=== PATIENT | male | born 1955 | race Two or more races ===

== ENCOUNTER 2017-08-17 17:26 | Inpatient (IN) | payer OTHER ==
[~2017-08-17] VITALS: Ht 167.6 cm; Wt 54.4 kg
[2017-08-17] MEDS ORDERED: ACETAMINOPHEN325 M1 ORAL (17:34)
[2017-08-17] MEDS ORDERED: ANDRODERM1 EAC2 TD (17:36)
[2017-08-17] MEDS ORDERED: ALBUTEROL2.5 MG/3 M INH (17:36)
[2017-08-17] MEDS ORDERED: CEPHALEXIN750 MG ORAL (17:39)
[2017-08-17] MEDS ORDERED: VITAMIN D1000 UNI1 ORAL (17:39)
[2017-08-17] MEDS ORDERED: CEFEPIME-D2 GM/50 ML IVPB (17:39)
[2017-08-17] MEDS ORDERED: [UNRECOGNIZED DRUG - OTHER] (17:39)
[2017-08-17] MEDS ORDERED: BACTRIM-DS1 EA ORAL (17:39)
[2017-08-17] MEDS ORDERED: POLYETHYLENE GLY1 G1 MC (17:42)
[2017-08-17] MEDS ORDERED: FAMOTIDINE20 MG ORAL (17:42)
[2017-08-17] MEDS ORDERED: IPRATROPIU0.2 MG/1 M HHN (17:56)
[2017-08-17] MEDS ORDERED: OXYCODONE-ACET1 EAC3 ORAL (17:56)
[2017-08-17] MEDS ORDERED: MULTIVITAMINS1 EAC8 ORAL (17:56)
[2017-08-17] MEDS ORDERED: MS CONTIN30 MG ORAL (17:56)
[2017-08-17] MEDS ORDERED: ACIDOPHILUS-PE1 EAC3 PO (17:56)
[2017-08-17] MEDS ORDERED: MAALOX PLUS (17:56)
[2017-08-17] MEDS ORDERED: SENNA LAXATIVE1 EAC1 PO (17:56)
[2017-08-17] MEDS ORDERED: AMBIEN5 MG ORAL (17:57)
[2017-08-17] MEDS ORDERED: ZINC30 MG ORAL (17:57)
[2017-08-17] MEDS ORDERED: TUBERSOL (PPD)0.1 ML IDERMAL (17:57)
[2017-08-17] MEDS ORDERED: SYNTHROID50 MCG ORAL (17:57)
--- NOTE | 2017-08-17 18:03 | Emergency Room Report ---
History of Present Illness General Chief Complaint: Altered Level of Consciousness Source: Family Member Present Illness HPI 62-year-old male, history of right facial lymphoma, was on chemotherapy, rate legs necrotizing fasciitis with a wound VAC, surgery done at outside hospital 2 weeks ago, coming from long term for altered mental status. Patient is currently not providing any history, history is obtained by [id number]. Daughter lives states that his normal mental status is awake alert oriented x3, he walked prior to the necrotizing fasciitis. States the last seen normal was yesterday. States that long term states that he is not talking or eating. Denies any known trauma Allergies: Coded Allergies: No Known Allergies (Unverified , 08/17/17) Patient History Past Medical History: see triage record Past Surgical History: none Pertinent Family History: none Reviewed Nursing Documentation: PMH: Agreed, PSxH: Agreed Nursing Documentation-PMH Hx Cancer: Yes - lymphoma Review of Systems All Other Systems: limited - altered Physical Exam Vital Signs Date Time Temp Pulse Resp B/P (MAP) Pulse Ox O2 Delivery O2 Flow Rate FiO2 08/17/17 17:18 72 17 126/82 100 Room Air Sp02 EP Interpretation: reviewed, normal General Appearance: other - Chronically ill-appearing thin middle-aged male, eyes open, eye contact, however not speaking, appears altered, Chronically Ill Head: normocephalic, atraumatic Eyes: bilateral eye normal inspection, bilateral eye PERRL, bilateral eye EOMI ENT: dry mucus membranes, other - abnormal R facial bone 2/2 to lymphoma Neck: normal inspection, full range of motion, supple Respiratory: normal inspection, lungs clear, normal breath sounds, no respiratory distress, no retraction, no wheezing, speaking full sentences, chest symmetrical Cardiovascular #1: normal inspection, regular rate, rhythm, normal capillary refill Cardiovascular #2: 2+ radial (R), 2+ radial (L) Gastrointestinal: normal inspection, non tender, soft, non-distended, no guarding, other - no grimace deep palpation Musculoskeletal: other - Right thigh with large surgical wound, wound VAC is attached, full range of motion passively all extremities, right chest with chemotherapy port Neurologic: other - altered and nonverbal, moves all ext spont Psychiatric: other - altered Skin: normal inspection, normal color, no rash, warm/dry, normal turgor Medical Decision Making Diagnostic Impression: Primary Impression: Altered level of consciousness Additional Impressions: Acute renal failure Dehydration Metabolic acidosis ER Course 62-year-old male with altered mental status DDX: Dehydration, electrolyte disturbance, infectious UTI/PNA ACS, Neuro: CVA / Intracranial bleed Plan: Accucheck, labs, ua, ucx, EKG, CXR CT head ER course: Vitals have remained stable during ED stay Patient continues to be awake however still not speaking CT Head likely calcifications but cannot completely exclude hematoma Labs significant for a bicarbonate of 7, and renal failure. Potassium is normal per son, patient has never had renal problems IVF given to patient Disposition: Patient is to be admitted to telemetry D/W Dr Sherif Dailey who has accepted pt for admission Please note that this Emergency Department Report was dictated using Flytenowmusical engineer technology software, occasionally this can lead to erroneous entry secondary to interpretation by the dictation equipment EKG Diagnostic Results EP Interpretation: Yes Rate: Tachycardic Rhythm: NSR ST Segments: T wave inversion aVL ASA given to patient: No Rhythm Strip EP Interpretation: Yes Rate: 100 Rhythm: NSR, no PVCs, no ectopy CXR Ordered: Yes 1 view Indication: AMS EP interpretation: Yes Interpretation: No consolidation, no effusion, no PTX, no acute cardiopulmonary disease Impression: No acute disease Electronically signed by Jeannette Torres MD Laboratory Tests Test 08/17/17 18:17 08/17/17 19:11 White Blood Count 7.4 K/UL (4.8-10.8) Red Blood Count 3.44 M/UL (4.70-6.10) L Hemoglobin 11.3 G/DL (14.2-18.0) L Hematocrit 34.9 % (42.0-52.0) L Mean Corpuscular Volume 101 FL (80-99) H Mean Corpuscular Hemoglobin 32.7 PG (27.0-31.0) H Mean Corpuscular Hemoglobin Concent 32.3 G/DL (32.0-36.0) Red Cell Distribution Width 17.4 % (11.6-14.8) H Platelet Count 370 K/UL (150-450) Mean Platelet Volume 5.7 FL (6.5-10.1) L Neutrophils (%) (Auto) 77.4 % (45.0-75.0) H Lymphocytes (%) (Auto) 3.7 % (20.0-45.0) L Monocytes (%) (Auto) 17.9 % (1.0-10.0) H Eosinophils (%) (Auto) 0.0 % (0.0-3.0) Basophils (%) (Auto) 0.9 % (0.0-2.0) Sodium Level 138 MMOL/L (136-145) Potassium Level 5.1 MMOL/L (3.5-5.1) Chloride Level 110 MMOL/L (98-107) H Carbon Dioxide Level 7 MMOL/L (21-32) *L Anion Gap 21 mmol/L (5-15) H Blood Urea Nitrogen 88 mg/dL (7-18) H Creatinine 5.8 MG/DL (0.55-1.30) H Estimate Glomerular Filtration Rate 10.0 mL/min (>60) Glucose Level 81 MG/DL (74-106) Lactic Acid Level 1.00 mmol/L (0.66-2.22) Calcium Level 10.0 MG/DL (8.5-10.1) Total Bilirubin 0.3 MG/DL (0.2-1.0) Aspartate Amino Transferase (AST) 42 U/L (15-37) H Alanine Aminotransferase (ALT) 53 U/L (12-78) Alkaline Phosphatase 91 U/L (46-116) Troponin I 0.007 ng/mL (0.000-0.056) Pro-B-Type Natriuretic Peptide 5409 pg/mL (0-125) H Total Protein 8.4 G/DL (6.4-8.2) H Albumin 2.4 G/DL (3.4-5.0) L Globulin 6.0 g/dL Arterial Blood pH 7.257 (7.350-7.450) Arterial Blood Partial Pressure CO2 18.6 mmHg (35.0-45.0) *L Arterial Blood Partial Pressure O2 119.7 mmHg (75.0-100.0) H Arterial Blood HCO3 8.1 mmol/L (22.0-26.0) L Arterial Blood Oxygen Saturation 98.0 % (92.0-98.0) Arterial Blood Base Excess -17.[address]/MRI/US Diagnostic Results CT/MRI/US Diagnostic Results : Imaging Test Ordered: CT Head Impression CT HEAD: Right basal ganglia 10 x 4 cm hyperdensity likely chronic calcifications, small hematoma less likely but cannot be entirely excluded. Chronic ischemic changes. Cannot exclude [id number] ischemia. Right maxillary sinus chronic deformity. Opacities in the right mastoid air cells. STAT RAD result Last Vital Signs Date Time Temp Pulse Resp B/P (MAP) Pulse Ox O2 Delivery O2 Flow Rate FiO2 08/17/17 17:18 72 17 126/82 100 Room Air Jeannette Torres M.D. Aug 17, 2017 18:03
[2017-08-17 18:40] LABS: BASOPHILS % (AUTO) 0.9 % (0.0-2.0); LYMPHOCYTES % (AUTO) 3.7 % (20.0-45.0); MEAN CORPUSCULAR HEMOGLOBIN 32.7 PG (27.0-31.0); MEAN CORPUSCULAR HGB CONC 32.3 G/DL (32.0-36.0); MEAN CORPUSCULAR VOLUME 101 FL (80-99); MEAN PLATELET VOLUME 5.7 FL (6.5-10.1); MONOCYTES % (AUTO) 17.9 % (1.0-10.0); NEUTROPHILS % (AUTO) 77.4 % (45.0-75.0); PLATELET COUNT 370 K/UL (150-450); RED BLOOD COUNT 3.44 M/UL (4.70-6.10); RED CELL DISTRIBUTION WIDTH 17.4 % (11.6-14.8); WHITE BLOOD COUNT 7.4 K/UL (4.8-10.8)
[2017-08-17 18:44] VITALS: BP 96/64
[2017-08-17 19:04] LABS: ANION GAP 21 mmol/L (5-15); CHLORIDE 110 MMOL/L (98-107); CREATININE 5.8 MG/DL (0.55-1.30); POTASSIUM 5.1 MMOL/L (3.5-5.1); SODIUM 138 MMOL/L (136-145)
[2017-08-17 19:05] LABS: CARBON DIOXIDE 7 MMOL/L (21-32)
[2017-08-17] MEDS ORDERED: Sodium Bicarbonate 50ml Carp IV ONE (19:15)
[2017-08-17 19:18] LABS: ALANINE AMINOTRANSFERASE 53 U/L (12-78); ASPARTATE AMINO TRANSFERASE 42 U/L (15-37); TOTAL PROTEIN 8.4 G/DL (6.4-8.2)
[2017-08-17 19:58] LABS: ABG ALLEN TEST POSITIVE; ABG PCO2 18.6 mmHg (35.0-45.0)
[2017-08-17 20:44] VITALS: BP 112/65
[2017-08-17] MEDS ORDERED: Sodium Bicarbonate 8.4% 50ml Inj ONE (22:04)
[2017-08-17] MEDS: Sodium Bicarbonate 50 ML in NS 1000ml 1,000 ML IV SCH (22:09)
[2017-08-17 22:22] VITALS: BP 118/61
[2017-08-17 22:30] VITALS: BP 121/54
[2017-08-17] MEDS ORDERED: Mylanta II UD 30ml ORAL PRN (23:00)
[2017-08-17] MEDS ORDERED: Morphine Sulfate 2mg/ml Inj IVP PRN (23:00)
[2017-08-17] MEDS ORDERED: LORazepam Inj 2mg/ml 1ml IV PRN (23:00)
[2017-08-17] MEDS ORDERED: Zolpidem 5mg tab ORAL PRN (23:00)
[2017-08-17] MEDS ORDERED: Miralax 17gm pkt ORAL PRN (23:00)
[2017-08-18] VITALS (23 sets, daily range): BP systolic 108–138; BP diastolic 46–115
[2017-08-18 00:11] LABS: ALANINE AMINOTRANSFERASE 45 U/L (12-78); ALBUMIN/GLOBULIN RATIO 0.4 (1.0-2.7); ANION GAP 17 mmol/L (5-15); ASPARTATE AMINO TRANSFERASE 39 U/L (15-37); CALCIUM 8.9 MG/DL (8.5-10.1); CARBON DIOXIDE 12 MMOL/L (21-32); CHLORIDE 114 MMOL/L (98-107); CREATININE 5.6 MG/DL (0.55-1.30); FREE T3 < 0.6 pg/mL (2.3-4.2); GLOMERULAR FILTRATION RATE 10.4 mL/min (>60); MAGNESIUM 2.5 MG/DL (1.8-2.4); OSMOLALITY SERUM 332 mOsm/kg (297-317); PHOSPHORUS 5.8 MG/DL (2.5-4.9); POTASSIUM 5.1 MMOL/L (3.5-5.1); SODIUM 143 MMOL/L (136-145); TOTAL PROTEIN 7.1 G/DL (6.4-8.2)
[2017-08-18] MEDS: Sodium Bicarbonate 50ml Carp IV SCH ×3 (00:58→03:24)
[2017-08-18 05:42] LABS: ABG PCO2 24.4 mmHg (35.0-45.0)
[2017-08-18 05:43] LABS: ABG BASE EXCESS -10.3
[2017-08-18 05:44] LABS: ABG ALLEN TEST POSITIVE
[2017-08-18 06:36] LABS: MEAN CORPUSCULAR HEMOGLOBIN 32.4 PG (27.0-31.0); MEAN CORPUSCULAR HGB CONC 32.3 G/DL (32.0-36.0); MEAN CORPUSCULAR VOLUME 100 FL (80-99); MEAN PLATELET VOLUME 5.3 FL (6.5-10.1); PLATELET COUNT 224 K/UL (150-450); RED BLOOD COUNT 2.83 M/UL (4.70-6.10); RED CELL DISTRIBUTION WIDTH 17.8 % (11.6-14.8); WHITE BLOOD COUNT 5.9 K/UL (4.8-10.8)
[2017-08-18 06:49] LABS: HEMOGLOBIN A1C 6.4 % (4.3-6.0)
[2017-08-18 07:05] LABS: ALANINE AMINOTRANSFERASE 45 U/L (12-78); ALBUMIN/GLOBULIN RATIO 0.4 (1.0-2.7); ANION GAP 21 mmol/L (5-15); ASPARTATE AMINO TRANSFERASE 40 U/L (15-37); CALCIUM 8.7 MG/DL (8.5-10.1); CARBON DIOXIDE 14 MMOL/L (21-32); CHLORIDE 116 MMOL/L (98-107); CHOLESTEROL 120 MG/DL (< 200); CHOLESTEROL/HDL RATIO 4.3 (3.3-4.4); CREATININE 5.7 MG/DL (0.55-1.30); GLOMERULAR FILTRATION RATE 10.2 mL/min (>60); POTASSIUM 4.1 MMOL/L (3.5-5.1); SODIUM 151 MMOL/L (136-145); TOTAL PROTEIN 6.3 G/DL (6.4-8.2)
[2017-08-18 08:01] LABS: ANISOCYTOSIS 1+; BAND NEUTROPHILS % (MANUAL) 0 % (0-8); BASOPHILS % (MANUAL) 0 % (0-2); EOSINOPHILS % (MANUAL) 0 % (0-3); HYPOCHROMASIA 1+; LYMPHOCYTES % (MANUAL) 13 % (20-45); MACROCYTES 1+; NEUTROPHILS % (MANUAL) 65 % (45-75); PLATELET ESTIMATE ADEQUATE; PLATELET MORPHOLOGY NORMAL; TOTAL CELLS COUNTED 100
[2017-08-18] MEDS: Heparin 5000 units/ml inj SUBQ SCH ×2 (09:00→20:51)
--- NOTE | 2017-08-18 09:00 | Pulmonolgy Critical Care Note ---
Critical Care - Asmt/Plan Assessment/Plan: ASSESSMENT acute toxic metabolic encephalopathy r/o CVA acute renal failure possible dehydration metabolic acidosis e/lyte imbalance intermittent jerks , r/o seizure disorder anemia R facial lymphoma ( on chemo) R left thigh necrotizing fasciitis ( with wound vac) severe protein calorie malnutrition elevated TSH hx of smoking PLAN OF CARE ICU status CT head no acute findings was in SNF for rehab when became unresponsive , prior A/A/O , communicative and ambulated prior to necrotizing fasciitis O2 HHN prn MRI brain in am EEG neuro eval IVF with bicarb ( change to deztrose due to elevated Na) monitor renal parameters, avoid nephrotoxic bicarb improving, creat without significant change renal US nephro eval monitor lytes, correct as needed empiric abx, ID eval- per PMD anemia workup, likely 2 to chemo , monitor counts and transfuse prn continue wound VAC wound nurse eval NPO for now NG tube for meds get X ray R thigh surgery done in July 2017, CXR no acute findings hx of smoking as per daughter pain management bowel regimen dietary eval PT/OT DVT prophayxlis free T4 WNL with elevated TSH case discussed and evaluated by supervising physician Critical Care - Objective Last 24 Hour Vital Signs Date Time Temp Pulse Resp B/P (MAP) Pulse Ox O2 Delivery O2 Flow Rate FiO2 08/18/17 08:00 98.5 66 16 124/61 100 Room Air 08/18/17 08:00 64 08/18/17 07:00 65 14 122/59 100 Room Air 08/18/17 06:00 73 14 127/77 100 Room Air 08/18/17 05:00 79 14 120/70 100 Room Air 08/18/17 04:00 97.7 69 14 121/63 100 Room Air 08/18/17 03:00 14 121/65 100 Room Air 08/18/17 02:00 73 18 126/66 100 Room Air 08/18/17 01:00 97.2 86 20 127/77 100 Room Air 08/18/17 01:00 81 08/17/17 22:30 97.0 90 20 121/54 Room Air 100.0 08/17/17 22:22 97.8 82 17 118/61 100 Room Air 08/17/17 22:22 97.8 82 17 118/61 100 Room Air 08/17/17 20:44 97.8 88 14 112/65 100 Room Air 08/17/17 18:44 97.4 94 18 96/64 100 Room Air 08/17/17 17:18 72 17 126/82 100 Room Air Status: other - somnolent , but open eyes to deep tactile stimuli , cachectic male, nonverbal, chest and upper arms with tattoos Condition: critical HEENT: atraumatic, other - L facial droop, R sided facial changes , Lungs: rhonchi - few scattered Heart: HR/BP stable, other - R chest PACm intact Abdomen: soft, non-tender, active bowel sounds Extremities: no C/C/E, other - Right thigh with large surgical wound, wound VAC is attached, Critical Care - Subjective ROS Limited/Unobtainable: Yes Interval Events: remains altered with intermittent jerks bicarb better renal parameters without change no signs of respiratory distress Condition: critical IV Access: peripheral EKG Rhythm: Sinus Rhythm Fluids: D5W + 1 amp bicarb at 100 I&O: Intake and Output 08/18/17 08/19/17 19:00 07:00 Output Total 0 ml Balance 0 ml Output Urine Total 0 ml CXR: no acute findings Estefania Fregoso NP ([facility]anchte[facility]) Aug 18, 2017 09:00
[2017-08-18] MEDS ORDERED: Vancomycin 1.5 GM/D5W 250ML IVPB ONE (09:30)
[2017-08-18] MEDS: Piperacillin/Tazobactam 2.25 GM in D5W 55 ML IVPB SCH ×2 (09:36→16:18)
--- NOTE | 2017-08-18 10:05 | Diagnostic Imaging Report ---
Indication: Altered mental status Technique: Contiguous 5 mm thick transaxial imaging of the head obtained in a Siemens Sensation [address] scanner. Soft tissue and bone windows generated. Automatic Exposure Control was utilized. Total Dose length Product (DLP): [address] Dose Index Volume (CTDIvol): 70.38, 0.15 mGy Comparison: none Findings: There is moderate prominence of the ventricles, basal cisterns, and cerebral sulci consistent with atrophy. Moderate, nonspecific, white matter hypoattenuation is noted throughout the brain consistent with chronic small vessel disease. There is no midline shift, edema, acute hemorrhage, mass effect, or abnormal extra-axial fluid collections. There is opacification of the right mastoid air cells consistent with mastoiditis. There is scattered opacification of the paranasal sinuses as well. Patient is had extensive maxillary sinus surgery. Impression: No acute intracranial bleed, mass effect or edema. Moderate atrophy of the brain. Evidence of chronic small vessel disease involving white matter tracts. Severe chronic sinusitis and right mastoiditis. Status post sinus surgery The CT scanner at [facility] is accredited by the [employer] and the scans are performed using dose optimization techniques as appropriate to a performed exam including Automatic Exposure control.
--- NOTE | 2017-08-18 10:24 | Diagnostic Imaging Report ---
Indication: Dyspnea Comparison: None A single view chest radiograph was obtained. Findings: Right chest port noted. Heart size is normal. The lungs appear clear. No pleural effusions are seen. Bones are osteopenic. Impression: No acute findings. Chest port
--- NOTE | 2017-08-18 10:43 | Diagnostic Imaging Report ---
Indications: hip pain Findings: Single view right hip obtained No obvious fracture or malalignment seen on this single view. Degenerative changes of the lower lumbar spine noted. Impression: Limited negative exam for acute injury
[2017-08-18] MEDS: Sodium Bicarbonate 50 ML in NS 1000ml 1,000 ML IV SCH (11:16)
[2017-08-18] MEDS: Sodium Bicarbonate 50 ML in D5W 1000ml 1,000 ML IV SCH ×2 (11:40→23:01)
--- NOTE | 2017-08-18 12:18 | Consultation ---
Consult Note Consult Note 62-year-old male, history of right facial lymphoma, was on chemotherapy, rate legs necrotizing fasciitis with a wound VAC, surgery done at outside hospital 2 weeks ago, coming from long term for altered mental status. Patient is currently not providing any history, history is obtained by [id number]. Daughter lives states that his normal mental status is awake alert oriented x3, he walked prior to the necrotizing fasciitis. States the last seen normal was yesterday. States that long term states that he is not talking or eating. Denies any known trauma patient seen- data reviewed discussed with assurance officer/Plan status: acute toxic metabolic encephalopathy r/o CVA acute renal failure with possible dehydration Wasted and sever malnutrition metabolic acidosis e/lyte imbalance intermittent jerks , r/o seizure disorder anemia R facial lymphoma ( on chemo) R left thigh necrotizing fasciitis ( with wound vac) severe protein calorie malnutrition elevated TSH hx of smoking Plan: Bladder scan Urine studies kidney DANI 2D Echo Avoid nephrotoxics- Neuro RYAN Fernandez Aug 18, 2017 12:18
[2017-08-18] MEDS ORDERED: LORazepam Inj 2mg/ml 1ml IV ONE (14:30)
--- NOTE | 2017-08-18 14:45 | Cardiac Electrophysiology PN ---
Subjective Subjective [id number] Objective Last 24 Hour Vital Signs Date Time Temp Pulse Resp B/P (MAP) Pulse Ox O2 Delivery O2 Flow Rate FiO2 08/18/17 14:00 61 14 125/46 100 Room Air 08/18/17 13:00 74 14 130/52 100 Room Air 08/18/17 12:00 98.4 70 16 123/56 100 Room Air 08/18/17 12:00 73 08/18/17 11:00 70 14 128/102 98 Room Air 08/18/17 10:00 72 15 128/69 100 Room Air 08/18/17 09:00 70 12 124/77 100 Room Air 08/18/17 08:00 98.5 66 16 124/61 100 Room Air 08/18/17 08:00 64 08/18/17 07:00 65 14 122/59 100 Room Air 08/18/17 06:00 73 14 127/77 100 Room Air 08/18/17 05:00 79 14 120/70 100 Room Air 08/18/17 04:00 97.7 69 14 121/63 100 Room Air 08/18/17 03:00 14 121/65 100 Room Air 08/18/17 02:00 73 18 126/66 100 Room Air 08/18/17 01:00 97.2 86 20 127/77 100 Room Air 08/18/17 01:00 81 08/17/17 22:30 97.0 90 20 121/54 Room Air 100.0 08/17/17 22:22 97.8 82 17 118/61 100 Room Air 08/17/17 22:22 97.8 82 17 118/61 100 Room Air 08/17/17 20:44 97.8 88 14 112/65 100 Room Air 08/17/17 18:44 97.4 94 18 96/64 100 Room Air 08/17/17 17:18 72 17 126/82 100 Room Air Intake and Output 08/18/17 08/19/17 19:00 07:00 Output Total 100 ml Balance -100 ml Output Urine Total 100 ml # Voids 1 Laboratory Tests Test 08/17/17 18:17 08/17/17 19:11 08/17/17 23:30 08/18/17 04:30 White Blood Count 7.4 K/UL (4.8-10.8) Red Blood Count 3.44 M/UL (4.70-6.10) L Hemoglobin 11.3 G/DL (14.2-18.0) L Hematocrit 34.9 % (42.0-52.0) L Mean Corpuscular Volume 101 FL (80-99) H Mean Corpuscular Hemoglobin 32.7 PG (27.0-31.0) H Mean Corpuscular Hemoglobin Concent 32.3 G/DL (32.0-36.0) Red Cell Distribution Width 17.4 % (11.6-14.8) H Platelet Count 370 K/UL (150-450) Mean Platelet Volume 5.7 FL (6.5-10.1) L Neutrophils (%) (Auto) 77.4 % (45.0-75.0) H Lymphocytes (%) (Auto) 3.7 % (20.0-45.0) L Monocytes (%) (Auto) 17.9 % (1.0-10.0) H Eosinophils (%) (Auto) 0.0 % (0.0-3.0) Basophils (%) (Auto) 0.9 % (0.0-2.0) Sodium Level 138 MMOL/L (136-145) 143 MMOL/L (136-145) Potassium Level 5.1 MMOL/L (3.5-5.1) 5.1 MMOL/L (3.5-5.1) Chloride Level 110 MMOL/L (98-107) H 114 MMOL/L (98-107) H Carbon Dioxide Level 7 MMOL/L (21-32) *L 12 MMOL/L (21-32) L Anion Gap 21 mmol/L (5-15) H 17 mmol/L (5-15) H Blood Urea Nitrogen 88 mg/dL (7-18) H 87 mg/dL (7-18) H Creatinine 5.8 MG/DL (0.55-1.30) H 5.6 MG/DL (0.55-1.30) H Estimat Glomerular Filtration Rate 10.0 mL/min (>60) 10.4 mL/min (>60) Glucose Level 81 MG/DL (74-106) 76 MG/DL (74-106) Lactic Acid Level 1.00 mmol/L (0.66-2.22) Calcium Level 10.0 MG/DL (8.5-10.1) 8.9 MG/DL (8.5-10.1) Total Bilirubin 0.3 MG/DL (0.2-1.0) 0.3 MG/DL (0.2-1.0) Aspartate Amino Transf (AST/SGOT) 42 U/L (15-37) H 39 U/L (15-37) H Alanine Aminotransferase (ALT/SGPT) 53 U/L (12-78) 45 U/L (12-78) Alkaline Phosphatase 91 U/L (46-116) 80 U/L (46-116) Troponin I 0.007 ng/mL (0.000-0.056) Pro-B-Type Natriuretic Peptide 5409 pg/mL (0-125) H Total Protein 8.4 G/DL (6.4-8.2) H 7.1 G/DL (6.4-8.2) Albumin 2.4 G/DL (3.4-5.0) L 2.1 G/DL (3.4-5.0) L Globulin 6.0 g/dL 5.0 g/dL Arterial Blood pH 7.257 (7.350-7.450) 7.369 (7.350-7.450) Arterial Blood Partial Pressure CO2 18.6 mmHg (35.0-45.0) *L 24.4 mmHg (35.0-45.0) *L Arterial Blood Partial Pressure O2 119.7 mmHg (75.0-100.0) H 114.0 mmHg (75.0-100.0) H Arterial Blood HCO3 8.1 mmol/L (22.0-26.0) L 13.8 mmol/L (22.0-26.0) L Arterial Blood Oxygen Saturation 98.0 % (92.0-98.0) 97.5 % (92.0-98.0) Arterial Blood Base Excess -17.0 -10.3 Darell Test Positive Positive Osmolality 332 mOsm/kg (297-317) H Uric Acid 7.0 MG/DL (2.6-7.2) Phosphorus Level 5.8 MG/DL (2.5-4.9) H Magnesium Level 2.5 MG/DL (1.8-2.4) H Total Creatine Kinase 13 U/L (26-308) L Albumin/Globulin Ratio 0.4 (1.0-2.7) L Free Thyroxine 0.79 NG/DL (0.76-1.46) Free Triiodothyronine < 0.6 pg/mL (2.3-4.2) L Cortisol Pending Test 08/18/17 06:20 White Blood Count 5.9 K/UL (4.8-10.8) Red Blood Count 2.83 M/UL (4.70-6.10) L Hemoglobin 9.2 G/DL (14.2-18.0) L Hematocrit 28.3 % (42.0-52.0) L Mean Corpuscular Volume 100 FL (80-99) H Mean Corpuscular Hemoglobin 32.4 PG (27.0-31.0) H Mean Corpuscular Hemoglobin Concent 32.3 G/DL (32.0-36.0) Red Cell Distribution Width 17.8 % (11.6-14.8) H Platelet Count 224 K/UL (150-450) Mean Platelet Volume 5.3 FL (6.5-10.1) L Neutrophils (%) (Auto) % (45.0-75.0) Lymphocytes (%) (Auto) % (20.0-45.0) Monocytes (%) (Auto) % (1.0-10.0) Eosinophils (%) (Auto) % (0.0-3.0) Basophils (%) (Auto) % (0.0-2.0) Differential Total Cells Counted 100 Neutrophils % (Manual) 65 % (45-75) Lymphocytes % (Manual) 13 % (20-45) L Monocytes % (Manual) 22 % (1-10) H Eosinophils % (Manual) 0 % (0-3) Basophils % (Manual) 0 % (0-2) Band Neutrophils 0 % (0-8) Platelet Estimate Adequate Platelet Morphology Normal Hypochromasia 1+ Anisocytosis 1+ Macrocytosis 1+ Sodium Level 151 MMOL/L (136-145) H Potassium Level 4.1 MMOL/L (3.5-5.1) Chloride Level 116 MMOL/L (98-107) H Carbon Dioxide Level 14 MMOL/L (21-32) L Anion Gap 21 mmol/L (5-15) H Blood Urea Nitrogen 92 mg/dL (7-18) H Creatinine 5.7 MG/DL (0.55-1.30) H Estimat Glomerular Filtration Rate 10.2 mL/min (>60) Glucose Level 75 MG/DL (74-106) Hemoglobin A1c 6.4 % (4.3-6.0) H Calcium Level 8.7 MG/DL (8.5-10.1) Total Bilirubin 0.3 MG/DL (0.2-1.0) Aspartate Amino Transf (AST/SGOT) 40 U/L (15-37) H Alanine Aminotransferase (ALT/SGPT) 45 U/L (12-78) Alkaline Phosphatase 72 U/L (46-116) Total Protein 6.3 G/DL (6.4-8.2) L Albumin 1.9 G/DL (3.4-5.0) L Globulin 4.4 g/dL Albumin/Globulin Ratio 0.4 (1.0-2.7) L Triglycerides Level 137 MG/DL (30-150) Cholesterol Level 120 MG/DL (< 200) LDL Cholesterol 66 mg/dL (<100) HDL Cholesterol 28 MG/DL (40-60) L Cholesterol/HDL Ratio 4.3 (3.3-4.4) Thyroid Stimulating Hormone (TSH) 4.460 uiU/mL (0.358-3.740) NICOLÁS PARKINSON Aug 18, 2017 14:45
--- NOTE | 2017-08-18 14:49 | Neurology Progress Note ---
Interim History Interim History ROS Limited/Unobtainable: Yes Objective Physical Exam Last Vital Signs Date Time Temp Pulse Resp B/P (MAP) Pulse Ox O2 Delivery O2 Flow Rate FiO2 08/18/17 14:00 61 14 125/46 100 Room Air 08/18/17 12:00 98.4 08/17/17 22:30 100.0 Laboratory Tests Test 08/17/17 18:17 08/17/17 19:11 08/17/17 23:30 08/18/17 04:30 White Blood Count 7.4 K/UL (4.8-10.8) Red Blood Count 3.44 M/UL (4.70-6.10) L Hemoglobin 11.3 G/DL (14.2-18.0) L Hematocrit 34.9 % (42.0-52.0) L Mean Corpuscular Volume 101 FL (80-99) H Mean Corpuscular Hemoglobin 32.7 PG (27.0-31.0) H Mean Corpuscular Hemoglobin Concent 32.3 G/DL (32.0-36.0) Red Cell Distribution Width 17.4 % (11.6-14.8) H Platelet Count 370 K/UL (150-450) Mean Platelet Volume 5.7 FL (6.5-10.1) L Neutrophils (%) (Auto) 77.4 % (45.0-75.0) H Lymphocytes (%) (Auto) 3.7 % (20.0-45.0) L Monocytes (%) (Auto) 17.9 % (1.0-10.0) H Eosinophils (%) (Auto) 0.0 % (0.0-3.0) Basophils (%) (Auto) 0.9 % (0.0-2.0) Sodium Level 138 MMOL/L (136-145) 143 MMOL/L (136-145) Potassium Level 5.1 MMOL/L (3.5-5.1) 5.1 MMOL/L (3.5-5.1) Chloride Level 110 MMOL/L (98-107) H 114 MMOL/L (98-107) H Carbon Dioxide Level 7 MMOL/L (21-32) *L 12 MMOL/L (21-32) L Anion Gap 21 mmol/L (5-15) H 17 mmol/L (5-15) H Blood Urea Nitrogen 88 mg/dL (7-18) H 87 mg/dL (7-18) H Creatinine 5.8 MG/DL (0.55-1.30) H 5.6 MG/DL (0.55-1.30) H Estimat Glomerular Filtration Rate 10.0 mL/min (>60) 10.4 mL/min (>60) Glucose Level 81 MG/DL (74-106) 76 MG/DL (74-106) Lactic Acid Level 1.00 mmol/L (0.66-2.22) Calcium Level 10.0 MG/DL (8.5-10.1) 8.9 MG/DL (8.5-10.1) Total Bilirubin 0.3 MG/DL (0.2-1.0) 0.3 MG/DL (0.2-1.0) Aspartate Amino Transf (AST/SGOT) 42 U/L (15-37) H 39 U/L (15-37) H Alanine Aminotransferase (ALT/SGPT) 53 U/L (12-78) 45 U/L (12-78) Alkaline Phosphatase 91 U/L (46-116) 80 U/L (46-116) Troponin I 0.007 ng/mL (0.000-0.056) Pro-B-Type Natriuretic Peptide 5409 pg/mL (0-125) H Total Protein 8.4 G/DL (6.4-8.2) H 7.1 G/DL (6.4-8.2) Albumin 2.4 G/DL (3.4-5.0) L 2.1 G/DL (3.4-5.0) L Globulin 6.0 g/dL 5.0 g/dL Arterial Blood pH 7.257 (7.350-7.450) 7.369 (7.350-7.450) Arterial Blood Partial Pressure CO2 18.6 mmHg (35.0-45.0) *L 24.4 mmHg (35.0-45.0) *L Arterial Blood Partial Pressure O2 119.7 mmHg (75.0-100.0) H 114.0 mmHg (75.0-100.0) H Arterial Blood HCO3 8.1 mmol/L (22.0-26.0) L 13.8 mmol/L (22.0-26.0) L Arterial Blood Oxygen Saturation 98.0 % (92.0-98.0) 97.5 % (92.0-98.0) Arterial Blood Base Excess -17.0 -10.3 Darell Test Positive Positive Osmolality 332 mOsm/kg (297-317) H Uric Acid 7.0 MG/DL (2.6-7.2) Phosphorus Level 5.8 MG/DL (2.5-4.9) H Magnesium Level 2.5 MG/DL (1.8-2.4) H Total Creatine Kinase 13 U/L (26-308) L Albumin/Globulin Ratio 0.4 (1.0-2.7) L Free Thyroxine 0.79 NG/DL (0.76-1.46) Free Triiodothyronine < 0.6 pg/mL (2.3-4.2) L Cortisol Pending Test 08/18/17 06:20 White Blood Count 5.9 K/UL (4.8-10.8) Red Blood Count 2.83 M/UL (4.70-6.10) L Hemoglobin 9.2 G/DL (14.2-18.0) L Hematocrit 28.3 % (42.0-52.0) L Mean Corpuscular Volume 100 FL (80-99) H Mean Corpuscular Hemoglobin 32.4 PG (27.0-31.0) H Mean Corpuscular Hemoglobin Concent 32.3 G/DL (32.0-36.0) Red Cell Distribution Width 17.8 % (11.6-14.8) H Platelet Count 224 K/UL (150-450) Mean Platelet Volume 5.3 FL (6.5-10.1) L Neutrophils (%) (Auto) % (45.0-75.0) Lymphocytes (%) (Auto) % (20.0-45.0) Monocytes (%) (Auto) % (1.0-10.0) Eosinophils (%) (Auto) % (0.0-3.0) Basophils (%) (Auto) % (0.0-2.0) Differential Total Cells Counted 100 Neutrophils % (Manual) 65 % (45-75) Lymphocytes % (Manual) 13 % (20-45) L Monocytes % (Manual) 22 % (1-10) H Eosinophils % (Manual) 0 % (0-3) Basophils % (Manual) 0 % (0-2) Band Neutrophils 0 % (0-8) Platelet Estimate Adequate Platelet Morphology Normal Hypochromasia 1+ Anisocytosis 1+ Macrocytosis 1+ Sodium Level 151 MMOL/L (136-145) H Potassium Level 4.1 MMOL/L (3.5-5.1) Chloride Level 116 MMOL/L (98-107) H Carbon Dioxide Level 14 MMOL/L (21-32) L Anion Gap 21 mmol/L (5-15) H Blood Urea Nitrogen 92 mg/dL (7-18) H Creatinine 5.7 MG/DL (0.55-1.30) H Estimat Glomerular Filtration Rate 10.2 mL/min (>60) Glucose Level 75 MG/DL (74-106) Hemoglobin A1c 6.4 % (4.3-6.0) H Calcium Level 8.7 MG/DL (8.5-10.1) Total Bilirubin 0.3 MG/DL (0.2-1.0) Aspartate Amino Transf (AST/SGOT) 40 U/L (15-37) H Alanine Aminotransferase (ALT/SGPT) 45 U/L (12-78) Alkaline Phosphatase 72 U/L (46-116) Total Protein 6.3 G/DL (6.4-8.2) L Albumin 1.9 G/DL (3.4-5.0) L Globulin 4.4 g/dL Albumin/Globulin Ratio 0.4 (1.0-2.7) L Triglycerides Level 137 MG/DL (30-150) Cholesterol Level 120 MG/DL (< 200) LDL Cholesterol 66 mg/dL (<100) HDL Cholesterol 28 MG/DL (40-60) L Cholesterol/HDL Ratio 4.3 (3.3-4.4) Thyroid Stimulating Hormone (TSH) 4.460 uiU/mL (0.358-3.740) Impression/Recommendations Problems: (1) new onset of verbal unresponsiveness and generalised myoclonus, r.o seizure activity (2) r/o meningeal carcinomatosis (3) Acute renal failure (4) Metabolic acidosis Status: unchanged Recommendations #[id number] ESEQUIEL JEFFERSON Aug 18, 2017 14:49
[2017-08-18] MEDS ORDERED: LORazepam Inj 2mg/ml 1ml IV PRN (15:00)
[2017-08-18 15:31] LABS: IRON 72 ug/dL (50-175); TOTAL IRON BINDING CAPACITY 148 ug/dL (250-450)
--- NOTE | 2017-08-18 16:30 | History and Physical Report ---
DATE OF ADMISSION: 08/17/2017 TIME SEEN: At 8 a.m. ATTENDING PHYSICIAN: Sherif Dailey D.O. CONSULTANTS: 1. Alex Noble .M.D. 2. Dr. Oates. 3. Johny Alegria M.D. 4. Tesfaye Mchugh M.D. 5. Dr. Brumfield. CHIEF COMPLAINT: Altered mental status and lethargy. BRIEF HISTORY: This is a 62-year-old male from [facility] with history of lymphoma. Recently was hospitalized for hip fasciitis surgery, transferred to [facility] for wound care. Apparently, yesterday he became very altered and not responding to questions. The patient was transferred to [facility], diagnosed with the above, admitted to ICU for further care. Currently lethargic in bed, not responding to questions. PAST MEDICAL HISTORY: Includes lymphoma, hip fasciitis, new renal failure, dehydration, and altered mental status. PAST SURGICAL HISTORY: Right hip wound surgery. MEDICATIONS: Include vancomycin, heparin, Zosyn, levothyroxine, Tylenol, morphine, Zofran, lorazepam, and zolpidem. ALLERGIES: Denies. SOCIAL HISTORY: No smoking. No alcohol. No intravenous drug abuse. FAMILY HISTORY: Noncontributory. REVIEW OF SYSTEMS: Unavailable. PHYSICAL EXAMINATION: GENERAL: Lethargic in bed, nonverbal. VITAL SIGNS: Temperature is 98, pulse 66, respirations 64, and blood pressure 124/61. CARDIOVASCULAR: No murmur. LUNGS: Poor exchange. ABDOMEN: Bowel sounds positive. Nontender and nondistended. EXTREMITIES: No cyanosis, clubbing, or edema. NEUROLOGIC: The patient is flaccid in bed, not responding to questions. LABORATORY DATA: Labs at this time show hemoglobin 9.2, otherwise CBC is normal. BMP shows sodium 151, chloride 116, BUN and creatinine 92/5.7, and glucose 75. Troponin 0.007. Albumin 1.9. ASSESSMENT: 1. Altered mental status. 2. Lymphoma. 3. Anemia. 4. Hypothyroid. 5. Hip fasciitis. 6. Malnutrition. 7. New renal failure. 8. Dehydration. PLAN: 1. Continue premedications. 2. OT, PT, and dietary evaluation. 3. Wound care. 4. CBC and BMP in the morning. 5. Resume home medications. 6. Dr. Noble, Dr. Oates, Dr. Alegria, Dr. Mchugh, and Dr. Brumfield to consult. 7. We will continue to follow this patient. Sherif Dailey D.O. DR: POORNIMA JOB#: [id number] CC:
--- NOTE | 2017-08-18 18:30 | Consultation ---
DATE OF CONSULTATION: 08/18/2017 INFECTIOUS DISEASE CONSULTATION CONSULTING PHYSICIAN: Huan Samayoa M.D. PRIMARY ATTENDING PHYSICIAN: Sherif Dailey D.O. REASON FOR CONSULTATION: Altered mental status, rule out infectious cause. HISTORY OF PRESENT ILLNESS: This is a 62-year-old male transferred from a nursing facility because of altered mental status. According to the ER doctor note, the patient was awake, alert, and oriented x3 before he became nonresponsive. The patient was recently transferred from [facility]. 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 He was on antibiotic for necrotizing fasciitis that was supposed to be continued until 08/22/2017. PAST MEDICAL HISTORY: Significant for facial lymphoma, the patient is status post surgery and chemotherapy, necrotizing fasciitis of right hip. The patient has wound VAC and has Port-A-Cath placement. ALLERGIES: No known drug allergy. MEDICATIONS: Heparin, levothyroxine, morphine, Tylenol, MiraLAX, Zofran, clonidine, and sodium bicarbonate. SOCIAL HISTORY: halfway resident. No other history was obtainable by the patient. He is . REVIEW OF SYSTEMS: Unobtainable. PHYSICAL EXAMINATION: VITAL SIGNS: Temperature 97.7, pulse 65, and blood pressure 122/59. GENERAL APPEARANCE: Seems cachectic. Opens eyes. Not verbal. HEAD AND NECK: He has facial deformity to the right side of the face and has lateral deviation of the right eye. HEART: He has normal rate. He has a Port-A-Cath in the right side of the chest. LUNGS: Clear. ABDOMEN: Soft. It is nontender. EXTREMITIES: He has wound VAC in the right hip area. LABORATORY DATA: Sodium 151, chloride 116, bicarbonate 14, BUN 92, creatinine 5.7, and glucose 75. Magnesium 2.5. Albumin 1.9. AST is slightly elevated at 40. The patient had blood gas which showed acidosis with pCO2 of 18.6 and pH of 7.257 at the time of admission that improved. CT scan of the head, preliminary report was negative except right maxillary sinus deformity and opacity in the right mastoid air cells. IMPRESSION AND PLAN: Recent history of right hip necrotizing fasciitis. The patient was on antibiotic before admission. The patient may have mastoiditis in the right mastoid air cells. He had altered mental status, acute renal failure on chronic kidney disease, anemia, and hypernatremia. RECOMMENDATIONS: We will start the patient on vancomycin and Zosyn. We will follow up the cultures that were ordered at the time of admission. We will ask for a right hip x-ray. At the end of my exam, I thank Dr. Sherif Dailey for involving me in the care of this patient. Huan Samayoa M.D. DR: JANINE JOB#: [id number] CC: CHYNA
[2017-08-18 18:38] LABS: APPEARANCE,URINE SLIGHTLY CLOUDY; KETONES,URINE 3+ (NEGATIVE); LEUKOCYTE ESTERASE ,URINE 1+ (NEGATIVE); NITRITE,URINE NEGATIVE (NEGATIVE); PH,URINE 5 (4.5-8.0); PROTEIN,URINE 3+ (NEGATIVE); UROBILINOGEN,URINE NORMAL MG/DL (0.0-1.0)
[2017-08-18 18:46] LABS: AMORPHOUS SEDIMENT,UR MANY /LPF; BACTERIA,URINE MODERATE /HPF; RBC,URINE 0-2 /HPF (0 - 0); WBC,URINE 0-2 /HPF (0 - 0)
[2017-08-18] MEDS: Dyna-Hex 2% Top Sol 2oz TOPIC SCH (20:48)
--- NOTE | 2017-08-18 21:00 | Consultation ---
DATE OF CONSULTATION: 08/18/2017 NEUROLOGICAL CONSULTATION CONSULTING PHYSICIAN: Tesfaye Mchugh M.D. REQUESTING PHYSICIAN: Sherif Dailey D.O. HISTORY OF PRESENT ILLNESS: This 62-year-old gentleman seen in neurological consultation to evaluate new onset of verbal unresponsiveness and involuntary arm leg movement. The patient was unable to provide with a history. This was compiled from medical records. The patient has a history of facial lymphoma. This required chemotherapy. Two weeks ago, he was diagnosed with right thigh necrotizing fasciitis, treated with surgery, and after the hospitalization, he was discharged to a nursing facility for recuperation. Approximately a week ago, he was noted to have limited verbal output, felt that he may not like to talk, but this was not unlike him. So, when the family came to revisit him, they found that he was not ambulating, he was not talking, and he was not eating. He was brought to emergency room where the vital signs were stable and he was afebrile. Examination revealed right thigh large surgical wound. Wound VAC was attached. He was moving arms and legs. He was chronically appearing with eye contact, but without verbal contact. Since admission, the patient was able to eat few small portions, but remained nonverbal. Laboratory studies included CBC study with hemoglobin 11.3, hematocrit 34.9, elevated MCV and MCH. Repeat study revealed hemoglobin of 9.2 and hematocrit 28.3, remaining with elevated MCV and MCH. His chemistry panel; carbon dioxide of 7, anion gap of 21, BUN of 88, and creatinine 5.8. His BNP of 54.09 with total protein of 8.4, elevated TSH 4.460 and unremarkable lipid panel, BMP, but low albumin of 1.9. Blood gases with pCO2 of 18.6, pH 7.253, and pO2 of 111.7. Imaging studies included a hip x-ray, which was negative for any acute injuries. Chest x-ray, no acute findings and chest port noted. CAT scan of the brain revealing no acute intracranial bleeding, mass, or edema. There was moderate atrophy of the brain, chronic small vessel disease, severe chronic sinusitis, and right-sided mastoiditis, status post sinus surgery. Following admission till present, condition remained essentially unchanged. PAST MEDICAL HISTORY: 1. The patient has a history of lymphoma, status post chemotherapy. 2. Right thigh necrotizing fasciitis. 3. Hypothyroidism. 4. History of nicotine dependency. FAMILY HISTORY: Noncontributory. SOCIAL HISTORY: The patient lives currently at [facility]. He has a supportive family. He has no evidence of previous alcohol or drug abuse. REVIEW OF SYMPTOMS: Unable to obtain due to the patient's status. PHYSICAL EXAMINATION: GENERAL: A well-developed, cachectic, ill-appearing man, not in acute distress. VITAL SIGNS: Stable. Now blood pressure 125/46, heart rate of 61, and pulse oximetry 100%. HEENT: Head, normocephalic. There is a slight facial deformity following previous radiation therapy. NECK: Rigid in all directions. MUSCULOSKELETAL EXAMINATION: Remarkable for right thigh wound covered with VAC. Peripheral pulses 1+ and symmetric. There is smallness of right orbital fissure. MENTAL STATUS: The patient is drowsy, but arousable, opens eyes, has a brief eye contact, does not follow any commands, nonverbal. CRANIAL NERVE II: Pupils are 3 mm on the left and 2 mm on the right with slight right eye exotropia and partial ptosis on the right. CRANIAL NERVE V: Normal corneal responses. CRANIAL NERVE VII: Drooped right nasolabial fold. CRANIAL NERVE VIII: Unable to test. CRANIAL NERVES IX THROUGH XII: Reduced gag response. MOTOR EXAMINATION: No spontaneous movement. There is a non-spontaneous intermittent jerking, at times rhythmic jerking of both arms and lesser degree in both lower extremities, resembling diffuse myoclonus. The patient does not keep arms or legs against the gravity. There is muscle wasting predominantly of both lower extremities. Deep tendon reflexes depressed bilaterally. Plantar response is mute. Gait not tested. IMPRESSION: 1. New onset of progressive verbal unresponsiveness with obtundation and generalized myoclonus, rule out ongoing seizure activity, rule out severe toxic or metabolic encephalopathy, rule out postradiation encephalopathy, and rule out paraneoplastic syndrome. 2. Hypothyroidism. 3. Right thigh necrotizing fasciitis. 4. Acute renal insufficiency. RECOMMENDATIONS: 1. Get an MRI of the brain. 2. EEG as soon as possible. If ongoing seizure event noted, the patient will need use of anticonvulsants. 3. May need to follow with a spinal tap to rule out meningeal carcinomatosis, need metabolic correction and renal workup. 4. We will discuss the patient's status with medical staff. Thank you for allowing me to see this interesting patient in neurological consultation. Tesfaye Myranda Mchugh DR: HELGA JOB#: [id number] CC:
--- NOTE | 2017-08-18 22:30 | Consultation ---
DATE OF CONSULTATION: 08/18/2017 HEMATOLOGY/ONCOLOGY CONSULTATION CONSULTING PHYSICIAN: Nader Brumfield M.D. REQUESTING PHYSICIAN: Sherif Dailey D.O. REASON FOR CONSULTATION: Evaluation of anemia. IDENTIFYING DATA: Dear Sherif Dailey, This is a pleasant 62-year-old male with a past medical history significant for right facial lymphoma, most recently on chemotherapy, completed back in October in this year, status post radiation, 35 treatments of radiation at [facility] Oncology with necrotizing fasciitis with a wound VAC for the last four weeks, presents to the care home with altered mental status. Hematology Service was consulted for further evaluation and treatment. Daughter is at the bedside. The patient is normally awake and alert. He was walking prior to this episode where he became tonic where his right neck pointed to his right and he is minimally responsive at this time. Hematology Service was again consulted given history of lymphoma. PAST MEDICAL HISTORY: 1. lymphoma, on chemotherapy in the past. 2. Necrotizing fasciitis. 3. Altered mental status. SURGICAL HISTORY: None noted. ALLERGIES: No known drug allergies. FAMILY HISTORY: Noncontributory. REVIEW OF SYSTEMS: Difficult to obtain given his mental status. PHYSICAL EXAMINATION: VITAL SIGNS: Reviewed. GENERAL: In no acute distress. PULMONARY: Decreased breath sounds. CARDIOVASCULAR: Regular rate. No S3 or S4. ABDOMEN: Soft, nontender, and nondistended. EXTREMITIES: 1+ edema. NECK: Pointed to the right and the patient is minimally responsive. NEUROLOGIC: Minimally responsive. LABORATORY DATA: hemoglobin 9.7, hematocrit 28, and platelet count 224,000. BUN of 92 and creatinine 5.7. Total protein is 3.3. AST 30 and ALT 45. ASSESSMENT AND RECOMMENDATIONS: 1. Facial lymphoma, status post chemotherapy with radiation. Currently cancer is in remission. Repeat CT of the head no evidence of malignancy. Moderate atrophy is noted. 2. Anemia secondary to chronic disease. Anemia workup has been ordered. 3. Anemia secondary to kidney disease. Creatinine of 5.7. Hematology Service evaluation. 4. Altered mental status, potentially secondary to multifactorial process. Need to rule out stroke in addition to seizure disorder. Neurology service is evaluating the patient. 5. Necrotizing fasciitis, status post wound VAC and surgery, completed 2 weeks ago. 6. It also should be noted the patient has completed chemotherapy. Nader Brumfield M.D. DR: MIKEY JOB#: [id number] CC:
[2017-08-19] VITALS (25 sets, daily range): BP systolic 97–152; BP diastolic 39–102
--- NOTE | 2017-08-19 | Consultation ---
DATE OF CONSULTATION: 08/18/2017 CARDIOLOGY CONSULTATION CONSULTING PHYSICIAN: Bright Alexandra M.D. REFERRING PHYSICIAN: Sherif Dailey D.O. REASON FOR CONSULTATION: Altered mental status. HISTORY OF PRESENT ILLNESS: The patient is a 62-year-old gentleman with history of right facial lymphoma, who is on chemotherapy as well as necrotizing fasciitis of the legs. The patient also had a surgery at an outside hospital two weeks ago, was brought from [facility] for altered mental status. The patient is unable to provide any information. Apparently per the patient's daughter, the patient has normal mental status. He is usually oriented x3 and he walked prior to his necrotizing fasciitis. The patient was admitted to intensive care unit and cardiology consultation was obtained for further evaluation and management. The patient also was found to be in acute renal failure with metabolic acidosis. REVIEW OF SYSTEMS: Cannot be obtained. PAST MEDICAL HISTORY: As mentioned above. FAMILY HISTORY: Noncontributory. SOCIAL HISTORY: He lives in a [facility]. Does not smoke or drink alcohol. PHYSICAL EXAMINATION: VITAL SIGNS: Blood pressure is 112/46, pulse 61, respirations 14, and temperature 98.4. HEAD AND NECK: Showed no JVD. LUNGS: Clear. CARDIOVASCULAR: Regular. S1 and S2 with no gallop, however, he has since prior surgery and his chest has a right-sided port. ABDOMEN: Soft. EXTREMITIES: No edema. LABORATORY DATA: White count 5.9, hemoglobin 9.2, hematocrit 28.3, and platelet count of 224,000. Sodium potassium 4.1, BUN of 92, creatinine 5.7, and glucose of 75. Troponin is negative. DIAGNOSTIC DATA: His EKG showed sinus rhythm, left anterior fascicular block, and primary T-wave abnormality. ASSESSMENT AND PLAN: 1. Abnormal electrocardiogram with primary T-wave abnormality. We will completely rule out with myocardial infarction protocol. The first troponin is negative. We will get an echocardiogram to evaluate for ejection fraction and wall motion abnormality. 2. Metabolic acidosis with carbon dioxide of only 7. 3. BNP of more than 5000. Again, echocardiogram is pending. It could be secondary to persistent renal failure with BUN of 92 and creatinine 5.7. 4. Renal failure. Further evaluation by Dr. Noble. 5. Hypernatremia. 6. Altered mental status. Neurology evaluation is also pending. The patient's head CT showed no acute intracranial bleed, mass effect, or edema. Thank you very much, Dr. Dailey, for allowing me to participate in the care of this patient. Please do not hesitate to contact me for any questions regarding my evaluation. Bright Alexandra M.D. DR: Derek JOB#: [id number] CC:
[2017-08-19] MEDS: Piperacillin/Tazobactam 2.25 GM in D5W 55 ML IVPB SCH ×3 (00:58→17:33)
[2017-08-19 03:41] LABS: MEAN CORPUSCULAR HEMOGLOBIN 33.1 PG (27.0-31.0); MEAN CORPUSCULAR HGB CONC 34.4 G/DL (32.0-36.0); MEAN CORPUSCULAR VOLUME 96 FL (80-99); MEAN PLATELET VOLUME 4.8 FL (6.5-10.1); PLATELET COUNT 185 K/UL (150-450); RED BLOOD COUNT 2.27 M/UL (4.70-6.10); RED CELL DISTRIBUTION WIDTH 17.9 % (11.6-14.8); WHITE BLOOD COUNT 4.7 K/UL (4.8-10.8)
[2017-08-19 04:25] LABS: HEMOGLOBIN A1C 5.9 % (4.3-6.0)
[2017-08-19 04:27] LABS: CRP QUANT 2.1 mg/dL (0.00-0.90); MAGNESIUM 2.2 MG/DL (1.8-2.4); PHOSPHORUS 3.1 MG/DL (2.5-4.9); URIC ACID 7.8 MG/DL (2.6-7.2)
[2017-08-19 05:26] LABS: ALANINE AMINOTRANSFERASE 45 U/L (12-78); ALBUMIN/GLOBULIN RATIO 0.4 (1.0-2.7); ANION GAP 12 mmol/L (5-15); ASPARTATE AMINO TRANSFERASE 54 U/L (15-37); CALCIUM 8.3 MG/DL (8.5-10.1); CARBON DIOXIDE 22 MMOL/L (21-32); CHLORIDE 111 MMOL/L (98-107); CHOLESTEROL 102 MG/DL (< 200); CHOLESTEROL/HDL RATIO 5.7 (3.3-4.4); CREATININE 6.8 MG/DL (0.55-1.30); FERRITIN > 2000 NG/ML (8-388); GLOMERULAR FILTRATION RATE 8.3 mL/min (>60); POTASSIUM 3.3 MMOL/L (3.5-5.1); SODIUM 144 MMOL/L (136-145); TOTAL PROTEIN 5.7 G/DL (6.4-8.2)
[2017-08-19 06:28] LABS: FOLIC ACID 15.1 NG/ML (8.6-58.9)
--- NOTE | 2017-08-19 07:52 | Infectious Diseases Prog Note ---
Assessment/Plan Assessment/Plan A: Recent necrotizing fascitis of R hip ? Mastoiditis Acute renal failure CKD History of facial lymphoma Anemia P: Continue Vancomycin & Zosyn Will f/u cultures Subjective ROS Limited/Unobtainable: Yes Genitourinary: Reports: other - anuric Neurologic: Reports: other - more alert Allergies: Coded Allergies: No Known Allergies (Unverified , 08/17/17) Objective Vital Signs Last 24 Hour Vital Signs Date Time Temp Pulse Resp B/P (MAP) Pulse Ox O2 Delivery O2 Flow Rate FiO2 08/19/17 07:00 74 21 152/70 99 Room Air 08/19/17 06:00 62 17 119/60 100 Room Air 08/19/17 05:00 60 17 141/81 100 Room Air 08/19/17 04:00 97.8 72 21 119/55 100 Room Air 08/19/17 04:00 63 08/19/17 03:00 56 16 114/55 97 Room Air 08/19/17 02:00 56 24 137/73 97 Room Air 08/19/17 01:00 82 24 136/62 100 Room Air 08/19/17 00:00 98.3 74 21 97/50 100 Room Air 08/19/17 00:00 58 08/18/17 23:00 58 14 118/54 100 Room Air 08/18/17 22:00 59 13 115/47 100 Room Air 08/18/17 21:00 60 13 115/47 100 Room Air 08/18/17 20:00 62 08/18/17 20:00 98.3 62 13 108/51 100 Room Air 08/18/17 19:00 63 14 132/114 100 Room Air 08/18/17 18:00 57 14 138/115 100 Room Air 08/18/17 17:00 57 12 118/98 100 Room Air 08/18/17 16:00 98.4 61 16 135/114 100 Room Air 08/18/17 16:00 63 08/18/17 15:00 63 16 125/107 100 Room Air 08/18/17 14:00 61 14 125/46 100 Room Air 08/18/17 13:00 74 14 130/52 100 Room Air 08/18/17 12:00 98.4 70 16 123/56 100 Room Air 08/18/17 12:00 73 08/18/17 11:00 70 14 128/102 98 Room Air 08/18/17 10:00 72 15 128/69 100 Room Air 08/18/17 09:00 70 12 124/77 100 Room Air 08/18/17 08:00 98.5 66 16 124/61 100 Room Air 08/18/17 08:00 64 Height (Feet): 5 Height (Inches): 7.00 Weight (Pounds): 104 General Appearance: no acute distress HEENT: other - facial deformity in right side Respiratory/Chest: lungs clear, other - O2 by nasal cannula Cardiovascular: normal rate, other - Portocath Abdomen: soft, non tender, other - NG tube in place Extremities: no edema Skin: ulcers, other - wound -vac in right hip Neurologic/Psychiatric: other - poorly responsive Microbiology Date/Time Source Procedure Growth Status 08/17/17 18:32 Blood Blood Culture - Preliminary NO GROWTH AFTER 24 HOURS Resulted 08/17/17 18:32 Blood Blood Culture - Preliminary NO GROWTH AFTER 24 HOURS Resulted 08/18/17 18:00 Urine,Clean Catch Urine Culture - Preliminary NO GROWTH Resulted Laboratory Tests Test 08/18/17 17:22 08/18/17 18:00 08/19/17 03:05 Fibrinogen 230 mg/dL (200-400) Urine Color Yellow Urine Appearance Slightly cloudy Urine pH 5 (4.5-8.0) Urine Specific [place] 1.015 (1.005-1.035) Urine Protein 3+ (NEGATIVE) H Urine Glucose (UA) Negative (NEGATIVE) Urine Ketones 3+ (NEGATIVE) H Urine Occult Blood 4+ (NEGATIVE) H Urine Nitrite Negative (NEGATIVE) Urine Bilirubin Negative (NEGATIVE) Urine Urobilinogen Normal MG/DL (0.0-1.0) Urine Leukocyte Esterase 1+ (NEGATIVE) H Urine RBC 0-2 /HPF (0 - 0) H Urine WBC 0-2 /HPF (0 - 0) Urine Squamous Epithelial Cells None /LPF (NONE/OCC) Urine Amorphous Sediment Many /LPF (NONE) H Urine Bacteria Moderate /HPF (NONE) H Urine Random Sodium < 10 MEQ/L (20-110) L White Blood Count 4.7 K/UL (4.8-10.8) L Red Blood Count 2.27 M/UL (4.70-6.10) L Hemoglobin 7.5 G/DL (14.2-18.0) L Hematocrit 21.9 % (42.0-52.0) L Mean Corpuscular Volume 96 FL (80-99) Mean Corpuscular Hemoglobin 33.1 PG (27.0-31.0) H Mean Corpuscular Hemoglobin Concent 34.4 G/DL (32.0-36.0) Red Cell Distribution Width 17.9 % (11.6-14.8) H Platelet Count 185 K/UL (150-450) Mean Platelet Volume 4.8 FL (6.5-10.1) L Neutrophils (%) (Auto) % (45.0-75.0) Lymphocytes (%) (Auto) % (20.0-45.0) Monocytes (%) (Auto) % (1.0-10.0) Eosinophils (%) (Auto) % (0.0-3.0) Basophils (%) (Auto) % (0.0-2.0) Sodium Level 144 MMOL/L (136-145) Potassium Level 3.3 MMOL/L (3.5-5.1) L Chloride Level 111 MMOL/L (98-107) H Carbon Dioxide Level 22 MMOL/L (21-32) Anion Gap 12 mmol/L (5-15) Blood Urea Nitrogen 92 mg/dL (7-18) H Creatinine 6.8 MG/DL (0.55-1.30) H Estimat Glomerular Filtration Rate 8.3 mL/min (>60) Glucose Level 120 MG/DL (74-106) H Hemoglobin A1c 5.9 % (4.3-6.0) Uric Acid 7.8 MG/DL (2.6-7.2) H Calcium Level 8.3 MG/DL (8.5-10.1) L Phosphorus Level 3.1 MG/DL (2.5-4.9) Magnesium Level 2.2 MG/DL (1.8-2.4) Ferritin > 2000 NG/ML (8-388) H Total Bilirubin 0.2 MG/DL (0.2-1.0) Gamma Glutamyl Transpeptidase 35 U/L (5-85) Aspartate Amino Transf (AST/SGOT) 54 U/L (15-37) H Alanine Aminotransferase (ALT/SGPT) 45 U/L (12-78) Alkaline Phosphatase 67 U/L (46-116) Total Creatine Kinase 63 U/L (26-308) Troponin I 0.073 ng/mL (0.000-0.056) C-Reactive Protein, Quantitative 2.1 mg/dL (0.00-0.90) H Pro-B-Type Natriuretic Peptide 6473 pg/mL (0-125) H Total Protein 5.7 G/DL (6.4-8.2) L Albumin 1.6 G/DL (3.4-5.0) L Globulin 4.1 g/dL Albumin/Globulin Ratio 0.4 (1.0-2.7) L Triglycerides Level 116 MG/DL (30-150) Cholesterol Level 102 MG/DL (< 200) LDL Cholesterol 58 mg/dL (<100) HDL Cholesterol 18 MG/DL (40-60) L Cholesterol/HDL Ratio 5.7 (3.3-4.4) H Vitamin B12 Level 1185 PG/ML (193-986) H Folate 15.1 NG/ML (8.6-58.9) Random Vancomycin Level 24.3 ug/mL Hepatitis B Surface Antibody Pending Hepatitis C Antibody Pending HIV (1&2) Antibody Rapid Negative (NEGATIVE) Current Medications Medications (Trade) Dose Ordered Sig/Srini Route PRN Reason Start Time Stop Time Status Last Admin Dose Admin Acetaminophen (Tylenol) 650 mg Q4H PRN ORAL fever 08/17/17 23:00 09/16/17 22:59 Chlorhexidine Gluconate (Sandra-Hex 2%) 1 applic DAILY@2000 TOPIC 08/18/17 20:00 09/17/17 19:59 08/18/17 20:48 Clonidine HCl (Catapres) 0.1 mg Q4H PRN ORAL For High Blood Pressure 08/17/17 23:00 09/16/17 22:59 Dextrose (Dextrose 50%) STAT PRN IV Hypoglycemia 08/17/17 23:00 09/16/17 22:59 Heparin Sodium (Porcine) (Heparin 5000 units/ml) 5,000 units EVERY 12 HOURS SUBQ 08/18/17 09:00 09/17/17 08:59 08/18/17 20:51 Levothyroxine Sodium (Synthroid) 50 mcg ACBREAKFAST ORAL 08/18/17 06:30 09/17/17 06:29 08/19/17 06:02 Lorazepam (Ativan 2mg/ml 1ml) 0.5 mg Q4H PRN IV For Anxiety 08/17/17 23:00 08/24/17 22:59 Lorazepam (Ativan 2mg/ml 1ml) 1 mg Q4H PRN IV seizure 08/18/17 15:00 08/25/17 14:59 Morphine Sulfate (Morphine Sulfate) 1 mg Q4H PRN IVP For Pain 08/17/17 23:00 08/24/17 22:59 Ondansetron HCl (Zofran) 4 mg Q6H PRN IVP Nausea & Vomiting 08/17/17 23:00 09/16/17 22:59 Piperacillin Sod/ Tazobactam Sod 2.25 gm/Dextrose 55 ml @ 110 mls/hr Q8H IVPB 08/18/17 09:00 08/25/17 08:59 08/19/17 00:58 Polyethylene Glycol (Miralax) 17 gm HSPRN PRN ORAL Constipation 08/17/17 23:00 09/16/17 22:59 Sodium Bicarbonate 50 ml/ Dextrose 1,050 ml @ 100 mls/hr [id number] IV 08/18/17 11:00 09/17/17 10:59 08/18/17 23:01 Vancomycin HCl (Vanco rx to dose) 1 ea DAILYPRN PRN MISC Per rx protocol 08/18/17 07:45 09/17/17 07:44 Zolpidem Tartrate (Ambien) 5 mg HSPRN PRN ORAL Insomnia 08/17/17 23:00 08/24/17 22:59 TOYA ENGLISH Aug 19, 2017 07:52
[2017-08-19] MEDS: Sodium Bicarbonate 50 ML in D5W 1000ml 1,000 ML IV SCH (08:19)
[2017-08-19] MEDS: Heparin 5000 units/ml inj SUBQ SCH ×2 (08:19→20:37)
--- NOTE | 2017-08-19 10:39 | Nephrology Progress Note ---
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) R left thigh necrotizing fasciitis ( with wound vac) severe protein calorie malnutrition elevated TSH hx of smoking Plan Plan: Bladder scan, empty Urine studies kidney DANI pending 2D Echo- pending Avoid nephrotoxics- Neuro eval dialysis cath for dialysis transfusion [facility] now IV protonix Objective Objective Last 24 Hour Vital Signs Date Time Temp Pulse Resp B/P (MAP) Pulse Ox O2 Delivery O2 Flow Rate FiO2 08/19/17 10:00 61 21 106/55 100 Room Air 08/19/17 09:00 73 21 112/65 98 Room Air 08/19/17 08:00 70 08/19/17 08:00 97.6 67 22 128/59 96 Room Air 08/19/17 07:00 74 21 152/70 99 Room Air 08/19/17 06:00 62 17 119/60 100 Room Air 08/19/17 05:00 60 17 141/81 100 Room Air 08/19/17 04:00 97.8 72 21 119/55 100 Room Air 08/19/17 04:00 63 08/19/17 03:00 56 16 114/55 97 Room Air 08/19/17 02:00 56 24 137/73 97 Room Air 08/19/17 01:00 82 24 136/62 100 Room Air 08/19/17 00:00 98.3 74 21 97/50 100 Room Air 08/19/17 00:00 58 08/18/17 23:00 58 14 118/54 100 Room Air 08/18/17 22:00 59 13 115/47 100 Room Air 08/18/17 21:00 60 13 115/47 100 Room Air 08/18/17 20:00 62 08/18/17 20:00 98.3 62 13 108/51 100 Room Air 08/18/17 19:00 63 14 132/114 100 Room Air 08/18/17 18:00 57 14 138/115 100 Room Air 08/18/17 17:00 57 12 118/98 100 Room Air 08/18/17 16:00 98.4 61 16 135/114 100 Room Air 08/18/17 16:00 63 08/18/17 15:00 63 16 125/107 100 Room Air 08/18/17 14:00 61 14 125/46 100 Room Air 08/18/17 13:00 74 14 130/52 100 Room Air 08/18/17 12:00 98.4 70 16 123/56 100 Room Air 08/18/17 12:00 73 08/18/17 11:00 70 14 128/102 98 Room Air Intake and Output 08/19/17 08/20/17 19:00 07:00 Intake Total 255 ml Output Total 25 ml Balance 230 ml IV Total 255 ml Output Urine Total 25 ml Laboratory Tests 08/18/17 17:22: Fibrinogen 230 08/18/17 18:00: Urine Color Yellow, Urine Appearance Slightly cloudy, Urine pH 5, Urine Specific [place] 1.015, Urine Protein 3+H, Urine Glucose (UA) Negative, Urine Ketones 3+H, Urine Occult Blood 4+H, Urine Nitrite Negative, Urine Bilirubin Negative, Urine Urobilinogen Normal, Urine Leukocyte Esterase 1+H, Urine RBC 0- 2H, Urine WBC 0-2, Urine Squamous Epithelial Cells None, Urine Amorphous Sediment ManyH, Urine Bacteria ModerateH, Urine Random Sodium < 10L 08/19/17 03:05: White Blood Count 4.7L, Red Blood Count 2.27L, Hemoglobin 7.5L, Hematocrit 21.9L , Mean Corpuscular Volume 96, Mean Corpuscular Hemoglobin 33.1H, Mean Corpuscular Hemoglobin Concent 34.4, Red Cell Distribution Width 17.9H, Platelet Count 185, Mean Platelet Volume 4.8L, Neutrophils (%) (Auto) , Lymphocytes (%) (Auto) , Monocytes (%) (Auto) , Eosinophils (%) (Auto) , Basophils (%) (Auto) , Sodium Level 144, Potassium Level 3.3L, Chloride Level 111H, Carbon Dioxide Level 22, Anion Gap 12, Blood Urea Nitrogen 92H, Creatinine 6.8H, Estimat Glomerular Filtration Rate 8.3, Glucose Level 120H, Hemoglobin A1c 5.9, Uric Acid 7.8H, Calcium Level 8.3L, Phosphorus Level 3.1, Magnesium Level 2.2, Ferritin > 2000H, Total Bilirubin 0.2, Gamma Glutamyl Transpeptidase 35, Aspartate Amino Transf (AST/SGOT) 54H, Alanine Aminotransferase (ALT/SGPT) 45, Alkaline Phosphatase 67, Total Creatine Kinase 63, Troponin I 0.073H, C-Reactive Protein, Quantitative 2.1H, Pro-B-Type Natriuretic Peptide 6473H, Total Protein 5.7L, Albumin 1.6L, Globulin 4.1, Albumin/Globulin Ratio 0.4L, Triglycerides Level 116, Cholesterol Level 102, LDL Cholesterol 58, HDL Cholesterol 18L, Cholesterol/HDL Ratio 5.7H, Vitamin B12 Level 1185H, Folate 15.1, Random Vancomycin Level 24.3, Hepatitis B Surface Antibody [Pending], Hepatitis C Antibody [Pending], HIV (1&2) Antibody Rapid Negative 08/19/17 08:00: Urine Eosinophils None seen Height (Feet): 5 Height (Inches): 7.00 Weight (Pounds): 104 RYAN MCCLOUD Aug 19, 2017 10:39
[2017-08-19] MEDS ORDERED: Pantoprazole Inj IVP SCH (10:45)
--- NOTE | 2017-08-19 11:29 | Pulmonolgy Critical Care Note ---
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 - Objective Last 24 Hour Vital Signs Date Time Temp Pulse Resp B/P (MAP) Pulse Ox O2 Delivery O2 Flow Rate FiO2 08/19/17 11:00 69 19 118/60 100 Room Air 08/19/17 10:00 61 21 106/55 100 Room Air 08/19/17 09:00 73 21 112/65 98 Room Air 08/19/17 08:00 70 08/19/17 08:00 97.6 67 22 128/59 96 Room Air 08/19/17 07:00 74 21 152/70 99 Room Air 08/19/17 06:00 62 17 119/60 100 Room Air 08/19/17 05:00 60 17 141/81 100 Room Air 08/19/17 04:00 97.8 72 21 119/55 100 Room Air 08/19/17 04:00 63 08/19/17 03:00 56 16 114/55 97 Room Air 08/19/17 02:00 56 24 137/73 97 Room Air 08/19/17 01:00 82 24 136/62 100 Room Air 08/19/17 00:00 98.3 74 21 97/50 100 Room Air 08/19/17 00:00 58 08/18/17 23:00 58 14 118/54 100 Room Air 08/18/17 22:00 59 13 115/47 100 Room Air 08/18/17 21:00 60 13 115/47 100 Room Air 08/18/17 20:00 62 08/18/17 20:00 98.3 62 13 108/51 100 Room Air 08/18/17 19:00 63 14 132/114 100 Room Air 08/18/17 18:00 57 14 138/115 100 Room Air 08/18/17 17:00 57 12 118/98 100 Room Air 08/18/17 16:00 98.4 61 16 135/114 100 Room Air 08/18/17 16:00 63 08/18/17 15:00 63 16 125/107 100 Room Air 08/18/17 14:00 61 14 125/46 100 Room Air 08/18/17 13:00 74 14 130/52 100 Room Air 08/18/17 12:00 98.4 70 16 123/56 100 Room Air 08/18/17 12:00 73 Status: awake Condition: critical HEENT: atraumatic Neck: full ROM Lungs: clear Heart: HR/BP stable Abdomen: soft, non-tender, feeding tube Micro: Microbiology Date/Time Source Procedure Growth Status 08/17/17 18:32 Blood Blood Culture - Preliminary NO GROWTH AFTER 24 HOURS Resulted 08/17/17 18:32 Blood Blood Culture - Preliminary NO GROWTH AFTER 24 HOURS Resulted 08/18/17 18:00 Urine,Clean Catch Urine Culture - Preliminary NO GROWTH Resulted Critical Care - Subjective ROS Limited/Unobtainable: Yes ICU Day: 3 Condition: critical EKG Rhythm: Sinus Rhythm I&O: Intake and Output 08/19/17 08/20/17 19:00 07:00 Intake Total 255 ml Output Total 25 ml Balance 230 ml IV Total 255 ml Output Urine Total 25 ml CXR: NO CHANGE Labs: Laboratory Tests Test 08/18/17 17:22 08/18/17 18:00 08/19/17 03:05 08/19/17 08:00 Fibrinogen 230 mg/dL (200-400) Urine Color Yellow Urine Appearance Slightly cloudy Urine pH 5 (4.5-8.0) Urine Specific [place] 1.015 (1.005-1.035) Urine Protein 3+ (NEGATIVE) H Urine Glucose (UA) Negative (NEGATIVE) Urine Ketones 3+ (NEGATIVE) H Urine Occult Blood 4+ (NEGATIVE) H Urine Nitrite Negative (NEGATIVE) Urine Bilirubin Negative (NEGATIVE) Urine Urobilinogen Normal MG/DL (0.0-1.0) Urine Leukocyte Esterase 1+ (NEGATIVE) H Urine RBC 0-2 /HPF (0 - 0) H Urine WBC 0-2 /HPF (0 - 0) Urine Squamous Epithelial Cells None /LPF (NONE/OCC) Urine Amorphous Sediment Many /LPF (NONE) H Urine Bacteria Moderate /HPF (NONE) H Urine Random Sodium < 10 MEQ/L (20-110) L White Blood Count 4.7 K/UL (4.8-10.8) L Red Blood Count 2.27 M/UL (4.70-6.10) L Hemoglobin 7.5 G/DL (14.2-18.0) L Hematocrit 21.9 % (42.0-52.0) L Mean Corpuscular Volume 96 FL (80-99) Mean Corpuscular Hemoglobin 33.1 PG (27.0-31.0) H Mean Corpuscular Hemoglobin Concent 34.4 G/DL (32.0-36.0) Red Cell Distribution Width 17.9 % (11.6-14.8) H Platelet Count 185 K/UL (150-450) Mean Platelet Volume 4.8 FL (6.5-10.1) L Neutrophils (%) (Auto) % (45.0-75.0) Lymphocytes (%) (Auto) % (20.0-45.0) Monocytes (%) (Auto) % (1.0-10.0) Eosinophils (%) (Auto) % (0.0-3.0) Basophils (%) (Auto) % (0.0-2.0) Sodium Level 144 MMOL/L (136-145) Potassium Level 3.3 MMOL/L (3.5-5.1) L Chloride Level 111 MMOL/L (98-107) H Carbon Dioxide Level 22 MMOL/L (21-32) Anion Gap 12 mmol/L (5-15) Blood Urea Nitrogen 92 mg/dL (7-18) H Creatinine 6.8 MG/DL (0.55-1.30) H Estimat Glomerular Filtration Rate 8.3 mL/min (>60) Glucose Level 120 MG/DL (74-106) H Hemoglobin A1c 5.9 % (4.3-6.0) Uric Acid 7.8 MG/DL (2.6-7.2) H Calcium Level 8.3 MG/DL (8.5-10.1) L Phosphorus Level 3.1 MG/DL (2.5-4.9) Magnesium Level 2.2 MG/DL (1.8-2.4) Ferritin > 2000 NG/ML (8-388) H Total Bilirubin 0.2 MG/DL (0.2-1.0) Gamma Glutamyl Transpeptidase 35 U/L (5-85) Aspartate Amino Transf (AST/SGOT) 54 U/L (15-37) H Alanine Aminotransferase (ALT/SGPT) 45 U/L (12-78) Alkaline Phosphatase 67 U/L (46-116) Total Creatine Kinase 63 U/L (26-308) Troponin I 0.073 ng/mL (0.000-0.056) C-Reactive Protein, Quantitative 2.1 mg/dL (0.00-0.90) H Pro-B-Type Natriuretic Peptide 6473 pg/mL (0-125) H Total Protein 5.7 G/DL (6.4-8.2) L Albumin 1.6 G/DL (3.4-5.0) L Globulin 4.1 g/dL Albumin/Globulin Ratio 0.4 (1.0-2.7) L Triglycerides Level 116 MG/DL (30-150) Cholesterol Level 102 MG/DL (< 200) LDL Cholesterol 58 mg/dL (<100) HDL Cholesterol 18 MG/DL (40-60) L Cholesterol/HDL Ratio 5.7 (3.3-4.4) H Vitamin B12 Level 1185 PG/ML (193-986) H Folate 15.1 NG/ML (8.6-58.9) Random Vancomycin Level 24.3 ug/mL Hepatitis B Surface Antibody Pending Hepatitis C Antibody Pending HIV (1&2) Antibody Rapid Negative (NEGATIVE) Urine Eosinophils None seen Test 08/19/17 11:00 Prothrombin Time Pending Prothromb Time International Ratio Pending Activated Partial Thromboplast Time Pending MAYRA BAKER Aug 19, 2017 11:29
[2017-08-19 11:50] LABS: PROTHROMBIN TIME 20.9 SEC (9.30-11.50)
--- NOTE | 2017-08-19 11:53 | General Progress Note ---
Progress Note Progress Note Surgery: full consult note to follow. right thigh wound VAC. large wound s/p debridement for necrotizing fascitis. recently admitted for altered mental status and sepsis. called to evaluate wound and wound care recs. VAC removed. large 25 cm x 28cm right hip/thigh lateral wound that is down to muscle. no remaining subcutaneous fat or skin. wound clean with good granulation tissue. no areas of necrosis or active infection. no need for further debridement at this time wound very clean and healing. unlikely source of sepsis continue with wound vac changes q3 days. vac continuous at 100mmHg. Mauricio Mistry Aug 19, 2017 11:53
--- NOTE | 2017-08-19 12:04 | Neurology Progress Note ---
Interim History Interim History ROS Limited/Unobtainable: Yes Complaints: none Events: stable no improvement now on HD Objective Physical Exam Last Vital Signs Date Time Temp Pulse Resp B/P (MAP) Pulse Ox O2 Delivery O2 Flow Rate FiO2 08/19/17 11:00 69 19 118/60 100 Room Air 08/19/17 08:00 97.6 08/17/17 22:30 100.0 Laboratory Tests Test 08/18/17 17:22 08/18/17 18:00 08/19/17 03:05 08/19/17 08:00 Fibrinogen 230 mg/dL (200-400) Urine Color Yellow Urine Appearance Slightly cloudy Urine pH 5 (4.5-8.0) Urine Specific [place] 1.015 (1.005-1.035) Urine Protein 3+ (NEGATIVE) H Urine Glucose (UA) Negative (NEGATIVE) Urine Ketones 3+ (NEGATIVE) H Urine Occult Blood 4+ (NEGATIVE) H Urine Nitrite Negative (NEGATIVE) Urine Bilirubin Negative (NEGATIVE) Urine Urobilinogen Normal MG/DL (0.0-1.0) Urine Leukocyte Esterase 1+ (NEGATIVE) H Urine RBC 0-2 /HPF (0 - 0) H Urine WBC 0-2 /HPF (0 - 0) Urine Squamous Epithelial Cells None /LPF (NONE/OCC) Urine Amorphous Sediment Many /LPF (NONE) H Urine Bacteria Moderate /HPF (NONE) H Urine Random Sodium < 10 MEQ/L (20-110) L White Blood Count 4.7 K/UL (4.8-10.8) L Red Blood Count 2.27 M/UL (4.70-6.10) L Hemoglobin 7.5 G/DL (14.2-18.0) L Hematocrit 21.9 % (42.0-52.0) L Mean Corpuscular Volume 96 FL (80-99) Mean Corpuscular Hemoglobin 33.1 PG (27.0-31.0) H Mean Corpuscular Hemoglobin Concent 34.4 G/DL (32.0-36.0) Red Cell Distribution Width 17.9 % (11.6-14.8) H Platelet Count 185 K/UL (150-450) Mean Platelet Volume 4.8 FL (6.5-10.1) L Neutrophils (%) (Auto) % (45.0-75.0) Lymphocytes (%) (Auto) % (20.0-45.0) Monocytes (%) (Auto) % (1.0-10.0) Eosinophils (%) (Auto) % (0.0-3.0) Basophils (%) (Auto) % (0.0-2.0) Sodium Level 144 MMOL/L (136-145) Potassium Level 3.3 MMOL/L (3.5-5.1) L Chloride Level 111 MMOL/L (98-107) H Carbon Dioxide Level 22 MMOL/L (21-32) Anion Gap 12 mmol/L (5-15) Blood Urea Nitrogen 92 mg/dL (7-18) H Creatinine 6.8 MG/DL (0.55-1.30) H Estimat Glomerular Filtration Rate 8.3 mL/min (>60) Glucose Level 120 MG/DL (74-106) H Hemoglobin A1c 5.9 % (4.3-6.0) Uric Acid 7.8 MG/DL (2.6-7.2) H Calcium Level 8.3 MG/DL (8.5-10.1) L Phosphorus Level 3.1 MG/DL (2.5-4.9) Magnesium Level 2.2 MG/DL (1.8-2.4) Ferritin > 2000 NG/ML (8-388) H Total Bilirubin 0.2 MG/DL (0.2-1.0) Gamma Glutamyl Transpeptidase 35 U/L (5-85) Aspartate Amino Transf (AST/SGOT) 54 U/L (15-37) H Alanine Aminotransferase (ALT/SGPT) 45 U/L (12-78) Alkaline Phosphatase 67 U/L (46-116) Total Creatine Kinase 63 U/L (26-308) Troponin I 0.073 ng/mL (0.000-0.056) C-Reactive Protein, Quantitative 2.1 mg/dL (0.00-0.90) H Pro-B-Type Natriuretic Peptide 6473 pg/mL (0-125) H Total Protein 5.7 G/DL (6.4-8.2) L Albumin 1.6 G/DL (3.4-5.0) L Globulin 4.1 g/dL Albumin/Globulin Ratio 0.4 (1.0-2.7) L Triglycerides Level 116 MG/DL (30-150) Cholesterol Level 102 MG/DL (< 200) LDL Cholesterol 58 mg/dL (<100) HDL Cholesterol 18 MG/DL (40-60) L Cholesterol/HDL Ratio 5.7 (3.3-4.4) H Vitamin B12 Level 1185 PG/ML (193-986) H Folate 15.1 NG/ML (8.6-58.9) Random Vancomycin Level 24.3 ug/mL Hepatitis B Surface Antibody Pending Hepatitis C Antibody Pending HIV (1&2) Antibody Rapid Negative (NEGATIVE) Urine Eosinophils None seen Test 08/19/17 11:00 Prothrombin Time 20.9 SEC (9.30-11.50) H Prothromb Time International Ratio 2.0 (0.9-1.1) H Activated Partial Thromboplast Time 51 SEC (23-33) H General: well developed, no acute distress, other - cochectic Head: normocophalic, atraumatic, other - facial deformity Neurologic Exam Mental Status: awake, other - drowsy arousable not following command Speech: other - nonverbal Language: other Cranial Nerve II: visual pleitez, no papilledema Cranial Nerves III, IV, : PERRLA, EOMI, pupils Cranial Nerve V: normal facial sensations Cranial Nerve VII: other - asymmetry Cranial Nerve VIII: no nystagmus Cranial Nerve IX: other - poor gag Cranial Nerve XI: other Cranial Nerve XII: no tongue atrophy/fasciculations Motor System: no muscle wasting, other - intermittent R or L arm dwitching/ jerking Sensory: other Coordination: other Deep Tendon Reflexes: 0 bicep (L), 0 bicep (R), 0 tricep (L), 0 tricep (R), 0 brachioradialis (L), 0 brachioradialis (R), 0 knee (L), 0 knee (R), 0 ankle (L) , 0 ankle (R) Reflexes: mute plantar (L), mute plantar (R) Impression/Recommendations Problems: (1) new onset of verbal unresponsiveness and generalised myoclonus, r.o seizure activity (2) r/o meningeal carcinomatosis (3) Acute renal failure (4) Metabolic acidosis Status: unchanged Recommendations #[id number] MRI brain [id number] Sorensen Aug 19, 2017 12:04
--- NOTE | 2017-08-19 12:08 | Cardiac Electrophysiology PN ---
Assessment/Plan Assessment/Plan 1. Abnormal electrocardiogram with primary T-wave abnormality.1st trop was negative and second one this am 0.7 mildly elevated due to renal failure and sepsis.Echocardiogram showed Nl EF 2. Metabolic acidosis with carbon dioxide of only 7. 3. BNP of more than 5000. Due to renal failure and volume overload. 4. Renal failure. Tray catheter and HD per Dr. Blakely 5. Hypernatremia. 6. Altered mental status. The head CT showed no acute intracranial bleed, mass effect, or edema. MRI brain pending. LINDSEY RN Subjective Subjective In ICU getting the hip wound VAc changed.Scheduled for Tray and HD today. Objective Last 24 Hour Vital Signs Date Time Temp Pulse Resp B/P (MAP) Pulse Ox O2 Delivery O2 Flow Rate FiO2 08/19/17 11:00 69 19 118/60 100 Room Air 08/19/17 10:00 61 21 106/55 100 Room Air 08/19/17 09:00 73 21 112/65 98 Room Air 08/19/17 08:00 70 08/19/17 08:00 97.6 67 22 128/59 96 Room Air 08/19/17 07:00 74 21 152/70 99 Room Air 08/19/17 06:00 62 17 119/60 100 Room Air 08/19/17 05:00 60 17 141/81 100 Room Air 08/19/17 04:00 97.8 72 21 119/55 100 Room Air 08/19/17 04:00 63 08/19/17 03:00 56 16 114/55 97 Room Air 08/19/17 02:00 56 24 137/73 97 Room Air 08/19/17 01:00 82 24 136/62 100 Room Air 08/19/17 00:00 98.3 74 21 97/50 100 Room Air 08/19/17 00:00 58 08/18/17 23:00 58 14 118/54 100 Room Air 08/18/17 22:00 59 13 115/47 100 Room Air 08/18/17 21:00 60 13 115/47 100 Room Air 08/18/17 20:00 62 08/18/17 20:00 98.3 62 13 108/51 100 Room Air 08/18/17 19:00 63 14 132/114 100 Room Air 08/18/17 18:00 57 14 138/115 100 Room Air 08/18/17 17:00 57 12 118/98 100 Room Air 08/18/17 16:00 98.4 61 16 135/114 100 Room Air 08/18/17 16:00 63 08/18/17 15:00 63 16 125/107 100 Room Air 08/18/17 14:00 61 14 125/46 100 Room Air 08/18/17 13:00 74 14 130/52 100 Room Air 08/18/17 12:00 98.4 70 16 123/56 100 Room Air 08/18/17 12:00 73 Intake and Output 08/19/17 08/20/17 19:00 07:00 Intake Total 255 ml Output Total 25 ml Balance 230 ml IV Total 255 ml Output Urine Total 25 ml Laboratory Tests Test 08/18/17 17:22 08/18/17 18:00 08/19/17 03:05 08/19/17 08:00 Fibrinogen 230 mg/dL (200-400) Urine Color Yellow Urine Appearance Slightly cloudy Urine pH 5 (4.5-8.0) Urine Specific [place] 1.015 (1.005-1.035) Urine Protein 3+ (NEGATIVE) H Urine Glucose (UA) Negative (NEGATIVE) Urine Ketones 3+ (NEGATIVE) H Urine Occult Blood 4+ (NEGATIVE) H Urine Nitrite Negative (NEGATIVE) Urine Bilirubin Negative (NEGATIVE) Urine Urobilinogen Normal MG/DL (0.0-1.0) Urine Leukocyte Esterase 1+ (NEGATIVE) H Urine RBC 0-2 /HPF (0 - 0) H Urine WBC 0-2 /HPF (0 - 0) Urine Squamous Epithelial Cells None /LPF (NONE/OCC) Urine Amorphous Sediment Many /LPF (NONE) H Urine Bacteria Moderate /HPF (NONE) H Urine Random Sodium < 10 MEQ/L (20-110) L White Blood Count 4.7 K/UL (4.8-10.8) L Red Blood Count 2.27 M/UL (4.70-6.10) L Hemoglobin 7.5 G/DL (14.2-18.0) L Hematocrit 21.9 % (42.0-52.0) L Mean Corpuscular Volume 96 FL (80-99) Mean Corpuscular Hemoglobin 33.1 PG (27.0-31.0) H Mean Corpuscular Hemoglobin Concent 34.4 G/DL (32.0-36.0) Red Cell Distribution Width 17.9 % (11.6-14.8) H Platelet Count 185 K/UL (150-450) Mean Platelet Volume 4.8 FL (6.5-10.1) L Neutrophils (%) (Auto) % (45.0-75.0) Lymphocytes (%) (Auto) % (20.0-45.0) Monocytes (%) (Auto) % (1.0-10.0) Eosinophils (%) (Auto) % (0.0-3.0) Basophils (%) (Auto) % (0.0-2.0) Sodium Level 144 MMOL/L (136-145) Potassium Level 3.3 MMOL/L (3.5-5.1) L Chloride Level 111 MMOL/L (98-107) H Carbon Dioxide Level 22 MMOL/L (21-32) Anion Gap 12 mmol/L (5-15) Blood Urea Nitrogen 92 mg/dL (7-18) H Creatinine 6.8 MG/DL (0.55-1.30) H Estimat Glomerular Filtration Rate 8.3 mL/min (>60) Glucose Level 120 MG/DL (74-106) H Hemoglobin A1c 5.9 % (4.3-6.0) Uric Acid 7.8 MG/DL (2.6-7.2) H Calcium Level 8.3 MG/DL (8.5-10.1) L Phosphorus Level 3.1 MG/DL (2.5-4.9) Magnesium Level 2.2 MG/DL (1.8-2.4) Ferritin > 2000 NG/ML (8-388) H Total Bilirubin 0.2 MG/DL (0.2-1.0) Gamma Glutamyl Transpeptidase 35 U/L (5-85) Aspartate Amino Transf (AST/SGOT) 54 U/L (15-37) H Alanine Aminotransferase (ALT/SGPT) 45 U/L (12-78) Alkaline Phosphatase 67 U/L (46-116) Total Creatine Kinase 63 U/L (26-308) Troponin I 0.073 ng/mL (0.000-0.056) C-Reactive Protein, Quantitative 2.1 mg/dL (0.00-0.90) H Pro-B-Type Natriuretic Peptide 6473 pg/mL (0-125) H Total Protein 5.7 G/DL (6.4-8.2) L Albumin 1.6 G/DL (3.4-5.0) L Globulin 4.1 g/dL Albumin/Globulin Ratio 0.4 (1.0-2.7) L Triglycerides Level 116 MG/DL (30-150) Cholesterol Level 102 MG/DL (< 200) LDL Cholesterol 58 mg/dL (<100) HDL Cholesterol 18 MG/DL (40-60) L Cholesterol/HDL Ratio 5.7 (3.3-4.4) H Vitamin B12 Level 1185 PG/ML (193-986) H Folate 15.1 NG/ML (8.6-58.9) Random Vancomycin Level 24.3 ug/mL Hepatitis B Surface Antibody Pending Hepatitis C Antibody Pending HIV (1&2) Antibody Rapid Negative (NEGATIVE) Urine Eosinophils None seen Test 08/19/17 11:00 Prothrombin Time 20.9 SEC (9.30-11.50) H Prothromb Time International Ratio 2.0 (0.9-1.1) H Activated Partial Thromboplast Time 51 SEC (23-33) H Microbiology Date/Time Source Procedure Growth Status 08/17/17 18:32 Blood Blood Culture - Preliminary NO GROWTH AFTER 24 HOURS Resulted 08/17/17 18:32 Blood Blood Culture - Preliminary NO GROWTH AFTER 24 HOURS Resulted 08/18/17 18:00 Urine,Clean Catch Urine Culture - Preliminary NO GROWTH Resulted Objective HEAD AND NECK: Showed no JVD. LUNGS: Clear. CARDIOVASCULAR: Regular. S1 and S2 with no gallop, his chest has a right- sided port. ABDOMEN: Soft. EXTREMITIES: No edema. NICOLÁS PARKINSON Aug 19, 2017 12:08
--- NOTE | 2017-08-19 12:22 | GI Initial Consult Note ---
History of Present Illness General Date patient seen: Aug 19, 2017 Time patient seen: 12:19 Reason for Hospitalization: Altered Level of Consciousness Referring physician: ROBERT BANERJEE Reason for Consultation: GI BLEED Present Illness HPI 62-year-old male, history of right facial lymphoma, was on chemotherapy, rate legs necrotizing fasciitis with a wound VAC, surgery done at outside hospital 2 weeks ago, coming from long-term for altered mental status. Patient is currently not providing any history, history is obtained by [id number]. Daughter lives states that his normal mental status is awake alert oriented x3, he walked prior to the necrotizing fasciitis. States the last seen normal was yesterday. States that long-term states that he is not talking or eating. Denies any known trauma GI consulted for UGIB. HPI as noted above. ROS limited, pt seen in ICU. Reported per RN patient had coffee ground emesis with 2 point drop in Hgb. Labs show elevated creatinine and troponin levels. Unknown history of endoscopic / colonoscopies. Home Meds Reported Medications Zolpidem Tartrate* (AMBIEN*) 5 Mg Tablet, 10 MG ORAL BEDTIME Y for Insomnia, TAB 08/17/17 Zinc Gluconate (ZINC) 30 Mg Tablet, 220 MG ORAL, TAB 08/17/17 Tuberculin Ppd (Tubersol) 5 Tub Unit/0.1 Ml Vial, 0.1 ML IDERMAL, VIAL 08/17/17 Levothyroxine Sodium (Synthroid) 50 Mcg Tablet, 50 MCG ORAL DAILY, TAB Take in the morning on an empty stomach, at least 30 minutes beforefood. 08/17/17 Sennosides/Docusate Sodium (SENNA LAXATIVE TABLET) 1 Each Tablet, 1 EACH PO, TAB 08/17/17 Oxycodone Hcl/Acetaminophen 5-325* (OXYCODONE-ACETAMINOPHEN 5-325*) 1 Each Tablet, 1 TAB ORAL Q6H Y for For Pain, #30 TAB 0 Refills 08/17/17 Multivitamin With Minerals (MULTIVITAMINS WITH MINERALS*) 1 Each Tablet, 1 TAB ORAL DAILY, TAB 08/17/17 Morphine Sulfate* (MS CONTIN*) 30 Mg Tablet.er, 30 MG ORAL EVERY 12 HOURS, #30 TAB 0 Refills 08/17/17 [maalox plus susp] No Conflict Check, 30 ML 08/17/17 Lactobacillus Acidophilus/Pect (Acidophilus-Pectin Capsule) 1 Each Capsule, 1 EACH PO, CAP 08/17/17 Ipratropium [place] 0.5MG/2.5ML (IPRATROPIUM BROMIDE 0.5MG/2.5ML) 0.2 Mg/1 Ml Solution, 0.5 MG HHN Q6H Y for Shortness of Breath, #28 EA 08/17/17 Polyethylene Glycol 3350 (POLYETHYLENE GLYCOL 3350) 1 Gm Granules, 17 GM MC, GM 08/17/17 Famotidine (FAMOTIDINE) 20 Mg Tablet, 20 MG ORAL TWICE A DAY, #60 TAB 0 Refills 08/17/17 [erythomycin ointment] No Conflict Check, 5 MG 08/17/17 Cholecalciferol (Vitamin D3)* (VITAMIN D*) 1,000 Unit Tablet, 1000 UNIT ORAL DAILY, #30 TAB 08/17/17 Cephalexin (CEPHALEXIN) 750 Mg Capsule, 500 MG ORAL FOUR TIMES A DAY, CAP 08/17/17 Cefepime Hcl/D5w (CEFEPIME-DEXTROSE 2 GM/50 ML) 2 Gm/50 Ml Piggyback, 2 GM IVPB EVERY 12 HOURS, BAG 08/17/17 Trimethoprim/Sulfamethoxazole (Bactrim Ds Tablet) 1 Each Tablet, 1 TAB ORAL TWICE A DAY, TAB 08/17/17 Testosterone (ANDRODERM) 1 Each Patch.td24, 1 EACH TD, PATCH 08/17/17 Albuterol Sulfate* (ALBUTEROL SULFATE HHN*) 2.5 Mg/3 Ml Vial.neb, 3 ML INH Q4H Y for Shortness of Breath, EA 08/17/17 Acetaminophen* (ACETAMINOPHEN 325MG TABLET*) 325 Mg Tablet, 650 MG ORAL Q4H Y for For Pain, TAB 08/17/17 Allergies: Coded Allergies: No Known Allergies (Unverified , 08/17/17) Patient History Limited by: medical condition History Provided By: Medical Record PMH Narrative Past Medical History: see triage record Past Surgical History: none Pertinent Family History: none Reviewed Nursing Documentation: PMH: Agreed, PSxH: Agreed Nursing Documentation-PMH Hx Cancer: Yes - lymphoma Past Surgical History: cholecystectomy Review of Systems All Other Systems: limited Physical Exam Vital Signs Date Time Temp Pulse Resp B/P (MAP) Pulse Ox O2 Delivery O2 Flow Rate FiO2 08/17/17 17:18 72 17 126/82 100 Room Air 08/17/17 18:44 97.4 08/17/17 22:30 100.0 Sp02 EP Interpretation: reviewed, normal Labs Laboratory Tests Test 08/18/17 17:22 08/18/17 18:00 08/19/17 03:05 08/19/17 08:00 Fibrinogen 230 mg/dL (200-400) Urine Color Yellow Urine Appearance Slightly cloudy Urine pH 5 (4.5-8.0) Urine Specific [place] 1.015 (1.005-1.035) Urine Protein 3+ (NEGATIVE) H Urine Glucose (UA) Negative (NEGATIVE) Urine Ketones 3+ (NEGATIVE) H Urine Occult Blood 4+ (NEGATIVE) H Urine Nitrite Negative (NEGATIVE) Urine Bilirubin Negative (NEGATIVE) Urine Urobilinogen Normal MG/DL (0.0-1.0) Urine Leukocyte Esterase 1+ (NEGATIVE) H Urine RBC 0-2 /HPF (0 - 0) H Urine WBC 0-2 /HPF (0 - 0) Urine Squamous Epithelial Cells None /LPF (NONE/OCC) Urine Amorphous Sediment Many /LPF (NONE) H Urine Bacteria Moderate /HPF (NONE) H Urine Random Sodium < 10 MEQ/L (20-110) L White Blood Count 4.7 K/UL (4.8-10.8) L Red Blood Count 2.27 M/UL (4.70-6.10) L Hemoglobin 7.5 G/DL (14.2-18.0) L Hematocrit 21.9 % (42.0-52.0) L Mean Corpuscular Volume 96 FL (80-99) Mean Corpuscular Hemoglobin 33.1 PG (27.0-31.0) H Mean Corpuscular Hemoglobin Concent 34.4 G/DL (32.0-36.0) Red Cell Distribution Width 17.9 % (11.6-14.8) H Platelet Count 185 K/UL (150-450) Mean Platelet Volume 4.8 FL (6.5-10.1) L Neutrophils (%) (Auto) % (45.0-75.0) Lymphocytes (%) (Auto) % (20.0-45.0) Monocytes (%) (Auto) % (1.0-10.0) Eosinophils (%) (Auto) % (0.0-3.0) Basophils (%) (Auto) % (0.0-2.0) Sodium Level 144 MMOL/L (136-145) Potassium Level 3.3 MMOL/L (3.5-5.1) L Chloride Level 111 MMOL/L (98-107) H Carbon Dioxide Level 22 MMOL/L (21-32) Anion Gap 12 mmol/L (5-15) Blood Urea Nitrogen 92 mg/dL (7-18) H Creatinine 6.8 MG/DL (0.55-1.30) H Estimat Glomerular Filtration Rate 8.3 mL/min (>60) Glucose Level 120 MG/DL (74-106) H Hemoglobin A1c 5.9 % (4.3-6.0) Uric Acid 7.8 MG/DL (2.6-7.2) H Calcium Level 8.3 MG/DL (8.5-10.1) L Phosphorus Level 3.1 MG/DL (2.5-4.9) Magnesium Level 2.2 MG/DL (1.8-2.4) Ferritin > 2000 NG/ML (8-388) H Total Bilirubin 0.2 MG/DL (0.2-1.0) Gamma Glutamyl Transpeptidase 35 U/L (5-85) Aspartate Amino Transf (AST/SGOT) 54 U/L (15-37) H Alanine Aminotransferase (ALT/SGPT) 45 U/L (12-78) Alkaline Phosphatase 67 U/L (46-116) Total Creatine Kinase 63 U/L (26-308) Troponin I 0.073 ng/mL (0.000-0.056) C-Reactive Protein, Quantitative 2.1 mg/dL (0.00-0.90) H Pro-B-Type Natriuretic Peptide 6473 pg/mL (0-125) H Total Protein 5.7 G/DL (6.4-8.2) L Albumin 1.6 G/DL (3.4-5.0) L Globulin 4.1 g/dL Albumin/Globulin Ratio 0.4 (1.0-2.7) L Triglycerides Level 116 MG/DL (30-150) Cholesterol Level 102 MG/DL (< 200) LDL Cholesterol 58 mg/dL (<100) HDL Cholesterol 18 MG/DL (40-60) L Cholesterol/HDL Ratio 5.7 (3.3-4.4) H Vitamin B12 Level 1185 PG/ML (193-986) H Folate 15.1 NG/ML (8.6-58.9) Random Vancomycin Level 24.3 ug/mL Hepatitis B Surface Antibody Pending Hepatitis C Antibody Pending HIV (1&2) Antibody Rapid Negative (NEGATIVE) Urine Eosinophils None seen Test 08/19/17 11:00 Prothrombin Time 20.9 SEC (9.30-11.50) H Prothromb Time International Ratio 2.0 (0.9-1.1) H Activated Partial Thromboplast Time 51 SEC (23-33) H General Appearance: well appearing, no apparent distress, alert Head: normocephalic EENT: PERRL/EOMI, normal ENT inspection Neck: supple Respiratory: normal breath sounds, no respiratory distress Cardiovascular: normal rate Gastrointestinal: normal inspection, non tender, soft, normal bowel sounds, non -distended Rectal: deferred Genitourinary: deferred Musculoskeletal: normal inspection, back normal Neurologic: alert, responsive Skin: normal inspection, normal color, no rash, warm/dry, palpation normal, well hydrated Lymphatic: normal inspection, no adenopathy Current Medications Current Medications Medications (Trade) Dose Ordered Sig/Srini Route PRN Reason Start Time Stop Time Status Last Admin Dose Admin Acetaminophen (Tylenol) 650 mg Q4H PRN ORAL fever 08/17/17 23:00 09/16/17 22:59 Chlorhexidine Gluconate (Sandra-Hex 2%) 1 applic DAILY@2000 TOPIC 08/18/17 20:00 09/17/17 19:59 08/18/17 20:48 Clonidine HCl (Catapres) 0.1 mg Q4H PRN ORAL For High Blood Pressure 08/17/17 23:00 09/16/17 22:59 Dextrose (Dextrose 50%) STAT PRN IV Hypoglycemia 08/17/17 23:00 09/16/17 22:59 Heparin Sodium (Porcine) (Heparin 5000 units/ml) 5,000 units EVERY 12 HOURS SUBQ 08/18/17 09:00 09/17/17 08:59 08/18/17 20:51 Levetiracetam 100 ml @ 400 mls/hr Q12HR IVPB 08/19/17 13:30 09/18/17 13:29 Levothyroxine Sodium (Synthroid) 50 mcg ACBREAKFAST ORAL 08/18/17 06:30 09/17/17 06:29 08/19/17 06:02 Lorazepam (Ativan 2mg/ml 1ml) 0.5 mg Q4H PRN IV For Anxiety 08/17/17 23:00 08/24/17 22:59 Lorazepam (Ativan 2mg/ml 1ml) 1 mg Q4H PRN IV seizure 08/18/17 15:00 08/25/17 14:59 Morphine Sulfate (Morphine Sulfate) 1 mg Q4H PRN IVP For Pain 08/17/17 23:00 08/24/17 22:59 Ondansetron HCl (Zofran) 4 mg Q6H PRN IVP Nausea & Vomiting 08/17/17 23:00 09/16/17 22:59 Pantoprazole 80 mg/Sodium Chloride 250 ml @ 25 mls/hr Q10H IV 08/19/17 13:30 09/18/17 13:29 Piperacillin Sod/ Tazobactam Sod 2.25 gm/Dextrose 55 ml @ 110 mls/hr Q8H IVPB 08/18/17 09:00 08/25/17 08:59 08/19/17 08:19 Polyethylene Glycol (Miralax) 17 gm HSPRN PRN ORAL Constipation 08/17/17 23:00 09/16/17 22:59 Sodium Bicarbonate 50 ml/ Dextrose 1,050 ml @ 100 mls/hr Q45M30K IV 08/18/17 11:00 09/17/17 10:59 08/19/17 08:19 Zolpidem Tartrate (Ambien) 5 mg HSPRN PRN ORAL Insomnia 08/17/17 23:00 08/24/17 22:59 GI: Plan Problems: (1) Anemia due to blood loss (2) UGI bleed (3) Hemorrhagic shock (4) Dehydration Plan EGD scheduled tomorrow pending cardiac clearance - NGT to [facility]GG[facility] @ [facility]. - hold all blood thinners anemia work up reviewed start PPI gtt monitor H&H, prn transfusion abx fu labs Discussed with Dr. Kitchen. Thank you for this patient referral, we will follow. Lou Jarquin N.P. Aug 19, 2017 12:22
--- NOTE | 2017-08-19 12:31 | Wound Care Consultation ---
Wound Assessment Wound Assessment : Wound Number: 1 Wound Present on Admission: Yes New Wound: No Status Change of Wound: No Wound Location Body Site Modif: right Wound Location Body Site: thigh Wound Type: other - open wound Ledy Test: Does not Ledy Wound Thickness: Full Thickness Wound Length: 28.0 Wound Width: 25.0 Wound Depth: 0.4 Percent of Wound [place]/Red: 100 Wound Drainage Description: Serosanguineous Wound Drainage Odor: None/Absent Wound General Appearance: Reddened, Draining, Muscle Visible Wound Comment #1 Right hip wound s/p debridement Recommendation. -Follow MD order for wound vac orders. -Apply P200 Low air loss mattress. -Turn and reposition. -Keep clean and dry. -Optimal nutrition. -Offload heels and feet. -Apply heel protectors. -Assess and notify MD for any further change of condition in skin. AV MARS Aug 19, 2017 12:31
[2017-08-19] MEDS: levETIRAcetam 1,000mg/NS100ml 100 ML IVPB SCH ×2 (12:56→23:09)
--- NOTE | 2017-08-19 13:40 | General Progress Note ---
Assessment/Plan Problem List: (1) Lymphoma ICD Codes: C85.90 - Non-Hodgkin lymphoma, unspecified, unspecified site SNOMED: 920383111 (2) Anemia ICD Codes: D64.9 - Anemia, unspecified SNOMED: 654402541 (3) Hypothyroid ICD Codes: E03.9 - Hypothyroidism, unspecified SNOMED: 36482995 (4) Malnutrition ICD Codes: E46 - Unspecified protein-calorie malnutrition SNOMED: 10816325 (5) Altered level of consciousness ICD Codes: R40.4 - Transient alteration of awareness SNOMED: 7369609 (6) Renal failure ICD Codes: N19 - Unspecified kidney failure SNOMED: 47736305 (7) Cellulitis ICD Codes: L03.90 - Cellulitis, unspecified SNOMED: 031880586 Status: unchanged Assessment/Plan ng ot pt diet cbc bmp am Subjective Constitutional: Reports: weakness Allergies: Coded Allergies: No Known Allergies (Unverified , 08/17/17) All Systems: reviewed and negative except above Subjective ng lethargic in icu Objective Last 24 Hour Vital Signs Date Time Temp Pulse Resp B/P (MAP) Pulse Ox O2 Delivery O2 Flow Rate FiO2 08/19/17 13:00 63 18 103/52 100 Room Air 08/19/17 12:00 61 08/19/17 12:00 97.8 63 16 108/44 100 Room Air 08/19/17 11:00 69 19 118/60 100 Room Air 08/19/17 10:00 61 21 106/55 100 Room Air 08/19/17 09:00 73 21 112/65 98 Room Air 08/19/17 08:00 70 08/19/17 08:00 97.6 67 22 128/59 96 Room Air 08/19/17 07:00 74 21 152/70 99 Room Air 08/19/17 06:00 62 17 119/60 100 Room Air 08/19/17 05:00 60 17 141/81 100 Room Air 08/19/17 04:00 97.8 72 21 119/55 100 Room Air 08/19/17 04:00 63 08/19/17 03:00 56 16 114/55 97 Room Air 08/19/17 02:00 56 24 137/73 97 Room Air 08/19/17 01:00 82 24 136/62 100 Room Air 08/19/17 00:00 98.3 74 21 97/50 100 Room Air 08/19/17 00:00 58 08/18/17 23:00 58 14 118/54 100 Room Air 08/18/17 22:00 59 13 115/47 100 Room Air 08/18/17 21:00 60 13 115/47 100 Room Air 08/18/17 20:00 62 08/18/17 20:00 98.3 62 13 108/51 100 Room Air 08/18/17 19:00 63 14 132/114 100 Room Air 08/18/17 18:00 57 14 138/115 100 Room Air 08/18/17 17:00 57 12 118/98 100 Room Air 08/18/17 16:00 98.4 61 16 135/114 100 Room Air 08/18/17 16:00 63 08/18/17 15:00 63 16 125/107 100 Room Air 08/18/17 14:00 61 14 125/46 100 Room Air Intake and Output 08/19/17 08/20/17 19:00 07:00 Intake Total 555 ml Output Total 145 ml Balance 410 ml IV Total 555 ml Output Urine Total 145 ml Laboratory Tests 08/18/17 17:22: Fibrinogen 230 08/18/17 18:00: Urine Color Yellow, Urine Appearance Slightly cloudy, Urine pH 5, Urine Specific [place] 1.015, Urine Protein 3+H, Urine Glucose (UA) Negative, Urine Ketones 3+H, Urine Occult Blood 4+H, Urine Nitrite Negative, Urine Bilirubin Negative, Urine Urobilinogen Normal, Urine Leukocyte Esterase 1+H, Urine RBC 0- 2H, Urine WBC 0-2, Urine Squamous Epithelial Cells None, Urine Amorphous Sediment ManyH, Urine Bacteria ModerateH, Urine Random Sodium < 10L 08/19/17 03:05: White Blood Count 4.7L, Red Blood Count 2.27L, Hemoglobin 7.5L, Hematocrit 21.9L , Mean Corpuscular Volume 96, Mean Corpuscular Hemoglobin 33.1H, Mean Corpuscular Hemoglobin Concent 34.4, Red Cell Distribution Width 17.9H, Platelet Count 185, Mean Platelet Volume 4.8L, Neutrophils (%) (Auto) , Lymphocytes (%) (Auto) , Monocytes (%) (Auto) , Eosinophils (%) (Auto) , Basophils (%) (Auto) , Sodium Level 144, Potassium Level 3.3L, Chloride Level 111H, Carbon Dioxide Level 22, Anion Gap 12, Blood Urea Nitrogen 92H, Creatinine 6.8H, Estimat Glomerular Filtration Rate 8.3, Glucose Level 120H, Hemoglobin A1c 5.9, Uric Acid 7.8H, Calcium Level 8.3L, Phosphorus Level 3.1, Magnesium Level 2.2, Ferritin > 2000H, Total Bilirubin 0.2, Gamma Glutamyl Transpeptidase 35, Aspartate Amino Transf (AST/SGOT) 54H, Alanine Aminotransferase (ALT/SGPT) 45, Alkaline Phosphatase 67, Total Creatine Kinase 63, Troponin I 0.073H, C-Reactive Protein, Quantitative 2.1H, Pro-B-Type Natriuretic Peptide 6473H, Total Protein 5.7L, Albumin 1.6L, Globulin 4.1, Albumin/Globulin Ratio 0.4L, Triglycerides Level 116, Cholesterol Level 102, LDL Cholesterol 58, HDL Cholesterol 18L, Cholesterol/HDL Ratio 5.7H, Vitamin B12 Level 1185H, Folate 15.1, Random Vancomycin Level 24.3, Hepatitis B Surface Antibody [Pending], Hepatitis C Antibody [Pending], HIV (1&2) Antibody Rapid Negative 08/19/17 08:00: Urine Eosinophils None seen 08/19/17 11:00: Prothrombin Time 20.9H, Prothromb Time International Ratio 2.0H, Activated Partial Thromboplast Time 51H Height (Feet): 5 Height (Inches): 7.00 Weight (Pounds): 104 General Appearance: lethargic EENT: normal ENT inspection Neck: normal alignment Cardiovascular: normal peripheral pulses, normal rate, regular rhythm Respiratory/Chest: chest wall non-tender, lungs clear, normal breath sounds Abdomen: normal bowel sounds, non tender, soft Extremities: normal inspection Edema: no edema noted Arm (L), no edema noted Arm (R), no edema noted Leg (L), no edema noted Leg (R), no edema noted Pedal (L), no edema noted Pedal (R), no edema noted Generalized Neurologic: motor weakness Skin: normal pigmentation, warm/dry ROBERT BANERJEE Aug 19, 2017 13:40
[2017-08-19] MEDS: Pantoprazole 80 MG in NS 250 ML IV SCH (13:55)
--- NOTE | 2017-08-19 16:15 | Electroencephalogram ---
DATE OF PROCEDURE: 08/18/2017 ELECTROENCEPHALOGRAPHY REPORT REQUESTING PHYSICIAN: Sherif Dailey D.O. HISTORY: The patient is a 62-year-old man with a new onset of intermittent arm jerking, predominantly on the right, persistent changes in mental status in the setting of underlying lymphoma. During the recording, the patient described as poorly cooperative, could not follow verbal commands. Current treatment included vancomycin. EEG was done using 18 electrodes placed [id number], [id number] montages according to 10/20 International System. Throughout the recording, background activity consists of a mixture of 3-6 cycles per second theta activities bilaterally with occasional appearance of bifrontal delta wave transients. Significant amount of EMG movement artifacts were noted or epochs of generalized beta activity. Noted intermittent jerks predominantly in the right upper extremity with the corresponding movement artifacts. There is no clear evidence of spike and wave or spike activity. Occasional single sharp wave transients were noted, which could indicate minor movement response or epileptiform activity. There was no significant asymmetry from [id number]. There was no clear evidence of spike or wave activity. IMPRESSION: Abnormal EEG with a generalized moderate slowing. No clear evidence of epileptiform activity. COMMENT: Above abnormality indicates global cerebral dysfunction and intermittent jerks of both upper extremities noted and corresponded to movement artifacts. Occasional sharp wave generalized transients noted that could indicate epileptiform activity. This required clinical correlation. Tesfaye Mchugh M.D. DR: HELGA JOB#: [id number] CC:
[2017-08-19] MEDS ORDERED: Sodium Bicarbonate 50 ML in D5W 1000ml 1,000 ML IV SCH (16:30)
--- NOTE | 2017-08-19 16:56 | Diagnostic Imaging Report ---
Indication: Renal failure Technique: Procedure performed at bedside. Procedural timeout performed. Total sterile technique, including sterile probe cover and sterile gel, sterile gloves, hand hygiene, hat, mask, sterile gown, large sterile drape, and preparation with 2% chlorhexidine utilized. Local anesthesia with 1% lidocaine. Under real-time ultrasound guidance, puncture right internal jugular vein using 20-gauge micropuncture needle, passage of an 08 guidewire, insertion 4 [place] micropuncture introducer, passage 0.035 guidewire, over which was passed serial dilators and then a 13 [place] 15 cm triple-lumen temporary dialysis catheter. Guidewire was removed. Catheter ports were aspirated and flushed. The catheter was fixed to the skin. Patient tolerated procedure well. A chest x-ray was obtained, documents catheter tip position at the cavoatrial junction. Comparison: None Findings: As above. Incidentally noted is a new nasogastric tube, tip of which projects barely in the stomach, proximal port above the gastroesophageal junction Impression: Successful bedside placement of right transjugular temporary dialysis catheter, as described.
--- NOTE | 2017-08-19 18:19 | Consultation ---
History of Present Illness General Date patient seen: Aug 19, 2017 Chief Complaint: Altered Level of Consciousness Referring physician: ROBERT BANERJEE Reason for Consultation: right hip wound Present Illness HPI 62 year old male with multiple medical problems as noted in EMR transferred to [facility] [place] for altered mental status. Patient with history of lymphoma receiving chemo therapy for some time now. developed necrotizing soft tissue infection of right hip requiring urgent surgery with debridement of infected tissues. was left with large right lateral hip wound that was being cared for at outside facility. became altered with change in status and transferred. surgery called to evaluate wound and wound management. EMR reviewed. patient examined. Allergies: Coded Allergies: No Known Allergies (Unverified , 08/17/17) Medication History Scheduled Cefepime Hcl/D5w (Cefepime-Dextrose 2 Gm/50 Ml), 2 GM IVPB EVERY 12 HOURS, ( Reported) Cephalexin (Cephalexin), 500 MG ORAL FOUR TIMES A DAY, (Reported) Cholecalciferol (Vitamin D3)* (Vitamin D*), 1,000 UNIT ORAL DAILY, (Reported) Famotidine (Famotidine), 20 MG ORAL TWICE A DAY, (Reported) Levothyroxine Sodium (Synthroid), 50 MCG ORAL DAILY, (Reported) Morphine Sulfate* (Ms Contin*), 30 MG ORAL EVERY 12 HOURS, (Reported) Multivitamin With Minerals (Multivitamins With Minerals*), 1 TAB ORAL DAILY, ( Reported) Trimethoprim/Sulfamethoxazole (Bactrim Ds Tablet), 1 TAB ORAL TWICE A DAY, ( Reported) Scheduled PRN Acetaminophen* (Acetaminophen 325MG Tablet*), 650 MG ORAL Q4H PRN for For Pain, (Reported) Albuterol Sulfate* (Albuterol Sulfate Hhn*), 3 ML INH Q4H PRN for Shortness of Breath, (Reported) Ipratropium Cherry Plain 0.5MG/2.5ML (Ipratropium Cherry Plain 0.5MG/2.5ML), 0.5 MG HHN Q6H PRN for Shortness of Breath, (Reported) Oxycodone Hcl/Acetaminophen 5-325* (Oxycodone-Acetaminophen 5-325*), 1 TAB ORAL Q6H PRN for For Pain, (Reported) Zolpidem Tartrate* (Ambien*), 10 MG ORAL BEDTIME PRN for Insomnia, (Reported) Miscellaneous Medications Lactobacillus Acidophilus/Pect (Acidophilus-Pectin Capsule), 1 EACH PO, ( Reported) Polyethylene Glycol 3350 (Polyethylene Glycol 3350), 17 GM MC, (Reported) Sennosides/Docusate Sodium (Senna Laxative Tablet), 1 EACH PO, (Reported) Testosterone (Androderm), 1 EACH TD, (Reported) Tuberculin Ppd (Tubersol), 0.1 ML IDERMAL, (Reported) Zinc Gluconate (Zinc), 220 MG ORAL, (Reported) [erythomycin ointment], 5 MG, (Reported) [maalox plus susp], 30 ML, (Reported) Patient History Limited by: medical condition History Provided By: Medical Record Healthcare decision maker Resuscitation status Full Code Advanced Directive on File Yes Past Medical/Surgical History Past Medical/Surgical History: (1) Metabolic acidosis (2) Altered level of consciousness (3) Acute renal failure (4) Renal failure (5) new onset of verbal unresponsiveness and generalised myoclonus, r.o seizure activity (6) r/o meningeal carcinomatosis (7) R acute mastoiditis (8) Acute renal failure (ARF) (9) Hemorrhagic shock (10) UGI bleed (11) Cellulitis (12) Dehydration (13) Anemia due to blood loss (14) Anemia (15) Lymphoma (16) Malnutrition (17) Hypothyroid Review of Systems All Other Systems: negative except mentioned in HPI - cannot obtain given patients current medical condition Physical Exam General Appearance: cachetic HEENT: atraumatic Neck: normal inspection Respiratory/Chest: no respiratory distress, no accessory muscle use Cardiovascular/Chest: normal peripheral pulses Abdomen: normal bowel sounds, soft, no organomegaly, no mass Extremities: other - significant muscle wasting Skin Exam: other - right hip lateral with [id number] wound. VAC functional. removed and wound with good granulation tissue. no areas requiring debridement at this time. Neurologic: unresponsiveness Last 24 Hour Vital Signs Date Time Temp Pulse Resp B/P (MAP) Pulse Ox O2 Delivery O2 Flow Rate FiO2 08/19/17 17:00 54 18 110/46 100 Room Air 08/19/17 16:00 62 08/19/17 16:00 97.7 61 16 99/48 100 Room Air 08/19/17 15:00 61 14 119/40 100 Room Air 08/19/17 14:00 64 19 117/101 100 Room Air 08/19/17 13:00 63 18 103/52 100 Room Air 08/19/17 12:00 61 08/19/17 12:00 97.8 63 16 108/44 100 Room Air 08/19/17 11:00 69 19 118/60 100 Room Air 08/19/17 10:00 61 21 106/55 100 Room Air 08/19/17 09:00 73 21 112/65 98 Room Air 08/19/17 08:00 70 08/19/17 08:00 97.6 67 22 128/59 96 Room Air 08/19/17 07:00 74 21 152/70 99 Room Air 08/19/17 06:00 62 17 119/60 100 Room Air 08/19/17 05:00 60 17 141/81 100 Room Air 08/19/17 04:00 97.8 72 21 119/55 100 Room Air 08/19/17 04:00 63 08/19/17 03:00 56 16 114/55 97 Room Air 08/19/17 02:00 56 24 137/73 97 Room Air 08/19/17 01:00 82 24 136/62 100 Room Air 08/19/17 00:00 98.3 74 21 97/50 100 Room Air 08/19/17 00:00 58 08/18/17 23:00 58 14 118/54 100 Room Air 08/18/17 22:00 59 13 115/47 100 Room Air 08/18/17 21:00 60 13 115/47 100 Room Air 08/18/17 20:00 62 08/18/17 20:00 98.3 62 13 108/51 100 Room Air 08/18/17 19:00 63 14 132/114 100 Room Air Intake and Output 08/19/17 08/20/17 19:00 07:00 Intake Total 930 ml Output Total 200 ml Balance 730 ml IV Total 930 ml Output Urine Total 200 ml Laboratory Tests Test 08/19/17 03:05 08/19/17 08:00 08/19/17 11:00 08/19/17 15:40 White Blood Count 4.7 K/UL (4.8-10.8) L Pending Red Blood Count 2.27 M/UL (4.70-6.10) L Hemoglobin 7.5 G/DL (14.2-18.0) L Hematocrit 21.9 % (42.0-52.0) L Mean Corpuscular Volume 96 FL (80-99) Mean Corpuscular Hemoglobin 33.1 PG (27.0-31.0) H Mean Corpuscular Hemoglobin Concent 34.4 G/DL (32.0-36.0) Red Cell Distribution Width 17.9 % (11.6-14.8) H Platelet Count 185 K/UL (150-450) Mean Platelet Volume 4.8 FL (6.5-10.1) L Neutrophils (%) (Auto) % (45.0-75.0) Lymphocytes (%) (Auto) % (20.0-45.0) Monocytes (%) (Auto) % (1.0-10.0) Eosinophils (%) (Auto) % (0.0-3.0) Basophils (%) (Auto) % (0.0-2.0) Sodium Level 144 MMOL/L (136-145) Potassium Level 3.3 MMOL/L (3.5-5.1) L Chloride Level 111 MMOL/L (98-107) H Carbon Dioxide Level 22 MMOL/L (21-32) Anion Gap 12 mmol/L (5-15) Blood Urea Nitrogen 92 mg/dL (7-18) H Creatinine 6.8 MG/DL (0.55-1.30) H Estimat Glomerular Filtration Rate 8.3 mL/min (>60) Glucose Level 120 MG/DL (74-106) H Hemoglobin A1c 5.9 % (4.3-6.0) Uric Acid 7.8 MG/DL (2.6-7.2) H Calcium Level 8.3 MG/DL (8.5-10.1) L Phosphorus Level 3.1 MG/DL (2.5-4.9) Magnesium Level 2.2 MG/DL (1.8-2.4) Ferritin > 2000 NG/ML (8-388) H Total Bilirubin 0.2 MG/DL (0.2-1.0) Gamma Glutamyl Transpeptidase 35 U/L (5-85) Aspartate Amino Transf (AST/SGOT) 54 U/L (15-37) H Alanine Aminotransferase (ALT/SGPT) 45 U/L (12-78) Alkaline Phosphatase 67 U/L (46-116) Total Creatine Kinase 63 U/L (26-308) Troponin I 0.073 ng/mL (0.000-0.056) C-Reactive Protein, Quantitative 2.1 mg/dL (0.00-0.90) H Pro-B-Type Natriuretic Peptide 6473 pg/mL (0-125) H Total Protein 5.7 G/DL (6.4-8.2) L Albumin 1.6 G/DL (3.4-5.0) L Globulin 4.1 g/dL Albumin/Globulin Ratio 0.4 (1.0-2.7) L Pending Triglycerides Level 116 MG/DL (30-150) Cholesterol Level 102 MG/DL (< 200) LDL Cholesterol 58 mg/dL (<100) HDL Cholesterol 18 MG/DL (40-60) L Cholesterol/HDL Ratio 5.7 (3.3-4.4) H Vitamin B12 Level 1185 PG/ML (193-986) H Folate 15.1 NG/ML (8.6-58.9) Random Vancomycin Level 24.3 ug/mL Hepatitis B Surface Antibody Pending Hepatitis C Antibody Pending HIV (1&2) Antibody Rapid Negative (NEGATIVE) Urine Eosinophils None seen Prothrombin Time 20.9 SEC (9.30-11.50) H Prothromb Time International Ratio 2.0 (0.9-1.1) H Activated Partial Thromboplast Time 51 SEC (23-33) H Lymphocytes Pending Total Protein (PEP) Pending Albumin (PEP) Pending Globulin (PEP) Pending [id number]-0-Cgvqytxxy Pending Jvbtg-6-Rskwxflge Pending Beta Globulins Pending Beta Gamma Globulin Pending PEP Abnormal Protein Bands Pending Protein Electrophoresis Interpret Pending Percent CD3 Cells Pending Absolute CD3 Count Pending Percent CD4 Cells Pending Absolute CD4 Count Pending T-Lymphocyte CD4/CD8 Ratio Pending Percent CD8 Cells Pending Absolute CD8 Count Pending Height (Feet): 5 Height (Inches): 7.00 Weight (Pounds): 104 Medications Current Medications Medications (Trade) Dose Ordered Sig/Srini Route PRN Reason Start Time Stop Time Status Last Admin Dose Admin Acetaminophen (Tylenol) 650 mg Q4H PRN ORAL fever 08/17/17 23:00 09/16/17 22:59 Chlorhexidine Gluconate (Sandra-Hex 2%) 1 applic DAILY@2000 TOPIC 08/18/17 20:00 09/17/17 19:59 08/18/17 20:48 Clonidine HCl (Catapres) 0.1 mg Q4H PRN ORAL For High Blood Pressure 08/17/17 23:00 09/16/17 22:59 Dextrose (Dextrose 50%) STAT PRN IV Hypoglycemia 08/17/17 23:00 09/16/17 22:59 Heparin Sodium (Porcine) (Heparin 5000 units/ml) 5,000 units EVERY 12 HOURS SUBQ 08/18/17 09:00 09/17/17 08:59 08/18/17 20:51 Levetiracetam 100 ml @ 400 mls/hr Q12HR IVPB 08/19/17 13:30 09/18/17 13:29 08/19/17 12:56 Levothyroxine Sodium (Synthroid) 50 mcg ACBREAKFAST ORAL 08/18/17 06:30 09/17/17 06:29 08/19/17 06:02 Lorazepam (Ativan 2mg/ml 1ml) 0.5 mg Q4H PRN IV For Anxiety 08/17/17 23:00 08/24/17 22:59 Lorazepam (Ativan 2mg/ml 1ml) 1 mg Q4H PRN IV seizure 08/18/17 15:00 08/25/17 14:59 Morphine Sulfate (Morphine Sulfate) 1 mg Q4H PRN IVP For Pain 08/17/17 23:00 08/24/17 22:59 Ondansetron HCl (Zofran) 4 mg Q6H PRN IVP Nausea & Vomiting 08/17/17 23:00 09/16/17 22:59 Pantoprazole 80 mg/Sodium Chloride 250 ml @ 25 mls/hr Q10H IV 08/19/17 13:30 09/18/17 13:29 08/19/17 13:55 Piperacillin Sod/ Tazobactam Sod 2.25 gm/Dextrose 55 ml @ 110 mls/hr Q8H IVPB 08/18/17 09:00 08/25/17 08:59 08/19/17 17:33 Polyethylene Glycol (Miralax) 17 gm HSPRN PRN ORAL Constipation 08/17/17 23:00 09/16/17 22:59 Sodium Bicarbonate 50 ml/ Dextrose 1,050 ml @ 50 mls/hr Q21H IV 08/19/17 16:30 09/18/17 16:29 08/19/17 17:40 Zolpidem Tartrate (Ambien) 5 mg HSPRN PRN ORAL Insomnia 08/17/17 23:00 08/24/17 22:59 Assessment/Plan Problem List: (1) Wound, open, hip or thigh Assessment & Plan: 62M here for medical evaluation and management. has large right lateral hip wound after episode of soft tissue infection requiring large debridement. wound has been managed at outside facility and will be managed by surgery while in hospital. when VAC removed wound was evaluated. good granulation tissue over large area of debridement. no tissues currently needing debridement. no drainage. no signs of active infection -keep wound clean. continue with VAC q3days at 100mmHg. -will monitor wound with VAC changes. -will do debridement as necessary. thank you for this consultation and allowing me to participate in patients care. will follow with recs ICD Codes: S71.009A - Unspecified open wound, unspecified hip, initial encounter; S71.109A - Unspecified open wound, unspecified thigh, initial encounter SNOMED: [id number] Qualifiers: Status: stable DariusjarretMauricio Aug 19, 2017 18:19
--- NOTE | 2017-08-19 18:31 | Cardiology Report ---
APPROVED REPORT EXAM: Two-dimensional and M-mode echocardiogram with Doppler and color Doppler. INDICATION Altered mental status Other Information Technically limited study due to poor acoustic windows Technically difficult study due to poor parasternal acoustical windows. Only apical and subcostal views obtained. Study quality precludes accurate assessment of regional wall motion. M-mode measurements of left ventricle not obtainable due to cardiac position (angle) Normal left ventricular chamber size, systolic function and wall motion to extent visualized. Left ventricular ejection fraction estimated to be grossly normal. No evidence of left ventricular hypertrophy. No evidence of pericardial effusion. All other cardiac chamber sizes are within normal limits. Focal aortic valve sclerosis with adequate cusp excursion. Thickened mitral valve leaflets with normal excursion. Mild mitral annulus and aortic root calcification. Pulmonic valve not visualized. Normal tricuspid valve structure. IVC at normal size with physiologic collapse. A color flow and spectral Doppler study was performed and revealed: No aortic regurgitation. No mitral regurgitation. Mitral diastolic velocities suggest mild left ventricular dysfunction (Grade I). Trace tricuspid regurgitation. Tricuspid systolic velocities suggests peak right ventricular systolic pressure of 15 mmHg.
--- NOTE | 2017-08-19 18:40 | Cardiology Report ---
APPROVED REPORT EKG Measurement Heart [id number] ID [id number] Sinus tachycardia with occasional premature ventricular complexes Left anterior fascicular block Abnormal QRS-T angle, consider primary T wave abnormality Abnormal ECG
[2017-08-19] MEDS: Dyna-Hex 2% Top Sol 2oz TOPIC SCH (20:32)
--- NOTE | 2017-08-19 21:38 | General Progress Note ---
Assessment/Plan Assessment/Plan ASSESSMENT AND RECOMMENDATIONS: 1. Facial lymphoma, status post chemotherapy with radiation. Currently cancer is in remission. Repeat CT of the head no evidence of malignancy. 2. Anemia secondary to chronic disease. Anemia workup has been reviewed. --> transfuse if hgb below 8 --> s/p transfusion 3. Anemia secondary to kidney disease. 4. Altered mental status. Neurology service is evaluating the patient. 5. Necrotizing fasciitis, status post wound VAC and surgery, completed 2 weeks ago. Subjective Allergies: Coded Allergies: No Known Allergies (Unverified , 08/17/17) All Systems: reviewed and negative except above Subjective no n/v, no fevers Objective Last 24 Hour Vital Signs Date Time Temp Pulse Resp B/P (MAP) Pulse Ox O2 Delivery O2 Flow Rate FiO2 08/19/17 21:00 69 13 126/45 99 Room Air 08/19/17 20:00 97.6 64 12 119/102 100 Room Air 08/19/17 20:00 64 08/19/17 19:00 53 19 121/39 100 Room Air 08/19/17 18:00 59 18 117/48 100 Room Air 08/19/17 17:00 54 18 110/46 100 Room Air 08/19/17 16:00 62 08/19/17 16:00 97.7 61 16 99/48 100 Room Air 08/19/17 15:00 61 14 119/40 100 Room Air 08/19/17 14:00 64 19 117/101 100 Room Air 08/19/17 13:00 63 18 103/52 100 Room Air 08/19/17 12:00 61 08/19/17 12:00 97.8 63 16 108/44 100 Room Air 08/19/17 11:00 69 19 118/60 100 Room Air 08/19/17 10:00 61 21 106/55 100 Room Air 08/19/17 09:00 73 21 112/65 98 Room Air 08/19/17 08:00 70 08/19/17 08:00 97.6 67 22 128/59 96 Room Air 08/19/17 07:00 74 21 152/70 99 Room Air 08/19/17 06:00 62 17 119/60 100 Room Air 08/19/17 05:00 60 17 141/81 100 Room Air 08/19/17 04:00 97.8 72 21 119/55 100 Room Air 12/4/17 04:00 63 08/19/17 03:00 56 16 114/55 97 Room Air 08/19/17 02:00 56 24 137/73 97 Room Air 08/19/17 01:00 82 24 136/62 100 Room Air 08/19/17 00:00 98.3 74 21 97/50 100 Room Air 08/19/17 00:00 58 08/18/17 23:00 58 14 118/54 100 Room Air 08/18/17 22:00 59 13 115/47 100 Room Air Intake and Output 08/19/17 08/20/17 19:00 07:00 Intake Total 1351.66 ml 150 ml Output Total 410 ml 0 ml Balance 941.66 ml 150 ml IV Total 1101.66 ml 150 ml Blood Product 250 ml Output Urine Total 210 ml 0 ml Gastric Drainage Total 150 ml Drainage Total 50 ml Laboratory Tests 08/19/17 03:05: White Blood Count 4.7L, Red Blood Count 2.27L, Hemoglobin 7.5L, Hematocrit 21.9L , Mean Corpuscular Volume 96, Mean Corpuscular Hemoglobin 33.1H, Mean Corpuscular Hemoglobin Concent 34.4, Red Cell Distribution Width 17.9H, Platelet Count 185, Mean Platelet Volume 4.8L, Neutrophils (%) (Auto) , Lymphocytes (%) (Auto) , Monocytes (%) (Auto) , Eosinophils (%) (Auto) , Basophils (%) (Auto) , Sodium Level 144, Potassium Level 3.3L, Chloride Level 111H, Carbon Dioxide Level 22, Anion Gap 12, Blood Urea Nitrogen 92H, Creatinine 6.8H, Estimat Glomerular Filtration Rate 8.3, Glucose Level 120H, Hemoglobin A1c 5.9, Uric Acid 7.8H, Calcium Level 8.3L, Phosphorus Level 3.1, Magnesium Level 2.2, Ferritin > 2000H, Total Bilirubin 0.2, Gamma Glutamyl Transpeptidase 35, Aspartate Amino Transf (AST/SGOT) 54H, Alanine Aminotransferase (ALT/SGPT) 45, Alkaline Phosphatase 67, Total Creatine Kinase 63, Troponin I 0.073H, C-Reactive Protein, Quantitative 2.1H, Pro-B-Type Natriuretic Peptide 6473H, Total Protein 5.7L, Albumin 1.6L, Globulin 4.1, Albumin/Globulin Ratio 0.4L, Triglycerides Level 116, Cholesterol Level 102, LDL Cholesterol 58, HDL Cholesterol 18L, Cholesterol/HDL Ratio 5.7H, Vitamin B12 Level 1185H, Folate 15.1, Random Vancomycin Level 24.3, Hepatitis B Surface Antibody [Pending], Hepatitis C Antibody [Pending], HIV (1&2) Antibody Rapid Negative 08/19/17 08:00: Urine Eosinophils None seen 08/19/17 11:00: Prothrombin Time 20.9H, Prothromb Time International Ratio 2.0H, Activated Partial Thromboplast Time 51H 08/19/17 15:40: White Blood Count [Pending], Albumin/Globulin Ratio [Pending], Lymphocytes [ Pending], Total Protein (PEP) [Pending], Albumin (PEP) [Pending], Globulin (PEP ) [Pending], Hqvys-5-Wnjudtwuk [Pending], Xzwfy-1-Twncqaytk [Pending], Beta Globulins [Pending], Beta Gamma Globulin [Pending], PEP Abnormal Protein Bands [ Pending], Protein Electrophoresis Interpret [Pending], Percent CD3 Cells [ Pending], Absolute CD3 Count [Pending], Percent CD4 Cells [Pending], Absolute CD4 Count [Pending], T-Lymphocyte CD4/CD8 Ratio [Pending], Percent CD8 Cells [ Pending], Absolute CD8 Count [Pending] Height (Feet): 5 Height (Inches): 7.00 Weight (Pounds): 104 General Appearance: no apparent distress EENT: normal ENT inspection Neck: normal alignment Cardiovascular: normal peripheral pulses Extremities: non-tender Edema: trace edema Nader Brumfield Aug 19, 2017 21:38
[2017-08-20] VITALS (24 sets, daily range): BP systolic 88–143; BP diastolic 39–115
[2017-08-20] MEDS: Piperacillin/Tazobactam 2.25 GM in D5W 55 ML IVPB SCH ×2 (01:01→10:04)
[2017-08-20 05:11] LABS: BASOPHILS % (AUTO) 0.7 % (0.0-2.0); EOSINOPHILS % (AUTO) 1.6 % (0.0-3.0); LYMPHOCYTES % (AUTO) 6.4 % (20.0-45.0); MEAN CORPUSCULAR HEMOGLOBIN 32.4 PG (27.0-31.0); MEAN CORPUSCULAR HGB CONC 33.9 G/DL (32.0-36.0); MEAN CORPUSCULAR VOLUME 96 FL (80-99); MEAN PLATELET VOLUME 5.5 FL (6.5-10.1); MONOCYTES % (AUTO) 13.8 % (1.0-10.0); NEUTROPHILS % (AUTO) 77.4 % (45.0-75.0); PLATELET COUNT 167 K/UL (150-450); RED BLOOD COUNT 2.87 M/UL (4.70-6.10); RED CELL DISTRIBUTION WIDTH 16.3 % (11.6-14.8); WHITE BLOOD COUNT 6.5 K/UL (4.8-10.8)
[2017-08-20 05:13] LABS: ALANINE AMINOTRANSFERASE 48 U/L (12-78); ALBUMIN/GLOBULIN RATIO 0.4 (1.0-2.7); ANION GAP 4 mmol/L (5-15); ASPARTATE AMINO TRANSFERASE 79 U/L (15-37); CARBON DIOXIDE 36 MMOL/L (21-32); CHLORIDE 111 MMOL/L (98-107); CREATININE 2.7 MG/DL (0.55-1.30); GLOMERULAR FILTRATION RATE 24.2 mL/min (>60); MAGNESIUM 1.9 MG/DL (1.8-2.4); PHOSPHORUS 1.6 MG/DL (2.5-4.9); SODIUM 151 MMOL/L (136-145); TOTAL PROTEIN 5.6 G/DL (6.4-8.2); URIC ACID 2.3 MG/DL (2.6-7.2)
[2017-08-20 05:16] LABS: AMMONIA 9 umol/L (11-32)
[2017-08-20 06:05] LABS: INR 2.4 (0.9-1.1); PROTHROMBIN TIME 25.5 SEC (9.30-11.50)
[2017-08-20] MEDS: levETIRAcetam 1,000mg/NS100ml 100 ML IVPB SCH ×2 (08:55→20:32)
[2017-08-20] MEDS: Heparin 5000 units/ml inj SUBQ SCH ×2 (08:58→20:41)
[2017-08-20] MEDS ORDERED: D5W IVPB ONE (09:00)
[2017-08-20] MEDS ORDERED: VANCOMYCIN IVPB ONE (09:00)
--- NOTE | 2017-08-20 09:31 | General Progress Note ---
Assessment/Plan Assessment/Plan ASSESSMENT AND RECOMMENDATIONS: 1. Facial lymphoma, status post chemotherapy with radiation. Currently cancer is in remission. Repeat CT of the head no evidence of malignancy. 2. Anemia secondary to chronic disease. Anemia workup has been reviewed. --> transfuse if hgb below 7 --> s/p transfusion 3. Anemia secondary to kidney disease. --> PATTI has improved, likely due to ATN 4. Altered mental status. Neurology service is evaluating the patient. --> Mri of the brain is pending as is spinal tap --> Appreciate neuro evaluation 5. Necrotizing fasciitis, status post wound VAC and surgery, completed 2 weeks ago. Subjective Constitutional: Reports: no symptoms HEENT: Reports: no symptoms Cardiovascular: Reports: no symptoms Respiratory: Reports: no symptoms Gastrointestinal/Abdominal: Reports: poor appetite Genitourinary: Reports: no symptoms Neurologic/Psychiatric: Reports: no symptoms Endocrine: Reports: no symptoms Hematologic/Lymphatic: Reports: anemia Allergies: Coded Allergies: No Known Allergies (Unverified , 08/17/17) Subjective no n/v, no fevers, no chills Objective Last 24 Hour Vital Signs Date Time Temp Pulse Resp B/P (MAP) Pulse Ox O2 Delivery O2 Flow Rate FiO2 08/20/17 08:00 97.7 63 17 127/56 99 Room Air 08/20/17 07:00 65 15 135/47 98 Room Air 08/20/17 06:00 58 14 115/95 100 Room Air 08/20/17 05:00 64 16 127/104 98 Room Air 08/20/17 04:00 97.6 61 17 131/104 100 Room Air 08/20/17 04:00 61 08/20/17 03:00 56 15 131/112 97 Room Air 08/20/17 02:00 63 16 128/105 97 Room Air 08/20/17 01:00 59 19 128/46 98 Room Air 08/20/17 00:00 67 08/20/17 00:00 97.8 62 16 88/39 97 Room Air 08/19/17 23:00 66 22 97/65 95 Room Air 08/19/17 22:00 92 21 119/65 95 Room Air 08/19/17 21:00 69 13 126/45 99 Room Air 08/19/17 20:00 97.6 64 12 119/102 100 Room Air 08/19/17 20:00 64 08/19/17 19:00 53 19 121/39 100 Room Air 08/19/17 18:00 59 18 117/48 100 Room Air 08/19/17 17:00 54 18 110/46 100 Room Air 08/19/17 16:00 62 08/19/17 16:00 97.7 61 16 99/48 100 Room Air 08/19/17 15:00 61 14 119/40 100 Room Air 08/19/17 14:00 64 19 117/101 100 Room Air 08/19/17 13:00 63 18 103/52 100 Room Air 08/19/17 12:00 61 08/19/17 12:00 97.8 63 16 108/44 100 Room Air 08/19/17 11:00 69 19 118/60 100 Room Air 08/19/17 10:00 61 21 106/55 100 Room Air Intake and Output 08/20/17 08/21/17 19:00 07:00 Intake Total 75 ml Output Total 20 ml Balance 55 ml IV Total 75 ml Output Urine Total 20 ml Laboratory Tests 08/19/17 11:00: Prothrombin Time 20.9H, Prothromb Time International Ratio 2.0H, Activated Partial Thromboplast Time 51H 08/19/17 15:40: White Blood Count [Pending], Lymphocytes [Pending], Total Protein (PEP) [Pending ], Albumin (PEP) [Pending], Globulin (PEP) [Pending], Albumin/Globulin Ratio [ Pending], Pxndf-4-Hcsieyjpa [Pending], Jhstp-1-Rbyjzrzuv [Pending], Beta Globulins [Pending], Beta Gamma Globulin [Pending], PEP Abnormal Protein Bands [ Pending], Protein Electrophoresis Interpret [Pending], Percent CD3 Cells [ Pending], Absolute CD3 Count [Pending], Percent CD4 Cells [Pending], Absolute CD4 Count [Pending], T-Lymphocyte CD4/CD8 Ratio [Pending], Percent CD8 Cells [ Pending], Absolute CD8 Count [Pending] 08/20/17 04:00: Prothrombin Time 25.5H, Prothromb Time International Ratio 2.4H, Activated Partial Thromboplast Time 54H, White Blood Count 6.5, Albumin/Globulin Ratio 0.4L, Red Blood Count 2.87L, Hemoglobin 9.3L, Hematocrit 27.4L, Mean Corpuscular Volume 96, Mean Corpuscular Hemoglobin 32.4H, Mean Corpuscular Hemoglobin Concent 33.9, Red Cell Distribution Width 16.3H, Platelet Count 167, Mean Platelet Volume 5.5L, Neutrophils (%) (Auto) 77.4H, Lymphocytes (%) (Auto) 6.4L, Monocytes (%) (Auto) 13.8H, Eosinophils (%) (Auto) 1.6, Basophils (%) ( Auto) 0.7, Urine Eosinophils None seen, Sodium Level 151H, Potassium Level 3.0L , Chloride Level 111H, Carbon Dioxide Level 36H, Anion Gap 4L, Blood Urea Nitrogen 22H, Creatinine 2.7#H, Estimat Glomerular Filtration Rate 24.2, Glucose Level 137H, Uric Acid 2.3L, Calcium Level 8.0L, Phosphorus Level 1.6L, Magnesium Level 1.9, Total Bilirubin 0.4, Gamma Glutamyl Transpeptidase 37, Aspartate Amino Transf (AST/SGOT) 79H, Alanine Aminotransferase (ALT/SGPT) 48, Alkaline Phosphatase 72, Ammonia 9L, Troponin I 0.038, C-Reactive Protein, Quantitative 6.0H, Pro-B-Type Natriuretic Peptide 7821H, Total Protein 5.6L, Albumin 1.5L, Globulin 4.1, Random Vancomycin Level 14.5 Height (Feet): 5 Height (Inches): 7.00 Weight (Pounds): 105 General Appearance: no apparent distress EENT: TMs normal Neck: supple Cardiovascular: normal rate Respiratory/Chest: no respiratory distress Abdomen: no organomegaly Extremities: non-tender Edema: no edema noted Leg (L), no edema noted Leg (R) Edema: mild edema Neurologic: alert Skin: warm/dry Nader Brumfield Aug 20, 2017 09:30
--- NOTE | 2017-08-20 09:38 | Pulmonolgy Critical Care Note ---
Critical Care - Asmt/Plan Problems: (1) Hemorrhagic shock (2) UGI bleed (3) Altered level of consciousness (4) Acute renal failure (5) Cellulitis Respiratory: monitor respiratory rate, adjust FIO2, CXR Cardiac: continue to monitor HR/BP Renal: F/U I&O, keep IV fluid Infectious Disease: check cultures Gastrointestinal: continue feedings/current rate Endocrine: monitor blood sugar, check TSH Hematologic: transfuse if hgb<8.5, other - received one unit yesterday Neurologic: PRN Ativan, PRN Morphine, keep patient comfortable Prophylaxis: Protonix, Heparin Notes Reviewed: cardio Discussed with: nurses, consultants, case aideoperations manager assistant - Objective Last 24 Hour Vital Signs Date Time Temp Pulse Resp B/P (MAP) Pulse Ox O2 Delivery O2 Flow Rate FiO2 08/20/17 09:00 61 15 132/115 100 Room Air 08/20/17 08:00 97.7 63 17 127/56 99 Room Air 08/20/17 07:00 65 15 135/47 98 Room Air 08/20/17 06:00 58 14 115/95 100 Room Air 08/20/17 05:00 64 16 127/104 98 Room Air 08/20/17 04:00 97.6 61 17 131/104 100 Room Air 08/20/17 04:00 61 08/20/17 03:00 56 15 131/112 97 Room Air 08/20/17 02:00 63 16 128/105 97 Room Air 08/20/17 01:00 59 19 128/46 98 Room Air 08/20/17 00:00 67 08/20/17 00:00 97.8 62 16 88/39 97 Room Air 08/19/17 23:00 66 22 97/65 95 Room Air 08/19/17 22:00 92 21 119/65 95 Room Air 08/19/17 21:00 69 13 126/45 99 Room Air 08/19/17 20:00 97.6 64 12 119/102 100 Room Air 08/19/17 20:00 64 08/19/17 19:00 53 19 121/39 100 Room Air 08/19/17 18:00 59 18 117/48 100 Room Air 08/19/17 17:00 54 18 110/46 100 Room Air 08/19/17 16:00 62 08/19/17 16:00 97.7 61 16 99/48 100 Room Air 08/19/17 15:00 61 14 119/40 100 Room Air 08/19/17 14:00 64 19 117/101 100 Room Air 08/19/17 13:00 63 18 103/52 100 Room Air 08/19/17 12:00 61 08/19/17 12:00 97.8 63 16 108/44 100 Room Air 08/19/17 11:00 69 19 118/60 100 Room Air 08/19/17 10:00 61 21 106/55 100 Room Air Status: awake Condition: critical HEENT: atraumatic Lungs: clear Heart: HR/BP stable, HR/BP unstable Abdomen: soft, non-tender, feeding tube Extremities: no C/C/E Micro: Microbiology Date/Time Source Procedure Growth Status 08/17/17 18:32 Blood Blood Culture - Preliminary NO GROWTH AFTER 48 HOURS Resulted 08/17/17 18:32 Blood Blood Culture - Preliminary NO GROWTH AFTER 48 HOURS Resulted 08/17/17 21:08 Nasal Nares MRSA Culture - Final NO METHICILLIN RESISTANT STAPH AUREUS... 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 Complete Critical Care - Subjective ROS Limited/Unobtainable: No ICU Day: 3 Condition: critical EKG Rhythm: Sinus Rhythm Fluids: bicarb drip I&O: Intake and Output 08/20/17 08/21/17 19:00 07:00 Intake Total 75 ml Output Total 30 ml Balance 45 ml IV Total 75 ml Output Urine Total 30 ml CXR: pending Labs: Laboratory Tests Test 08/19/17 11:00 08/19/17 15:40 08/20/17 04:00 Prothrombin Time 20.9 SEC (9.30-11.50) H 25.5 SEC (9.30-11.50) H Prothromb Time International Ratio 2.0 (0.9-1.1) H 2.4 (0.9-1.1) H Activated Partial Thromboplast Time 51 SEC (23-33) H 54 SEC (23-33) H White Blood Count Pending 6.5 K/UL (4.8-10.8) Lymphocytes Pending Total Protein (PEP) Pending Albumin (PEP) Pending Globulin (PEP) Pending Albumin/Globulin Ratio Pending 0.4 (1.0-2.7) L [id number]-[id number] Pending Nnhea-6-Baupfpahq Pending Beta Globulins Pending Beta Gamma Globulin Pending PEP Abnormal Protein Bands Pending Protein Electrophoresis Interpret Pending Percent CD3 Cells Pending Absolute CD3 Count Pending Percent CD4 Cells Pending Absolute CD4 Count Pending T-Lymphocyte CD4/CD8 Ratio Pending Percent CD8 Cells Pending Absolute CD8 Count Pending Red Blood Count 2.87 M/UL (4.70-6.10) L Hemoglobin 9.3 G/DL (14.2-18.0) L Hematocrit 27.4 % (42.0-52.0) L Mean Corpuscular Volume 96 FL (80-99) Mean Corpuscular Hemoglobin 32.4 PG (27.0-31.0) H Mean Corpuscular Hemoglobin Concent 33.9 G/DL (32.0-36.0) Red Cell Distribution Width 16.3 % (11.6-14.8) H Platelet Count 167 K/UL (150-450) Mean Platelet Volume 5.5 FL (6.5-10.1) L Neutrophils (%) (Auto) 77.4 % (45.0-75.0) H Lymphocytes (%) (Auto) 6.4 % (20.0-45.0) L Monocytes (%) (Auto) 13.8 % (1.0-10.0) H Eosinophils (%) (Auto) 1.6 % (0.0-3.0) Basophils (%) (Auto) 0.7 % (0.0-2.0) Urine Eosinophils None seen Sodium Level 151 MMOL/L (136-145) H Potassium Level 3.0 MMOL/L (3.5-5.1) L Chloride Level 111 MMOL/L (98-107) H Carbon Dioxide Level 36 MMOL/L (21-32) H Anion Gap 4 mmol/L (5-15) L Blood Urea Nitrogen 22 mg/dL (7-18) H Creatinine 2.7 MG/DL (0.55-1.30) #H Estimat Glomerular Filtration Rate 24.2 mL/min (>60) Glucose Level 137 MG/DL (74-106) H Uric Acid 2.3 MG/DL (2.6-7.2) L Calcium Level 8.0 MG/DL (8.5-10.1) L Phosphorus Level 1.6 MG/DL (2.5-4.9) L Magnesium Level 1.9 MG/DL (1.8-2.4) Total Bilirubin 0.4 MG/DL (0.2-1.0) Gamma Glutamyl Transpeptidase 37 U/L (5-85) Aspartate Amino Transf (AST/SGOT) 79 U/L (15-37) H Alanine Aminotransferase (ALT/SGPT) 48 U/L (12-78) Alkaline Phosphatase 72 U/L (46-116) Ammonia 9 umol/L (11-32) L Troponin I 0.038 ng/mL (0.000-0.056) C-Reactive Protein, Quantitative 6.0 mg/dL (0.00-0.90) H Pro-B-Type Natriuretic Peptide 7821 pg/mL (0-125) H Total Protein 5.6 G/DL (6.4-8.2) L Albumin 1.5 G/DL (3.4-5.0) L Globulin 4.1 g/dL Random Vancomycin Level 14.5 ug/mL MAYRA BAKER Aug 20, 2017 09:38
[2017-08-20] MEDS: Pantoprazole 80 MG in NS 250 ML IV SCH ×4 (10:04→20:30)
--- NOTE | 2017-08-20 10:33 | Cardiac Electrophysiology PN ---
Assessment/Plan Status Narrative Normal left ventricular chamber size, systolic function and wall motion to extent visualized. Left ventricular ejection fraction estimated to be grossly normal. No evidence of left ventricular hypertrophy. No evidence of pericardial effusion. All other cardiac chamber sizes are within normal limits. Focal aortic valve sclerosis with adequate cusp excursion. Thickened mitral valve leaflets with normal excursion. Mild mitral annulus and aortic root calcification. Pulmonic valve not visualized. Normal tricuspid valve structure. IVC at normal size with physiologic collapse. Assessment/Plan 1. Abnormal electrocardiogram with primary T-wave abnormality.1st trop was negative and second one 0.7 mildly elevated and the 3rd one this am is negative.Due to renal failure and sepsis.Echocardiogram Nl EF. No chest pain or SOB. 2. Metabolic acidosis with carbon dioxide of only 7.Due to renal failure and sepsis 3. BNP of more than 5000. Due to renal failure and volume overload. 4. Renal failure. S/P Tray catheter and HD per Dr. Blakely 5. Hypernatremia. Now on D5W 6. Altered mental status. The head CT showed no acute intracranial bleed, mass effect, or edema. MRI brain pending today after EGD. LINDSEY RN, Christina Subjective Subjective In ICU had Tray and HD yesterday. On IV Protonix. Getting EGD today by Dr Kitchen. Objective Last 24 Hour Vital Signs Date Time Temp Pulse Resp B/P (MAP) Pulse Ox O2 Delivery O2 Flow Rate FiO2 08/20/17 09:00 61 15 132/115 100 Room Air 08/20/17 08:00 97.7 63 17 127/56 99 Room Air 08/20/17 07:00 65 15 135/47 98 Room Air 08/20/17 06:00 58 14 115/95 100 Room Air 08/20/17 05:00 64 16 127/104 98 Room Air 08/20/17 04:00 97.6 61 17 131/104 100 Room Air 08/20/17 04:00 61 08/20/17 03:00 56 15 131/112 97 Room Air 08/20/17 02:00 63 16 128/105 97 Room Air 08/20/17 01:00 59 19 128/46 98 Room Air 08/20/17 00:00 67 08/20/17 00:00 97.8 62 16 88/39 97 Room Air 08/19/17 23:00 66 22 97/65 95 Room Air 08/19/17 22:00 92 21 119/65 95 Room Air 08/19/17 21:00 69 13 126/45 99 Room Air 08/19/17 20:00 97.6 64 12 119/102 100 Room Air 08/19/17 20:00 64 08/19/17 19:00 53 19 121/39 100 Room Air 08/19/17 18:00 59 18 117/48 100 Room Air 08/19/17 17:00 54 18 110/46 100 Room Air 08/19/17 16:00 62 08/19/17 16:00 97.7 61 16 99/48 100 Room Air 08/19/17 15:00 61 14 119/40 100 Room Air 08/19/17 14:00 64 19 117/101 100 Room Air 08/19/17 13:00 63 18 103/52 100 Room Air 08/19/17 12:00 61 08/19/17 12:00 97.8 63 16 108/44 100 Room Air 08/19/17 11:00 69 19 118/60 100 Room Air Intake and Output 08/20/17 08/21/17 19:00 07:00 Intake Total 75 ml Output Total 30 ml Balance 45 ml IV Total 75 ml Output Urine Total 30 ml Laboratory Tests Test 08/19/17 11:00 08/19/17 15:40 08/20/17 04:00 Prothrombin Time 20.9 SEC (9.30-11.50) H 25.5 SEC (9.30-11.50) H Prothromb Time International Ratio 2.0 (0.9-1.1) H 2.4 (0.9-1.1) H Activated Partial Thromboplast Time 51 SEC (23-33) H 54 SEC (23-33) H White Blood Count Pending 6.5 K/UL (4.8-10.8) Lymphocytes Pending Total Protein (PEP) Pending Albumin (PEP) Pending Globulin (PEP) Pending Albumin/Globulin Ratio Pending 0.4 (1.0-2.7) L Ooevb-0-Pahcwncqj Pending Iyhku-6-Nvtqvnems Pending Beta Globulins Pending Beta Gamma Globulin Pending PEP Abnormal Protein Bands Pending Protein Electrophoresis Interpret Pending Percent CD3 Cells Pending Absolute CD3 Count Pending Percent CD4 Cells Pending Absolute CD4 Count Pending T-Lymphocyte CD4/CD8 Ratio Pending Percent CD8 Cells Pending Absolute CD8 Count Pending Red Blood Count 2.87 M/UL (4.70-6.10) L Hemoglobin 9.3 G/DL (14.2-18.0) L Hematocrit 27.4 % (42.0-52.0) L Mean Corpuscular Volume 96 FL (80-99) Mean Corpuscular Hemoglobin 32.4 PG (27.0-31.0) H Mean Corpuscular Hemoglobin Concent 33.9 G/DL (32.0-36.0) Red Cell Distribution Width 16.3 % (11.6-14.8) H Platelet Count 167 K/UL (150-450) Mean Platelet Volume 5.5 FL (6.5-10.1) L Neutrophils (%) (Auto) 77.4 % (45.0-75.0) H Lymphocytes (%) (Auto) 6.4 % (20.0-45.0) L Monocytes (%) (Auto) 13.8 % (1.0-10.0) H Eosinophils (%) (Auto) 1.6 % (0.0-3.0) Basophils (%) (Auto) 0.7 % (0.0-2.0) Urine Eosinophils None seen Sodium Level 151 MMOL/L (136-145) H Potassium Level 3.0 MMOL/L (3.5-5.1) L Chloride Level 111 MMOL/L (98-107) H Carbon Dioxide Level 36 MMOL/L (21-32) H Anion Gap 4 mmol/L (5-15) L Blood Urea Nitrogen 22 mg/dL (7-18) H Creatinine 2.7 MG/DL (0.55-1.30) #H Estimat Glomerular Filtration Rate 24.2 mL/min (>60) Glucose Level 137 MG/DL (74-106) H Uric Acid 2.3 MG/DL (2.6-7.2) L Calcium Level 8.0 MG/DL (8.5-10.1) L Phosphorus Level 1.6 MG/DL (2.5-4.9) L Magnesium Level 1.9 MG/DL (1.8-2.4) Total Bilirubin 0.4 MG/DL (0.2-1.0) Gamma Glutamyl Transpeptidase 37 U/L (5-85) Aspartate Amino Transf (AST/SGOT) 79 U/L (15-37) H Alanine Aminotransferase (ALT/SGPT) 48 U/L (12-78) Alkaline Phosphatase 72 U/L (46-116) Ammonia 9 umol/L (11-32) L Troponin I 0.038 ng/mL (0.000-0.056) C-Reactive Protein, Quantitative 6.0 mg/dL (0.00-0.90) H Pro-B-Type Natriuretic Peptide 7821 pg/mL (0-125) H Total Protein 5.6 G/DL (6.4-8.2) L Albumin 1.5 G/DL (3.4-5.0) L Globulin 4.1 g/dL Random Vancomycin Level 14.5 ug/mL Microbiology Date/Time Source Procedure Growth Status 08/17/17 18:32 Blood Blood Culture - Preliminary NO GROWTH AFTER 48 HOURS Resulted 08/17/17 18:32 Blood Blood Culture - Preliminary NO GROWTH AFTER 48 HOURS Resulted 08/17/17 21:08 Nasal Nares MRSA Culture - Final NO METHICILLIN RESISTANT STAPH AUREUS... 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 Complete Objective HEAD AND NECK: Showed no JVD.NG tube in with coffee ground drainage. S/P Right face surgery/scar LUNGS: Clear. CARDIOVASCULAR: Regular. S1 and S2 with no gallop, his chest has a right- sided port. ABDOMEN: Soft. EXTREMITIES: No edema. NICOLÁS PARKINSON Aug 20, 2017 10:33
--- NOTE | 2017-08-20 11:07 | General Surgery Progress Note ---
General Surgery-Progress Note Subjective Symptoms: improved Additional Comments more responsive today. wound vac evaluated and functional. serous output. Objective Last 24 Hour Vital Signs Date Time Temp Pulse Resp B/P (MAP) Pulse Ox O2 Delivery O2 Flow Rate FiO2 08/20/17 10:00 60 15 126/110 100 Room Air 08/20/17 09:00 61 15 132/115 100 Room Air 08/20/17 08:00 60 08/20/17 08:00 97.7 63 17 127/56 99 Room Air 08/20/17 07:00 65 15 135/47 98 Room Air 08/20/17 06:00 58 14 115/95 100 Room Air 08/20/17 05:00 64 16 127/104 98 Room Air 08/20/17 04:00 97.6 61 17 131/104 100 Room Air 08/20/17 04:00 61 08/20/17 03:00 56 15 131/112 97 Room Air 08/20/17 02:00 63 16 128/105 97 Room Air 08/20/17 01:00 59 19 128/46 98 Room Air 08/20/17 00:00 67 08/20/17 00:00 97.8 62 16 88/39 97 Room Air 08/19/17 23:00 66 22 97/65 95 Room Air 08/19/17 22:00 92 21 119/65 95 Room Air 08/19/17 21:00 69 13 126/45 99 Room Air 08/19/17 20:00 97.6 64 12 119/102 100 Room Air 08/19/17 20:00 64 08/19/17 19:00 53 19 121/39 100 Room Air 08/19/17 18:00 59 18 117/48 100 Room Air 08/19/17 17:00 54 18 110/46 100 Room Air 08/19/17 16:00 62 08/19/17 16:00 97.7 61 16 99/48 100 Room Air 08/19/17 15:00 61 14 119/40 100 Room Air 08/19/17 14:00 64 19 117/101 100 Room Air 08/19/17 13:00 63 18 103/52 100 Room Air 08/19/17 12:00 61 08/19/17 12:00 97.8 63 16 108/44 100 Room Air I&O Intake and Output 08/20/17 08/21/17 19:00 07:00 Intake Total 280 ml Output Total 40 ml Balance 240 ml IV Total 280 ml Output Urine Total 40 ml Dressing: dry Wound: clean Drains: wound vac Cardiovascular: RSR Respiratory: clear Abdomen: soft, non-tender Extremities: no edema Laboratory Tests Test 08/19/17 15:40 08/20/17 04:00 White Blood Count Pending 6.5 K/UL (4.8-10.8) Lymphocytes Pending Total Protein (PEP) Pending Albumin (PEP) Pending Globulin (PEP) Pending Albumin/Globulin Ratio Pending 0.4 (1.0-2.7) L Baupk-6-Wfpkejfdy Pending Lyudi-2-Jukecokud Pending Beta Globulins Pending Beta Gamma Globulin Pending PEP Abnormal Protein Bands Pending Protein Electrophoresis Interpret Pending Percent CD3 Cells Pending Absolute CD3 Count Pending Percent CD4 Cells Pending Absolute CD4 Count Pending T-Lymphocyte CD4/CD8 Ratio Pending Percent CD8 Cells Pending Absolute CD8 Count Pending Red Blood Count 2.87 M/UL (4.70-6.10) L Hemoglobin 9.3 G/DL (14.2-18.0) L Hematocrit 27.4 % (42.0-52.0) L Mean Corpuscular Volume 96 FL (80-99) Mean Corpuscular Hemoglobin 32.4 PG (27.0-31.0) H Mean Corpuscular Hemoglobin Concent 33.9 G/DL (32.0-36.0) Red Cell Distribution Width 16.3 % (11.6-14.8) H Platelet Count 167 K/UL (150-450) Mean Platelet Volume 5.5 FL (6.5-10.1) L Neutrophils (%) (Auto) 77.4 % (45.0-75.0) H Lymphocytes (%) (Auto) 6.4 % (20.0-45.0) L Monocytes (%) (Auto) 13.8 % (1.0-10.0) H Eosinophils (%) (Auto) 1.6 % (0.0-3.0) Basophils (%) (Auto) 0.7 % (0.0-2.0) Prothrombin Time 25.5 SEC (9.30-11.50) H Prothromb Time International Ratio 2.4 (0.9-1.1) H Activated Partial Thromboplast Time 54 SEC (23-33) H Urine Eosinophils None seen Sodium Level 151 MMOL/L (136-145) H Potassium Level 3.0 MMOL/L (3.5-5.1) L Chloride Level 111 MMOL/L (98-107) H Carbon Dioxide Level 36 MMOL/L (21-32) H Anion Gap 4 mmol/L (5-15) L Blood Urea Nitrogen 22 mg/dL (7-18) H Creatinine 2.7 MG/DL (0.55-1.30) #H Estimat Glomerular Filtration Rate 24.2 mL/min (>60) Glucose Level 137 MG/DL (74-106) H Uric Acid 2.3 MG/DL (2.6-7.2) L Calcium Level 8.0 MG/DL (8.5-10.1) L Phosphorus Level 1.6 MG/DL (2.5-4.9) L Magnesium Level 1.9 MG/DL (1.8-2.4) Total Bilirubin 0.4 MG/DL (0.2-1.0) Gamma Glutamyl Transpeptidase 37 U/L (5-85) Aspartate Amino Transf (AST/SGOT) 79 U/L (15-37) H Alanine Aminotransferase (ALT/SGPT) 48 U/L (12-78) Alkaline Phosphatase 72 U/L (46-116) Ammonia 9 umol/L (11-32) L Troponin I 0.038 ng/mL (0.000-0.056) C-Reactive Protein, Quantitative 6.0 mg/dL (0.00-0.90) H Pro-B-Type Natriuretic Peptide 7821 pg/mL (0-125) H Total Protein 5.6 G/DL (6.4-8.2) L Albumin 1.5 G/DL (3.4-5.0) L Globulin 4.1 g/dL Random Vancomycin Level 14.5 ug/mL Plan Problems: (1) Wound, open, hip or thigh Assessment & Plan: 62M here for medical evaluation and management. has large right lateral hip wound after episode of soft tissue infection requiring large debridement. wound has been managed at outside facility and will be managed by surgery while in hospital. when VAC removed wound was evaluated. good granulation tissue over large area of debridement. no tissues currently needing debridement. no drainage. no signs of active infection -keep wound clean. continue with VAC q3days at 100mmHg. -will monitor wound with VAC changes. -will do debridement as necessary. thank you for this consultation and allowing me to participate in patients care. will follow with Mauricio Abel Aug 20, 2017 11:07
[2017-08-20] MEDS ORDERED: Zolpidem 5mg tab GT PRN (11:30)
[2017-08-20] MEDS ORDERED: Potassium Phosphate 20 MM in NS 275 ML IV ONE (11:30)
[2017-08-20] MEDS ORDERED: Potassium Chloride 40 MEQ in Sodium Chloride 500ML 550 ML IVPB ONE (11:30)
[2017-08-20] MEDS ORDERED: Miralax 17gm pkt GT PRN (11:45)
--- NOTE | 2017-08-20 12:51 | Infectious Diseases Prog Note ---
Assessment/Plan Assessment/Plan A: Recent necrotizing fascitis of R hip ? Mastoiditis Fungal UTI Acute renal failure CKD History of facial lymphoma Anemia VRE colonization P: discontinue Vancomycin & Zosyn resume Cefepime, start on Fluconazole Subjective ROS Limited/Unobtainable: Yes Cardiovascular: Reports: other - Right Tray catheter was placed Gastrointestinal/Abdominal: Reports: other - coffee ground vomiting, NG tube placed Genitourinary: Reports: other - started on HD yesterday Allergies: Coded Allergies: No Known Allergies (Unverified , 08/17/17) Objective Vital Signs Last 24 Hour Vital Signs Date Time Temp Pulse Resp B/P (MAP) Pulse Ox O2 Delivery O2 Flow Rate FiO2 08/20/17 12:00 97.6 63 17 135/103 100 Room Air 08/20/17 12:00 62 08/20/17 11:00 67 15 120/102 99 Room Air 08/20/17 10:00 60 15 126/110 100 Room Air 08/20/17 09:00 61 15 132/115 100 Room Air 08/20/17 08:00 60 08/20/17 08:00 97.7 63 17 127/56 99 Room Air 08/20/17 07:00 65 15 135/47 98 Room Air 08/20/17 06:00 58 14 115/95 100 Room Air 08/20/17 05:00 64 16 127/104 98 Room Air 08/20/17 04:00 97.6 61 17 131/104 100 Room Air 08/20/17 04:00 61 08/20/17 03:00 56 15 131/112 97 Room Air 08/20/17 02:00 63 16 128/105 97 Room Air 08/20/17 01:00 59 19 128/46 98 Room Air 08/20/17 00:00 67 08/20/17 00:00 97.8 62 16 88/39 97 Room Air 08/19/17 23:00 66 22 97/65 95 Room Air 08/19/17 22:00 92 21 119/65 95 Room Air 08/19/17 21:00 69 13 126/45 99 Room Air 08/19/17 20:00 97.6 64 12 119/102 100 Room Air 08/19/17 20:00 64 08/19/17 19:00 53 19 121/39 100 Room Air 08/19/17 18:00 59 18 117/48 100 Room Air 08/19/17 17:00 54 18 110/46 100 Room Air 08/19/17 16:00 62 08/19/17 16:00 97.7 61 16 99/48 100 Room Air 08/19/17 15:00 61 14 119/40 100 Room Air 08/19/17 14:00 64 19 117/101 100 Room Air 08/19/17 13:00 63 18 103/52 100 Room Air Height (Feet): 5 Height (Inches): 7.00 Weight (Pounds): 105 HEENT: other - right facial deformity Respiratory/Chest: lungs clear Cardiovascular: normal rate, other - Portocath, RIJ Tray Abdomen: soft, non tender, other - NG to suction Extremities: no edema Skin: other - bruises Neurologic/Psychiatric: other - opens eyes Musculoskeletal: atrophy Microbiology Date/Time Source Procedure Growth Status 08/17/17 18:32 Blood Blood Culture - Preliminary NO GROWTH AFTER 48 HOURS Resulted 08/17/17 18:32 Blood Blood Culture - Preliminary NO GROWTH AFTER 48 HOURS Resulted 08/17/17 21:08 Nasal Nares MRSA Culture - Final NO METHICILLIN RESISTANT STAPH AUREUS... 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 Complete Laboratory Tests Test 08/19/17 15:40 08/20/17 04:00 White Blood Count Pending 6.5 K/UL (4.8-10.8) Lymphocytes Pending Total Protein (PEP) Pending Albumin (PEP) Pending Globulin (PEP) Pending Albumin/Globulin Ratio Pending 0.4 (1.0-2.7) L Brqgq-3-Apauclqnp Pending Qbuak-6-Zhxaktuyz Pending Beta Globulins Pending Beta Gamma Globulin Pending PEP Abnormal Protein Bands Pending Protein Electrophoresis Interpret Pending Percent CD3 Cells Pending Absolute CD3 Count Pending Percent CD4 Cells Pending Absolute CD4 Count Pending T-Lymphocyte CD4/CD8 Ratio Pending Percent CD8 Cells Pending Absolute CD8 Count Pending Red Blood Count 2.87 M/UL (4.70-6.10) L Hemoglobin 9.3 G/DL (14.2-18.0) L Hematocrit 27.4 % (42.0-52.0) L Mean Corpuscular Volume 96 FL (80-99) Mean Corpuscular Hemoglobin 32.4 PG (27.0-31.0) H Mean Corpuscular Hemoglobin Concent 33.9 G/DL (32.0-36.0) Red Cell Distribution Width 16.3 % (11.6-14.8) H Platelet Count 167 K/UL (150-450) Mean Platelet Volume 5.5 FL (6.5-10.1) L Neutrophils (%) (Auto) 77.4 % (45.0-75.0) H Lymphocytes (%) (Auto) 6.4 % (20.0-45.0) L Monocytes (%) (Auto) 13.8 % (1.0-10.0) H Eosinophils (%) (Auto) 1.6 % (0.0-3.0) Basophils (%) (Auto) 0.7 % (0.0-2.0) Prothrombin Time 25.5 SEC (9.30-11.50) H Prothromb Time International Ratio 2.4 (0.9-1.1) H Activated Partial Thromboplast Time 54 SEC (23-33) H Urine Eosinophils None seen Sodium Level 151 MMOL/L (136-145) H Potassium Level 3.0 MMOL/L (3.5-5.1) L Chloride Level 111 MMOL/L (98-107) H Carbon Dioxide Level 36 MMOL/L (21-32) H Anion Gap 4 mmol/L (5-15) L Blood Urea Nitrogen 22 mg/dL (7-18) H Creatinine 2.7 MG/DL (0.55-1.30) #H Estimat Glomerular Filtration Rate 24.2 mL/min (>60) Glucose Level 137 MG/DL (74-106) H Uric Acid 2.3 MG/DL (2.6-7.2) L Calcium Level 8.0 MG/DL (8.5-10.1) L Phosphorus Level 1.6 MG/DL (2.5-4.9) L Magnesium Level 1.9 MG/DL (1.8-2.4) Total Bilirubin 0.4 MG/DL (0.2-1.0) Gamma Glutamyl Transpeptidase 37 U/L (5-85) Aspartate Amino Transf (AST/SGOT) 79 U/L (15-37) H Alanine Aminotransferase (ALT/SGPT) 48 U/L (12-78) Alkaline Phosphatase 72 U/L (46-116) Ammonia 9 umol/L (11-32) L Troponin I 0.038 ng/mL (0.000-0.056) C-Reactive Protein, Quantitative 6.0 mg/dL (0.00-0.90) H Pro-B-Type Natriuretic Peptide 7821 pg/mL (0-125) H Total Protein 5.6 G/DL (6.4-8.2) L Albumin 1.5 G/DL (3.4-5.0) L Globulin 4.1 g/dL Random Vancomycin Level 14.5 ug/mL Current Medications Medications (Trade) Dose Ordered Sig/Srini Route PRN Reason Start Time Stop Time Status Last Admin Dose Admin Acetaminophen (Tylenol) 650 mg Q4H PRN ORAL fever 08/17/17 23:00 09/16/17 22:59 Chlorhexidine Gluconate (Sandra-Hex 2%) 1 applic DAILY@2000 TOPIC 08/18/17 20:00 09/17/17 19:59 08/19/17 20:32 Clonidine HCl (Catapres) 0.1 mg Q4H PRN GT For High Blood Pressure 08/20/17 11:30 09/16/17 22:59 Dextrose 1,000 ml @ 50 mls/hr Q20H IV 08/20/17 09:45 09/19/17 09:44 08/20/17 10:04 Dextrose (Dextrose 50%) STAT PRN IV Hypoglycemia 08/17/17 23:00 09/16/17 22:59 Heparin Sodium (Porcine) (Heparin 5000 units/ml) 5,000 units EVERY 12 HOURS SUBQ 08/18/17 09:00 09/17/17 08:59 08/20/17 08:58 Levetiracetam 100 ml @ 400 mls/hr Q12HR IVPB 08/19/17 13:30 09/18/17 13:29 08/20/17 08:55 Levothyroxine Sodium (Synthroid) 50 mcg ACBREAKFAST GT 08/21/17 06:30 09/17/17 06:29 Lorazepam (Ativan 2mg/ml 1ml) 0.5 mg Q4H PRN IV For Anxiety 08/17/17 23:00 08/24/17 22:59 Lorazepam (Ativan 2mg/ml 1ml) 1 mg Q4H PRN IV seizure 08/18/17 15:00 08/25/17 14:59 Morphine Sulfate (Morphine Sulfate) 1 mg Q4H PRN IVP For Pain 08/17/17 23:00 08/24/17 22:59 Ondansetron HCl (Zofran) 4 mg Q6H PRN IVP Nausea & Vomiting 08/17/17 23:00 09/16/17 22:59 Pantoprazole 80 mg/Sodium Chloride 250 ml @ 25 mls/hr Q10H IV 08/19/17 13:30 09/18/17 13:29 08/20/17 10:04 Piperacillin Sod/ Tazobactam Sod 2.25 gm/Dextrose 55 ml @ 110 mls/hr Q8H IVPB 08/18/17 09:00 08/25/17 08:59 08/20/17 10:04 Polyethylene Glycol (Miralax) 17 gm HSPRN PRN GT Constipation 08/20/17 11:45 09/16/17 22:59 Potassium Phosphate 20 mm/ Sodium Chloride 281.6667 ml @ 46.944 m... ONCE ONCE IV 08/20/17 11:30 08/20/17 17:29 08/20/17 11:42 Zolpidem Tartrate (Ambien) 5 mg HSPRN PRN GT Insomnia 08/20/17 11:30 08/24/17 22:59 TOYA ENGLISH Aug 20, 2017 12:51
--- NOTE | 2017-08-20 13:42 | General Progress Note ---
Assessment/Plan Problem List: (1) Lymphoma ICD Codes: C85.90 - Non-Hodgkin lymphoma, unspecified, unspecified site SNOMED: 766842201 (2) Anemia ICD Codes: D64.9 - Anemia, unspecified SNOMED: 725629507 (3) Hypothyroid ICD Codes: E03.9 - Hypothyroidism, unspecified SNOMED: 68432242 (4) Malnutrition ICD Codes: E46 - Unspecified protein-calorie malnutrition SNOMED: 28437344 (5) Altered level of consciousness ICD Codes: R40.4 - Transient alteration of awareness SNOMED: 7119094 (6) Renal failure ICD Codes: N19 - Unspecified kidney failure SNOMED: 37750691 (7) Cellulitis ICD Codes: L03.90 - Cellulitis, unspecified SNOMED: 830458929 Status: unchanged Assessment/Plan ng ot pt diet cbc bmp am Subjective Constitutional: Reports: weakness Allergies: Coded Allergies: No Known Allergies (Unverified , 08/17/17) All Systems: reviewed and negative except above Subjective ng lethargic in icu Objective Last 24 Hour Vital Signs Date Time Temp Pulse Resp B/P (MAP) Pulse Ox O2 Delivery O2 Flow Rate FiO2 08/20/17 13:00 63 16 120/106 99 Room Air 08/20/17 12:00 97.6 63 17 135/103 100 Room Air 08/20/17 12:00 62 08/20/17 11:00 67 15 120/102 99 Room Air 08/20/17 10:00 60 15 126/110 100 Room Air 08/20/17 09:00 61 15 132/115 100 Room Air 08/20/17 08:00 60 08/20/17 08:00 97.7 63 17 127/56 99 Room Air 08/20/17 07:00 65 15 135/47 98 Room Air 08/20/17 06:00 58 14 115/95 100 Room Air 08/20/17 05:00 64 16 127/104 98 Room Air 08/20/17 04:00 97.6 61 17 131/104 100 Room Air 08/20/17 04:00 61 08/20/17 03:00 56 15 131/112 97 Room Air 08/20/17 02:00 63 16 128/105 97 Room Air 08/20/17 01:00 59 19 128/46 98 Room Air 08/20/17 00:00 67 08/20/17 00:00 97.8 62 16 88/39 97 Room Air 08/19/17 23:00 66 22 97/65 95 Room Air 08/19/17 22:00 92 21 119/65 95 Room Air 08/19/17 21:00 69 13 126/45 99 Room Air 08/19/17 20:00 97.6 64 12 119/102 100 Room Air 08/19/17 20:00 64 08/19/17 19:00 53 19 121/39 100 Room Air 08/19/17 18:00 59 18 117/48 100 Room Air 08/19/17 17:00 54 18 110/46 100 Room Air 08/19/17 16:00 62 08/19/17 16:00 97.7 61 16 99/48 100 Room Air 08/19/17 15:00 61 14 119/40 100 Room Air 08/19/17 14:00 64 19 117/101 100 Room Air Intake and Output 08/20/17 08/21/17 19:00 07:00 Intake Total 376.944 ml Output Total 45 ml Balance 331.944 ml IV Total 376.944 ml Output Urine Total 45 ml Laboratory Tests 08/19/17 15:40: White Blood Count [Pending], Lymphocytes [Pending], Total Protein (PEP) [Pending ], Albumin (PEP) [Pending], Globulin (PEP) [Pending], Albumin/Globulin Ratio [ Pending], Dwfui-6-Smbwhdzkz [Pending], Crutm-1-Hjrudynys [Pending], Beta Globulins [Pending], Beta Gamma Globulin [Pending], PEP Abnormal Protein Bands [ Pending], Protein Electrophoresis Interpret [Pending], Percent CD3 Cells [ Pending], Absolute CD3 Count [Pending], Percent CD4 Cells [Pending], Absolute CD4 Count [Pending], T-Lymphocyte CD4/CD8 Ratio [Pending], Percent CD8 Cells [ Pending], Absolute CD8 Count [Pending] 08/20/17 04:00: White Blood Count 6.5, Albumin/Globulin Ratio 0.4L, Red Blood Count 2.87L, Hemoglobin 9.3L, Hematocrit 27.4L, Mean Corpuscular Volume 96, Mean Corpuscular Hemoglobin 32.4H, Mean Corpuscular Hemoglobin Concent 33.9, Red Cell Distribution Width 16.3H, Platelet Count 167, Mean Platelet Volume 5.5L, Neutrophils (%) (Auto) 77.4H, Lymphocytes (%) (Auto) 6.4L, Monocytes (%) (Auto) 13.8H, Eosinophils (%) (Auto) 1.6, Basophils (%) (Auto) 0.7, Prothrombin Time 25.5H, Prothromb Time International Ratio 2.4H, Activated Partial Thromboplast Time 54H, Urine Eosinophils None seen, Sodium Level 151H, Potassium Level 3.0L, Chloride Level 111H, Carbon Dioxide Level 36H, Anion Gap 4L, Blood Urea Nitrogen 22H, Creatinine 2.7#H, Estimat Glomerular Filtration Rate 24.2, Glucose Level 137H, Uric Acid 2.3L, Calcium Level 8.0L, Phosphorus Level 1.6L, Magnesium Level 1.9, Total Bilirubin 0.4, Gamma Glutamyl Transpeptidase 37, Aspartate Amino Transf (AST/SGOT) 79H, Alanine Aminotransferase (ALT/SGPT) 48, Alkaline Phosphatase 72, Ammonia 9L, Troponin I 0.038, C-Reactive Protein, Quantitative 6.0H, Pro-B-Type Natriuretic Peptide 7821H, Total Protein 5.6L, Albumin 1.5L, Globulin 4.1, Random Vancomycin Level 14.5 Height (Feet): 5 Height (Inches): 7.00 Weight (Pounds): 105 General Appearance: lethargic EENT: normal ENT inspection Neck: normal alignment Cardiovascular: normal peripheral pulses, normal rate, regular rhythm Respiratory/Chest: chest wall non-tender, lungs clear, normal breath sounds Abdomen: normal bowel sounds, non tender, soft Extremities: normal range of motion Edema: no edema noted Arm (L), no edema noted Arm (R), no edema noted Leg (L), no edema noted Leg (R), no edema noted Pedal (L), no edema noted Pedal (R), no edema noted Generalized Neurologic: motor weakness Skin: normal pigmentation, warm/dry ROBERT BANERJEE Aug 20, 2017 13:42
--- NOTE | 2017-08-20 13:51 | Neurology Progress Note ---
Interim History Interim History ROS Limited/Unobtainable: Yes Complaints: none Events: much less arm jerking UGI bleed Objective Physical Exam Last Vital Signs Date Time Temp Pulse Resp B/P (MAP) Pulse Ox O2 Delivery O2 Flow Rate FiO2 08/20/17 13:00 63 16 120/106 99 Room Air 08/20/17 12:00 97.6 08/17/17 22:30 100.0 Laboratory Tests Test 08/19/17 15:40 08/20/17 04:00 White Blood Count Pending 6.5 K/UL (4.8-10.8) Lymphocytes Pending Total Protein (PEP) Pending Albumin (PEP) Pending Globulin (PEP) Pending Albumin/Globulin Ratio Pending 0.4 (1.0-2.7) L Fefyc-0-Cpapjlzil Pending Sgewp-4-Oynkhoxoc Pending Beta Globulins Pending Beta Gamma Globulin Pending PEP Abnormal Protein Bands Pending Protein Electrophoresis Interpret Pending Percent CD3 Cells Pending Absolute CD3 Count Pending Percent CD4 Cells Pending Absolute CD4 Count Pending T-Lymphocyte CD4/CD8 Ratio Pending Percent CD8 Cells Pending Absolute CD8 Count Pending Red Blood Count 2.87 M/UL (4.70-6.10) L Hemoglobin 9.3 G/DL (14.2-18.0) L Hematocrit 27.4 % (42.0-52.0) L Mean Corpuscular Volume 96 FL (80-99) Mean Corpuscular Hemoglobin 32.4 PG (27.0-31.0) H Mean Corpuscular Hemoglobin Concent 33.9 G/DL (32.0-36.0) Red Cell Distribution Width 16.3 % (11.6-14.8) H Platelet Count 167 K/UL (150-450) Mean Platelet Volume 5.5 FL (6.5-10.1) L Neutrophils (%) (Auto) 77.4 % (45.0-75.0) H Lymphocytes (%) (Auto) 6.4 % (20.0-45.0) L Monocytes (%) (Auto) 13.8 % (1.0-10.0) H Eosinophils (%) (Auto) 1.6 % (0.0-3.0) Basophils (%) (Auto) 0.7 % (0.0-2.0) Prothrombin Time 25.5 SEC (9.30-11.50) H Prothromb Time International Ratio 2.4 (0.9-1.1) H Activated Partial Thromboplast Time 54 SEC (23-33) H Urine Eosinophils None seen Sodium Level 151 MMOL/L (136-145) H Potassium Level 3.0 MMOL/L (3.5-5.1) L Chloride Level 111 MMOL/L (98-107) H Carbon Dioxide Level 36 MMOL/L (21-32) H Anion Gap 4 mmol/L (5-15) L Blood Urea Nitrogen 22 mg/dL (7-18) H Creatinine 2.7 MG/DL (0.55-1.30) #H Estimat Glomerular Filtration Rate 24.2 mL/min (>60) Glucose Level 137 MG/DL (74-106) H Uric Acid 2.3 MG/DL (2.6-7.2) L Calcium Level 8.0 MG/DL (8.5-10.1) L Phosphorus Level 1.6 MG/DL (2.5-4.9) L Magnesium Level 1.9 MG/DL (1.8-2.4) Total Bilirubin 0.4 MG/DL (0.2-1.0) Gamma Glutamyl Transpeptidase 37 U/L (5-85) Aspartate Amino Transf (AST/SGOT) 79 U/L (15-37) H Alanine Aminotransferase (ALT/SGPT) 48 U/L (12-78) Alkaline Phosphatase 72 U/L (46-116) Ammonia 9 umol/L (11-32) L Troponin I 0.038 ng/mL (0.000-0.056) C-Reactive Protein, Quantitative 6.0 mg/dL (0.00-0.90) H Pro-B-Type Natriuretic Peptide 7821 pg/mL (0-125) H Total Protein 5.6 G/DL (6.4-8.2) L Albumin 1.5 G/DL (3.4-5.0) L Globulin 4.1 g/dL Random Vancomycin Level 14.5 ug/mL General: well developed, no acute distress, other - cochectic Head: normocophalic, atraumatic, other - facial deformity Neurologic Exam Mental Status: awake, other - more responcive Speech: other - nonverbal Language: other Cranial Nerve II: visual pleitez, no papilledema Cranial Nerves III, IV, : PERRLA, EOMI, pupils Cranial Nerve V: normal facial sensations Cranial Nerve VII: other - asymmetry Cranial Nerve VIII: no nystagmus Cranial Nerve IX: other - poor gag Cranial Nerve XI: other Cranial Nerve XII: no tongue atrophy/fasciculations Motor System: no muscle wasting, other - no jerking noted Sensory: other Coordination: other Deep Tendon Reflexes: 0 bicep (L), 0 bicep (R), 0 tricep (L), 0 tricep (R), 0 brachioradialis (L), 0 brachioradialis (R), 0 knee (L), 0 knee (R), 0 ankle (L) , 0 ankle (R) Reflexes: mute plantar (L), mute plantar (R) Impression/Recommendations Problems: (1) new onset of verbal unresponsiveness and generalised myoclonus, r.o seizure activity (2) r/o meningeal carcinomatosis (3) Acute renal failure (4) Metabolic acidosis Status: unchanged Recommendations #[id number] LP pend MRI brain pend [id number] d/w staff ESEQUIEL JEFFERSON Aug 20, 2017 13:51
[2017-08-20] MEDS ORDERED: Cefepime HCl 1 GM in D5W 55 ML IVPB ONE (14:00)
--- NOTE | 2017-08-20 14:50 | Nephrology Progress Note ---
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 Avoid nephrotoxics- Neuro eval dialysis cath for dialysis , done transfusion as needed hold [facility] [place] now check level IV protonix Subjective ROS Limited/Unobtainable: No Constitutional: Reports: malaise Objective Objective Last 24 Hour Vital Signs Date Time Temp Pulse Resp B/P (MAP) Pulse Ox O2 Delivery O2 Flow Rate FiO2 08/20/17 14:00 63 16 123/102 98 Room Air 08/20/17 13:00 63 16 120/106 99 Room Air 08/20/17 12:00 97.6 63 17 135/103 100 Room Air 08/20/17 12:00 62 08/20/17 11:00 67 15 120/102 99 Room Air 08/20/17 10:00 60 15 126/110 100 Room Air 08/20/17 09:00 61 15 132/115 100 Room Air 08/20/17 08:00 60 08/20/17 08:00 97.7 63 17 127/56 99 Room Air 08/20/17 07:00 65 15 135/47 98 Room Air 08/20/17 06:00 58 14 115/95 100 Room Air 08/20/17 05:00 64 16 127/104 98 Room Air 08/20/17 04:00 97.6 61 17 131/104 100 Room Air 08/20/17 04:00 61 08/20/17 03:00 56 15 131/112 97 Room Air 08/20/17 02:00 63 16 128/105 97 Room Air 08/20/17 01:00 59 19 128/46 98 Room Air 08/20/17 00:00 67 08/20/17 00:00 97.8 62 16 88/39 97 Room Air 08/19/17 23:00 66 22 97/65 95 Room Air 08/19/17 22:00 92 21 119/65 95 Room Air 08/19/17 21:00 69 13 126/45 99 Room Air 08/19/17 20:00 97.6 64 12 119/102 100 Room Air 08/19/17 20:00 64 08/19/17 19:00 53 19 121/39 100 Room Air 08/19/17 18:00 59 18 117/48 100 Room Air 08/19/17 17:00 54 18 110/46 100 Room Air 08/19/17 16:00 62 08/19/17 16:00 97.7 61 16 99/48 100 Room Air 08/19/17 15:00 61 14 119/40 100 Room Air Intake and Output 08/20/17 08/21/17 19:00 07:00 Intake Total 448.888 ml Output Total 55 ml Balance 393.888 ml IV Total 448.888 ml Output Urine Total 55 ml Laboratory Tests 08/19/17 15:40: White Blood Count [Pending], Lymphocytes [Pending], Total Protein (PEP) [Pending ], Albumin (PEP) [Pending], Globulin (PEP) [Pending], Albumin/Globulin Ratio [ Pending], Gifvp-1-Gcodbzpjc [Pending], Euifx-3-Puheaeqen [Pending], Beta Globulins [Pending], Beta Gamma Globulin [Pending], PEP Abnormal Protein Bands [ Pending], Protein Electrophoresis Interpret [Pending], Percent CD3 Cells [ Pending], Absolute CD3 Count [Pending], Percent CD4 Cells [Pending], Absolute CD4 Count [Pending], T-Lymphocyte CD4/CD8 Ratio [Pending], Percent CD8 Cells [ Pending], Absolute CD8 Count [Pending] 08/20/17 04:00: White Blood Count 6.5, Albumin/Globulin Ratio 0.4L, Red Blood Count 2.87L, Hemoglobin 9.3L, Hematocrit 27.4L, Mean Corpuscular Volume 96, Mean Corpuscular Hemoglobin 32.4H, Mean Corpuscular Hemoglobin Concent 33.9, Red Cell Distribution Width 16.3H, Platelet Count 167, Mean Platelet Volume 5.5L, Neutrophils (%) (Auto) 77.4H, Lymphocytes (%) (Auto) 6.4L, Monocytes (%) (Auto) 13.8H, Eosinophils (%) (Auto) 1.6, Basophils (%) (Auto) 0.7, Prothrombin Time 25.5H, Prothromb Time International Ratio 2.4H, Activated Partial Thromboplast Time 54H, Urine Eosinophils None seen, Sodium Level 151H, Potassium Level 3.0L, Chloride Level 111H, Carbon Dioxide Level 36H, Anion Gap 4L, Blood Urea Nitrogen 22H, Creatinine 2.7#H, Estimat Glomerular Filtration Rate 24.2, Glucose Level 137H, Uric Acid 2.3L, Calcium Level 8.0L, Phosphorus Level 1.6L, Magnesium Level 1.9, Total Bilirubin 0.4, Gamma Glutamyl Transpeptidase 37, Aspartate Amino Transf (AST/SGOT) 79H, Alanine Aminotransferase (ALT/SGPT) 48, Alkaline Phosphatase 72, Ammonia 9L, Troponin I 0.038, C-Reactive Protein, Quantitative 6.0H, Pro-B-Type Natriuretic Peptide 7821H, Total Protein 5.6L, Albumin 1.5L, Globulin 4.1, Random Vancomycin Level 14.5 Height (Feet): 5 Height (Inches): 7.00 Weight (Pounds): 105 General Appearance: no apparent distress Objective PE not changed RYAN MCCLOUD Aug 20, 2017 14:50
--- NOTE | 2017-08-20 16:25 | GI Progress Note ---
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 Kitchen. Assessment/Plan EGD canceled today due to elevated INR and hypernatremia and rescheduled for tomorrow. - NGT to LIS, NPO+ IVFs - hold all blood thinners anemia work up reviewed start PPI gtt monitor H&H, prn transfusion abx fu labs Subjective Subjective limited Objective Last 24 Hour Vital Signs Date Time Temp Pulse Resp B/P (MAP) Pulse Ox O2 Delivery O2 Flow Rate FiO2 08/20/17 16:00 97.7 59 17 127/108 100 Room Air 08/20/17 15:00 60 16 120/102 99 Room Air 08/20/17 14:00 63 16 123/102 98 Room Air 08/20/17 13:00 63 16 120/106 99 Room Air 08/20/17 12:00 97.6 63 17 135/103 100 Room Air 08/20/17 12:00 62 08/20/17 11:00 67 15 120/102 99 Room Air 08/20/17 10:00 60 15 126/110 100 Room Air 08/20/17 09:00 61 15 132/115 100 Room Air 08/20/17 08:00 60 08/20/17 08:00 97.7 63 17 127/56 99 Room Air 08/20/17 07:00 65 15 135/47 98 Room Air 08/20/17 06:00 58 14 115/95 100 Room Air 08/20/17 05:00 64 16 127/104 98 Room Air 08/20/17 04:00 97.6 61 17 131/104 100 Room Air 08/20/17 04:00 61 08/20/17 03:00 56 15 131/112 97 Room Air 08/20/17 02:00 63 16 128/105 97 Room Air 08/20/17 01:00 59 19 128/46 98 Room Air 08/20/17 00:00 67 08/20/17 00:00 97.8 62 16 88/39 97 Room Air 08/19/17 23:00 66 22 97/65 95 Room Air 08/19/17 22:00 92 21 119/65 95 Room Air 08/19/17 21:00 69 13 126/45 99 Room Air 08/19/17 20:00 97.6 64 12 119/102 100 Room Air 08/19/17 20:00 64 08/19/17 19:00 53 19 121/39 100 Room Air 08/19/17 18:00 59 18 117/48 100 Room Air 08/19/17 17:00 54 18 110/46 100 Room Air Intake and Output 08/20/17 08/21/17 19:00 07:00 Intake Total 448.888 ml Output Total 65 ml Balance 383.888 ml IV Total 448.888 ml Output Urine Total 65 ml # Bowel Movements 1 Laboratory Tests Test 08/20/17 04:00 White Blood Count 6.5 K/UL (4.8-10.8) Red Blood Count 2.87 M/UL (4.70-6.10) L Hemoglobin 9.3 G/DL (14.2-18.0) L Hematocrit 27.4 % (42.0-52.0) L Mean Corpuscular Volume 96 FL (80-99) Mean Corpuscular Hemoglobin 32.4 PG (27.0-31.0) H Mean Corpuscular Hemoglobin Concent 33.9 G/DL (32.0-36.0) Red Cell Distribution Width 16.3 % (11.6-14.8) H Platelet Count 167 K/UL (150-450) Mean Platelet Volume 5.5 FL (6.5-10.1) L Neutrophils (%) (Auto) 77.4 % (45.0-75.0) H Lymphocytes (%) (Auto) 6.4 % (20.0-45.0) L Monocytes (%) (Auto) 13.8 % (1.0-10.0) H Eosinophils (%) (Auto) 1.6 % (0.0-3.0) Basophils (%) (Auto) 0.7 % (0.0-2.0) Prothrombin Time 25.5 SEC (9.30-11.50) H Prothromb Time International Ratio 2.4 (0.9-1.1) H Activated Partial Thromboplast Time 54 SEC (23-33) H Urine Eosinophils None seen Sodium Level 151 MMOL/L (136-145) H Potassium Level 3.0 MMOL/L (3.5-5.1) L Chloride Level 111 MMOL/L (98-107) H Carbon Dioxide Level 36 MMOL/L (21-32) H Anion Gap 4 mmol/L (5-15) L Blood Urea Nitrogen 22 mg/dL (7-18) H Creatinine 2.7 MG/DL (0.55-1.30) #H Estimat Glomerular Filtration Rate 24.2 mL/min (>60) Glucose Level 137 MG/DL (74-106) H Uric Acid 2.3 MG/DL (2.6-7.2) L Calcium Level 8.0 MG/DL (8.5-10.1) L Phosphorus Level 1.6 MG/DL (2.5-4.9) L Magnesium Level 1.9 MG/DL (1.8-2.4) Total Bilirubin 0.4 MG/DL (0.2-1.0) Gamma Glutamyl Transpeptidase 37 U/L (5-85) Aspartate Amino Transf (AST/SGOT) 79 U/L (15-37) H Alanine Aminotransferase (ALT/SGPT) 48 U/L (12-78) Alkaline Phosphatase 72 U/L (46-116) Ammonia 9 umol/L (11-32) L Troponin I 0.038 ng/mL (0.000-0.056) C-Reactive Protein, Quantitative 6.0 mg/dL (0.00-0.90) H Pro-B-Type Natriuretic Peptide 7821 pg/mL (0-125) H Total Protein 5.6 G/DL (6.4-8.2) L Albumin 1.5 G/DL (3.4-5.0) L Globulin 4.1 g/dL Albumin/Globulin Ratio 0.4 (1.0-2.7) L Random Vancomycin Level 14.5 ug/mL Height (Feet): 5 Height (Inches): 7.00 Weight (Pounds): 105 General Appearance: WD/WN, no apparent distress, alert Cardiovascular: normal rate Respiratory/Chest: normal breath sounds, no respiratory distress Abdominal Exam: normal bowel sounds, non tender, soft Extremities: non-tender Lou Jarquin N.P. Aug 20, 2017 16:25
[2017-08-20] MEDS ORDERED: Phytonadione 1 MG in D5W 55 ML IVPB ONE (17:30)
[2017-08-20] MEDS: Dyna-Hex 2% Top Sol 2oz TOPIC SCH (20:40)
[2017-08-21] VITALS (24 sets, daily range): BP systolic 114–144; BP diastolic 33–120
[2017-08-21 05:29] LABS: INR 1.5 (0.9-1.1)
[2017-08-21] MEDS: Pantoprazole 80 MG in NS 250 ML IV SCH (05:44)
[2017-08-21 05:49] LABS: ALANINE AMINOTRANSFERASE 52 U/L (12-78); ALBUMIN/GLOBULIN RATIO 0.3 (1.0-2.7); ANION GAP 9 mmol/L (5-15); ASPARTATE AMINO TRANSFERASE 82 U/L (15-37); CALCIUM 7.6 MG/DL (8.5-10.1); CARBON DIOXIDE 29 MMOL/L (21-32); CHLORIDE 109 MMOL/L (98-107); GLOMERULAR FILTRATION RATE 15.4 mL/min (>60); MAGNESIUM 1.7 MG/DL (1.8-2.4); PHOSPHORUS 4.3 MG/DL (2.5-4.9); POTASSIUM 3.3 MMOL/L (3.5-5.1); SODIUM 147 MMOL/L (136-145); THYROID STIMULATING HORMONE 4.217 uiU/mL (0.358-3.740); TOTAL PROTEIN 5.4 G/DL (6.4-8.2)
[2017-08-21 05:50] LABS: CRP QUANT 9.2 mg/dL (0.00-0.90); URIC ACID 3.4 MG/DL (2.6-7.2)
[2017-08-21 07:50] LABS: BASOPHILS % (AUTO) 0.5 % (0.0-2.0); EOSINOPHILS % (AUTO) 1.9 % (0.0-3.0); LYMPHOCYTES % (AUTO) 5.7 % (20.0-45.0); MEAN CORPUSCULAR HEMOGLOBIN 30.5 PG (27.0-31.0); MEAN CORPUSCULAR HGB CONC 31.7 G/DL (32.0-36.0); MEAN CORPUSCULAR VOLUME 96 FL (80-99); MEAN PLATELET VOLUME 5.7 FL (6.5-10.1); MONOCYTES % (AUTO) 10.4 % (1.0-10.0); NEUTROPHILS % (AUTO) 81.4 % (45.0-75.0); PLATELET COUNT 146 K/UL (150-450); RED BLOOD COUNT 2.99 M/UL (4.70-6.10); RED CELL DISTRIBUTION WIDTH 17.7 % (11.6-14.8); WHITE BLOOD COUNT 6.7 K/UL (4.8-10.8)
--- NOTE | 2017-08-21 08:32 | 48 Hour Post Anesthesia Eval ---
Post Anesthesia Evaluation Procedure: EGD with biopsy Date of Evaluation: Aug 21, 2017 Time of Evaluation: 11:30 Blood Pressure Systolic: 125 0: 50 Pulse Rate: 55 Respiratory Rate: 22 Temperature (Fahrenheit): 97.5 O2 Sat by Pulse Oximetry: 100 Airway: patent Nausea: No Vomiting: No Pain Intensity: 0 Hydration Status: adequate Mental Status/LOC: patient returned to baseline Follow-up care needed: patient intructions given Dyan Fried CRNA Aug 21, 2017 08:32
--- NOTE | 2017-08-21 08:32 | Immediate Post-Op Evaluation ---
Immediate Post-Op Evalulation Immediate Post-Op Evalulation Procedure: EGD with biopsy Date of Evaluation: Aug 21, 2017 Time of Evaluation: 11:14 IV Fluids: NS 50 ml Blood Products: 0 Estimated Blood Loss: 0 Urinary Output: 0 Blood Pressure Systolic: 126 Blood Pressure Diastolic: 48 Pulse Rate: 52 Respiratory Rate: 22 O2 Sat by Pulse Oximetry: 100 Temperature (Fahrenheit): 97.6 Pain Score (1-10): 0 Nausea: No Vomiting: No Complications none Patient Status: awake, reacts, patent Hydration Status: adequate Given Within 1 Hr of Incision: Dyan Haynes CRNA Aug 21, 2017 08:32
[2017-08-21] MEDS: Heparin 5000 units/ml inj SUBQ SCH ×2 (09:00→21:00)
[2017-08-21] MEDS: levETIRAcetam 1,000mg/NS100ml 100 ML IVPB SCH ×2 (09:17→21:32)
[2017-08-21 09:20] LABS: A/G RATIO 0.9 (0.7-1.7); ABNORMAL PROTEIN BAND 1 Not Observed g/dL (Not Observed); ALBUMIN 2.5 g/dL (2.9-4.4); ALPHA-1 GLOBULIN 0.2 g/dL (0.0-0.4); ALPHA-2 GLOBULIN 0.7 g/dL (0.4-1.0); BETA GLOBULIN 0.8 g/dL (0.7-1.3); CD3 ABSOLUTE 178 /uL (622-2402); CD4 ABSOLUTE 65 /uL (359-1519); CD8 ABSOLUTE 113 /uL (109-897); GAMMA GLOBULIN 1.1 g/dL (0.4-1.8); GLOBULIN, TOTAL 2.7 g/dL (2.2-3.9); LYMPHOCYTES ABSOLUTE 0.3 x10E3/uL (0.7-3.1); LYMPHS 6 % (Not Estab.); TOTAL PROTEIN 5.2 g/dL (6.0-8.5); WBC 5.9 x10E3/uL (3.4-10.8)
--- NOTE | 2017-08-21 09:54 | Infectious Diseases Prog Note ---
Assessment/Plan Assessment/Plan A: Recent necrotizing fascitis of R hip ? Mastoiditis Fungal UTI Acute renal failure CKD History of facial lymphoma Anemia VRE colonization Encephalopathy P: continue Cefepime & Fluconazole will f/u LP & MRI of brain will f/u EGD Subjective ROS Limited/Unobtainable: Yes Constitutional: Reports: no symptoms Genitourinary: Reports: other - anuric Neurologic: Reports: confusion, other - on restraint Allergies: Coded Allergies: No Known Allergies (Unverified , 08/17/17) Objective Vital Signs Last 24 Hour Vital Signs Date Time Temp Pulse Resp B/P (MAP) Pulse Ox O2 Delivery O2 Flow Rate FiO2 08/21/17 07:00 55 14 137/45 99 Room Air 08/21/17 06:00 59 14 132/53 99 Room Air 08/21/17 05:00 60 15 136/71 99 Room Air 08/21/17 04:00 68 08/21/17 04:00 97.5 61 14 129/103 100 Room Air 08/21/17 03:00 62 16 125/49 100 Room Air 08/21/17 02:00 61 16 141/57 100 Room Air 08/21/17 01:00 61 16 131/49 100 Room Air 08/21/17 00:00 60 08/21/17 00:00 97.7 65 17 138/54 100 Room Air 08/20/17 23:00 60 16 143/115 99 Room Air 08/20/17 22:00 64 17 130/65 100 Room Air 08/20/17 21:00 98.5 59 17 131/55 100 Room Air 08/20/17 20:00 59 08/20/17 20:00 98.5 60 16 122/101 99 Room Air 08/20/17 19:00 60 16 128/115 95 Room Air 08/20/17 18:00 62 16 137/103 95 Room Air 08/20/17 17:00 64 16 139/40 95 Room Air 08/20/17 16:00 97.7 59 17 127/108 100 Room Air 08/20/17 16:00 64 08/20/17 15:00 60 16 120/102 99 Room Air 08/20/17 14:00 63 16 123/102 98 Room Air 08/20/17 13:00 63 16 120/106 99 Room Air 08/20/17 12:00 97.6 63 17 135/103 100 Room Air 08/20/17 12:00 62 08/20/17 11:00 67 15 120/102 99 Room Air 08/20/17 10:00 60 15 126/110 100 Room Air Height (Feet): 5 Height (Inches): 7.00 Weight (Pounds): 104 General Appearance: no acute distress HEENT: other [facility] Cardiovascular: normal rate, other - Poto-cath Abdomen: soft, non tender Extremities: no edema Neurologic/Psychiatric: disoriented Microbiology Date/Time Source Procedure Growth Status 08/18/17 18:00 Urine,Clean Catch Urine Culture - Final Heavenly Albicans Complete Laboratory Tests Test 08/21/17 04:00 08/21/17 05:00 08/21/17 08:00 Urine Eosinophils None seen White Blood Count 6.7 K/UL (4.8-10.8) Red Blood Count 2.99 M/UL (4.70-6.10) L Hemoglobin 9.1 G/DL (14.2-18.0) L Hematocrit 28.9 % (42.0-52.0) L Mean Corpuscular Volume 96 FL (80-99) Mean Corpuscular Hemoglobin 30.5 PG (27.0-31.0) Mean Corpuscular Hemoglobin Concent 31.7 G/DL (32.0-36.0) L Red Cell Distribution Width 17.7 % (11.6-14.8) H Platelet Count 146 K/UL (150-450) L Mean Platelet Volume 5.7 FL (6.5-10.1) L Neutrophils (%) (Auto) 81.4 % (45.0-75.0) H Lymphocytes (%) (Auto) 5.7 % (20.0-45.0) L Monocytes (%) (Auto) 10.4 % (1.0-10.0) H Eosinophils (%) (Auto) 1.9 % (0.0-3.0) Basophils (%) (Auto) 0.5 % (0.0-2.0) Prothrombin Time 16.0 SEC (9.30-11.50) H Prothromb Time International Ratio 1.5 (0.9-1.1) H Activated Partial Thromboplast Time 50 SEC (23-33) H Sodium Level 147 MMOL/L (136-145) H Potassium Level 3.3 MMOL/L (3.5-5.1) L Chloride Level 109 MMOL/L (98-107) H Carbon Dioxide Level 29 MMOL/L (21-32) Anion Gap 9 mmol/L (5-15) Blood Urea Nitrogen 28 mg/dL (7-18) H Creatinine 4.0 MG/DL (0.55-1.30) H Estimat Glomerular Filtration Rate 15.4 mL/min (>60) Glucose Level 97 MG/DL (74-106) Uric Acid 3.4 MG/DL (2.6-7.2) Calcium Level 7.6 MG/DL (8.5-10.1) L Phosphorus Level 4.3 MG/DL (2.5-4.9) Magnesium Level 1.7 MG/DL (1.8-2.4) L Total Bilirubin 0.4 MG/DL (0.2-1.0) Aspartate Amino Transf (AST/SGOT) 82 U/L (15-37) H Alanine Aminotransferase (ALT/SGPT) 52 U/L (12-78) Alkaline Phosphatase 73 U/L (46-116) C-Reactive Protein, Quantitative 9.2 mg/dL (0.00-0.90) H Pro-B-Type Natriuretic Peptide 5683 pg/mL (0-125) H Total Protein 5.4 G/DL (6.4-8.2) L Albumin 1.3 G/DL (3.4-5.0) L Globulin 4.1 g/dL Albumin/Globulin Ratio 0.3 (1.0-2.7) L Thyroid Stimulating Hormone (TSH) 4.217 uiU/mL (0.358-3.740) Random Vancomycin Level 11.8 ug/mL Current Medications Medications (Trade) Dose Ordered Sig/Srini Route PRN Reason Start Time Stop Time Status Last Admin Dose Admin Acetaminophen (Tylenol) 650 mg Q4H PRN ORAL fever 08/17/17 23:00 09/16/17 22:59 Cefepime HCl 500 mg/Dextrose 55 ml @ 110 mls/hr Q24H IV 08/21/17 18:00 08/28/17 17:59 Chlorhexidine Gluconate (Sandra-Hex 2%) 1 applic DAILY@1999 TOPIC 08/18/17 20:00 09/17/17 19:59 08/20/17 20:40 Clonidine HCl (Catapres) 0.1 mg Q4H PRN GT For High Blood Pressure 08/20/17 11:30 09/16/17 22:59 Dextrose 1,000 ml @ 50 mls/hr Q20H IV 08/20/17 09:45 09/19/17 09:44 08/20/17 10:04 Dextrose (Dextrose 50%) STAT PRN IV Hypoglycemia 08/17/17 23:00 09/16/17 22:59 Fluconazole 50 ml @ 50 mls/hr DAILY@1800 IV 08/20/17 14:00 08/27/17 13:59 08/20/17 14:43 Heparin Sodium (Porcine) (Heparin 5000 units/ml) 5,000 units EVERY 12 HOURS SUBQ 08/18/17 09:00 09/17/17 08:59 08/20/17 08:58 Levetiracetam 100 ml @ 400 mls/hr Q12HR IVPB 08/19/17 13:30 09/18/17 13:29 08/21/17 09:17 Levothyroxine Sodium (Synthroid) 50 mcg ACBREAKFAST GT 08/21/17 06:30 09/17/17 06:29 Lorazepam (Ativan 2mg/ml 1ml) 0.5 mg Q4H PRN IV For Anxiety 08/17/17 23:00 08/24/17 22:59 Lorazepam (Ativan 2mg/ml 1ml) 1 mg Q4H PRN IV seizure 08/18/17 15:00 08/25/17 14:59 Magnesium Sulfate 100 ml @ 100 mls/hr ONCE ONCE IVPB 08/21/17 10:30 08/21/17 11:29 Morphine Sulfate (Morphine Sulfate) 1 mg Q4H PRN IVP For Pain 08/17/17 23:00 08/24/17 22:59 Ondansetron HCl (Zofran) 4 mg Q6H PRN IVP Nausea & Vomiting 08/17/17 23:00 09/16/17 22:59 Pantoprazole 80 mg/Sodium Chloride 250 ml @ 25 mls/hr Q10H IV 08/19/17 13:30 09/18/17 13:29 08/21/17 05:44 Polyethylene Glycol (Miralax) 17 gm HSPRN PRN GT Constipation 08/20/17 11:45 09/16/17 22:59 Potassium Chloride (K-Dur) 40 meq ONCE ONCE NG 08/21/17 10:30 08/21/17 10:31 Zolpidem Tartrate (Ambien) 5 mg HSPRN PRN GT Insomnia 08/20/17 11:30 08/24/17 22:59 TOYA ENGLISH Aug 21, 2017 09:54
--- NOTE | 2017-08-21 09:56 | Nephrology Progress Note ---
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 Avoid nephrotoxics- Neuro eval dialysis cath for dialysis , done transfusion as needed hold [facility] [place] for now check level IV protonix Subjective ROS Limited/Unobtainable: No Constitutional: Reports: malaise, weakness Objective Objective Last 24 Hour Vital Signs Date Time Temp Pulse Resp B/P (MAP) Pulse Ox O2 Delivery O2 Flow Rate FiO2 08/21/17 07:00 55 14 137/45 99 Room Air 08/21/17 06:00 59 14 132/53 99 Room Air 08/21/17 05:00 60 15 136/71 99 Room Air 08/21/17 04:00 68 08/21/17 04:00 97.5 61 14 129/103 100 Room Air 08/21/17 03:00 62 16 125/49 100 Room Air 08/21/17 02:00 61 16 141/57 100 Room Air 08/21/17 01:00 61 16 131/49 100 Room Air 08/21/17 00:00 60 08/21/17 00:00 97.7 65 17 138/54 100 Room Air 08/20/17 23:00 60 16 143/115 99 Room Air 08/20/17 22:00 64 17 130/65 100 Room Air 08/20/17 21:00 98.5 59 17 131/55 100 Room Air 08/20/17 20:00 59 08/20/17 20:00 98.5 60 16 122/101 99 Room Air 08/20/17 19:00 60 16 128/115 95 Room Air 08/20/17 18:00 62 16 137/103 95 Room Air 08/20/17 17:00 64 16 139/40 95 Room Air 08/20/17 16:00 97.7 59 17 127/108 100 Room Air 08/20/17 16:00 64 08/20/17 15:00 60 16 120/102 99 Room Air 08/20/17 14:00 63 16 123/102 98 Room Air 08/20/17 13:00 63 16 120/106 99 Room Air 08/20/17 12:00 97.6 63 17 135/103 100 Room Air 08/20/17 12:00 62 08/20/17 11:00 67 15 120/102 99 Room Air 08/20/17 10:00 60 15 126/110 100 Room Air Laboratory Tests 08/21/17 04:00: Urine Eosinophils None seen 08/21/17 05:00: White Blood Count 6.7, Red Blood Count 2.99L, Hemoglobin 9.1L, Hematocrit 28.9L , Mean Corpuscular Volume 96, Mean Corpuscular Hemoglobin 30.5, Mean Corpuscular Hemoglobin Concent 31.7L, Red Cell Distribution Width 17.7H, Platelet Count 146L, Mean Platelet Volume 5.7L, Neutrophils (%) (Auto) 81.4H, Lymphocytes (%) (Auto) 5.7L, Monocytes (%) (Auto) 10.4H, Eosinophils (%) (Auto) 1.9, Basophils (%) (Auto) 0.5, Prothrombin Time 16.0H, Prothromb Time International Ratio 1.5H, Activated Partial Thromboplast Time 50H, Sodium Level 147H, Potassium Level 3.3L, Chloride Level 109H, Carbon Dioxide Level 29, Anion Gap 9, Blood Urea Nitrogen 28H, Creatinine 4.0H, Estimat Glomerular Filtration Rate 15.4, Glucose Level 97, Uric Acid 3.4, Calcium Level 7.6L, Phosphorus Level 4.3, Magnesium Level 1.7L, Total Bilirubin 0.4, Aspartate Amino Transf ( AST/SGOT) 82H, Alanine Aminotransferase (ALT/SGPT) 52, Alkaline Phosphatase 73, C-Reactive Protein, Quantitative 9.2H, Pro-B-Type Natriuretic Peptide 5683H, Total Protein 5.4L, Albumin 1.3L, Globulin 4.1, Albumin/Globulin Ratio 0.3L, Thyroid Stimulating Hormone (TSH) 4.217H 08/21/17 08:00: Random Vancomycin Level 11.8 Height (Feet): 5 Height (Inches): 7.00 Weight (Pounds): 104 General Appearance: no apparent distress, lethargic Cardiovascular: tachycardia Respiratory/Chest: decreased breath sounds Abdomen: soft Objective PE not changed RYAN MCCLOUD Aug 21, 2017 09:56
[2017-08-21 10:02] LABS: OTHERS PATHOLOGIST COMMENT
--- NOTE | 2017-08-21 10:12 | General Progress Note ---
Assessment/Plan Assessment/Plan ASSESSMENT AND RECOMMENDATIONS: 1. Facial lymphoma, status post chemotherapy with radiation. Currently cancer is in remission. Repeat CT of the head no evidence of malignancy. 2. Anemia secondary to chronic disease. Anemia workup has been reviewed. --> transfuse if hgb below 7 --> s/p transfusion 3. Anemia secondary to kidney disease. --> PATTI has improved, likely due to ATN 4. Altered mental status. Neurology service is evaluating the patient. --> Mri of the brain is pending as is spinal tap --> Appreciate neuro evaluation 5. Necrotizing fasciitis, status post wound VAC and surgery, completed 2 weeks ago. 6. Thrombocytopenia --> monitor closely currently above 100k Subjective Constitutional: Reports: no symptoms HEENT: Reports: no symptoms Cardiovascular: Reports: no symptoms Respiratory: Reports: no symptoms Gastrointestinal/Abdominal: Reports: poor appetite Genitourinary: Reports: no symptoms Neurologic/Psychiatric: Reports: no symptoms Endocrine: Reports: no symptoms Hematologic/Lymphatic: Reports: anemia Allergies: Coded Allergies: No Known Allergies (Unverified , 08/17/17) Subjective no n/v, no fevers, no chills Objective Last 24 Hour Vital Signs Date Time Temp Pulse Resp B/P (MAP) Pulse Ox O2 Delivery O2 Flow Rate FiO2 08/21/17 07:00 55 14 137/45 99 Room Air 08/21/17 06:00 59 14 132/53 99 Room Air 08/21/17 05:00 60 15 136/71 99 Room Air 08/21/17 04:00 68 08/21/17 04:00 97.5 61 14 129/103 100 Room Air 08/21/17 03:00 62 16 125/49 100 Room Air 08/21/17 02:00 61 16 141/57 100 Room Air 08/21/17 01:00 61 16 131/49 100 Room Air 08/21/17 00:00 60 08/21/17 00:00 97.7 65 17 138/54 100 Room Air 08/20/17 23:00 60 16 143/115 99 Room Air 08/20/17 22:00 64 17 130/65 100 Room Air 08/20/17 21:00 98.5 59 17 131/55 100 Room Air 08/20/17 20:00 59 08/20/17 20:00 98.5 60 16 122/101 99 Room Air 08/20/17 19:00 60 16 128/115 95 Room Air 08/20/17 18:00 62 16 137/103 95 Room Air 08/20/17 17:00 64 16 139/40 95 Room Air 08/20/17 16:00 97.7 59 17 127/108 100 Room Air 08/20/17 16:00 64 08/20/17 15:00 60 16 120/102 99 Room Air 08/20/17 14:00 63 16 123/102 98 Room Air 08/20/17 13:00 63 16 120/106 99 Room Air 08/20/17 12:00 97.6 63 17 135/103 100 Room Air 08/20/17 12:00 62 08/20/17 11:00 67 15 120/102 99 Room Air Laboratory Tests 08/21/17 04:00: Urine Eosinophils None seen 08/21/17 05:00: White Blood Count 6.7, Red Blood Count 2.99L, Hemoglobin 9.1L, Hematocrit 28.9L , Mean Corpuscular Volume 96, Mean Corpuscular Hemoglobin 30.5, Mean Corpuscular Hemoglobin Concent 31.7L, Red Cell Distribution Width 17.7H, Platelet Count 146L, Mean Platelet Volume 5.7L, Neutrophils (%) (Auto) 81.4H, Lymphocytes (%) (Auto) 5.7L, Monocytes (%) (Auto) 10.4H, Eosinophils (%) (Auto) 1.9, Basophils (%) (Auto) 0.5, Prothrombin Time 16.0H, Prothromb Time International Ratio 1.5H, Activated Partial Thromboplast Time 50H, Sodium Level 147H, Potassium Level 3.3L, Chloride Level 109H, Carbon Dioxide Level 29, Anion Gap 9, Blood Urea Nitrogen 28H, Creatinine 4.0H, Estimat Glomerular Filtration Rate 15.4, Glucose Level 97, Uric Acid 3.4, Calcium Level 7.6L, Phosphorus Level 4.3, Magnesium Level 1.7L, Total Bilirubin 0.4, Aspartate Amino Transf ( AST/SGOT) 82H, Alanine Aminotransferase (ALT/SGPT) 52, Alkaline Phosphatase 73, C-Reactive Protein, Quantitative 9.2H, Pro-B-Type Natriuretic Peptide 5683H, Total Protein 5.4L, Albumin 1.3L, Globulin 4.1, Albumin/Globulin Ratio 0.3L, Thyroid Stimulating Hormone (TSH) 4.217H 08/21/17 08:00: Random Vancomycin Level 11.8 Height (Feet): 5 Height (Inches): 7.00 Weight (Pounds): 104 General Appearance: alert EENT: normal ENT inspection Neck: abnormal alignment Cardiovascular: regular rhythm Respiratory/Chest: normal breath sounds Abdomen: non tender Extremities: non-tender Edema: 1+ Leg (L), 1+ Leg (R) Edema: mild edema Neurologic: alert Nader Brumfield Aug 21, 2017 10:12
--- NOTE | 2017-08-21 10:33 | Pre-Procedure Note/Attestation ---
Pre-Procedure Note/Attestation Complete Prior to Procedure Planned Procedure: not applicable Procedure Narrative: egd Indications for Procedure Pre-Operative Diagnosis: gib Attestation I attest that I discussed the nature of the procedure; its benefits; risks and complications; and alternatives (and the risks and benefits of such alternatives ), prior to the procedure, with the patient (or the patient's legal associate sales representative). I attest that, if there was a reasonable possibility of needing a blood transfusion, the patient (or the patient's legal associate sales representative) was given the [facility] standardized written summary, pursuant to the Aleksandr Jerald Blood Safety Act ([place] Health and Safety Code # 1645, as amended). I attest that I re-evaluated the patient just prior to the surgery and that there has been no change in the patient's H&P, except as documented below: SUE PORTILLO Aug 21, 2017 10:33
[2017-08-21 10:49] LABS: ABG ALLEN TEST POSITIVE; ABG PCO2 39.3 mmHg (35.0-45.0)
--- NOTE | 2017-08-21 10:49 | Pulmonolgy Critical Care Note ---
Critical Care - Asmt/Plan Problems: (1) Hemorrhagic shock (2) UGI bleed (3) Altered level of consciousness (4) Acute renal failure (5) Cellulitis Respiratory: monitor respiratory rate, adjust FIO2 Cardiac: continue to monitor HR/BP Renal: F/U I&O, keep IV fluid, check electrolytes Gastrointestinal: hold feedings, other - awaiting endoscopy results Hematologic: monitor H/H, transfuse if hgb<8.5 Neurologic: PRN Ativan, keep patient comfortable Affect: PRN ativan Prophylaxis: Protonix Disposition: keep in ICU Time Spent (Minutes): 40 Discussed with: nurses, consultants, pillowcase cutterassistant terminal manager - Objective Last 24 Hour Vital Signs Date Time Temp Pulse Resp B/P (MAP) Pulse Ox O2 Delivery O2 Flow Rate FiO2 08/21/17 07:00 55 14 137/45 99 Room Air 08/21/17 06:00 59 14 132/53 99 Room Air 08/21/17 05:00 60 15 136/71 99 Room Air 08/21/17 04:00 68 08/21/17 04:00 97.5 61 14 129/103 100 Room Air 08/21/17 03:00 62 16 125/49 100 Room Air 08/21/17 02:00 61 16 141/57 100 Room Air 08/21/17 01:00 61 16 131/49 100 Room Air 08/21/17 00:00 60 08/21/17 00:00 97.7 65 17 138/54 100 Room Air 08/20/17 23:00 60 16 143/115 99 Room Air 08/20/17 22:00 64 17 130/65 100 Room Air 08/20/17 21:00 98.5 59 17 131/55 100 Room Air 08/20/17 20:00 59 08/20/17 20:00 98.5 60 16 122/101 99 Room Air 08/20/17 19:00 60 16 128/115 95 Room Air 08/20/17 18:00 62 16 137/103 95 Room Air 08/20/17 17:00 64 16 139/40 95 Room Air 08/20/17 16:00 97.7 59 17 127/108 100 Room Air 08/20/17 16:00 64 08/20/17 15:00 60 16 120/102 99 Room Air 08/20/17 14:00 63 16 123/102 98 Room Air 08/20/17 13:00 63 16 120/106 99 Room Air 08/20/17 12:00 97.6 63 17 135/103 100 Room Air 08/20/17 12:00 62 08/20/17 11:00 67 15 120/102 99 Room Air Status: awake Condition: critical HEENT: atraumatic Neck: full ROM Lungs: clear Heart: HR/BP stable, regular Abdomen: soft, non-tender, active bowel sounds Extremities: no C/C/E, edema Micro: Microbiology Date/Time Source Procedure Growth Status 08/18/17 18:00 Urine,Clean Catch Urine Culture - Final Heavenly Albicans Complete Critical Care - Subjective ROS Limited/Unobtainable: No ICU Day: 5 Interval Events: comfortable, received one unit of PRBC, having endoscopy now Fluids: 1/2 NS 50 cc/hour Drips: protonix drip CXR: no change Labs: Laboratory Tests Test 08/21/17 04:00 08/21/17 05:00 08/21/17 08:00 Urine Eosinophils None seen White Blood Count 6.7 K/UL (4.8-10.8) Red Blood Count 2.99 M/UL (4.70-6.10) L Hemoglobin 9.1 G/DL (14.2-18.0) L Hematocrit 28.9 % (42.0-52.0) L Mean Corpuscular Volume 96 FL (80-99) Mean Corpuscular Hemoglobin 30.5 PG (27.0-31.0) Mean Corpuscular Hemoglobin Concent 31.7 G/DL (32.0-36.0) L Red Cell Distribution Width 17.7 % (11.6-14.8) H Platelet Count 146 K/UL (150-450) L Mean Platelet Volume 5.7 FL (6.5-10.1) L Neutrophils (%) (Auto) 81.4 % (45.0-75.0) H Lymphocytes (%) (Auto) 5.7 % (20.0-45.0) L Monocytes (%) (Auto) 10.4 % (1.0-10.0) H Eosinophils (%) (Auto) 1.9 % (0.0-3.0) Basophils (%) (Auto) 0.5 % (0.0-2.0) Prothrombin Time 16.0 SEC (9.30-11.50) H Prothromb Time International Ratio 1.5 (0.9-1.1) H Activated Partial Thromboplast Time 50 SEC (23-33) H Sodium Level 147 MMOL/L (136-145) H Potassium Level 3.3 MMOL/L (3.5-5.1) L Chloride Level 109 MMOL/L (98-107) H Carbon Dioxide Level 29 MMOL/L (21-32) Anion Gap 9 mmol/L (5-15) Blood Urea Nitrogen 28 mg/dL (7-18) H Creatinine 4.0 MG/DL (0.55-1.30) H Estimat Glomerular Filtration Rate 15.4 mL/min (>60) Glucose Level 97 MG/DL (74-106) Uric Acid 3.4 MG/DL (2.6-7.2) Calcium Level 7.6 MG/DL (8.5-10.1) L Phosphorus Level 4.3 MG/DL (2.5-4.9) Magnesium Level 1.7 MG/DL (1.8-2.4) L Total Bilirubin 0.4 MG/DL (0.2-1.0) Aspartate Amino Transf (AST/SGOT) 82 U/L (15-37) H Alanine Aminotransferase (ALT/SGPT) 52 U/L (12-78) Alkaline Phosphatase 73 U/L (46-116) C-Reactive Protein, Quantitative 9.2 mg/dL (0.00-0.90) H Pro-B-Type Natriuretic Peptide 5683 pg/mL (0-125) H Total Protein 5.4 G/DL (6.4-8.2) L Albumin 1.3 G/DL (3.4-5.0) L Globulin 4.1 g/dL Albumin/Globulin Ratio 0.3 (1.0-2.7) L Thyroid Stimulating Hormone (TSH) 4.217 uiU/mL (0.358-3.740) Random Vancomycin Level 11.8 ug/mL MAYRA BAKER Aug 21, 2017 10:49
[2017-08-21] MEDS ORDERED: Midazolam 2mg/2ml Inj ONE (10:50)
[2017-08-21] MEDS ORDERED: Propofol 200mg/20ml IV ONE (10:50)
[2017-08-21] MEDS ORDERED: NS 500ML ONE ×2 (10:58→10:59)
[2017-08-21] MEDS ORDERED: D5W 275ml ONE (10:58)
[2017-08-21] MEDS ORDERED: Tubing IV Secondary IV ONE ×2 (10:58→10:59)
[2017-08-21] MEDS ORDERED: Tubing Blood Filter IV ONE (10:58)
--- NOTE | 2017-08-21 11:05 | Diagnostic Imaging Report ---
Indication: Abnormal renal function tests Technique: Grayscale and duplex images of the kidneys, retroperitoneum, and bladder were obtained. Comparison:None Findings: Exam is technically limited, due to inability to position patient optimally and body habitus. Right kidney measures 8.8 cm in length. Left kidney measures 8.3 cm in length. Both kidneys demonstrate normal echogenicity. No hydronephrosis. No focal abnormality. Normal inferior vena cava. Bladder is normal. Impression: Somewhat limited exam, as described Bilateral echogenic slightly small kidneys, consistent with medical renal disease Negative for hydronephrosis.
--- NOTE | 2017-08-21 11:28 | Anethesia Preoperative Eval ---
Anesthesia Pre-op PMH/ROS General Date of Evaluation: Aug 21, 2017 Time of Evaluation: 10:50 Anesthesiologist: Corky ASA Score: ASA 3 Mallampati Score Class I : Soft palate, uvula, fauces, pillars visible Class II: Soft palate, uvula, fauces visible Class III: Soft palate, base of uvula visible Class IV: Only hard plate visible Mallampati Classification: Class III Surgeon: Imtiaz Diagnosis: upper GI bleed Surgical Procedure: EGD with biosy Anesthesia History: none Family History: no anesthesia problems Allergies: Coded Allergies: No Known Allergies (Unverified , 08/17/17) Medications: see eMAR Past Medical History Pulmonary: Denies: asthma, COPD, KIEL, other Gastrointestinal/Genitourinary: Reports: other - ARF Neurologic/Psychiatric: Reports: dementia - altered mental status , other - altered mental stuatus Endocrine: Reports: hypothyroidism HEENT: Denies: cataract (L), cataract (R), glaucoma, IGIUGIG (L), IGIUGIG (R), other Hematology/Immune: Reports: anemia, other - Non-Hodgkin Lymphoma, Hep C Musculoskeletal/Integumentary: Denies: OA, RA, DJD, DDD, edema, other Anesthesia Pre-op Phys. Exam Physician Exam Last Vital Signs Date Time Temp Pulse Resp B/P (MAP) Pulse Ox O2 Delivery O2 Flow Rate FiO2 08/21/17 09:00 60 15 127/109 100 Room Air 08/21/17 04:00 97.5 08/17/17 22:30 100.0 Constitutional: NAD Neurologic: CN 2-12 intact Cardiovascular: RRR Respiratory: CTA Gastrointestinal: S/NT/ND Airway Exam Mallampati Score: Class III MO: full ROM: full Teeth: missing Dentures: no upper, no lower Anesthesia Pre-op A/P Labs Hematology Test 08/21/17 05:00 White Blood Count 6.7 K/UL (4.8-10.8) Red Blood Count 2.99 M/UL (4.70-6.10) L Hemoglobin 9.1 G/DL (14.2-18.0) L Hematocrit 28.9 % (42.0-52.0) L Mean Corpuscular Volume 96 FL (80-99) Mean Corpuscular Hemoglobin 30.5 PG (27.0-31.0) Mean Corpuscular Hemoglobin Concent 31.7 G/DL (32.0-36.0) L Red Cell Distribution Width 17.7 % (11.6-14.8) H Platelet Count 146 K/UL (150-450) L Mean Platelet Volume 5.7 FL (6.5-10.1) L Neutrophils (%) (Auto) 81.4 % (45.0-75.0) H Lymphocytes (%) (Auto) 5.7 % (20.0-45.0) L Monocytes (%) (Auto) 10.4 % (1.0-10.0) H Eosinophils (%) (Auto) 1.9 % (0.0-3.0) Basophils (%) (Auto) 0.5 % (0.0-2.0) Coagulation Test 08/21/17 05:00 Prothrombin Time 16.0 SEC (9.30-11.50) H Prothromb Time International Ratio 1.5 (0.9-1.1) H Activated Partial Thromboplast Time 50 SEC (23-33) H Chemistry Test 08/21/17 05:00 Sodium Level 147 MMOL/L (136-145) H Potassium Level 3.3 MMOL/L (3.5-5.1) L Chloride Level 109 MMOL/L (98-107) H Carbon Dioxide Level 29 MMOL/L (21-32) Anion Gap 9 mmol/L (5-15) Blood Urea Nitrogen 28 mg/dL (7-18) H Creatinine 4.0 MG/DL (0.55-1.30) H Estimat Glomerular Filtration Rate 15.4 mL/min (>60) Glucose Level 97 MG/DL (74-106) Uric Acid 3.4 MG/DL (2.6-7.2) Calcium Level 7.6 MG/DL (8.5-10.1) L Phosphorus Level 4.3 MG/DL (2.5-4.9) Magnesium Level 1.7 MG/DL (1.8-2.4) L Total Bilirubin 0.4 MG/DL (0.2-1.0) Aspartate Amino Transf (AST/SGOT) 82 U/L (15-37) H Alanine Aminotransferase (ALT/SGPT) 52 U/L (12-78) Alkaline Phosphatase 73 U/L (46-116) C-Reactive Protein, Quantitative 9.2 mg/dL (0.00-0.90) H Pro-B-Type Natriuretic Peptide 5683 pg/mL (0-125) H Total Protein 5.4 G/DL (6.4-8.2) L Albumin 1.3 G/DL (3.4-5.0) L Globulin 4.1 g/dL Albumin/Globulin Ratio 0.3 (1.0-2.7) L Thyroid Stimulating Hormone (TSH) 4.217 uiU/mL (0.358-3.740) Studies Pre-op Studies: EKG - NST with PVCs 111 BPM Risk Assessment & Plan Assessment: altered mental status. consent obtained from patients via phone Plan: MAC Status Change Before Surgery: No Pre-Antibiotics Given Within 1 Hr of Incision: Dyan Haynes CRNA Aug 21, 2017 11:28
--- NOTE | 2017-08-21 12:23 | Diagnostic Imaging Report ---
Indication: Status post nasogastric tube placement Technique: Supine view of the abdomen Comparison: none Findings: There is a nasogastric tube in place. Tip is coiled in the gastric fundus. The gas pattern is unremarkable Impression: Satisfactory position of nasogastric tube. Patient's nurse notified by phone at the time of interpretation
[2017-08-21] MEDS: Sucralfate 1gm tab ORAL SCH ×3 (12:26→21:32)
--- NOTE | 2017-08-21 12:51 | Endoscopy Procedure Note ---
Endoscopy Procedure Note Indication for Procedure: GIB Procedures Performed: EGD Operative Findings/Diagnosis: ESOPHGAITIS Specimen: yes Pt Tolerated Procedure Well: Yes Estimated Blood Loss: none Anesthesiologist: MIKY Anesthesia: MAC Implant(s) used?: No 50 yrs or older w/o bx or poly: Not Applicable 10yrs. F/U not recommended: Not Applicable SUE PORTILLO Aug 21, 2017 12:51
--- NOTE | 2017-08-21 14:09 | General Progress Note ---
Assessment/Plan Problem List: (1) Lymphoma ICD Codes: C85.90 - Non-Hodgkin lymphoma, unspecified, unspecified site SNOMED: 796956680 (2) Anemia ICD Codes: D64.9 - Anemia, unspecified SNOMED: 568459601 (3) Hypothyroid ICD Codes: E03.9 - Hypothyroidism, unspecified SNOMED: 26155618 (4) Malnutrition ICD Codes: E46 - Unspecified protein-calorie malnutrition SNOMED: 80448861 (5) Altered level of consciousness ICD Codes: R40.4 - Transient alteration of awareness SNOMED: 5119715 (6) Renal failure ICD Codes: N19 - Unspecified kidney failure SNOMED: 56572959 (7) Cellulitis ICD Codes: L03.90 - Cellulitis, unspecified SNOMED: 835525034 Status: unchanged Assessment/Plan ng ot pt diet cbc bmp am, endo eval, ltach eval Subjective Constitutional: Reports: weakness Allergies: Coded Allergies: No Known Allergies (Unverified , 08/17/17) All Systems: reviewed and negative except above Subjective ng lethargic in icu Objective Last 24 Hour Vital Signs Date Time Temp Pulse Resp B/P (MAP) Pulse Ox O2 Delivery O2 Flow Rate FiO2 08/21/17 13:00 52 14 141/43 100 Nasal Cannula 3.0 08/21/17 12:00 97.6 54 14 144/33 100 Nasal Cannula 3.0 08/21/17 12:00 49 08/21/17 11:30 55 22 100 08/21/17 11:00 60 15 126/37 100 Nasal Cannula 3.0 08/21/17 10:00 60 15 142/52 100 Nasal Cannula 3.0 08/21/17 09:00 60 15 127/109 100 Room Air 08/21/17 08:00 58 17 130/45 100 Room Air 08/21/17 08:00 65 08/21/17 07:00 55 14 137/45 99 Room Air 08/21/17 06:00 59 14 132/53 99 Room Air 08/21/17 05:00 60 15 136/71 99 Room Air 08/21/17 04:00 68 08/21/17 04:00 97.5 61 14 129/103 100 Room Air 08/21/17 03:00 62 16 125/49 100 Room Air 08/21/17 02:00 61 16 141/57 100 Room Air 08/21/17 01:00 61 16 131/49 100 Room Air 08/21/17 00:00 60 08/21/17 00:00 97.7 65 17 138/54 100 Room Air 08/20/17 23:00 60 16 143/115 99 Room Air 08/20/17 22:00 64 17 130/65 100 Room Air 08/20/17 21:00 98.5 59 17 131/55 100 Room Air 08/20/17 20:00 59 08/20/17 20:00 98.5 60 16 122/101 99 Room Air 08/20/17 19:00 60 16 128/115 95 Room Air 08/20/17 18:00 62 16 137/103 95 Room Air 08/20/17 17:00 64 16 139/40 95 Room Air 08/20/17 16:00 97.7 59 17 127/108 100 Room Air 08/20/17 16:00 64 08/20/17 15:00 60 16 120/102 99 Room Air Intake and Output 08/21/17 08/22/17 19:00 07:00 Intake Total 630 ml Output Total 225 ml Balance 405 ml IV Total 600 ml Other 30 ml Output Urine Total 225 ml Laboratory Tests 08/21/17 04:00: Urine Eosinophils None seen 08/21/17 05:00: White Blood Count 6.7, Red Blood Count 2.99L, Hemoglobin 9.1L, Hematocrit 28.9L , Mean Corpuscular Volume 96, Mean Corpuscular Hemoglobin 30.5, Mean Corpuscular Hemoglobin Concent 31.7L, Red Cell Distribution Width 17.7H, Platelet Count 146L, Mean Platelet Volume 5.7L, Neutrophils (%) (Auto) 81.4H, Lymphocytes (%) (Auto) 5.7L, Monocytes (%) (Auto) 10.4H, Eosinophils (%) (Auto) 1.9, Basophils (%) (Auto) 0.5, Prothrombin Time 16.0H, Prothromb Time International Ratio 1.5H, Activated Partial Thromboplast Time 50H, Sodium Level 147H, Potassium Level 3.3L, Chloride Level 109H, Carbon Dioxide Level 29, Anion Gap 9, Blood Urea Nitrogen 28H, Creatinine 4.0H, Estimat Glomerular Filtration Rate 15.4, Glucose Level 97, Uric Acid 3.4, Calcium Level 7.6L, Phosphorus Level 4.3, Magnesium Level 1.7L, Total Bilirubin 0.4, Aspartate Amino Transf ( AST/SGOT) 82H, Alanine Aminotransferase (ALT/SGPT) 52, Alkaline Phosphatase 73, C-Reactive Protein, Quantitative 9.2H, Pro-B-Type Natriuretic Peptide 5683H, Total Protein 5.4L, Albumin 1.3L, Globulin 4.1, Albumin/Globulin Ratio 0.3L, Thyroid Stimulating Hormone (TSH) 4.217H 08/21/17 08:00: Random Vancomycin Level 11.8 08/21/17 10:40: Arterial Blood pH 7.460H, Arterial Blood Partial Pressure CO2 39.3, Arterial Blood Partial Pressure O2 93.8, Arterial Blood HCO3 27.9H, Arterial Blood Oxygen Saturation 96.1, Arterial Blood Base Excess 4.0, Darell Test Positive Height (Feet): 5 Height (Inches): 7.00 Weight (Pounds): 104 General Appearance: lethargic EENT: normal ENT inspection Neck: normal alignment Cardiovascular: normal peripheral pulses, normal rate, regular rhythm Respiratory/Chest: chest wall non-tender, lungs clear, normal breath sounds Abdomen: normal bowel sounds, non tender, soft Extremities: normal inspection Edema: no edema noted Arm (L), no edema noted Arm (R), no edema noted Leg (L), no edema noted Leg (R), no edema noted Pedal (L), no edema noted Pedal (R), no edema noted Generalized Neurologic: motor weakness Skin: normal pigmentation, warm/dry ROBERT BANERJEE Aug 21, 2017 14:09
--- NOTE | 2017-08-21 14:50 | Cardiac Electrophysiology PN ---
Assessment/Plan Status Narrative Normal left ventricular chamber size, systolic function and wall motion to extent visualized. Left ventricular ejection fraction estimated to be grossly normal. No evidence of left ventricular hypertrophy. No evidence of pericardial effusion. All other cardiac chamber sizes are within normal limits. Focal aortic valve sclerosis with adequate cusp excursion. Thickened mitral valve leaflets with normal excursion. Mild mitral annulus and aortic root calcification. Pulmonic valve not visualized. Normal tricuspid valve structure. IVC at normal size with physiologic collapse. Assessment/Plan 1. Abnormal electrocardiogram with primary T-wave abnormality.1st trop was negative and second one 0.7 mildly elevated and the 3rd one negative. Due to renal failure and sepsis.Echocardiogram Nl EF. No chest pain or SOB. 2. Metabolic acidosis with carbon dioxide of only 7.Due to renal failure and sepsis 3. BNP of more than 5000. Due to renal failure and volume overload. 4. Renal failure. S/P Tray catheter and HD per Dr. Blakely 5. Hypernatremia. Now on D5W 6. Altered mental status. The head CT showed no acute intracranial bleed, mass effect, or edema. MRI brain and LP pending today 7. Hematemesis. S/P EGD by Dr Kitchen today. LINDSEY RN, Shabbir Melvin In ICU had EGD today by Dr Kitchen today that showed gastritis.Scheduled for MRI brain and LP today as well. Objective Last 24 Hour Vital Signs Date Time Temp Pulse Resp B/P (MAP) Pulse Ox O2 Delivery O2 Flow Rate FiO2 08/21/17 13:00 52 14 141/43 100 Nasal Cannula 3.0 08/21/17 12:00 97.6 54 14 144/33 100 Nasal Cannula 3.0 08/21/17 12:00 49 08/21/17 11:30 55 22 100 08/21/17 11:00 60 15 126/37 100 Nasal Cannula 3.0 08/21/17 10:00 60 15 142/52 100 Nasal Cannula 3.0 08/21/17 09:00 60 15 127/109 100 Room Air 08/21/17 08:00 58 17 130/45 100 Room Air 08/21/17 08:00 65 08/21/17 07:00 55 14 137/45 99 Room Air 08/21/17 06:00 59 14 132/53 99 Room Air 08/21/17 05:00 60 15 136/71 99 Room Air 12/6/17 04:00 68 08/21/17 04:00 97.5 61 14 129/103 100 Room Air 08/21/17 03:00 62 16 125/49 100 Room Air 08/21/17 02:00 61 16 141/57 100 Room Air 08/21/17 01:00 61 16 131/49 100 Room Air 08/21/17 00:00 60 08/21/17 00:00 97.7 65 17 138/54 100 Room Air 08/20/17 23:00 60 16 143/115 99 Room Air 08/20/17 22:00 64 17 130/65 100 Room Air 08/20/17 21:00 98.5 59 17 131/55 100 Room Air 08/20/17 20:00 59 08/20/17 20:00 98.5 60 16 122/101 99 Room Air 08/20/17 19:00 60 16 128/115 95 Room Air 08/20/17 18:00 62 16 137/103 95 Room Air 08/20/17 17:00 64 16 139/40 95 Room Air 08/20/17 16:00 97.7 59 17 127/108 100 Room Air 08/20/17 16:00 64 08/20/17 15:00 60 16 120/102 99 Room Air Intake and Output 08/21/17 08/22/17 19:00 07:00 Intake Total 630 ml Output Total 255 ml Balance 375 ml IV Total 600 ml Other 30 ml Output Urine Total 255 ml Laboratory Tests Test 08/21/17 04:00 08/21/17 05:00 08/21/17 08:00 08/21/17 10:40 Urine Eosinophils None seen White Blood Count 6.7 K/UL (4.8-10.8) Red Blood Count 2.99 M/UL (4.70-6.10) L Hemoglobin 9.1 G/DL (14.2-18.0) L Hematocrit 28.9 % (42.0-52.0) L Mean Corpuscular Volume 96 FL (80-99) Mean Corpuscular Hemoglobin 30.5 PG (27.0-31.0) Mean Corpuscular Hemoglobin Concent 31.7 G/DL (32.0-36.0) L Red Cell Distribution Width 17.7 % (11.6-14.8) H Platelet Count 146 K/UL (150-450) L Mean Platelet Volume 5.7 FL (6.5-10.1) L Neutrophils (%) (Auto) 81.4 % (45.0-75.0) H Lymphocytes (%) (Auto) 5.7 % (20.0-45.0) L Monocytes (%) (Auto) 10.4 % (1.0-10.0) H Eosinophils (%) (Auto) 1.9 % (0.0-3.0) Basophils (%) (Auto) 0.5 % (0.0-2.0) Prothrombin Time 16.0 SEC (9.30-11.50) H Prothromb Time International Ratio 1.5 (0.9-1.1) H Activated Partial Thromboplast Time 50 SEC (23-33) H Sodium Level 147 MMOL/L (136-145) H Potassium Level 3.3 MMOL/L (3.5-5.1) L Chloride Level 109 MMOL/L (98-107) H Carbon Dioxide Level 29 MMOL/L (21-32) Anion Gap 9 mmol/L (5-15) Blood Urea Nitrogen 28 mg/dL (7-18) H Creatinine 4.0 MG/DL (0.55-1.30) H Estimat Glomerular Filtration Rate 15.4 mL/min (>60) Glucose Level 97 MG/DL (74-106) Uric Acid 3.4 MG/DL (2.6-7.2) Calcium Level 7.6 MG/DL (8.5-10.1) L Phosphorus Level 4.3 MG/DL (2.5-4.9) Magnesium Level 1.7 MG/DL (1.8-2.4) L Total Bilirubin 0.4 MG/DL (0.2-1.0) Aspartate Amino Transf (AST/SGOT) 82 U/L (15-37) H Alanine Aminotransferase (ALT/SGPT) 52 U/L (12-78) Alkaline Phosphatase 73 U/L (46-116) C-Reactive Protein, Quantitative 9.2 mg/dL (0.00-0.90) H Pro-B-Type Natriuretic Peptide 5683 pg/mL (0-125) H Total Protein 5.4 G/DL (6.4-8.2) L Albumin 1.3 G/DL (3.4-5.0) L Globulin 4.1 g/dL Albumin/Globulin Ratio 0.3 (1.0-2.7) L Thyroid Stimulating Hormone (TSH) 4.217 uiU/mL (0.358-3.740) Random Vancomycin Level 11.8 ug/mL Arterial Blood pH 7.460 (7.350-7.450) Arterial Blood Partial Pressure CO2 39.3 mmHg (35.0-45.0) Arterial Blood Partial Pressure O2 93.8 mmHg (75.0-100.0) Arterial Blood HCO3 27.9 mmol/L (22.0-26.0) H Arterial Blood Oxygen Saturation 96.1 % (92.0-98.0) Arterial Blood Base Excess 4.0 Darell Test Positive Microbiology Date/Time Source Procedure Growth Status 08/18/17 18:00 Urine,Clean Catch Urine Culture - Final Heavenly Albicans Complete Objective HEAD AND NECK: Showed no JVD.NG tube in. Right face scar LUNGS: Clear. CARDIOVASCULAR: Regular. S1 and S2 with no gallop, his chest has a right- sided port. ABDOMEN: Soft. EXTREMITIES: No edema. NICOLÁS PARKINSON Aug 21, 2017 14:50
--- NOTE | 2017-08-21 15:30 | Diagnostic Imaging Report ---
Indication: DYSPNEA Technique: One view of the chest Comparison: 08/17/2017 and post line placement chest radiographic 08/19/2017 Findings: Nasogastric tube has its tip in the expected region of the gastric fundus, proximal port at or just above the gastroesophageal junction. Right chest port catheter, right jugular temporary dialysis catheter are again demonstrated. Lungs and pleural spaces remain clear. Heart size is normal. Impression: Somewhat high position of nasogastric tube. A subsequent abdomen radiograph documents that this was advanced subsequent to the the chest radiograph Other stable findings as described
--- NOTE | 2017-08-21 15:58 | General Surgery Progress Note ---
General Surgery-Progress Note Subjective Symptoms: improved Additional Comments patient seen and examined. improving. VAC functional. serous output. Objective Last 24 Hour Vital Signs Date Time Temp Pulse Resp B/P (MAP) Pulse Ox O2 Delivery O2 Flow Rate FiO2 08/21/17 15:00 69 15 131/51 100 Nasal Cannula 3.0 08/21/17 14:00 58 14 123/43 100 Nasal Cannula 3.0 08/21/17 13:00 52 14 141/43 100 Nasal Cannula 3.0 08/21/17 12:00 97.6 54 14 144/33 100 Nasal Cannula 3.0 08/21/17 12:00 49 08/21/17 11:30 55 22 100 08/21/17 11:00 60 15 126/37 100 Nasal Cannula 3.0 08/21/17 10:00 60 15 142/52 100 Nasal Cannula 3.0 08/21/17 09:00 60 15 127/109 100 Room Air 08/21/17 08:00 58 17 130/45 100 Room Air 08/21/17 08:00 65 08/21/17 07:00 55 14 137/45 99 Room Air 08/21/17 06:00 59 14 132/53 99 Room Air 08/21/17 05:00 60 15 136/71 99 Room Air 08/21/17 04:00 68 08/21/17 04:00 97.5 61 14 129/103 100 Room Air 08/21/17 03:00 62 16 125/49 100 Room Air 08/21/17 02:00 61 16 141/57 100 Room Air 08/21/17 01:00 61 16 131/49 100 Room Air 08/21/17 00:00 60 08/21/17 00:00 97.7 65 17 138/54 100 Room Air 08/20/17 23:00 60 16 143/115 99 Room Air 08/20/17 22:00 64 17 130/65 100 Room Air 08/20/17 21:00 98.5 59 17 131/55 100 Room Air 08/20/17 20:00 59 08/20/17 20:00 98.5 60 16 122/101 99 Room Air 08/20/17 19:00 60 16 128/115 95 Room Air 08/20/17 18:00 62 16 137/103 95 Room Air 08/20/17 17:00 64 16 139/40 95 Room Air 08/20/17 16:00 97.7 59 17 127/108 100 Room Air 08/20/17 16:00 64 I&O Intake and Output 08/21/17 08/22/17 19:00 07:00 Intake Total 730 ml Output Total 260 ml Balance 470 ml IV Total 700 ml Other 30 ml Output Urine Total 260 ml Wound: clean Drains: wound vac Laboratory Tests Test 08/21/17 04:00 08/21/17 05:00 08/21/17 08:00 08/21/17 10:40 Urine Eosinophils None seen White Blood Count 6.7 K/UL (4.8-10.8) Red Blood Count 2.99 M/UL (4.70-6.10) L Hemoglobin 9.1 G/DL (14.2-18.0) L Hematocrit 28.9 % (42.0-52.0) L Mean Corpuscular Volume 96 FL (80-99) Mean Corpuscular Hemoglobin 30.5 PG (27.0-31.0) Mean Corpuscular Hemoglobin Concent 31.7 G/DL (32.0-36.0) L Red Cell Distribution Width 17.7 % (11.6-14.8) H Platelet Count 146 K/UL (150-450) L Mean Platelet Volume 5.7 FL (6.5-10.1) L Neutrophils (%) (Auto) 81.4 % (45.0-75.0) H Lymphocytes (%) (Auto) 5.7 % (20.0-45.0) L Monocytes (%) (Auto) 10.4 % (1.0-10.0) H Eosinophils (%) (Auto) 1.9 % (0.0-3.0) Basophils (%) (Auto) 0.5 % (0.0-2.0) Prothrombin Time 16.0 SEC (9.30-11.50) H Prothromb Time International Ratio 1.5 (0.9-1.1) H Activated Partial Thromboplast Time 50 SEC (23-33) H Sodium Level 147 MMOL/L (136-145) H Potassium Level 3.3 MMOL/L (3.5-5.1) L Chloride Level 109 MMOL/L (98-107) H Carbon Dioxide Level 29 MMOL/L (21-32) Anion Gap 9 mmol/L (5-15) Blood Urea Nitrogen 28 mg/dL (7-18) H Creatinine 4.0 MG/DL (0.55-1.30) H Estimat Glomerular Filtration Rate 15.4 mL/min (>60) Glucose Level 97 MG/DL (74-106) Uric Acid 3.4 MG/DL (2.6-7.2) Calcium Level 7.6 MG/DL (8.5-10.1) L Phosphorus Level 4.3 MG/DL (2.5-4.9) Magnesium Level 1.7 MG/DL (1.8-2.4) L Total Bilirubin 0.4 MG/DL (0.2-1.0) Aspartate Amino Transf (AST/SGOT) 82 U/L (15-37) H Alanine Aminotransferase (ALT/SGPT) 52 U/L (12-78) Alkaline Phosphatase 73 U/L (46-116) C-Reactive Protein, Quantitative 9.2 mg/dL (0.00-0.90) H Pro-B-Type Natriuretic Peptide 5683 pg/mL (0-125) H Total Protein 5.4 G/DL (6.4-8.2) L Albumin 1.3 G/DL (3.4-5.0) L Globulin 4.1 g/dL Albumin/Globulin Ratio 0.3 (1.0-2.7) L Thyroid Stimulating Hormone (TSH) 4.217 uiU/mL (0.358-3.740) Random Vancomycin Level 11.8 ug/mL Arterial Blood pH 7.460 (7.350-7.450) Arterial Blood Partial Pressure CO2 39.3 mmHg (35.0-45.0) Arterial Blood Partial Pressure O2 93.8 mmHg (75.0-100.0) Arterial Blood HCO3 27.9 mmol/L (22.0-26.0) H Arterial Blood Oxygen Saturation 96.1 % (92.0-98.0) Arterial Blood Base Excess 4.0 Darell Test Positive Plan Problems: (1) Wound, open, hip or thigh Assessment & Plan: 62M here for medical evaluation and management. has large right lateral hip wound after episode of soft tissue infection requiring large debridement. wound has been managed at outside facility and will be managed by surgery while in hospital. when VAC removed wound was evaluated. good granulation tissue over large area of debridement. no tissues currently needing debridement. no drainage. no signs of active infection -keep wound clean. continue with VAC q3days at 100mmHg. -next planned change tomorrow. -will monitor wound with VAC changes. -will do debridement as necessary. thank you for this consultation and allowing me to participate in patients care. will follow with Mauricio Abel Aug 21, 2017 15:58
--- NOTE | 2017-08-21 19:22 | General Progress Note ---
Assessment/Plan Problem List: (1) Metabolic acidosis ICD Codes: E87.2 - Acidosis SNOMED: 00282912 (2) Altered level of consciousness ICD Codes: R40.4 - Transient alteration of awareness SNOMED: 6484896 (3) Renal failure ICD Codes: N19 - Unspecified kidney failure SNOMED: 37210441 (4) Wound, open, hip or thigh ICD Codes: S71.009A - Unspecified open wound, unspecified hip, initial encounter; S71.109A - Unspecified open wound, unspecified thigh, initial encounter SNOMED: 738362094 Qualifiers: (5) Hypothyroid ICD Codes: E03.9 - Hypothyroidism, unspecified SNOMED: 61581359 Assessment/Plan increase Levothyroxine dosage from 50 to 75 mcg daily repeat TSH in 3 weeks I sign off Subjective ROS Limited/Unobtainable: Yes Allergies: Coded Allergies: No Known Allergies (Unverified , 08/17/17) Subjective events noted interval notes reviewed patient evaluated in ICU Objective Last 24 Hour Vital Signs Date Time Temp Pulse Resp B/P (MAP) Pulse Ox O2 Delivery O2 Flow Rate FiO2 08/21/17 18:00 53 12 134/42 100 Nasal Cannula 3.0 08/21/17 17:00 60 15 114/74 100 Nasal Cannula 3.0 08/21/17 16:00 98.2 55 13 132/50 100 Nasal Cannula 3.0 08/21/17 16:00 54 08/21/17 15:00 69 15 131/51 100 Nasal Cannula 3.0 08/21/17 14:00 58 14 123/43 100 Nasal Cannula 3.0 08/21/17 13:00 52 14 141/43 100 Nasal Cannula 3.0 08/21/17 12:00 97.6 54 14 144/33 100 Nasal Cannula 3.0 08/21/17 12:00 49 08/21/17 11:30 55 22 100 08/21/17 11:00 60 15 126/37 100 Nasal Cannula 3.0 08/21/17 10:00 60 15 142/52 100 Nasal Cannula 3.0 08/21/17 09:00 60 15 127/109 100 Room Air 08/21/17 08:00 58 17 130/45 100 Room Air 08/21/17 08:00 65 08/21/17 07:00 55 14 137/45 99 Room Air 08/21/17 06:00 59 14 132/53 99 Room Air 08/21/17 05:00 60 15 136/71 99 Room Air 08/21/17 04:00 68 08/21/17 04:00 97.5 61 14 129/103 100 Room Air 08/21/17 03:00 62 16 125/49 100 Room Air 08/21/17 02:00 61 16 141/57 100 Room Air 08/21/17 01:00 61 16 131/49 100 Room Air 08/21/17 00:00 60 08/21/17 00:00 97.7 65 17 138/54 100 Room Air 08/20/17 23:00 60 16 143/115 99 Room Air 08/20/17 22:00 64 17 130/65 100 Room Air 08/20/17 21:00 98.5 59 17 131/55 100 Room Air 08/20/17 20:00 59 08/20/17 20:00 98.5 60 16 122/101 99 Room Air Intake and Output 08/21/17 08/22/17 19:00 07:00 Intake Total 780 ml Output Total 260 ml Balance 520 ml IV Total 750 ml Other 30 ml Output Urine Total 260 ml Laboratory Tests 08/21/17 04:00: Urine Eosinophils None seen 08/21/17 05:00: White Blood Count 6.7, Red Blood Count 2.99L, Hemoglobin 9.1L, Hematocrit 28.9L , Mean Corpuscular Volume 96, Mean Corpuscular Hemoglobin 30.5, Mean Corpuscular Hemoglobin Concent 31.7L, Red Cell Distribution Width 17.7H, Platelet Count 146L, Mean Platelet Volume 5.7L, Neutrophils (%) (Auto) 81.4H, Lymphocytes (%) (Auto) 5.7L, Monocytes (%) (Auto) 10.4H, Eosinophils (%) (Auto) 1.9, Basophils (%) (Auto) 0.5, Prothrombin Time 16.0H, Prothromb Time International Ratio 1.5H, Activated Partial Thromboplast Time 50H, Sodium Level 147H, Potassium Level 3.3L, Chloride Level 109H, Carbon Dioxide Level 29, Anion Gap 9, Blood Urea Nitrogen 28H, Creatinine 4.0H, Estimat Glomerular Filtration Rate 15.4, Glucose Level 97, Uric Acid 3.4, Calcium Level 7.6L, Phosphorus Level 4.3, Magnesium Level 1.7L, Total Bilirubin 0.4, Aspartate Amino Transf ( AST/SGOT) 82H, Alanine Aminotransferase (ALT/SGPT) 52, Alkaline Phosphatase 73, C-Reactive Protein, Quantitative 9.2H, Pro-B-Type Natriuretic Peptide 5683H, Total Protein 5.4L, Albumin 1.3L, Globulin 4.1, Albumin/Globulin Ratio 0.3L, Thyroid Stimulating Hormone (TSH) 4.217H 08/21/17 08:00: Random Vancomycin Level 11.8 08/21/17 10:40: Arterial Blood pH 7.460H, Arterial Blood Partial Pressure CO2 39.3, Arterial Blood Partial Pressure O2 93.8, Arterial Blood HCO3 27.9H, Arterial Blood Oxygen Saturation 96.1, Arterial Blood Base Excess 4.0, Darell Test Positive Height (Feet): 5 Height (Inches): 7.00 Weight (Pounds): 104 General Appearance: no apparent distress Neck: normal alignment Cardiovascular: normal rate Respiratory/Chest: lungs clear Abdomen: normal bowel sounds Objective Current Medications Medications (Trade) Dose Ordered Sig/Srini Route PRN Reason Start Time Stop Time Status Last Admin Dose Admin Acetaminophen (Tylenol) 650 mg Q4H PRN ORAL fever 08/17/17 23:00 09/16/17 22:59 Cefepime HCl 500 mg/Dextrose 55 ml @ 110 mls/hr Q24H IV 08/21/17 18:00 08/28/17 17:59 Chlorhexidine Gluconate (Sandra-Hex 2%) 1 applic DAILY@2000 TOPIC 08/18/17 20:00 09/17/17 19:59 08/20/17 20:40 Clonidine HCl (Catapres) 0.1 mg Q4H PRN GT For High Blood Pressure 08/20/17 11:30 09/16/17 22:59 Dextrose 1,000 ml @ 50 mls/hr Q20H IV 08/20/17 09:45 09/19/17 09:44 08/21/17 14:49 Dextrose (Dextrose 50%) STAT PRN IV Hypoglycemia 08/17/17 23:00 09/16/17 22:59 Fluconazole 50 ml @ 50 mls/hr DAILY@1800 IV 08/20/17 14:00 08/27/17 13:59 08/20/17 14:43 Heparin Sodium (Porcine) (Heparin 5000 units/ml) 5,000 units EVERY 12 HOURS SUBQ 08/18/17 09:00 09/17/17 08:59 08/20/17 08:58 Levetiracetam 100 ml @ 400 mls/hr Q12HR IVPB 08/19/17 13:30 09/18/17 13:29 08/21/17 09:17 Levothyroxine Sodium (Synthroid) 50 mcg ACBREAKFAST GT 08/21/17 06:30 09/17/17 06:29 Lorazepam (Ativan 2mg/ml 1ml) 0.5 mg Q4H PRN IV For Anxiety 08/17/17 23:00 08/24/17 22:59 Lorazepam (Ativan 2mg/ml 1ml) 1 mg Q4H PRN IV seizure 08/18/17 15:00 08/25/17 14:59 Morphine Sulfate (Morphine Sulfate) 1 mg Q4H PRN IVP For Pain 08/17/17 23:00 08/24/17 22:59 Ondansetron HCl (Zofran) 4 mg Q6H PRN IVP Nausea & Vomiting 08/17/17 23:00 09/16/17 22:59 Pantoprazole (Protonix) 40 mg EVERY 12 HOURS IVP 08/21/17 21:00 09/20/17 20:59 Polyethylene Glycol (Miralax) 17 gm HSPRN PRN GT Constipation 08/20/17 11:45 09/16/17 22:59 Sucralfate (Carafate) 1 gm FOUR TIMES A DAY ORAL 08/21/17 13:00 09/20/17 12:59 08/21/17 18:42 Zolpidem Tartrate (Ambien) 5 mg HSPRN PRN GT Insomnia 08/20/17 11:30 08/24/17 22:59 DELILAH WATKINS Aug 21, 2017 19:22
--- NOTE | 2017-08-21 19:45 | Procedure Note ---
DATE OF PROCEDURE: 08/21/2017 SURGEON: Ravi Kitchen M.D. PROCEDURE: Upper endoscopy with biopsy. ANESTHESIOLOGIST: Corky Chiang CRNA. INSTRUMENT: Olympus adult flexible upper endoscope. INDICATION: Upper gastrointestinal bleeding. REASON FOR PROCEDURE: The procedure, risks, benefits, and possible consequences, including hemorrhage, aspiration, perforation and infection, and alternative treatments, were explained to the patient/legal guardian by Dr. Ravi Kitchen and the patient/legal guardian understood and accepted these risks. DESCRIPTION OF PROCEDURE: After informed consent was obtained and the patient was adequately sedated, Olympus upper endoscope was advanced from mouth into the second portion of the duodenum and retroflexion was performed in the stomach. The patient had evidence of severe friable mucosa in the distal esophagus with blood oozing from it most probably the source of bleeding, most probably chemo induced. In the stomach, there was diffuse gastritis. Random biopsy from antrum was obtained to rule out H. pylori infection. The patient tolerated the procedure very well without any complication. SUMMARY FINDINGS: 1. Severe friable oozing blood from distal esophagus, most probably from chemo. 2. Gastritis, status post biopsy. RECOMMENDATIONS: Follow up biopsy results and treat accordingly. Ravi Kitchen M.D. DR: JUANITA JOB#: [id number] CC:
[2017-08-21] MEDS: Dyna-Hex 2% Top Sol 2oz TOPIC SCH (20:13)
[2017-08-21] MEDS: Cefepime HCl 500 MG in D5W 55 ML IV SCH (20:16)
[2017-08-21] MEDS: Pantoprazole Inj IVP SCH (21:32)
[2017-08-22] VITALS (21 sets, daily range): BP systolic 91–145; BP diastolic 35–114
[2017-08-22 05:09] LABS: BASOPHILS % (AUTO) 0.6 % (0.0-2.0); EOSINOPHILS % (AUTO) 2.5 % (0.0-3.0); LYMPHOCYTES % (AUTO) 6.8 % (20.0-45.0); MEAN CORPUSCULAR HEMOGLOBIN 32.7 PG (27.0-31.0); MEAN CORPUSCULAR HGB CONC 33.2 G/DL (32.0-36.0); MEAN CORPUSCULAR VOLUME 98 FL (80-99); MEAN PLATELET VOLUME 5.4 FL (6.5-10.1); NEUTROPHILS % (AUTO) 77.1 % (45.0-75.0); PLATELET COUNT 109 K/UL (150-450); RED BLOOD COUNT 2.73 M/UL (4.70-6.10); RED CELL DISTRIBUTION WIDTH 18.1 % (11.6-14.8); WHITE BLOOD COUNT 5.8 K/UL (4.8-10.8)
[2017-08-22 05:44] LABS: ANION GAP 6 mmol/L (5-15); ASPARTATE AMINO TRANSFERASE 69 U/L (15-37); CALCIUM 7.7 MG/DL (8.5-10.1); CARBON DIOXIDE 29 MMOL/L (21-32); CHLORIDE 108 MMOL/L (98-107); CREATININE 4.8 MG/DL (0.55-1.30); CRP QUANT 8.8 mg/dL (0.00-0.90); GLOMERULAR FILTRATION RATE 12.5 mL/min (>60); MAGNESIUM 1.9 MG/DL (1.8-2.4); PHOSPHORUS 4.3 MG/DL (2.5-4.9); POTASSIUM 3.1 MMOL/L (3.5-5.1); SODIUM 143 MMOL/L (136-145); TOTAL PROTEIN 5.1 G/DL (6.4-8.2)
[2017-08-22 06:21] LABS: ALANINE AMINOTRANSFERASE 52 U/L (12-78)
--- NOTE | 2017-08-22 08:27 | Diagnostic Imaging Report ---
Indication: MASS abnormal liver function tests Technique: Chavarria-scale and duplex images of the upper abdomen were obtained Comparison: None Findings: There is trace ascites Gallbladder is unremarkable, without stones, wall thickening, nor pericholecystic fluid. Sonographic Leach's sign is negative. Common bile duct measures 5 mm in diameter. There is questionably intrahepatic biliary ductal dilatation. Liver demonstrates coarsened echogenicity, no focal abnormality or surface nodularity. Portal vein and hepatic veins are patent. Pancreas is unremarkable. Spleen is unremarkable, normal-sized. Left kidney measures 9.9 cm in length. Right kidney measures 9.8 cm length. Both kidneys demonstrate increased echogenicity. There is no hydronephrosis. No focal abnormality . Abdominal aorta is partially obscured by bowel gas, visualized portions are non-aneurysmal . Bladder is 289 mL Impression: Trace ascites Negative for gallstones or extrahepatic biliary ductal dilatation Equivocal intrahepatic biliary ductal dilatation. Correlate with liver function tests, consider MRCP if clinically indicated Coarsened hepatic echogenicity, nonspecific, could indicate hepatocellular disease. No surface nodularity to suggest cirrhosis Normal size spleen Mildly echogenic kidneys, could indicate medical renal disease 289 mm bladder volume
[2017-08-22] MEDS: Heparin 5000 units/ml inj SUBQ SCH ×2 (08:34→20:31)
[2017-08-22] MEDS: Sucralfate 1gm tab ORAL SCH ×4 (09:17→20:30)
[2017-08-22] MEDS: Pantoprazole Inj IVP SCH ×2 (09:17→20:30)
[2017-08-22] MEDS: levETIRAcetam 1,000mg/NS100ml 100 ML IVPB SCH ×2 (09:17→20:33)
--- NOTE | 2017-08-22 09:32 | Infectious Diseases Prog Note ---
Assessment/Plan Assessment/Plan A: Recent necrotizing fascitis of R hip ? Mastoiditis Fungal UTI Acute renal failure CKD History of facial lymphoma Anemia VRE colonization Encephalopathy Hepatitis C Cellular immune deficiency, low CD4 GI bleeding, source esophagus P: continue Cefepime & Fluconazole Subjective ROS Limited/Unobtainable: Yes Allergies: Coded Allergies: No Known Allergies (Unverified , 08/17/17) Objective Vital Signs Last 24 Hour Vital Signs Date Time Temp Pulse Resp B/P (MAP) Pulse Ox O2 Delivery O2 Flow Rate FiO2 08/22/17 09:00 99 20 108/66 100 08/22/17 08:00 55 08/22/17 08:00 98.2 55 20 129/109 98 08/22/17 07:00 53 13 145/60 100 Room Air 08/22/17 06:00 54 13 137/53 100 Room Air 08/22/17 05:00 63 13 140/35 99 Room Air 08/22/17 04:00 50 13 127/48 99 Room Air 08/22/17 04:00 57 08/22/17 03:00 53 12 145/71 100 Room Air 08/22/17 02:00 56 14 134/114 100 Room Air 08/22/17 01:00 52 14 138/61 100 Room Air 08/22/17 00:00 50 08/22/17 00:00 98.1 51 14 129/35 100 Room Air 08/21/17 23:00 49 14 127/55 100 Room Air 08/21/17 22:00 51 14 144/45 100 Room Air 08/21/17 21:00 56 14 136/120 100 Room Air 08/21/17 20:00 56 14 144/69 100 Nasal Cannula 3.0 08/21/17 20:00 54 08/21/17 19:00 54 15 139/48 100 Nasal Cannula 3.0 08/21/17 18:00 53 12 134/42 100 Nasal Cannula 3.0 08/21/17 17:00 60 15 114/74 100 Nasal Cannula 3.0 08/21/17 16:00 98.2 55 13 132/50 100 Nasal Cannula 3.0 08/21/17 16:00 54 08/21/17 15:00 69 15 131/51 100 Nasal Cannula 3.0 08/21/17 14:00 58 14 123/43 100 Nasal Cannula 3.0 08/21/17 13:00 52 14 141/43 100 Nasal Cannula 3.0 08/21/17 12:00 97.6 54 14 144/33 100 Nasal Cannula 3.0 08/21/17 12:00 49 08/21/17 11:30 55 22 100 08/21/17 11:00 60 15 126/37 100 Nasal Cannula 3.0 08/21/17 10:00 60 15 142/52 100 Nasal Cannula 3.0 Height (Feet): 5 Height (Inches): 7.00 Weight (Pounds): 120 General Appearance: no acute distress HEENT: other - facial deformity in right side Respiratory/Chest: lungs clear Cardiovascular: normal rate, other - RIj HD line, R Portacath Abdomen: soft, non tender Extremities: no edema Neurologic/Psychiatric: unresponsiveness Laboratory Tests Test 08/21/17 10:40 08/22/17 04:30 Arterial Blood pH 7.460 (7.350-7.450) Arterial Blood Partial Pressure CO2 39.3 mmHg (35.0-45.0) Arterial Blood Partial Pressure O2 93.8 mmHg (75.0-100.0) Arterial Blood HCO3 27.9 mmol/L (22.0-26.0) H Arterial Blood Oxygen Saturation 96.1 % (92.0-98.0) Arterial Blood Base Excess 4.0 Darell Test Positive White Blood Count 5.8 K/UL (4.8-10.8) Red Blood Count 2.73 M/UL (4.70-6.10) L Hemoglobin 8.9 G/DL (14.2-18.0) L Hematocrit 26.9 % (42.0-52.0) L Mean Corpuscular Volume 98 FL (80-99) Mean Corpuscular Hemoglobin 32.7 PG (27.0-31.0) H Mean Corpuscular Hemoglobin Concent 33.2 G/DL (32.0-36.0) Red Cell Distribution Width 18.1 % (11.6-14.8) H Platelet Count 109 K/UL (150-450) L Mean Platelet Volume 5.4 FL (6.5-10.1) L Neutrophils (%) (Auto) 77.1 % (45.0-75.0) H Lymphocytes (%) (Auto) 6.8 % (20.0-45.0) L Monocytes (%) (Auto) 13.0 % (1.0-10.0) H Eosinophils (%) (Auto) 2.5 % (0.0-3.0) Basophils (%) (Auto) 0.6 % (0.0-2.0) Sodium Level 143 MMOL/L (136-145) Potassium Level 3.1 MMOL/L (3.5-5.1) L Chloride Level 108 MMOL/L (98-107) H Carbon Dioxide Level 29 MMOL/L (21-32) Anion Gap 6 mmol/L (5-15) Blood Urea Nitrogen 34 mg/dL (7-18) H Creatinine 4.8 MG/DL (0.55-1.30) H Estimat Glomerular Filtration Rate 12.5 mL/min (>60) Glucose Level 86 MG/DL (74-106) Uric Acid 4.0 MG/DL (2.6-7.2) Calcium Level 7.7 MG/DL (8.5-10.1) L Phosphorus Level 4.3 MG/DL (2.5-4.9) Magnesium Level 1.9 MG/DL (1.8-2.4) Total Bilirubin 0.3 MG/DL (0.2-1.0) Gamma Glutamyl Transpeptidase 30 U/L (5-85) Aspartate Amino Transf (AST/SGOT) 69 U/L (15-37) H Alanine Aminotransferase (ALT/SGPT) 52 U/L (12-78) Alkaline Phosphatase 73 U/L (46-116) C-Reactive Protein, Quantitative 8.8 mg/dL (0.00-0.90) H Pro-B-Type Natriuretic Peptide 5566 pg/mL (0-125) H Total Protein 5.1 G/DL (6.4-8.2) L Albumin 1.2 G/DL (3.4-5.0) L Globulin 3.9 g/dL Current Medications Medications (Trade) Dose Ordered Sig/Srini Route PRN Reason Start Time Stop Time Status Last Admin Dose Admin Acetaminophen (Tylenol) 650 mg Q4H PRN ORAL fever 08/17/17 23:00 09/16/17 22:59 Cefepime HCl 500 mg/Dextrose 55 ml @ 110 mls/hr Q24H IV 08/21/17 18:00 08/28/17 17:59 08/21/17 20:16 Chlorhexidine Gluconate (Sandra-Hex 2%) 1 applic DAILY@2000 TOPIC 08/18/17 20:00 09/17/17 19:59 08/21/17 20:13 Clonidine HCl (Catapres) 0.1 mg Q4H PRN GT For High Blood Pressure 08/20/17 11:30 09/16/17 22:59 Dextrose 1,000 ml @ 50 mls/hr Q20H IV 08/20/17 09:45 09/19/17 09:44 08/21/17 14:49 Dextrose (Dextrose 50%) STAT PRN IV Hypoglycemia 08/17/17 23:00 09/16/17 22:59 Fluconazole 50 ml @ 50 mls/hr DAILY@1800 IV 08/20/17 14:00 08/27/17 13:59 08/21/17 20:16 Heparin Sodium (Porcine) (Heparin 5000 units/ml) 5,000 units EVERY 12 HOURS SUBQ 08/18/17 09:00 09/17/17 08:59 08/20/17 08:58 Levetiracetam 100 ml @ 400 mls/hr Q12HR IVPB 08/19/17 13:30 09/18/17 13:29 08/22/17 09:17 Levothyroxine Sodium (Synthroid) 75 mcg ACBREAKFAST GT 08/22/17 06:30 09/21/17 06:29 08/22/17 06:02 Lorazepam (Ativan 2mg/ml 1ml) 0.5 mg Q4H PRN IV For Anxiety 08/17/17 23:00 08/24/17 22:59 Lorazepam (Ativan 2mg/ml 1ml) 1 mg Q4H PRN IV seizure 08/18/17 15:00 08/25/17 14:59 Morphine Sulfate (Morphine Sulfate) 1 mg Q4H PRN IVP For Pain 08/17/17 23:00 08/24/17 22:59 Ondansetron HCl (Zofran) 4 mg Q6H PRN IVP Nausea & Vomiting 08/17/17 23:00 09/16/17 22:59 Pantoprazole (Protonix) 40 mg EVERY 12 HOURS IVP 08/21/17 21:00 1/5/18 20:59 08/22/17 09:17 Polyethylene Glycol (Miralax) 17 gm HSPRN PRN GT Constipation 08/20/17 11:45 09/16/17 22:59 Sucralfate (Carafate) 1 gm FOUR TIMES A DAY ORAL 08/21/17 13:00 09/20/17 12:59 08/22/17 09:17 Zolpidem Tartrate (Ambien) 5 mg HSPRN PRN GT Insomnia 08/20/17 11:30 08/24/17 22:59 TOYA ENGLISH Aug 22, 2017 09:31
--- NOTE | 2017-08-22 11:04 | Pulmonolgy Critical Care Note ---
Critical Care - Asmt/Plan Problems: (1) Hemorrhagic shock (2) UGI bleed (3) Altered level of consciousness (4) Acute renal failure (5) Cellulitis Respiratory: monitor respiratory rate, adjust FIO2, CXR Cardiac: continue to monitor HR/BP Renal: F/U I&O Infectious Disease: check cultures, continue antibiotics Gastrointestinal: continue feedings/current rate Endocrine: monitor blood sugar Hematologic: monitor H/H Affect: PRN ativan Disposition: transfer to - [facility] Time Spent (Minutes): 40 Notes Reviewed: cardio, renal Discussed with: nurses, consultants, nurse case managementmanager port - Objective Last 24 Hour Vital Signs Date Time Temp Pulse Resp B/P (MAP) Pulse Ox O2 Delivery O2 Flow Rate FiO2 08/22/17 10:00 101 107/70 100 08/22/17 09:00 99 20 108/66 100 08/22/17 08:00 55 08/22/17 08:00 98.2 55 20 129/109 98 08/22/17 07:00 53 13 145/60 100 Room Air 08/22/17 06:00 54 13 137/53 100 Room Air 08/22/17 05:00 63 13 140/35 99 Room Air 08/22/17 04:00 50 13 127/48 99 Room Air 08/22/17 04:00 57 08/22/17 03:00 53 12 145/71 100 Room Air 08/22/17 02:00 56 14 134/114 100 Room Air 08/22/17 01:00 52 14 138/61 100 Room Air 08/22/17 00:00 50 08/22/17 00:00 98.1 51 14 129/35 100 Room Air 08/21/17 23:00 49 14 127/55 100 Room Air 08/21/17 22:00 51 14 144/45 100 Room Air 08/21/17 21:00 56 14 136/120 100 Room Air 08/21/17 20:00 56 14 144/69 100 Nasal Cannula 3.0 08/21/17 20:00 54 08/21/17 19:00 54 15 139/48 100 Nasal Cannula 3.0 08/21/17 18:00 53 12 134/42 100 Nasal Cannula 3.0 08/21/17 17:00 60 15 114/74 100 Nasal Cannula 3.0 08/21/17 16:00 98.2 55 13 132/50 100 Nasal Cannula 3.0 08/21/17 16:00 54 08/21/17 15:00 69 15 131/51 100 Nasal Cannula 3.0 08/21/17 14:00 58 14 123/43 100 Nasal Cannula 3.0 08/21/17 13:00 52 14 141/43 100 Nasal Cannula 3.0 08/21/17 12:00 97.6 54 14 144/33 100 Nasal Cannula 3.0 08/21/17 12:00 49 08/21/17 11:30 55 22 100 Status: awake Condition: critical Neck: full ROM Lungs: clear Heart: HR/BP stable, HR/BP unstable Abdomen: soft, non-tender, active bowel sounds, feeding tube Extremities: no C/C/E, edema Critical Care - Subjective ROS Limited/Unobtainable: No ICU Day: 6 Interval Events: mental status improving off drips Condition: critical FI02: 100 I&O: Intake and Output 08/22/17 08/23/17 19:00 07:00 Intake Total 300 ml Balance 300 ml IV Total 150 ml Other 150 ml CXR: no acute disease Labs: Laboratory Tests Test 08/22/17 04:30 White Blood Count 5.8 K/UL (4.8-10.8) Red Blood Count 2.73 M/UL (4.70-6.10) L Hemoglobin 8.9 G/DL (14.2-18.0) L Hematocrit 26.9 % (42.0-52.0) L Mean Corpuscular Volume 98 FL (80-99) Mean Corpuscular Hemoglobin 32.7 PG (27.0-31.0) H Mean Corpuscular Hemoglobin Concent 33.2 G/DL (32.0-36.0) Red Cell Distribution Width 18.1 % (11.6-14.8) H Platelet Count 109 K/UL (150-450) L Mean Platelet Volume 5.4 FL (6.5-10.1) L Neutrophils (%) (Auto) 77.1 % (45.0-75.0) H Lymphocytes (%) (Auto) 6.8 % (20.0-45.0) L Monocytes (%) (Auto) 13.0 % (1.0-10.0) H Eosinophils (%) (Auto) 2.5 % (0.0-3.0) Basophils (%) (Auto) 0.6 % (0.0-2.0) Sodium Level 143 MMOL/L (136-145) Potassium Level 3.1 MMOL/L (3.5-5.1) L Chloride Level 108 MMOL/L (98-107) H Carbon Dioxide Level 29 MMOL/L (21-32) Anion Gap 6 mmol/L (5-15) Blood Urea Nitrogen 34 mg/dL (7-18) H Creatinine 4.8 MG/DL (0.55-1.30) H Estimat Glomerular Filtration Rate 12.5 mL/min (>60) Glucose Level 86 MG/DL (74-106) Uric Acid 4.0 MG/DL (2.6-7.2) Calcium Level 7.7 MG/DL (8.5-10.1) L Phosphorus Level 4.3 MG/DL (2.5-4.9) Magnesium Level 1.9 MG/DL (1.8-2.4) Total Bilirubin 0.3 MG/DL (0.2-1.0) Gamma Glutamyl Transpeptidase 30 U/L (5-85) Aspartate Amino Transf (AST/SGOT) 69 U/L (15-37) H Alanine Aminotransferase (ALT/SGPT) 52 U/L (12-78) Alkaline Phosphatase 73 U/L (46-116) C-Reactive Protein, Quantitative 8.8 mg/dL (0.00-0.90) H Pro-B-Type Natriuretic Peptide 5566 pg/mL (0-125) H Total Protein 5.1 G/DL (6.4-8.2) L Albumin 1.2 G/DL (3.4-5.0) L Globulin 3.9 g/dL MAYRA BAKER Aug 22, 2017 11:04
--- NOTE | 2017-08-22 11:18 | Cardiac Electrophysiology PN ---
Assessment/Plan Status Narrative Normal left ventricular chamber size, systolic function and wall motion to extent visualized. Left ventricular ejection fraction estimated to be grossly normal. No evidence of left ventricular hypertrophy. No evidence of pericardial effusion. All other cardiac chamber sizes are within normal limits. Focal aortic valve sclerosis with adequate cusp excursion. Thickened mitral valve leaflets with normal excursion. Mild mitral annulus and aortic root calcification. Pulmonic valve not visualized. Normal tricuspid valve structure. IVC at normal size with physiologic collapse. Assessment/Plan 1. Abnormal electrocardiogram with primary T-wave abnormality.1st trop was negative and second one 0.7 mildly elevated and the 3rd one negative. Due to renal failure and sepsis.Echocardiogram Nl EF. No chest pain or SOB. 2. Metabolic acidosis with carbon dioxide of only 7.Due to renal failure and sepsis 3. BNP of more than 5000. Due to renal failure and volume overload. 4. Renal failure. S/P Tray catheter and HD per Dr. Blakely 5. Hypernatremia. Now on D5W 6. Altered mental status. Head CT showed no acute intracranial bleed, mass effect, or edema. MRI brain and LP pending today 7. Hematemesis. S/P EGD by Dr Kitchen today. LINDSEY RN, Shabbir Melvin In ICU had EGD by Dr Kitchen yesterday that showed gastritis.Awaiting MRI brain and LP.Mildly karol in 50s. Objective Last 24 Hour Vital Signs Date Time Temp Pulse Resp B/P (MAP) Pulse Ox O2 Delivery O2 Flow Rate FiO2 08/22/17 10:00 101 107/70 100 08/22/17 09:00 99 20 108/66 100 08/22/17 08:00 55 08/22/17 08:00 98.2 55 20 129/109 98 08/22/17 07:00 53 13 145/60 100 Room Air 08/22/17 06:00 54 13 137/53 100 Room Air 08/22/17 05:00 63 13 140/35 99 Room Air 08/22/17 04:00 50 13 127/48 99 Room Air 08/22/17 04:00 57 08/22/17 03:00 53 12 145/71 100 Room Air 08/22/17 02:00 56 14 134/114 100 Room Air 08/22/17 01:00 52 14 138/61 100 Room Air 08/22/17 00:00 50 08/22/17 00:00 98.1 51 14 129/35 100 Room Air 08/21/17 23:00 49 14 127/55 100 Room Air 08/21/17 22:00 51 14 144/45 100 Room Air 08/21/17 21:00 56 14 136/120 100 Room Air 08/21/17 20:00 56 14 144/69 100 Nasal Cannula 3.0 08/21/17 20:00 54 08/21/17 19:00 54 15 139/48 100 Nasal Cannula 3.0 08/21/17 18:00 53 12 134/42 100 Nasal Cannula 3.0 08/21/17 17:00 60 15 114/74 100 Nasal Cannula 3.0 08/21/17 16:00 98.2 55 13 132/50 100 Nasal Cannula 3.0 08/21/17 16:00 54 08/21/17 15:00 69 15 131/51 100 Nasal Cannula 3.0 08/21/17 14:00 58 14 123/43 100 Nasal Cannula 3.0 08/21/17 13:00 52 14 141/43 100 Nasal Cannula 3.0 08/21/17 12:00 97.6 54 14 144/33 100 Nasal Cannula 3.0 08/21/17 12:00 49 08/21/17 11:30 55 22 100 Intake and Output 08/22/17 08/23/17 19:00 07:00 Intake Total 300 ml Balance 300 ml IV Total 150 ml Other 150 ml Laboratory Tests Test 08/22/17 04:30 White Blood Count 5.8 K/UL (4.8-10.8) Red Blood Count 2.73 M/UL (4.70-6.10) L Hemoglobin 8.9 G/DL (14.2-18.0) L Hematocrit 26.9 % (42.0-52.0) L Mean Corpuscular Volume 98 FL (80-99) Mean Corpuscular Hemoglobin 32.7 PG (27.0-31.0) H Mean Corpuscular Hemoglobin Concent 33.2 G/DL (32.0-36.0) Red Cell Distribution Width 18.1 % (11.6-14.8) H Platelet Count 109 K/UL (150-450) L Mean Platelet Volume 5.4 FL (6.5-10.1) L Neutrophils (%) (Auto) 77.1 % (45.0-75.0) H Lymphocytes (%) (Auto) 6.8 % (20.0-45.0) L Monocytes (%) (Auto) 13.0 % (1.0-10.0) H Eosinophils (%) (Auto) 2.5 % (0.0-3.0) Basophils (%) (Auto) 0.6 % (0.0-2.0) Sodium Level 143 MMOL/L (136-145) Potassium Level 3.1 MMOL/L (3.5-5.1) L Chloride Level 108 MMOL/L (98-107) H Carbon Dioxide Level 29 MMOL/L (21-32) Anion Gap 6 mmol/L (5-15) Blood Urea Nitrogen 34 mg/dL (7-18) H Creatinine 4.8 MG/DL (0.55-1.30) H Estimat Glomerular Filtration Rate 12.5 mL/min (>60) Glucose Level 86 MG/DL (74-106) Uric Acid 4.0 MG/DL (2.6-7.2) Calcium Level 7.7 MG/DL (8.5-10.1) L Phosphorus Level 4.3 MG/DL (2.5-4.9) Magnesium Level 1.9 MG/DL (1.8-2.4) Total Bilirubin 0.3 MG/DL (0.2-1.0) Gamma Glutamyl Transpeptidase 30 U/L (5-85) Aspartate Amino Transf (AST/SGOT) 69 U/L (15-37) H Alanine Aminotransferase (ALT/SGPT) 52 U/L (12-78) Alkaline Phosphatase 73 U/L (46-116) C-Reactive Protein, Quantitative 8.8 mg/dL (0.00-0.90) H Pro-B-Type Natriuretic Peptide 5566 pg/mL (0-125) H Total Protein 5.1 G/DL (6.4-8.2) L Albumin 1.2 G/DL (3.4-5.0) L Globulin 3.9 g/dL Objective HEAD AND NECK: Showed no JVD.NG tube in. Right face scar LUNGS: Clear. CARDIOVASCULAR: Regular. S1 and S2 with no gallop, his chest has a right- sided port. ABDOMEN: Soft. EXTREMITIES: No edema. TOLUIE,NICOLÁS Aug 22, 2017 11:18
--- NOTE | 2017-08-22 11:26 | General Progress Note ---
Assessment/Plan Assessment/Plan ASSESSMENT AND RECOMMENDATIONS: 1. Facial lymphoma, status post chemotherapy with radiation. Currently cancer is in remission. Repeat CT of the head no evidence of malignancy. 2. Anemia secondary to chronic disease. Anemia workup has been reviewed. --> transfuse if hgb below 7 --> s/p transfusion 3. Anemia secondary to kidney disease. --> PATTI has improved, likely due to ATN 4. Altered mental status. Neurology service is evaluating the patient. --> Mri of the brain is pending as is spinal tap --> Appreciate neuro evaluation 5. Necrotizing fasciitis, status post wound VAC and surgery, completed 2 weeks ago. --> continue wound care 6. Thrombocytopenia --> monitor closely currently above 100k Subjective Allergies: Coded Allergies: No Known Allergies (Unverified , 08/17/17) All Systems: reviewed and negative except above Subjective no n/v, no fevers, no bleeding Objective Last 24 Hour Vital Signs Date Time Temp Pulse Resp B/P (MAP) Pulse Ox O2 Delivery O2 Flow Rate FiO2 08/22/17 10:00 101 107/70 100 08/22/17 09:00 99 20 108/66 100 08/22/17 08:00 55 08/22/17 08:00 98.2 55 20 129/109 98 08/22/17 07:00 53 13 145/60 100 Room Air 08/22/17 06:00 54 13 137/53 100 Room Air 08/22/17 05:00 63 13 140/35 99 Room Air 08/22/17 04:00 50 13 127/48 99 Room Air 08/22/17 04:00 57 08/22/17 03:00 53 12 145/71 100 Room Air 08/22/17 02:00 56 14 134/114 100 Room Air 08/22/17 01:00 52 14 138/61 100 Room Air 08/22/17 00:00 50 08/22/17 00:00 98.1 51 14 129/35 100 Room Air 08/21/17 23:00 49 14 127/55 100 Room Air 08/21/17 22:00 51 14 144/45 100 Room Air 08/21/17 21:00 56 14 136/120 100 Room Air 08/21/17 20:00 56 14 144/69 100 Nasal Cannula 3.0 08/21/17 20:00 54 08/21/17 19:00 54 15 139/48 100 Nasal Cannula 3.0 08/21/17 18:00 53 12 134/42 100 Nasal Cannula 3.0 08/21/17 17:00 60 15 114/74 100 Nasal Cannula 3.0 08/21/17 16:00 98.2 55 13 132/50 100 Nasal Cannula 3.0 08/21/17 16:00 54 08/21/17 15:00 69 15 131/51 100 Nasal Cannula 3.0 08/21/17 14:00 58 14 123/43 100 Nasal Cannula 3.0 08/21/17 13:00 52 14 141/43 100 Nasal Cannula 3.0 08/21/17 12:00 97.6 54 14 144/33 100 Nasal Cannula 3.0 08/21/17 12:00 49 08/21/17 11:30 55 22 100 Intake and Output 08/22/17 08/23/17 19:00 07:00 Intake Total 300 ml Balance 300 ml IV Total 150 ml Other 150 ml Laboratory Tests 08/22/17 04:30: White Blood Count 5.8, Red Blood Count 2.73L, Hemoglobin 8.9L, Hematocrit 26.9L , Mean Corpuscular Volume 98, Mean Corpuscular Hemoglobin 32.7H, Mean Corpuscular Hemoglobin Concent 33.2, Red Cell Distribution Width 18.1H, Platelet Count 109L, Mean Platelet Volume 5.4L, Neutrophils (%) (Auto) 77.1H, Lymphocytes (%) (Auto) 6.8L, Monocytes (%) (Auto) 13.0H, Eosinophils (%) (Auto) 2.5, Basophils (%) (Auto) 0.6, Sodium Level 143, Potassium Level 3.1L, Chloride Level 108H, Carbon Dioxide Level 29, Anion Gap 6, Blood Urea Nitrogen 34H, Creatinine 4.8H, Estimat Glomerular Filtration Rate 12.5, Glucose Level 86, Uric Acid 4.0, Calcium Level 7.7L, Phosphorus Level 4.3, Magnesium Level 1.9, Total Bilirubin 0.3, Gamma Glutamyl Transpeptidase 30, Aspartate Amino Transf ( AST/SGOT) 69H, Alanine Aminotransferase (ALT/SGPT) 52, Alkaline Phosphatase 73, C-Reactive Protein, Quantitative 8.8H, Pro-B-Type Natriuretic Peptide 5566H, Total Protein 5.1L, Albumin 1.2L, Globulin 3.9 Height (Feet): 5 Height (Inches): 7.00 Weight (Pounds): 120 General Appearance: no apparent distress EENT: normal ENT inspection Neck: normal alignment Cardiovascular: normal peripheral pulses Skin: warm/dry Nader Brumfield Aug 22, 2017 11:26
--- NOTE | 2017-08-22 11:31 | GI Progress Note ---
Assessment/Plan Problems: (1) Lymphoma ICD Codes: C85.90 - Non-Hodgkin lymphoma, unspecified, unspecified site SNOMED: 465016810 (2) Malnutrition ICD Codes: E46 - Unspecified protein-calorie malnutrition SNOMED: 68146579 (3) Anemia ICD Codes: D64.9 - Anemia, unspecified SNOMED: 098929647 (4) Anemia due to blood loss ICD Codes: D50.0 - Iron deficiency anemia secondary to blood loss (chronic) SNOMED: 206837753 (5) Dehydration ICD Codes: E86.0 - Dehydration SNOMED: 12423632 (6) UGI bleed ICD Codes: K92.2 - Gastrointestinal hemorrhage, unspecified SNOMED: 39634427 Status: progressing Status Narrative Discussed with Dr. Kitchen. Assessment/Plan SUMMARY FINDINGS: 1. Severe friable oozing blood from distal esophagus, most probably from chemo. 2. Gastritis, status post biopsy. RECOMMENDATIONS: Follow up biopsy results and treat accordingly. fu ST evaluation ppi BID monitor H&H, prn transfusion abx fu labs Subjective Subjective limited Objective Last 24 Hour Vital Signs Date Time Temp Pulse Resp B/P (MAP) Pulse Ox O2 Delivery O2 Flow Rate FiO2 08/22/17 10:00 101 107/70 100 08/22/17 09:00 99 20 108/66 100 08/22/17 08:00 55 08/22/17 08:00 98.2 55 20 129/109 98 08/22/17 07:00 53 13 145/60 100 Room Air 08/22/17 06:00 54 13 137/53 100 Room Air 08/22/17 05:00 63 13 140/35 99 Room Air 08/22/17 04:00 50 13 127/48 99 Room Air 08/22/17 04:00 57 08/22/17 03:00 53 12 145/71 100 Room Air 08/22/17 02:00 56 14 134/114 100 Room Air 08/22/17 01:00 52 14 138/61 100 Room Air 08/22/17 00:00 50 08/22/17 00:00 98.1 51 14 129/35 100 Room Air 08/21/17 23:00 49 14 127/55 100 Room Air 08/21/17 22:00 51 14 144/45 100 Room Air 08/21/17 21:00 56 14 136/120 100 Room Air 08/21/17 20:00 56 14 144/69 100 Nasal Cannula 3.0 08/21/17 20:00 54 08/21/17 19:00 54 15 139/48 100 Nasal Cannula 3.0 08/21/17 18:00 53 12 134/42 100 Nasal Cannula 3.0 08/21/17 17:00 60 15 114/74 100 Nasal Cannula 3.0 08/21/17 16:00 98.2 55 13 132/50 100 Nasal Cannula 3.0 08/21/17 16:00 54 08/21/17 15:00 69 15 131/51 100 Nasal Cannula 3.0 08/21/17 14:00 58 14 123/43 100 Nasal Cannula 3.0 08/21/17 13:00 52 14 141/43 100 Nasal Cannula 3.0 08/21/17 12:00 97.6 54 14 144/33 100 Nasal Cannula 3.0 08/21/17 12:00 49 08/21/17 11:30 55 22 100 Intake and Output 08/22/17 08/23/17 19:00 07:00 Intake Total 300 ml Balance 300 ml IV Total 150 ml Other 150 ml Laboratory Tests Test 08/22/17 04:30 White Blood Count 5.8 K/UL (4.8-10.8) Red Blood Count 2.73 M/UL (4.70-6.10) L Hemoglobin 8.9 G/DL (14.2-18.0) L Hematocrit 26.9 % (42.0-52.0) L Mean Corpuscular Volume 98 FL (80-99) Mean Corpuscular Hemoglobin 32.7 PG (27.0-31.0) H Mean Corpuscular Hemoglobin Concent 33.2 G/DL (32.0-36.0) Red Cell Distribution Width 18.1 % (11.6-14.8) H Platelet Count 109 K/UL (150-450) L Mean Platelet Volume 5.4 FL (6.5-10.1) L Neutrophils (%) (Auto) 77.1 % (45.0-75.0) H Lymphocytes (%) (Auto) 6.8 % (20.0-45.0) L Monocytes (%) (Auto) 13.0 % (1.0-10.0) H Eosinophils (%) (Auto) 2.5 % (0.0-3.0) Basophils (%) (Auto) 0.6 % (0.0-2.0) Sodium Level 143 MMOL/L (136-145) Potassium Level 3.1 MMOL/L (3.5-5.1) L Chloride Level 108 MMOL/L (98-107) H Carbon Dioxide Level 29 MMOL/L (21-32) Anion Gap 6 mmol/L (5-15) Blood Urea Nitrogen 34 mg/dL (7-18) H Creatinine 4.8 MG/DL (0.55-1.30) H Estimat Glomerular Filtration Rate 12.5 mL/min (>60) Glucose Level 86 MG/DL (74-106) Uric Acid 4.0 MG/DL (2.6-7.2) Calcium Level 7.7 MG/DL (8.5-10.1) L Phosphorus Level 4.3 MG/DL (2.5-4.9) Magnesium Level 1.9 MG/DL (1.8-2.4) Total Bilirubin 0.3 MG/DL (0.2-1.0) Gamma Glutamyl Transpeptidase 30 U/L (5-85) Aspartate Amino Transf (AST/SGOT) 69 U/L (15-37) H Alanine Aminotransferase (ALT/SGPT) 52 U/L (12-78) Alkaline Phosphatase 73 U/L (46-116) C-Reactive Protein, Quantitative 8.8 mg/dL (0.00-0.90) H Pro-B-Type Natriuretic Peptide 5566 pg/mL (0-125) H Total Protein 5.1 G/DL (6.4-8.2) L Albumin 1.2 G/DL (3.4-5.0) L Globulin 3.9 g/dL Height (Feet): 5 Height (Inches): 7.00 Weight (Pounds): 120 General Appearance: alert Cardiovascular: normal rate Respiratory/Chest: other - NC Abdominal Exam: other - ALEXANDRAT Lou Jarquin N.P. Aug 22, 2017 11:31
--- NOTE | 2017-08-22 12:21 | Nephrology Progress Note ---
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 2D Echo- Left ventricular ejection fraction estimated to be grossly normal. Avoid nephrotoxics- Neuro eval transfusion as needed IV protonix Subjective ROS Limited/Unobtainable: No Constitutional: Reports: malaise, other - more awake Objective Objective Last 24 Hour Vital Signs Date Time Temp Pulse Resp B/P (MAP) Pulse Ox O2 Delivery O2 Flow Rate FiO2 08/22/17 11:54 Mechanical Ventilator 3.0 100 08/22/17 11:49 Mechanical Ventilator 08/22/17 11:00 104 20 107/64 100 08/22/17 10:00 101 107/70 100 08/22/17 09:00 99 20 108/66 100 08/22/17 08:00 55 08/22/17 08:00 98.2 55 20 129/109 98 08/22/17 07:00 53 13 145/60 100 Room Air 08/22/17 06:00 54 13 137/53 100 Room Air 08/22/17 05:00 63 13 140/35 99 Room Air 08/22/17 04:00 50 13 127/48 99 Room Air 08/22/17 04:00 57 08/22/17 03:00 53 12 145/71 100 Room Air 08/22/17 02:00 56 14 134/114 100 Room Air 08/22/17 01:00 52 14 138/61 100 Room Air 08/22/17 00:00 50 08/22/17 00:00 98.1 51 14 129/35 100 Room Air 08/21/17 23:00 49 14 127/55 100 Room Air 08/21/17 22:00 51 14 144/45 100 Room Air 08/21/17 21:00 56 14 136/120 100 Room Air 08/21/17 20:00 56 14 144/69 100 Nasal Cannula 3.0 08/21/17 20:00 54 08/21/17 19:00 54 15 139/48 100 Nasal Cannula 3.0 08/21/17 18:00 53 12 134/42 100 Nasal Cannula 3.0 08/21/17 17:00 60 15 114/74 100 Nasal Cannula 3.0 08/21/17 16:00 98.2 55 13 132/50 100 Nasal Cannula 3.0 08/21/17 16:00 54 08/21/17 15:00 69 15 131/51 100 Nasal Cannula 3.0 08/21/17 14:00 58 14 123/43 100 Nasal Cannula 3.0 08/21/17 13:00 52 14 141/43 100 Nasal Cannula 3.0 Intake and Output 08/22/17 08/23/17 19:00 07:00 Intake Total 350 ml Balance 350 ml IV Total 150 ml Other 200 ml Laboratory Tests 08/22/17 04:30: White Blood Count 5.8, Red Blood Count 2.73L, Hemoglobin 8.9L, Hematocrit 26.9L , Mean Corpuscular Volume 98, Mean Corpuscular Hemoglobin 32.7H, Mean Corpuscular Hemoglobin Concent 33.2, Red Cell Distribution Width 18.1H, Platelet Count 109L, Mean Platelet Volume 5.4L, Neutrophils (%) (Auto) 77.1H, Lymphocytes (%) (Auto) 6.8L, Monocytes (%) (Auto) 13.0H, Eosinophils (%) (Auto) 2.5, Basophils (%) (Auto) 0.6, Sodium Level 143, Potassium Level 3.1L, Chloride Level 108H, Carbon Dioxide Level 29, Anion Gap 6, Blood Urea Nitrogen 34H, Creatinine 4.8H, Estimat Glomerular Filtration Rate 12.5, Glucose Level 86, Uric Acid 4.0, Calcium Level 7.7L, Phosphorus Level 4.3, Magnesium Level 1.9, Total Bilirubin 0.3, Gamma Glutamyl Transpeptidase 30, Aspartate Amino Transf ( AST/SGOT) 69H, Alanine Aminotransferase (ALT/SGPT) 52, Alkaline Phosphatase 73, C-Reactive Protein, Quantitative 8.8H, Pro-B-Type Natriuretic Peptide 5566H, Total Protein 5.1L, Albumin 1.2L, Globulin 3.9 Height (Feet): 5 Height (Inches): 7.00 Weight (Pounds): 120 General Appearance: lethargic Cardiovascular: tachycardia Respiratory/Chest: decreased breath sounds Abdomen: soft, distended Objective PE not changed RYAN MCCLOUD Aug 22, 2017 12:21
[2017-08-22 13:53] LABS: INR 1.2 (0.9-1.1); PROTHROMBIN TIME 12.8 SEC (9.30-11.50)
--- NOTE | 2017-08-22 14:35 | Diagnostic Imaging Report ---
Indication: Altered mental status Technique: sagittal T1 fast spin echo, axial T1 FLAIR, axial T2 FLAIR and T2 FLAIR PROPELLER, axial T2 FS PROPELLER, axial T2* GRE, axial diffusion weighted images. ADC and exponential ADC maps generated Comparison: Reference made to brain CT dated 08/17/2017 Findings:Exam is limited due to motion artifact degrading multiple sequences. Patient was unable hold still and could not be sedated. No abnormal areas of restricted diffusion to suggest acute infarction. No acute hemorrhage or edema. No mass effect nor midline shift. There is age-related enlargement of the ventricles and extra axial CSF spaces. There is minimal deep white matter T2 hyperintensity consistent with chronic ischemic change. The vascular flow voids are preserved. There is extensive opacification of the frontal, ethmoid, and left maxillary sinuses. There is an air-fluid level in the right sphenoid sinus which may indicate acute sphenoid sinusitis. There is also evidence of postsurgical changes of the right maxillary sinus, better demonstrated on recent CT. There is extensive right mastoid fluid and minimal left mastoid fluid. The orbits are unremarkable Impression: Age-related volume loss Negative for acute intracranial bleed, infarct, or mass effect Sinus disease, as described. Possible acute sphenoid sinusitis
--- NOTE | 2017-08-22 14:54 | General Progress Note ---
Assessment/Plan Problem List: (1) Lymphoma ICD Codes: C85.90 - Non-Hodgkin lymphoma, unspecified, unspecified site SNOMED: 271709780 (2) Anemia ICD Codes: D64.9 - Anemia, unspecified SNOMED: 006873863 (3) Hypothyroid ICD Codes: E03.9 - Hypothyroidism, unspecified SNOMED: 22984352 (4) Malnutrition ICD Codes: E46 - Unspecified protein-calorie malnutrition SNOMED: 37143782 (5) Altered level of consciousness ICD Codes: R40.4 - Transient alteration of awareness SNOMED: 3685342 (6) Renal failure ICD Codes: N19 - Unspecified kidney failure SNOMED: 80225866 (7) Cellulitis ICD Codes: L03.90 - Cellulitis, unspecified SNOMED: 885190797 Status: stable, progressing Assessment/Plan ng ot pt diet cbc bmp am, endo eval, ltach eval Subjective Constitutional: Reports: weakness Allergies: Coded Allergies: No Known Allergies (Unverified , 08/17/17) All Systems: reviewed and negative except above Subjective lethargic in icu Objective Last 24 Hour Vital Signs Date Time Temp Pulse Resp B/P (MAP) Pulse Ox O2 Delivery O2 Flow Rate FiO2 08/22/17 14:00 58 16 140/61 98 Room Air 08/22/17 13:00 55 16 126/66 100 08/22/17 12:00 52 08/22/17 12:00 97.7 105 18 116/71 100 08/22/17 11:54 Mechanical Ventilator 3.0 100 08/22/17 11:49 Mechanical Ventilator 08/22/17 11:00 104 20 107/64 100 08/22/17 10:00 101 107/70 100 08/22/17 09:00 99 20 108/66 100 08/22/17 08:00 55 08/22/17 08:00 98.2 55 20 129/109 98 08/22/17 07:00 53 13 145/60 100 Room Air 08/22/17 06:00 54 13 137/53 100 Room Air 08/22/17 05:00 63 13 140/35 99 Room Air 08/22/17 04:00 50 13 127/48 99 Room Air 08/22/17 04:00 57 08/22/17 03:00 53 12 145/71 100 Room Air 08/22/17 02:00 56 14 134/114 100 Room Air 08/22/17 01:00 52 14 138/61 100 Room Air 08/22/17 00:00 50 08/22/17 00:00 98.1 51 14 129/35 100 Room Air 08/21/17 23:00 49 14 127/55 100 Room Air 08/21/17 22:00 51 14 144/45 100 Room Air 08/21/17 21:00 56 14 136/120 100 Room Air 08/21/17 20:00 56 14 144/69 100 Nasal Cannula 3.0 08/21/17 20:00 54 08/21/17 19:00 54 15 139/48 100 Nasal Cannula 3.0 08/21/17 18:00 53 12 134/42 100 Nasal Cannula 3.0 08/21/17 17:00 60 15 114/74 100 Nasal Cannula 3.0 08/21/17 16:00 98.2 55 13 132/50 100 Nasal Cannula 3.0 08/21/17 16:00 54 08/21/17 15:00 69 15 131/51 100 Nasal Cannula 3.0 Intake and Output 08/22/17 08/23/17 19:00 07:00 Intake Total 750 ml Output Total 100 ml Balance 650 ml IV Total 150 ml Other 600 ml Output Urine Total 100 ml Laboratory Tests 08/22/17 04:30: White Blood Count 5.8, Red Blood Count 2.73L, Hemoglobin 8.9L, Hematocrit 26.9L , Mean Corpuscular Volume 98, Mean Corpuscular Hemoglobin 32.7H, Mean Corpuscular Hemoglobin Concent 33.2, Red Cell Distribution Width 18.1H, Platelet Count 109L, Mean Platelet Volume 5.4L, Neutrophils (%) (Auto) 77.1H, Lymphocytes (%) (Auto) 6.8L, Monocytes (%) (Auto) 13.0H, Eosinophils (%) (Auto) 2.5, Basophils (%) (Auto) 0.6, Sodium Level 143, Potassium Level 3.1L, Chloride Level 108H, Carbon Dioxide Level 29, Anion Gap 6, Blood Urea Nitrogen 34H, Creatinine 4.8H, Estimat Glomerular Filtration Rate 12.5, Glucose Level 86, Uric Acid 4.0, Calcium Level 7.7L, Phosphorus Level 4.3, Magnesium Level 1.9, Total Bilirubin 0.3, Gamma Glutamyl Transpeptidase 30, Aspartate Amino Transf ( AST/SGOT) 69H, Alanine Aminotransferase (ALT/SGPT) 52, Alkaline Phosphatase 73, C-Reactive Protein, Quantitative 8.8H, Pro-B-Type Natriuretic Peptide 5566H, Total Protein 5.1L, Albumin 1.2L, Globulin 3.9 08/22/17 13:20: Prothrombin Time 12.8H, Prothromb Time International Ratio 1.2H, Activated Partial Thromboplast Time 47H Height (Feet): 5 Height (Inches): 7.00 Weight (Pounds): 120 General Appearance: lethargic, confused EENT: normal ENT inspection Neck: normal alignment Cardiovascular: normal peripheral pulses, normal rate, regular rhythm Respiratory/Chest: chest wall non-tender, lungs clear, normal breath sounds Abdomen: normal bowel sounds, non tender, soft Extremities: normal inspection Edema: no edema noted Arm (L), no edema noted Arm (R), no edema noted Leg (L), no edema noted Leg (R), no edema noted Pedal (L), no edema noted Pedal (R), no edema noted Generalized Neurologic: motor weakness Skin: normal pigmentation, warm/dry ROBERT BANERJEE Aug 22, 2017 14:54
--- NOTE | 2017-08-22 15:01 | Operative Note - PDOC ---
Operative Note Operative Note Date of Operation/Procedure: Aug 22, 2017 Pre-op Diagnosis: right hip wound 25cm x 18cm exposed tissue Procedure: Wound VAC change for large right hip wound Operative Findings: consistent w/pre-op dx studies Surgeon: pranav HILL Additional Surgeons: n/a Anesthesiologist: n/a Anesthesia: other Specimen: none Complications: none Condition: stable Fluids: n/a Estimated Blood Loss: none Drains: wound vac Implant(s) used?: No Indications for Procedure 62M with complicated medical history (see consult note for details) has large right lateral hip wound. Patient had necrotizing soft tissue infection of his right hip prior requiring extensive debridement. Has had large wound since that has been cared for with wound VAC. Last change 3 days ago and due for change today which was done at bedside. patient awake and alert. consented to vac change. Description of Procedure Patient made comfortable at bedside. He was placed in left lateral decubitus position. prior wound vac sponge disconnected and after a few minutes prior dressings removed. wound evaluated and noted to be very clean with with good granulation tissue. wound is a large 25cm x 28cm right lateral hip wound that extends from right flank to right upper hip. no skin or subcutaneous fat present. wound down to muscle and fascia. wound cleaned and new black wound vac foam placed. vac suction resumed at 100mmHg without leak or complication. patient tolerated procedure well. plan for next change on Saturday Mauricio Mistry Aug 22, 2017 15:01
[2017-08-22] MEDS ORDERED: Tubing IV Secondary IV ONE (15:56)
[2017-08-22] MEDS: Cefepime HCl 500 MG in D5W 55 ML IV SCH (18:25)
[2017-08-22] MEDS: Dyna-Hex 2% Top Sol 2oz TOPIC SCH (20:01)
[2017-08-22] MEDS ORDERED: Morphine Sulfate 2mg/ml Inj IVP PRN (22:00)
[2017-08-22] MEDS ORDERED: LORazepam Inj 2mg/ml 1ml IV PRN ×2 (22:00)
[2017-08-22] MEDS ORDERED: Zolpidem 5mg tab GT PRN (22:00)
[2017-08-22] MEDS ORDERED: Miralax 17gm pkt GT PRN (22:00)
[2017-08-23] VITALS (7 sets, daily range): BP systolic 103–130; BP diastolic 41–73
[2017-08-23 05:10] LABS: MEAN CORPUSCULAR HEMOGLOBIN 32.9 PG (27.0-31.0); MEAN CORPUSCULAR HGB CONC 33.3 G/DL (32.0-36.0); MEAN CORPUSCULAR VOLUME 99 FL (80-99); MEAN PLATELET VOLUME 7.1 FL (6.5-10.1); PLATELET COUNT 78 K/UL (150-450); RED BLOOD COUNT 2.71 M/UL (4.70-6.10); RED CELL DISTRIBUTION WIDTH 18.2 % (11.6-14.8); WHITE BLOOD COUNT 6.5 K/UL (4.8-10.8)
[2017-08-23 05:43] LABS: ALANINE AMINOTRANSFERASE 47 U/L (12-78); ALBUMIN/GLOBULIN RATIO 0.3 (1.0-2.7); ANION GAP 5 mmol/L (5-15); ASPARTATE AMINO TRANSFERASE 72 U/L (15-37); CALCIUM 7.5 MG/DL (8.5-10.1); CARBON DIOXIDE 33 MMOL/L (21-32); CHLORIDE 103 MMOL/L (98-107); CREATININE 2.8 MG/DL (0.55-1.30); GLOMERULAR FILTRATION RATE 23.2 mL/min (>60); MAGNESIUM 1.6 MG/DL (1.8-2.4); PHOSPHORUS 2.5 MG/DL (2.5-4.9); SODIUM 142 MMOL/L (136-145); TOTAL PROTEIN 4.9 G/DL (6.4-8.2)
[2017-08-23 05:50] LABS: POTASSIUM 2.6 MMOL/L (3.5-5.1)
[2017-08-23] MEDS ORDERED: Heparin 5000 units/ml inj SUBQ SCH (09:00)
[2017-08-23] MEDS ORDERED: levETIRAcetam 1,000mg/NS100ml 100 ML IVPB SCH (09:00)
[2017-08-23] MEDS ORDERED: Pantoprazole Inj IVP SCH (09:00)
--- NOTE | 2017-08-23 10:02 | Infectious Diseases Prog Note ---
Assessment/Plan Assessment/Plan A: Recent necrotizing fascitis of R hip ? Mastoiditis Fungal UTI Acute renal failure CKD History of facial lymphoma Anemia VRE colonization Encephalopathy Hepatitis C Cellular immune deficiency, low CD4 GI bleeding, source esophagus Sinusitis P: discontinue Cefepime Continue Fluconazole case was D/W [employer] yesterday may need prophylaxis for PCP Subjective ROS Limited/Unobtainable: Yes Allergies: Coded Allergies: No Known Allergies (Unverified , 08/17/17) Objective Vital Signs Last 24 Hour Vital Signs Date Time Temp Pulse Resp B/P (MAP) Pulse Ox O2 Delivery O2 Flow Rate FiO2 08/23/17 08:00 97.9 65 21 129/62 94 Room Air 08/23/17 04:00 98.1 56 20 128/64 92 Room Air 08/23/17 04:00 56 08/23/17 00:00 98.0 56 20 103/50 93 Room Air 08/23/17 00:00 56 08/22/17 20:00 52 08/22/17 20:00 97.4 52 18 119/46 94 Room Air 08/22/17 19:00 55 15 125/54 94 Room Air 08/22/17 18:00 58 15 110/54 94 Room Air 08/22/17 17:49 Room Air 3.0 100 08/22/17 17:00 62 15 118/65 94 Room Air 08/22/17 16:00 97.8 55 16 98/35 98 Room Air 08/22/17 16:00 60 08/22/17 15:00 61 16 91/54 98 Room Air 08/22/17 14:00 58 16 140/61 98 Room Air 08/22/17 13:40 Mechanical Ventilator 3.0 100 08/22/17 13:00 55 16 126/66 100 08/22/17 12:00 52 08/22/17 12:00 97.7 105 18 116/71 100 08/22/17 11:54 Mechanical Ventilator 3.0 100 08/22/17 11:49 Mechanical Ventilator 08/22/17 11:00 104 20 107/64 100 08/22/17 10:00 101 107/70 100 Height (Feet): 5 Height (Inches): 7.00 Weight (Pounds): 120 General Appearance: no acute distress HEENT: mucous membranes moist Respiratory/Chest: lungs clear Cardiovascular: normal rate, other - [place] Abdomen: soft, non tender, other - NG tube Extremities: no edema Neurologic/Psychiatric: other - more resposive Laboratory Tests Test 08/22/17 13:20 08/23/17 04:30 Prothrombin Time 12.8 SEC (9.30-11.50) H Prothromb Time International Ratio 1.2 (0.9-1.1) H Activated Partial Thromboplast Time 47 SEC (23-33) H White Blood Count 6.5 K/UL (4.8-10.8) Red Blood Count 2.71 M/UL (4.70-6.10) L Hemoglobin 8.9 G/DL (14.2-18.0) L Hematocrit 26.8 % (42.0-52.0) L Mean Corpuscular Volume 99 FL (80-99) Mean Corpuscular Hemoglobin 32.9 PG (27.0-31.0) H Mean Corpuscular Hemoglobin Concent 33.3 G/DL (32.0-36.0) Red Cell Distribution Width 18.2 % (11.6-14.8) H Platelet Count 78 K/UL (150-450) L Mean Platelet Volume 7.1 FL (6.5-10.1) Neutrophils (%) (Auto) % (45.0-75.0) Lymphocytes (%) (Auto) % (20.0-45.0) Monocytes (%) (Auto) % (1.0-10.0) Eosinophils (%) (Auto) % (0.0-3.0) Basophils (%) (Auto) % (0.0-2.0) Sodium Level 142 MMOL/L (136-145) Potassium Level 2.6 MMOL/L (3.5-5.1) *L Chloride Level 103 MMOL/L (98-107) Carbon Dioxide Level 33 MMOL/L (21-32) H Anion Gap 5 mmol/L (5-15) Blood Urea Nitrogen 13 mg/dL (7-18) Creatinine 2.8 MG/DL (0.55-1.30) H Estimat Glomerular Filtration Rate 23.2 mL/min (>60) Glucose Level 93 MG/DL (74-106) Calcium Level 7.5 MG/DL (8.5-10.1) L Phosphorus Level 2.5 MG/DL (2.5-4.9) Magnesium Level 1.6 MG/DL (1.8-2.4) L Total Bilirubin 0.5 MG/DL (0.2-1.0) Aspartate Amino Transf (AST/SGOT) 72 U/L (15-37) H Alanine Aminotransferase (ALT/SGPT) 47 U/L (12-78) Alkaline Phosphatase 78 U/L (46-116) Total Protein 4.9 G/DL (6.4-8.2) L Albumin 1.2 G/DL (3.4-5.0) L Globulin 3.7 g/dL Albumin/Globulin Ratio 0.3 (1.0-2.7) L Current Medications Medications (Trade) Dose Ordered Sig/Srini Route PRN Reason Start Time Stop Time Status Last Admin Dose Admin Acetaminophen (Tylenol) 650 mg Q4H PRN ORAL fever 08/22/17 22:00 09/16/17 21:59 Cefepime HCl 500 mg/Dextrose 55 ml @ 110 mls/hr Q24H IV 08/23/17 18:00 08/28/17 17:59 Chlorhexidine Gluconate (Sandra-Hex 2%) 1 applic DAILY@2000 TOPIC 08/23/17 20:00 09/17/17 19:59 Clonidine HCl (Catapres) 0.1 mg Q4H PRN GT SBP > 160 08/22/17 22:00 09/16/17 21:59 Dextrose 1,000 ml @ 50 mls/hr Q20H IV 08/22/17 22:00 09/19/17 21:59 08/22/17 21:57 Dextrose (Dextrose 50%) STAT PRN IV Hypoglycemia 08/22/17 22:00 09/16/17 21:59 Fluconazole 50 ml @ 50 mls/hr DAILY@1800 IV 08/23/17 18:00 08/27/17 13:59 Levetiracetam 100 ml @ 400 mls/hr Q12HR IVPB 08/23/17 09:00 09/18/17 13:29 Levothyroxine Sodium (Synthroid) 75 mcg ACBREAKFAST GT 08/23/17 06:30 09/21/17 06:29 08/23/17 06:30 Lorazepam (Ativan 2mg/ml 1ml) 0.5 mg Q4H PRN IV For Anxiety 08/22/17 22:00 08/24/17 21:59 Lorazepam (Ativan 2mg/ml 1ml) 1 mg Q4H PRN IV seizure 08/22/17 22:00 08/25/17 21:59 Magnesium Sulfate 100 ml @ 100 mls/hr Q1H IVPB 08/23/17 09:40 08/23/17 11:39 Morphine Sulfate (Morphine Sulfate) 1 mg Q4H PRN IVP Moderate to Severe Pain 08/22/17 22:00 08/24/17 21:59 Ondansetron HCl (Zofran) 4 mg Q6H PRN IVP Nausea & Vomiting 08/22/17 22:00 09/16/17 21:59 Pantoprazole (Protonix) 40 mg EVERY 12 HOURS IVP 08/23/17 09:00 09/20/17 20:59 Polyethylene Glycol (Miralax) 17 gm HSPRN PRN GT Constipation 08/22/17 22:00 09/21/17 21:59 Potassium Chloride 40 meq/ Sodium Chloride 570 ml @ 142.5 mls/ hr ONCE ONCE IVPB 08/23/17 10:20 08/23/17 14:19 Sucralfate (Carafate) 1 gm FOUR TIMES A DAY ORAL 08/23/17 09:00 09/20/17 12:59 Zolpidem Tartrate (Ambien) 5 mg HSPRN PRN GT Insomnia 08/22/17 22:00 08/29/17 21:59 TOYA ENGLISH Aug 23, 2017 10:02
--- NOTE | 2017-08-23 10:03 | General Surgery Progress Note ---
General Surgery-Progress Note Subjective Procedure Performed Wound VAC change for large right hip wound Additional Comments no acute events. doing well. Objective Last 24 Hour Vital Signs Date Time Temp Pulse Resp B/P (MAP) Pulse Ox O2 Delivery O2 Flow Rate FiO2 08/23/17 08:00 97.9 65 21 129/62 94 Room Air 08/23/17 04:00 98.1 56 20 128/64 92 Room Air 08/23/17 04:00 56 08/23/17 00:00 98.0 56 20 103/50 93 Room Air 08/23/17 00:00 56 08/22/17 20:00 52 08/22/17 20:00 97.4 52 18 119/46 94 Room Air 08/22/17 19:00 55 15 125/54 94 Room Air 08/22/17 18:00 58 15 110/54 94 Room Air 08/22/17 17:49 Room Air 3.0 100 08/22/17 17:00 62 15 118/65 94 Room Air 08/22/17 16:00 97.8 55 16 98/35 98 Room Air 08/22/17 16:00 60 08/22/17 15:00 61 16 91/54 98 Room Air 08/22/17 14:00 58 16 140/61 98 Room Air 08/22/17 13:40 Mechanical Ventilator 3.0 100 08/22/17 13:00 55 16 126/66 100 08/22/17 12:00 52 08/22/17 12:00 97.7 105 18 116/71 100 08/22/17 11:54 Mechanical Ventilator 3.0 100 08/22/17 11:49 Mechanical Ventilator 08/22/17 11:00 104 20 107/64 100 Dressing: dry Wound: clean Drains: wound vac Cardiovascular: RSR Respiratory: clear Abdomen: soft, non-tender, present bowel sounds Extremities: no tenderness Laboratory Tests Test 08/22/17 13:20 08/23/17 04:30 Prothrombin Time 12.8 SEC (9.30-11.50) H Prothromb Time International Ratio 1.2 (0.9-1.1) H Activated Partial Thromboplast Time 47 SEC (23-33) H White Blood Count 6.5 K/UL (4.8-10.8) Red Blood Count 2.71 M/UL (4.70-6.10) L Hemoglobin 8.9 G/DL (14.2-18.0) L Hematocrit 26.8 % (42.0-52.0) L Mean Corpuscular Volume 99 FL (80-99) Mean Corpuscular Hemoglobin 32.9 PG (27.0-31.0) H Mean Corpuscular Hemoglobin Concent 33.3 G/DL (32.0-36.0) Red Cell Distribution Width 18.2 % (11.6-14.8) H Platelet Count 78 K/UL (150-450) L Mean Platelet Volume 7.1 FL (6.5-10.1) Neutrophils (%) (Auto) % (45.0-75.0) Lymphocytes (%) (Auto) % (20.0-45.0) Monocytes (%) (Auto) % (1.0-10.0) Eosinophils (%) (Auto) % (0.0-3.0) Basophils (%) (Auto) % (0.0-2.0) Sodium Level 142 MMOL/L (136-145) Potassium Level 2.6 MMOL/L (3.5-5.1) *L Chloride Level 103 MMOL/L (98-107) Carbon Dioxide Level 33 MMOL/L (21-32) H Anion Gap 5 mmol/L (5-15) Blood Urea Nitrogen 13 mg/dL (7-18) Creatinine 2.8 MG/DL (0.55-1.30) H Estimat Glomerular Filtration Rate 23.2 mL/min (>60) Glucose Level 93 MG/DL (74-106) Calcium Level 7.5 MG/DL (8.5-10.1) L Phosphorus Level 2.5 MG/DL (2.5-4.9) Magnesium Level 1.6 MG/DL (1.8-2.4) L Total Bilirubin 0.5 MG/DL (0.2-1.0) Aspartate Amino Transf (AST/SGOT) 72 U/L (15-37) H Alanine Aminotransferase (ALT/SGPT) 47 U/L (12-78) Alkaline Phosphatase 78 U/L (46-116) Total Protein 4.9 G/DL (6.4-8.2) L Albumin 1.2 G/DL (3.4-5.0) L Globulin 3.7 g/dL Albumin/Globulin Ratio 0.3 (1.0-2.7) L Plan Problems: (1) Wound, open, hip or thigh Assessment & Plan: 62M here for medical evaluation and management. has large right lateral hip wound after episode of soft tissue infection requiring large debridement. wound has been managed at outside facility and will be managed by surgery while in hospital. VAC removed wound evaluated. good granulation tissue over large area of debridement. no tissues currently needing debridement. no drainage. no signs of active infection -keep wound clean. continue with VAC q3days at 100mmHg. -next planned change Saturday -will monitor wound with VAC changes. -will do debridement as necessary. thank you for this consultation and allowing me to participate in patients care. will follow with Mauricio Abel Aug 23, 2017 10:03
[2017-08-23] MEDS: Sucralfate 1gm tab ORAL SCH ×4 (10:20→21:58)
[2017-08-23] MEDS ORDERED: Potassium Chloride 40 MEQ in Sodium Chloride 500ML 550 ML IVPB ONE (10:20)
--- NOTE | 2017-08-23 11:52 | Pulmonology Progress Note ---
Assessment/Plan Problems: (1) UGI bleed (2) Anemia (3) Malnutrition (4) Acute renal failure (ARF) Assessment/Plan swallow study pending H/H stable nutrition evaluation. med/surg check labs in am all labs reviewed. Subjective ROS Limited/Unobtainable: No Interval Events: awake, ng tube in place, NPO for swallow study Allergies: Coded Allergies: No Known Allergies (Unverified , 08/17/17) Objective Last 24 Hour Vital Signs Date Time Temp Pulse Resp B/P (MAP) Pulse Ox O2 Delivery O2 Flow Rate FiO2 08/23/17 08:00 97.9 65 21 129/62 94 Room Air 08/23/17 04:00 98.1 56 20 128/64 92 Room Air 08/23/17 04:00 56 08/23/17 00:00 98.0 56 20 103/50 93 Room Air 08/23/17 00:00 56 08/22/17 20:00 52 08/22/17 20:00 97.4 52 18 119/46 94 Room Air 08/22/17 19:00 55 15 125/54 94 Room Air 08/22/17 18:00 58 15 110/54 94 Room Air 08/22/17 17:49 Room Air 3.0 100 08/22/17 17:00 62 15 118/65 94 Room Air 08/22/17 16:00 97.8 55 16 98/35 98 Room Air 08/22/17 16:00 60 08/22/17 15:00 61 16 91/54 98 Room Air 08/22/17 14:00 58 16 140/61 98 Room Air 08/22/17 13:40 Mechanical Ventilator 3.0 100 08/22/17 13:00 55 16 126/66 100 08/22/17 12:00 52 08/22/17 12:00 97.7 105 18 116/71 100 08/22/17 11:54 Mechanical Ventilator 3.0 100 General Appearance: cachetic HEENT: normocephalic, atraumatic Respiratory/Chest: chest wall non-tender, lungs clear Cardiovascular: normal peripheral pulses, normal rate Abdomen: normal bowel sounds, soft, non tender Extremities: no clubbing Skin: no lesions 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, abnormal gait Lymphatic: no neck adenopathy Laboratory Tests 08/22/17 13:20: Prothrombin Time 12.8H, Prothromb Time International Ratio 1.2H, Activated Partial Thromboplast Time 47H 08/23/17 04:30: White Blood Count 6.5, Red Blood Count 2.71L, Hemoglobin 8.9L, Hematocrit 26.8L , Mean Corpuscular Volume 99, Mean Corpuscular Hemoglobin 32.9H, Mean Corpuscular Hemoglobin Concent 33.3, Red Cell Distribution Width 18.2H, Platelet Count 78L, Mean Platelet Volume 7.1, Neutrophils (%) (Auto) , Lymphocytes (%) (Auto) , Monocytes (%) (Auto) , Eosinophils (%) (Auto) , Basophils (%) (Auto) , Sodium Level 142, Potassium Level 2.6*L, Chloride Level 103, Carbon Dioxide Level 33H, Anion Gap 5, Blood Urea Nitrogen 13, Creatinine 2.8H, Estimat Glomerular Filtration Rate 23.2, Glucose Level 93, Calcium Level 7.5L, Phosphorus Level 2.5, Magnesium Level 1.6L, Total Bilirubin 0.5, Aspartate Amino Transf (AST/SGOT) 72H, Alanine Aminotransferase (ALT/SGPT) 47, Alkaline Phosphatase 78, Total Protein 4.9L, Albumin 1.2L, Globulin 3.7, Albumin /Globulin Ratio 0.3L Current Medications Medications (Trade) Dose Ordered Sig/Srini Route PRN Reason Start Time Stop Time Status Last Admin Dose Admin Acetaminophen (Tylenol) 650 mg Q4H PRN ORAL fever 08/22/17 22:00 09/16/17 21:59 Chlorhexidine Gluconate (Sandra-Hex 2%) 1 applic DAILY@2000 TOPIC 08/23/17 20:00 09/17/17 19:59 Clonidine HCl (Catapres) 0.1 mg Q4H PRN GT SBP > 160 08/22/17 22:00 09/16/17 21:59 Dextrose 1,000 ml @ 50 mls/hr Q20H IV 08/22/17 22:00 09/19/17 21:59 08/22/17 21:57 Dextrose (Dextrose 50%) STAT PRN IV Hypoglycemia 08/22/17 22:00 09/16/17 21:59 Fluconazole 50 ml @ 50 mls/hr DAILY@1800 IV 08/23/17 18:00 08/27/17 13:59 Levetiracetam 100 ml @ 400 mls/hr Q12HR IVPB 08/23/17 09:00 09/18/17 13:29 08/23/17 10:12 Levothyroxine Sodium (Synthroid) 75 mcg ACBREAKFAST GT 08/23/17 06:30 09/21/17 06:29 08/23/17 06:30 Lorazepam (Ativan 2mg/ml 1ml) 0.5 mg Q4H PRN IV For Anxiety 08/22/17 22:00 08/24/17 21:59 Lorazepam (Ativan 2mg/ml 1ml) 1 mg Q4H PRN IV seizure 08/22/17 22:00 08/25/17 21:59 Morphine Sulfate (Morphine Sulfate) 1 mg Q4H PRN IVP Moderate to Severe Pain 08/22/17 22:00 08/24/17 21:59 Ondansetron HCl (Zofran) 4 mg Q6H PRN IVP Nausea & Vomiting 08/22/17 22:00 09/16/17 21:59 Pantoprazole (Protonix) 40 mg EVERY 12 HOURS IVP 08/23/17 09:00 09/20/17 20:59 08/23/17 10:21 Polyethylene Glycol (Miralax) 17 gm HSPRN PRN GT Constipation 08/22/17 22:00 09/21/17 21:59 Potassium Chloride 40 meq/ Sodium Chloride 570 ml @ 142.5 mls/ hr ONCE ONCE IVPB 08/23/17 10:20 08/23/17 14:19 08/23/17 10:12 Sucralfate (Carafate) 1 gm FOUR TIMES A DAY ORAL 08/23/17 09:00 09/20/17 12:59 08/23/17 10:20 Zolpidem Tartrate (Ambien) 5 mg HSPRN PRN GT Insomnia 08/22/17 22:00 08/29/17 21:59 MAYRA BAKER Aug 23, 2017 11:52
--- NOTE | 2017-08-23 12:05 | General Progress Note ---
Assessment/Plan Problem List: (1) Lymphoma ICD Codes: C85.90 - Non-Hodgkin lymphoma, unspecified, unspecified site SNOMED: 981382954 (2) Anemia ICD Codes: D64.9 - Anemia, unspecified SNOMED: 340965033 (3) Hypothyroid ICD Codes: E03.9 - Hypothyroidism, unspecified SNOMED: 32930160 (4) Malnutrition ICD Codes: E46 - Unspecified protein-calorie malnutrition SNOMED: 49478859 (5) Altered level of consciousness ICD Codes: R40.4 - Transient alteration of awareness SNOMED: 3457058 (6) Renal failure ICD Codes: N19 - Unspecified kidney failure SNOMED: 56092059 (7) Cellulitis ICD Codes: L03.90 - Cellulitis, unspecified SNOMED: 608808774 Status: unchanged Assessment/Plan ng ot pt diet cbc bmp am, endo eval, ltach eval Subjective Constitutional: Reports: weakness Allergies: Coded Allergies: No Known Allergies (Unverified , 08/17/17) All Systems: reviewed and negative except above Subjective lethargic ng in place sleepy Objective Last 24 Hour Vital Signs Date Time Temp Pulse Resp B/P (MAP) Pulse Ox O2 Delivery O2 Flow Rate FiO2 08/23/17 08:00 97.9 65 21 129/62 94 Room Air 08/23/17 04:00 98.1 56 20 128/64 92 Room Air 08/23/17 04:00 56 08/23/17 00:00 98.0 56 20 103/50 93 Room Air 08/23/17 00:00 56 08/22/17 20:00 52 08/22/17 20:00 97.4 52 18 119/46 94 Room Air 08/22/17 19:00 55 15 125/54 94 Room Air 08/22/17 18:00 58 15 110/54 94 Room Air 08/22/17 17:49 Room Air 3.0 100 08/22/17 17:00 62 15 118/65 94 Room Air 08/22/17 16:00 97.8 55 16 98/35 98 Room Air 08/22/17 16:00 60 08/22/17 15:00 61 16 91/54 98 Room Air 08/22/17 14:00 58 16 140/61 98 Room Air 08/22/17 13:40 Mechanical Ventilator 3.0 100 08/22/17 13:00 55 16 126/66 100 Laboratory Tests 08/22/17 13:20: Prothrombin Time 12.8H, Prothromb Time International Ratio 1.2H, Activated Partial Thromboplast Time 47H 08/23/17 04:30: White Blood Count 6.5, Red Blood Count 2.71L, Hemoglobin 8.9L, Hematocrit 26.8L , Mean Corpuscular Volume 99, Mean Corpuscular Hemoglobin 32.9H, Mean Corpuscular Hemoglobin Concent 33.3, Red Cell Distribution Width 18.2H, Platelet Count 78L, Mean Platelet Volume 7.1, Neutrophils (%) (Auto) , Lymphocytes (%) (Auto) , Monocytes (%) (Auto) , Eosinophils (%) (Auto) , Basophils (%) (Auto) , Sodium Level 142, Potassium Level 2.6*L, Chloride Level 103, Carbon Dioxide Level 33H, Anion Gap 5, Blood Urea Nitrogen 13, Creatinine 2.8H, Estimat Glomerular Filtration Rate 23.2, Glucose Level 93, Calcium Level 7.5L, Phosphorus Level 2.5, Magnesium Level 1.6L, Total Bilirubin 0.5, Aspartate Amino Transf (AST/SGOT) 72H, Alanine Aminotransferase (ALT/SGPT) 47, Alkaline Phosphatase 78, Total Protein 4.9L, Albumin 1.2L, Globulin 3.7, Albumin /Globulin Ratio 0.3L Height (Feet): 5 Height (Inches): 7.00 Weight (Pounds): 120 General Appearance: lethargic EENT: normal ENT inspection Neck: normal alignment Cardiovascular: normal peripheral pulses, normal rate, regular rhythm Respiratory/Chest: chest wall non-tender, lungs clear, normal breath sounds Abdomen: normal bowel sounds, non tender, soft Extremities: normal inspection Edema: no edema noted Arm (L), no edema noted Arm (R), no edema noted Leg (L), no edema noted Leg (R), no edema noted Pedal (L), no edema noted Pedal (R), no edema noted Generalized Neurologic: motor weakness Skin: normal pigmentation, warm/dry ROBERT BANERJEE Aug 23, 2017 12:05
--- NOTE | 2017-08-23 14:24 | GI Progress Note ---
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 Kitchen. Assessment/Plan SUMMARY FINDINGS: 1. Severe friable oozing blood from distal esophagus, most probably from chemo. 2. Gastritis, status post biopsy. RECOMMENDATIONS: fu video swallow today >> consider PEG if indicated Follow up biopsy results and treat accordingly. >> unremarkable, negative for H. Pylori ppi BID + carafate monitor H&H, prn transfusion electrolyte correction abx fu labs Subjective Subjective limited Objective Last 24 Hour Vital Signs Date Time Temp Pulse Resp B/P (MAP) Pulse Ox O2 Delivery O2 Flow Rate FiO2 08/23/17 08:00 97.9 65 21 129/62 94 Room Air 08/23/17 04:00 98.1 56 20 128/64 92 Room Air 08/23/17 04:00 56 08/23/17 00:00 98.0 56 20 103/50 93 Room Air 08/23/17 00:00 56 08/22/17 20:00 52 08/22/17 20:00 97.4 52 18 119/46 94 Room Air 08/22/17 19:00 55 15 125/54 94 Room Air 08/22/17 18:00 58 15 110/54 94 Room Air 08/22/17 17:49 Room Air 3.0 100 08/22/17 17:00 62 15 118/65 94 Room Air 08/22/17 16:00 97.8 55 16 98/35 98 Room Air 08/22/17 16:00 60 08/22/17 15:00 61 16 91/54 98 Room Air Laboratory Tests Test 08/23/17 04:30 White Blood Count 6.5 K/UL (4.8-10.8) Red Blood Count 2.71 M/UL (4.70-6.10) L Hemoglobin 8.9 G/DL (14.2-18.0) L Hematocrit 26.8 % (42.0-52.0) L Mean Corpuscular Volume 99 FL (80-99) Mean Corpuscular Hemoglobin 32.9 PG (27.0-31.0) H Mean Corpuscular Hemoglobin Concent 33.3 G/DL (32.0-36.0) Red Cell Distribution Width 18.2 % (11.6-14.8) H Platelet Count 78 K/UL (150-450) L Mean Platelet Volume 7.1 FL (6.5-10.1) Neutrophils (%) (Auto) % (45.0-75.0) Lymphocytes (%) (Auto) % (20.0-45.0) Monocytes (%) (Auto) % (1.0-10.0) Eosinophils (%) (Auto) % (0.0-3.0) Basophils (%) (Auto) % (0.0-2.0) Sodium Level 142 MMOL/L (136-145) Potassium Level 2.6 MMOL/L (3.5-5.1) *L Chloride Level 103 MMOL/L (98-107) Carbon Dioxide Level 33 MMOL/L (21-32) H Anion Gap 5 mmol/L (5-15) Blood Urea Nitrogen 13 mg/dL (7-18) Creatinine 2.8 MG/DL (0.55-1.30) H Estimat Glomerular Filtration Rate 23.2 mL/min (>60) Glucose Level 93 MG/DL (74-106) Calcium Level 7.5 MG/DL (8.5-10.1) L Phosphorus Level 2.5 MG/DL (2.5-4.9) Magnesium Level 1.6 MG/DL (1.8-2.4) L Total Bilirubin 0.5 MG/DL (0.2-1.0) Aspartate Amino Transf (AST/SGOT) 72 U/L (15-37) H Alanine Aminotransferase (ALT/SGPT) 47 U/L (12-78) Alkaline Phosphatase 78 U/L (46-116) Total Protein 4.9 G/DL (6.4-8.2) L Albumin 1.2 G/DL (3.4-5.0) L Globulin 3.7 g/dL Albumin/Globulin Ratio 0.3 (1.0-2.7) L Height (Feet): 5 Height (Inches): 7.00 Weight (Pounds): 120 General Appearance: no apparent distress, alert, thin Cardiovascular: normal rate Respiratory/Chest: normal breath sounds, no respiratory distress Abdominal Exam: normal bowel sounds, non tender, soft, other - NGT Extremities: non-tender Lou Jarquin N.P. Aug 23, 2017 14:24
--- NOTE | 2017-08-23 15:49 | Cardiac Electrophysiology PN ---
Assessment/Plan Status Narrative Normal left ventricular chamber size, systolic function and wall motion to extent visualized. Left ventricular ejection fraction estimated to be grossly normal. No evidence of left ventricular hypertrophy. No evidence of pericardial effusion. All other cardiac chamber sizes are within normal limits. Focal aortic valve sclerosis with adequate cusp excursion. Thickened mitral valve leaflets with normal excursion. Mild mitral annulus and aortic root calcification. Pulmonic valve not visualized. Normal tricuspid valve structure. IVC at normal size with physiologic collapse. Assessment/Plan 1. Abnormal electrocardiogram with primary T-wave abnormality.1st and 3rd trop were negative and second one 0.7. Due to renal failure and sepsis.Echocardiogram Nl EF. No chest pain or SOB. 2. Metabolic acidosis with carbon dioxide of only 7.Due to renal failure and sepsis 3. BNP of more than 5000. Due to renal failure and volume overload. 4. Renal failure. S/P Tray catheter and HD per Dr. Blakely 5. Hypernatremia. Now on D5W 6. Altered mental status. Head CT showed no acute intracranial bleed, mass effect, or edema. Had MRI brain. LP pending today 7. Hematemesis. S/P EGD by Dr Kitchen today. LINDSEY RN Subjective Subjective HR better. Out of ICU. Awaiting Swallow eval. No chest pain or SOB. Objective Last 24 Hour Vital Signs Date Time Temp Pulse Resp B/P (MAP) Pulse Ox O2 Delivery O2 Flow Rate FiO2 08/23/17 12:00 97.4 57 20 115/65 93 Room Air 08/23/17 12:00 61 08/23/17 08:00 97.9 65 21 129/62 94 Room Air 08/23/17 07:43 56 08/23/17 04:00 98.1 56 20 128/64 92 Room Air 08/23/17 04:00 56 08/23/17 00:00 98.0 56 20 103/50 93 Room Air 08/23/17 00:00 56 08/22/17 20:00 52 08/22/17 20:00 97.4 52 18 119/46 94 Room Air 08/22/17 19:00 55 15 125/54 94 Room Air 08/22/17 18:00 58 15 110/54 94 Room Air 08/22/17 17:49 Room Air 3.0 100 08/22/17 17:00 62 15 118/65 94 Room Air 08/22/17 16:00 97.8 55 16 98/35 98 Room Air 08/22/17 16:00 60 Laboratory Tests Test 08/23/17 04:30 White Blood Count 6.5 K/UL (4.8-10.8) Red Blood Count 2.71 M/UL (4.70-6.10) L Hemoglobin 8.9 G/DL (14.2-18.0) L Hematocrit 26.8 % (42.0-52.0) L Mean Corpuscular Volume 99 FL (80-99) Mean Corpuscular Hemoglobin 32.9 PG (27.0-31.0) H Mean Corpuscular Hemoglobin Concent 33.3 G/DL (32.0-36.0) Red Cell Distribution Width 18.2 % (11.6-14.8) H Platelet Count 78 K/UL (150-450) L Mean Platelet Volume 7.1 FL (6.5-10.1) Neutrophils (%) (Auto) % (45.0-75.0) Lymphocytes (%) (Auto) % (20.0-45.0) Monocytes (%) (Auto) % (1.0-10.0) Eosinophils (%) (Auto) % (0.0-3.0) Basophils (%) (Auto) % (0.0-2.0) Sodium Level 142 MMOL/L (136-145) Potassium Level 2.6 MMOL/L (3.5-5.1) *L Chloride Level 103 MMOL/L (98-107) Carbon Dioxide Level 33 MMOL/L (21-32) H Anion Gap 5 mmol/L (5-15) Blood Urea Nitrogen 13 mg/dL (7-18) Creatinine 2.8 MG/DL (0.55-1.30) H Estimat Glomerular Filtration Rate 23.2 mL/min (>60) Glucose Level 93 MG/DL (74-106) Calcium Level 7.5 MG/DL (8.5-10.1) L Phosphorus Level 2.5 MG/DL (2.5-4.9) Magnesium Level 1.6 MG/DL (1.8-2.4) L Total Bilirubin 0.5 MG/DL (0.2-1.0) Aspartate Amino Transf (AST/SGOT) 72 U/L (15-37) H Alanine Aminotransferase (ALT/SGPT) 47 U/L (12-78) Alkaline Phosphatase 78 U/L (46-116) Total Protein 4.9 G/DL (6.4-8.2) L Albumin 1.2 G/DL (3.4-5.0) L Globulin 3.7 g/dL Albumin/Globulin Ratio 0.3 (1.0-2.7) L Objective HEAD AND NECK: Showed no JVD.NG tube in. Right face scar LUNGS: Clear. CARDIOVASCULAR: Regular. S1 and S2 with no gallop, his chest has a right- sided port. ABDOMEN: Soft. EXTREMITIES: No edema. NICOLÁS PARKINSON Aug 23, 2017 15:49
--- NOTE | 2017-08-23 17:12 | General Progress Note ---
Assessment/Plan Assessment/Plan ASSESSMENT AND RECOMMENDATIONS: 1. Upper GI bleed, s/p egd. GI service following. Monitor H/H and platelet count. 2. Facial lymphoma, status post chemotherapy with radiation. Currently cancer is in remission. Repeat CT of the head no evidence of malignancy. 3. Anemia secondary to chronic disease. Anemia workup has been reviewed. --> transfuse if hgb below 7 --> s/p transfusion 4. Anemia secondary to kidney disease. --> PATTI has improved, likely due to ATN 5. Altered mental status. Neurology service is evaluating the patient. 6. Necrotizing fasciitis, status post wound VAC and surgery, completed 2 weeks ago. --> continue wound care 7. Thrombocytopenia --> monitor closely. Subjective Allergies: Coded Allergies: No Known Allergies (Unverified , 08/17/17) All Systems: reviewed and negative except above Subjective no events overnight Objective Last 24 Hour Vital Signs Date Time Temp Pulse Resp B/P (MAP) Pulse Ox O2 Delivery O2 Flow Rate FiO2 08/23/17 16:00 98.1 58 19 130/64 5 Room Air 08/23/17 12:00 97.4 57 20 115/65 93 Room Air 08/23/17 12:00 61 08/23/17 08:00 97.9 65 21 129/62 94 Room Air 08/23/17 07:43 56 08/23/17 04:00 98.1 56 20 128/64 92 Room Air 08/23/17 04:00 56 08/23/17 00:00 98.0 56 20 103/50 93 Room Air 08/23/17 00:00 56 08/22/17 20:00 52 08/22/17 20:00 97.4 52 18 119/46 94 Room Air 08/22/17 19:00 55 15 125/54 94 Room Air 08/22/17 18:00 58 15 110/54 94 Room Air 08/22/17 17:49 Room Air 3.0 100 Laboratory Tests 08/23/17 04:30: White Blood Count 6.5, Red Blood Count 2.71L, Hemoglobin 8.9L, Hematocrit 26.8L , Mean Corpuscular Volume 99, Mean Corpuscular Hemoglobin 32.9H, Mean Corpuscular Hemoglobin Concent 33.3, Red Cell Distribution Width 18.2H, Platelet Count 78L, Mean Platelet Volume 7.1, Neutrophils (%) (Auto) , Lymphocytes (%) (Auto) , Monocytes (%) (Auto) , Eosinophils (%) (Auto) , Basophils (%) (Auto) , Sodium Level 142, Potassium Level 2.6*L, Chloride Level 103, Carbon Dioxide Level 33H, Anion Gap 5, Blood Urea Nitrogen 13, Creatinine 2.8H, Estimat Glomerular Filtration Rate 23.2, Glucose Level 93, Calcium Level 7.5L, Phosphorus Level 2.5, Magnesium Level 1.6L, Total Bilirubin 0.5, Aspartate Amino Transf (AST/SGOT) 72H, Alanine Aminotransferase (ALT/SGPT) 47, Alkaline Phosphatase 78, Total Protein 4.9L, Albumin 1.2L, Globulin 3.7, Albumin /Globulin Ratio 0.3L Height (Feet): 5 Height (Inches): 7.00 Weight (Pounds): 120 General Appearance: no apparent distress EENT: normal ENT inspection Neck: normal alignment Abdomen: non tender Extremities: non-tender Skin: normal pigmentation Nader Brumfield Aug 23, 2017 17:12
[2017-08-23] MEDS ORDERED: Cefepime HCl 500 MG in D5W 55 ML IV SCH (18:00)
[2017-08-23] MEDS ORDERED: LORazepam Inj 2mg/ml 1ml IV PRN ×2 (18:00)
[2017-08-23] MEDS ORDERED: Miralax 17gm pkt GT PRN (18:10)
[2017-08-23] MEDS ORDERED: Zolpidem 5mg tab GT PRN (18:10)
[2017-08-23] MEDS: Morphine Sulfate 2mg/ml Inj IVP PRN (19:03)
[2017-08-23] MEDS ORDERED: Dyna-Hex 2% Top Sol 2oz TOPIC SCH (20:00)
[2017-08-23] MEDS: Dyna-Hex 2% Top Sol 2oz TOPIC SCH (21:58)
[2017-08-23] MEDS: levETIRAcetam 1,000mg/NS100ml 100 ML IVPB SCH (21:59)
[2017-08-23] MEDS: Pantoprazole Inj IVP SCH (21:59)
[2017-08-24] VITALS: BP 113/69
[2017-08-24 04:00] VITALS: BP 129/73
[2017-08-24] MEDS: Morphine Sulfate 2mg/ml Inj IVP PRN ×3 (04:46→17:17)
--- NOTE | 2017-08-24 07:44 | General Progress Note ---
Assessment/Plan Problem List: (1) Lymphoma ICD Codes: C85.90 - Non-Hodgkin lymphoma, unspecified, unspecified site SNOMED: 854418209 (2) Anemia ICD Codes: D64.9 - Anemia, unspecified SNOMED: 572462524 (3) UGI bleed ICD Codes: K92.2 - Gastrointestinal hemorrhage, unspecified SNOMED: 73383881 Assessment/Plan NGTF pending Video swallow eval Subjective ROS Limited/Unobtainable: No Allergies: Coded Allergies: No Known Allergies (Unverified , 08/17/17) Objective Last 24 Hour Vital Signs Date Time Temp Pulse Resp B/P (MAP) Pulse Ox O2 Delivery O2 Flow Rate FiO2 08/24/17 05:18 98.1 08/24/17 04:00 98.2 59 18 129/73 94 Room Air 08/24/17 00:00 98.1 56 20 113/69 96 Room Air 08/23/17 20:00 97.7 71 20 123/73 97 Room Air 08/23/17 19:02 98.1 68 18 119/41 91 08/23/17 16:00 98.1 58 19 130/64 5 Room Air 08/23/17 12:00 97.4 57 20 115/65 93 Room Air 08/23/17 12:00 61 08/23/17 08:00 97.9 65 21 129/62 94 Room Air Height (Feet): 5 Height (Inches): 7.00 Weight (Pounds): 120 General Appearance: no apparent distress EENT: normal ENT inspection Neck: supple Cardiovascular: normal rate Respiratory/Chest: decreased breath sounds Abdomen: normal bowel sounds, non tender, soft Extremities: non-tender SUE PORTILLO Aug 24, 2017 07:44
[2017-08-24 08:00] VITALS: BP 149/59
--- NOTE | 2017-08-24 09:01 | Nephrology Progress Note ---
Assessment/Plan Problem List: (1) Acute renal failure (ARF) (2) Malnutrition (3) UGI bleed Assessment acute toxic metabolic encephalopathy r/o CVA acute renal failure with possible dehydration Wasted and sever malnutrition Coffee ground vomiting metabolic acidosis e/lyte imbalance intermittent jerks , r/o seizure disorder anemia R facial lymphoma ( on chemo) R left thigh necrotizing fasciitis ( with wound vac) severe protein calorie malnutrition elevated TSH hx of smoking Plan Plan: no labs available yet ! 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 2D Echo- Left ventricular ejection fraction estimated to be grossly normal. Avoid nephrotoxics- Neuro eval transfusion as needed IV protonix Subjective ROS Limited/Unobtainable: No Constitutional: Reports: malaise Objective Objective Last 24 Hour Vital Signs Date Time Temp Pulse Resp B/P (MAP) Pulse Ox O2 Delivery O2 Flow Rate FiO2 08/24/17 05:18 98.1 08/24/17 04:00 98.2 59 18 129/73 94 Room Air 08/24/17 00:00 98.1 56 20 113/69 96 Room Air 08/23/17 20:00 97.7 71 20 123/73 97 Room Air 08/23/17 19:02 98.1 68 18 119/41 91 08/23/17 16:00 98.1 58 19 130/64 5 Room Air 08/23/17 12:00 97.4 57 20 115/65 93 Room Air 08/23/17 12:00 61 Height (Feet): 5 Height (Inches): 7.00 Weight (Pounds): 120 General Appearance: no apparent distress Objective PE not changed RYAN MCCLOUD Aug 24, 2017 09:01
[2017-08-24] MEDS: Pantoprazole Inj IVP SCH ×2 (09:02→20:56)
[2017-08-24] MEDS: Sucralfate 1gm tab ORAL SCH ×4 (09:02→20:55)
[2017-08-24] MEDS: levETIRAcetam 1,000mg/NS100ml 100 ML IVPB SCH ×2 (09:02→20:55)
--- NOTE | 2017-08-24 09:12 | General Progress Note ---
Assessment/Plan Problem List: (1) Lymphoma ICD Codes: C85.90 - Non-Hodgkin lymphoma, unspecified, unspecified site SNOMED: 958637377 (2) Anemia ICD Codes: D64.9 - Anemia, unspecified SNOMED: 154466604 (3) Hypothyroid ICD Codes: E03.9 - Hypothyroidism, unspecified SNOMED: 50514791 (4) Malnutrition ICD Codes: E46 - Unspecified protein-calorie malnutrition SNOMED: 43735706 (5) Altered level of consciousness ICD Codes: R40.4 - Transient alteration of awareness SNOMED: 9707251 (6) Renal failure ICD Codes: N19 - Unspecified kidney failure SNOMED: 64653425 (7) Cellulitis ICD Codes: L03.90 - Cellulitis, unspecified SNOMED: 705363200 Status: stable, progressing, tolerating diet Assessment/Plan ng ot pt diet cbc bmp am, endo eval, ltach eval Subjective Constitutional: Reports: weakness Allergies: Coded Allergies: No Known Allergies (Unverified , 08/17/17) All Systems: reviewed and negative except above Subjective lethargic ng in place sleepy Objective Last 24 Hour Vital Signs Date Time Temp Pulse Resp B/P (MAP) Pulse Ox O2 Delivery O2 Flow Rate FiO2 08/24/17 05:18 98.1 08/24/17 04:00 98.2 59 18 129/73 94 Room Air 08/24/17 00:00 98.1 56 20 113/69 96 Room Air 08/23/17 20:00 97.7 71 20 123/73 97 Room Air 08/23/17 19:02 98.1 68 18 119/41 91 08/23/17 16:00 98.1 58 19 130/64 5 Room Air 08/23/17 12:00 97.4 57 20 115/65 93 Room Air 08/23/17 12:00 61 Height (Feet): 5 Height (Inches): 7.00 Weight (Pounds): 120 General Appearance: lethargic, confused EENT: normal ENT inspection Neck: normal alignment Cardiovascular: normal peripheral pulses, normal rate, regular rhythm Respiratory/Chest: chest wall non-tender, lungs clear, normal breath sounds Abdomen: normal bowel sounds, non tender, soft Extremities: normal inspection Edema: no edema noted Arm (L), no edema noted Arm (R), no edema noted Leg (L), no edema noted Leg (R), no edema noted Pedal (L), no edema noted Pedal (R), no edema noted Generalized Neurologic: motor weakness Skin: normal pigmentation, warm/dry ROBERT BANERJEE Aug 24, 2017 09:12
--- NOTE | 2017-08-24 11:07 | General Surgery Progress Note ---
General Surgery-Progress Note Subjective Procedure Performed Wound VAC change for large right hip wound Symptoms: improved Additional Comments no acute events. VAC functional. Objective Last 24 Hour Vital Signs Date Time Temp Pulse Resp B/P (MAP) Pulse Ox O2 Delivery O2 Flow Rate FiO2 08/24/17 08:00 96.4 51 18 149/59 93 08/24/17 05:18 98.1 08/24/17 04:00 98.2 59 18 129/73 94 Room Air 08/24/17 00:00 98.1 56 20 113/69 96 Room Air 08/23/17 20:00 97.7 71 20 123/73 97 Room Air 08/23/17 19:02 98.1 68 18 119/41 91 08/23/17 16:00 98.1 58 19 130/64 5 Room Air 08/23/17 12:00 97.4 57 20 115/65 93 Room Air 08/23/17 12:00 61 Dressing: dry Wound: clean Drains: wound vac Cardiovascular: RSR Respiratory: clear Abdomen: soft, non-tender, present bowel sounds Extremities: no tenderness Plan Problems: (1) Wound, open, hip or thigh Assessment & Plan: 62M here for medical evaluation and management. has large right lateral hip wound after episode of soft tissue infection requiring large debridement. wound has been managed at outside facility and will be managed by surgery while in hospital. VAC removed wound evaluated. good granulation tissue over large area of debridement. no tissues currently needing debridement. no drainage. no signs of active infection -keep wound clean. continue with VAC q3days at 100mmHg. -next planned change Saturday -will monitor wound with VAC changes. -will do debridement as necessary. -okay to d/c from surgical standpoint and resume wound care at outside facility thank you for this consultation and allowing me to participate in patients care. will follow with Mauricio Abel Aug 24, 2017 11:07
--- NOTE | 2017-08-24 11:14 | Infectious Diseases Prog Note ---
Assessment/Plan Assessment/Plan antibiotics : fluconazole A 1. fungal UTI 2. rectal VRE colonization 3. renal failure 4. hepatitis C 5. GI bleeding 6. facial lymphoma P 1. continue fluconazole 2. will follow up cultures Subjective ROS Limited/Unobtainable: Yes Allergies: Coded Allergies: No Known Allergies (Unverified , 08/17/17) Objective Vital Signs Last 24 Hour Vital Signs Date Time Temp Pulse Resp B/P (MAP) Pulse Ox O2 Delivery O2 Flow Rate FiO2 08/24/17 08:00 96.4 51 18 149/59 93 08/24/17 05:18 98.1 08/24/17 04:00 98.2 59 18 129/73 94 Room Air 08/24/17 00:00 98.1 56 20 113/69 96 Room Air 08/23/17 20:00 97.7 71 20 123/73 97 Room Air 08/23/17 19:02 98.1 68 18 119/41 91 08/23/17 16:00 98.1 58 19 130/64 5 Room Air 08/23/17 12:00 97.4 57 20 115/65 93 Room Air 08/23/17 12:00 61 Height (Feet): 5 Height (Inches): 7.00 Weight (Pounds): 120 Respiratory/Chest: lungs clear Cardiovascular: normal rate, regular rhythm, no gallop/murmur Abdomen: soft, non tender Extremities: no edema, other - right subclavian catheter LUIS OBREGON Aug 24, 2017 11:14
[2017-08-24 12:00] VITALS: BP 150/64
[2017-08-24 13:21] LABS: MEAN CORPUSCULAR HEMOGLOBIN 32.1 PG (27.0-31.0); MEAN CORPUSCULAR HGB CONC 32.2 G/DL (32.0-36.0); MEAN CORPUSCULAR VOLUME 100 FL (80-99); MEAN PLATELET VOLUME 6.7 FL (6.5-10.1); PLATELET COUNT 69 K/UL (150-450); RED BLOOD COUNT 2.76 M/UL (4.70-6.10); RED CELL DISTRIBUTION WIDTH 18.9 % (11.6-14.8); WHITE BLOOD COUNT 7.3 K/UL (4.8-10.8)
[2017-08-24 13:27] LABS: INR 1.2 (0.9-1.1)
[2017-08-24 13:28] LABS: ALANINE AMINOTRANSFERASE 42 U/L (12-78); ALBUMIN/GLOBULIN RATIO 0.3 (1.0-2.7); ANION GAP 3 mmol/L (5-15); ASPARTATE AMINO TRANSFERASE 63 U/L (15-37); CALCIUM 7.4 MG/DL (8.5-10.1); CARBON DIOXIDE 32 MMOL/L (21-32); CHLORIDE 100 MMOL/L (98-107); GLOMERULAR FILTRATION RATE 15.4 mL/min (>60); MAGNESIUM 2.1 MG/DL (1.8-2.4); PHOSPHORUS 2.2 MG/DL (2.5-4.9); SODIUM 133 MMOL/L (136-145)
[2017-08-24 13:31] LABS: POTASSIUM 2.6 MMOL/L (3.5-5.1)
[2017-08-24 13:36] LABS: ANISOCYTOSIS 2+; BAND NEUTROPHILS % (MANUAL) 0 % (0-8); BASOPHILS % (MANUAL) 0 % (0-2); EOSINOPHILS % (MANUAL) 0 % (0-3); HYPOCHROMASIA 2+; LYMPHOCYTES % (MANUAL) 6 % (20-45); NEUTROPHILS % (MANUAL) 88 % (45-75); PLATELET ESTIMATE DECREASED; PLATELET MORPHOLOGY NORMAL; TOTAL CELLS COUNTED 100
[2017-08-24 14:38] LABS: ALANINE AMINOTRANSFERASE 46 U/L (12-78); ALBUMIN/GLOBULIN RATIO 0.3 (1.0-2.7); ANION GAP 8 mmol/L (5-15); ASPARTATE AMINO TRANSFERASE 62 U/L (15-37); CALCIUM 7.6 MG/DL (8.5-10.1); CARBON DIOXIDE 28 MMOL/L (21-32); CHLORIDE 100 MMOL/L (98-107); GLOMERULAR FILTRATION RATE 15.4 mL/min (>60); MAGNESIUM 2.2 MG/DL (1.8-2.4); PHOSPHORUS 2.3 MG/DL (2.5-4.9); SODIUM 137 MMOL/L (136-145); TOTAL PROTEIN 5.1 G/DL (6.4-8.2)
[2017-08-24 14:44] LABS: POTASSIUM 2.6 MMOL/L (3.5-5.1)
[2017-08-24] MEDS ORDERED: Potassium Chloride 40 MEQ in Sodium Chloride 500ML 550 ML IVPB ONE (16:00)
[2017-08-24 16:15] VITALS: BP 132/67
--- NOTE | 2017-08-24 16:36 | Cardiac Electrophysiology PN ---
Assessment/Plan Status Narrative Normal left ventricular chamber size, systolic function and wall motion to extent visualized. Left ventricular ejection fraction estimated to be grossly normal. No evidence of left ventricular hypertrophy. No evidence of pericardial effusion. All other cardiac chamber sizes are within normal limits. Focal aortic valve sclerosis with adequate cusp excursion. Thickened mitral valve leaflets with normal excursion. Mild mitral annulus and aortic root calcification. Pulmonic valve not visualized. Normal tricuspid valve structure. IVC at normal size with physiologic collapse. Assessment/Plan 1. Abnormal electrocardiogram with primary T-wave abnormality.1st and 3rd trop were negative and second one 0.7. Due to renal failure and sepsis.Echocardiogram Nl EF. No chest pain or SOB. 2. Metabolic acidosis with carbon dioxide of only 7.Due to renal failure and sepsis 3. BNP of more than 5000. Due to renal failure and volume overload. 4. Renal failure. S/P Tray catheter and HD per Dr. Blakely 5. Hypernatremia. Now on D5W 6. Altered mental status. Head CT showed no acute intracranial bleed, mass effect, or edema. Had MRI brain. LP still pending 7. Hematemesis. S/P EGD by Dr Kitchen 8. Dysphagia. Video swallow pending DW RN Subjective Subjective Off tele now. No chest pain or SOB.Wants to go home but still has the NG tube in. Objective Last 24 Hour Vital Signs Date Time Temp Pulse Resp B/P (MAP) Pulse Ox O2 Delivery O2 Flow Rate FiO2 08/24/17 16:15 98.3 62 20 132/67 97 Room Air 08/24/17 13:47 96.4 08/24/17 12:00 97.0 54 18 150/64 95 08/24/17 08:00 96.4 51 18 149/59 93 08/24/17 04:00 98.2 59 18 129/73 94 Room Air 08/24/17 00:00 98.1 56 20 113/69 96 Room Air 08/23/17 20:00 97.7 71 20 123/73 97 Room Air 08/23/17 19:02 98.1 68 18 119/41 91 Laboratory Tests Test 08/24/17 13:05 White Blood Count 7.3 K/UL (4.8-10.8) Red Blood Count 2.76 M/UL (4.70-6.10) L Hemoglobin 8.9 G/DL (14.2-18.0) L Hematocrit 27.5 % (42.0-52.0) L Mean Corpuscular Volume 100 FL (80-99) H Mean Corpuscular Hemoglobin 32.1 PG (27.0-31.0) H Mean Corpuscular Hemoglobin Concent 32.2 G/DL (32.0-36.0) Red Cell Distribution Width 18.9 % (11.6-14.8) H Platelet Count 69 K/UL (150-450) L Mean Platelet Volume 6.7 FL (6.5-10.1) Neutrophils (%) (Auto) % (45.0-75.0) Lymphocytes (%) (Auto) % (20.0-45.0) Monocytes (%) (Auto) % (1.0-10.0) Eosinophils (%) (Auto) % (0.0-3.0) Basophils (%) (Auto) % (0.0-2.0) Differential Total Cells Counted 100 Neutrophils % (Manual) 88 % (45-75) H Lymphocytes % (Manual) 6 % (20-45) L Monocytes % (Manual) 6 % (1-10) Eosinophils % (Manual) 0 % (0-3) Basophils % (Manual) 0 % (0-2) Band Neutrophils 0 % (0-8) Platelet Estimate Decreased L Platelet Morphology Normal Hypochromasia 2+ Anisocytosis 2+ Prothrombin Time 13.0 SEC (9.30-11.50) H Prothromb Time International Ratio 1.2 (0.9-1.1) H Activated Partial Thromboplast Time 48 SEC (23-33) H Sodium Level 137 MMOL/L (136-145) Potassium Level 2.6 MMOL/L (3.5-5.1) *L Chloride Level 100 MMOL/L (98-107) Carbon Dioxide Level 28 MMOL/L (21-32) Anion Gap 8 mmol/L (5-15) Blood Urea Nitrogen 21 mg/dL (7-18) H Creatinine 4.0 MG/DL (0.55-1.30) H Estimat Glomerular Filtration Rate 15.4 mL/min (>60) Glucose Level 150 MG/DL (74-106) H Calcium Level 7.6 MG/DL (8.5-10.1) L Phosphorus Level 2.3 MG/DL (2.5-4.9) L Magnesium Level 2.2 MG/DL (1.8-2.4) Total Bilirubin 0.4 MG/DL (0.2-1.0) Aspartate Amino Transf (AST/SGOT) 62 U/L (15-37) H Alanine Aminotransferase (ALT/SGPT) 46 U/L (12-78) Alkaline Phosphatase 106 U/L (46-116) Total Protein 5.1 G/DL (6.4-8.2) L Albumin 1.2 G/DL (3.4-5.0) L Globulin 3.9 g/dL Albumin/Globulin Ratio 0.3 (1.0-2.7) L Objective HEAD AND NECK: No JVD.NG tube in. Right face scar LUNGS: Clear. CARDIOVASCULAR: Regular. S1 and S2 with no gallop, his chest has a right- sided port. ABDOMEN: Soft. EXTREMITIES: No edema. NICOLÁS PARKINSON Aug 24, 2017 16:36
[2017-08-24] MEDS ORDERED: Tubing IV Secondary IV ONE (17:19)
[2017-08-24] MEDS ORDERED: NS 500ML ONE (17:22)
[2017-08-24 20:00] VITALS: BP 107/48
[2017-08-24] MEDS: Dyna-Hex 2% Top Sol 2oz TOPIC SCH (20:55)
--- NOTE | 2017-08-24 21:15 | General Progress Note ---
Assessment/Plan Assessment/Plan ASSESSMENT AND RECOMMENDATIONS: 1. Upper GI bleed, s/p egd. GI service following. Monitor H/H and platelet count. 2. Facial lymphoma, status post chemotherapy with radiation. Currently cancer is in remission. Repeat CT of the head no evidence of malignancy. 3. Anemia secondary to chronic disease. Anemia workup has been reviewed. --> transfuse if hgb below 7 --> s/p transfusion 4. Anemia secondary to kidney disease. --> PATTI has improved, likely due to ATN 5. Altered mental status. Neurology service is evaluating the patient. 6. Necrotizing fasciitis, status post wound VAC and surgery, completed 2 weeks ago. --> continue wound care 7. Thrombocytopenia post surgical--> monitor closely. Plt goal is above 20K. Should improve. Subjective Allergies: Coded Allergies: No Known Allergies (Unverified , 08/17/17) Subjective no events overnight Objective Last 24 Hour Vital Signs Date Time Temp Pulse Resp B/P (MAP) Pulse Ox O2 Delivery O2 Flow Rate FiO2 08/24/17 20:00 97.7 58 20 107/48 100 08/24/17 17:47 98.3 08/24/17 16:15 98.3 62 20 132/67 97 Room Air 08/24/17 12:00 97.0 54 18 150/64 95 08/24/17 08:00 96.4 51 18 149/59 93 08/24/17 04:00 98.2 59 18 129/73 94 Room Air 08/24/17 00:00 98.1 56 20 113/69 96 Room Air Intake and Output 08/24/17 08/25/17 19:00 07:00 Output Total 245 ml Balance -245 ml Output Urine Total 120 ml Drainage Total 125 ml Laboratory Tests 08/24/17 13:05: White Blood Count 7.3, Red Blood Count 2.76L, Hemoglobin 8.9L, Hematocrit 27.5L , Mean Corpuscular Volume 100H, Mean Corpuscular Hemoglobin 32.1H, Mean Corpuscular Hemoglobin Concent 32.2, Red Cell Distribution Width 18.9H, Platelet Count 69L, Mean Platelet Volume 6.7, Neutrophils (%) (Auto) , Lymphocytes (%) (Auto) , Monocytes (%) (Auto) , Eosinophils (%) (Auto) , Basophils (%) (Auto) , Differential Total Cells Counted 100, Neutrophils % ( Manual) 88H, Lymphocytes % (Manual) 6L, Monocytes % (Manual) 6, Eosinophils % ( Manual) 0, Basophils % (Manual) 0, Band Neutrophils 0, Platelet Estimate DecreasedL, Platelet Morphology Normal, Hypochromasia 2+, Anisocytosis 2+, Prothrombin Time 13.0H, Prothromb Time International Ratio 1.2H, Activated Partial Thromboplast Time 48H, Sodium Level 137, Potassium Level 2.6*L, Chloride Level 100, Carbon Dioxide Level 28, Anion Gap 8, Blood Urea Nitrogen 21H, Creatinine 4.0H, Estimat Glomerular Filtration Rate 15.4, Glucose Level 150H, Calcium Level 7.6L, Phosphorus Level 2.3L, Magnesium Level 2.2, Total Bilirubin 0.4, Aspartate Amino Transf (AST/SGOT) 62H, Alanine Aminotransferase ( ALT/SGPT) 46, Alkaline Phosphatase 106, Total Protein 5.1L, Albumin 1.2L, Globulin 3.9, Albumin/Globulin Ratio 0.3L Height (Feet): 5 Height (Inches): 7.00 Weight (Pounds): 120 General Appearance: no apparent distress EENT: normal ENT inspection Neck: normal alignment Cardiovascular: normal peripheral pulses Skin: warm/dry Nader Brumfield Aug 24, 2017 21:15
--- NOTE | 2017-08-24 22:46 | Pulmonology Progress Note ---
Assessment/Plan Problems: (1) UGI bleed (2) Anemia (3) Malnutrition (4) Acute renal failure (ARF) Assessment/Plan no new events swallow study pending H/H stable nutrition evaluation. med/surg check labs in am all labs reviewed. Subjective ROS Limited/Unobtainable: No Constitutional: Reports: no symptoms HEENT: Repors: no symptoms Allergies: Coded Allergies: No Known Allergies (Unverified , 08/17/17) Objective Last 24 Hour Vital Signs Date Time Temp Pulse Resp B/P (MAP) Pulse Ox O2 Delivery O2 Flow Rate FiO2 08/24/17 20:00 97.7 58 20 107/48 100 08/24/17 17:47 98.3 08/24/17 16:15 98.3 62 20 132/67 97 Room Air 08/24/17 12:00 97.0 54 18 150/64 95 08/24/17 08:00 96.4 51 18 149/59 93 08/24/17 04:00 98.2 59 18 129/73 94 Room Air 08/24/17 00:00 98.1 56 20 113/69 96 Room Air Intake and Output 08/24/17 08/25/17 19:00 07:00 Output Total 245 ml Balance -245 ml Output Urine Total 120 ml Drainage Total 125 ml Objective General Appearance: WD/WN HEENT: normocephalic, atraumatic Respiratory/Chest: chest wall non-tender, lungs clear Breasts: no masses Cardiovascular: normal peripheral pulses Abdomen: normal bowel sounds, soft, non tender Genitourinary: normal external genitalia Skin: no rash Laboratory Tests 08/24/17 13:05: White Blood Count 7.3, Red Blood Count 2.76L, Hemoglobin 8.9L, Hematocrit 27.5L , Mean Corpuscular Volume 100H, Mean Corpuscular Hemoglobin 32.1H, Mean Corpuscular Hemoglobin Concent 32.2, Red Cell Distribution Width 18.9H, Platelet Count 69L, Mean Platelet Volume 6.7, Neutrophils (%) (Auto) , Lymphocytes (%) (Auto) , Monocytes (%) (Auto) , Eosinophils (%) (Auto) , Basophils (%) (Auto) , Differential Total Cells Counted 100, Neutrophils % ( Manual) 88H, Lymphocytes % (Manual) 6L, Monocytes % (Manual) 6, Eosinophils % ( Manual) 0, Basophils % (Manual) 0, Band Neutrophils 0, Platelet Estimate DecreasedL, Platelet Morphology Normal, Hypochromasia 2+, Anisocytosis 2+, Prothrombin Time 13.0H, Prothromb Time International Ratio 1.2H, Activated Partial Thromboplast Time 48H, Sodium Level 137, Potassium Level 2.6*L, Chloride Level 100, Carbon Dioxide Level 28, Anion Gap 8, Blood Urea Nitrogen 21H, Creatinine 4.0H, Estimat Glomerular Filtration Rate 15.4, Glucose Level 150H, Calcium Level 7.6L, Phosphorus Level 2.3L, Magnesium Level 2.2, Total Bilirubin 0.4, Aspartate Amino Transf (AST/SGOT) 62H, Alanine Aminotransferase ( ALT/SGPT) 46, Alkaline Phosphatase 106, Total Protein 5.1L, Albumin 1.2L, Globulin 3.9, Albumin/Globulin Ratio 0.3L Current Medications Medications (Trade) Dose Ordered Sig/Srini Route PRN Reason Start Time Stop Time Status Last Admin Dose Admin Acetaminophen (Tylenol) 650 mg Q4H PRN ORAL fever 08/23/17 18:10 09/16/17 18:09 Chlorhexidine Gluconate (Sandra-Hex 2%) 1 applic DAILY@2000 TOPIC 08/23/17 20:00 09/17/17 19:59 08/24/17 20:55 Clonidine HCl (Catapres) 0.1 mg Q4H PRN GT SBP > 160 08/23/17 18:00 09/16/17 21:59 Dextrose 1,000 ml @ 50 mls/hr Q20H IV 08/23/17 18:10 09/19/17 18:09 08/24/17 06:50 Dextrose (Dextrose 50%) STAT PRN IV Hypoglycemia 08/23/17 18:10 09/16/17 18:09 Fluconazole 50 ml @ 50 mls/hr DAILY@1800 IV 08/23/17 18:00 08/27/17 13:59 08/24/17 17:17 Levetiracetam 100 ml @ 400 mls/hr Q12HR IVPB 08/23/17 21:00 09/18/17 13:29 08/24/17 20:55 Levothyroxine Sodium (Synthroid) 75 mcg ACBREAKFAST GT 08/24/17 06:30 09/21/17 06:29 08/24/17 06:45 Lorazepam (Ativan 2mg/ml 1ml) 1 mg Q4H PRN IV seizure 08/23/17 18:00 08/25/17 21:59 Ondansetron HCl (Zofran) 4 mg Q6H PRN IVP Nausea & Vomiting 08/23/17 18:10 09/16/17 18:09 Pantoprazole (Protonix) 40 mg EVERY 12 HOURS IVP 08/23/17 21:00 09/20/17 20:59 08/24/17 20:56 Polyethylene Glycol (Miralax) 17 gm HSPRN PRN GT Constipation 08/23/17 18:10 09/21/17 18:09 Sucralfate (Carafate) 1 gm FOUR TIMES A DAY ORAL 08/23/17 18:00 09/20/17 12:59 08/24/17 20:55 Zolpidem Tartrate (Ambien) 5 mg HSPRN PRN GT Insomnia 08/23/17 18:10 08/29/17 18:09 MAYRA BAKER Aug 24, 2017 22:46
[2017-08-25] VITALS: BP 127/71
[2017-08-25 04:00] VITALS: BP 123/75
--- NOTE | 2017-08-25 06:40 | General Progress Note ---
Assessment/Plan Problem List: (1) Lymphoma ICD Codes: C85.90 - Non-Hodgkin lymphoma, unspecified, unspecified site SNOMED: 190809203 (2) Anemia ICD Codes: D64.9 - Anemia, unspecified SNOMED: 233693762 (3) UGI bleed ICD Codes: K92.2 - Gastrointestinal hemorrhage, unspecified SNOMED: 07620167 Assessment/Plan NGTF pending Video swallow eval Subjective ROS Limited/Unobtainable: No Allergies: Coded Allergies: No Known Allergies (Unverified , 08/17/17) Objective Last 24 Hour Vital Signs Date Time Temp Pulse Resp B/P (MAP) Pulse Ox O2 Delivery O2 Flow Rate FiO2 08/25/17 04:00 99.1 71 21 123/75 95 08/25/17 00:00 97.7 66 20 127/71 94 08/24/17 20:00 97.7 58 20 107/48 100 08/24/17 17:47 98.3 08/24/17 16:15 98.3 62 20 132/67 97 Room Air 08/24/17 12:00 97.0 54 18 150/64 95 08/24/17 08:00 96.4 51 18 149/59 93 Laboratory Tests 08/24/17 13:05: White Blood Count 7.3, Red Blood Count 2.76L, Hemoglobin 8.9L, Hematocrit 27.5L , Mean Corpuscular Volume 100H, Mean Corpuscular Hemoglobin 32.1H, Mean Corpuscular Hemoglobin Concent 32.2, Red Cell Distribution Width 18.9H, Platelet Count 69L, Mean Platelet Volume 6.7, Neutrophils (%) (Auto) , Lymphocytes (%) (Auto) , Monocytes (%) (Auto) , Eosinophils (%) (Auto) , Basophils (%) (Auto) , Differential Total Cells Counted 100, Neutrophils % ( Manual) 88H, Lymphocytes % (Manual) 6L, Monocytes % (Manual) 6, Eosinophils % ( Manual) 0, Basophils % (Manual) 0, Band Neutrophils 0, Platelet Estimate DecreasedL, Platelet Morphology Normal, Hypochromasia 2+, Anisocytosis 2+, Prothrombin Time 13.0H, Prothromb Time International Ratio 1.2H, Activated Partial Thromboplast Time 48H, Sodium Level 137, Potassium Level 2.6*L, Chloride Level 100, Carbon Dioxide Level 28, Anion Gap 8, Blood Urea Nitrogen 21H, Creatinine 4.0H, Estimat Glomerular Filtration Rate 15.4, Glucose Level 150H, Calcium Level 7.6L, Phosphorus Level 2.3L, Magnesium Level 2.2, Total Bilirubin 0.4, Aspartate Amino Transf (AST/SGOT) 62H, Alanine Aminotransferase ( ALT/SGPT) 46, Alkaline Phosphatase 106, Total Protein 5.1L, Albumin 1.2L, Globulin 3.9, Albumin/Globulin Ratio 0.3L Height (Feet): 5 Height (Inches): 7.00 Weight (Pounds): 120 General Appearance: no apparent distress EENT: normal ENT inspection Neck: supple Cardiovascular: normal rate Respiratory/Chest: lungs clear Abdomen: normal bowel sounds, non tender, soft Extremities: non-tender SUE PORTILLO Aug 25, 2017 06:40
--- NOTE | 2017-08-25 08:17 | General Progress Note ---
Assessment/Plan Problem List: (1) Lymphoma ICD Codes: C85.90 - Non-Hodgkin lymphoma, unspecified, unspecified site SNOMED: 383139022 (2) Anemia ICD Codes: D64.9 - Anemia, unspecified SNOMED: 802157538 (3) Hypothyroid ICD Codes: E03.9 - Hypothyroidism, unspecified SNOMED: 42738020 (4) Malnutrition ICD Codes: E46 - Unspecified protein-calorie malnutrition SNOMED: 13591962 (5) Altered level of consciousness ICD Codes: R40.4 - Transient alteration of awareness SNOMED: 3518218 (6) Renal failure ICD Codes: N19 - Unspecified kidney failure SNOMED: 75156328 (7) Cellulitis ICD Codes: L03.90 - Cellulitis, unspecified SNOMED: 835918333 Status: unchanged Assessment/Plan ng ot pt diet cbc bmp am, endo eval, ltach eval Subjective Constitutional: Reports: weakness Allergies: Coded Allergies: No Known Allergies (Unverified , 08/17/17) All Systems: reviewed and negative except above Subjective lethargic ng in place sleepy Objective Last 24 Hour Vital Signs Date Time Temp Pulse Resp B/P (MAP) Pulse Ox O2 Delivery O2 Flow Rate FiO2 08/25/17 04:00 99.1 71 21 123/75 95 08/25/17 00:00 97.7 66 20 127/71 94 08/24/17 20:00 97.7 58 20 107/48 100 08/24/17 17:47 98.3 08/24/17 16:15 98.3 62 20 132/67 97 Room Air 08/24/17 12:00 97.0 54 18 150/64 95 Laboratory Tests 08/24/17 13:05: White Blood Count 7.3, Red Blood Count 2.76L, Hemoglobin 8.9L, Hematocrit 27.5L , Mean Corpuscular Volume 100H, Mean Corpuscular Hemoglobin 32.1H, Mean Corpuscular Hemoglobin Concent 32.2, Red Cell Distribution Width 18.9H, Platelet Count 69L, Mean Platelet Volume 6.7, Neutrophils (%) (Auto) , Lymphocytes (%) (Auto) , Monocytes (%) (Auto) , Eosinophils (%) (Auto) , Basophils (%) (Auto) , Differential Total Cells Counted 100, Neutrophils % ( Manual) 88H, Lymphocytes % (Manual) 6L, Monocytes % (Manual) 6, Eosinophils % ( Manual) 0, Basophils % (Manual) 0, Band Neutrophils 0, Platelet Estimate DecreasedL, Platelet Morphology Normal, Hypochromasia 2+, Anisocytosis 2+, Prothrombin Time 13.0H, Prothromb Time International Ratio 1.2H, Activated Partial Thromboplast Time 48H, Sodium Level 137, Potassium Level 2.6*L, Chloride Level 100, Carbon Dioxide Level 28, Anion Gap 8, Blood Urea Nitrogen 21H, Creatinine 4.0H, Estimat Glomerular Filtration Rate 15.4, Glucose Level 150H, Calcium Level 7.6L, Phosphorus Level 2.3L, Magnesium Level 2.2, Total Bilirubin 0.4, Aspartate Amino Transf (AST/SGOT) 62H, Alanine Aminotransferase ( ALT/SGPT) 46, Alkaline Phosphatase 106, Total Protein 5.1L, Albumin 1.2L, Globulin 3.9, Albumin/Globulin Ratio 0.3L 08/25/17 06:40: White Blood Count [Pending], Red Blood Count [Pending], Hemoglobin [Pending], Hematocrit [Pending], Mean Corpuscular Volume [Pending], Mean Corpuscular Hemoglobin [Pending], Mean Corpuscular Hemoglobin Concent [Pending], Red Cell Distribution Width [Pending], Platelet Count [Pending], Mean Platelet Volume [ Pending], Neutrophils (%) (Auto) [Pending], Lymphocytes (%) (Auto) [Pending], Monocytes (%) (Auto) [Pending], Eosinophils (%) (Auto) [Pending], Basophils (%) (Auto) [Pending], Sodium Level [Pending], Potassium Level [Pending], Chloride Level [Pending], Carbon Dioxide Level [Pending], Blood Urea Nitrogen [Pending], Creatinine [Pending], Estimat Glomerular Filtration Rate [Pending], Glucose Level [Pending], Calcium Level [Pending], Phosphorus Level [Pending], Magnesium Level [Pending], Total Bilirubin [Pending], Aspartate Amino Transf (AST/SGOT) [ Pending], Alanine Aminotransferase (ALT/SGPT) [Pending], Alkaline Phosphatase [ Pending], Total Protein [Pending], Albumin [Pending], Globulin [Pending] Height (Feet): 5 Height (Inches): 7.00 Weight (Pounds): 120 General Appearance: lethargic EENT: normal ENT inspection Neck: normal alignment Cardiovascular: normal peripheral pulses, normal rate, regular rhythm Respiratory/Chest: chest wall non-tender, lungs clear, normal breath sounds Abdomen: normal bowel sounds, non tender, soft Extremities: normal inspection Edema: no edema noted Arm (L), no edema noted Arm (R), no edema noted Leg (L), no edema noted Leg (R), no edema noted Pedal (L), no edema noted Pedal (R), no edema noted Generalized Neurologic: motor weakness Skin: normal pigmentation, warm/dry ROBERT BANERJEE Aug 25, 2017 08:17
[2017-08-25 08:22] LABS: MEAN CORPUSCULAR HEMOGLOBIN 34.1 PG (27.0-31.0); MEAN CORPUSCULAR HGB CONC 34.6 G/DL (32.0-36.0); MEAN CORPUSCULAR VOLUME 98 FL (80-99); MEAN PLATELET VOLUME 7.1 FL (6.5-10.1); PLATELET COUNT 84 K/UL (150-450); RED BLOOD COUNT 2.53 M/UL (4.70-6.10); WHITE BLOOD COUNT 7.2 K/UL (4.8-10.8)
[2017-08-25 08:52] LABS: ALANINE AMINOTRANSFERASE 39 U/L (12-78); ALBUMIN/GLOBULIN RATIO 0.3 (1.0-2.7); ANION GAP 5 mmol/L (5-15); ASPARTATE AMINO TRANSFERASE 59 U/L (15-37); CALCIUM 7.4 MG/DL (8.5-10.1); CARBON DIOXIDE 29 MMOL/L (21-32); CHLORIDE 102 MMOL/L (98-107); CREATININE 4.4 MG/DL (0.55-1.30); GLOMERULAR FILTRATION RATE 13.8 mL/min (>60); PHOSPHORUS 1.9 MG/DL (2.5-4.9); POTASSIUM 3.1 MMOL/L (3.5-5.1); SODIUM 136 MMOL/L (136-145); TOTAL PROTEIN 5.1 G/DL (6.4-8.2)
[2017-08-25] MEDS: Sucralfate 1gm tab ORAL SCH ×4 (09:14→20:52)
[2017-08-25] MEDS: Pantoprazole Inj IVP SCH ×2 (09:15→20:53)
[2017-08-25] MEDS: levETIRAcetam 1,000mg/NS100ml 100 ML IVPB SCH ×2 (09:18→20:53)
[2017-08-25 09:28] LABS: ANISOCYTOSIS 2+; BAND NEUTROPHILS % (MANUAL) 0 % (0-8); BASOPHILS % (MANUAL) 0 % (0-2); EOSINOPHILS % (MANUAL) 0 % (0-3); HYPOCHROMASIA 2+; LYMPHOCYTES % (MANUAL) 8 % (20-45); NEUTROPHILS % (MANUAL) 86 % (45-75); PLATELET ESTIMATE DECREASED; PLATELET MORPHOLOGY NORMAL; SPHEROCYTES 2+; TOTAL CELLS COUNTED 100
--- NOTE | 2017-08-25 10:26 | Infectious Diseases Prog Note ---
Assessment/Plan Assessment/Plan A: Recent necrotizing fascitis of R hip ? Mastoiditis Fungal UTI Acute renal failure CKD History of facial lymphoma Anemia VRE colonization Encephalopathy Hepatitis C Cellular immune deficiency, low CD4 GI bleeding, source esophagus Sinusitis P: Change Fluconazole IV to PO may need prophylaxis for PCP Subjective ROS Limited/Unobtainable: Yes Neurologic: Reports: other - more communicative Allergies: Coded Allergies: No Known Allergies (Unverified , 08/17/17) Objective Vital Signs Last 24 Hour Vital Signs Date Time Temp Pulse Resp B/P (MAP) Pulse Ox O2 Delivery O2 Flow Rate FiO2 08/25/17 04:00 99.1 71 21 123/75 95 08/25/17 00:00 97.7 66 20 127/71 94 08/24/17 20:00 97.7 58 20 107/48 100 08/24/17 17:47 98.3 08/24/17 16:15 98.3 62 20 132/67 97 Room Air 08/24/17 12:00 97.0 54 18 150/64 95 Height (Feet): 5 Height (Inches): 7.00 Weight (Pounds): 120 General Appearance: no acute distress HEENT: other - right face deformity Respiratory/Chest: lungs clear Cardiovascular: normal rate, other - RIJ Tray Abdomen: soft, non tender, other - NG tube Skin: ulcers, other - right hip wound-vac Neurologic/Psychiatric: alert, responsive Laboratory Tests Test 08/24/17 13:05 08/25/17 06:40 White Blood Count 7.3 K/UL (4.8-10.8) 7.2 K/UL (4.8-10.8) Red Blood Count 2.76 M/UL (4.70-6.10) L 2.53 M/UL (4.70-6.10) L Hemoglobin 8.9 G/DL (14.2-18.0) L 8.6 G/DL (14.2-18.0) L Hematocrit 27.5 % (42.0-52.0) L 24.9 % (42.0-52.0) L Mean Corpuscular Volume 100 FL (80-99) H 98 FL (80-99) Mean Corpuscular Hemoglobin 32.1 PG (27.0-31.0) H 34.1 PG (27.0-31.0) H Mean Corpuscular Hemoglobin Concent 32.2 G/DL (32.0-36.0) 34.6 G/DL (32.0-36.0) Red Cell Distribution Width 18.9 % (11.6-14.8) H 19.0 % (11.6-14.8) H Platelet Count 69 K/UL (150-450) L 84 K/UL (150-450) L Mean Platelet Volume 6.7 FL (6.5-10.1) 7.1 FL (6.5-10.1) Neutrophils (%) (Auto) % (45.0-75.0) % (45.0-75.0) Lymphocytes (%) (Auto) % (20.0-45.0) % (20.0-45.0) Monocytes (%) (Auto) % (1.0-10.0) % (1.0-10.0) Eosinophils (%) (Auto) % (0.0-3.0) % (0.0-3.0) Basophils (%) (Auto) % (0.0-2.0) % (0.0-2.0) Differential Total Cells Counted 100 100 Neutrophils % (Manual) 88 % (45-75) H 86 % (45-75) H Lymphocytes % (Manual) 6 % (20-45) L 8 % (20-45) L Monocytes % (Manual) 6 % (1-10) 6 % (1-10) Eosinophils % (Manual) 0 % (0-3) 0 % (0-3) Basophils % (Manual) 0 % (0-2) 0 % (0-2) Band Neutrophils 0 % (0-8) 0 % (0-8) Platelet Estimate Decreased L Decreased L Platelet Morphology Normal Normal Hypochromasia 2+ 2+ Anisocytosis 2+ 2+ Prothrombin Time 13.0 SEC (9.30-11.50) H Prothromb Time International Ratio 1.2 (0.9-1.1) H Activated Partial Thromboplast Time 48 SEC (23-33) H Sodium Level 137 MMOL/L (136-145) 136 MMOL/L (136-145) Potassium Level 2.6 MMOL/L (3.5-5.1) *L 3.1 MMOL/L (3.5-5.1) L Chloride Level 100 MMOL/L (98-107) 102 MMOL/L (98-107) Carbon Dioxide Level 28 MMOL/L (21-32) 29 MMOL/L (21-32) Anion Gap 8 mmol/L (5-15) 5 mmol/L (5-15) Blood Urea Nitrogen 21 mg/dL (7-18) H 26 mg/dL (7-18) H Creatinine 4.0 MG/DL (0.55-1.30) H 4.4 MG/DL (0.55-1.30) H Estimat Glomerular Filtration Rate 15.4 mL/min (>60) 13.8 mL/min (>60) Glucose Level 150 MG/DL (74-106) H 143 MG/DL (74-106) H Calcium Level 7.6 MG/DL (8.5-10.1) L 7.4 MG/DL (8.5-10.1) L Phosphorus Level 2.3 MG/DL (2.5-4.9) L 1.9 MG/DL (2.5-4.9) L Magnesium Level 2.2 MG/DL (1.8-2.4) 2.0 MG/DL (1.8-2.4) Total Bilirubin 0.4 MG/DL (0.2-1.0) 0.3 MG/DL (0.2-1.0) Aspartate Amino Transf (AST/SGOT) 62 U/L (15-37) H 59 U/L (15-37) H Alanine Aminotransferase (ALT/SGPT) 46 U/L (12-78) 39 U/L (12-78) Alkaline Phosphatase 106 U/L (46-116) 141 U/L (46-116) H Total Protein 5.1 G/DL (6.4-8.2) L 5.1 G/DL (6.4-8.2) L Albumin 1.2 G/DL (3.4-5.0) L 1.2 G/DL (3.4-5.0) L Globulin 3.9 g/dL 3.9 g/dL Albumin/Globulin Ratio 0.3 (1.0-2.7) L 0.3 (1.0-2.7) L Spherocytes 2+ Current Medications Medications (Trade) Dose Ordered Sig/Srini Route PRN Reason Start Time Stop Time Status Last Admin Dose Admin Acetaminophen (Tylenol) 650 mg Q4H PRN ORAL fever 08/23/17 18:10 09/16/17 18:09 Chlorhexidine Gluconate (Sandra-Hex 2%) 1 applic DAILY@2000 TOPIC 08/23/17 20:00 09/17/17 19:59 08/24/17 20:55 Clonidine HCl (Catapres) 0.1 mg Q4H PRN GT SBP > 160 08/23/17 18:00 09/16/17 21:59 Dextrose 1,000 ml @ 50 mls/hr Q20H IV 08/23/17 18:10 09/19/17 18:09 08/25/17 00:20 Dextrose (Dextrose 50%) STAT PRN IV Hypoglycemia 08/23/17 18:10 09/16/17 18:09 Fluconazole 50 ml @ 50 mls/hr DAILY@1800 IV 08/23/17 18:00 08/27/17 13:59 08/24/17 17:17 Levetiracetam 100 ml @ 400 mls/hr Q12HR IVPB 08/23/17 21:00 09/18/17 13:29 08/25/17 09:18 Levothyroxine Sodium (Synthroid) 75 mcg ACBREAKFAST GT 08/24/17 06:30 09/21/17 06:29 08/25/17 06:30 Lorazepam (Ativan 2mg/ml 1ml) 1 mg Q4H PRN IV seizure 08/23/17 18:00 08/25/17 21:59 Ondansetron HCl (Zofran) 4 mg Q6H PRN IVP Nausea & Vomiting 08/23/17 18:10 09/16/17 18:09 Pantoprazole (Protonix) 40 mg EVERY 12 HOURS IVP 08/23/17 21:00 09/20/17 20:59 08/25/17 09:15 Polyethylene Glycol (Miralax) 17 gm HSPRN PRN GT Constipation 08/23/17 18:10 09/21/17 18:09 Potassium Chloride (K-Dur) 40 meq ONCE ONCE ORAL 08/25/17 10:15 08/25/17 10:16 UNV Sucralfate (Carafate) 1 gm FOUR TIMES A DAY ORAL 08/23/17 18:00 09/20/17 12:59 08/25/17 09:14 Zolpidem Tartrate (Ambien) 5 mg HSPRN PRN GT Insomnia 08/23/17 18:10 08/29/17 18:09 TOYA ENGLISH Aug 25, 2017 10:26
--- NOTE | 2017-08-25 11:18 | Nephrology Progress Note ---
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 2D Echo- Left ventricular ejection fraction estimated to be grossly normal. Avoid nephrotoxics- Neuro eval transfusion as needed IV protonix Subjective ROS Limited/Unobtainable: No Constitutional: Reports: malaise Objective Objective Last 24 Hour Vital Signs Date Time Temp Pulse Resp B/P (MAP) Pulse Ox O2 Delivery O2 Flow Rate FiO2 08/25/17 04:00 99.1 71 21 123/75 95 08/25/17 00:00 97.7 66 20 127/71 94 08/24/17 20:00 97.7 58 20 107/48 100 08/24/17 17:47 98.3 08/24/17 16:15 98.3 62 20 132/67 97 Room Air 08/24/17 12:00 97.0 54 18 150/64 95 Laboratory Tests 08/24/17 13:05: White Blood Count 7.3, Red Blood Count 2.76L, Hemoglobin 8.9L, Hematocrit 27.5L , Mean Corpuscular Volume 100H, Mean Corpuscular Hemoglobin 32.1H, Mean Corpuscular Hemoglobin Concent 32.2, Red Cell Distribution Width 18.9H, Platelet Count 69L, Mean Platelet Volume 6.7, Neutrophils (%) (Auto) , Lymphocytes (%) (Auto) , Monocytes (%) (Auto) , Eosinophils (%) (Auto) , Basophils (%) (Auto) , Differential Total Cells Counted 100, Neutrophils % ( Manual) 88H, Lymphocytes % (Manual) 6L, Monocytes % (Manual) 6, Eosinophils % ( Manual) 0, Basophils % (Manual) 0, Band Neutrophils 0, Platelet Estimate DecreasedL, Platelet Morphology Normal, Hypochromasia 2+, Anisocytosis 2+, Prothrombin Time 13.0H, Prothromb Time International Ratio 1.2H, Activated Partial Thromboplast Time 48H, Sodium Level 137, Potassium Level 2.6*L, Chloride Level 100, Carbon Dioxide Level 28, Anion Gap 8, Blood Urea Nitrogen 21H, Creatinine 4.0H, Estimat Glomerular Filtration Rate 15.4, Glucose Level 150H, Calcium Level 7.6L, Phosphorus Level 2.3L, Magnesium Level 2.2, Total Bilirubin 0.4, Aspartate Amino Transf (AST/SGOT) 62H, Alanine Aminotransferase ( ALT/SGPT) 46, Alkaline Phosphatase 106, Total Protein 5.1L, Albumin 1.2L, Globulin 3.9, Albumin/Globulin Ratio 0.3L 08/25/17 06:40: White Blood Count 7.2, Red Blood Count 2.53L, Hemoglobin 8.6L, Hematocrit 24.9L , Mean Corpuscular Volume 98, Mean Corpuscular Hemoglobin 34.1H, Mean Corpuscular Hemoglobin Concent 34.6, Red Cell Distribution Width 19.0H, Platelet Count 84L, Mean Platelet Volume 7.1, Neutrophils (%) (Auto) , Lymphocytes (%) (Auto) , Monocytes (%) (Auto) , Eosinophils (%) (Auto) , Basophils (%) (Auto) , Differential Total Cells Counted 100, Neutrophils % ( Manual) 86H, Lymphocytes % (Manual) 8L, Monocytes % (Manual) 6, Eosinophils % ( Manual) 0, Basophils % (Manual) 0, Band Neutrophils 0, Platelet Estimate DecreasedL, Platelet Morphology Normal, Hypochromasia 2+, Anisocytosis 2+, Sodium Level 136, Potassium Level 3.1L, Chloride Level 102, Carbon Dioxide Level 29, Anion Gap 5, Blood Urea Nitrogen 26H, Creatinine 4.4H, Estimat Glomerular Filtration Rate 13.8, Glucose Level 143H, Calcium Level 7.4L, Phosphorus Level 1.9L, Magnesium Level 2.0, Total Bilirubin 0.3, Aspartate Amino Transf (AST/SGOT) 59H, Alanine Aminotransferase (ALT/SGPT) 39, Alkaline Phosphatase 141H, Total Protein 5.1L, Albumin 1.2L, Globulin 3.9, Albumin/ Globulin Ratio 0.3L, Spherocytes 2+ Height (Feet): 5 Height (Inches): 7.00 Weight (Pounds): 120 General Appearance: no apparent distress Objective PE not changed RYAN MCCLOUD Aug 25, 2017 11:18
[2017-08-25 12:00] VITALS: BP 126/75
[2017-08-25] MEDS ORDERED: Sodium Phosphate 15 MM in NS 275 ML IVPB ONE (12:30)
--- NOTE | 2017-08-25 12:37 | General Surgery Progress Note ---
General Surgery-Progress Note Subjective Procedure Performed Wound VAC change for large right hip wound Additional Comments VAC functional without issues. drainage serous. wound clean Objective Last 24 Hour Vital Signs Date Time Temp Pulse Resp B/P (MAP) Pulse Ox O2 Delivery O2 Flow Rate FiO2 08/25/17 04:00 99.1 71 21 123/75 95 08/25/17 00:00 97.7 66 20 127/71 94 08/24/17 20:00 97.7 58 20 107/48 100 08/24/17 17:47 98.3 08/24/17 16:15 98.3 62 20 132/67 97 Room Air Drains: wound vac Laboratory Tests Test 08/24/17 13:05 08/25/17 06:40 White Blood Count 7.3 K/UL (4.8-10.8) 7.2 K/UL (4.8-10.8) Red Blood Count 2.76 M/UL (4.70-6.10) L 2.53 M/UL (4.70-6.10) L Hemoglobin 8.9 G/DL (14.2-18.0) L 8.6 G/DL (14.2-18.0) L Hematocrit 27.5 % (42.0-52.0) L 24.9 % (42.0-52.0) L Mean Corpuscular Volume 100 FL (80-99) H 98 FL (80-99) Mean Corpuscular Hemoglobin 32.1 PG (27.0-31.0) H 34.1 PG (27.0-31.0) H Mean Corpuscular Hemoglobin Concent 32.2 G/DL (32.0-36.0) 34.6 G/DL (32.0-36.0) Red Cell Distribution Width 18.9 % (11.6-14.8) H 19.0 % (11.6-14.8) H Platelet Count 69 K/UL (150-450) L 84 K/UL (150-450) L Mean Platelet Volume 6.7 FL (6.5-10.1) 7.1 FL (6.5-10.1) Neutrophils (%) (Auto) % (45.0-75.0) % (45.0-75.0) Lymphocytes (%) (Auto) % (20.0-45.0) % (20.0-45.0) Monocytes (%) (Auto) % (1.0-10.0) % (1.0-10.0) Eosinophils (%) (Auto) % (0.0-3.0) % (0.0-3.0) Basophils (%) (Auto) % (0.0-2.0) % (0.0-2.0) Differential Total Cells Counted 100 100 Neutrophils % (Manual) 88 % (45-75) H 86 % (45-75) H Lymphocytes % (Manual) 6 % (20-45) L 8 % (20-45) L Monocytes % (Manual) 6 % (1-10) 6 % (1-10) Eosinophils % (Manual) 0 % (0-3) 0 % (0-3) Basophils % (Manual) 0 % (0-2) 0 % (0-2) Band Neutrophils 0 % (0-8) 0 % (0-8) Platelet Estimate Decreased L Decreased L Platelet Morphology Normal Normal Hypochromasia 2+ 2+ Anisocytosis 2+ 2+ Prothrombin Time 13.0 SEC (9.30-11.50) H Prothromb Time International Ratio 1.2 (0.9-1.1) H Activated Partial Thromboplast Time 48 SEC (23-33) H Sodium Level 137 MMOL/L (136-145) 136 MMOL/L (136-145) Potassium Level 2.6 MMOL/L (3.5-5.1) *L 3.1 MMOL/L (3.5-5.1) L Chloride Level 100 MMOL/L (98-107) 102 MMOL/L (98-107) Carbon Dioxide Level 28 MMOL/L (21-32) 29 MMOL/L (21-32) Anion Gap 8 mmol/L (5-15) 5 mmol/L (5-15) Blood Urea Nitrogen 21 mg/dL (7-18) H 26 mg/dL (7-18) H Creatinine 4.0 MG/DL (0.55-1.30) H 4.4 MG/DL (0.55-1.30) H Estimat Glomerular Filtration Rate 15.4 mL/min (>60) 13.8 mL/min (>60) Glucose Level 150 MG/DL (74-106) H 143 MG/DL (74-106) H Calcium Level 7.6 MG/DL (8.5-10.1) L 7.4 MG/DL (8.5-10.1) L Phosphorus Level 2.3 MG/DL (2.5-4.9) L 1.9 MG/DL (2.5-4.9) L Magnesium Level 2.2 MG/DL (1.8-2.4) 2.0 MG/DL (1.8-2.4) Total Bilirubin 0.4 MG/DL (0.2-1.0) 0.3 MG/DL (0.2-1.0) Aspartate Amino Transf (AST/SGOT) 62 U/L (15-37) H 59 U/L (15-37) H Alanine Aminotransferase (ALT/SGPT) 46 U/L (12-78) 39 U/L (12-78) Alkaline Phosphatase 106 U/L (46-116) 141 U/L (46-116) H Total Protein 5.1 G/DL (6.4-8.2) L 5.1 G/DL (6.4-8.2) L Albumin 1.2 G/DL (3.4-5.0) L 1.2 G/DL (3.4-5.0) L Globulin 3.9 g/dL 3.9 g/dL Albumin/Globulin Ratio 0.3 (1.0-2.7) L 0.3 (1.0-2.7) L Spherocytes 2+ Plan Problems: (1) Wound, open, hip or thigh Assessment & Plan: 62M here for medical evaluation and management. has large right lateral hip wound after episode of soft tissue infection requiring large debridement. wound has been managed at outside facility and will be managed by surgery while in hospital. VAC removed wound evaluated. good granulation tissue over large area of debridement. no tissues currently needing debridement. no drainage. no signs of active infection -keep wound clean. continue with VAC q3days at 100mmHg. -next planned change Saturday -will monitor wound with VAC changes. -will do debridement as necessary. thank you for this consultation and allowing me to participate in patients care. will follow with Mauricio Abel Aug 25, 2017 12:37
[2017-08-25] MEDS: Morphine Sulfate 2mg/ml Inj IVP PRN ×3 (12:45→23:59)
--- NOTE | 2017-08-25 12:59 | General Progress Note ---
Assessment/Plan Assessment/Plan ASSESSMENT AND RECOMMENDATIONS: 1. Upper GI bleed, s/p egd. GI service following. NGTF. Pending swallow eval. Monitor H/H and platelet count. 2. Facial lymphoma, status post chemotherapy with radiation. Currently cancer is in remission. Repeat CT of the head no evidence of malignancy. 3. Anemia secondary to chronic disease. Anemia workup has been reviewed. --> transfuse if hgb below 7 --> s/p transfusion 4. Anemia secondary to kidney disease. --> PATTI has improved, likely due to ATN 5. Altered mental status. Neurology service is evaluating the patient. 6. Necrotizing fasciitis, status post wound VAC and surgery, completed 2 weeks ago. --> continue wound care 7. Thrombocytopenia post surgical--> monitor closely. Plt goal is above 20K. Should improve. Subjective Allergies: Coded Allergies: No Known Allergies (Unverified , 08/17/17) All Systems: reviewed and negative except above Subjective no events overnight, ngtf Objective Last 24 Hour Vital Signs Date Time Temp Pulse Resp B/P (MAP) Pulse Ox O2 Delivery O2 Flow Rate FiO2 08/25/17 12:00 98.8 73 20 126/75 97 Room Air 08/25/17 04:00 99.1 71 21 123/75 95 08/25/17 00:00 97.7 66 20 127/71 94 08/24/17 20:00 97.7 58 20 107/48 100 08/24/17 17:47 98.3 08/24/17 16:15 98.3 62 20 132/67 97 Room Air Laboratory Tests 08/24/17 13:05: White Blood Count 7.3, Red Blood Count 2.76L, Hemoglobin 8.9L, Hematocrit 27.5L , Mean Corpuscular Volume 100H, Mean Corpuscular Hemoglobin 32.1H, Mean Corpuscular Hemoglobin Concent 32.2, Red Cell Distribution Width 18.9H, Platelet Count 69L, Mean Platelet Volume 6.7, Neutrophils (%) (Auto) , Lymphocytes (%) (Auto) , Monocytes (%) (Auto) , Eosinophils (%) (Auto) , Basophils (%) (Auto) , Differential Total Cells Counted 100, Neutrophils % ( Manual) 88H, Lymphocytes % (Manual) 6L, Monocytes % (Manual) 6, Eosinophils % ( Manual) 0, Basophils % (Manual) 0, Band Neutrophils 0, Platelet Estimate DecreasedL, Platelet Morphology Normal, Hypochromasia 2+, Anisocytosis 2+, Prothrombin Time 13.0H, Prothromb Time International Ratio 1.2H, Activated Partial Thromboplast Time 48H, Sodium Level 137, Potassium Level 2.6*L, Chloride Level 100, Carbon Dioxide Level 28, Anion Gap 8, Blood Urea Nitrogen 21H, Creatinine 4.0H, Estimat Glomerular Filtration Rate 15.4, Glucose Level 150H, Calcium Level 7.6L, Phosphorus Level 2.3L, Magnesium Level 2.2, Total Bilirubin 0.4, Aspartate Amino Transf (AST/SGOT) 62H, Alanine Aminotransferase ( ALT/SGPT) 46, Alkaline Phosphatase 106, Total Protein 5.1L, Albumin 1.2L, Globulin 3.9, Albumin/Globulin Ratio 0.3L 08/25/17 06:40: White Blood Count 7.2, Red Blood Count 2.53L, Hemoglobin 8.6L, Hematocrit 24.9L , Mean Corpuscular Volume 98, Mean Corpuscular Hemoglobin 34.1H, Mean Corpuscular Hemoglobin Concent 34.6, Red Cell Distribution Width 19.0H, Platelet Count 84L, Mean Platelet Volume 7.1, Neutrophils (%) (Auto) , Lymphocytes (%) (Auto) , Monocytes (%) (Auto) , Eosinophils (%) (Auto) , Basophils (%) (Auto) , Differential Total Cells Counted 100, Neutrophils % ( Manual) 86H, Lymphocytes % (Manual) 8L, Monocytes % (Manual) 6, Eosinophils % ( Manual) 0, Basophils % (Manual) 0, Band Neutrophils 0, Platelet Estimate DecreasedL, Platelet Morphology Normal, Hypochromasia 2+, Anisocytosis 2+, Sodium Level 136, Potassium Level 3.1L, Chloride Level 102, Carbon Dioxide Level 29, Anion Gap 5, Blood Urea Nitrogen 26H, Creatinine 4.4H, Estimat Glomerular Filtration Rate 13.8, Glucose Level 143H, Calcium Level 7.4L, Phosphorus Level 1.9L, Magnesium Level 2.0, Total Bilirubin 0.3, Aspartate Amino Transf (AST/SGOT) 59H, Alanine Aminotransferase (ALT/SGPT) 39, Alkaline Phosphatase 141H, Total Protein 5.1L, Albumin 1.2L, Globulin 3.9, Albumin/ Globulin Ratio 0.3L, Spherocytes 2+ Height (Feet): 5 Height (Inches): 7.00 Weight (Pounds): 120 General Appearance: no apparent distress EENT: TMs normal Neck: normal alignment Cardiovascular: normal rate Edema: mild edema Skin: normal pigmentation Nader Brumfield Aug 25, 2017 12:59
[2017-08-25 16:00] VITALS: BP 130/74
--- NOTE | 2017-08-25 17:47 | Pulmonology Progress Note ---
Assessment/Plan Problems: (1) UGI bleed (2) Anemia (3) Malnutrition (4) Acute renal failure (ARF) Assessment/Plan no new events swallow study pending diflucan was added nutrition evaluation. med/surg check labs in am all labs reviewed. Subjective ROS Limited/Unobtainable: No HEENT: Repors: no symptoms Respiratory: Reports: no symptoms Allergies: Coded Allergies: No Known Allergies (Unverified , 08/17/17) Objective Last 24 Hour Vital Signs Date Time Temp Pulse Resp B/P (MAP) Pulse Ox O2 Delivery O2 Flow Rate FiO2 08/25/17 16:04 Room Air 3.0 100 08/25/17 16:02 Room Air 3.0 100 08/25/17 16:00 98.0 91 20 130/74 97 08/25/17 13:15 98.8 08/25/17 12:25 Room Air 3.0 100 08/25/17 12:00 98.8 73 20 126/75 97 Room Air 08/25/17 04:00 99.1 71 21 123/75 95 08/25/17 00:00 97.7 66 20 127/71 94 08/24/17 20:00 97.7 58 20 107/48 100 08/24/17 17:47 98.3 Intake and Output 08/25/17 08/26/17 19:00 07:00 Output Total 1100 ml Balance -1100 ml Hemodialysis UF 1100 ml Objective General Appearance: WD/WN HEENT: normocephalic, atraumatic Respiratory/Chest: chest wall non-tender, lungs clear Breasts: no masses Cardiovascular: normal peripheral pulses Abdomen: normal bowel sounds, soft, non tender Genitourinary: normal external genitalia Skin: no rash Laboratory Tests 08/25/17 06:40: White Blood Count 7.2, Red Blood Count 2.53L, Hemoglobin 8.6L, Hematocrit 24.9L , Mean Corpuscular Volume 98, Mean Corpuscular Hemoglobin 34.1H, Mean Corpuscular Hemoglobin Concent 34.6, Red Cell Distribution Width 19.0H, Platelet Count 84L, Mean Platelet Volume 7.1, Neutrophils (%) (Auto) , Lymphocytes (%) (Auto) , Monocytes (%) (Auto) , Eosinophils (%) (Auto) , Basophils (%) (Auto) , Differential Total Cells Counted 100, Neutrophils % ( Manual) 86H, Lymphocytes % (Manual) 8L, Monocytes % (Manual) 6, Eosinophils % ( Manual) 0, Basophils % (Manual) 0, Band Neutrophils 0, Platelet Estimate DecreasedL, Platelet Morphology Normal, Hypochromasia 2+, Anisocytosis 2+, Spherocytes 2+, Sodium Level 136, Potassium Level 3.1L, Chloride Level 102, Carbon Dioxide Level 29, Anion Gap 5, Blood Urea Nitrogen 26H, Creatinine 4.4H, Estimat Glomerular Filtration Rate 13.8, Glucose Level 143H, Calcium Level 7.4L , Phosphorus Level 1.9L, Magnesium Level 2.0, Total Bilirubin 0.3, Aspartate Amino Transf (AST/SGOT) 59H, Alanine Aminotransferase (ALT/SGPT) 39, Alkaline Phosphatase 141H, Total Protein 5.1L, Albumin 1.2L, Globulin 3.9, Albumin/ Globulin Ratio 0.3L Current Medications Medications (Trade) Dose Ordered Sig/Srini Route PRN Reason Start Time Stop Time Status Last Admin Dose Admin Acetaminophen (Tylenol) 650 mg Q4H PRN ORAL fever 08/23/17 18:10 09/16/17 18:09 Chlorhexidine Gluconate (Sandra-Hex 2%) 1 applic DAILY@2000 TOPIC 08/23/17 20:00 09/17/17 19:59 08/24/17 20:55 Clonidine HCl (Catapres) 0.1 mg Q4H PRN GT SBP > 160 08/23/17 18:00 09/16/17 21:59 Dextrose 1,000 ml @ 50 mls/hr Q20H IV 08/23/17 18:10 09/19/17 18:09 08/25/17 00:20 Dextrose (Dextrose 50%) STAT PRN IV Hypoglycemia 08/23/17 18:10 09/16/17 18:09 Fluconazole (Diflucan) 100 mg DAILY@1800 NG 08/25/17 18:00 09/01/17 17:59 Levetiracetam 100 ml @ 400 mls/hr Q12HR IVPB 08/23/17 21:00 09/18/17 13:29 08/25/17 09:18 Levothyroxine Sodium (Synthroid) 75 mcg ACBREAKFAST GT 08/24/17 06:30 09/21/17 06:29 08/25/17 06:30 Lorazepam (Ativan 2mg/ml 1ml) 1 mg Q4H PRN IV seizure 08/23/17 18:00 08/25/17 21:59 Morphine Sulfate (Morphine Sulfate) 2 mg Q4H PRN IVP For Pain 08/25/17 12:45 09/01/17 12:44 08/25/17 12:45 Ondansetron HCl (Zofran) 4 mg Q6H PRN IVP Nausea & Vomiting 08/23/17 18:10 09/16/17 18:09 Pantoprazole (Protonix) 40 mg EVERY 12 HOURS IVP 08/23/17 21:00 09/20/17 20:59 08/25/17 09:15 Polyethylene Glycol (Miralax) 17 gm HSPRN PRN GT Constipation 08/23/17 18:10 09/21/17 18:09 Sucralfate (Carafate) 1 gm FOUR TIMES A DAY ORAL 08/23/17 18:00 09/20/17 12:59 08/25/17 12:13 Zolpidem Tartrate (Ambien) 5 mg HSPRN PRN GT Insomnia 08/23/17 18:10 08/29/17 18:09 MAYRA BAKER Aug 25, 2017 17:47
[2017-08-25] MEDS: Fluconazole 100mg tab NG SCH (17:48)
[2017-08-25 20:00] VITALS: BP 101/62
[2017-08-25] MEDS: Dyna-Hex 2% Top Sol 2oz TOPIC SCH (20:52)
[2017-08-26] VITALS: BP 107/68
[2017-08-26 04:00] VITALS: BP 112/71
[2017-08-26 06:43] LABS: MEAN CORPUSCULAR HEMOGLOBIN 34.5 PG (27.0-31.0); MEAN CORPUSCULAR HGB CONC 34.8 G/DL (32.0-36.0); MEAN CORPUSCULAR VOLUME 99 FL (80-99); MEAN PLATELET VOLUME 8.4 FL (6.5-10.1); PLATELET COUNT 46 K/UL (150-450); RED BLOOD COUNT 2.26 M/UL (4.70-6.10); RED CELL DISTRIBUTION WIDTH 19.2 % (11.6-14.8); WHITE BLOOD COUNT 7.8 K/UL (4.8-10.8)
[2017-08-26 07:59] LABS: ALANINE AMINOTRANSFERASE 40 U/L (12-78); ALBUMIN/GLOBULIN RATIO 0.3 (1.0-2.7); ANION GAP 5 mmol/L (5-15); ASPARTATE AMINO TRANSFERASE 59 U/L (15-37); BILIRUBIN,DIRECT 0.1 MG/DL (0.0-0.3); CALCIUM 7.3 MG/DL (8.5-10.1); CARBON DIOXIDE 30 MMOL/L (21-32); CHLORIDE 102 MMOL/L (98-107); CREATININE 3.4 MG/DL (0.55-1.30); GLOMERULAR FILTRATION RATE 18.6 mL/min (>60); MAGNESIUM 1.8 MG/DL (1.8-2.4); PHOSPHORUS 2.1 MG/DL (2.5-4.9); POTASSIUM 3.2 MMOL/L (3.5-5.1); SODIUM 137 MMOL/L (136-145)
[2017-08-26 08:00] VITALS: BP 141/76
[2017-08-26 08:40] LABS: ANISOCYTOSIS 1+; BAND NEUTROPHILS % (MANUAL) 0 % (0-8); BASOPHILS % (MANUAL) 0 % (0-2); EOSINOPHILS % (MANUAL) 4 % (0-3); HYPOCHROMASIA 1+; LYMPHOCYTES % (MANUAL) 4 % (20-45); NEUTROPHILS % (MANUAL) 85 % (45-75); PLATELET ESTIMATE DECREASED; PLATELET MORPHOLOGY NORMAL; TOTAL CELLS COUNTED 100
--- NOTE | 2017-08-26 09:34 | General Progress Note ---
Assessment/Plan Problem List: (1) Lymphoma ICD Codes: C85.90 - Non-Hodgkin lymphoma, unspecified, unspecified site SNOMED: 880508576 (2) Anemia ICD Codes: D64.9 - Anemia, unspecified SNOMED: 302524203 (3) Hypothyroid ICD Codes: E03.9 - Hypothyroidism, unspecified SNOMED: 03783481 (4) Malnutrition ICD Codes: E46 - Unspecified protein-calorie malnutrition SNOMED: 40601613 (5) Altered level of consciousness ICD Codes: R40.4 - Transient alteration of awareness SNOMED: 3828722 (6) Renal failure ICD Codes: N19 - Unspecified kidney failure SNOMED: 90469579 (7) Cellulitis ICD Codes: L03.90 - Cellulitis, unspecified SNOMED: 192189864 Status: unchanged Assessment/Plan ng ot pt diet cbc bmp am, endo eval, ltach eval Subjective Constitutional: Reports: weakness Allergies: Coded Allergies: No Known Allergies (Unverified , 08/17/17) All Systems: reviewed and negative except above Subjective lethargic ng in place sleepy Objective Last 24 Hour Vital Signs Date Time Temp Pulse Resp B/P (MAP) Pulse Ox O2 Delivery O2 Flow Rate FiO2 08/26/17 08:00 97.9 81 20 141/76 95 08/26/17 04:00 98.2 89 21 112/71 94 08/26/17 00:00 98.2 79 21 107/68 94 08/25/17 20:00 98.4 76 20 101/62 93 08/25/17 18:18 98.0 08/25/17 16:04 Room Air 3.0 100 08/25/17 16:02 Room Air 3.0 100 08/25/17 16:00 98.0 91 20 130/74 97 08/25/17 12:25 Room Air 3.0 100 08/25/17 12:00 98.8 73 20 126/75 97 Room Air Intake and Output 08/26/17 08/27/17 19:00 07:00 Output Total 70 ml Balance -70 ml Drainage Total 70 ml Laboratory Tests 08/26/17 06:10: White Blood Count 7.8, Red Blood Count 2.26L, Hemoglobin 7.8L, Hematocrit 22.4L , Mean Corpuscular Volume 99, Mean Corpuscular Hemoglobin 34.5H, Mean Corpuscular Hemoglobin Concent 34.8, Red Cell Distribution Width 19.2H, Platelet Count 46L, Mean Platelet Volume 8.4, Neutrophils (%) (Auto) , Lymphocytes (%) (Auto) , Monocytes (%) (Auto) , Eosinophils (%) (Auto) , Basophils (%) (Auto) , Differential Total Cells Counted 100, Neutrophils % ( Manual) 85H, Lymphocytes % (Manual) 4L, Monocytes % (Manual) 7, Eosinophils % ( Manual) 4H, Basophils % (Manual) 0, Band Neutrophils 0, Platelet Estimate DecreasedL, Platelet Morphology Normal, Hypochromasia 1+, Anisocytosis 1+, Sodium Level 137, Potassium Level 3.2L, Chloride Level 102, Carbon Dioxide Level 30, Anion Gap 5, Blood Urea Nitrogen 22H, Creatinine 3.4H, Estimat Glomerular Filtration Rate 18.6, Glucose Level 117H, Calcium Level 7.3L, Phosphorus Level 2.1L, Magnesium Level 1.8, Total Bilirubin 0.3, Direct Bilirubin 0.1, Aspartate Amino Transf (AST/SGOT) 59H, Alanine Aminotransferase ( ALT/SGPT) 40, Alkaline Phosphatase 136H, Total Protein 5.0L, Albumin 1.2L, Globulin 3.8, Albumin/Globulin Ratio 0.3L Height (Feet): 5 Height (Inches): 7.00 Weight (Pounds): 120 General Appearance: lethargic, confused EENT: normal ENT inspection Neck: normal alignment Cardiovascular: normal peripheral pulses, normal rate, regular rhythm Respiratory/Chest: chest wall non-tender, lungs clear, normal breath sounds Abdomen: normal bowel sounds, non tender, soft Extremities: normal inspection Edema: no edema noted Arm (L), no edema noted Arm (R), no edema noted Leg (L), no edema noted Leg (R), no edema noted Pedal (L), no edema noted Pedal (R), no edema noted Generalized Neurologic: motor weakness Skin: normal pigmentation, warm/dry ROBERT BANERJEE Aug 26, 2017 09:34
[2017-08-26] MEDS: levETIRAcetam 1,000mg/NS100ml 100 ML IVPB SCH ×2 (09:45→20:41)
[2017-08-26] MEDS: Pantoprazole Inj IVP SCH ×2 (09:48→20:41)
[2017-08-26] MEDS: Sucralfate 1gm tab ORAL SCH ×4 (09:50→20:40)
[2017-08-26] MEDS: Morphine Sulfate 2mg/ml Inj IVP PRN ×2 (09:50→14:22)
--- NOTE | 2017-08-26 10:16 | Nephrology Progress Note ---
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 2D Echo- Left ventricular ejection fraction estimated to be grossly normal. Avoid nephrotoxics- Neuro eval transfusion as needed IV protonix Subjective ROS Limited/Unobtainable: No Constitutional: Reports: malaise Objective Objective Last 24 Hour Vital Signs Date Time Temp Pulse Resp B/P (MAP) Pulse Ox O2 Delivery O2 Flow Rate FiO2 08/26/17 08:00 97.9 81 20 141/76 95 08/26/17 04:00 98.2 89 21 112/71 94 08/26/17 00:00 98.2 79 21 107/68 94 08/25/17 20:00 98.4 76 20 101/62 93 08/25/17 18:18 98.0 08/25/17 16:04 Room Air 3.0 100 08/25/17 16:02 Room Air 3.0 100 08/25/17 16:00 98.0 91 20 130/74 97 08/25/17 12:25 Room Air 3.0 100 08/25/17 12:00 98.8 73 20 126/75 97 Room Air Intake and Output 08/26/17 08/27/17 19:00 07:00 Output Total 70 ml Balance -70 ml Drainage Total 70 ml Laboratory Tests 08/26/17 06:10: White Blood Count 7.8, Red Blood Count 2.26L, Hemoglobin 7.8L, Hematocrit 22.4L , Mean Corpuscular Volume 99, Mean Corpuscular Hemoglobin 34.5H, Mean Corpuscular Hemoglobin Concent 34.8, Red Cell Distribution Width 19.2H, Platelet Count 46L, Mean Platelet Volume 8.4, Neutrophils (%) (Auto) , Lymphocytes (%) (Auto) , Monocytes (%) (Auto) , Eosinophils (%) (Auto) , Basophils (%) (Auto) , Differential Total Cells Counted 100, Neutrophils % ( Manual) 85H, Lymphocytes % (Manual) 4L, Monocytes % (Manual) 7, Eosinophils % ( Manual) 4H, Basophils % (Manual) 0, Band Neutrophils 0, Platelet Estimate DecreasedL, Platelet Morphology Normal, Hypochromasia 1+, Anisocytosis 1+, Sodium Level 137, Potassium Level 3.2L, Chloride Level 102, Carbon Dioxide Level 30, Anion Gap 5, Blood Urea Nitrogen 22H, Creatinine 3.4H, Estimat Glomerular Filtration Rate 18.6, Glucose Level 117H, Calcium Level 7.3L, Phosphorus Level 2.1L, Magnesium Level 1.8, Total Bilirubin 0.3, Direct Bilirubin 0.1, Aspartate Amino Transf (AST/SGOT) 59H, Alanine Aminotransferase ( ALT/SGPT) 40, Alkaline Phosphatase 136H, Total Protein 5.0L, Albumin 1.2L, Globulin 3.8, Albumin/Globulin Ratio 0.3L Height (Feet): 5 Height (Inches): 7.00 Weight (Pounds): 120 General Appearance: no apparent distress Objective PE not changed RYAN MCCLOUD Aug 26, 2017 10:16
[2017-08-26] MEDS ORDERED: Potassium Phosphate 20 MM in NS 275 ML IV ONE (10:30)
--- NOTE | 2017-08-26 10:58 | GI Progress Note ---
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 Kitchen. Assessment/Plan SUMMARY FINDINGS: 1. Severe friable oozing blood from distal esophagus, most probably from chemo. 2. Gastritis, status post biopsy. RECOMMENDATIONS: NGTF pending Video swallow eval >> >> consider PEG if indicated Follow up biopsy results and treat accordingly. >> unremarkable, negative for H. Pylori ppi BID + carafate monitor H&H, prn transfusion electrolyte correction abx fu labs Subjective Subjective limited Objective Last 24 Hour Vital Signs Date Time Temp Pulse Resp B/P (MAP) Pulse Ox O2 Delivery O2 Flow Rate FiO2 08/26/17 08:00 97.9 81 20 141/76 95 08/26/17 04:00 98.2 89 21 112/71 94 08/26/17 00:00 98.2 79 21 107/68 94 08/25/17 20:00 98.4 76 20 101/62 93 08/25/17 18:18 98.0 08/25/17 16:04 Room Air 3.0 100 08/25/17 16:02 Room Air 3.0 100 08/25/17 16:00 98.0 91 20 130/74 97 08/25/17 12:25 Room Air 3.0 100 08/25/17 12:00 98.8 73 20 126/75 97 Room Air Intake and Output 08/26/17 08/27/17 19:00 07:00 Output Total 70 ml Balance -70 ml Drainage Total 70 ml Laboratory Tests Test 08/26/17 06:10 White Blood Count 7.8 K/UL (4.8-10.8) Red Blood Count 2.26 M/UL (4.70-6.10) L Hemoglobin 7.8 G/DL (14.2-18.0) L Hematocrit 22.4 % (42.0-52.0) L Mean Corpuscular Volume 99 FL (80-99) Mean Corpuscular Hemoglobin 34.5 PG (27.0-31.0) H Mean Corpuscular Hemoglobin Concent 34.8 G/DL (32.0-36.0) Red Cell Distribution Width 19.2 % (11.6-14.8) H Platelet Count 46 K/UL (150-450) L Mean Platelet Volume 8.4 FL (6.5-10.1) Neutrophils (%) (Auto) % (45.0-75.0) Lymphocytes (%) (Auto) % (20.0-45.0) Monocytes (%) (Auto) % (1.0-10.0) Eosinophils (%) (Auto) % (0.0-3.0) Basophils (%) (Auto) % (0.0-2.0) Differential Total Cells Counted 100 Neutrophils % (Manual) 85 % (45-75) H Lymphocytes % (Manual) 4 % (20-45) L Monocytes % (Manual) 7 % (1-10) Eosinophils % (Manual) 4 % (0-3) H Basophils % (Manual) 0 % (0-2) Band Neutrophils 0 % (0-8) Platelet Estimate Decreased L Platelet Morphology Normal Hypochromasia 1+ Anisocytosis 1+ Sodium Level 137 MMOL/L (136-145) Potassium Level 3.2 MMOL/L (3.5-5.1) L Chloride Level 102 MMOL/L (98-107) Carbon Dioxide Level 30 MMOL/L (21-32) Anion Gap 5 mmol/L (5-15) Blood Urea Nitrogen 22 mg/dL (7-18) H Creatinine 3.4 MG/DL (0.55-1.30) H Estimat Glomerular Filtration Rate 18.6 mL/min (>60) Glucose Level 117 MG/DL (74-106) H Calcium Level 7.3 MG/DL (8.5-10.1) L Phosphorus Level 2.1 MG/DL (2.5-4.9) L Magnesium Level 1.8 MG/DL (1.8-2.4) Total Bilirubin 0.3 MG/DL (0.2-1.0) Direct Bilirubin 0.1 MG/DL (0.0-0.3) Aspartate Amino Transf (AST/SGOT) 59 U/L (15-37) H Alanine Aminotransferase (ALT/SGPT) 40 U/L (12-78) Alkaline Phosphatase 136 U/L (46-116) H Total Protein 5.0 G/DL (6.4-8.2) L Albumin 1.2 G/DL (3.4-5.0) L Globulin 3.8 g/dL Albumin/Globulin Ratio 0.3 (1.0-2.7) L Height (Feet): 5 Height (Inches): 7.00 Weight (Pounds): 120 General Appearance: alert Cardiovascular: normal rate Respiratory/Chest: no respiratory distress Abdominal Exam: other - NGT Lou Jarquin N.P. Aug 26, 2017 10:58
[2017-08-26 12:00] VITALS: BP 126/70
--- NOTE | 2017-08-26 12:14 | Cardiac Electrophysiology PN ---
Assessment/Plan Status Narrative Normal left ventricular chamber size, systolic function and wall motion to extent visualized. Left ventricular ejection fraction estimated to be grossly normal. No evidence of left ventricular hypertrophy. No evidence of pericardial effusion. All other cardiac chamber sizes are within normal limits. Focal aortic valve sclerosis with adequate cusp excursion. Thickened mitral valve leaflets with normal excursion. Mild mitral annulus and aortic root calcification. Pulmonic valve not visualized. Normal tricuspid valve structure. IVC at normal size with physiologic collapse. Assessment/Plan 1. Abnormal electrocardiogram with primary T-wave abnormality.1st and 3rd trop were negative and second one 0.7. Due to renal failure and sepsis.Echocardiogram Nl EF. No chest pain or SOB. 2. Metabolic acidosis with carbon dioxide of only 7.Due to renal failure and sepsis 3. BNP of more than 5000. Due to renal failure and volume overload. 4. Renal failure. S/P Tray catheter and HD per Dr. Blakely 5. Hypernatremia. Now on D5W 6. Altered mental status. Head CT showed no acute intracranial bleed, mass effect, or edema. Had MRI brain that showed Age-related volume loss and Negative for acute intracranial bleed, infarct, or mass effect 7. Hematemesis. S/P EGD by Dr Kitchen 8. Dysphagia. Video swallow today LINDSEY RN Subjective Subjective No chest pain or SOB.Awaiting video swallow. Objective Last 24 Hour Vital Signs Date Time Temp Pulse Resp B/P (MAP) Pulse Ox O2 Delivery O2 Flow Rate FiO2 08/26/17 08:00 97.9 81 20 141/76 95 08/26/17 04:00 98.2 89 21 112/71 94 08/26/17 00:00 98.2 79 21 107/68 94 08/25/17 20:00 98.4 76 20 101/62 93 08/25/17 18:18 98.0 08/25/17 16:04 Room Air 3.0 100 08/25/17 16:02 Room Air 3.0 100 08/25/17 16:00 98.0 91 20 130/74 97 08/25/17 12:25 Room Air 3.0 100 Intake and Output 08/26/17 08/27/17 19:00 07:00 Output Total 70 ml Balance -70 ml Drainage Total 70 ml Laboratory Tests Test 08/26/17 06:10 White Blood Count 7.8 K/UL (4.8-10.8) Red Blood Count 2.26 M/UL (4.70-6.10) L Hemoglobin 7.8 G/DL (14.2-18.0) L Hematocrit 22.4 % (42.0-52.0) L Mean Corpuscular Volume 99 FL (80-99) Mean Corpuscular Hemoglobin 34.5 PG (27.0-31.0) H Mean Corpuscular Hemoglobin Concent 34.8 G/DL (32.0-36.0) Red Cell Distribution Width 19.2 % (11.6-14.8) H Platelet Count 46 K/UL (150-450) L Mean Platelet Volume 8.4 FL (6.5-10.1) Neutrophils (%) (Auto) % (45.0-75.0) Lymphocytes (%) (Auto) % (20.0-45.0) Monocytes (%) (Auto) % (1.0-10.0) Eosinophils (%) (Auto) % (0.0-3.0) Basophils (%) (Auto) % (0.0-2.0) Differential Total Cells Counted 100 Neutrophils % (Manual) 85 % (45-75) H Lymphocytes % (Manual) 4 % (20-45) L Monocytes % (Manual) 7 % (1-10) Eosinophils % (Manual) 4 % (0-3) H Basophils % (Manual) 0 % (0-2) Band Neutrophils 0 % (0-8) Platelet Estimate Decreased L Platelet Morphology Normal Hypochromasia 1+ Anisocytosis 1+ Sodium Level 137 MMOL/L (136-145) Potassium Level 3.2 MMOL/L (3.5-5.1) L Chloride Level 102 MMOL/L (98-107) Carbon Dioxide Level 30 MMOL/L (21-32) Anion Gap 5 mmol/L (5-15) Blood Urea Nitrogen 22 mg/dL (7-18) H Creatinine 3.4 MG/DL (0.55-1.30) H Estimat Glomerular Filtration Rate 18.6 mL/min (>60) Glucose Level 117 MG/DL (74-106) H Calcium Level 7.3 MG/DL (8.5-10.1) L Phosphorus Level 2.1 MG/DL (2.5-4.9) L Magnesium Level 1.8 MG/DL (1.8-2.4) Total Bilirubin 0.3 MG/DL (0.2-1.0) Direct Bilirubin 0.1 MG/DL (0.0-0.3) Aspartate Amino Transf (AST/SGOT) 59 U/L (15-37) H Alanine Aminotransferase (ALT/SGPT) 40 U/L (12-78) Alkaline Phosphatase 136 U/L (46-116) H Total Protein 5.0 G/DL (6.4-8.2) L Albumin 1.2 G/DL (3.4-5.0) L Globulin 3.8 g/dL Albumin/Globulin Ratio 0.3 (1.0-2.7) L Objective HEAD AND NECK: No JVD.NG tube in. Right face scar LUNGS: Clear. CARDIOVASCULAR: Regular. S1 and S2 with no gallop, his chest has a right- sided port. ABDOMEN: Soft. EXTREMITIES: No edema. NICOLÁS PARKINSON Aug 26, 2017 12:14
--- NOTE | 2017-08-26 12:28 | General Surgery Progress Note ---
General Surgery-Progress Note Subjective Procedure Performed Wound VAC change for large right hip wound Additional Comments no acute events. VAC functional Objective Last 24 Hour Vital Signs Date Time Temp Pulse Resp B/P (MAP) Pulse Ox O2 Delivery O2 Flow Rate FiO2 08/26/17 08:00 97.9 81 20 141/76 95 08/26/17 04:00 98.2 89 21 112/71 94 08/26/17 00:00 98.2 79 21 107/68 94 08/25/17 20:00 98.4 76 20 101/62 93 08/25/17 18:18 98.0 08/25/17 16:04 Room Air 3.0 100 08/25/17 16:02 Room Air 3.0 100 08/25/17 16:00 98.0 91 20 130/74 97 I&O Intake and Output 08/26/17 08/27/17 19:00 07:00 Output Total 70 ml Balance -70 ml Drainage Total 70 ml Drains: wound vac Laboratory Tests Test 08/26/17 06:10 White Blood Count 7.8 K/UL (4.8-10.8) Red Blood Count 2.26 M/UL (4.70-6.10) L Hemoglobin 7.8 G/DL (14.2-18.0) L Hematocrit 22.4 % (42.0-52.0) L Mean Corpuscular Volume 99 FL (80-99) Mean Corpuscular Hemoglobin 34.5 PG (27.0-31.0) H Mean Corpuscular Hemoglobin Concent 34.8 G/DL (32.0-36.0) Red Cell Distribution Width 19.2 % (11.6-14.8) H Platelet Count 46 K/UL (150-450) L Mean Platelet Volume 8.4 FL (6.5-10.1) Neutrophils (%) (Auto) % (45.0-75.0) Lymphocytes (%) (Auto) % (20.0-45.0) Monocytes (%) (Auto) % (1.0-10.0) Eosinophils (%) (Auto) % (0.0-3.0) Basophils (%) (Auto) % (0.0-2.0) Differential Total Cells Counted 100 Neutrophils % (Manual) 85 % (45-75) H Lymphocytes % (Manual) 4 % (20-45) L Monocytes % (Manual) 7 % (1-10) Eosinophils % (Manual) 4 % (0-3) H Basophils % (Manual) 0 % (0-2) Band Neutrophils 0 % (0-8) Platelet Estimate Decreased L Platelet Morphology Normal Hypochromasia 1+ Anisocytosis 1+ Sodium Level 137 MMOL/L (136-145) Potassium Level 3.2 MMOL/L (3.5-5.1) L Chloride Level 102 MMOL/L (98-107) Carbon Dioxide Level 30 MMOL/L (21-32) Anion Gap 5 mmol/L (5-15) Blood Urea Nitrogen 22 mg/dL (7-18) H Creatinine 3.4 MG/DL (0.55-1.30) H Estimat Glomerular Filtration Rate 18.6 mL/min (>60) Glucose Level 117 MG/DL (74-106) H Calcium Level 7.3 MG/DL (8.5-10.1) L Phosphorus Level 2.1 MG/DL (2.5-4.9) L Magnesium Level 1.8 MG/DL (1.8-2.4) Total Bilirubin 0.3 MG/DL (0.2-1.0) Direct Bilirubin 0.1 MG/DL (0.0-0.3) Aspartate Amino Transf (AST/SGOT) 59 U/L (15-37) H Alanine Aminotransferase (ALT/SGPT) 40 U/L (12-78) Alkaline Phosphatase 136 U/L (46-116) H Total Protein 5.0 G/DL (6.4-8.2) L Albumin 1.2 G/DL (3.4-5.0) L Globulin 3.8 g/dL Albumin/Globulin Ratio 0.3 (1.0-2.7) L Plan Problems: (1) Wound, open, hip or thigh Assessment & Plan: 62M here for medical evaluation and management. has large right lateral hip wound after episode of soft tissue infection requiring large debridement. wound has been managed at outside facility and will be managed by surgery while in hospital. VAC removed wound evaluated. good granulation tissue over large area of debridement. no tissues currently needing debridement. no drainage. no signs of active infection -keep wound clean. continue with VAC q3days at 100mmHg. -next planned change Today by wound care team. will evaluate wound when they arrive. -will monitor wound with VAC changes. -will do debridement as necessary. thank you for this consultation and allowing me to participate in patients care. will follow with Mauricio Abel Aug 26, 2017 12:28
--- NOTE | 2017-08-26 13:35 | Infectious Diseases Prog Note ---
Assessment/Plan Assessment/Plan A: Recent necrotizing fascitis of R hip ? Mastoiditis Fungal UTI treated Acute renal failure CKD History of facial lymphoma Anemia VRE colonization Encephalopathy Hepatitis C Cellular immune deficiency, low CD4 GI bleeding, source esophagus Sinusitis P: discontinue Fluconazole may need prophylaxis for PCP Subjective ROS Limited/Unobtainable: Yes Musculoskeletal: Reports: pain, other - in right hip Allergies: Coded Allergies: No Known Allergies (Unverified , 08/17/17) Objective Vital Signs Last 24 Hour Vital Signs Date Time Temp Pulse Resp B/P (MAP) Pulse Ox O2 Delivery O2 Flow Rate FiO2 08/26/17 08:00 97.9 81 20 141/76 95 08/26/17 04:00 98.2 89 21 112/71 94 08/26/17 00:00 98.2 79 21 107/68 94 08/25/17 20:00 98.4 76 20 101/62 93 08/25/17 18:18 98.0 08/25/17 16:04 Room Air 3.0 100 08/25/17 16:02 Room Air 3.0 100 08/25/17 16:00 98.0 91 20 130/74 97 Height (Feet): 5 Height (Inches): 7.00 Weight (Pounds): 120 HEENT: other - right facial deformity Respiratory/Chest: lungs clear Cardiovascular: normal rate, other - Portacath Abdomen: soft, non tender, other - NG tube Extremities: no edema Skin: ulcers, other - right hip wound-vac Laboratory Tests Test 08/26/17 06:10 White Blood Count 7.8 K/UL (4.8-10.8) Red Blood Count 2.26 M/UL (4.70-6.10) L Hemoglobin 7.8 G/DL (14.2-18.0) L Hematocrit 22.4 % (42.0-52.0) L Mean Corpuscular Volume 99 FL (80-99) Mean Corpuscular Hemoglobin 34.5 PG (27.0-31.0) H Mean Corpuscular Hemoglobin Concent 34.8 G/DL (32.0-36.0) Red Cell Distribution Width 19.2 % (11.6-14.8) H Platelet Count 46 K/UL (150-450) L Mean Platelet Volume 8.4 FL (6.5-10.1) Neutrophils (%) (Auto) % (45.0-75.0) Lymphocytes (%) (Auto) % (20.0-45.0) Monocytes (%) (Auto) % (1.0-10.0) Eosinophils (%) (Auto) % (0.0-3.0) Basophils (%) (Auto) % (0.0-2.0) Differential Total Cells Counted 100 Neutrophils % (Manual) 85 % (45-75) H Lymphocytes % (Manual) 4 % (20-45) L Monocytes % (Manual) 7 % (1-10) Eosinophils % (Manual) 4 % (0-3) H Basophils % (Manual) 0 % (0-2) Band Neutrophils 0 % (0-8) Platelet Estimate Decreased L Platelet Morphology Normal Hypochromasia 1+ Anisocytosis 1+ Sodium Level 137 MMOL/L (136-145) Potassium Level 3.2 MMOL/L (3.5-5.1) L Chloride Level 102 MMOL/L (98-107) Carbon Dioxide Level 30 MMOL/L (21-32) Anion Gap 5 mmol/L (5-15) Blood Urea Nitrogen 22 mg/dL (7-18) H Creatinine 3.4 MG/DL (0.55-1.30) H Estimat Glomerular Filtration Rate 18.6 mL/min (>60) Glucose Level 117 MG/DL (74-106) H Calcium Level 7.3 MG/DL (8.5-10.1) L Phosphorus Level 2.1 MG/DL (2.5-4.9) L Magnesium Level 1.8 MG/DL (1.8-2.4) Total Bilirubin 0.3 MG/DL (0.2-1.0) Direct Bilirubin 0.1 MG/DL (0.0-0.3) Aspartate Amino Transf (AST/SGOT) 59 U/L (15-37) H Alanine Aminotransferase (ALT/SGPT) 40 U/L (12-78) Alkaline Phosphatase 136 U/L (46-116) H Total Protein 5.0 G/DL (6.4-8.2) L Albumin 1.2 G/DL (3.4-5.0) L Globulin 3.8 g/dL Albumin/Globulin Ratio 0.3 (1.0-2.7) L Current Medications Medications (Trade) Dose Ordered Sig/Srini Route PRN Reason Start Time Stop Time Status Last Admin Dose Admin Acetaminophen (Tylenol) 650 mg Q4H PRN ORAL fever 08/23/17 18:10 09/16/17 18:09 Chlorhexidine Gluconate (Sandra-Hex 2%) 1 applic DAILY@2000 TOPIC 08/23/17 20:00 09/17/17 19:59 08/25/17 20:52 Clonidine HCl (Catapres) 0.1 mg Q4H PRN GT SBP > 160 08/23/17 18:00 09/16/17 21:59 Dextrose 1,000 ml @ 50 mls/hr Q20H IV 08/23/17 18:10 09/19/17 18:09 08/26/17 00:04 Dextrose (Dextrose 50%) STAT PRN IV Hypoglycemia 08/23/17 18:10 09/16/17 18:09 Fluconazole (Diflucan) 100 mg DAILY@1800 NG 08/25/17 18:00 09/01/17 17:59 08/25/17 17:48 Levetiracetam 100 ml @ 400 mls/hr Q12HR IVPB 08/23/17 21:00 09/18/17 13:29 08/26/17 09:45 Levothyroxine Sodium (Synthroid) 75 mcg ACBREAKFAST GT 08/24/17 06:30 09/21/17 06:29 08/26/17 06:06 Morphine Sulfate (Morphine Sulfate) 2 mg Q4H PRN IVP For Pain 08/25/17 12:45 09/01/17 12:44 08/26/17 09:50 Ondansetron HCl (Zofran) 4 mg Q6H PRN IVP Nausea & Vomiting 08/23/17 18:10 09/16/17 18:09 08/25/17 18:10 Pantoprazole (Protonix) 40 mg EVERY 12 HOURS IVP 08/23/17 21:00 09/20/17 20:59 08/26/17 09:48 Polyethylene Glycol (Miralax) 17 gm HSPRN PRN GT Constipation 08/23/17 18:10 09/21/17 18:09 Potassium Phosphate 20 mm/ Sodium Chloride 281.6667 ml @ 46.944 m... ONCE ONCE IV 08/26/17 10:30 08/26/17 16:29 08/26/17 12:41 Sucralfate (Carafate) 1 gm FOUR TIMES A DAY ORAL 08/23/17 18:00 09/20/17 12:59 08/26/17 12:41 Zolpidem Tartrate (Ambien) 5 mg HSPRN PRN GT Insomnia 08/23/17 18:10 08/29/17 18:09 TOYA ENGLISH Aug 26, 2017 13:35
--- NOTE | 2017-08-26 14:12 | Wound Nurse Progress Note ---
Wound RN Progress Note Wound Consult wound vac changed as ordered by MD wound bed remains 100% pink , no deterioration present. AV MARS Aug 26, 2017 14:12
[2017-08-26 16:00] VITALS: BP 118/63
--- NOTE | 2017-08-26 16:41 | Pulmonology Progress Note ---
Assessment/Plan Problems: (1) UGI bleed (2) Anemia (3) Malnutrition (4) Acute renal failure (ARF) Assessment/Plan no new events swallow study noted diet started PT/ot nutrition evaluation. med/surg check labs in am all labs reviewed. Subjective ROS Limited/Unobtainable: No Interval Events: renal diet started Allergies: Coded Allergies: No Known Allergies (Unverified , 08/17/17) Objective Last 24 Hour Vital Signs Date Time Temp Pulse Resp B/P (MAP) Pulse Ox O2 Delivery O2 Flow Rate FiO2 08/26/17 16:00 97.9 75 20 118/63 97 08/26/17 12:00 97.9 80 20 126/70 97 08/26/17 08:00 97.9 81 20 141/76 95 08/26/17 04:00 98.2 89 21 112/71 94 08/26/17 00:00 98.2 79 21 107/68 94 08/25/17 20:00 98.4 76 20 101/62 93 08/25/17 18:18 98.0 Intake and Output 08/26/17 08/27/17 19:00 07:00 Output Total 70 ml Balance -70 ml Drainage Total 70 ml Objective General Appearance: WD/WN HEENT: normocephalic, atraumatic Respiratory/Chest: chest wall non-tender, lungs clear Breasts: no masses Cardiovascular: normal peripheral pulses Abdomen: normal bowel sounds, soft, non tender Genitourinary: normal external genitalia Skin: no rash Laboratory Tests 08/26/17 06:10: White Blood Count 7.8, Red Blood Count 2.26L, Hemoglobin 7.8L, Hematocrit 22.4L , Mean Corpuscular Volume 99, Mean Corpuscular Hemoglobin 34.5H, Mean Corpuscular Hemoglobin Concent 34.8, Red Cell Distribution Width 19.2H, Platelet Count 46L, Mean Platelet Volume 8.4, Neutrophils (%) (Auto) , Lymphocytes (%) (Auto) , Monocytes (%) (Auto) , Eosinophils (%) (Auto) , Basophils (%) (Auto) , Differential Total Cells Counted 100, Neutrophils % ( Manual) 85H, Lymphocytes % (Manual) 4L, Monocytes % (Manual) 7, Eosinophils % ( Manual) 4H, Basophils % (Manual) 0, Band Neutrophils 0, Platelet Estimate DecreasedL, Platelet Morphology Normal, Hypochromasia 1+, Anisocytosis 1+, Sodium Level 137, Potassium Level 3.2L, Chloride Level 102, Carbon Dioxide Level 30, Anion Gap 5, Blood Urea Nitrogen 22H, Creatinine 3.4H, Estimat Glomerular Filtration Rate 18.6, Glucose Level 117H, Calcium Level 7.3L, Phosphorus Level 2.1L, Magnesium Level 1.8, Total Bilirubin 0.3, Direct Bilirubin 0.1, Aspartate Amino Transf (AST/SGOT) 59H, Alanine Aminotransferase ( ALT/SGPT) 40, Alkaline Phosphatase 136H, Total Protein 5.0L, Albumin 1.2L, Globulin 3.8, Albumin/Globulin Ratio 0.3L Current Medications Medications (Trade) Dose Ordered Sig/Srini Route PRN Reason Start Time Stop Time Status Last Admin Dose Admin Acetaminophen (Tylenol) 650 mg Q4H PRN ORAL fever 08/23/17 18:10 09/16/17 18:09 Chlorhexidine Gluconate (Sandra-Hex 2%) 1 applic DAILY@2000 TOPIC 08/23/17 20:00 09/17/17 19:59 08/25/17 20:52 Clonidine HCl (Catapres) 0.1 mg Q4H PRN GT SBP > 160 08/23/17 18:00 09/16/17 21:59 Dextrose 1,000 ml @ 50 mls/hr Q20H IV 08/23/17 18:10 09/19/17 18:09 08/26/17 00:04 Dextrose (Dextrose 50%) STAT PRN IV Hypoglycemia 08/23/17 18:10 09/16/17 18:09 Fluconazole (Diflucan) 100 mg DAILY@1800 NG 08/25/17 18:00 09/01/17 17:59 08/25/17 17:48 Levetiracetam 100 ml @ 400 mls/hr Q12HR IVPB 08/23/17 21:00 09/18/17 13:29 08/26/17 09:45 Levothyroxine Sodium (Synthroid) 75 mcg ACBREAKFAST GT 08/24/17 06:30 09/21/17 06:29 08/26/17 06:06 Morphine Sulfate (Morphine Sulfate) 2 mg Q4H PRN IVP For Pain 08/25/17 12:45 09/01/17 12:44 08/26/17 14:22 Ondansetron HCl (Zofran) 4 mg Q6H PRN IVP Nausea & Vomiting 08/23/17 18:10 09/16/17 18:09 08/25/17 18:10 Pantoprazole (Protonix) 40 mg EVERY 12 HOURS IVP 08/23/17 21:00 09/20/17 20:59 08/26/17 09:48 Polyethylene Glycol (Miralax) 17 gm HSPRN PRN GT Constipation 08/23/17 18:10 09/21/17 18:09 Sucralfate (Carafate) 1 gm FOUR TIMES A DAY ORAL 08/23/17 18:00 09/20/17 12:59 08/26/17 12:41 Zolpidem Tartrate (Ambien) 5 mg HSPRN PRN GT Insomnia 08/23/17 18:10 08/29/17 18:09 MAYRA BAKER Aug 26, 2017 16:41
[2017-08-26] MEDS ORDERED: Tubing IV Secondary IV ONE (16:53)
[2017-08-26] MEDS: Fluconazole 100mg tab NG SCH (18:29)
[2017-08-26 20:00] VITALS: BP 122/70
[2017-08-26] MEDS: Dyna-Hex 2% Top Sol 2oz TOPIC SCH (20:40)
--- NOTE | 2017-08-26 20:40 | General Progress Note ---
Assessment/Plan Assessment/Plan ASSESSMENT AND RECOMMENDATIONS: 1. Upper GI bleed, s/p egd. GI service following. NGTF. Pending swallow eval. Monitor H/H and platelet count. 2. Facial lymphoma, status post chemotherapy with radiation. Currently cancer is in remission. Repeat CT of the head no evidence of malignancy. 3. Anemia secondary to chronic disease. Anemia workup has been reviewed. --> transfuse if hgb below 7 --> s/p transfusion 4. Anemia secondary to kidney disease. --> PATTI has improved, likely due to ATN 5. Altered mental status. Neurology service is evaluating the patient. 6. Necrotizing fasciitis, status post wound VAC and surgery, completed 2 weeks ago. --> continue wound care 7. Thrombocytopenia post surgical--> monitor closely. Plt goal is above 20K. Should improve. Subjective Allergies: Coded Allergies: No Known Allergies (Unverified , 08/17/17) All Systems: reviewed and negative except above Subjective unchanged, no events overnight, ngtf Objective Last 24 Hour Vital Signs Date Time Temp Pulse Resp B/P (MAP) Pulse Ox O2 Delivery O2 Flow Rate FiO2 08/26/17 16:00 97.9 75 20 118/63 97 08/26/17 12:00 97.9 80 20 126/70 97 08/26/17 08:00 97.9 81 20 141/76 95 08/26/17 04:00 98.2 89 21 112/71 94 08/26/17 00:00 98.2 79 21 107/68 94 Intake and Output 08/26/17 08/27/17 19:00 07:00 Output Total 720 ml Balance -720 ml Output Urine Total 500 ml Drainage Total 220 ml # Bowel Movements 2 Laboratory Tests 08/26/17 06:10: White Blood Count 7.8, Red Blood Count 2.26L, Hemoglobin 7.8L, Hematocrit 22.4L , Mean Corpuscular Volume 99, Mean Corpuscular Hemoglobin 34.5H, Mean Corpuscular Hemoglobin Concent 34.8, Red Cell Distribution Width 19.2H, Platelet Count 46L, Mean Platelet Volume 8.4, Neutrophils (%) (Auto) , Lymphocytes (%) (Auto) , Monocytes (%) (Auto) , Eosinophils (%) (Auto) , Basophils (%) (Auto) , Differential Total Cells Counted 100, Neutrophils % ( Manual) 85H, Lymphocytes % (Manual) 4L, Monocytes % (Manual) 7, Eosinophils % ( Manual) 4H, Basophils % (Manual) 0, Band Neutrophils 0, Platelet Estimate DecreasedL, Platelet Morphology Normal, Hypochromasia 1+, Anisocytosis 1+, Sodium Level 137, Potassium Level 3.2L, Chloride Level 102, Carbon Dioxide Level 30, Anion Gap 5, Blood Urea Nitrogen 22H, Creatinine 3.4H, Estimat Glomerular Filtration Rate 18.6, Glucose Level 117H, Calcium Level 7.3L, Phosphorus Level 2.1L, Magnesium Level 1.8, Total Bilirubin 0.3, Direct Bilirubin 0.1, Aspartate Amino Transf (AST/SGOT) 59H, Alanine Aminotransferase ( ALT/SGPT) 40, Alkaline Phosphatase 136H, Total Protein 5.0L, Albumin 1.2L, Globulin 3.8, Albumin/Globulin Ratio 0.3L Height (Feet): 5 Height (Inches): 7.00 Weight (Pounds): 120 General Appearance: no apparent distress EENT: normal ENT inspection Neck: normal alignment Cardiovascular: normal peripheral pulses Extremities: non-tender Skin: warm/dry Nader Brumfield Aug 26, 2017 20:40
[2017-08-27] VITALS: BP 120/66
[2017-08-27] MEDS: Morphine Sulfate 2mg/ml Inj IVP PRN ×3 (00:16→17:38)
[2017-08-27 04:00] VITALS: BP 128/73
[2017-08-27 07:01] LABS: MEAN CORPUSCULAR HEMOGLOBIN 34.3 PG (27.0-31.0); MEAN CORPUSCULAR HGB CONC 34.3 G/DL (32.0-36.0); MEAN CORPUSCULAR VOLUME 100 FL (80-99); MEAN PLATELET VOLUME 6.6 FL (6.5-10.1); PLATELET COUNT 70 K/UL (150-450); RED BLOOD COUNT 2.09 M/UL (4.70-6.10); RED CELL DISTRIBUTION WIDTH 18.5 % (11.6-14.8); WHITE BLOOD COUNT 6.1 K/UL (4.8-10.8)
[2017-08-27 07:31] LABS: ALANINE AMINOTRANSFERASE 35 U/L (12-78); ALBUMIN/GLOBULIN RATIO 0.3 (1.0-2.7); ANION GAP 5 mmol/L (5-15); ASPARTATE AMINO TRANSFERASE 53 U/L (15-37); CARBON DIOXIDE 29 MMOL/L (21-32); CHLORIDE 100 MMOL/L (98-107); CREATININE 3.8 MG/DL (0.55-1.30); CRP QUANT 7.7 mg/dL (0.00-0.90); GLOMERULAR FILTRATION RATE 16.3 mL/min (>60); MAGNESIUM 1.5 MG/DL (1.8-2.4); PHOSPHORUS 3.4 MG/DL (2.5-4.9); POTASSIUM 3.5 MMOL/L (3.5-5.1); SODIUM 134 MMOL/L (136-145); TOTAL PROTEIN 4.7 G/DL (6.4-8.2); URIC ACID 2.5 MG/DL (2.6-7.2)
[2017-08-27 08:19] LABS: ANISOCYTOSIS 2+; BAND NEUTROPHILS % (MANUAL) 2 % (0-8); BASOPHILS % (MANUAL) 0 % (0-2); EOSINOPHILS % (MANUAL) 1 % (0-3); HYPOCHROMASIA 3+; LYMPHOCYTES % (MANUAL) 10 % (20-45); NEUTROPHILS % (MANUAL) 84 % (45-75); PLATELET ESTIMATE DECREASED; PLATELET MORPHOLOGY NORMAL; SPHEROCYTES 2+; TOTAL CELLS COUNTED 100
[2017-08-27 08:20] VITALS: BP 117/77
[2017-08-27] MEDS: Sucralfate 1gm tab ORAL SCH ×4 (10:03→20:37)
[2017-08-27] MEDS: Pantoprazole Inj IVP SCH ×2 (10:05→20:37)
[2017-08-27] MEDS: levETIRAcetam 1,000mg/NS100ml 100 ML IVPB SCH ×2 (10:05→20:37)
[2017-08-27 11:37] VITALS: BP 121/70
--- NOTE | 2017-08-27 12:18 | Nephrology Progress Note ---
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 K and Phos supplement Consider transfusion kidney DANI : Bilateral echogenic slightly small kidneys, consistent with medical renal disease Negative for hydronephrosis. 2D Echo- Left ventricular ejection fraction estimated to be grossly normal. Avoid nephrotoxics- Neuro eval transfusion as needed IV protonix Subjective ROS Limited/Unobtainable: No Constitutional: Reports: malaise, weakness Objective Objective Last 24 Hour Vital Signs Date Time Temp Pulse Resp B/P (MAP) Pulse Ox O2 Delivery O2 Flow Rate FiO2 08/27/17 11:37 97.8 77 21 121/70 96 Room Air 08/27/17 08:20 97.7 73 20 117/77 97 Room Air 08/27/17 04:00 98.4 69 20 128/73 96 08/27/17 00:00 98.4 79 19 120/66 94 08/26/17 20:00 98.6 64 20 122/70 97 08/26/17 16:00 97.9 75 20 118/63 97 Intake and Output 08/27/17 08/28/17 19:00 07:00 Intake Total 200 ml Output Total 380 ml Balance -180 ml IV Total 200 ml Drainage Total 380 ml Laboratory Tests 08/27/17 06:10: White Blood Count 6.1, Red Blood Count 2.09L, Hemoglobin 7.2L, Hematocrit 20.9L , Mean Corpuscular Volume 100H, Mean Corpuscular Hemoglobin 34.3H, Mean Corpuscular Hemoglobin Concent 34.3, Red Cell Distribution Width 18.5H, Platelet Count 70#L, Mean Platelet Volume 6.6, Neutrophils (%) (Auto) , Lymphocytes (%) (Auto) , Monocytes (%) (Auto) , Eosinophils (%) (Auto) , Basophils (%) (Auto) , Differential Total Cells Counted 100, Neutrophils % ( Manual) 84H, Lymphocytes % (Manual) 10L, Monocytes % (Manual) 3, Eosinophils % ( Manual) 1, Basophils % (Manual) 0, Band Neutrophils 2, Platelet Estimate DecreasedL, Platelet Morphology Normal, Hypochromasia 3+, Anisocytosis 2+, Spherocytes 2+, Sodium Level 134L, Potassium Level 3.5, Chloride Level 100, Carbon Dioxide Level 29, Anion Gap 5, Blood Urea Nitrogen 27H, Creatinine 3.8H, Estimat Glomerular Filtration Rate 16.3, Glucose Level 118H, Uric Acid 2.5L, Calcium Level 7.0L, Phosphorus Level 3.4, Magnesium Level 1.5L, Total Bilirubin 0.2, Aspartate Amino Transf (AST/SGOT) 53H, Alanine Aminotransferase (ALT/SGPT) 35, Alkaline Phosphatase 118H, C-Reactive Protein, Quantitative 7.7H, Pro-B- Type Natriuretic Peptide 2270H, Total Protein 4.7L, Albumin 1.1L, Globulin 3.6, Albumin/Globulin Ratio 0.3L Height (Feet): 5 Height (Inches): 7.00 Weight (Pounds): 120 General Appearance: no apparent distress, lethargic Respiratory/Chest: decreased breath sounds Abdomen: soft Neurologic: responsive Objective PE not changed RYAN MCCLOUD Aug 27, 2017 12:17
--- NOTE | 2017-08-27 13:32 | General Progress Note ---
Assessment/Plan Assessment/Plan ASSESSMENT AND RECOMMENDATIONS: 1. Upper GI bleed, s/p egd. GI service following. NGTF. Pending swallow eval. Monitor H/H and platelet count. 2. Facial lymphoma, status post chemotherapy with radiation. Currently cancer is in remission. Repeat CT of the head no evidence of malignancy. 3. Anemia secondary to chronic disease. Anemia workup has been reviewed. --> transfuse if hgb below 7 --> to receive one unit prbc 4. Anemia secondary to kidney disease. --> PATTI has improved, likely due to ATN 5. Altered mental status. Neurology service is evaluating the patient. 6. Necrotizing fasciitis, status post wound VAC and surgery, completed 2 weeks ago. --> continue wound care 7. Thrombocytopenia post surgical--> monitor closely. Plt goal is above 20K. Should improve. Subjective Allergies: Coded Allergies: No Known Allergies (Unverified , 08/17/17) All Systems: reviewed and negative except above Subjective H/H dropped Objective Last 24 Hour Vital Signs Date Time Temp Pulse Resp B/P (MAP) Pulse Ox O2 Delivery O2 Flow Rate FiO2 08/27/17 11:37 97.8 77 21 121/70 96 Room Air 08/27/17 08:20 97.7 73 20 117/77 97 Room Air 08/27/17 04:00 98.4 69 20 128/73 96 08/27/17 00:00 98.4 79 19 120/66 94 08/26/17 20:00 98.6 64 20 122/70 97 08/26/17 16:00 97.9 75 20 118/63 97 Intake and Output 08/27/17 08/28/17 19:00 07:00 Intake Total 200 ml Output Total 380 ml Balance -180 ml IV Total 200 ml Drainage Total 380 ml Laboratory Tests 08/27/17 06:10: White Blood Count 6.1, Red Blood Count 2.09L, Hemoglobin 7.2L, Hematocrit 20.9L , Mean Corpuscular Volume 100H, Mean Corpuscular Hemoglobin 34.3H, Mean Corpuscular Hemoglobin Concent 34.3, Red Cell Distribution Width 18.5H, Platelet Count 70#L, Mean Platelet Volume 6.6, Neutrophils (%) (Auto) , Lymphocytes (%) (Auto) , Monocytes (%) (Auto) , Eosinophils (%) (Auto) , Basophils (%) (Auto) , Differential Total Cells Counted 100, Neutrophils % ( Manual) 84H, Lymphocytes % (Manual) 10L, Monocytes % (Manual) 3, Eosinophils % ( Manual) 1, Basophils % (Manual) 0, Band Neutrophils 2, Platelet Estimate DecreasedL, Platelet Morphology Normal, Hypochromasia 3+, Anisocytosis 2+, Spherocytes 2+, Sodium Level 134L, Potassium Level 3.5, Chloride Level 100, Carbon Dioxide Level 29, Anion Gap 5, Blood Urea Nitrogen 27H, Creatinine 3.8H, Estimat Glomerular Filtration Rate 16.3, Glucose Level 118H, Uric Acid 2.5L, Calcium Level 7.0L, Phosphorus Level 3.4, Magnesium Level 1.5L, Total Bilirubin 0.2, Aspartate Amino Transf (AST/SGOT) 53H, Alanine Aminotransferase (ALT/SGPT) 35, Alkaline Phosphatase 118H, C-Reactive Protein, Quantitative 7.7H, Pro-B- Type Natriuretic Peptide 2270H, Total Protein 4.7L, Albumin 1.1L, Globulin 3.6, Albumin/Globulin Ratio 0.3L Height (Feet): 5 Height (Inches): 7.00 Weight (Pounds): 120 General Appearance: no apparent distress EENT: normal ENT inspection Neck: normal alignment Cardiovascular: normal peripheral pulses Extremities: non-tender Skin: normal pigmentation Nader Brumfield Aug 27, 2017 13:32
--- NOTE | 2017-08-27 14:13 | General Progress Note ---
Assessment/Plan Problem List: (1) Lymphoma ICD Codes: C85.90 - Non-Hodgkin lymphoma, unspecified, unspecified site SNOMED: 828226809 (2) Anemia ICD Codes: D64.9 - Anemia, unspecified SNOMED: 344670204 (3) Hypothyroid ICD Codes: E03.9 - Hypothyroidism, unspecified SNOMED: 53939490 (4) Malnutrition ICD Codes: E46 - Unspecified protein-calorie malnutrition SNOMED: 60893387 (5) Altered level of consciousness ICD Codes: R40.4 - Transient alteration of awareness SNOMED: 4299796 (6) Renal failure ICD Codes: N19 - Unspecified kidney failure SNOMED: 45201852 (7) Cellulitis ICD Codes: L03.90 - Cellulitis, unspecified SNOMED: 312879238 Status: unchanged Assessment/Plan ng ot pt diet cbc bmp am, endo eval, ltach eval Subjective Constitutional: Reports: weakness Allergies: Coded Allergies: No Known Allergies (Unverified , 08/17/17) All Systems: reviewed and negative except above Subjective lethargic ng in place sleepy Objective Last 24 Hour Vital Signs Date Time Temp Pulse Resp B/P (MAP) Pulse Ox O2 Delivery O2 Flow Rate FiO2 08/27/17 11:37 97.8 77 21 121/70 96 Room Air 08/27/17 08:20 97.7 73 20 117/77 97 Room Air 08/27/17 04:00 98.4 69 20 128/73 96 08/27/17 00:00 98.4 79 19 120/66 94 08/26/17 20:00 98.6 64 20 122/70 97 08/26/17 16:00 97.9 75 20 118/63 97 Intake and Output 08/27/17 08/28/17 19:00 07:00 Intake Total 200 ml Output Total 380 ml Balance -180 ml IV Total 200 ml Drainage Total 380 ml Laboratory Tests 08/27/17 06:10: White Blood Count 6.1, Red Blood Count 2.09L, Hemoglobin 7.2L, Hematocrit 20.9L , Mean Corpuscular Volume 100H, Mean Corpuscular Hemoglobin 34.3H, Mean Corpuscular Hemoglobin Concent 34.3, Red Cell Distribution Width 18.5H, Platelet Count 70#L, Mean Platelet Volume 6.6, Neutrophils (%) (Auto) , Lymphocytes (%) (Auto) , Monocytes (%) (Auto) , Eosinophils (%) (Auto) , Basophils (%) (Auto) , Differential Total Cells Counted 100, Neutrophils % ( Manual) 84H, Lymphocytes % (Manual) 10L, Monocytes % (Manual) 3, Eosinophils % ( Manual) 1, Basophils % (Manual) 0, Band Neutrophils 2, Platelet Estimate DecreasedL, Platelet Morphology Normal, Hypochromasia 3+, Anisocytosis 2+, Spherocytes 2+, Sodium Level 134L, Potassium Level 3.5, Chloride Level 100, Carbon Dioxide Level 29, Anion Gap 5, Blood Urea Nitrogen 27H, Creatinine 3.8H, Estimat Glomerular Filtration Rate 16.3, Glucose Level 118H, Uric Acid 2.5L, Calcium Level 7.0L, Phosphorus Level 3.4, Magnesium Level 1.5L, Total Bilirubin 0.2, Aspartate Amino Transf (AST/SGOT) 53H, Alanine Aminotransferase (ALT/SGPT) 35, Alkaline Phosphatase 118H, C-Reactive Protein, Quantitative 7.7H, Pro-B- Type Natriuretic Peptide 2270H, Total Protein 4.7L, Albumin 1.1L, Globulin 3.6, Albumin/Globulin Ratio 0.3L Height (Feet): 5 Height (Inches): 7.00 Weight (Pounds): 120 General Appearance: lethargic, confused EENT: normal ENT inspection Neck: normal alignment Cardiovascular: normal peripheral pulses, normal rate, regular rhythm Respiratory/Chest: chest wall non-tender, lungs clear, normal breath sounds Abdomen: normal bowel sounds, non tender, soft Extremities: normal inspection Edema: no edema noted Arm (L), no edema noted Arm (R), no edema noted Leg (L), no edema noted Leg (R), no edema noted Pedal (L), no edema noted Pedal (R), no edema noted Generalized Neurologic: motor weakness Skin: normal pigmentation, warm/dry ROBERT BANERJEE Aug 27, 2017 14:13
--- NOTE | 2017-08-27 14:19 | GI Progress Note ---
Assessment/Plan Problems: (1) Lymphoma ICD Codes: C85.90 - Non-Hodgkin lymphoma, unspecified, unspecified site SNOMED: 579656012 (2) Malnutrition ICD Codes: E46 - Unspecified protein-calorie malnutrition SNOMED: 72042354 (3) Anemia ICD Codes: D64.9 - Anemia, unspecified SNOMED: 659666404 (4) Anemia due to blood loss ICD Codes: D50.0 - Iron deficiency anemia secondary to blood loss (chronic) SNOMED: 546830419 (5) Dehydration ICD Codes: E86.0 - Dehydration SNOMED: 51348528 (6) UGI bleed ICD Codes: K92.2 - Gastrointestinal hemorrhage, unspecified SNOMED: 45478811 Status: stable, unchanged Status Narrative Discussed with Dr. Kitchen. Assessment/Plan SUMMARY FINDINGS: 1. Severe friable oozing blood from distal esophagus, most probably from chemo. 2. Gastritis, status post biopsy. Follow up biopsy results >> unremarkable, negative for H. Pylori RECOMMENDATIONS: Family refused PEG >> dc NGTF and adv diet today ppi BID + Carafate monitor H&H, prn transfusion electrolyte correction abx OT eval fu labs Subjective Subjective limited Objective Last 24 Hour Vital Signs Date Time Temp Pulse Resp B/P (MAP) Pulse Ox O2 Delivery O2 Flow Rate FiO2 08/27/17 11:37 97.8 77 21 121/70 96 Room Air 08/27/17 08:20 97.7 73 20 117/77 97 Room Air 08/27/17 04:00 98.4 69 20 128/73 96 08/27/17 00:00 98.4 79 19 120/66 94 08/26/17 20:00 98.6 64 20 122/70 97 08/26/17 16:00 97.9 75 20 118/63 97 Intake and Output 08/27/17 08/28/17 19:00 07:00 Intake Total 200 ml Output Total 380 ml Balance -180 ml IV Total 200 ml Drainage Total 380 ml Laboratory Tests Test 08/27/17 06:10 White Blood Count 6.1 K/UL (4.8-10.8) Red Blood Count 2.09 M/UL (4.70-6.10) L Hemoglobin 7.2 G/DL (14.2-18.0) L Hematocrit 20.9 % (42.0-52.0) L Mean Corpuscular Volume 100 FL (80-99) H Mean Corpuscular Hemoglobin 34.3 PG (27.0-31.0) H Mean Corpuscular Hemoglobin Concent 34.3 G/DL (32.0-36.0) Red Cell Distribution Width 18.5 % (11.6-14.8) H Platelet Count 70 K/UL (150-450) #L Mean Platelet Volume 6.6 FL (6.5-10.1) Neutrophils (%) (Auto) % (45.0-75.0) Lymphocytes (%) (Auto) % (20.0-45.0) Monocytes (%) (Auto) % (1.0-10.0) Eosinophils (%) (Auto) % (0.0-3.0) Basophils (%) (Auto) % (0.0-2.0) Differential Total Cells Counted 100 Neutrophils % (Manual) 84 % (45-75) H Lymphocytes % (Manual) 10 % (20-45) L Monocytes % (Manual) 3 % (1-10) Eosinophils % (Manual) 1 % (0-3) Basophils % (Manual) 0 % (0-2) Band Neutrophils 2 % (0-8) Platelet Estimate Decreased L Platelet Morphology Normal Hypochromasia 3+ Anisocytosis 2+ Spherocytes 2+ Sodium Level 134 MMOL/L (136-145) L Potassium Level 3.5 MMOL/L (3.5-5.1) Chloride Level 100 MMOL/L (98-107) Carbon Dioxide Level 29 MMOL/L (21-32) Anion Gap 5 mmol/L (5-15) Blood Urea Nitrogen 27 mg/dL (7-18) H Creatinine 3.8 MG/DL (0.55-1.30) H Estimat Glomerular Filtration Rate 16.3 mL/min (>60) Glucose Level 118 MG/DL (74-106) H Uric Acid 2.5 MG/DL (2.6-7.2) L Calcium Level 7.0 MG/DL (8.5-10.1) L Phosphorus Level 3.4 MG/DL (2.5-4.9) Magnesium Level 1.5 MG/DL (1.8-2.4) L Total Bilirubin 0.2 MG/DL (0.2-1.0) Aspartate Amino Transf (AST/SGOT) 53 U/L (15-37) H Alanine Aminotransferase (ALT/SGPT) 35 U/L (12-78) Alkaline Phosphatase 118 U/L (46-116) H C-Reactive Protein, Quantitative 7.7 mg/dL (0.00-0.90) H Pro-B-Type Natriuretic Peptide 2270 pg/mL (0-125) H Total Protein 4.7 G/DL (6.4-8.2) L Albumin 1.1 G/DL (3.4-5.0) L Globulin 3.6 g/dL Albumin/Globulin Ratio 0.3 (1.0-2.7) L Height (Feet): 5 Height (Inches): 7.00 Weight (Pounds): 120 General Appearance: no apparent distress, alert Cardiovascular: normal rate Respiratory/Chest: normal breath sounds, no respiratory distress Abdominal Exam: normal bowel sounds, non tender, soft, other - NGT Extremities: non-tender Lou Jarquin N.P. Aug 27, 2017 14:19
--- NOTE | 2017-08-27 14:26 | Infectious Diseases Prog Note ---
Assessment/Plan Assessment/Plan A: Recent necrotizing fascitis of R hip ? Mastoiditis Fungal UTI treated Acute renal failure CKD History of facial lymphoma Anemia VRE colonization Encephalopathy Hepatitis C Cellular immune deficiency, low CD4 GI bleeding, source esophagus Sinusitis P: observe off antibiotic may need prophylaxis for PCP Subjective ROS Limited/Unobtainable: No Constitutional: Reports: fatigue Respiratory: Reports: no symptoms Cardiovascular: Reports: no symptoms Gastrointestinal/Abdominal: Reports: no symptoms Allergies: Coded Allergies: No Known Allergies (Unverified , 08/17/17) Objective Vital Signs Last 24 Hour Vital Signs Date Time Temp Pulse Resp B/P (MAP) Pulse Ox O2 Delivery O2 Flow Rate FiO2 08/27/17 11:37 97.8 77 21 121/70 96 Room Air 08/27/17 08:20 97.7 73 20 117/77 97 Room Air 08/27/17 04:00 98.4 69 20 128/73 96 08/27/17 00:00 98.4 79 19 120/66 94 08/26/17 20:00 98.6 64 20 122/70 97 08/26/17 16:00 97.9 75 20 118/63 97 Height (Feet): 5 Height (Inches): 7.00 Weight (Pounds): 120 HEENT: other - dry mouth Respiratory/Chest: lungs clear Cardiovascular: normal rate, other Abdomen: soft, non tender, other - NG tube feeding Extremities: no edema Neurologic/Psychiatric: alert, responsive Laboratory Tests Test 08/27/17 06:10 White Blood Count 6.1 K/UL (4.8-10.8) Red Blood Count 2.09 M/UL (4.70-6.10) L Hemoglobin 7.2 G/DL (14.2-18.0) L Hematocrit 20.9 % (42.0-52.0) L Mean Corpuscular Volume 100 FL (80-99) H Mean Corpuscular Hemoglobin 34.3 PG (27.0-31.0) H Mean Corpuscular Hemoglobin Concent 34.3 G/DL (32.0-36.0) Red Cell Distribution Width 18.5 % (11.6-14.8) H Platelet Count 70 K/UL (150-450) #L Mean Platelet Volume 6.6 FL (6.5-10.1) Neutrophils (%) (Auto) % (45.0-75.0) Lymphocytes (%) (Auto) % (20.0-45.0) Monocytes (%) (Auto) % (1.0-10.0) Eosinophils (%) (Auto) % (0.0-3.0) Basophils (%) (Auto) % (0.0-2.0) Differential Total Cells Counted 100 Neutrophils % (Manual) 84 % (45-75) H Lymphocytes % (Manual) 10 % (20-45) L Monocytes % (Manual) 3 % (1-10) Eosinophils % (Manual) 1 % (0-3) Basophils % (Manual) 0 % (0-2) Band Neutrophils 2 % (0-8) Platelet Estimate Decreased L Platelet Morphology Normal Hypochromasia 3+ Anisocytosis 2+ Spherocytes 2+ Sodium Level 134 MMOL/L (136-145) L Potassium Level 3.5 MMOL/L (3.5-5.1) Chloride Level 100 MMOL/L (98-107) Carbon Dioxide Level 29 MMOL/L (21-32) Anion Gap 5 mmol/L (5-15) Blood Urea Nitrogen 27 mg/dL (7-18) H Creatinine 3.8 MG/DL (0.55-1.30) H Estimat Glomerular Filtration Rate 16.3 mL/min (>60) Glucose Level 118 MG/DL (74-106) H Uric Acid 2.5 MG/DL (2.6-7.2) L Calcium Level 7.0 MG/DL (8.5-10.1) L Phosphorus Level 3.4 MG/DL (2.5-4.9) Magnesium Level 1.5 MG/DL (1.8-2.4) L Total Bilirubin 0.2 MG/DL (0.2-1.0) Aspartate Amino Transf (AST/SGOT) 53 U/L (15-37) H Alanine Aminotransferase (ALT/SGPT) 35 U/L (12-78) Alkaline Phosphatase 118 U/L (46-116) H C-Reactive Protein, Quantitative 7.7 mg/dL (0.00-0.90) H Pro-B-Type Natriuretic Peptide 2270 pg/mL (0-125) H Total Protein 4.7 G/DL (6.4-8.2) L Albumin 1.1 G/DL (3.4-5.0) L Globulin 3.6 g/dL Albumin/Globulin Ratio 0.3 (1.0-2.7) L Current Medications Medications (Trade) Dose Ordered Sig/Srini Route PRN Reason Start Time Stop Time Status Last Admin Dose Admin Acetaminophen (Tylenol) 650 mg Q4H PRN ORAL fever 08/23/17 18:10 09/16/17 18:09 Chlorhexidine Gluconate (Sandra-Hex 2%) 1 applic DAILY@2000 TOPIC 08/23/17 20:00 09/17/17 19:59 08/26/17 20:40 Clonidine HCl (Catapres) 0.1 mg Q4H PRN GT SBP > 160 08/23/17 18:00 09/16/17 21:59 Dextrose 1,000 ml @ 50 mls/hr Q20H IV 08/23/17 18:10 09/19/17 18:09 08/27/17 02:17 Dextrose (Dextrose 50%) STAT PRN IV Hypoglycemia 08/23/17 18:10 09/16/17 18:09 Fluconazole (Diflucan) 100 mg DAILY@1800 NG 08/25/17 18:00 09/01/17 17:59 08/26/17 18:29 Levetiracetam 100 ml @ 400 mls/hr Q12HR IVPB 08/23/17 21:00 09/18/17 13:29 08/27/17 10:05 Levothyroxine Sodium (Synthroid) 75 mcg ACBREAKFAST GT 08/24/17 06:30 09/21/17 06:29 08/27/17 06:08 Morphine Sulfate (Morphine Sulfate) 2 mg Q4H PRN IVP For Pain 08/25/17 12:45 09/01/17 12:44 08/27/17 10:05 Ondansetron HCl (Zofran) 4 mg Q6H PRN IVP Nausea & Vomiting 08/23/17 18:10 09/16/17 18:09 08/25/17 18:10 Pantoprazole (Protonix) 40 mg EVERY 12 HOURS IVP 08/23/17 21:00 09/20/17 20:59 08/27/17 10:05 Polyethylene Glycol (Miralax) 17 gm HSPRN PRN GT Constipation 08/23/17 18:10 09/21/17 18:09 Sucralfate (Carafate) 1 gm FOUR TIMES A DAY ORAL 08/23/17 18:00 09/20/17 12:59 08/27/17 13:02 Zolpidem Tartrate (Ambien) 5 mg HSPRN PRN GT Insomnia 08/23/17 18:10 08/29/17 18:09 TOYA ENGLISH Aug 27, 2017 14:26
--- NOTE | 2017-08-27 14:38 | General Surgery Progress Note ---
General Surgery-Progress Note Subjective Procedure Performed Wound VAC change for large right hip wound Additional Comments stable. VAC changed yesterday. wound clean. VAC functional Objective Last 24 Hour Vital Signs Date Time Temp Pulse Resp B/P (MAP) Pulse Ox O2 Delivery O2 Flow Rate FiO2 08/27/17 11:37 97.8 77 21 121/70 96 Room Air 08/27/17 08:20 97.7 73 20 117/77 97 Room Air 08/27/17 04:00 98.4 69 20 128/73 96 08/27/17 00:00 98.4 79 19 120/66 94 08/26/17 20:00 98.6 64 20 122/70 97 08/26/17 16:00 97.9 75 20 118/63 97 I&O Intake and Output 08/27/17 08/28/17 19:00 07:00 Intake Total 200 ml Output Total 380 ml Balance -180 ml IV Total 200 ml Drainage Total 380 ml Drains: wound vac Laboratory Tests Test 08/27/17 06:10 White Blood Count 6.1 K/UL (4.8-10.8) Red Blood Count 2.09 M/UL (4.70-6.10) L Hemoglobin 7.2 G/DL (14.2-18.0) L Hematocrit 20.9 % (42.0-52.0) L Mean Corpuscular Volume 100 FL (80-99) H Mean Corpuscular Hemoglobin 34.3 PG (27.0-31.0) H Mean Corpuscular Hemoglobin Concent 34.3 G/DL (32.0-36.0) Red Cell Distribution Width 18.5 % (11.6-14.8) H Platelet Count 70 K/UL (150-450) #L Mean Platelet Volume 6.6 FL (6.5-10.1) Neutrophils (%) (Auto) % (45.0-75.0) Lymphocytes (%) (Auto) % (20.0-45.0) Monocytes (%) (Auto) % (1.0-10.0) Eosinophils (%) (Auto) % (0.0-3.0) Basophils (%) (Auto) % (0.0-2.0) Differential Total Cells Counted 100 Neutrophils % (Manual) 84 % (45-75) H Lymphocytes % (Manual) 10 % (20-45) L Monocytes % (Manual) 3 % (1-10) Eosinophils % (Manual) 1 % (0-3) Basophils % (Manual) 0 % (0-2) Band Neutrophils 2 % (0-8) Platelet Estimate Decreased L Platelet Morphology Normal Hypochromasia 3+ Anisocytosis 2+ Spherocytes 2+ Sodium Level 134 MMOL/L (136-145) L Potassium Level 3.5 MMOL/L (3.5-5.1) Chloride Level 100 MMOL/L (98-107) Carbon Dioxide Level 29 MMOL/L (21-32) Anion Gap 5 mmol/L (5-15) Blood Urea Nitrogen 27 mg/dL (7-18) H Creatinine 3.8 MG/DL (0.55-1.30) H Estimat Glomerular Filtration Rate 16.3 mL/min (>60) Glucose Level 118 MG/DL (74-106) H Uric Acid 2.5 MG/DL (2.6-7.2) L Calcium Level 7.0 MG/DL (8.5-10.1) L Phosphorus Level 3.4 MG/DL (2.5-4.9) Magnesium Level 1.5 MG/DL (1.8-2.4) L Total Bilirubin 0.2 MG/DL (0.2-1.0) Aspartate Amino Transf (AST/SGOT) 53 U/L (15-37) H Alanine Aminotransferase (ALT/SGPT) 35 U/L (12-78) Alkaline Phosphatase 118 U/L (46-116) H C-Reactive Protein, Quantitative 7.7 mg/dL (0.00-0.90) H Pro-B-Type Natriuretic Peptide 2270 pg/mL (0-125) H Total Protein 4.7 G/DL (6.4-8.2) L Albumin 1.1 G/DL (3.4-5.0) L Globulin 3.6 g/dL Albumin/Globulin Ratio 0.3 (1.0-2.7) L Plan Problems: (1) Wound, open, hip or thigh Assessment & Plan: 62M here for medical evaluation and management. has large right lateral hip wound after episode of soft tissue infection requiring large debridement. wound has been managed at outside facility and will be managed by surgery while in hospital. VAC removed wound evaluated. good granulation tissue over large area of debridement. no tissues currently needing debridement. no drainage. no signs of active infection -keep wound clean. continue with VAC q3days at 100mmHg. -next planned change 08/29 -will monitor wound with VAC changes. -will do debridement as necessary. thank you for this consultation and allowing me to participate in patients care. will follow with Mauricio Abel Aug 27, 2017 14:38
[2017-08-27 15:49] VITALS: BP 114/65
--- NOTE | 2017-08-27 16:42 | Cardiac Electrophysiology PN ---
Assessment/Plan Status Narrative Normal left ventricular chamber size, systolic function and wall motion to extent visualized. Left ventricular ejection fraction estimated to be grossly normal. No evidence of left ventricular hypertrophy. No evidence of pericardial effusion. All other cardiac chamber sizes are within normal limits. Focal aortic valve sclerosis with adequate cusp excursion. Thickened mitral valve leaflets with normal excursion. Mild mitral annulus and aortic root calcification. Pulmonic valve not visualized. Normal tricuspid valve structure. IVC at normal size with physiologic collapse. Assessment/Plan 1. Abnormal electrocardiogram with primary T-wave abnormality.1st and 3rd trop were negative and second one 0.7. Due to renal failure and sepsis.Echocardiogram Nl EF. No chest pain or SOB. 2. Metabolic acidosis with carbon dioxide of only 7.Due to renal failure and sepsis 3. BNP of more than 5000. Due to renal failure and volume overload. 4. Renal failure. S/P Tray catheter and HD per Dr. Blakely 5. Hypernatremia. On D5W 6. Altered mental status. Head CT showed no acute intracranial bleed, mass effect, or edema. MRI brain showed Age-related volume loss and Negative for acute intracranial bleed, infarct, or mass effect 7. Hematemesis. S/P EGD by Dr Kitchen. Getting blood transfusion. 8. Dysphagia. Passed swallow eval LINDSEY RN Subjective Subjective No chest pain or SOB.NG tube removed. Getting blood transfusion. Objective Last 24 Hour Vital Signs Date Time Temp Pulse Resp B/P (MAP) Pulse Ox O2 Delivery O2 Flow Rate FiO2 08/27/17 15:49 97.4 84 21 114/65 96 Room Air 08/27/17 11:37 97.8 77 21 121/70 96 Room Air 08/27/17 08:20 97.7 73 20 117/77 97 Room Air 08/27/17 04:00 98.4 69 20 128/73 96 08/27/17 00:00 98.4 79 19 120/66 94 08/26/17 20:00 98.6 64 20 122/70 97 Intake and Output 08/27/17 08/28/17 19:00 07:00 Intake Total 200 ml Output Total 380 ml Balance -180 ml IV Total 200 ml Drainage Total 380 ml Laboratory Tests Test 08/27/17 06:10 White Blood Count 6.1 K/UL (4.8-10.8) Red Blood Count 2.09 M/UL (4.70-6.10) L Hemoglobin 7.2 G/DL (14.2-18.0) L Hematocrit 20.9 % (42.0-52.0) L Mean Corpuscular Volume 100 FL (80-99) H Mean Corpuscular Hemoglobin 34.3 PG (27.0-31.0) H Mean Corpuscular Hemoglobin Concent 34.3 G/DL (32.0-36.0) Red Cell Distribution Width 18.5 % (11.6-14.8) H Platelet Count 70 K/UL (150-450) #L Mean Platelet Volume 6.6 FL (6.5-10.1) Neutrophils (%) (Auto) % (45.0-75.0) Lymphocytes (%) (Auto) % (20.0-45.0) Monocytes (%) (Auto) % (1.0-10.0) Eosinophils (%) (Auto) % (0.0-3.0) Basophils (%) (Auto) % (0.0-2.0) Differential Total Cells Counted 100 Neutrophils % (Manual) 84 % (45-75) H Lymphocytes % (Manual) 10 % (20-45) L Monocytes % (Manual) 3 % (1-10) Eosinophils % (Manual) 1 % (0-3) Basophils % (Manual) 0 % (0-2) Band Neutrophils 2 % (0-8) Platelet Estimate Decreased L Platelet Morphology Normal Hypochromasia 3+ Anisocytosis 2+ Spherocytes 2+ Sodium Level 134 MMOL/L (136-145) L Potassium Level 3.5 MMOL/L (3.5-5.1) Chloride Level 100 MMOL/L (98-107) Carbon Dioxide Level 29 MMOL/L (21-32) Anion Gap 5 mmol/L (5-15) Blood Urea Nitrogen 27 mg/dL (7-18) H Creatinine 3.8 MG/DL (0.55-1.30) H Estimat Glomerular Filtration Rate 16.3 mL/min (>60) Glucose Level 118 MG/DL (74-106) H Uric Acid 2.5 MG/DL (2.6-7.2) L Calcium Level 7.0 MG/DL (8.5-10.1) L Phosphorus Level 3.4 MG/DL (2.5-4.9) Magnesium Level 1.5 MG/DL (1.8-2.4) L Total Bilirubin 0.2 MG/DL (0.2-1.0) Aspartate Amino Transf (AST/SGOT) 53 U/L (15-37) H Alanine Aminotransferase (ALT/SGPT) 35 U/L (12-78) Alkaline Phosphatase 118 U/L (46-116) H C-Reactive Protein, Quantitative 7.7 mg/dL (0.00-0.90) H Pro-B-Type Natriuretic Peptide 2270 pg/mL (0-125) H Total Protein 4.7 G/DL (6.4-8.2) L Albumin 1.1 G/DL (3.4-5.0) L Globulin 3.6 g/dL Albumin/Globulin Ratio 0.3 (1.0-2.7) L Objective HEAD AND NECK: No JVD. Right face scar LUNGS: Clear. CARDIOVASCULAR: Regular. S1 and S2 with no gallop, his chest has a right- sided port. ABDOMEN: Soft. EXTREMITIES: No edema. NICOLÁS PARKINSON Aug 27, 2017 16:41
--- NOTE | 2017-08-27 16:54 | Pulmonology Progress Note ---
Assessment/Plan Problems: (1) UGI bleed (2) Anemia (3) Malnutrition (4) Acute renal failure (ARF) Assessment/Plan getting blood swallow study noted diet started advance diet as tolerated PT/ot nutrition evaluation. med/surg check labs in am all labs reviewed. Subjective ROS Limited/Unobtainable: No Interval Events: no new complains Allergies: Coded Allergies: No Known Allergies (Unverified , 08/17/17) Objective Last 24 Hour Vital Signs Date Time Temp Pulse Resp B/P (MAP) Pulse Ox O2 Delivery O2 Flow Rate FiO2 08/27/17 15:49 97.4 84 21 114/65 96 Room Air 08/27/17 11:37 97.8 77 21 121/70 96 Room Air 08/27/17 08:20 97.7 73 20 117/77 97 Room Air 08/27/17 04:00 98.4 69 20 128/73 96 08/27/17 00:00 98.4 79 19 120/66 94 08/26/17 20:00 98.6 64 20 122/70 97 Intake and Output 08/27/17 08/28/17 19:00 07:00 Intake Total 200 ml Output Total 380 ml Balance -180 ml IV Total 200 ml Drainage Total 380 ml Objective General Appearance: WD/WN HEENT: normocephalic, atraumatic Respiratory/Chest: chest wall non-tender, lungs clear Breasts: no masses Cardiovascular: normal peripheral pulses Abdomen: normal bowel sounds, soft, non tender Genitourinary: normal external genitalia Skin: no rash Laboratory Tests 08/27/17 06:10: White Blood Count 6.1, Red Blood Count 2.09L, Hemoglobin 7.2L, Hematocrit 20.9L , Mean Corpuscular Volume 100H, Mean Corpuscular Hemoglobin 34.3H, Mean Corpuscular Hemoglobin Concent 34.3, Red Cell Distribution Width 18.5H, Platelet Count 70#L, Mean Platelet Volume 6.6, Neutrophils (%) (Auto) , Lymphocytes (%) (Auto) , Monocytes (%) (Auto) , Eosinophils (%) (Auto) , Basophils (%) (Auto) , Differential Total Cells Counted 100, Neutrophils % ( Manual) 84H, Lymphocytes % (Manual) 10L, Monocytes % (Manual) 3, Eosinophils % ( Manual) 1, Basophils % (Manual) 0, Band Neutrophils 2, Platelet Estimate DecreasedL, Platelet Morphology Normal, Hypochromasia 3+, Anisocytosis 2+, Spherocytes 2+, Sodium Level 134L, Potassium Level 3.5, Chloride Level 100, Carbon Dioxide Level 29, Anion Gap 5, Blood Urea Nitrogen 27H, Creatinine 3.8H, Estimat Glomerular Filtration Rate 16.3, Glucose Level 118H, Uric Acid 2.5L, Calcium Level 7.0L, Phosphorus Level 3.4, Magnesium Level 1.5L, Total Bilirubin 0.2, Aspartate Amino Transf (AST/SGOT) 53H, Alanine Aminotransferase (ALT/SGPT) 35, Alkaline Phosphatase 118H, C-Reactive Protein, Quantitative 7.7H, Pro-B- Type Natriuretic Peptide 2270H, Total Protein 4.7L, Albumin 1.1L, Globulin 3.6, Albumin/Globulin Ratio 0.3L Current Medications Medications (Trade) Dose Ordered Sig/Srini Route PRN Reason Start Time Stop Time Status Last Admin Dose Admin Acetaminophen (Tylenol) 650 mg Q4H PRN ORAL fever 08/23/17 18:10 09/16/17 18:09 Chlorhexidine Gluconate (Sandra-Hex 2%) 1 applic DAILY@2000 TOPIC 08/23/17 20:00 09/17/17 19:59 08/26/17 20:40 Clonidine HCl (Catapres) 0.1 mg Q4H PRN GT SBP > 160 08/23/17 18:00 09/16/17 21:59 Dextrose 1,000 ml @ 50 mls/hr Q20H IV 08/23/17 18:10 09/19/17 18:09 08/27/17 02:17 Dextrose (Dextrose 50%) STAT PRN IV Hypoglycemia 08/23/17 18:10 09/16/17 18:09 Fluconazole (Diflucan) 100 mg DAILY@1800 NG 08/25/17 18:00 09/01/17 17:59 08/26/17 18:29 Levetiracetam 100 ml @ 400 mls/hr Q12HR IVPB 08/23/17 21:00 09/18/17 13:29 08/27/17 10:05 Levothyroxine Sodium (Synthroid) 75 mcg ACBREAKFAST GT 08/24/17 06:30 09/21/17 06:29 08/27/17 06:08 Morphine Sulfate (Morphine Sulfate) 2 mg Q4H PRN IVP For Pain 08/25/17 12:45 09/01/17 12:44 08/27/17 10:05 Ondansetron HCl (Zofran) 4 mg Q6H PRN IVP Nausea & Vomiting 08/23/17 18:10 09/16/17 18:09 08/25/17 18:10 Pantoprazole (Protonix) 40 mg EVERY 12 HOURS IVP 08/23/17 21:00 09/20/17 20:59 08/27/17 10:05 Polyethylene Glycol (Miralax) 17 gm HSPRN PRN GT Constipation 08/23/17 18:10 09/21/17 18:09 Sucralfate (Carafate) 1 gm FOUR TIMES A DAY ORAL 08/23/17 18:00 09/20/17 12:59 08/27/17 13:02 Zolpidem Tartrate (Ambien) 5 mg HSPRN PRN GT Insomnia 08/23/17 18:10 08/29/17 18:09 MAYRA BAKER Aug 27, 2017 16:54
[2017-08-27] MEDS: Fluconazole 100mg tab NG SCH (17:38)
[2017-08-27] MEDS ORDERED: Tubing Blood Filter IV ONE (18:53)
[2017-08-27] MEDS ORDERED: D5W 275ml ONE (18:53)
[2017-08-27 20:00] VITALS: BP 121/69
[2017-08-27] MEDS: Dyna-Hex 2% Top Sol 2oz TOPIC SCH (20:36)
[2017-08-28] VITALS: BP 130/71
[2017-08-28 04:00] VITALS: BP 124/64
[2017-08-28 07:10] LABS: MEAN CORPUSCULAR HEMOGLOBIN 30.8 PG (27.0-31.0); MEAN CORPUSCULAR HGB CONC 32.1 G/DL (32.0-36.0); MEAN CORPUSCULAR VOLUME 96 FL (80-99); MEAN PLATELET VOLUME 5.4 FL (6.5-10.1); PLATELET COUNT 94 K/UL (150-450); RED BLOOD COUNT 2.54 M/UL (4.70-6.10); RED CELL DISTRIBUTION WIDTH 18.2 % (11.6-14.8); WHITE BLOOD COUNT 5.2 K/UL (4.8-10.8)
[2017-08-28 07:35] LABS: ALANINE AMINOTRANSFERASE 36 U/L (12-78); ALBUMIN/GLOBULIN RATIO 0.3 (1.0-2.7); ANION GAP 5 mmol/L (5-15); ASPARTATE AMINO TRANSFERASE 56 U/L (15-37); CALCIUM 7.4 MG/DL (8.5-10.1); CARBON DIOXIDE 28 MMOL/L (21-32); CHLORIDE 100 MMOL/L (98-107); CREATININE 4.1 MG/DL (0.55-1.30); MAGNESIUM 2.2 MG/DL (1.8-2.4); PHOSPHORUS 3.5 MG/DL (2.5-4.9); POTASSIUM 3.6 MMOL/L (3.5-5.1); SODIUM 133 MMOL/L (136-145); TOTAL PROTEIN 4.9 G/DL (6.4-8.2)
[2017-08-28 08:00] VITALS: BP 126/68
[2017-08-28] MEDS: Pantoprazole Inj IVP SCH ×2 (08:37→21:23)
[2017-08-28] MEDS: Sucralfate 1gm tab ORAL SCH ×5 (08:38→21:23)
[2017-08-28] MEDS: levETIRAcetam 1,000mg/NS100ml 100 ML IVPB SCH ×2 (08:38→21:24)
[2017-08-28 09:29] LABS: ANISOCYTOSIS 1+; BAND NEUTROPHILS % (MANUAL) 0 % (0-8); BASOPHILS % (MANUAL) 0 % (0-2); EOSINOPHILS % (MANUAL) 3 % (0-3); HYPOCHROMASIA 1+; LYMPHOCYTES % (MANUAL) 11 % (20-45); NEUTROPHILS % (MANUAL) 79 % (45-75); PLATELET ESTIMATE DECREASED; PLATELET MORPHOLOGY NORMAL; TOTAL CELLS COUNTED 100
--- NOTE | 2017-08-28 11:03 | GI Progress Note ---
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 Kitchen. Assessment/Plan SUMMARY FINDINGS: 1. Severe friable oozing blood from distal esophagus, most probably from chemo. 2. Gastritis, status post biopsy. Follow up biopsy results >> unremarkable, negative for H. Pylori RECOMMENDATIONS: Family refused PEG >> dc NGTF and adv diet push PO ppi BID + Carafate monitor H&H, prn transfusion electrolyte correction abx OT eval fu labs Subjective Subjective limited Objective Last 24 Hour Vital Signs Date Time Temp Pulse Resp B/P (MAP) Pulse Ox O2 Delivery O2 Flow Rate FiO2 08/28/17 08:00 98.0 73 18 126/68 96 08/28/17 04:00 97.6 70 18 124/64 95 08/28/17 00:00 97.7 65 18 130/71 95 08/27/17 20:00 97.4 72 18 121/69 95 08/27/17 15:49 97.4 84 21 114/65 96 Room Air 08/27/17 11:37 97.8 77 21 121/70 96 Room Air Laboratory Tests Test 08/28/17 06:00 White Blood Count 5.2 K/UL (4.8-10.8) Red Blood Count 2.54 M/UL (4.70-6.10) L Hemoglobin 7.8 G/DL (14.2-18.0) L Hematocrit 24.4 % (42.0-52.0) L Mean Corpuscular Volume 96 FL (80-99) Mean Corpuscular Hemoglobin 30.8 PG (27.0-31.0) Mean Corpuscular Hemoglobin Concent 32.1 G/DL (32.0-36.0) Red Cell Distribution Width 18.2 % (11.6-14.8) H Platelet Count 94 K/UL (150-450) L Mean Platelet Volume 5.4 FL (6.5-10.1) L Neutrophils (%) (Auto) % (45.0-75.0) Lymphocytes (%) (Auto) % (20.0-45.0) Monocytes (%) (Auto) % (1.0-10.0) Eosinophils (%) (Auto) % (0.0-3.0) Basophils (%) (Auto) % (0.0-2.0) Differential Total Cells Counted 100 Neutrophils % (Manual) 79 % (45-75) H Lymphocytes % (Manual) 11 % (20-45) L Monocytes % (Manual) 7 % (1-10) Eosinophils % (Manual) 3 % (0-3) Basophils % (Manual) 0 % (0-2) Band Neutrophils 0 % (0-8) Platelet Estimate Decreased L Platelet Morphology Normal Hypochromasia 1+ Anisocytosis 1+ Sodium Level 133 MMOL/L (136-145) L Potassium Level 3.6 MMOL/L (3.5-5.1) Chloride Level 100 MMOL/L (98-107) Carbon Dioxide Level 28 MMOL/L (21-32) Anion Gap 5 mmol/L (5-15) Blood Urea Nitrogen 28 mg/dL (7-18) H Creatinine 4.1 MG/DL (0.55-1.30) H Estimat Glomerular Filtration Rate 15.0 mL/min (>60) Glucose Level 96 MG/DL (74-106) Calcium Level 7.4 MG/DL (8.5-10.1) L Phosphorus Level 3.5 MG/DL (2.5-4.9) Magnesium Level 2.2 MG/DL (1.8-2.4) Total Bilirubin 0.3 MG/DL (0.2-1.0) Aspartate Amino Transf (AST/SGOT) 56 U/L (15-37) H Alanine Aminotransferase (ALT/SGPT) 36 U/L (12-78) Alkaline Phosphatase 90 U/L (46-116) Total Protein 4.9 G/DL (6.4-8.2) L Albumin 1.1 G/DL (3.4-5.0) L Globulin 3.8 g/dL Albumin/Globulin Ratio 0.3 (1.0-2.7) L Height (Feet): 5 Height (Inches): 7.00 Weight (Pounds): 120 General Appearance: WD/WN, no apparent distress, alert, thin Cardiovascular: normal rate Respiratory/Chest: normal breath sounds, no respiratory distress Abdominal Exam: normal bowel sounds, non tender, soft Extremities: non-tender Lou Jarquin N.P. Aug 28, 2017 11:03
--- NOTE | 2017-08-28 11:09 | General Surgery Progress Note ---
General Surgery-Progress Note Subjective Procedure Performed Wound VAC change for large right hip wound Additional Comments stable. vac functional. no issues. Objective Last 24 Hour Vital Signs Date Time Temp Pulse Resp B/P (MAP) Pulse Ox O2 Delivery O2 Flow Rate FiO2 08/28/17 08:00 98.0 73 18 126/68 96 08/28/17 04:00 97.6 70 18 124/64 95 08/28/17 00:00 97.7 65 18 130/71 95 08/27/17 20:00 97.4 72 18 121/69 95 08/27/17 15:49 97.4 84 21 114/65 96 Room Air 08/27/17 11:37 97.8 77 21 121/70 96 Room Air Drains: wound vac Laboratory Tests Test 08/28/17 06:00 White Blood Count 5.2 K/UL (4.8-10.8) Red Blood Count 2.54 M/UL (4.70-6.10) L Hemoglobin 7.8 G/DL (14.2-18.0) L Hematocrit 24.4 % (42.0-52.0) L Mean Corpuscular Volume 96 FL (80-99) Mean Corpuscular Hemoglobin 30.8 PG (27.0-31.0) Mean Corpuscular Hemoglobin Concent 32.1 G/DL (32.0-36.0) Red Cell Distribution Width 18.2 % (11.6-14.8) H Platelet Count 94 K/UL (150-450) L Mean Platelet Volume 5.4 FL (6.5-10.1) L Neutrophils (%) (Auto) % (45.0-75.0) Lymphocytes (%) (Auto) % (20.0-45.0) Monocytes (%) (Auto) % (1.0-10.0) Eosinophils (%) (Auto) % (0.0-3.0) Basophils (%) (Auto) % (0.0-2.0) Differential Total Cells Counted 100 Neutrophils % (Manual) 79 % (45-75) H Lymphocytes % (Manual) 11 % (20-45) L Monocytes % (Manual) 7 % (1-10) Eosinophils % (Manual) 3 % (0-3) Basophils % (Manual) 0 % (0-2) Band Neutrophils 0 % (0-8) Platelet Estimate Decreased L Platelet Morphology Normal Hypochromasia 1+ Anisocytosis 1+ Sodium Level 133 MMOL/L (136-145) L Potassium Level 3.6 MMOL/L (3.5-5.1) Chloride Level 100 MMOL/L (98-107) Carbon Dioxide Level 28 MMOL/L (21-32) Anion Gap 5 mmol/L (5-15) Blood Urea Nitrogen 28 mg/dL (7-18) H Creatinine 4.1 MG/DL (0.55-1.30) H Estimat Glomerular Filtration Rate 15.0 mL/min (>60) Glucose Level 96 MG/DL (74-106) Calcium Level 7.4 MG/DL (8.5-10.1) L Phosphorus Level 3.5 MG/DL (2.5-4.9) Magnesium Level 2.2 MG/DL (1.8-2.4) Total Bilirubin 0.3 MG/DL (0.2-1.0) Aspartate Amino Transf (AST/SGOT) 56 U/L (15-37) H Alanine Aminotransferase (ALT/SGPT) 36 U/L (12-78) Alkaline Phosphatase 90 U/L (46-116) Total Protein 4.9 G/DL (6.4-8.2) L Albumin 1.1 G/DL (3.4-5.0) L Globulin 3.8 g/dL Albumin/Globulin Ratio 0.3 (1.0-2.7) L Plan Problems: (1) Wound, open, hip or thigh Assessment & Plan: 62M here for medical evaluation and management. has large right lateral hip wound after episode of soft tissue infection requiring large debridement. wound has been managed at outside facility and will be managed by surgery while in hospital. VAC removed wound evaluated. good granulation tissue over large area of debridement. no tissues currently needing debridement. no drainage. no signs of active infection -keep wound clean. continue with VAC q3days at 100mmHg. -next planned change 08/29 -will monitor wound with VAC changes. -will do debridement as necessary. thank you for this consultation and allowing me to participate in patients care. will follow with Mauricio Abel Aug 28, 2017 11:09
--- NOTE | 2017-08-28 11:23 | Infectious Diseases Prog Note ---
Assessment/Plan Assessment/Plan A: Recent necrotizing fascitis of R hip ? Mastoiditis Fungal UTI treated Acute renal failure CKD History of facial lymphoma Anemia VRE colonization Encephalopathy Hepatitis C Cellular immune deficiency, low CD4 GI bleeding, source esophagus Sinusitis P: observe off antibiotic Subjective ROS Limited/Unobtainable: No Constitutional: Reports: other - poor appetite Respiratory: Reports: no symptoms Cardiovascular: Reports: no symptoms Gastrointestinal/Abdominal: Reports: no symptoms Allergies: Coded Allergies: No Known Allergies (Unverified , 08/17/17) Objective Vital Signs Last 24 Hour Vital Signs Date Time Temp Pulse Resp B/P (MAP) Pulse Ox O2 Delivery O2 Flow Rate FiO2 08/28/17 08:00 98.0 73 18 126/68 96 08/28/17 04:00 97.6 70 18 124/64 95 08/28/17 00:00 97.7 65 18 130/71 95 08/27/17 20:00 97.4 72 18 121/69 95 08/27/17 15:49 97.4 84 21 114/65 96 Room Air 08/27/17 11:37 97.8 77 21 121/70 96 Room Air Height (Feet): 5 Height (Inches): 7.00 Weight (Pounds): 120 General Appearance: no acute distress HEENT: mucous membranes moist Respiratory/Chest: lungs clear Cardiovascular: normal rate, other - RIJ HD line Abdomen: soft, non tender Extremities: no edema Neurologic/Psychiatric: alert, responsive Laboratory Tests Test 08/28/17 06:00 White Blood Count 5.2 K/UL (4.8-10.8) Red Blood Count 2.54 M/UL (4.70-6.10) L Hemoglobin 7.8 G/DL (14.2-18.0) L Hematocrit 24.4 % (42.0-52.0) L Mean Corpuscular Volume 96 FL (80-99) Mean Corpuscular Hemoglobin 30.8 PG (27.0-31.0) Mean Corpuscular Hemoglobin Concent 32.1 G/DL (32.0-36.0) Red Cell Distribution Width 18.2 % (11.6-14.8) H Platelet Count 94 K/UL (150-450) L Mean Platelet Volume 5.4 FL (6.5-10.1) L Neutrophils (%) (Auto) % (45.0-75.0) Lymphocytes (%) (Auto) % (20.0-45.0) Monocytes (%) (Auto) % (1.0-10.0) Eosinophils (%) (Auto) % (0.0-3.0) Basophils (%) (Auto) % (0.0-2.0) Differential Total Cells Counted 100 Neutrophils % (Manual) 79 % (45-75) H Lymphocytes % (Manual) 11 % (20-45) L Monocytes % (Manual) 7 % (1-10) Eosinophils % (Manual) 3 % (0-3) Basophils % (Manual) 0 % (0-2) Band Neutrophils 0 % (0-8) Platelet Estimate Decreased L Platelet Morphology Normal Hypochromasia 1+ Anisocytosis 1+ Sodium Level 133 MMOL/L (136-145) L Potassium Level 3.6 MMOL/L (3.5-5.1) Chloride Level 100 MMOL/L (98-107) Carbon Dioxide Level 28 MMOL/L (21-32) Anion Gap 5 mmol/L (5-15) Blood Urea Nitrogen 28 mg/dL (7-18) H Creatinine 4.1 MG/DL (0.55-1.30) H Estimat Glomerular Filtration Rate 15.0 mL/min (>60) Glucose Level 96 MG/DL (74-106) Calcium Level 7.4 MG/DL (8.5-10.1) L Phosphorus Level 3.5 MG/DL (2.5-4.9) Magnesium Level 2.2 MG/DL (1.8-2.4) Total Bilirubin 0.3 MG/DL (0.2-1.0) Aspartate Amino Transf (AST/SGOT) 56 U/L (15-37) H Alanine Aminotransferase (ALT/SGPT) 36 U/L (12-78) Alkaline Phosphatase 90 U/L (46-116) Total Protein 4.9 G/DL (6.4-8.2) L Albumin 1.1 G/DL (3.4-5.0) L Globulin 3.8 g/dL Albumin/Globulin Ratio 0.3 (1.0-2.7) L Current Medications Medications (Trade) Dose Ordered Sig/Srini Route PRN Reason Start Time Stop Time Status Last Admin Dose Admin Acetaminophen (Tylenol) 650 mg Q4H PRN ORAL fever 12/8/17 18:10 09/16/17 18:09 Chlorhexidine Gluconate (Sandra-Hex 2%) 1 applic DAILY@2000 TOPIC 08/23/17 20:00 09/17/17 19:59 08/27/17 20:36 Clonidine HCl (Catapres) 0.1 mg Q4H PRN GT SBP > 160 08/23/17 18:00 09/16/17 21:59 Dextrose 1,000 ml @ 50 mls/hr Q20H IV 08/23/17 18:10 09/19/17 18:09 08/28/17 00:04 Dextrose (Dextrose 50%) STAT PRN IV Hypoglycemia 08/23/17 18:10 09/16/17 18:09 Fluconazole (Diflucan) 100 mg DAILY@1800 NG 08/25/17 18:00 09/01/17 17:59 08/27/17 17:38 Levetiracetam 100 ml @ 400 mls/hr Q12HR IVPB 08/23/17 21:00 09/18/17 13:29 08/28/17 08:38 Levothyroxine Sodium (Synthroid) 75 mcg ACBREAKFAST GT 08/24/17 06:30 09/21/17 06:29 08/28/17 06:25 Morphine Sulfate (Morphine Sulfate) 2 mg Q4H PRN IVP For Pain 08/25/17 12:45 09/01/17 12:44 08/27/17 17:38 Ondansetron HCl (Zofran) 4 mg Q6H PRN IVP Nausea & Vomiting 08/23/17 18:10 09/16/17 18:09 08/25/17 18:10 Pantoprazole (Protonix) 40 mg EVERY 12 HOURS IVP 08/23/17 21:00 09/20/17 20:59 08/28/17 08:37 Polyethylene Glycol (Miralax) 17 gm HSPRN PRN GT Constipation 08/23/17 18:10 09/21/17 18:09 Sucralfate (Carafate) 1 gm FOUR TIMES A DAY ORAL 08/23/17 18:00 09/20/17 12:59 08/28/17 08:38 Zolpidem Tartrate (Ambien) 5 mg HSPRN PRN GT Insomnia 08/23/17 18:10 08/29/17 18:09 TOYA ENGLISH Aug 28, 2017 11:23
[2017-08-28 12:00] VITALS: BP 122/67
--- NOTE | 2017-08-28 12:12 | Cardiac Electrophysiology PN ---
Assessment/Plan Status Narrative Normal left ventricular chamber size, systolic function and wall motion to extent visualized. Left ventricular ejection fraction estimated to be grossly normal. No evidence of left ventricular hypertrophy. No evidence of pericardial effusion. All other cardiac chamber sizes are within normal limits. Focal aortic valve sclerosis with adequate cusp excursion. Thickened mitral valve leaflets with normal excursion. Mild mitral annulus and aortic root calcification. Pulmonic valve not visualized. Normal tricuspid valve structure. IVC at normal size with physiologic collapse. Assessment/Plan 1. Abnormal electrocardiogram with primary T-wave abnormality.1st and 3rd trop were negative and second one 0.7. Due to renal failure and sepsis.Echocardiogram Nl EF. No chest pain or SOB. 2. Metabolic acidosis with carbon dioxide of only 7.Due to renal failure and sepsis 3. BNP of more than 5000. Due to renal failure and volume overload. 4. Renal failure. S/P Tray catheter and HD per Dr. Blakely 5. Hypernatremia. On D5W 6. Altered mental status. Head CT showed no acute intracranial bleed, mass effect, or edema. MRI brain showed Age-related volume loss and Negative for acute intracranial bleed, infarct, or mass effect 7. Hematemesis. S/P EGD by Dr Kitchen. S/P blood transfusion. 8. Dysphagia. Passed swallow eval LINDSEY RN and at bedside Subjective Subjective No chest pain or SOB.S/P blood transfusion. at bedside. Alert in NAD. Objective Last 24 Hour Vital Signs Date Time Temp Pulse Resp B/P (MAP) Pulse Ox O2 Delivery O2 Flow Rate FiO2 08/28/17 08:00 98.0 73 18 126/68 96 08/28/17 04:00 97.6 70 18 124/64 95 08/28/17 00:00 97.7 65 18 130/71 95 08/27/17 20:00 97.4 72 18 121/69 95 08/27/17 15:49 97.4 84 21 114/65 96 Room Air Laboratory Tests Test 08/28/17 06:00 White Blood Count 5.2 K/UL (4.8-10.8) Red Blood Count 2.54 M/UL (4.70-6.10) L Hemoglobin 7.8 G/DL (14.2-18.0) L Hematocrit 24.4 % (42.0-52.0) L Mean Corpuscular Volume 96 FL (80-99) Mean Corpuscular Hemoglobin 30.8 PG (27.0-31.0) Mean Corpuscular Hemoglobin Concent 32.1 G/DL (32.0-36.0) Red Cell Distribution Width 18.2 % (11.6-14.8) H Platelet Count 94 K/UL (150-450) L Mean Platelet Volume 5.4 FL (6.5-10.1) L Neutrophils (%) (Auto) % (45.0-75.0) Lymphocytes (%) (Auto) % (20.0-45.0) Monocytes (%) (Auto) % (1.0-10.0) Eosinophils (%) (Auto) % (0.0-3.0) Basophils (%) (Auto) % (0.0-2.0) Differential Total Cells Counted 100 Neutrophils % (Manual) 79 % (45-75) H Lymphocytes % (Manual) 11 % (20-45) L Monocytes % (Manual) 7 % (1-10) Eosinophils % (Manual) 3 % (0-3) Basophils % (Manual) 0 % (0-2) Band Neutrophils 0 % (0-8) Platelet Estimate Decreased L Platelet Morphology Normal Hypochromasia 1+ Anisocytosis 1+ Sodium Level 133 MMOL/L (136-145) L Potassium Level 3.6 MMOL/L (3.5-5.1) Chloride Level 100 MMOL/L (98-107) Carbon Dioxide Level 28 MMOL/L (21-32) Anion Gap 5 mmol/L (5-15) Blood Urea Nitrogen 28 mg/dL (7-18) H Creatinine 4.1 MG/DL (0.55-1.30) H Estimat Glomerular Filtration Rate 15.0 mL/min (>60) Glucose Level 96 MG/DL (74-106) Calcium Level 7.4 MG/DL (8.5-10.1) L Phosphorus Level 3.5 MG/DL (2.5-4.9) Magnesium Level 2.2 MG/DL (1.8-2.4) Total Bilirubin 0.3 MG/DL (0.2-1.0) Aspartate Amino Transf (AST/SGOT) 56 U/L (15-37) H Alanine Aminotransferase (ALT/SGPT) 36 U/L (12-78) Alkaline Phosphatase 90 U/L (46-116) Total Protein 4.9 G/DL (6.4-8.2) L Albumin 1.1 G/DL (3.4-5.0) L Globulin 3.8 g/dL Albumin/Globulin Ratio 0.3 (1.0-2.7) L Objective HEAD AND NECK: No JVD. Right face scar LUNGS: Clear. CARDIOVASCULAR: Regular. S1 and S2 with no gallop, his chest has a right- sided port. ABDOMEN: Soft. EXTREMITIES: No edema. NICOLÁS PARKINSON Aug 28, 2017 12:12
--- NOTE | 2017-08-28 12:18 | Nephrology Progress Note ---
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 2D Echo- Left ventricular ejection fraction estimated to be grossly normal. Avoid nephrotoxics- Subjective ROS Limited/Unobtainable: No Constitutional: Reports: malaise, weakness Objective Objective Last 24 Hour Vital Signs Date Time Temp Pulse Resp B/P (MAP) Pulse Ox O2 Delivery O2 Flow Rate FiO2 08/28/17 08:00 98.0 73 18 126/68 96 08/28/17 04:00 97.6 70 18 124/64 95 08/28/17 00:00 97.7 65 18 130/71 95 08/27/17 20:00 97.4 72 18 121/69 95 08/27/17 15:49 97.4 84 21 114/65 96 Room Air Laboratory Tests 08/28/17 06:00: White Blood Count 5.2, Red Blood Count 2.54L, Hemoglobin 7.8L, Hematocrit 24.4L , Mean Corpuscular Volume 96, Mean Corpuscular Hemoglobin 30.8, Mean Corpuscular Hemoglobin Concent 32.1, Red Cell Distribution Width 18.2H, Platelet Count 94L, Mean Platelet Volume 5.4L, Neutrophils (%) (Auto) , Lymphocytes (%) (Auto) , Monocytes (%) (Auto) , Eosinophils (%) (Auto) , Basophils (%) (Auto) , Differential Total Cells Counted 100, Neutrophils % ( Manual) 79H, Lymphocytes % (Manual) 11L, Monocytes % (Manual) 7, Eosinophils % ( Manual) 3, Basophils % (Manual) 0, Band Neutrophils 0, Platelet Estimate DecreasedL, Platelet Morphology Normal, Hypochromasia 1+, Anisocytosis 1+, Sodium Level 133L, Potassium Level 3.6, Chloride Level 100, Carbon Dioxide Level 28, Anion Gap 5, Blood Urea Nitrogen 28H, Creatinine 4.1H, Estimat Glomerular Filtration Rate 15.0, Glucose Level 96, Calcium Level 7.4L, Phosphorus Level 3.5, Magnesium Level 2.2, Total Bilirubin 0.3, Aspartate Amino Transf (AST/SGOT) 56H, Alanine Aminotransferase (ALT/SGPT) 36, Alkaline Phosphatase 90, Total Protein 4.9L, Albumin 1.1L, Globulin 3.8, Albumin/ Globulin Ratio 0.3L Height (Feet): 5 Height (Inches): 7.00 Weight (Pounds): 120 General Appearance: no apparent distress, lethargic, confused Cardiovascular: regular rhythm Respiratory/Chest: decreased breath sounds Abdomen: soft Objective PE not changed RYAN MCCLOUD Aug 28, 2017 12:18
--- NOTE | 2017-08-28 14:09 | General Progress Note ---
Assessment/Plan Assessment/Plan ASSESSMENT AND RECOMMENDATIONS: 1. Upper GI bleed, s/p egd. GI service following. NGTF. Pending swallow eval. Monitor H/H and platelet count. 2. Facial lymphoma, status post chemotherapy with radiation. Currently cancer is in remission. Repeat CT of the head no evidence of malignancy. 3. Anemia secondary to chronic disease. Anemia workup has been reviewed. --> transfuse if hgb below 7 --> to receive one unit prbc 4. Anemia secondary to kidney disease. --> PATTI has improved, likely due to ATN 5. Altered mental status. Neurology service is evaluating the patient. 6. Necrotizing fasciitis, status post wound VAC and surgery, completed 2 weeks ago. --> continue wound care 7. Thrombocytopenia post surgical as well as due to underlying Hep C--> monitor closely. Improving 8. Hepatitis C Subjective Allergies: Coded Allergies: No Known Allergies (Unverified , 08/17/17) All Systems: reviewed and negative except above Subjective No events overnight Objective Last 24 Hour Vital Signs Date Time Temp Pulse Resp B/P (MAP) Pulse Ox O2 Delivery O2 Flow Rate FiO2 08/28/17 12:00 97.0 74 18 122/67 08/28/17 08:00 98.0 73 18 126/68 96 08/28/17 04:00 97.6 70 18 124/64 95 08/28/17 00:00 97.7 65 18 130/71 95 08/27/17 20:00 97.4 72 18 121/69 95 08/27/17 15:49 97.4 84 21 114/65 96 Room Air Intake and Output 08/28/17 08/29/17 19:00 07:00 Intake Total 350 ml Balance 350 ml IV Total 350 ml Laboratory Tests 08/28/17 06:00: White Blood Count 5.2, Red Blood Count 2.54L, Hemoglobin 7.8L, Hematocrit 24.4L , Mean Corpuscular Volume 96, Mean Corpuscular Hemoglobin 30.8, Mean Corpuscular Hemoglobin Concent 32.1, Red Cell Distribution Width 18.2H, Platelet Count 94L, Mean Platelet Volume 5.4L, Neutrophils (%) (Auto) , Lymphocytes (%) (Auto) , Monocytes (%) (Auto) , Eosinophils (%) (Auto) , Basophils (%) (Auto) , Differential Total Cells Counted 100, Neutrophils % ( Manual) 79H, Lymphocytes % (Manual) 11L, Monocytes % (Manual) 7, Eosinophils % ( Manual) 3, Basophils % (Manual) 0, Band Neutrophils 0, Platelet Estimate DecreasedL, Platelet Morphology Normal, Hypochromasia 1+, Anisocytosis 1+, Sodium Level 133L, Potassium Level 3.6, Chloride Level 100, Carbon Dioxide Level 28, Anion Gap 5, Blood Urea Nitrogen 28H, Creatinine 4.1H, Estimat Glomerular Filtration Rate 15.0, Glucose Level 96, Calcium Level 7.4L, Phosphorus Level 3.5, Magnesium Level 2.2, Total Bilirubin 0.3, Aspartate Amino Transf (AST/SGOT) 56H, Alanine Aminotransferase (ALT/SGPT) 36, Alkaline Phosphatase 90, Total Protein 4.9L, Albumin 1.1L, Globulin 3.8, Albumin/ Globulin Ratio 0.3L, Hepatitis B Surface Antigen [Pending], Hepatitis B Surface Antibody, Quant [Pending], Hepatitis C Antibody [Pending] Height (Feet): 5 Height (Inches): 7.00 Weight (Pounds): 120 General Appearance: no apparent distress EENT: normal ENT inspection Neck: normal alignment Cardiovascular: normal peripheral pulses Abdomen: non tender Neurologic: speeder hand II-XII grossly normal Nader Brumfield Aug 28, 2017 14:09
--- NOTE | 2017-08-28 14:32 | General Progress Note ---
Assessment/Plan Problem List: (1) Lymphoma ICD Codes: C85.90 - Non-Hodgkin lymphoma, unspecified, unspecified site SNOMED: 702218833 (2) Anemia ICD Codes: D64.9 - Anemia, unspecified SNOMED: 501705870 (3) Hypothyroid ICD Codes: E03.9 - Hypothyroidism, unspecified SNOMED: 69034514 (4) Malnutrition ICD Codes: E46 - Unspecified protein-calorie malnutrition SNOMED: 74147651 (5) Altered level of consciousness ICD Codes: R40.4 - Transient alteration of awareness SNOMED: 8789582 (6) Renal failure ICD Codes: N19 - Unspecified kidney failure SNOMED: 55737703 (7) Cellulitis ICD Codes: L03.90 - Cellulitis, unspecified SNOMED: 008114198 Status: stable, progressing Assessment/Plan ng ot pt diet cbc bmp am, gi eval Subjective Constitutional: Reports: weakness Allergies: Coded Allergies: No Known Allergies (Unverified , 08/17/17) All Systems: reviewed and negative except above Subjective lethargic not eating as yet Objective Last 24 Hour Vital Signs Date Time Temp Pulse Resp B/P (MAP) Pulse Ox O2 Delivery O2 Flow Rate FiO2 08/28/17 12:00 97.0 74 18 122/67 08/28/17 08:00 98.0 73 18 126/68 96 08/28/17 04:00 97.6 70 18 124/64 95 08/28/17 00:00 97.7 65 18 130/71 95 08/27/17 20:00 97.4 72 18 121/69 95 08/27/17 15:49 97.4 84 21 114/65 96 Room Air Intake and Output 08/28/17 08/29/17 19:00 07:00 Intake Total 350 ml Balance 350 ml IV Total 350 ml Laboratory Tests 08/28/17 06:00: White Blood Count 5.2, Red Blood Count 2.54L, Hemoglobin 7.8L, Hematocrit 24.4L , Mean Corpuscular Volume 96, Mean Corpuscular Hemoglobin 30.8, Mean Corpuscular Hemoglobin Concent 32.1, Red Cell Distribution Width 18.2H, Platelet Count 94L, Mean Platelet Volume 5.4L, Neutrophils (%) (Auto) , Lymphocytes (%) (Auto) , Monocytes (%) (Auto) , Eosinophils (%) (Auto) , Basophils (%) (Auto) , Differential Total Cells Counted 100, Neutrophils % ( Manual) 79H, Lymphocytes % (Manual) 11L, Monocytes % (Manual) 7, Eosinophils % ( Manual) 3, Basophils % (Manual) 0, Band Neutrophils 0, Platelet Estimate DecreasedL, Platelet Morphology Normal, Hypochromasia 1+, Anisocytosis 1+, Sodium Level 133L, Potassium Level 3.6, Chloride Level 100, Carbon Dioxide Level 28, Anion Gap 5, Blood Urea Nitrogen 28H, Creatinine 4.1H, Estimat Glomerular Filtration Rate 15.0, Glucose Level 96, Calcium Level 7.4L, Phosphorus Level 3.5, Magnesium Level 2.2, Total Bilirubin 0.3, Aspartate Amino Transf (AST/SGOT) 56H, Alanine Aminotransferase (ALT/SGPT) 36, Alkaline Phosphatase 90, Total Protein 4.9L, Albumin 1.1L, Globulin 3.8, Albumin/ Globulin Ratio 0.3L, Hepatitis B Surface Antigen [Pending], Hepatitis B Surface Antibody, Quant [Pending], Hepatitis C Antibody [Pending] Height (Feet): 5 Height (Inches): 7.00 Weight (Pounds): 120 General Appearance: lethargic, confused EENT: normal ENT inspection Neck: normal alignment Cardiovascular: normal peripheral pulses, normal rate, regular rhythm Respiratory/Chest: chest wall non-tender, lungs clear, normal breath sounds Abdomen: normal bowel sounds, non tender, soft Extremities: normal inspection Edema: no edema noted Arm (L), no edema noted Arm (R), no edema noted Leg (L), no edema noted Leg (R), no edema noted Pedal (L), no edema noted Pedal (R), no edema noted Generalized Neurologic: motor weakness Skin: normal pigmentation, warm/dry ROBERT BANERJEE Aug 28, 2017 14:32
[2017-08-28 16:00] VITALS: BP 128/70
--- NOTE | 2017-08-28 18:08 | Pulmonology Progress Note ---
Assessment/Plan Problems: (1) UGI bleed (2) Anemia (3) Malnutrition (4) Acute renal failure (ARF) Assessment/Plan no new complains looks comfortable diet started advance diet as tolerated PT/ot nutrition evaluation. med/surg check labs in am all labs reviewed. Subjective ROS Limited/Unobtainable: Yes Constitutional: Reports: no symptoms HEENT: Repors: no symptoms Allergies: Coded Allergies: No Known Allergies (Unverified , 08/17/17) Objective Last 24 Hour Vital Signs Date Time Temp Pulse Resp B/P (MAP) Pulse Ox O2 Delivery O2 Flow Rate FiO2 08/28/17 16:00 98.0 77 18 128/70 08/28/17 12:00 97.0 74 18 122/67 08/28/17 08:00 98.0 73 18 126/68 96 08/28/17 04:00 97.6 70 18 124/64 95 08/28/17 00:00 97.7 65 18 130/71 95 08/27/17 20:00 97.4 72 18 121/69 95 Intake and Output 08/28/17 08/29/17 19:00 07:00 Intake Total 350 ml Balance 350 ml IV Total 350 ml Objective General Appearance: WD/WN HEENT: normocephalic, atraumatic Respiratory/Chest: chest wall non-tender, lungs clear Breasts: no masses Cardiovascular: normal peripheral pulses Abdomen: normal bowel sounds, soft, non tender Genitourinary: normal external genitalia Skin: no rash Laboratory Tests 08/28/17 06:00: White Blood Count 5.2, Red Blood Count 2.54L, Hemoglobin 7.8L, Hematocrit 24.4L , Mean Corpuscular Volume 96, Mean Corpuscular Hemoglobin 30.8, Mean Corpuscular Hemoglobin Concent 32.1, Red Cell Distribution Width 18.2H, Platelet Count 94L, Mean Platelet Volume 5.4L, Neutrophils (%) (Auto) , Lymphocytes (%) (Auto) , Monocytes (%) (Auto) , Eosinophils (%) (Auto) , Basophils (%) (Auto) , Differential Total Cells Counted 100, Neutrophils % ( Manual) 79H, Lymphocytes % (Manual) 11L, Monocytes % (Manual) 7, Eosinophils % ( Manual) 3, Basophils % (Manual) 0, Band Neutrophils 0, Platelet Estimate DecreasedL, Platelet Morphology Normal, Hypochromasia 1+, Anisocytosis 1+, Sodium Level 133L, Potassium Level 3.6, Chloride Level 100, Carbon Dioxide Level 28, Anion Gap 5, Blood Urea Nitrogen 28H, Creatinine 4.1H, Estimat Glomerular Filtration Rate 15.0, Glucose Level 96, Calcium Level 7.4L, Phosphorus Level 3.5, Magnesium Level 2.2, Total Bilirubin 0.3, Aspartate Amino Transf (AST/SGOT) 56H, Alanine Aminotransferase (ALT/SGPT) 36, Alkaline Phosphatase 90, Total Protein 4.9L, Albumin 1.1L, Globulin 3.8, Albumin/ Globulin Ratio 0.3L, Hepatitis B Surface Antigen [Pending], Hepatitis B Surface Antibody, Quant [Pending], Hepatitis C Antibody [Pending] Current Medications Medications (Trade) Dose Ordered Sig/Srini Route PRN Reason Start Time Stop Time Status Last Admin Dose Admin Acetaminophen (Tylenol) 650 mg Q4H PRN ORAL fever 08/23/17 18:10 09/16/17 18:09 Chlorhexidine Gluconate (Sandra-Hex 2%) 1 applic DAILY@2000 TOPIC 08/23/17 20:00 09/17/17 19:59 08/27/17 20:36 Clonidine HCl (Catapres) 0.1 mg Q4H PRN GT SBP > 160 08/23/17 18:00 09/16/17 21:59 Dextrose 1,000 ml @ 50 mls/hr Q20H IV 08/23/17 18:10 09/19/17 18:09 08/28/17 17:21 Dextrose (Dextrose 50%) STAT PRN IV Hypoglycemia 08/23/17 18:10 09/16/17 18:09 Levetiracetam 100 ml @ 400 mls/hr Q12HR IVPB 08/23/17 21:00 09/18/17 13:29 08/28/17 08:38 Levothyroxine Sodium (Synthroid) 75 mcg ACBREAKFAST GT 08/24/17 06:30 09/21/17 06:29 08/28/17 06:25 Morphine Sulfate (Morphine Sulfate) 2 mg Q4H PRN IVP For Pain 08/25/17 12:45 09/01/17 12:44 08/27/17 17:38 Ondansetron HCl (Zofran) 4 mg Q6H PRN IVP Nausea & Vomiting 08/23/17 18:10 09/16/17 18:09 08/25/17 18:10 Pantoprazole (Protonix) 40 mg EVERY 12 HOURS IVP 08/23/17 21:00 09/20/17 20:59 08/28/17 08:37 Polyethylene Glycol (Miralax) 17 gm HSPRN PRN GT Constipation 08/23/17 18:10 09/21/17 18:09 Sucralfate (Carafate) 1 gm FOUR TIMES A DAY ORAL 08/23/17 18:00 09/20/17 12:59 08/28/17 17:21 Zolpidem Tartrate (Ambien) 5 mg HSPRN PRN GT Insomnia 08/23/17 18:10 08/29/17 18:09 MAYRA BAKER Aug 28, 2017 18:08
[2017-08-28 20:00] VITALS: BP 133/71
[2017-08-28] MEDS: Dyna-Hex 2% Top Sol 2oz TOPIC SCH (21:23)
[2017-08-28] MEDS: Morphine Sulfate 2mg/ml Inj IVP PRN (21:23)
[2017-08-29] VITALS: BP 136/72
[2017-08-29 03:51] VITALS: BP 104/59
[2017-08-29] MEDS: Morphine Sulfate 2mg/ml Inj IVP PRN ×4 (05:53→21:24)
[2017-08-29 07:28] LABS: MEAN CORPUSCULAR HEMOGLOBIN 32.4 PG (27.0-31.0); MEAN CORPUSCULAR HGB CONC 33.3 G/DL (32.0-36.0); MEAN CORPUSCULAR VOLUME 97 FL (80-99); PLATELET COUNT 113 K/UL (150-450); RED BLOOD COUNT 2.31 M/UL (4.70-6.10); RED CELL DISTRIBUTION WIDTH 17.9 % (11.6-14.8)
[2017-08-29 07:40] LABS: ANION GAP 5 mmol/L (5-15); CALCIUM 7.2 MG/DL (8.5-10.1); CARBON DIOXIDE 27 MMOL/L (21-32); CHLORIDE 103 MMOL/L (98-107); GLOMERULAR FILTRATION RATE 15.4 mL/min (>60); POTASSIUM 3.3 MMOL/L (3.5-5.1); SODIUM 135 MMOL/L (136-145)
[2017-08-29 08:00] VITALS: BP 135/75
[2017-08-29] MEDS: Sucralfate 1gm tab ORAL SCH ×4 (08:36→21:24)
[2017-08-29] MEDS: Pantoprazole Inj IVP SCH ×2 (08:36→21:24)
[2017-08-29 08:46] LABS: ANISOCYTOSIS 2+; BAND NEUTROPHILS % (MANUAL) 0 % (0-8); BASOPHILS % (MANUAL) 0 % (0-2); EOSINOPHILS % (MANUAL) 0 % (0-3); HYPOCHROMASIA 3+; LYMPHOCYTES % (MANUAL) 9 % (20-45); NEUTROPHILS % (MANUAL) 86 % (45-75); PLATELET ESTIMATE DECREASED; PLATELET MORPHOLOGY NORMAL; SPHEROCYTES 2+; TOTAL CELLS COUNTED 100
[2017-08-29] MEDS: levETIRAcetam 1,000mg/NS100ml 100 ML IVPB SCH ×2 (09:17→21:23)
--- NOTE | 2017-08-29 10:21 | Infectious Diseases Prog Note ---
Assessment/Plan Assessment/Plan A: Recent necrotizing fascitis of R hip ? Mastoiditis Fungal UTI treated Acute renal failure CKD History of facial lymphoma Anemia VRE colonization Encephalopathy Hepatitis C Cellular immune deficiency, low CD4 GI bleeding, source esophagus Sinusitis P: observe off antibiotic Subjective ROS Limited/Unobtainable: No HEENT: Reports: no symptoms Respiratory: Reports: no symptoms Cardiovascular: Reports: no symptoms Gastrointestinal/Abdominal: Reports: no symptoms Allergies: Coded Allergies: No Known Allergies (Unverified , 08/17/17) Objective Vital Signs Last 24 Hour Vital Signs Date Time Temp Pulse Resp B/P (MAP) Pulse Ox O2 Delivery O2 Flow Rate FiO2 08/29/17 08:00 96.4 67 18 135/75 96 08/29/17 03:51 97.0 65 18 104/59 96 08/29/17 00:00 97.9 68 18 136/72 96 08/28/17 20:00 97.7 67 18 133/71 94 08/28/17 16:00 98.0 77 18 128/70 08/28/17 12:00 97.0 74 18 122/67 Height (Feet): 5 Height (Inches): 7.00 Weight (Pounds): 120 General Appearance: no acute distress HEENT: mucous membranes moist Respiratory/Chest: lungs clear Cardiovascular: normal rate Abdomen: soft, non tender Extremities: no edema Neurologic/Psychiatric: alert, responsive Laboratory Tests Test 08/29/17 06:00 White Blood Count 5.0 K/UL (4.8-10.8) Red Blood Count 2.31 M/UL (4.70-6.10) L Hemoglobin 7.5 G/DL (14.2-18.0) L Hematocrit 22.5 % (42.0-52.0) L Mean Corpuscular Volume 97 FL (80-99) Mean Corpuscular Hemoglobin 32.4 PG (27.0-31.0) H Mean Corpuscular Hemoglobin Concent 33.3 G/DL (32.0-36.0) Red Cell Distribution Width 17.9 % (11.6-14.8) H Platelet Count 113 K/UL (150-450) L Mean Platelet Volume 5.0 FL (6.5-10.1) L Neutrophils (%) (Auto) % (45.0-75.0) Lymphocytes (%) (Auto) % (20.0-45.0) Monocytes (%) (Auto) % (1.0-10.0) Eosinophils (%) (Auto) % (0.0-3.0) Basophils (%) (Auto) % (0.0-2.0) Differential Total Cells Counted 100 Neutrophils % (Manual) 86 % (45-75) H Lymphocytes % (Manual) 9 % (20-45) L Monocytes % (Manual) 5 % (1-10) Eosinophils % (Manual) 0 % (0-3) Basophils % (Manual) 0 % (0-2) Band Neutrophils 0 % (0-8) Platelet Estimate Decreased L Platelet Morphology Normal Hypochromasia 3+ Anisocytosis 2+ Spherocytes 2+ Sodium Level 135 MMOL/L (136-145) L Potassium Level 3.3 MMOL/L (3.5-5.1) L Chloride Level 103 MMOL/L (98-107) Carbon Dioxide Level 27 MMOL/L (21-32) Anion Gap 5 mmol/L (5-15) Blood Urea Nitrogen 27 mg/dL (7-18) H Creatinine 4.0 MG/DL (0.55-1.30) H Estimat Glomerular Filtration Rate 15.4 mL/min (>60) Glucose Level 89 MG/DL (74-106) Calcium Level 7.2 MG/DL (8.5-10.1) L Current Medications Medications (Trade) Dose Ordered Sig/Srini Route PRN Reason Start Time Stop Time Status Last Admin Dose Admin Acetaminophen (Tylenol) 650 mg Q4H PRN ORAL fever 08/23/17 18:10 09/16/17 18:09 Chlorhexidine Gluconate (Sandra-Hex 2%) 1 applic DAILY@2000 TOPIC 08/23/17 20:00 09/17/17 19:59 08/28/17 21:23 Clonidine HCl (Catapres) 0.1 mg Q4H PRN GT SBP > 160 08/23/17 18:00 09/16/17 21:59 Dextrose 1,000 ml @ 50 mls/hr Q20H IV 08/23/17 18:10 09/19/17 18:09 08/28/17 17:21 Dextrose (Dextrose 50%) STAT PRN IV Hypoglycemia 08/23/17 18:10 09/16/17 18:09 Levetiracetam 100 ml @ 400 mls/hr Q12HR IVPB 08/23/17 21:00 09/18/17 13:29 08/29/17 09:17 Levothyroxine Sodium (Synthroid) 75 mcg ACBREAKFAST GT 08/24/17 06:30 09/21/17 06:29 08/29/17 05:52 Morphine Sulfate (Morphine Sulfate) 2 mg Q4H PRN IVP For Pain 08/25/17 12:45 09/01/17 12:44 08/29/17 05:53 Ondansetron HCl (Zofran) 4 mg Q6H PRN IVP Nausea & Vomiting 08/23/17 18:10 09/16/17 18:09 08/25/17 18:10 Pantoprazole (Protonix) 40 mg EVERY 12 HOURS IVP 08/23/17 21:00 09/20/17 20:59 08/29/17 08:36 Polyethylene Glycol (Miralax) 17 gm HSPRN PRN GT Constipation 08/23/17 18:10 09/21/17 18:09 Sucralfate (Carafate) 1 gm FOUR TIMES A DAY ORAL 08/23/17 18:00 09/20/17 12:59 08/29/17 08:36 Zolpidem Tartrate (Ambien) 5 mg HSPRN PRN GT Insomnia 08/23/17 18:10 08/29/17 18:09 TOYA ENGLISH Aug 29, 2017 10:21
--- NOTE | 2017-08-29 10:29 | GI Progress Note ---
Assessment/Plan Problems: (1) Lymphoma ICD Codes: C85.90 - Non-Hodgkin lymphoma, unspecified, unspecified site SNOMED: 486185576 (2) Malnutrition ICD Codes: E46 - Unspecified protein-calorie malnutrition SNOMED: 63434551 (3) Anemia ICD Codes: D64.9 - Anemia, unspecified SNOMED: 897646687 (4) Anemia due to blood loss ICD Codes: D50.0 - Iron deficiency anemia secondary to blood loss (chronic) SNOMED: 197361384 (5) Dehydration ICD Codes: E86.0 - Dehydration SNOMED: 65102580 (6) UGI bleed ICD Codes: K92.2 - Gastrointestinal hemorrhage, unspecified SNOMED: 97502397 Status: stable, unchanged Status Narrative Discussed with Dr. Kitchen. Assessment/Plan SUMMARY FINDINGS: 1. Severe friable oozing blood from distal esophagus, most probably from chemo. 2. Gastritis, status post biopsy. Follow up biopsy results >> unremarkable, negative for H. Pylori Hep C positive RECOMMENDATIONS: PEG scheduled for tomorrow >> family has agreed. - diet now, NPO @ MN. - hold all blood thinners tonight. push PO ppi BID + Carafate monitor H&H, prn transfusion electrolyte correction abx fu OT eval fu labs Subjective Subjective limited Objective Last 24 Hour Vital Signs Date Time Temp Pulse Resp B/P (MAP) Pulse Ox O2 Delivery O2 Flow Rate FiO2 08/29/17 08:00 96.4 67 18 135/75 96 08/29/17 03:51 97.0 65 18 104/59 96 08/29/17 00:00 97.9 68 18 136/72 96 08/28/17 20:00 97.7 67 18 133/71 94 08/28/17 16:00 98.0 77 18 128/70 08/28/17 12:00 97.0 74 18 122/67 Laboratory Tests Test 08/29/17 06:00 White Blood Count 5.0 K/UL (4.8-10.8) Red Blood Count 2.31 M/UL (4.70-6.10) L Hemoglobin 7.5 G/DL (14.2-18.0) L Hematocrit 22.5 % (42.0-52.0) L Mean Corpuscular Volume 97 FL (80-99) Mean Corpuscular Hemoglobin 32.4 PG (27.0-31.0) H Mean Corpuscular Hemoglobin Concent 33.3 G/DL (32.0-36.0) Red Cell Distribution Width 17.9 % (11.6-14.8) H Platelet Count 113 K/UL (150-450) L Mean Platelet Volume 5.0 FL (6.5-10.1) L Neutrophils (%) (Auto) % (45.0-75.0) Lymphocytes (%) (Auto) % (20.0-45.0) Monocytes (%) (Auto) % (1.0-10.0) Eosinophils (%) (Auto) % (0.0-3.0) Basophils (%) (Auto) % (0.0-2.0) Differential Total Cells Counted 100 Neutrophils % (Manual) 86 % (45-75) H Lymphocytes % (Manual) 9 % (20-45) L Monocytes % (Manual) 5 % (1-10) Eosinophils % (Manual) 0 % (0-3) Basophils % (Manual) 0 % (0-2) Band Neutrophils 0 % (0-8) Platelet Estimate Decreased L Platelet Morphology Normal Hypochromasia 3+ Anisocytosis 2+ Spherocytes 2+ Sodium Level 135 MMOL/L (136-145) L Potassium Level 3.3 MMOL/L (3.5-5.1) L Chloride Level 103 MMOL/L (98-107) Carbon Dioxide Level 27 MMOL/L (21-32) Anion Gap 5 mmol/L (5-15) Blood Urea Nitrogen 27 mg/dL (7-18) H Creatinine 4.0 MG/DL (0.55-1.30) H Estimat Glomerular Filtration Rate 15.4 mL/min (>60) Glucose Level 89 MG/DL (74-106) Calcium Level 7.2 MG/DL (8.5-10.1) L Height (Feet): 5 Height (Inches): 7.00 Weight (Pounds): 120 General Appearance: WD/WN, no apparent distress, alert, thin Cardiovascular: normal rate Respiratory/Chest: normal breath sounds, no respiratory distress Abdominal Exam: normal bowel sounds, non tender, soft Extremities: non-tender Lou Jarquin N.PMarla Aug 29, 2017 10:29
--- NOTE | 2017-08-29 11:02 | Cardiac Electrophysiology PN ---
Assessment/Plan Status Narrative Normal left ventricular chamber size, systolic function and wall motion to extent visualized. Left ventricular ejection fraction estimated to be grossly normal. No evidence of left ventricular hypertrophy. No evidence of pericardial effusion. All other cardiac chamber sizes are within normal limits. Focal aortic valve sclerosis with adequate cusp excursion. Thickened mitral valve leaflets with normal excursion. Mild mitral annulus and aortic root calcification. Pulmonic valve not visualized. Normal tricuspid valve structure. IVC at normal size with physiologic collapse. Assessment/Plan 1. Abnormal electrocardiogram with primary T-wave abnormality.1st and 3rd trop were negative and second one 0.7. Due to renal failure and sepsis.Echocardiogram Nl EF. No chest pain or SOB. 2. Metabolic acidosis with carbon dioxide of only 7.Due to renal failure and sepsis 3. BNP of more than 5000. Due to renal failure and volume overload. 4. Renal failure. S/P Tray catheter and HD per Dr. Blakely 5. Hypernatremia. On D5W 6. Altered mental status. Head CT showed no acute intracranial bleed, mass effect, or edema. MRI brain showed Age-related volume loss and Negative for acute intracranial bleed, infarct, or mass effect 7. Hematemesis. S/P EGD by Dr Kitchen. S/P blood transfusion. 8. Dysphagia. Passed swallow eval but doesn't eat as its painful. PEG tomorrow LINDSEY RN at bedside Subjective Subjective No chest pain or SOB. Alert in NAD. Still not eating much Objective Last 24 Hour Vital Signs Date Time Temp Pulse Resp B/P (MAP) Pulse Ox O2 Delivery O2 Flow Rate FiO2 08/29/17 08:00 96.4 67 18 135/75 96 08/29/17 03:51 97.0 65 18 104/59 96 08/29/17 00:00 97.9 68 18 136/72 96 08/28/17 20:00 97.7 67 18 133/71 94 08/28/17 16:00 98.0 77 18 128/70 08/28/17 12:00 97.0 74 18 122/67 Laboratory Tests Test 08/29/17 06:00 White Blood Count 5.0 K/UL (4.8-10.8) Red Blood Count 2.31 M/UL (4.70-6.10) L Hemoglobin 7.5 G/DL (14.2-18.0) L Hematocrit 22.5 % (42.0-52.0) L Mean Corpuscular Volume 97 FL (80-99) Mean Corpuscular Hemoglobin 32.4 PG (27.0-31.0) H Mean Corpuscular Hemoglobin Concent 33.3 G/DL (32.0-36.0) Red Cell Distribution Width 17.9 % (11.6-14.8) H Platelet Count 113 K/UL (150-450) L Mean Platelet Volume 5.0 FL (6.5-10.1) L Neutrophils (%) (Auto) % (45.0-75.0) Lymphocytes (%) (Auto) % (20.0-45.0) Monocytes (%) (Auto) % (1.0-10.0) Eosinophils (%) (Auto) % (0.0-3.0) Basophils (%) (Auto) % (0.0-2.0) Differential Total Cells Counted 100 Neutrophils % (Manual) 86 % (45-75) H Lymphocytes % (Manual) 9 % (20-45) L Monocytes % (Manual) 5 % (1-10) Eosinophils % (Manual) 0 % (0-3) Basophils % (Manual) 0 % (0-2) Band Neutrophils 0 % (0-8) Platelet Estimate Decreased L Platelet Morphology Normal Hypochromasia 3+ Anisocytosis 2+ Spherocytes 2+ Sodium Level 135 MMOL/L (136-145) L Potassium Level 3.3 MMOL/L (3.5-5.1) L Chloride Level 103 MMOL/L (98-107) Carbon Dioxide Level 27 MMOL/L (21-32) Anion Gap 5 mmol/L (5-15) Blood Urea Nitrogen 27 mg/dL (7-18) H Creatinine 4.0 MG/DL (0.55-1.30) H Estimat Glomerular Filtration Rate 15.4 mL/min (>60) Glucose Level 89 MG/DL (74-106) Calcium Level 7.2 MG/DL (8.5-10.1) L Objective HEAD AND NECK: No JVD. Right face scar LUNGS: Clear. CARDIOVASCULAR: Regular. S1 and S2 with no gallop, his chest has a right- sided port. ABDOMEN: Soft. EXTREMITIES: No edema. NICOLÁS PARKINSON Aug 29, 2017 11:02
[2017-08-29 12:00] VITALS: BP 135/77
--- NOTE | 2017-08-29 14:15 | Nephrology Progress Note ---
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 2D Echo- Left ventricular ejection fraction estimated to be grossly normal. Avoid nephrotoxics- Subjective ROS Limited/Unobtainable: No Constitutional: Reports: malaise Objective Objective Last 24 Hour Vital Signs Date Time Temp Pulse Resp B/P (MAP) Pulse Ox O2 Delivery O2 Flow Rate FiO2 08/29/17 12:00 97.2 59 18 135/77 97 08/29/17 08:00 96.4 67 18 135/75 96 08/29/17 03:51 97.0 65 18 104/59 96 08/29/17 00:00 97.9 68 18 136/72 96 08/28/17 20:00 97.7 67 18 133/71 94 08/28/17 16:00 98.0 77 18 128/70 Intake and Output 08/29/17 08/30/17 19:00 07:00 Intake Total 600 ml Balance 600 ml IV Total 600 ml Laboratory Tests 08/29/17 06:00: White Blood Count 5.0, Red Blood Count 2.31L, Hemoglobin 7.5L, Hematocrit 22.5L , Mean Corpuscular Volume 97, Mean Corpuscular Hemoglobin 32.4H, Mean Corpuscular Hemoglobin Concent 33.3, Red Cell Distribution Width 17.9H, Platelet Count 113L, Mean Platelet Volume 5.0L, Neutrophils (%) (Auto) , Lymphocytes (%) (Auto) , Monocytes (%) (Auto) , Eosinophils (%) (Auto) , Basophils (%) (Auto) , Differential Total Cells Counted 100, Neutrophils % ( Manual) 86H, Lymphocytes % (Manual) 9L, Monocytes % (Manual) 5, Eosinophils % ( Manual) 0, Basophils % (Manual) 0, Band Neutrophils 0, Platelet Estimate DecreasedL, Platelet Morphology Normal, Hypochromasia 3+, Anisocytosis 2+, Spherocytes 2+, Sodium Level 135L, Potassium Level 3.3L, Chloride Level 103, Carbon Dioxide Level 27, Anion Gap 5, Blood Urea Nitrogen 27H, Creatinine 4.0H, Estimat Glomerular Filtration Rate 15.4, Glucose Level 89, Calcium Level 7.2L Height (Feet): 5 Height (Inches): 7.00 Weight (Pounds): 120 General Appearance: no apparent distress Objective PE not changed RYAN MCCLOUD Aug 29, 2017 14:15
--- NOTE | 2017-08-29 15:15 | General Progress Note ---
Assessment/Plan Problem List: (1) Lymphoma ICD Codes: C85.90 - Non-Hodgkin lymphoma, unspecified, unspecified site SNOMED: 902817892 (2) Anemia ICD Codes: D64.9 - Anemia, unspecified SNOMED: 847912366 (3) Hypothyroid ICD Codes: E03.9 - Hypothyroidism, unspecified SNOMED: 67889828 (4) Malnutrition ICD Codes: E46 - Unspecified protein-calorie malnutrition SNOMED: 42516930 (5) Altered level of consciousness ICD Codes: R40.4 - Transient alteration of awareness SNOMED: 1506469 (6) Renal failure ICD Codes: N19 - Unspecified kidney failure SNOMED: 33953968 (7) Cellulitis ICD Codes: L03.90 - Cellulitis, unspecified SNOMED: 088230239 Status: unchanged Assessment/Plan ng ot pt diet cbc bmp am, gi eval dc plan w hh Subjective Constitutional: Reports: weakness Allergies: Coded Allergies: No Known Allergies (Unverified , 08/17/17) All Systems: reviewed and negative except above Subjective lethargic not eating much Objective Last 24 Hour Vital Signs Date Time Temp Pulse Resp B/P (MAP) Pulse Ox O2 Delivery O2 Flow Rate FiO2 08/29/17 12:00 97.2 59 18 135/77 97 08/29/17 08:00 96.4 67 18 135/75 96 08/29/17 03:51 97.0 65 18 104/59 96 08/29/17 00:00 97.9 68 18 136/72 96 08/28/17 20:00 97.7 67 18 133/71 94 08/28/17 16:00 98.0 77 18 128/70 Intake and Output 08/29/17 08/30/17 19:00 07:00 Intake Total 650 ml Balance 650 ml IV Total 650 ml Laboratory Tests 08/29/17 06:00: White Blood Count 5.0, Red Blood Count 2.31L, Hemoglobin 7.5L, Hematocrit 22.5L , Mean Corpuscular Volume 97, Mean Corpuscular Hemoglobin 32.4H, Mean Corpuscular Hemoglobin Concent 33.3, Red Cell Distribution Width 17.9H, Platelet Count 113L, Mean Platelet Volume 5.0L, Neutrophils (%) (Auto) , Lymphocytes (%) (Auto) , Monocytes (%) (Auto) , Eosinophils (%) (Auto) , Basophils (%) (Auto) , Differential Total Cells Counted 100, Neutrophils % ( Manual) 86H, Lymphocytes % (Manual) 9L, Monocytes % (Manual) 5, Eosinophils % ( Manual) 0, Basophils % (Manual) 0, Band Neutrophils 0, Platelet Estimate DecreasedL, Platelet Morphology Normal, Hypochromasia 3+, Anisocytosis 2+, Spherocytes 2+, Sodium Level 135L, Potassium Level 3.3L, Chloride Level 103, Carbon Dioxide Level 27, Anion Gap 5, Blood Urea Nitrogen 27H, Creatinine 4.0H, Estimat Glomerular Filtration Rate 15.4, Glucose Level 89, Calcium Level 7.2L Height (Feet): 5 Height (Inches): 7.00 Weight (Pounds): 120 General Appearance: lethargic, confused EENT: normal ENT inspection Neck: normal alignment Cardiovascular: normal peripheral pulses, normal rate, regular rhythm Respiratory/Chest: chest wall non-tender, lungs clear, normal breath sounds Abdomen: normal bowel sounds, non tender, soft Extremities: normal inspection Edema: no edema noted Arm (L), no edema noted Arm (R), no edema noted Leg (L), no edema noted Leg (R), no edema noted Pedal (L), no edema noted Pedal (R), no edema noted Generalized Neurologic: motor weakness Skin: normal pigmentation, warm/dry ROBERT BANERJEE Aug 29, 2017 15:15
[2017-08-29 16:00] VITALS: BP 119/77
--- NOTE | 2017-08-29 17:05 | Operative Note - PDOC ---
Operative Note Operative Note Date of Operation/Procedure: Aug 29, 2017 Pre-op Diagnosis: right hip wound 25cm x 18cm exposed tissue Procedure: Wound VAC change for large right hip wound Operative Findings: consistent w/pre-op dx studies Surgeon: pranav HILL Additional Surgeons: n/a Anesthesiologist: n/a Anesthesia: other Specimen: none Complications: none Condition: stable Fluids: n/a Estimated Blood Loss: none Drains: wound vac Implant(s) used?: No Indications for Procedure 62M with complicated medical history (see consult note for details) has large right lateral hip wound. Patient had necrotizing soft tissue infection of his right hip prior requiring extensive debridement. Has had large wound since that has been cared for with wound VAC. Last change 3 days ago and due for change today which was done at bedside. patient awake and alert. consented to vac change. Description of Procedure Patient made comfortable at bedside. He was placed in left lateral decubitus position. prior wound vac sponge disconnected and after a few minutes prior dressings removed. wound evaluated and noted to be very clean with with good granulation tissue. wound is a large 25cm x 28cm right lateral hip wound that extends from right flank to right upper hip. no skin or subcutaneous fat present. wound down to muscle and fascia. wound cleaned and new black wound vac foam placed. vac suction resumed at 100mmHg without leak or complication. patient tolerated procedure well. plan for next change on Saturday Mauricio Mistry Aug 29, 2017 17:05
--- NOTE | 2017-08-29 17:07 | General Surgery Progress Note ---
General Surgery-Progress Note Subjective Procedure Performed Wound VAC change for large right hip wound Symptoms: improved Additional Comments doing well. VAC functional. no complaints. wants to go home Objective Last 24 Hour Vital Signs Date Time Temp Pulse Resp B/P (MAP) Pulse Ox O2 Delivery O2 Flow Rate FiO2 08/29/17 12:00 97.2 59 18 135/77 97 08/29/17 08:00 96.4 67 18 135/75 96 08/29/17 03:51 97.0 65 18 104/59 96 08/29/17 00:00 97.9 68 18 136/72 96 08/28/17 20:00 97.7 67 18 133/71 94 I&O Intake and Output 08/29/17 08/30/17 19:00 07:00 Intake Total 650 ml Balance 650 ml IV Total 650 ml Drains: wound vac Respiratory: clear Abdomen: soft, flat, non-tender Extremities: no tenderness Laboratory Tests Test 08/29/17 06:00 White Blood Count 5.0 K/UL (4.8-10.8) Red Blood Count 2.31 M/UL (4.70-6.10) L Hemoglobin 7.5 G/DL (14.2-18.0) L Hematocrit 22.5 % (42.0-52.0) L Mean Corpuscular Volume 97 FL (80-99) Mean Corpuscular Hemoglobin 32.4 PG (27.0-31.0) H Mean Corpuscular Hemoglobin Concent 33.3 G/DL (32.0-36.0) Red Cell Distribution Width 17.9 % (11.6-14.8) H Platelet Count 113 K/UL (150-450) L Mean Platelet Volume 5.0 FL (6.5-10.1) L Neutrophils (%) (Auto) % (45.0-75.0) Lymphocytes (%) (Auto) % (20.0-45.0) Monocytes (%) (Auto) % (1.0-10.0) Eosinophils (%) (Auto) % (0.0-3.0) Basophils (%) (Auto) % (0.0-2.0) Differential Total Cells Counted 100 Neutrophils % (Manual) 86 % (45-75) H Lymphocytes % (Manual) 9 % (20-45) L Monocytes % (Manual) 5 % (1-10) Eosinophils % (Manual) 0 % (0-3) Basophils % (Manual) 0 % (0-2) Band Neutrophils 0 % (0-8) Platelet Estimate Decreased L Platelet Morphology Normal Hypochromasia 3+ Anisocytosis 2+ Spherocytes 2+ Sodium Level 135 MMOL/L (136-145) L Potassium Level 3.3 MMOL/L (3.5-5.1) L Chloride Level 103 MMOL/L (98-107) Carbon Dioxide Level 27 MMOL/L (21-32) Anion Gap 5 mmol/L (5-15) Blood Urea Nitrogen 27 mg/dL (7-18) H Creatinine 4.0 MG/DL (0.55-1.30) H Estimat Glomerular Filtration Rate 15.4 mL/min (>60) Glucose Level 89 MG/DL (74-106) Calcium Level 7.2 MG/DL (8.5-10.1) L Plan Problems: (1) Wound, open, hip or thigh Assessment & Plan: 62M here for medical evaluation and management. has large right lateral hip wound after episode of soft tissue infection requiring large debridement. wound has been managed at outside facility and will be managed by surgery while in hospital. good granulation tissue over large area of debridement with last VAC change no tissues currently needing debridement. no drainage. no signs of active infection VAC change today. see op note for details -keep wound clean. continue with VAC q3days at 100mmHg. -next planned change Sunday 09/02 -will monitor wound with VAC changes. -will do debridement as necessary. thank you for this consultation and allowing me to participate in patients care. will follow with Maruicio Abel Aug 29, 2017 17:07
--- NOTE | 2017-08-29 18:17 | Pulmonology Progress Note ---
Assessment/Plan Problems: (1) UGI bleed (2) Anemia (3) Malnutrition (4) Acute renal failure (ARF) Assessment/Plan peg placement no new complains looks comfortable diet started advance diet as tolerated PT/ot nutrition evaluation. med/surg check labs in am all labs reviewed. dc planning Subjective ROS Limited/Unobtainable: No Constitutional: Reports: no symptoms HEENT: Repors: no symptoms Respiratory: Reports: no symptoms Allergies: Coded Allergies: No Known Allergies (Unverified , 08/17/17) Objective Last 24 Hour Vital Signs Date Time Temp Pulse Resp B/P (MAP) Pulse Ox O2 Delivery O2 Flow Rate FiO2 08/29/17 16:00 97.9 74 18 119/77 97 08/29/17 12:00 97.2 59 18 135/77 97 08/29/17 08:00 96.4 67 18 135/75 96 08/29/17 03:51 97.0 65 18 104/59 96 08/29/17 00:00 97.9 68 18 136/72 96 08/28/17 20:00 97.7 67 18 133/71 94 Intake and Output 08/29/17 08/30/17 19:00 07:00 Intake Total 800 ml Balance 800 ml IV Total 800 ml Objective General Appearance: WD/WN HEENT: normocephalic, atraumatic Respiratory/Chest: chest wall non-tender, lungs clear Breasts: no masses Cardiovascular: normal peripheral pulses Abdomen: normal bowel sounds, soft, non tender Genitourinary: normal external genitalia Skin: no rash Laboratory Tests 08/29/17 06:00: White Blood Count 5.0, Red Blood Count 2.31L, Hemoglobin 7.5L, Hematocrit 22.5L , Mean Corpuscular Volume 97, Mean Corpuscular Hemoglobin 32.4H, Mean Corpuscular Hemoglobin Concent 33.3, Red Cell Distribution Width 17.9H, Platelet Count 113L, Mean Platelet Volume 5.0L, Neutrophils (%) (Auto) , Lymphocytes (%) (Auto) , Monocytes (%) (Auto) , Eosinophils (%) (Auto) , Basophils (%) (Auto) , Differential Total Cells Counted 100, Neutrophils % ( Manual) 86H, Lymphocytes % (Manual) 9L, Monocytes % (Manual) 5, Eosinophils % ( Manual) 0, Basophils % (Manual) 0, Band Neutrophils 0, Platelet Estimate DecreasedL, Platelet Morphology Normal, Hypochromasia 3+, Anisocytosis 2+, Spherocytes 2+, Sodium Level 135L, Potassium Level 3.3L, Chloride Level 103, Carbon Dioxide Level 27, Anion Gap 5, Blood Urea Nitrogen 27H, Creatinine 4.0H, Estimat Glomerular Filtration Rate 15.4, Glucose Level 89, Calcium Level 7.2L Current Medications Medications (Trade) Dose Ordered Sig/Srini Route PRN Reason Start Time Stop Time Status Last Admin Dose Admin Acetaminophen (Tylenol) 650 mg Q4H PRN ORAL fever 08/23/17 18:10 09/16/17 18:09 Chlorhexidine Gluconate (Sandra-Hex 2%) 1 applic DAILY@2000 TOPIC 08/23/17 20:00 09/17/17 19:59 08/28/17 21:23 Clonidine HCl (Catapres) 0.1 mg Q4H PRN GT SBP > 160 08/23/17 18:00 09/16/17 21:59 Dextrose 1,000 ml @ 50 mls/hr Q20H IV 08/23/17 18:10 09/19/17 18:09 08/29/17 13:33 Dextrose (Dextrose 50%) STAT PRN IV Hypoglycemia 08/23/17 18:10 09/16/17 18:09 Levetiracetam 100 ml @ 400 mls/hr Q12HR IVPB 08/23/17 21:00 09/18/17 13:29 08/29/17 09:17 Levothyroxine Sodium (Synthroid) 75 mcg ACBREAKFAST GT 08/24/17 06:30 09/21/17 06:29 08/29/17 05:52 Morphine Sulfate (Morphine Sulfate) 2 mg Q4H PRN IVP For Pain 08/25/17 12:45 09/01/17 12:44 08/29/17 17:08 Ondansetron HCl (Zofran) 4 mg Q6H PRN IVP Nausea & Vomiting 08/23/17 18:10 09/16/17 18:09 08/25/17 18:10 Pantoprazole (Protonix) 40 mg EVERY 12 HOURS IVP 08/23/17 21:00 09/20/17 20:59 08/29/17 08:36 Polyethylene Glycol (Miralax) 17 gm HSPRN PRN GT Constipation 08/23/17 18:10 09/21/17 18:09 Sucralfate (Carafate) 1 gm FOUR TIMES A DAY ORAL 08/23/17 18:00 09/20/17 12:59 08/29/17 17:46 MAYRA BAKER Aug 29, 2017 18:17
[2017-08-29 20:00] VITALS: BP 136/72
[2017-08-29] MEDS: Dyna-Hex 2% Top Sol 2oz TOPIC SCH (21:23)
[2017-08-30] VITALS (12 sets, daily range): BP systolic 115–129; BP diastolic 64–77
[2017-08-30] MEDS: Morphine Sulfate 2mg/ml Inj IVP PRN ×6 (01:32→23:40)
[2017-08-30 07:18] LABS: INR 1.3 (0.9-1.1); PROTHROMBIN TIME 13.4 SEC (9.30-11.50)
[2017-08-30 07:21] LABS: ANION GAP 2 mmol/L (5-15); CALCIUM 7.4 MG/DL (8.5-10.1); CARBON DIOXIDE 35 MMOL/L (21-32); CHLORIDE 102 MMOL/L (98-107); CREATININE 1.8 MG/DL (0.55-1.30); GLOMERULAR FILTRATION RATE 38.7 mL/min (>60); POTASSIUM 3.2 MMOL/L (3.5-5.1); SODIUM 139 MMOL/L (136-145)
[2017-08-30 07:33] LABS: BASOPHILS % (AUTO) 0.4 % (0.0-2.0); EOSINOPHILS % (AUTO) 0.9 % (0.0-3.0); LYMPHOCYTES % (AUTO) 8.4 % (20.0-45.0); MEAN CORPUSCULAR HEMOGLOBIN 32.3 PG (27.0-31.0); MEAN CORPUSCULAR HGB CONC 33.8 G/DL (32.0-36.0); MEAN CORPUSCULAR VOLUME 96 FL (80-99); MONOCYTES % (AUTO) 7.5 % (1.0-10.0); NEUTROPHILS % (AUTO) 82.7 % (45.0-75.0); PLATELET COUNT 136 K/UL (150-450); RED BLOOD COUNT 2.63 M/UL (4.70-6.10); RED CELL DISTRIBUTION WIDTH 17.6 % (11.6-14.8); WHITE BLOOD COUNT 6.6 K/UL (4.8-10.8)
[2017-08-30] MEDS: Sucralfate 1gm tab ORAL SCH ×4 (08:16→21:28)
[2017-08-30] MEDS: Pantoprazole Inj IVP SCH ×2 (08:18→21:28)
--- NOTE | 2017-08-30 09:02 | Infectious Diseases Prog Note ---
Assessment/Plan Assessment/Plan A: Recent necrotizing fascitis of R hip ? 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 Encephalopathy Hepatitis C Cellular immune deficiency, low CD4 GI bleeding, source esophagus Sinusitis P: observe off antibiotic will have PEG placement today Subjective ROS Limited/Unobtainable: Yes Respiratory: Reports: no symptoms Gastrointestinal/Abdominal: Reports: no symptoms Allergies: Coded Allergies: No Known Allergies (Unverified , 08/17/17) Objective Vital Signs Last 24 Hour Vital Signs Date Time Temp Pulse Resp B/P (MAP) Pulse Ox O2 Delivery O2 Flow Rate FiO2 08/30/17 06:30 Room Air 08/30/17 06:30 98.5 73 20 115/65 Room Air 08/30/17 04:00 97.2 69 18 129/77 95 08/30/17 02:00 98.0 98 20 126/64 Room Air 08/30/17 02:00 Room Air 08/30/17 00:00 97.7 65 18 121/65 99 08/29/17 20:00 97.5 63 18 136/72 96 08/29/17 16:00 97.9 74 18 119/77 97 08/29/17 12:00 97.2 59 18 135/77 97 Height (Feet): 5 Height (Inches): 6.00 Weight (Pounds): 120 General Appearance: no acute distress Respiratory/Chest: lungs clear Cardiovascular: normal rate Abdomen: soft, non tender Extremities: no edema Skin: ulcers, other - left hip Neurologic/Psychiatric: alert, responsive Laboratory Tests Test 08/30/17 06:00 White Blood Count 6.6 K/UL (4.8-10.8) Red Blood Count 2.63 M/UL (4.70-6.10) L Hemoglobin 8.5 G/DL (14.2-18.0) L Hematocrit 25.2 % (42.0-52.0) L Mean Corpuscular Volume 96 FL (80-99) Mean Corpuscular Hemoglobin 32.3 PG (27.0-31.0) H Mean Corpuscular Hemoglobin Concent 33.8 G/DL (32.0-36.0) Red Cell Distribution Width 17.6 % (11.6-14.8) H Platelet Count 136 K/UL (150-450) L Mean Platelet Volume 5.0 FL (6.5-10.1) L Neutrophils (%) (Auto) 82.7 % (45.0-75.0) H Lymphocytes (%) (Auto) 8.4 % (20.0-45.0) L Monocytes (%) (Auto) 7.5 % (1.0-10.0) Eosinophils (%) (Auto) 0.9 % (0.0-3.0) Basophils (%) (Auto) 0.4 % (0.0-2.0) Prothrombin Time 13.4 SEC (9.30-11.50) H Prothromb Time International Ratio 1.3 (0.9-1.1) H Activated Partial Thromboplast Time 41 SEC (23-33) H Sodium Level 139 MMOL/L (136-145) Potassium Level 3.2 MMOL/L (3.5-5.1) L Chloride Level 102 MMOL/L (98-107) Carbon Dioxide Level 35 MMOL/L (21-32) H Anion Gap 2 mmol/L (5-15) L Blood Urea Nitrogen 10 mg/dL (7-18) Creatinine 1.8 MG/DL (0.55-1.30) #H Estimat Glomerular Filtration Rate 38.7 mL/min (>60) Glucose Level 87 MG/DL (74-106) Calcium Level 7.4 MG/DL (8.5-10.1) L Current Medications Medications (Trade) Dose Ordered Sig/Srini Route PRN Reason Start Time Stop Time Status Last Admin Dose Admin Acetaminophen (Tylenol) 650 mg Q4H PRN ORAL fever 08/23/17 18:10 09/16/17 18:09 Chlorhexidine Gluconate (Sandra-Hex 2%) 1 applic DAILY@1999 TOPIC 08/23/17 20:00 09/17/17 19:59 08/29/17 21:23 Clonidine HCl (Catapres) 0.1 mg Q4H PRN GT SBP > 160 08/23/17 18:00 09/16/17 21:59 Dextrose 1,000 ml @ 50 mls/hr Q20H IV 08/23/17 18:10 09/19/17 18:09 08/29/17 13:33 Dextrose (Dextrose 50%) STAT PRN IV Hypoglycemia 08/23/17 18:10 09/16/17 18:09 Levetiracetam 100 ml @ 400 mls/hr Q12HR IVPB 08/23/17 21:00 09/18/17 13:29 08/29/17 21:23 Levothyroxine Sodium (Synthroid) 75 mcg ACBREAKFAST GT 08/24/17 06:30 09/21/17 06:29 08/29/17 05:52 Morphine Sulfate (Morphine Sulfate) 2 mg Q4H PRN IVP For Pain 08/25/17 12:45 09/01/17 12:44 08/30/17 06:29 Ondansetron HCl (Zofran) 4 mg Q6H PRN IVP Nausea & Vomiting 08/23/17 18:10 09/16/17 18:09 08/25/17 18:10 Pantoprazole (Protonix) 40 mg EVERY 12 HOURS IVP 08/23/17 21:00 09/20/17 20:59 08/30/17 08:18 Polyethylene Glycol (Miralax) 17 gm HSPRN PRN GT Constipation 08/23/17 18:10 09/21/17 18:09 Potassium Chloride (K-Dur) 20 meq DAILY NG 08/30/17 09:00 09/29/17 08:59 08/30/17 08:58 Sucralfate (Carafate) 1 gm FOUR TIMES A DAY ORAL 08/23/17 18:00 09/20/17 12:59 08/29/17 21:24 TOYA ENGLISH Aug 30, 2017 09:02
--- NOTE | 2017-08-30 09:13 | Pre-Procedure Note/Attestation ---
Pre-Procedure Note/Attestation Complete Prior to Procedure Planned Procedure: not applicable Procedure Narrative: EGD/PEG Indications for Procedure Pre-Operative Diagnosis: DYSPHAGIA Attestation I attest that I discussed the nature of the procedure; its benefits; risks and complications; and alternatives (and the risks and benefits of such alternatives ), prior to the procedure, with the patient (or the patient's legal representative personal service). I attest that, if there was a reasonable possibility of needing a blood transfusion, the patient (or the patient's legal representative personal service) was given the [facility] standardized written summary, pursuant to the Aleksandr Jerald Blood Safety Act ([place] Health and Safety Code # 1645, as amended). I attest that I re-evaluated the patient just prior to the surgery and that there has been no change in the patient's H&P, except as documented below: SUE PORTILLO Aug 30, 2017 09:13
[2017-08-30] MEDS ORDERED: cefOXitin 1gm Inj IVP ONE ×2 (09:15→09:18)
[2017-08-30] MEDS ORDERED: NS 500ML IV ONE (09:15)
[2017-08-30] MEDS ORDERED: Lidocaine 1% MPF 10mg/ml 5ml ONE (09:30)
[2017-08-30] MEDS ORDERED: Propofol 200mg/20ml IV ONE (09:30)
[2017-08-30] MEDS ORDERED: cefOXitin 1gm Inj ONE (09:30)
--- NOTE | 2017-08-30 09:32 | Endoscopy Procedure Note ---
Endoscopy Procedure Note Indication for Procedure: DYSPHAGIA Procedures Performed: EGD, PEG Operative Findings/Diagnosis: SAME Specimen: none Pt Tolerated Procedure Well: Yes Estimated Blood Loss: none Anesthesiologist: AIYANA Anesthesia: MAC Implant(s) used?: No 50 yrs or older w/o bx or poly: Not Applicable 10yrs. F/U not recommended: Not Applicable SUE PORTILLO Aug 30, 2017 09:32
--- NOTE | 2017-08-30 10:20 | Anethesia Preoperative Eval ---
Anesthesia Pre-op PMH/ROS General Date of Evaluation: Aug 30, 2017 Time of Evaluation: 09:21 Anesthesiologist: mayo ASA Score: ASA 4 Mallampati Score Class I : Soft palate, uvula, fauces, pillars visible Class II: Soft palate, uvula, fauces visible Class III: Soft palate, base of uvula visible Class IV: Only hard plate visible Mallampati Classification: Class II Surgeon: mahnaz Diagnosis: dysphagia,ftt Surgical Procedure: egd/peg Anesthesia History: none Family History: no anesthesia problems Allergies: Coded Allergies: No Known Allergies (Unverified , 08/17/17) Medications: see eMAR Past Medical History Gastrointestinal/Genitourinary: Reports: ESRD, other - encephalopathy Neurologic/Psychiatric: Reports: other - ams Hematology/Immune: Reports: anemia, other - facial lymphoma Anesthesia Pre-op Phys. Exam Physician Exam Last Vital Signs Date Time Temp Pulse Resp B/P (MAP) Pulse Ox O2 Delivery O2 Flow Rate FiO2 08/30/17 10:00 98.0 63 18 124/71 99 Room Air 08/30/17 09:47 3.0 08/25/17 16:04 100 Constitutional: NAD Neurologic: other Cardiovascular: RRR Respiratory: CTA Gastrointestinal: S/NT/ND Airway Exam Mallampati Score: Class II MO: limited Neck: supple TMD: 2fb ROM: limited Teeth: missing, broken Anesthesia Pre-op A/P Labs Hematology Test 08/30/17 06:00 White Blood Count 6.6 K/UL (4.8-10.8) Red Blood Count 2.63 M/UL (4.70-6.10) L Hemoglobin 8.5 G/DL (14.2-18.0) L Hematocrit 25.2 % (42.0-52.0) L Mean Corpuscular Volume 96 FL (80-99) Mean Corpuscular Hemoglobin 32.3 PG (27.0-31.0) H Mean Corpuscular Hemoglobin Concent 33.8 G/DL (32.0-36.0) Red Cell Distribution Width 17.6 % (11.6-14.8) H Platelet Count 136 K/UL (150-450) L Mean Platelet Volume 5.0 FL (6.5-10.1) L Neutrophils (%) (Auto) 82.7 % (45.0-75.0) H Lymphocytes (%) (Auto) 8.4 % (20.0-45.0) L Monocytes (%) (Auto) 7.5 % (1.0-10.0) Eosinophils (%) (Auto) 0.9 % (0.0-3.0) Basophils (%) (Auto) 0.4 % (0.0-2.0) Coagulation Test 08/30/17 06:00 Prothrombin Time 13.4 SEC (9.30-11.50) H Prothromb Time International Ratio 1.3 (0.9-1.1) H Activated Partial Thromboplast Time 41 SEC (23-33) H Chemistry Test 08/30/17 06:00 Sodium Level 139 MMOL/L (136-145) Potassium Level 3.2 MMOL/L (3.5-5.1) L Chloride Level 102 MMOL/L (98-107) Carbon Dioxide Level 35 MMOL/L (21-32) H Anion Gap 2 mmol/L (5-15) L Blood Urea Nitrogen 10 mg/dL (7-18) Creatinine 1.8 MG/DL (0.55-1.30) #H Estimat Glomerular Filtration Rate 38.7 mL/min (>60) Glucose Level 87 MG/DL (74-106) Calcium Level 7.4 MG/DL (8.5-10.1) L Risk Assessment & Plan Assessment: asa4 Plan: mac Status Change Before Surgery: No Pre-Antibiotics Drug: cefoxitin 1gm Given Within 1 Hr of Incision: Yes Time Given: 09:18 WILL TALBOT Aug 30, 2017 10:20
--- NOTE | 2017-08-30 10:22 | Immediate Post-Op Evaluation ---
Immediate Post-Op Evalulation Immediate Post-Op Evalulation Procedure: egd/peg Date of Evaluation: Aug 30, 2017 Time of Evaluation: 09:54 IV Fluids: 150ml 0.9ns Blood Products: none Estimated Blood Loss: negligible Blood Pressure Systolic: 120 Blood Pressure Diastolic: 70 Pulse Rate: 62 Respiratory Rate: 18 O2 Sat by Pulse Oximetry: 100 Temperature (Fahrenheit): 97.9 Pain Score (1-10): 0 Nausea: No Vomiting: No Complications none Patient Status: awake, reacts, patent Hydration Status: adequate Drug: cefoxitin 1gm Given Within 1 Hr of Incision: Yes Time Given: 09:18 WILL TALBOT Aug 30, 2017 10:22
--- NOTE | 2017-08-30 10:23 | 48 Hour Post Anesthesia Eval ---
Post Anesthesia Evaluation Procedure: egd/peg Date of Evaluation: Aug 30, 2017 Time of Evaluation: 09:56 Blood Pressure Systolic: 118 0: 74 Pulse Rate: 65 Respiratory Rate: 18 Temperature (Fahrenheit): 97.9 O2 Sat by Pulse Oximetry: 100 Airway: patent Nausea: No Vomiting: No Pain Intensity: 0 Hydration Status: adequate Cardiopulmonary Status: stable Mental Status/LOC: patient returned to baseline Post-Anesthesia Complications: none Follow-up care needed: N/A WILL TALBOT Aug 30, 2017 10:23
[2017-08-30] MEDS: levETIRAcetam 1,000mg/NS100ml 100 ML IVPB SCH ×2 (10:29→21:29)
[2017-08-30] MEDS ORDERED: DiphenhydrAMINE 50mg/ml Inj IVP PRN (10:30)
[2017-08-30] MEDS ORDERED: Atropine Inj 1mg/10ml Syr IV PRN (10:30)
[2017-08-30] MEDS ORDERED: fentaNYL 100 mcg/2 mL IV PRN (10:30)
[2017-08-30] MEDS ORDERED: cefOXitin Sod 1 GM in D5W 55 ML IVPB ONE (10:30)
[2017-08-30] MEDS ORDERED: Midazolam 2mg/2ml Inj IVP PRN (10:30)
--- NOTE | 2017-08-30 10:34 | General Surgery Progress Note ---
General Surgery-Progress Note Subjective Procedure Performed Wound VAC change for large right hip wound Additional Comments vac functional and clean Objective Last 24 Hour Vital Signs Date Time Temp Pulse Resp B/P (MAP) Pulse Ox O2 Delivery O2 Flow Rate FiO2 08/30/17 10:23 65 18 100 08/30/17 10:22 62 18 100 08/30/17 10:00 98.0 63 18 124/71 99 Room Air 08/30/17 09:52 63 18 116/72 99 Room Air 08/30/17 09:47 65 18 120/70 99 Nasal Cannula 3.0 08/30/17 09:42 97.9 65 18 118/69 99 Nasal Cannula 3.0 08/30/17 08:00 97.5 76 18 127/72 96 08/30/17 06:30 Room Air 08/30/17 06:30 98.5 73 20 115/65 Room Air 08/30/17 04:00 97.2 69 18 129/77 95 08/30/17 02:00 98.0 98 20 126/64 Room Air 08/30/17 02:00 Room Air 08/30/17 00:00 97.7 65 18 121/65 99 08/29/17 20:00 97.5 63 18 136/72 96 08/29/17 16:00 97.9 74 18 119/77 97 08/29/17 12:00 97.2 59 18 135/77 97 I&O Intake and Output 08/30/17 08/31/17 19:00 07:00 Intake Total 200 ml Balance 200 ml IV Total 200 ml Drains: wound vac Cardiovascular: RSR Respiratory: clear Abdomen: soft, non-tender Extremities: no tenderness Laboratory Tests Test 08/30/17 06:00 White Blood Count 6.6 K/UL (4.8-10.8) Red Blood Count 2.63 M/UL (4.70-6.10) L Hemoglobin 8.5 G/DL (14.2-18.0) L Hematocrit 25.2 % (42.0-52.0) L Mean Corpuscular Volume 96 FL (80-99) Mean Corpuscular Hemoglobin 32.3 PG (27.0-31.0) H Mean Corpuscular Hemoglobin Concent 33.8 G/DL (32.0-36.0) Red Cell Distribution Width 17.6 % (11.6-14.8) H Platelet Count 136 K/UL (150-450) L Mean Platelet Volume 5.0 FL (6.5-10.1) L Neutrophils (%) (Auto) 82.7 % (45.0-75.0) H Lymphocytes (%) (Auto) 8.4 % (20.0-45.0) L Monocytes (%) (Auto) 7.5 % (1.0-10.0) Eosinophils (%) (Auto) 0.9 % (0.0-3.0) Basophils (%) (Auto) 0.4 % (0.0-2.0) Prothrombin Time 13.4 SEC (9.30-11.50) H Prothromb Time International Ratio 1.3 (0.9-1.1) H Activated Partial Thromboplast Time 41 SEC (23-33) H Sodium Level 139 MMOL/L (136-145) Potassium Level 3.2 MMOL/L (3.5-5.1) L Chloride Level 102 MMOL/L (98-107) Carbon Dioxide Level 35 MMOL/L (21-32) H Anion Gap 2 mmol/L (5-15) L Blood Urea Nitrogen 10 mg/dL (7-18) Creatinine 1.8 MG/DL (0.55-1.30) #H Estimat Glomerular Filtration Rate 38.7 mL/min (>60) Glucose Level 87 MG/DL (74-106) Calcium Level 7.4 MG/DL (8.5-10.1) L Plan Problems: (1) Wound, open, hip or thigh Assessment & Plan: 62M here for medical evaluation and management. has large right lateral hip wound after episode of soft tissue infection requiring large debridement. wound has been managed at outside facility and will be managed by surgery while in hospital. good granulation tissue over large area of debridement with last VAC change no tissues currently needing debridement. no drainage. no signs of active infection VAC changed yesterday -keep wound clean. continue with VAC q3days at 100mmHg. -next planned change Sunday 09/02 -will monitor wound with VAC changes. -will do debridement as necessary. thank you for this consultation and allowing me to participate in patients care. will follow with Mauricio Abel Aug 30, 2017 10:34
--- NOTE | 2017-08-30 11:13 | Nephrology Progress Note ---
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 2D Echo- Left ventricular ejection fraction estimated to be grossly normal. Avoid nephrotoxics- Subjective ROS Limited/Unobtainable: No Constitutional: Reports: malaise Objective Objective Last 24 Hour Vital Signs Date Time Temp Pulse Resp B/P (MAP) Pulse Ox O2 Delivery O2 Flow Rate FiO2 08/30/17 10:23 65 18 100 08/30/17 10:22 62 18 100 08/30/17 10:00 98.0 63 18 124/71 99 Room Air 08/30/17 09:52 63 18 116/72 99 Room Air 08/30/17 09:47 65 18 120/70 99 Nasal Cannula 3.0 08/30/17 09:42 97.9 65 18 118/69 99 Nasal Cannula 3.0 08/30/17 08:00 97.5 76 18 127/72 96 08/30/17 06:30 Room Air 08/30/17 06:30 98.5 73 20 115/65 Room Air 08/30/17 04:00 97.2 69 18 129/77 95 08/30/17 02:00 98.0 98 20 126/64 Room Air 08/30/17 02:00 Room Air 08/30/17 00:00 97.7 65 18 121/65 99 08/29/17 20:00 97.5 63 18 136/72 96 08/29/17 16:00 97.9 74 18 119/77 97 08/29/17 12:00 97.2 59 18 135/77 97 Intake and Output 08/30/17 08/31/17 19:00 07:00 Intake Total 200 ml Balance 200 ml IV Total 200 ml Laboratory Tests 08/30/17 06:00: White Blood Count 6.6, Red Blood Count 2.63L, Hemoglobin 8.5L, Hematocrit 25.2L , Mean Corpuscular Volume 96, Mean Corpuscular Hemoglobin 32.3H, Mean Corpuscular Hemoglobin Concent 33.8, Red Cell Distribution Width 17.6H, Platelet Count 136L, Mean Platelet Volume 5.0L, Neutrophils (%) (Auto) 82.7H, Lymphocytes (%) (Auto) 8.4L, Monocytes (%) (Auto) 7.5, Eosinophils (%) (Auto) 0.9, Basophils (%) (Auto) 0.4, Prothrombin Time 13.4H, Prothromb Time International Ratio 1.3H, Activated Partial Thromboplast Time 41H, Sodium Level 139, Potassium Level 3.2L, Chloride Level 102, Carbon Dioxide Level 35H, Anion Gap 2L, Blood Urea Nitrogen 10, Creatinine 1.8#H, Estimat Glomerular Filtration Rate 38.7, Glucose Level 87, Calcium Level 7.4L Height (Feet): 5 Height (Inches): 6.00 Weight (Pounds): 120 General Appearance: no apparent distress Objective PE not changed RYAN MCCLOUD Aug 30, 2017 11:13
--- NOTE | 2017-08-30 12:51 | Pulmonology Progress Note ---
Assessment/Plan Assessment/Plan ASSESSMENT acute toxic metabolic encephalopathy-resolved ( likely due to acute renal failure) acute renal failure on CKD New start on HD elevated troponin ( 2 to ARF ) dehydration metabolic acidosis e/lyte imbalance s/p EGD 08/20 gastritis dysphagia, s/p PEG new onset of verbal unresponsiveness and generalized myoclonus, r/o seizure activity r/o meningeal carcinomatosis-negative acute anemia requiring blood transfusion recent necrotizing fasciitis R hip R lateral hip wound with wound Vac fungal UTI, s/p Rx R facial lymphoma ( was on chemo) severe protein calorie malnutrition hepatitis C hx of smoking PLAN OF CARE MS floor CT head no acute findings neuro follows MRI brain no acute IC pathology seizure precautions started on Keppra EEG abnormal with generalized slowing, but no definite epileptiform activity O2 HHN prn ECHO with pEF to the extent visualized nephro follows HD as per nephro , new onset monitor renal parameters, lytes, correct as needed renal US revealed bilateral echogenic kidneys c/w medical renal disease ID follows s/p rx fro fungal UTI observe off abx surgery follows wound vac changed 08/29 last time, wound VAC functional and clean per surgery no need for debridement , no signs of active infection anemia workup, likely 2 to chemo , monitor counts and transfuse prn required blood transfusion, remains at baseline afterwards initially NPO NG tube for meds s/p EGD due to hematemesis with findings of gastritis, severe friable oozing blood from distal esophagus, most probably from chemo. PPI and Carafate gastric biopsy c/w chronic mild gastritis, no Helicobacter passed swallow eval, but did not eat because it was painful s/p PEG 08/30 strict aspiration/reflux precautions GT feeding, tolerates dietary recommendations implemented pain management bowel regimen PT/OT DVT prophayxlis dc plan case discussed and evaluated by supervising physician Subjective Allergies: Coded Allergies: No Known Allergies (Unverified , 08/17/17) Subjective tolerates TF afebrile wound VAC changed 08/29 Objective Last 24 Hour Vital Signs Date Time Temp Pulse Resp B/P (MAP) Pulse Ox O2 Delivery O2 Flow Rate FiO2 08/30/17 10:23 65 18 100 08/30/17 10:22 62 18 100 08/30/17 10:00 98.0 63 18 124/71 99 Room Air 08/30/17 09:52 63 18 116/72 99 Room Air 08/30/17 09:47 65 18 120/70 99 Nasal Cannula 3.0 08/30/17 09:42 97.9 65 18 118/69 99 Nasal Cannula 3.0 08/30/17 08:00 97.5 76 18 127/72 96 08/30/17 06:30 Room Air 08/30/17 06:30 98.5 73 20 115/65 Room Air 08/30/17 04:00 97.2 69 18 129/77 95 08/30/17 02:00 98.0 98 20 126/64 Room Air 08/30/17 02:00 Room Air 08/30/17 00:00 97.7 65 18 121/65 99 08/29/17 20:00 97.5 63 18 136/72 96 08/29/17 16:00 97.9 74 18 119/77 97 Intake and Output 08/30/17 08/31/17 19:00 07:00 Intake Total 200 ml Balance 200 ml IV Total 200 ml General Appearance: no acute distress, cachetic, other - awake, alert, responsive HEENT: other - R facial changes Respiratory/Chest: chest wall non-tender, lungs clear, no respiratory distress Cardiovascular: normal peripheral pulses, normal rate, no JVD, other - R chest PAC Abdomen: normal bowel sounds, soft, non tender, non distended, other - G tube Skin: other - large wound R lateral hip with wound VAC, anterior chest and upper arm multiple tattoos Neurologic/Psychiatric: abnormal gait, alert, responsive Musculoskeletal: atrophy - BLE Laboratory Tests 08/30/17 06:00: White Blood Count 6.6, Red Blood Count 2.63L, Hemoglobin 8.5L, Hematocrit 25.2L , Mean Corpuscular Volume 96, Mean Corpuscular Hemoglobin 32.3H, Mean Corpuscular Hemoglobin Concent 33.8, Red Cell Distribution Width 17.6H, Platelet Count 136L, Mean Platelet Volume 5.0L, Neutrophils (%) (Auto) 82.7H, Lymphocytes (%) (Auto) 8.4L, Monocytes (%) (Auto) 7.5, Eosinophils (%) (Auto) 0.9, Basophils (%) (Auto) 0.4, Prothrombin Time 13.4H, Prothromb Time International Ratio 1.3H, Activated Partial Thromboplast Time 41H, Sodium Level 139, Potassium Level 3.2L, Chloride Level 102, Carbon Dioxide Level 35H, Anion Gap 2L, Blood Urea Nitrogen 10, Creatinine 1.8#H, Estimat Glomerular Filtration Rate 38.7, Glucose Level 87, Calcium Level 7.4L Current Medications Medications (Trade) Dose Ordered Sig/Srini Route PRN Reason Start Time Stop Time Status Last Admin Dose Admin Acetaminophen (Tylenol) 650 mg Q4H PRN ORAL fever 08/23/17 18:10 09/16/17 18:09 Al Hydroxide/Mg Hydroxide (Mylanta) 15 ml Q1H PRN ORAL gi upset 08/30/17 10:30 08/30/17 17:00 Atropine Sulfate (Atropine) 0.5 mg Q5M PRN IV bpm less than 45 08/30/17 10:30 08/30/17 17:00 Chlorhexidine Gluconate (Sandra-Hex 2%) 1 applic DAILY@2000 TOPIC 08/23/17 20:00 09/17/17 19:59 08/29/17 21:23 Clonidine HCl (Catapres) 0.1 mg Q4H PRN GT SBP > 160 08/23/17 18:00 09/16/17 21:59 Dextrose 1,000 ml @ 50 mls/hr Q20H IV 08/23/17 18:10 09/19/17 18:09 08/30/17 10:29 Dextrose (Dextrose 50%) STAT PRN IV Hypoglycemia 08/23/17 18:10 09/16/17 18:09 Diphenhydramine HCl (Benadryl) 25 mg Q15M PRN IVP Itching 08/30/17 10:30 08/30/17 17:00 Fentanyl Citrate (Sublimaze 100 mcg/2 mL) 25 mcg Q10M PRN IV Moderate Pain (Pain Scale 4-6) 08/30/17 10:30 08/30/17 15:00 Levetiracetam 100 ml @ 400 mls/hr Q12HR IVPB 08/23/17 21:00 09/18/17 13:29 08/30/17 10:29 Levothyroxine Sodium (Synthroid) 75 mcg ACBREAKFAST GT 08/24/17 06:30 09/21/17 06:29 08/29/17 05:52 Midazolam HCl (Versed 2mg/2ml vial) 1 mg Q15M PRN IVP For Anxiety 08/30/17 10:30 08/30/17 16:00 Morphine Sulfate (Morphine Sulfate) 2 mg Q4H PRN IVP For Pain 08/25/17 12:45 09/01/17 12:44 08/30/17 10:49 Ondansetron HCl (Zofran) 4 mg Q1H PRN IVP Nausea & Vomiting 08/30/17 10:30 08/30/17 17:00 Ondansetron HCl (Zofran) 4 mg Q6H PRN IVP Nausea & Vomiting 08/23/17 18:10 09/16/17 18:09 08/25/17 18:10 Pantoprazole (Protonix) 40 mg EVERY 12 HOURS IVP 08/23/17 21:00 09/20/17 20:59 08/30/17 08:18 Polyethylene Glycol (Miralax) 17 gm HSPRN PRN GT Constipation 08/23/17 18:10 09/21/17 18:09 Potassium Chloride (K-Dur) 20 meq DAILY NG 08/30/17 09:00 09/29/17 08:59 08/30/17 08:58 Sodium Chloride 1,000 ml @ 10 mls/hr Q24H IVLG 08/30/17 10:23 08/30/17 15:00 Sucralfate (Carafate) 1 gm FOUR TIMES A DAY ORAL 08/23/17 18:00 09/20/17 12:59 08/29/17 21:24 [facility]ef[facility]zmanEll[facility] Island Imm[facility] HospitalEstefania Domingo NP Aug 30, 2017 12:51
--- NOTE | 2017-08-30 14:18 | Cardiac Electrophysiology PN ---
Assessment/Plan Status Narrative Normal left ventricular chamber size, systolic function and wall motion to extent visualized. Left ventricular ejection fraction estimated to be grossly normal. No evidence of left ventricular hypertrophy. No evidence of pericardial effusion. All other cardiac chamber sizes are within normal limits. Focal aortic valve sclerosis with adequate cusp excursion. Thickened mitral valve leaflets with normal excursion. Mild mitral annulus and aortic root calcification. Pulmonic valve not visualized. Normal tricuspid valve structure. IVC at normal size with physiologic collapse. Assessment/Plan 1. Abnormal electrocardiogram with primary T-wave abnormality.1st and 3rd trop were negative and second one 0.7. Due to renal failure and sepsis.Echocardiogram Nl EF. No chest pain or SOB. 2. Metabolic acidosis Due to renal failure and sepsis 3. BNP of more than 5000. Due to renal failure and volume overload. 4. Renal failure. S/P Tray catheter and HD per Dr. Blakely 5. Hypernatremia. On D5W 6. Altered mental status. Head CT showed no acute intracranial bleed, mass effect, or edema. MRI brain showed Age-related volume loss and Negative for acute intracranial bleed, infarct, or mass effect 7. Hematemesis. S/P EGD by Dr Kitchen. S/P blood transfusion. 8. Dysphagia. Passed swallow eval but doesn't eat as its painful. S/P PEG today DW RN Subjective Subjective No chest pain or SOB. Alert in NAD.Just had PEG placement Objective Last 24 Hour Vital Signs Date Time Temp Pulse Resp B/P (MAP) Pulse Ox O2 Delivery O2 Flow Rate FiO2 08/30/17 12:00 97.8 68 19 128/69 98 08/30/17 10:23 65 18 100 08/30/17 10:22 62 18 100 08/30/17 10:00 98.0 63 18 124/71 99 Room Air 08/30/17 09:52 63 18 116/72 99 Room Air 08/30/17 09:47 65 18 120/70 99 Nasal Cannula 3.0 08/30/17 09:42 97.9 65 18 118/69 99 Nasal Cannula 3.0 08/30/17 08:00 97.5 76 18 127/72 96 08/30/17 06:30 Room Air 08/30/17 06:30 98.5 73 20 115/65 Room Air 08/30/17 04:00 97.2 69 18 129/77 95 08/30/17 02:00 98.0 98 20 126/64 Room Air 08/30/17 02:00 Room Air 08/30/17 00:00 97.7 65 18 121/65 99 08/29/17 20:00 97.5 63 18 136/72 96 08/29/17 16:00 97.9 74 18 119/77 97 Intake and Output 08/30/17 08/31/17 18:59 06:59 Intake Total 700 ml Output Total 350 ml Balance 350 ml IV Total 700 ml Output Urine Total 350 ml Laboratory Tests Test 08/30/17 06:00 White Blood Count 6.6 K/UL (4.8-10.8) Red Blood Count 2.63 M/UL (4.70-6.10) L Hemoglobin 8.5 G/DL (14.2-18.0) L Hematocrit 25.2 % (42.0-52.0) L Mean Corpuscular Volume 96 FL (80-99) Mean Corpuscular Hemoglobin 32.3 PG (27.0-31.0) H Mean Corpuscular Hemoglobin Concent 33.8 G/DL (32.0-36.0) Red Cell Distribution Width 17.6 % (11.6-14.8) H Platelet Count 136 K/UL (150-450) L Mean Platelet Volume 5.0 FL (6.5-10.1) L Neutrophils (%) (Auto) 82.7 % (45.0-75.0) H Lymphocytes (%) (Auto) 8.4 % (20.0-45.0) L Monocytes (%) (Auto) 7.5 % (1.0-10.0) Eosinophils (%) (Auto) 0.9 % (0.0-3.0) Basophils (%) (Auto) 0.4 % (0.0-2.0) Prothrombin Time 13.4 SEC (9.30-11.50) H Prothromb Time International Ratio 1.3 (0.9-1.1) H Activated Partial Thromboplast Time 41 SEC (23-33) H Sodium Level 139 MMOL/L (136-145) Potassium Level 3.2 MMOL/L (3.5-5.1) L Chloride Level 102 MMOL/L (98-107) Carbon Dioxide Level 35 MMOL/L (21-32) H Anion Gap 2 mmol/L (5-15) L Blood Urea Nitrogen 10 mg/dL (7-18) Creatinine 1.8 MG/DL (0.55-1.30) #H Estimat Glomerular Filtration Rate 38.7 mL/min (>60) Glucose Level 87 MG/DL (74-106) Calcium Level 7.4 MG/DL (8.5-10.1) L Objective HEAD AND NECK: No JVD. Right face scar unchanged LUNGS: Clear. CARDIOVASCULAR: Regular. S1 and S2 with no gallop, his chest has a right- sided port. ABDOMEN: Soft.S/P PEG EXTREMITIES: No edema. NICOLÁS PARKINSON Aug 30, 2017 14:18
--- NOTE | 2017-08-30 15:45 | Procedure Note ---
DATE OF PROCEDURE: 08/30/2017 SURGEON: Ravi Kitchen M.D. PROCEDURE: Upper endoscopy with PEG placement. ANESTHESIA: Per Dr. High. INSTRUMENT: Olympus adult flexible upper endoscope. INDICATION: Dysphagia. The procedure, risks, benefits, and possible consequences, including hemorrhage, aspiration, perforation and infection, and alternative treatments, were explained to the patient/legal guardian by Dr. Ravi Kitchen and the patient/legal guardian understood and accepted these risks. DESCRIPTION OF PROCEDURE: After informed consent was obtained and the patient was adequately sedated, Olympus upper endoscope was advanced from mouth into the second portion of duodenum and retroflexion was performed in the stomach. Under endoscopic guidance and under sterile condition, a 20-Romanian pull type of G-tube was placed in the epigastric area. The distance from the tip of the tube to skin was about 2.5 cm in size. The patient tolerated the procedure well without any complication. SUMMARY FINDINGS: Status post successful PEG placement. RECOMMENDATIONS: 1. Abdominal binder. 2. Elevate head of the bed at all times. 3. G-tube flush. 4. G-tube care. 5. Okay to start tube feeding later today. 6. The patient received a dose of antibiotic prior to this procedure. I want to thank Dr. Sherif Dailey for this kind referral. Ravi Kitchen M.D. DR: RAVI JOB#: [id number] CC: Sherif Dailey D.O.
--- NOTE | 2017-08-30 20:44 | General Progress Note ---
Assessment/Plan Problem List: (1) Altered level of consciousness ICD Codes: R40.4 - Transient alteration of awareness SNOMED: 1579896 (2) Acute renal failure ICD Codes: N17.9 - Acute kidney failure, unspecified SNOMED: 98167409 (3) Dehydration ICD Codes: E86.0 - Dehydration SNOMED: 88686851 (4) Anemia ICD Codes: D64.9 - Anemia, unspecified SNOMED: 388629239 (5) Lymphoma ICD Codes: C85.90 - Non-Hodgkin lymphoma, unspecified, unspecified site SNOMED: 647890741 (6) Malnutrition ICD Codes: E46 - Unspecified protein-calorie malnutrition SNOMED: 64628461 (7) Hypothyroid ICD Codes: E03.9 - Hypothyroidism, unspecified SNOMED: 17830412 Status: progressing Assessment/Plan afebrile wound sepsis ams lymphoma reviewed chart and labs vitals stable Subjective ROS Limited/Unobtainable: Yes Constitutional: Reports: no symptoms Allergies: Coded Allergies: No Known Allergies (Unverified , 08/17/17) Objective Last 24 Hour Vital Signs Date Time Temp Pulse Resp B/P (MAP) Pulse Ox O2 Delivery O2 Flow Rate FiO2 08/30/17 15:50 97.7 71 19 123/73 98 Room Air 08/30/17 12:00 97.8 68 19 128/69 98 08/30/17 10:23 65 18 100 08/30/17 10:22 62 18 100 08/30/17 10:00 98.0 63 18 124/71 99 Room Air 08/30/17 09:52 63 18 116/72 99 Room Air 08/30/17 09:47 65 18 120/70 99 Nasal Cannula 3.0 08/30/17 09:42 97.9 65 18 118/69 99 Nasal Cannula 3.0 08/30/17 08:00 97.5 76 18 127/72 96 08/30/17 06:30 Room Air 08/30/17 06:30 98.5 73 20 115/65 Room Air 08/30/17 04:00 97.2 69 18 129/77 95 08/30/17 02:00 98.0 98 20 126/64 Room Air 08/30/17 02:00 Room Air 08/30/17 00:00 97.7 65 18 121/65 99 Intake and Output 08/30/17 08/31/17 19:00 07:00 Intake Total 1000 ml Output Total 710 ml Balance 290 ml IV Total 1000 ml Output Urine Total 710 ml Laboratory Tests 08/30/17 06:00: White Blood Count 6.6, Red Blood Count 2.63L, Hemoglobin 8.5L, Hematocrit 25.2L , Mean Corpuscular Volume 96, Mean Corpuscular Hemoglobin 32.3H, Mean Corpuscular Hemoglobin Concent 33.8, Red Cell Distribution Width 17.6H, Platelet Count 136L, Mean Platelet Volume 5.0L, Neutrophils (%) (Auto) 82.7H, Lymphocytes (%) (Auto) 8.4L, Monocytes (%) (Auto) 7.5, Eosinophils (%) (Auto) 0.9, Basophils (%) (Auto) 0.4, Prothrombin Time 13.4H, Prothromb Time International Ratio 1.3H, Activated Partial Thromboplast Time 41H, Sodium Level 139, Potassium Level 3.2L, Chloride Level 102, Carbon Dioxide Level 35H, Anion Gap 2L, Blood Urea Nitrogen 10, Creatinine 1.8#H, Estimat Glomerular Filtration Rate 38.7, Glucose Level 87, Calcium Level 7.4L Height (Feet): 5 Height (Inches): 6.00 Weight (Pounds): 120 Cardiovascular: normal rate Respiratory/Chest: lungs clear Abdomen: soft Fern Stafford MD Aug 30, 2017 20:43
[2017-08-30] MEDS: Dyna-Hex 2% Top Sol 2oz TOPIC SCH (21:28)
[2017-08-31] VITALS: BP 138/71
[2017-08-31] MEDS: Morphine Sulfate 2mg/ml Inj IVP PRN ×5 (03:44→20:27)
[2017-08-31 04:00] VITALS: BP 121/70
[2017-08-31 06:33] LABS: MEAN CORPUSCULAR HEMOGLOBIN 33.7 PG (27.0-31.0); MEAN CORPUSCULAR HGB CONC 34.5 G/DL (32.0-36.0); MEAN CORPUSCULAR VOLUME 98 FL (80-99); MEAN PLATELET VOLUME 5.2 FL (6.5-10.1); PLATELET COUNT 150 K/UL (150-450); RED BLOOD COUNT 2.25 M/UL (4.70-6.10); RED CELL DISTRIBUTION WIDTH 17.8 % (11.6-14.8); WHITE BLOOD COUNT 6.8 K/UL (4.8-10.8)
[2017-08-31 06:49] LABS: ALANINE AMINOTRANSFERASE 27 U/L (12-78); ALBUMIN/GLOBULIN RATIO 0.3 (1.0-2.7); ANION GAP 4 mmol/L (5-15); ASPARTATE AMINO TRANSFERASE 37 U/L (15-37); CALCIUM 7.3 MG/DL (8.5-10.1); CARBON DIOXIDE 31 MMOL/L (21-32); CHLORIDE 101 MMOL/L (98-107); CRP QUANT 10.3 mg/dL (0.00-0.90); GLOMERULAR FILTRATION RATE 21.5 mL/min (>60); MAGNESIUM 1.5 MG/DL (1.8-2.4); POTASSIUM 3.3 MMOL/L (3.5-5.1); SODIUM 136 MMOL/L (136-145); TOTAL PROTEIN 4.9 G/DL (6.4-8.2); URIC ACID 3.2 MG/DL (2.6-7.2)
[2017-08-31 08:00] VITALS: BP 117/67
[2017-08-31] MEDS: Sucralfate 1gm tab ORAL SCH ×4 (08:05→20:27)
[2017-08-31] MEDS: Pantoprazole Inj IVP SCH ×2 (08:05→20:26)
[2017-08-31] MEDS: levETIRAcetam 1,000mg/NS100ml 100 ML IVPB SCH ×2 (08:14→20:27)
--- NOTE | 2017-08-31 09:29 | Nephrology Progress Note ---
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 2D Echo- Left ventricular ejection fraction estimated to be grossly normal. Avoid nephrotoxics- Subjective ROS Limited/Unobtainable: No Constitutional: Reports: malaise Objective Objective Last 24 Hour Vital Signs Date Time Temp Pulse Resp B/P (MAP) Pulse Ox O2 Delivery O2 Flow Rate FiO2 08/31/17 04:00 97.3 95 19 121/70 95 Room Air 08/31/17 00:00 Room Air 08/31/17 00:00 97.2 79 20 138/71 93 Room Air 08/30/17 20:00 Room Air 08/30/17 20:00 97.5 70 19 127/69 97 Room Air 08/30/17 15:50 97.7 71 19 123/73 98 Room Air 08/30/17 12:00 97.8 68 19 128/69 98 08/30/17 10:23 65 18 100 08/30/17 10:22 62 18 100 08/30/17 10:00 98.0 63 18 124/71 99 Room Air 08/30/17 09:52 63 18 116/72 99 Room Air 08/30/17 09:47 65 18 120/70 99 Nasal Cannula 3.0 08/30/17 09:42 97.9 65 18 118/69 99 Nasal Cannula 3.0 Intake and Output 08/31/17 09/01/17 19:00 07:00 Intake Total 50 ml Balance 50 ml IV Total 50 ml Laboratory Tests 08/31/17 05:50: White Blood Count 6.8, Red Blood Count 2.25L, Hemoglobin 7.6L, Hematocrit 22.0L , Mean Corpuscular Volume 98, Mean Corpuscular Hemoglobin 33.7H, Mean Corpuscular Hemoglobin Concent 34.5, Red Cell Distribution Width 17.8H, Platelet Count 150, Mean Platelet Volume 5.2L, Neutrophils (%) (Auto) , Lymphocytes (%) (Auto) , Monocytes (%) (Auto) , Eosinophils (%) (Auto) , Basophils (%) (Auto) , Neutrophils % (Manual) [Pending], Lymphocytes % (Manual) [Pending], Platelet Estimate [Pending], Platelet Morphology [Pending], Sodium Level 136, Potassium Level 3.3L, Chloride Level 101, Carbon Dioxide Level 31, Anion Gap 4L, Blood Urea Nitrogen 15, Creatinine 3.0#H, Estimat Glomerular Filtration Rate 21.5, Glucose Level 107H, Uric Acid 3.2, Calcium Level 7.3L, Phosphorus Level 3.0, Magnesium Level 1.5L, Total Bilirubin 0.3, Aspartate Amino Transf (AST/SGOT) 37, Alanine Aminotransferase (ALT/SGPT) 27, Alkaline Phosphatase 82, C-Reactive Protein, Quantitative 10.3H, Total Protein 4.9L, Albumin 1.2L, Globulin 3.7, Albumin/Globulin Ratio 0.3L Height (Feet): 5 Height (Inches): 6.00 Weight (Pounds): 120 General Appearance: no apparent distress Cardiovascular: normal rate Respiratory/Chest: decreased breath sounds Abdomen: soft, other - has PEG Objective PE not changed RYAN MCCLOUD Aug 31, 2017 09:28
[2017-08-31 10:02] LABS: BAND NEUTROPHILS % (MANUAL) 4 % (0-8); EOSINOPHILS % (MANUAL) 1 % (0-3); LYMPHOCYTES % (MANUAL) 6 % (20-45); NEUTROPHILS % (MANUAL) 80 % (45-75); TOTAL CELLS COUNTED 100
[2017-08-31 10:03] LABS: ANISOCYTOSIS 1+; BASOPHILS % (MANUAL) 0 % (0-2); HYPOCHROMASIA 1+; MACROCYTES 1+; PLATELET ESTIMATE DECREASED; PLATELET MORPHOLOGY NORMAL
--- NOTE | 2017-08-31 10:47 | General Progress Note ---
Assessment/Plan Assessment/Plan ASSESSMENT AND RECOMMENDATIONS: 1. Upper GI bleed, s/p egd. GI service following. Now with EGD. 2. Facial lymphoma, status post chemotherapy with radiation. Currently cancer is in remission. Repeat CT of the head no evidence of malignancy. 3. Anemia secondary to chronic disease. Anemia workup has been reviewed. --> transfuse if hgb below 7 4. Anemia secondary to kidney disease. --> Nephrology service following. Continue dialysis 5. Altered mental status. Neurology service is evaluating the patient. 6. Necrotizing fasciitis, status post wound VAC and surgery, completed 2 weeks ago. --> continue wound care 7. Thrombocytopenia post surgical as well as due to underlying Hep C--> monitor closely. Improving 8. Hepatitis C Subjective Hematologic/Lymphatic: Reports: anemia Allergies: Coded Allergies: No Known Allergies (Unverified , 08/17/17) All Systems: reviewed and negative except above Subjective NAD. plt count better Objective Last 24 Hour Vital Signs Date Time Temp Pulse Resp B/P (MAP) Pulse Ox O2 Delivery O2 Flow Rate FiO2 08/31/17 08:00 98.1 73 20 117/67 96 Room Air 08/31/17 04:00 97.3 95 19 121/70 95 Room Air 08/31/17 00:00 Room Air 08/31/17 00:00 97.2 79 20 138/71 93 Room Air 08/30/17 20:00 Room Air 08/30/17 20:00 97.5 70 19 127/69 97 Room Air 08/30/17 15:50 97.7 71 19 123/73 98 Room Air 08/30/17 12:00 97.8 68 19 128/69 98 Intake and Output 08/31/17 09/01/17 19:00 07:00 Intake Total 50 ml Balance 50 ml IV Total 50 ml Laboratory Tests 08/31/17 05:50: White Blood Count 6.8, Red Blood Count 2.25L, Hemoglobin 7.6L, Hematocrit 22.0L , Mean Corpuscular Volume 98, Mean Corpuscular Hemoglobin 33.7H, Mean Corpuscular Hemoglobin Concent 34.5, Red Cell Distribution Width 17.8H, Platelet Count 150, Mean Platelet Volume 5.2L, Neutrophils (%) (Auto) , Lymphocytes (%) (Auto) , Monocytes (%) (Auto) , Eosinophils (%) (Auto) , Basophils (%) (Auto) , Differential Total Cells Counted 100, Neutrophils % ( Manual) 80H, Lymphocytes % (Manual) 6L, Monocytes % (Manual) 9, Eosinophils % ( Manual) 1, Basophils % (Manual) 0, Band Neutrophils 4, Platelet Estimate DecreasedL, Platelet Morphology Normal, Hypochromasia 1+, Anisocytosis 1+, Macrocytosis 1+, Sodium Level 136, Potassium Level 3.3L, Chloride Level 101, Carbon Dioxide Level 31, Anion Gap 4L, Blood Urea Nitrogen 15, Creatinine 3.0#H , Estimat Glomerular Filtration Rate 21.5, Glucose Level 107H, Uric Acid 3.2, Calcium Level 7.3L, Phosphorus Level 3.0, Magnesium Level 1.5L, Total Bilirubin 0.3, Aspartate Amino Transf (AST/SGOT) 37, Alanine Aminotransferase (ALT/SGPT) 27, Alkaline Phosphatase 82, C-Reactive Protein, Quantitative 10.3H, Total Protein 4.9L, Albumin 1.2L, Globulin 3.7, Albumin/Globulin Ratio 0.3L Height (Feet): 5 Height (Inches): 6.00 Weight (Pounds): 120 General Appearance: no apparent distress EENT: normal ENT inspection Neck: normal alignment Cardiovascular: normal peripheral pulses Abdomen: normal bowel sounds Edema: trace edema Nader Brumfield Aug 31, 2017 10:47
--- NOTE | 2017-08-31 10:52 | Infectious Diseases Prog Note ---
Assessment/Plan Assessment/Plan antibiotics : none A 1. fungal UTI s/p rx 2. rectal VRE colonization 3. renal failure 4. hepatitis C 5. GI bleeding 6. facial lymphoma 7. recent necrotizing fasciitis of right hip P 1. continue off antibiotics Subjective ROS Limited/Unobtainable: Yes Allergies: Coded Allergies: No Known Allergies (Unverified , 08/17/17) Objective Vital Signs Last 24 Hour Vital Signs Date Time Temp Pulse Resp B/P (MAP) Pulse Ox O2 Delivery O2 Flow Rate FiO2 08/31/17 08:00 98.1 73 20 117/67 96 Room Air 08/31/17 04:00 97.3 95 19 121/70 95 Room Air 08/31/17 00:00 Room Air 08/31/17 00:00 97.2 79 20 138/71 93 Room Air 08/30/17 20:00 Room Air 08/30/17 20:00 97.5 70 19 127/69 97 Room Air 08/30/17 15:50 97.7 71 19 123/73 98 Room Air 08/30/17 12:00 97.8 68 19 128/69 98 Height (Feet): 5 Height (Inches): 6.00 Weight (Pounds): 120 Respiratory/Chest: lungs clear Cardiovascular: normal rate, regular rhythm, no gallop/murmur Abdomen: soft, non tender Extremities: no edema, other - right hip VAC, right IJ catheter Laboratory Tests Test 08/31/17 05:50 White Blood Count 6.8 K/UL (4.8-10.8) Red Blood Count 2.25 M/UL (4.70-6.10) L Hemoglobin 7.6 G/DL (14.2-18.0) L Hematocrit 22.0 % (42.0-52.0) L Mean Corpuscular Volume 98 FL (80-99) Mean Corpuscular Hemoglobin 33.7 PG (27.0-31.0) H Mean Corpuscular Hemoglobin Concent 34.5 G/DL (32.0-36.0) Red Cell Distribution Width 17.8 % (11.6-14.8) H Platelet Count 150 K/UL (150-450) Mean Platelet Volume 5.2 FL (6.5-10.1) L Neutrophils (%) (Auto) % (45.0-75.0) Lymphocytes (%) (Auto) % (20.0-45.0) Monocytes (%) (Auto) % (1.0-10.0) Eosinophils (%) (Auto) % (0.0-3.0) Basophils (%) (Auto) % (0.0-2.0) Differential Total Cells Counted 100 Neutrophils % (Manual) 80 % (45-75) H Lymphocytes % (Manual) 6 % (20-45) L Monocytes % (Manual) 9 % (1-10) Eosinophils % (Manual) 1 % (0-3) Basophils % (Manual) 0 % (0-2) Band Neutrophils 4 % (0-8) Platelet Estimate Decreased L Platelet Morphology Normal Hypochromasia 1+ Anisocytosis 1+ Macrocytosis 1+ Sodium Level 136 MMOL/L (136-145) Potassium Level 3.3 MMOL/L (3.5-5.1) L Chloride Level 101 MMOL/L (98-107) Carbon Dioxide Level 31 MMOL/L (21-32) Anion Gap 4 mmol/L (5-15) L Blood Urea Nitrogen 15 mg/dL (7-18) Creatinine 3.0 MG/DL (0.55-1.30) #H Estimat Glomerular Filtration Rate 21.5 mL/min (>60) Glucose Level 107 MG/DL (74-106) H Uric Acid 3.2 MG/DL (2.6-7.2) Calcium Level 7.3 MG/DL (8.5-10.1) L Phosphorus Level 3.0 MG/DL (2.5-4.9) Magnesium Level 1.5 MG/DL (1.8-2.4) L Total Bilirubin 0.3 MG/DL (0.2-1.0) Aspartate Amino Transf (AST/SGOT) 37 U/L (15-37) Alanine Aminotransferase (ALT/SGPT) 27 U/L (12-78) Alkaline Phosphatase 82 U/L (46-116) C-Reactive Protein, Quantitative 10.3 mg/dL (0.00-0.90) H Total Protein 4.9 G/DL (6.4-8.2) L Albumin 1.2 G/DL (3.4-5.0) L Globulin 3.7 g/dL Albumin/Globulin Ratio 0.3 (1.0-2.7) L MINDI,SHAKUNTALA Aug 31, 2017 10:52
--- NOTE | 2017-08-31 10:55 | General Surgery Progress Note ---
General Surgery-Progress Note Subjective Procedure Performed Wound VAC change for large right hip wound Additional Comments doing well. wants to go home. VAC functional and with serous output. wound looks okay. no issues. Objective Last 24 Hour Vital Signs Date Time Temp Pulse Resp B/P (MAP) Pulse Ox O2 Delivery O2 Flow Rate FiO2 08/31/17 08:00 98.1 73 20 117/67 96 Room Air 08/31/17 04:00 97.3 95 19 121/70 95 Room Air 08/31/17 00:00 Room Air 08/31/17 00:00 97.2 79 20 138/71 93 Room Air 08/30/17 20:00 Room Air 08/30/17 20:00 97.5 70 19 127/69 97 Room Air 08/30/17 15:50 97.7 71 19 123/73 98 Room Air 08/30/17 12:00 97.8 68 19 128/69 98 I&O Intake and Output 08/31/17 09/01/17 19:00 07:00 Intake Total 50 ml Balance 50 ml IV Total 50 ml Drains: wound vac Cardiovascular: RSR Respiratory: clear Abdomen: soft, non-tender, present bowel sounds Extremities: no tenderness Laboratory Tests Test 08/31/17 05:50 White Blood Count 6.8 K/UL (4.8-10.8) Red Blood Count 2.25 M/UL (4.70-6.10) L Hemoglobin 7.6 G/DL (14.2-18.0) L Hematocrit 22.0 % (42.0-52.0) L Mean Corpuscular Volume 98 FL (80-99) Mean Corpuscular Hemoglobin 33.7 PG (27.0-31.0) H Mean Corpuscular Hemoglobin Concent 34.5 G/DL (32.0-36.0) Red Cell Distribution Width 17.8 % (11.6-14.8) H Platelet Count 150 K/UL (150-450) Mean Platelet Volume 5.2 FL (6.5-10.1) L Neutrophils (%) (Auto) % (45.0-75.0) Lymphocytes (%) (Auto) % (20.0-45.0) Monocytes (%) (Auto) % (1.0-10.0) Eosinophils (%) (Auto) % (0.0-3.0) Basophils (%) (Auto) % (0.0-2.0) Differential Total Cells Counted 100 Neutrophils % (Manual) 80 % (45-75) H Lymphocytes % (Manual) 6 % (20-45) L Monocytes % (Manual) 9 % (1-10) Eosinophils % (Manual) 1 % (0-3) Basophils % (Manual) 0 % (0-2) Band Neutrophils 4 % (0-8) Platelet Estimate Decreased L Platelet Morphology Normal Hypochromasia 1+ Anisocytosis 1+ Macrocytosis 1+ Sodium Level 136 MMOL/L (136-145) Potassium Level 3.3 MMOL/L (3.5-5.1) L Chloride Level 101 MMOL/L (98-107) Carbon Dioxide Level 31 MMOL/L (21-32) Anion Gap 4 mmol/L (5-15) L Blood Urea Nitrogen 15 mg/dL (7-18) Creatinine 3.0 MG/DL (0.55-1.30) #H Estimat Glomerular Filtration Rate 21.5 mL/min (>60) Glucose Level 107 MG/DL (74-106) H Uric Acid 3.2 MG/DL (2.6-7.2) Calcium Level 7.3 MG/DL (8.5-10.1) L Phosphorus Level 3.0 MG/DL (2.5-4.9) Magnesium Level 1.5 MG/DL (1.8-2.4) L Total Bilirubin 0.3 MG/DL (0.2-1.0) Aspartate Amino Transf (AST/SGOT) 37 U/L (15-37) Alanine Aminotransferase (ALT/SGPT) 27 U/L (12-78) Alkaline Phosphatase 82 U/L (46-116) C-Reactive Protein, Quantitative 10.3 mg/dL (0.00-0.90) H Total Protein 4.9 G/DL (6.4-8.2) L Albumin 1.2 G/DL (3.4-5.0) L Globulin 3.7 g/dL Albumin/Globulin Ratio 0.3 (1.0-2.7) L Plan Problems: (1) Wound, open, hip or thigh Assessment & Plan: 62M here for medical evaluation and management. has large right lateral hip wound after episode of soft tissue infection requiring large debridement. wound has been managed at outside facility and will be managed by surgery while in hospital. good granulation tissue over large area of debridement with last VAC change no tissues currently needing debridement.. no signs of active infection. recovering -keep wound clean. continue with VAC q3days at 100mmHg. -next planned change Sunday 09/02 -will monitor wound with VAC changes. -will do debridement as necessary. -as nutritional status improves will be ready for skin graft but not sure when this will be. needs more protein and caloric intake. thank you for this consultation and allowing me to participate in patients care. will follow with Mauricio Abel Aug 31, 2017 10:55
[2017-08-31 11:45] VITALS: BP 110/69
--- NOTE | 2017-08-31 11:48 | General Progress Note ---
Assessment/Plan Problem List: (1) Altered level of consciousness ICD Codes: R40.4 - Transient alteration of awareness SNOMED: 3494262 (2) Acute renal failure ICD Codes: N17.9 - Acute kidney failure, unspecified SNOMED: 50176782 (3) Dehydration ICD Codes: E86.0 - Dehydration SNOMED: 55233784 (4) Anemia ICD Codes: D64.9 - Anemia, unspecified SNOMED: 182748474 (5) Lymphoma ICD Codes: C85.90 - Non-Hodgkin lymphoma, unspecified, unspecified site SNOMED: 685322699 (6) Malnutrition ICD Codes: E46 - Unspecified protein-calorie malnutrition SNOMED: 05748812 (7) Hypothyroid ICD Codes: E03.9 - Hypothyroidism, unspecified SNOMED: 06265356 Status: progressing Assessment/Plan wound care per id reviewed meds sepsis improving ams lymphoma Subjective ROS Limited/Unobtainable: Yes Allergies: Coded Allergies: No Known Allergies (Unverified , 08/17/17) Objective Last 24 Hour Vital Signs Date Time Temp Pulse Resp B/P (MAP) Pulse Ox O2 Delivery O2 Flow Rate FiO2 08/31/17 11:45 97.9 76 20 110/69 93 Room Air 08/31/17 08:00 98.1 73 20 117/67 96 Room Air 08/31/17 04:00 97.3 95 19 121/70 95 Room Air 08/31/17 00:00 Room Air 08/31/17 00:00 97.2 79 20 138/71 93 Room Air 08/30/17 20:00 Room Air 08/30/17 20:00 97.5 70 19 127/69 97 Room Air 08/30/17 15:50 97.7 71 19 123/73 98 Room Air 08/30/17 12:00 97.8 68 19 128/69 98 Intake and Output 08/31/17 09/01/17 19:00 07:00 Intake Total 50 ml Balance 50 ml IV Total 50 ml Laboratory Tests 08/31/17 05:50: White Blood Count 6.8, Red Blood Count 2.25L, Hemoglobin 7.6L, Hematocrit 22.0L , Mean Corpuscular Volume 98, Mean Corpuscular Hemoglobin 33.7H, Mean Corpuscular Hemoglobin Concent 34.5, Red Cell Distribution Width 17.8H, Platelet Count 150, Mean Platelet Volume 5.2L, Neutrophils (%) (Auto) , Lymphocytes (%) (Auto) , Monocytes (%) (Auto) , Eosinophils (%) (Auto) , Basophils (%) (Auto) , Differential Total Cells Counted 100, Neutrophils % ( Manual) 80H, Lymphocytes % (Manual) 6L, Monocytes % (Manual) 9, Eosinophils % ( Manual) 1, Basophils % (Manual) 0, Band Neutrophils 4, Platelet Estimate DecreasedL, Platelet Morphology Normal, Hypochromasia 1+, Anisocytosis 1+, Macrocytosis 1+, Sodium Level 136, Potassium Level 3.3L, Chloride Level 101, Carbon Dioxide Level 31, Anion Gap 4L, Blood Urea Nitrogen 15, Creatinine 3.0#H , Estimat Glomerular Filtration Rate 21.5, Glucose Level 107H, Uric Acid 3.2, Calcium Level 7.3L, Phosphorus Level 3.0, Magnesium Level 1.5L, Total Bilirubin 0.3, Aspartate Amino Transf (AST/SGOT) 37, Alanine Aminotransferase (ALT/SGPT) 27, Alkaline Phosphatase 82, C-Reactive Protein, Quantitative 10.3H, Total Protein 4.9L, Albumin 1.2L, Globulin 3.7, Albumin/Globulin Ratio 0.3L Height (Feet): 5 Height (Inches): 6.00 Weight (Pounds): 120 Neck: supple Cardiovascular: normal rate Respiratory/Chest: lungs clear Abdomen: soft Fern Stafford MD Aug 31, 2017 11:48
--- NOTE | 2017-08-31 13:05 | Pulmonology Progress Note ---
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) severe protein calorie malnutrition hepatitis C hx of smoking PLAN OF CARE MS floor CT head no acute findings neuro follows MRI brain no acute IC pathology seizure precautions continue Keppra EEG abnormal with generalized slowing, but no definite epileptiform activity O2 HHN prn ECHO with pEF to the extent visualized nephro follows HD as per nephro , new onset monitor renal parameters, lytes, correct as needed renal US revealed bilateral echogenic kidneys c/w medical renal disease ID follows s/p rx for fungal UTI observe off abx surgery follows wound vac changed 08/29 last time, wound VAC functional and clean per surgery no need for debridement , no signs of active infection anemia workup, likely 2 to chemo , monitor counts and transfuse prn required prior blood transfusion, needs 1 u PRBC today initially NPO NG tube for meds s/p EGD due to hematemesis with findings of gastritis, severe friable oozing blood from distal esophagus, most probably from chemo. PPI and Carafate gastric biopsy c/w chronic mild gastritis, no Helicobacter passed swallow eval, but did not eat because it was painful s/p PEG 08/30 strict aspiration/reflux precautions GT feeding, tolerates dietary recommendations implemented pain management bowel regimen PT/OT DVT prophayxlis replace K and Mg today dc plan for Saturday with services case discussed and evaluated by supervising physician Subjective Allergies: Coded Allergies: No Known Allergies (Unverified , 08/17/17) Subjective tolerates TF afebrile wound VAC changed 08/29 HH down -7.03/07 low K and Mg Objective Last 24 Hour Vital Signs Date Time Temp Pulse Resp B/P (MAP) Pulse Ox O2 Delivery O2 Flow Rate FiO2 08/31/17 11:45 97.9 76 20 110/69 93 Room Air 08/31/17 08:00 98.1 73 20 117/67 96 Room Air 08/31/17 04:00 97.3 95 19 121/70 95 Room Air 08/31/17 00:00 Room Air 08/31/17 00:00 97.2 79 20 138/71 93 Room Air 08/30/17 20:00 Room Air 08/30/17 20:00 97.5 70 19 127/69 97 Room Air 08/30/17 15:50 97.7 71 19 123/73 98 Room Air Intake and Output 08/31/17 09/01/17 19:00 07:00 Intake Total 50 ml Balance 50 ml IV Total 50 ml Objective General Appearance: no acute distress, cachetic, awake, alert, responsive HEENT: other - R facial changes Respiratory/Chest: chest wall non-tender, lungs clear, no respiratory distress Cardiovascular: normal peripheral pulses, normal rate, no JVD, other - R chest PAC Abdomen: normal bowel sounds, soft, non tender, non distended, other - G tube Skin: large wound R lateral hip with wound VAC, anterior chest and upper arm multiple tattoos Neurologic/Psychiatric: abnormal gait, alert, responsive Musculoskeletal: atrophy - BLE Laboratory Tests 08/31/17 05:50: White Blood Count 6.8, Red Blood Count 2.25L, Hemoglobin 7.6L, Hematocrit 22.0L , Mean Corpuscular Volume 98, Mean Corpuscular Hemoglobin 33.7H, Mean Corpuscular Hemoglobin Concent 34.5, Red Cell Distribution Width 17.8H, Platelet Count 150, Mean Platelet Volume 5.2L, Neutrophils (%) (Auto) , Lymphocytes (%) (Auto) , Monocytes (%) (Auto) , Eosinophils (%) (Auto) , Basophils (%) (Auto) , Differential Total Cells Counted 100, Neutrophils % ( Manual) 80H, Lymphocytes % (Manual) 6L, Monocytes % (Manual) 9, Eosinophils % ( Manual) 1, Basophils % (Manual) 0, Band Neutrophils 4, Platelet Estimate DecreasedL, Platelet Morphology Normal, Hypochromasia 1+, Anisocytosis 1+, Macrocytosis 1+, Sodium Level 136, Potassium Level 3.3L, Chloride Level 101, Carbon Dioxide Level 31, Anion Gap 4L, Blood Urea Nitrogen 15, Creatinine 3.0#H , Estimat Glomerular Filtration Rate 21.5, Glucose Level 107H, Uric Acid 3.2, Calcium Level 7.3L, Phosphorus Level 3.0, Magnesium Level 1.5L, Total Bilirubin 0.3, Aspartate Amino Transf (AST/SGOT) 37, Alanine Aminotransferase (ALT/SGPT) 27, Alkaline Phosphatase 82, C-Reactive Protein, Quantitative 10.3H, Total Protein 4.9L, Albumin 1.2L, Globulin 3.7, Albumin/Globulin Ratio 0.3L Current Medications Medications (Trade) Dose Ordered Sig/Srini Route PRN Reason Start Time Stop Time Status Last Admin Dose Admin Acetaminophen (Tylenol) 650 mg Q4H PRN ORAL fever 08/23/17 18:10 09/16/17 18:09 Chlorhexidine Gluconate (Sandra-Hex 2%) 1 applic DAILY@2000 TOPIC 08/23/17 20:00 09/17/17 19:59 08/30/17 21:28 Clonidine HCl (Catapres) 0.1 mg Q4H PRN GT SBP > 160 08/23/17 18:00 09/16/17 21:59 Dextrose 1,000 ml @ 50 mls/hr Q20H IV 08/23/17 18:10 09/19/17 18:09 08/31/17 05:18 Dextrose (Dextrose 50%) STAT PRN IV Hypoglycemia 08/23/17 18:10 09/16/17 18:09 Levetiracetam 100 ml @ 400 mls/hr Q12HR IVPB 08/23/17 21:00 09/18/17 13:29 08/31/17 08:14 Levothyroxine Sodium (Synthroid) 75 mcg ACBREAKFAST GT 08/24/17 06:30 09/21/17 06:29 08/31/17 06:32 Morphine Sulfate (Morphine Sulfate) 2 mg Q4H PRN IVP For Pain 08/25/17 12:45 09/01/17 12:44 08/31/17 11:56 Ondansetron HCl (Zofran) 4 mg Q6H PRN IVP Nausea & Vomiting 08/23/17 18:10 09/16/17 18:09 08/25/17 18:10 Pantoprazole (Protonix) 40 mg EVERY 12 HOURS IVP 08/23/17 21:00 09/20/17 20:59 08/31/17 08:05 Polyethylene Glycol (Miralax) 17 gm HSPRN PRN GT Constipation 08/23/17 18:10 09/21/17 18:09 Potassium Chloride (K-Dur) 20 meq DAILY NG 08/30/17 09:00 09/29/17 08:59 08/31/17 08:05 Sucralfate (Carafate) 1 gm FOUR TIMES A DAY ORAL 08/23/17 18:00 09/20/17 12:59 08/31/17 08:05 [facility]Estefania NP Aug 31, 2017 13:05
[2017-08-31 16:00] VITALS: BP 135/74
--- NOTE | 2017-08-31 18:09 | General Progress Note ---
Assessment/Plan Assessment/Plan Assessment - lymphoma - malnutrition - s/p PEG - anemia - UGIB - HCV (+) Recommendations. - Continue TF - PPI - Elevate HOB - GT care - follow labs Subjective Allergies: Coded Allergies: No Known Allergies (Unverified , 08/17/17) Subjective s/p PEG yesterday started on TF tolerating TF Objective Last 24 Hour Vital Signs Date Time Temp Pulse Resp B/P (MAP) Pulse Ox O2 Delivery O2 Flow Rate FiO2 08/31/17 16:00 98.1 84 19 135/74 96 Room Air 08/31/17 11:45 97.9 76 20 110/69 93 Room Air 08/31/17 08:00 98.1 73 20 117/67 96 Room Air 08/31/17 04:00 97.3 95 19 121/70 95 Room Air 08/31/17 00:00 Room Air 08/31/17 00:00 97.2 79 20 138/71 93 Room Air 08/30/17 20:00 Room Air 08/30/17 20:00 97.5 70 19 127/69 97 Room Air Intake and Output 08/31/17 09/01/17 19:00 07:00 Intake Total 50 ml Balance 50 ml IV Total 50 ml Laboratory Tests 08/31/17 05:50: White Blood Count 6.8, Red Blood Count 2.25L, Hemoglobin 7.6L, Hematocrit 22.0L , Mean Corpuscular Volume 98, Mean Corpuscular Hemoglobin 33.7H, Mean Corpuscular Hemoglobin Concent 34.5, Red Cell Distribution Width 17.8H, Platelet Count 150, Mean Platelet Volume 5.2L, Neutrophils (%) (Auto) , Lymphocytes (%) (Auto) , Monocytes (%) (Auto) , Eosinophils (%) (Auto) , Basophils (%) (Auto) , Differential Total Cells Counted 100, Neutrophils % ( Manual) 80H, Lymphocytes % (Manual) 6L, Monocytes % (Manual) 9, Eosinophils % ( Manual) 1, Basophils % (Manual) 0, Band Neutrophils 4, Platelet Estimate DecreasedL, Platelet Morphology Normal, Hypochromasia 1+, Anisocytosis 1+, Macrocytosis 1+, Sodium Level 136, Potassium Level 3.3L, Chloride Level 101, Carbon Dioxide Level 31, Anion Gap 4L, Blood Urea Nitrogen 15, Creatinine 3.0#H , Estimat Glomerular Filtration Rate 21.5, Glucose Level 107H, Uric Acid 3.2, Calcium Level 7.3L, Phosphorus Level 3.0, Magnesium Level 1.5L, Total Bilirubin 0.3, Aspartate Amino Transf (AST/SGOT) 37, Alanine Aminotransferase (ALT/SGPT) 27, Alkaline Phosphatase 82, C-Reactive Protein, Quantitative 10.3H, Total Protein 4.9L, Albumin 1.2L, Globulin 3.7, Albumin/Globulin Ratio 0.3L Height (Feet): 5 Height (Inches): 6.00 Weight (Pounds): 120 Objective Thin man NCAT supple CTA RRR soft NT ND, (+) GT (R) hip wound no edema IVANIA ALCALA Aug 31, 2017 18:09
[2017-08-31 20:00] VITALS: BP 129/78
[2017-08-31] MEDS: Dyna-Hex 2% Top Sol 2oz TOPIC SCH (20:26)
--- NOTE | 2017-08-31 23:22 | Cardiology Progress Note ---
Assessment/Plan Assessment/Plan 1. Abnormal electrocardiogram with primary T-wave abnormality.1st and 3rd trop were negative and second one 0.7. Due to renal failure and sepsis.Echocardiogram Nl EF. No chest pain or SOB. 2. Metabolic acidosis Due to renal failure and sepsis 3. BNP of more than 5000 possibly due to renal failure and volume overload. 4. Renal failure. S/P Tray catheter and HD per Dr. Blakely Subjective Cardiovascular: Reports: no symptoms Respiratory: Reports: no symptoms Gastrointestinal/Abdominal: Reports: no symptoms Genitourinary: Reports: no symptoms Subjective Sinus rhythm at 90. Objective Last 24 Hour Vital Signs Date Time Temp Pulse Resp B/P (MAP) Pulse Ox O2 Delivery O2 Flow Rate FiO2 08/31/17 20:00 97.9 90 20 129/78 98 08/31/17 16:00 98.1 84 19 135/74 96 Room Air 08/31/17 11:45 97.9 76 20 110/69 93 Room Air 08/31/17 08:00 98.1 73 20 117/67 96 Room Air 08/31/17 04:00 97.3 95 19 121/70 95 Room Air 08/31/17 00:00 Room Air 08/31/17 00:00 97.2 79 20 138/71 93 Room Air Neurologic: abnormal gait Intake and Output 08/31/17 09/01/17 19:00 07:00 Intake Total 1095 ml 200 ml Output Total 1100 ml Balance -5 ml 200 ml Free Water 200 ml IV Total 100 ml 200 ml Tube Feeding 520 ml Blood Product 275 ml Output Urine Total 1100 ml 2D Echo: LVEF, normal RVSP Laboratory Tests Test 08/31/17 05:50 White Blood Count 6.8 K/UL (4.8-10.8) Red Blood Count 2.25 M/UL (4.70-6.10) L Hemoglobin 7.6 G/DL (14.2-18.0) L Hematocrit 22.0 % (42.0-52.0) L Mean Corpuscular Volume 98 FL (80-99) Mean Corpuscular Hemoglobin 33.7 PG (27.0-31.0) H Mean Corpuscular Hemoglobin Concent 34.5 G/DL (32.0-36.0) Red Cell Distribution Width 17.8 % (11.6-14.8) H Platelet Count 150 K/UL (150-450) Mean Platelet Volume 5.2 FL (6.5-10.1) L Neutrophils (%) (Auto) % (45.0-75.0) Lymphocytes (%) (Auto) % (20.0-45.0) Monocytes (%) (Auto) % (1.0-10.0) Eosinophils (%) (Auto) % (0.0-3.0) Basophils (%) (Auto) % (0.0-2.0) Differential Total Cells Counted 100 Neutrophils % (Manual) 80 % (45-75) H Lymphocytes % (Manual) 6 % (20-45) L Monocytes % (Manual) 9 % (1-10) Eosinophils % (Manual) 1 % (0-3) Basophils % (Manual) 0 % (0-2) Band Neutrophils 4 % (0-8) Platelet Estimate Decreased L Platelet Morphology Normal Hypochromasia 1+ Anisocytosis 1+ Macrocytosis 1+ Sodium Level 136 MMOL/L (136-145) Potassium Level 3.3 MMOL/L (3.5-5.1) L Chloride Level 101 MMOL/L (98-107) Carbon Dioxide Level 31 MMOL/L (21-32) Anion Gap 4 mmol/L (5-15) L Blood Urea Nitrogen 15 mg/dL (7-18) Creatinine 3.0 MG/DL (0.55-1.30) #H Estimat Glomerular Filtration Rate 21.5 mL/min (>60) Glucose Level 107 MG/DL (74-106) H Uric Acid 3.2 MG/DL (2.6-7.2) Calcium Level 7.3 MG/DL (8.5-10.1) L Phosphorus Level 3.0 MG/DL (2.5-4.9) Magnesium Level 1.5 MG/DL (1.8-2.4) L Total Bilirubin 0.3 MG/DL (0.2-1.0) Aspartate Amino Transf (AST/SGOT) 37 U/L (15-37) Alanine Aminotransferase (ALT/SGPT) 27 U/L (12-78) Alkaline Phosphatase 82 U/L (46-116) C-Reactive Protein, Quantitative 10.3 mg/dL (0.00-0.90) H Total Protein 4.9 G/DL (6.4-8.2) L Albumin 1.2 G/DL (3.4-5.0) L Globulin 3.7 g/dL Albumin/Globulin Ratio 0.3 (1.0-2.7) L Objective HEAD AND NECK: No JVD. Right face scar unchanged LUNGS: Clear. CARDIOVASCULAR: Regular. S1 and S2 with no gallop, his chest has a right- sided port. ABDOMEN: Soft.S/P PEG EXTREMITIES: No edema. NICOLÁS VANCE Aug 31, 2017 23:22
[2017-09-01] VITALS: BP 114/73
[2017-09-01] MEDS: Morphine Sulfate 2mg/ml Inj IVP PRN ×2 (03:07→06:55)
[2017-09-01 04:00] VITALS: BP 120/76
[2017-09-01 07:47] LABS: BASOPHILS % (AUTO) 0.2 % (0.0-2.0); EOSINOPHILS % (AUTO) 0.5 % (0.0-3.0); LYMPHOCYTES % (AUTO) 7.9 % (20.0-45.0); MEAN CORPUSCULAR HEMOGLOBIN 32.7 PG (27.0-31.0); MEAN CORPUSCULAR HGB CONC 34.1 G/DL (32.0-36.0); MEAN CORPUSCULAR VOLUME 96 FL (80-99); MEAN PLATELET VOLUME 5.5 FL (6.5-10.1); MONOCYTES % (AUTO) 6.9 % (1.0-10.0); NEUTROPHILS % (AUTO) 84.5 % (45.0-75.0); PLATELET COUNT 153 K/UL (150-450); RED CELL DISTRIBUTION WIDTH 17.4 % (11.6-14.8); WHITE BLOOD COUNT 8.3 K/UL (4.8-10.8)
[2017-09-01 08:15] LABS: ANION GAP 5 mmol/L (5-15); CALCIUM 7.2 MG/DL (8.5-10.1); CARBON DIOXIDE 28 MMOL/L (21-32); CHLORIDE 101 MMOL/L (98-107); CREATININE 3.3 MG/DL (0.55-1.30); GLOMERULAR FILTRATION RATE 19.2 mL/min (>60); POTASSIUM 3.7 MMOL/L (3.5-5.1); SODIUM 134 MMOL/L (136-145)
[2017-09-01] MEDS: Pantoprazole Inj IVP SCH (08:53)
[2017-09-01] MEDS: Sucralfate 1gm tab ORAL SCH (08:53)
[2017-09-01] MEDS: levETIRAcetam 1,000mg/NS100ml 100 ML IVPB SCH (08:54)
[2017-09-01 08:56] VITALS: BP 138/81
[2017-09-01] MEDS ORDERED: Norco 10mg/325mg tab GT PRN (09:00)
--- NOTE | 2017-09-01 10:03 | Pulmonology Progress Note ---
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) severe protein calorie malnutrition hepatitis C hx of smoking PLAN OF CARE MS floor CT head no acute findings neuro follows MRI brain no acute IC pathology seizure precautions continue Keppra EEG abnormal with generalized slowing, but no definite epileptiform activity O2 HHN prn ECHO with pEF to the extent visualized nephro follows HD as per nephro , new onset monitor renal parameters, lytes, correct as needed renal US revealed bilateral echogenic kidneys c/w medical renal disease ID follows s/p Rx for fungal UTI observe off abx surgery follows wound vac changed 08/29 last time, wound VAC functional and clean per surgery no need for debridement , no signs of active infection anemia workup, likely 2 to chemo , monitor counts and transfuse prn required prior blood transfusion, HH stable after another unit of PRBC 08/31 initially NPO NG tube for meds s/p EGD due to hematemesis with findings of gastritis, severe friable oozing blood from distal esophagus, most probably from chemo. PPI and Carafate gastric biopsy c/w chronic mild gastritis, no Helicobacter passed swallow eval, but did not eat because it was painful s/p PEG 08/30 strict aspiration/reflux precautions GT feeding, tolerates dietary recommendations implemented pain management bowel regimen PT/OT DVT prophayxlis K and Mg stable after replacement dc plan for Saturday with HH services case discussed and evaluated by supervising physician Subjective Allergies: Coded Allergies: No Known Allergies (Unverified , 08/17/17) Subjective tolerates TF afebrile wound VAC changed 08/29 s/p 1 u PRBC 08/31, HH better Objective Last 24 Hour Vital Signs Date Time Temp Pulse Resp B/P (MAP) Pulse Ox O2 Delivery O2 Flow Rate FiO2 09/01/17 08:56 97.8 78 20 138/81 97 Room Air 09/01/17 04:00 97.8 85 20 120/76 96 09/01/17 00:00 97.9 95 20 114/73 94 08/31/17 20:00 97.9 90 20 129/78 98 08/31/17 16:00 98.1 84 19 135/74 96 Room Air 08/31/17 11:45 97.9 76 20 110/69 93 Room Air Intake and Output 09/01/17 09/02/17 19:00 07:00 Intake Total 50 ml Output Total 100 ml Balance -50 ml IV Total 50 ml Drainage Total 100 ml Objective General Appearance: no acute distress, cachetic, awake, alert, responsive HEENT: other - R facial changes Respiratory/Chest: chest wall non-tender, lungs clear, no respiratory distress Cardiovascular: normal peripheral pulses, normal rate, no JVD, other - R chest PAC Abdomen: normal bowel sounds, soft, non tender, non distended, other - G tube Skin: large wound R lateral hip with wound VAC, anterior chest and upper arm multiple tattoos Neurologic/Psychiatric: abnormal gait, alert, responsive Musculoskeletal: atrophy - BLE Laboratory Tests 09/01/17 06:15: White Blood Count 8.3, Red Blood Count 2.60L, Hemoglobin 8.5L, Hematocrit 24.9L , Mean Corpuscular Volume 96, Mean Corpuscular Hemoglobin 32.7H, Mean Corpuscular Hemoglobin Concent 34.1, Red Cell Distribution Width 17.4H, Platelet Count 153, Mean Platelet Volume 5.5L, Neutrophils (%) (Auto) 84.5H, Lymphocytes (%) (Auto) 7.9L, Monocytes (%) (Auto) 6.9, Eosinophils (%) (Auto) 0.5, Basophils (%) (Auto) 0.2, Sodium Level 134L, Potassium Level 3.7, Chloride Level 101, Carbon Dioxide Level 28, Anion Gap 5, Blood Urea Nitrogen 25H, Creatinine 3.3H, Estimat Glomerular Filtration Rate 19.2, Glucose Level 93, Calcium Level 7.2L, Magnesium Level 2.0 Current Medications Medications (Trade) Dose Ordered Sig/Srini Route PRN Reason Start Time Stop Time Status Last Admin Dose Admin Acetaminophen (Tylenol) 650 mg Q4H PRN ORAL fever 08/23/17 18:10 09/16/17 18:09 Acetaminophen/ Hydrocodone Bitart ([place] 10/325) 1 ea Q4H PRN GT Breakthrough Pain 09/01/17 09:00 09/08/17 08:59 Chlorhexidine Gluconate (Sandra-Hex 2%) 1 applic DAILY@2000 TOPIC 08/23/17 20:00 09/17/17 19:59 08/31/17 20:26 Clonidine HCl (Catapres) 0.1 mg Q4H PRN GT SBP > 160 08/23/17 18:00 09/16/17 21:59 Dextrose 1,000 ml @ 50 mls/hr Q20H IV 08/23/17 18:10 09/19/17 18:09 09/01/17 03:06 Dextrose (Dextrose 50%) STAT PRN IV Hypoglycemia 08/23/17 18:10 09/16/17 18:09 Levetiracetam 100 ml @ 400 mls/hr Q12HR IVPB 08/23/17 21:00 09/18/17 13:29 09/01/17 08:54 Levothyroxine Sodium (Synthroid) 75 mcg ACBREAKFAST GT 08/24/17 06:30 09/21/17 06:29 09/01/17 06:14 Morphine Sulfate (Morphine Sulfate) 2 mg Q4H PRN IVP For Pain 08/31/17 16:00 09/07/17 15:59 09/01/17 06:55 Ondansetron HCl (Zofran) 4 mg Q6H PRN IVP Nausea & Vomiting 08/23/17 18:10 09/16/17 18:09 08/25/17 18:10 Pantoprazole (Protonix) 40 mg EVERY 12 HOURS IVP 08/23/17 21:00 09/20/17 20:59 09/01/17 08:53 Polyethylene Glycol (Miralax) 17 gm HSPRN PRN GT Constipation 08/23/17 18:10 09/21/17 18:09 Potassium Chloride (K-Dur) 20 meq DAILY NG 08/30/17 09:00 09/29/17 08:59 09/01/17 08:53 Sucralfate (Carafate) 1 gm FOUR TIMES A DAY ORAL 08/23/17 18:00 09/20/17 12:59 09/01/17 08:53 Ildefonso ([facility]),Estefania BOOKER Sep 01, 2017 10:03
--- NOTE | 2017-09-01 10:58 | Nephrology Progress Note ---
Assessment/Plan Problem List: (1) Acute renal failure (ARF) (2) Malnutrition (3) UGI bleed Assessment: worsening anemia Assessment acute toxic metabolic encephalopathy r/o CVA acute renal failure with possible dehydration Wasted and sever malnutrition Coffee ground vomiting metabolic acidosis e/lyte imbalance intermittent jerks , r/o seizure disorder anemia R facial lymphoma ( on chemo) R left thigh necrotizing fasciitis ( with wound vac) severe protein calorie malnutrition elevated TSH hx of smoking Plan Plan: arrange OP HD re eval meds stool c dif Has PEG now HD last 08/29 K and Phos supplement as needed Consider transfusion when needed start EPO kidney DANI : Bilateral echogenic slightly small kidneys, consistent with medical renal disease Negative for hydronephrosis. 2D Echo- Left ventricular ejection fraction estimated to be grossly normal. Avoid nephrotoxics- Subjective ROS Limited/Unobtainable: No Constitutional: Reports: malaise, weakness Objective Objective Last 24 Hour Vital Signs Date Time Temp Pulse Resp B/P (MAP) Pulse Ox O2 Delivery O2 Flow Rate FiO2 09/01/17 08:56 97.8 78 20 138/81 97 Room Air 09/01/17 04:00 97.8 85 20 120/76 96 09/01/17 00:00 97.9 95 20 114/73 94 08/31/17 20:00 97.9 90 20 129/78 98 08/31/17 16:00 98.1 84 19 135/74 96 Room Air 08/31/17 11:45 97.9 76 20 110/69 93 Room Air Intake and Output 09/01/17 09/02/17 19:00 07:00 Intake Total 50 ml Output Total 100 ml Balance -50 ml IV Total 50 ml Drainage Total 100 ml # Bowel Movements 2 Laboratory Tests 09/01/17 06:15: White Blood Count 8.3, Red Blood Count 2.60L, Hemoglobin 8.5L, Hematocrit 24.9L , Mean Corpuscular Volume 96, Mean Corpuscular Hemoglobin 32.7H, Mean Corpuscular Hemoglobin Concent 34.1, Red Cell Distribution Width 17.4H, Platelet Count 153, Mean Platelet Volume 5.5L, Neutrophils (%) (Auto) 84.5H, Lymphocytes (%) (Auto) 7.9L, Monocytes (%) (Auto) 6.9, Eosinophils (%) (Auto) 0.5, Basophils (%) (Auto) 0.2, Sodium Level 134L, Potassium Level 3.7, Chloride Level 101, Carbon Dioxide Level 28, Anion Gap 5, Blood Urea Nitrogen 25H, Creatinine 3.3H, Estimat Glomerular Filtration Rate 19.2, Glucose Level 93, Calcium Level 7.2L, Magnesium Level 2.0 Height (Feet): 5 Height (Inches): 6.00 Weight (Pounds): 120 General Appearance: no apparent distress, lethargic Cardiovascular: regular rhythm Respiratory/Chest: decreased breath sounds Abdomen: soft Objective PE not changed RYAN MCCLOUD Sep 01, 2017 10:58
[2017-09-01 11:53] VITALS: BP 124/73
[2017-09-01] MEDS: Hydromorphone 0.5mg/0.5ml inj IVP PRN ×3 (12:31→22:01)
[2017-09-01] MEDS: D5NS 1,000 ML IV SCH (12:31)
--- NOTE | 2017-09-01 14:01 | Infectious Diseases Prog Note ---
Assessment/Plan Assessment/Plan A: Recent necrotizing fascitis of R hip ? 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 Encephalopathy Hepatitis C Cellular immune deficiency, low CD4 GI bleeding, source esophagus Sinusitis P: observe off antibiotic will have PEG placement today Subjective ROS Limited/Unobtainable: Yes Gastrointestinal/Abdominal: Reports: diarrhea Allergies: Coded Allergies: No Known Allergies (Unverified , 08/17/17) Objective Vital Signs Last 24 Hour Vital Signs Date Time Temp Pulse Resp B/P (MAP) Pulse Ox O2 Delivery O2 Flow Rate FiO2 09/01/17 11:53 97.5 81 20 124/73 96 09/01/17 08:56 97.8 78 20 138/81 97 Room Air 09/01/17 04:00 97.8 85 20 120/76 96 09/01/17 00:00 97.9 95 20 114/73 94 08/31/17 20:00 97.9 90 20 129/78 98 08/31/17 16:00 98.1 84 19 135/74 96 Room Air Height (Feet): 5 Height (Inches): 6.00 Weight (Pounds): 120 General Appearance: no acute distress HEENT: mucous membranes moist Respiratory/Chest: lungs clear Cardiovascular: normal rate, pacemaker/AICD - RIJ Tray, other Abdomen: soft, non tender, other - GT feeding Extremities: no edema Neurologic/Psychiatric: other - sleeping Laboratory Tests Test 09/01/17 06:15 White Blood Count 8.3 K/UL (4.8-10.8) Red Blood Count 2.60 M/UL (4.70-6.10) L Hemoglobin 8.5 G/DL (14.2-18.0) L Hematocrit 24.9 % (42.0-52.0) L Mean Corpuscular Volume 96 FL (80-99) Mean Corpuscular Hemoglobin 32.7 PG (27.0-31.0) H Mean Corpuscular Hemoglobin Concent 34.1 G/DL (32.0-36.0) Red Cell Distribution Width 17.4 % (11.6-14.8) H Platelet Count 153 K/UL (150-450) Mean Platelet Volume 5.5 FL (6.5-10.1) L Neutrophils (%) (Auto) 84.5 % (45.0-75.0) H Lymphocytes (%) (Auto) 7.9 % (20.0-45.0) L Monocytes (%) (Auto) 6.9 % (1.0-10.0) Eosinophils (%) (Auto) 0.5 % (0.0-3.0) Basophils (%) (Auto) 0.2 % (0.0-2.0) Sodium Level 134 MMOL/L (136-145) L Potassium Level 3.7 MMOL/L (3.5-5.1) Chloride Level 101 MMOL/L (98-107) Carbon Dioxide Level 28 MMOL/L (21-32) Anion Gap 5 mmol/L (5-15) Blood Urea Nitrogen 25 mg/dL (7-18) H Creatinine 3.3 MG/DL (0.55-1.30) H Estimat Glomerular Filtration Rate 19.2 mL/min (>60) Glucose Level 93 MG/DL (74-106) Calcium Level 7.2 MG/DL (8.5-10.1) L Magnesium Level 2.0 MG/DL (1.8-2.4) Current Medications Medications (Trade) Dose Ordered Sig/Srini Route PRN Reason Start Time Stop Time Status Last Admin Dose Admin Acetaminophen (Tylenol) 650 mg Q4H PRN ORAL fever 08/23/17 18:10 09/16/17 18:09 Chlorhexidine Gluconate (Sandra-Hex 2%) 1 applic DAILY@2000 TOPIC 08/23/17 20:00 09/17/17 19:59 08/31/17 20:26 Dextrose (Dextrose 50%) STAT PRN IV Hypoglycemia 08/23/17 18:10 09/16/17 18:09 Dextrose/Sodium Chloride 1,000 ml @ 50 mls/hr Q20H IV 09/01/17 12:00 10/01/17 11:59 09/01/17 12:31 Epoetin Yovani (Procrit (for ESRD on dialysis)) 10,000 units SAT-SAT-SAT SUBQ 09/02/17 21:00 10/02/17 20:59 Hydromorphone HCl (Dilaudid) 0.5 mg Q4H PRN IVP For Pain 09/01/17 12:00 09/08/17 11:59 09/01/17 12:31 Levetiracetam (Keppra) 750 mg Q12HR NG 09/01/17 21:00 10/01/17 20:59 Levothyroxine Sodium (Synthroid) 75 mcg ACBREAKFAST GT 08/24/17 06:30 09/21/17 06:29 09/01/17 06:14 Ondansetron HCl (Zofran) 4 mg Q6H PRN IVP Nausea & Vomiting 08/23/17 18:10 09/16/17 18:09 08/25/17 18:10 Polyethylene Glycol (Miralax) 17 gm HSPRN PRN GT Constipation 08/23/17 18:10 09/21/17 18:09 Potassium Chloride (K-Dur) 20 meq DAILY NG 08/30/17 09:00 09/29/17 08:59 09/01/17 08:53 Ranitidine HCl (Zantac) 150 mg TWICE A DAY GT 09/01/17 18:00 10/01/17 17:59 Tamsulosin HCl (Flomax) 0.4 mg BEDTIME ORAL 09/01/17 21:00 10/01/17 20:59 Tramadol HCl (Ultram) 50 mg Q6H PRN GT BREAKTHROUGH PAIN 09/01/17 12:00 09/08/17 11:59 TOYA ENGLISH Sep 01, 2017 14:01
--- NOTE | 2017-09-01 14:32 | General Progress Note ---
Assessment/Plan Assessment/Plan Assessment - lymphoma - malnutrition - s/p PEG - anemia - UGIB - HCV (+) - loose BM Recommendations. - Continue TF - PPI - Elevate HOB - GT care - follow labs - check C Diff Subjective Allergies: Coded Allergies: No Known Allergies (Unverified , 08/17/17) Subjective s/p PEG d/w RN some loose BM noted tolerating TF Objective Last 24 Hour Vital Signs Date Time Temp Pulse Resp B/P (MAP) Pulse Ox O2 Delivery O2 Flow Rate FiO2 09/01/17 11:53 97.5 81 20 124/73 96 09/01/17 08:56 97.8 78 20 138/81 97 Room Air 09/01/17 04:00 97.8 85 20 120/76 96 09/01/17 00:00 97.9 95 20 114/73 94 08/31/17 20:00 97.9 90 20 129/78 98 08/31/17 16:00 98.1 84 19 135/74 96 Room Air Intake and Output 09/01/17 09/02/17 19:00 07:00 Intake Total 50 ml Output Total 100 ml Balance -50 ml IV Total 50 ml Drainage Total 100 ml # Bowel Movements 2 Laboratory Tests 09/01/17 06:15: White Blood Count 8.3, Red Blood Count 2.60L, Hemoglobin 8.5L, Hematocrit 24.9L , Mean Corpuscular Volume 96, Mean Corpuscular Hemoglobin 32.7H, Mean Corpuscular Hemoglobin Concent 34.1, Red Cell Distribution Width 17.4H, Platelet Count 153, Mean Platelet Volume 5.5L, Neutrophils (%) (Auto) 84.5H, Lymphocytes (%) (Auto) 7.9L, Monocytes (%) (Auto) 6.9, Eosinophils (%) (Auto) 0.5, Basophils (%) (Auto) 0.2, Sodium Level 134L, Potassium Level 3.7, Chloride Level 101, Carbon Dioxide Level 28, Anion Gap 5, Blood Urea Nitrogen 25H, Creatinine 3.3H, Estimat Glomerular Filtration Rate 19.2, Glucose Level 93, Calcium Level 7.2L, Magnesium Level 2.0 Height (Feet): 5 Height (Inches): 6.00 Weight (Pounds): 120 Objective Thin man NCAT supple CTA RRR soft NT ND, (+) GT (R) hip wound no edema IVANIA ALCALA Sep 01, 2017 14:32
[2017-09-01] MEDS: traMADol 50mg tab GT PRN (15:48)
--- NOTE | 2017-09-01 15:51 | General Surgery Progress Note ---
General Surgery-Progress Note Subjective Procedure Performed Wound VAC change for large right hip wound Additional Comments no acute events. doing well. comfortable. wants to go home. had loose BM and VAC dressings soiled. Objective Last 24 Hour Vital Signs Date Time Temp Pulse Resp B/P (MAP) Pulse Ox O2 Delivery O2 Flow Rate FiO2 09/01/17 11:53 97.5 81 20 124/73 96 09/01/17 11:53 Room Air 09/01/17 08:56 97.8 78 20 138/81 97 Room Air 09/01/17 08:56 Room Air 09/01/17 04:00 97.8 85 20 120/76 96 09/01/17 00:00 97.9 95 20 114/73 94 08/31/17 20:00 97.9 90 20 129/78 98 08/31/17 16:00 98.1 84 19 135/74 96 Room Air I&O Intake and Output 09/01/17 09/02/17 19:00 07:00 Intake Total 50 ml Output Total 100 ml Balance -50 ml IV Total 50 ml Drainage Total 100 ml # Bowel Movements 2 Drains: wound vac Cardiovascular: RSR Respiratory: clear Abdomen: soft, non-tender, present bowel sounds Extremities: no tenderness Laboratory Tests Test 09/01/17 06:15 White Blood Count 8.3 K/UL (4.8-10.8) Red Blood Count 2.60 M/UL (4.70-6.10) L Hemoglobin 8.5 G/DL (14.2-18.0) L Hematocrit 24.9 % (42.0-52.0) L Mean Corpuscular Volume 96 FL (80-99) Mean Corpuscular Hemoglobin 32.7 PG (27.0-31.0) H Mean Corpuscular Hemoglobin Concent 34.1 G/DL (32.0-36.0) Red Cell Distribution Width 17.4 % (11.6-14.8) H Platelet Count 153 K/UL (150-450) Mean Platelet Volume 5.5 FL (6.5-10.1) L Neutrophils (%) (Auto) 84.5 % (45.0-75.0) H Lymphocytes (%) (Auto) 7.9 % (20.0-45.0) L Monocytes (%) (Auto) 6.9 % (1.0-10.0) Eosinophils (%) (Auto) 0.5 % (0.0-3.0) Basophils (%) (Auto) 0.2 % (0.0-2.0) Sodium Level 134 MMOL/L (136-145) L Potassium Level 3.7 MMOL/L (3.5-5.1) Chloride Level 101 MMOL/L (98-107) Carbon Dioxide Level 28 MMOL/L (21-32) Anion Gap 5 mmol/L (5-15) Blood Urea Nitrogen 25 mg/dL (7-18) H Creatinine 3.3 MG/DL (0.55-1.30) H Estimat Glomerular Filtration Rate 19.2 mL/min (>60) Glucose Level 93 MG/DL (74-106) Calcium Level 7.2 MG/DL (8.5-10.1) L Magnesium Level 2.0 MG/DL (1.8-2.4) Plan Problems: (1) Wound, open, hip or thigh Assessment & Plan: 62M here for medical evaluation and management. has large right lateral hip wound after episode of soft tissue infection requiring large debridement. wound has been managed at outside facility and will be managed by surgery while in hospital. good granulation tissue over large area of debridement with last VAC change no tissues currently needing debridement.. no signs of active infection. recovering -keep wound clean. continue with VAC q3days at 100mmHg. -next planned TODAY by wound nurse given soiled by BM. appreciate wound nurse assistance. -will monitor wound with VAC changes. -will do debridement as necessary. -as nutritional status improves will be ready for skin graft but not sure when this will be. needs more protein and caloric intake. thank you for this consultation and allowing me to participate in patients care. will follow with Mauricio Abel Sep 01, 2017 15:51
[2017-09-01 16:11] VITALS: BP 124/67
[2017-09-01 20:00] VITALS: BP 123/66
[2017-09-01] MEDS: levETIRAcetam 500mg/5ml Liquid NG SCH (20:52)
[2017-09-01] MEDS: Tamsulosin 0.4mg cap ORAL SCH (20:52)
[2017-09-01] MEDS: Dyna-Hex 2% Top Sol 2oz TOPIC SCH (20:52)
--- NOTE | 2017-09-01 22:01 | General Progress Note ---
Assessment/Plan Problem List: (1) Altered level of consciousness ICD Codes: R40.4 - Transient alteration of awareness SNOMED: 4028166 (2) Acute renal failure ICD Codes: N17.9 - Acute kidney failure, unspecified SNOMED: 04911874 (3) Dehydration ICD Codes: E86.0 - Dehydration SNOMED: 03629371 (4) Anemia ICD Codes: D64.9 - Anemia, unspecified SNOMED: 722925012 (5) Lymphoma ICD Codes: C85.90 - Non-Hodgkin lymphoma, unspecified, unspecified site SNOMED: 860382406 (6) Malnutrition ICD Codes: E46 - Unspecified protein-calorie malnutrition SNOMED: 16320741 (7) Hypothyroid ICD Codes: E03.9 - Hypothyroidism, unspecified SNOMED: 69352589 Status: progressing Assessment/Plan afebrile abx per id no acute events sepsis improving ams lymphoma Subjective ROS Limited/Unobtainable: Yes Allergies: Coded Allergies: No Known Allergies (Unverified , 08/17/17) Objective Last 24 Hour Vital Signs Date Time Temp Pulse Resp B/P (MAP) Pulse Ox O2 Delivery O2 Flow Rate FiO2 09/01/17 20:00 97.5 86 20 123/66 97 09/01/17 16:11 97.7 83 20 124/67 95 09/01/17 11:53 97.5 81 20 124/73 96 09/01/17 11:53 Room Air 09/01/17 08:56 97.8 78 20 138/81 97 Room Air 09/01/17 08:56 Room Air 09/01/17 04:00 97.8 85 20 120/76 96 09/01/17 00:00 97.9 95 20 114/73 94 Intake and Output 09/01/17 09/02/17 19:00 07:00 Intake Total 1150 ml 330 ml Output Total 1050 ml Balance 100 ml 330 ml Intake Oral 0 ml Free Water 80 ml 60 ml IV Total 350 ml 150 ml Tube Feeding 720 ml 120 ml Output Urine Total 950 ml Drainage Total 100 ml # Bowel Movements 4 1 Laboratory Tests 09/01/17 06:15: White Blood Count 8.3, Red Blood Count 2.60L, Hemoglobin 8.5L, Hematocrit 24.9L , Mean Corpuscular Volume 96, Mean Corpuscular Hemoglobin 32.7H, Mean Corpuscular Hemoglobin Concent 34.1, Red Cell Distribution Width 17.4H, Platelet Count 153, Mean Platelet Volume 5.5L, Neutrophils (%) (Auto) 84.5H, Lymphocytes (%) (Auto) 7.9L, Monocytes (%) (Auto) 6.9, Eosinophils (%) (Auto) 0.5, Basophils (%) (Auto) 0.2, Sodium Level 134L, Potassium Level 3.7, Chloride Level 101, Carbon Dioxide Level 28, Anion Gap 5, Blood Urea Nitrogen 25H, Creatinine 3.3H, Estimat Glomerular Filtration Rate 19.2, Glucose Level 93, Calcium Level 7.2L, Magnesium Level 2.0 Height (Feet): 5 Height (Inches): 6.00 Weight (Pounds): 120 Neck: supple Cardiovascular: normal rate Respiratory/Chest: lungs clear Fern Stafford MD Sep 01, 2017 22:01
--- NOTE | 2017-09-01 22:14 | General Progress Note ---
Assessment/Plan Assessment/Plan ASSESSMENT AND RECOMMENDATIONS: 1. Upper GI bleed, s/p egd. GI service following. Now with PEG 2. Facial lymphoma, status post chemotherapy with radiation. Currently cancer is in remission. Repeat CT of the head no evidence of malignancy. 3. Anemia secondary to chronic disease. Anemia workup has been reviewed. --> transfuse if hgb below 7 4. Anemia secondary to kidney disease. --> Nephrology service following. Continue dialysis 5. Altered mental status. Neurology service is evaluating the patient. 6. Necrotizing fasciitis, status post wound VAC and surgery, completed 2 weeks ago. --> continue wound care 7. Thrombocytopenia post surgical as well as due to underlying Hep C--> monitor closely. Improving 8. Hepatitis C Subjective Hematologic/Lymphatic: Reports: anemia Allergies: Coded Allergies: No Known Allergies (Unverified , 08/17/17) All Systems: reviewed and negative except above Subjective s/p one unit prbc Objective Last 24 Hour Vital Signs Date Time Temp Pulse Resp B/P (MAP) Pulse Ox O2 Delivery O2 Flow Rate FiO2 09/01/17 20:00 97.5 86 20 123/66 97 09/01/17 16:11 97.7 83 20 124/67 95 09/01/17 11:53 97.5 81 20 124/73 96 09/01/17 11:53 Room Air 09/01/17 08:56 97.8 78 20 138/81 97 Room Air 09/01/17 08:56 Room Air 09/01/17 04:00 97.8 85 20 120/76 96 09/01/17 00:00 97.9 95 20 114/73 94 Intake and Output 09/01/17 09/02/17 19:00 07:00 Intake Total 1150 ml 330 ml Output Total 1050 ml Balance 100 ml 330 ml Intake Oral 0 ml Free Water 80 ml 60 ml IV Total 350 ml 150 ml Tube Feeding 720 ml 120 ml Output Urine Total 950 ml Drainage Total 100 ml # Bowel Movements 4 1 Laboratory Tests 09/01/17 06:15: White Blood Count 8.3, Red Blood Count 2.60L, Hemoglobin 8.5L, Hematocrit 24.9L , Mean Corpuscular Volume 96, Mean Corpuscular Hemoglobin 32.7H, Mean Corpuscular Hemoglobin Concent 34.1, Red Cell Distribution Width 17.4H, Platelet Count 153, Mean Platelet Volume 5.5L, Neutrophils (%) (Auto) 84.5H, Lymphocytes (%) (Auto) 7.9L, Monocytes (%) (Auto) 6.9, Eosinophils (%) (Auto) 0.5, Basophils (%) (Auto) 0.2, Sodium Level 134L, Potassium Level 3.7, Chloride Level 101, Carbon Dioxide Level 28, Anion Gap 5, Blood Urea Nitrogen 25H, Creatinine 3.3H, Estimat Glomerular Filtration Rate 19.2, Glucose Level 93, Calcium Level 7.2L, Magnesium Level 2.0 Height (Feet): 5 Height (Inches): 6.00 Weight (Pounds): 120 General Appearance: no apparent distress EENT: normal ENT inspection Neck: normal alignment Cardiovascular: normal peripheral pulses Edema: mild edema, moderate edema Skin: normal pigmentation Nader Brumfield Sep 01, 2017 22:14
--- NOTE | 2017-09-01 23:29 | Wound Care Consultation ---
Wound Assessment Wound Assessment : Wound Present on Admission: Yes New Wound: No Status Change of Wound: No Wound Location Body Site Modif: right Wound Location Body Site: thigh Wound Type: other - open wound Ledy Test: Does not Ledy Wound Thickness: Full Thickness Wound Length: 28.0 Wound Width: 25.0 Wound Depth: 0.3 Percent of Wound [place]/Red: 100 Wound Drainage Description: Serosanguineous Wound Drainage Odor: None/Absent Wound General Appearance: Reddened, Draining, Muscle Visible Wound Comment Wound vac changed today. Applied 4 pieces of foam to cover the wound bed. Picture taken. wound bed with 100% beefy red granulating tissue. No s/s of infection noted at the site. will cont with wound vac therapy as ordered by DANIEL SPARKS RN Sep 01, 2017 23:29
[2017-09-02] VITALS: BP 113/70
[2017-09-02] MEDS: Hydromorphone 0.5mg/0.5ml inj IVP PRN ×4 (02:41→18:21)
[2017-09-02 04:00] VITALS: BP 121/74
[2017-09-02 07:17] LABS: BASOPHILS % (AUTO) 0.5 % (0.0-2.0); EOSINOPHILS % (AUTO) 0.8 % (0.0-3.0); LYMPHOCYTES % (AUTO) 7.7 % (20.0-45.0); MEAN CORPUSCULAR HEMOGLOBIN 31.7 PG (27.0-31.0); MEAN CORPUSCULAR HGB CONC 33.2 G/DL (32.0-36.0); MEAN CORPUSCULAR VOLUME 96 FL (80-99); MEAN PLATELET VOLUME 5.3 FL (6.5-10.1); MONOCYTES % (AUTO) 6.9 % (1.0-10.0); NEUTROPHILS % (AUTO) 84.2 % (45.0-75.0); PLATELET COUNT 191 K/UL (150-450); RED BLOOD COUNT 2.51 M/UL (4.70-6.10); RED CELL DISTRIBUTION WIDTH 17.5 % (11.6-14.8); WHITE BLOOD COUNT 7.9 K/UL (4.8-10.8)
[2017-09-02 07:50] LABS: ALANINE AMINOTRANSFERASE 20 U/L (12-78); ALBUMIN/GLOBULIN RATIO 0.3 (1.0-2.7); ANION GAP 5 mmol/L (5-15); ASPARTATE AMINO TRANSFERASE 31 U/L (15-37); CALCIUM 7.2 MG/DL (8.5-10.1); CARBON DIOXIDE 27 MMOL/L (21-32); CHLORIDE 105 MMOL/L (98-107); CREATININE 3.3 MG/DL (0.55-1.30); CRP QUANT 10.4 mg/dL (0.00-0.90); GLOMERULAR FILTRATION RATE 19.2 mL/min (>60); MAGNESIUM 1.8 MG/DL (1.8-2.4); PHOSPHORUS 1.9 MG/DL (2.5-4.9); POTASSIUM 3.6 MMOL/L (3.5-5.1); SODIUM 137 MMOL/L (136-145); THYROID STIMULATING HORMONE 6.575 uiU/mL (0.358-3.740); TOTAL PROTEIN 4.9 G/DL (6.4-8.2); URIC ACID 3.2 MG/DL (2.6-7.2)
[2017-09-02 08:15] VITALS: BP 119/71
[2017-09-02] MEDS: levETIRAcetam 500mg/5ml Liquid NG SCH ×2 (08:24→21:39)
[2017-09-02] MEDS: D5NS 1,000 ML IV SCH (08:25)
--- NOTE | 2017-09-02 10:33 | GI Progress Note ---
Assessment/Plan Problems: (1) Lymphoma ICD Codes: C85.90 - Non-Hodgkin lymphoma, unspecified, unspecified site SNOMED: 511573009 (2) Malnutrition ICD Codes: E46 - Unspecified protein-calorie malnutrition SNOMED: 19227806 (3) Anemia ICD Codes: D64.9 - Anemia, unspecified SNOMED: 738568955 (4) Anemia due to blood loss ICD Codes: D50.0 - Iron deficiency anemia secondary to blood loss (chronic) SNOMED: 088351127 (5) Dehydration ICD Codes: E86.0 - Dehydration SNOMED: 57900468 (6) UGI bleed ICD Codes: K92.2 - Gastrointestinal hemorrhage, unspecified SNOMED: 25162547 Status: stable Status Narrative Discussed with Dr. Kitchen. Assessment/Plan SUMMARY FINDINGS: 1. Severe friable oozing blood from distal esophagus, most probably from chemo. 2. Gastritis, status post biopsy. Follow up biopsy results >> unremarkable, negative for H. Pylori Hep C positive s/p PEG, some loose BM noted RECOMMENDATIONS: tolerating TF push PO ppi BID + Carafate monitor H&H, prn transfusion electrolyte correction abx fu OT eval fu labs Subjective Subjective limited Objective Last 24 Hour Vital Signs Date Time Temp Pulse Resp B/P (MAP) Pulse Ox O2 Delivery O2 Flow Rate FiO2 09/02/17 08:15 98.1 81 19 119/71 97 Room Air 09/02/17 04:00 97.5 90 20 121/74 97 09/02/17 04:00 97 Room Air 09/02/17 03:13 97.5 09/02/17 00:00 97 Room Air 09/02/17 00:00 97.5 93 20 113/70 97 09/01/17 20:00 97 Room Air 09/01/17 20:00 97.5 86 20 123/66 97 09/01/17 16:11 97.7 83 20 124/67 95 09/01/17 11:53 97.5 81 20 124/73 96 09/01/17 11:53 Room Air Laboratory Tests Test 09/02/17 04:00 White Blood Count 7.9 K/UL (4.8-10.8) Red Blood Count 2.51 M/UL (4.70-6.10) L Hemoglobin 8.0 G/DL (14.2-18.0) L Hematocrit 24.0 % (42.0-52.0) L Mean Corpuscular Volume 96 FL (80-99) Mean Corpuscular Hemoglobin 31.7 PG (27.0-31.0) H Mean Corpuscular Hemoglobin Concent 33.2 G/DL (32.0-36.0) Red Cell Distribution Width 17.5 % (11.6-14.8) H Platelet Count 191 K/UL (150-450) Mean Platelet Volume 5.3 FL (6.5-10.1) L Neutrophils (%) (Auto) 84.2 % (45.0-75.0) H Lymphocytes (%) (Auto) 7.7 % (20.0-45.0) L Monocytes (%) (Auto) 6.9 % (1.0-10.0) Eosinophils (%) (Auto) 0.8 % (0.0-3.0) Basophils (%) (Auto) 0.5 % (0.0-2.0) Sodium Level 137 MMOL/L (136-145) Potassium Level 3.6 MMOL/L (3.5-5.1) Chloride Level 105 MMOL/L (98-107) Carbon Dioxide Level 27 MMOL/L (21-32) Anion Gap 5 mmol/L (5-15) Blood Urea Nitrogen 31 mg/dL (7-18) H Creatinine 3.3 MG/DL (0.55-1.30) H Estimat Glomerular Filtration Rate 19.2 mL/min (>60) Glucose Level 111 MG/DL (74-106) H Uric Acid 3.2 MG/DL (2.6-7.2) Calcium Level 7.2 MG/DL (8.5-10.1) L Phosphorus Level 1.9 MG/DL (2.5-4.9) L Magnesium Level 1.8 MG/DL (1.8-2.4) Total Bilirubin 0.2 MG/DL (0.2-1.0) Gamma Glutamyl Transpeptidase 33 U/L (5-85) Aspartate Amino Transf (AST/SGOT) 31 U/L (15-37) Alanine Aminotransferase (ALT/SGPT) 20 U/L (12-78) Alkaline Phosphatase 93 U/L (46-116) C-Reactive Protein, Quantitative 10.4 mg/dL (0.00-0.90) H Pro-B-Type Natriuretic Peptide 3213 pg/mL (0-125) H Total Protein 4.9 G/DL (6.4-8.2) L Albumin 1.1 G/DL (3.4-5.0) L Globulin 3.8 g/dL Albumin/Globulin Ratio 0.3 (1.0-2.7) L Thyroid Stimulating Hormone (TSH) 6.575 uiU/mL (0.358-3.740) Height (Feet): 5 Height (Inches): 6.00 Weight (Pounds): 120 General Appearance: WD/WN, no apparent distress, alert Cardiovascular: normal rate Respiratory/Chest: normal breath sounds, no respiratory distress Abdominal Exam: normal bowel sounds, non tender, soft Extremities: non-tender Lou Jarquin N.P. Sep 02, 2017 10:33
[2017-09-02] MEDS ORDERED: Phospha 250 Neutral tab ORAL ONE (11:00)
[2017-09-02] MEDS ORDERED: Potassium Phosphate 20 MM in NS 275 ML IV ONE (12:00)
[2017-09-02 12:15] VITALS: BP 125/76
--- NOTE | 2017-09-02 13:35 | General Surgery Progress Note ---
General Surgery-Progress Note Subjective Procedure Performed Wound VAC change for large right hip wound Symptoms: improved Objective Last 24 Hour Vital Signs Date Time Temp Pulse Resp B/P (MAP) Pulse Ox O2 Delivery O2 Flow Rate FiO2 09/02/17 12:15 97.4 86 21 125/76 99 Room Air 09/02/17 08:15 98.1 81 19 119/71 97 Room Air 09/02/17 04:00 97.5 90 20 121/74 97 09/02/17 04:00 97 Room Air 09/02/17 03:13 97.5 09/02/17 00:00 97 Room Air 09/02/17 00:00 97.5 93 20 113/70 97 09/01/17 20:00 97 Room Air 09/01/17 20:00 97.5 86 20 123/66 97 09/01/17 16:11 97.7 83 20 124/67 95 I&O Intake and Output 09/02/17 09/03/17 19:00 07:00 # Bowel Movements 3 Dressing: dry Wound: clean Drains: wound vac Cardiovascular: RSR Respiratory: clear Abdomen: soft, non-tender, present bowel sounds Extremities: no tenderness Laboratory Tests Test 09/02/17 04:00 White Blood Count 7.9 K/UL (4.8-10.8) Red Blood Count 2.51 M/UL (4.70-6.10) L Hemoglobin 8.0 G/DL (14.2-18.0) L Hematocrit 24.0 % (42.0-52.0) L Mean Corpuscular Volume 96 FL (80-99) Mean Corpuscular Hemoglobin 31.7 PG (27.0-31.0) H Mean Corpuscular Hemoglobin Concent 33.2 G/DL (32.0-36.0) Red Cell Distribution Width 17.5 % (11.6-14.8) H Platelet Count 191 K/UL (150-450) Mean Platelet Volume 5.3 FL (6.5-10.1) L Neutrophils (%) (Auto) 84.2 % (45.0-75.0) H Lymphocytes (%) (Auto) 7.7 % (20.0-45.0) L Monocytes (%) (Auto) 6.9 % (1.0-10.0) Eosinophils (%) (Auto) 0.8 % (0.0-3.0) Basophils (%) (Auto) 0.5 % (0.0-2.0) Sodium Level 137 MMOL/L (136-145) Potassium Level 3.6 MMOL/L (3.5-5.1) Chloride Level 105 MMOL/L (98-107) Carbon Dioxide Level 27 MMOL/L (21-32) Anion Gap 5 mmol/L (5-15) Blood Urea Nitrogen 31 mg/dL (7-18) H Creatinine 3.3 MG/DL (0.55-1.30) H Estimat Glomerular Filtration Rate 19.2 mL/min (>60) Glucose Level 111 MG/DL (74-106) H Uric Acid 3.2 MG/DL (2.6-7.2) Calcium Level 7.2 MG/DL (8.5-10.1) L Phosphorus Level 1.9 MG/DL (2.5-4.9) L Magnesium Level 1.8 MG/DL (1.8-2.4) Total Bilirubin 0.2 MG/DL (0.2-1.0) Gamma Glutamyl Transpeptidase 33 U/L (5-85) Aspartate Amino Transf (AST/SGOT) 31 U/L (15-37) Alanine Aminotransferase (ALT/SGPT) 20 U/L (12-78) Alkaline Phosphatase 93 U/L (46-116) C-Reactive Protein, Quantitative 10.4 mg/dL (0.00-0.90) H Pro-B-Type Natriuretic Peptide 3213 pg/mL (0-125) H Total Protein 4.9 G/DL (6.4-8.2) L Albumin 1.1 G/DL (3.4-5.0) L Globulin 3.8 g/dL Albumin/Globulin Ratio 0.3 (1.0-2.7) L Thyroid Stimulating Hormone (TSH) 6.575 uiU/mL (0.358-3.740) Plan Problems: (1) Wound, open, hip or thigh Assessment & Plan: 62M here for medical evaluation and management. has large right lateral hip wound after episode of soft tissue infection requiring large debridement. wound has been managed at outside facility and will be managed by surgery while in hospital. good granulation tissue over large area of debridement with last VAC change no tissues currently needing debridement.. no signs of active infection. recovering okay to d/c from surgical standpoint -keep wound clean. -okay to change to wet to dry dressings for discharge if portable wound VAC cannot be obtained. -as nutritional status improves will be ready for skin graft but not sure when this will be. needs more protein and caloric intake. thank you for this consultation and allowing me to participate in patients care. Mauricio Mistry Sep 02, 2017 13:35
--- NOTE | 2017-09-02 13:40 | Nephrology Progress Note ---
Assessment/Plan Problem List: (1) Acute renal failure (ARF) (2) Malnutrition (3) UGI bleed Assessment: worsening anemia Assessment Cr stable 3.3 acute toxic metabolic encephalopathy r/o CVA acute renal failure with possible dehydration Wasted and sever malnutrition Coffee ground vomiting metabolic acidosis e/lyte imbalance intermittent jerks , r/o seizure disorder anemia R facial lymphoma ( on chemo) R left thigh necrotizing fasciitis ( with wound vac) severe protein calorie malnutrition elevated TSH hx of smoking Plan Plan: Cab DC anf follow up renal parameters as out patient. If need for dialysis arise then arrange for OP HD. re eval meds stool c dif Has PEG now HD last 08/29 K and Phos supplement as needed Consider transfusion when needed start EPO kidney DANI : Bilateral echogenic slightly small kidneys, consistent with medical renal disease Negative for hydronephrosis. 2D Echo- Left ventricular ejection fraction estimated to be grossly normal. Avoid nephrotoxics- Subjective ROS Limited/Unobtainable: No Constitutional: Reports: malaise Objective Objective Last 24 Hour Vital Signs Date Time Temp Pulse Resp B/P (MAP) Pulse Ox O2 Delivery O2 Flow Rate FiO2 09/02/17 12:15 97.4 86 21 125/76 99 Room Air 09/02/17 08:15 98.1 81 19 119/71 97 Room Air 09/02/17 04:00 97.5 90 20 121/74 97 09/02/17 04:00 97 Room Air 09/02/17 03:13 97.5 09/02/17 00:00 97 Room Air 09/02/17 00:00 97.5 93 20 113/70 97 09/01/17 20:00 97 Room Air 09/01/17 20:00 97.5 86 20 123/66 97 09/01/17 16:11 97.7 83 20 124/67 95 Intake and Output 09/02/17 09/03/17 19:00 07:00 # Bowel Movements 3 Current Medications Medications (Trade) Dose Ordered Sig/Srini Route PRN Reason Start Time Stop Time Status Last Admin Dose Admin Acetaminophen (Tylenol) 650 mg Q4H PRN ORAL fever 08/23/17 18:10 09/16/17 18:09 Chlorhexidine Gluconate (Sandra-Hex 2%) 1 applic DAILY@1999 TOPIC 08/23/17 20:00 09/17/17 19:59 09/01/17 20:52 Dextrose (Dextrose 50%) STAT PRN IV Hypoglycemia 08/23/17 18:10 09/16/17 18:09 Dextrose/Sodium Chloride 1,000 ml @ 50 mls/hr Q20H IV 09/01/17 12:00 10/01/17 11:59 09/02/17 08:25 Epoetin Yovani (Procrit (for ESRD on dialysis)) 10,000 units SAT-SAT-SAT SUBQ 09/02/17 21:00 10/02/17 20:59 Hydromorphone HCl (Dilaudid) 0.5 mg Q4H PRN IVP For Pain 09/01/17 12:00 09/08/17 11:59 09/02/17 12:46 Levetiracetam (Keppra) 750 mg Q12HR NG 09/01/17 21:00 10/01/17 20:59 09/02/17 08:24 Levothyroxine Sodium (Synthroid) 75 mcg ACBREAKFAST GT 08/24/17 06:30 09/21/17 06:29 09/02/17 05:37 Ondansetron HCl (Zofran) 4 mg Q6H PRN IVP Nausea & Vomiting 08/23/17 18:10 09/16/17 18:09 08/25/17 18:10 Polyethylene Glycol (Miralax) 17 gm HSPRN PRN GT Constipation 08/23/17 18:10 09/21/17 18:09 Potassium Chloride (K-Dur) 20 meq DAILY NG 08/30/17 09:00 09/29/17 08:59 09/02/17 11:19 Ranitidine HCl (Zantac) 150 mg TWICE A DAY GT 09/01/17 18:00 10/01/17 17:59 09/02/17 08:24 Tamsulosin HCl (Flomax) 0.4 mg BEDTIME ORAL 09/01/17 21:00 10/01/17 20:59 09/01/17 20:52 Tramadol HCl (Ultram) 50 mg Q6H PRN GT BREAKTHROUGH PAIN 09/01/17 12:00 09/08/17 11:59 09/01/17 15:48 Laboratory Tests 09/02/17 04:00: White Blood Count 7.9, Red Blood Count 2.51L, Hemoglobin 8.0L, Hematocrit 24.0L , Mean Corpuscular Volume 96, Mean Corpuscular Hemoglobin 31.7H, Mean Corpuscular Hemoglobin Concent 33.2, Red Cell Distribution Width 17.5H, Platelet Count 191, Mean Platelet Volume 5.3L, Neutrophils (%) (Auto) 84.2H, Lymphocytes (%) (Auto) 7.7L, Monocytes (%) (Auto) 6.9, Eosinophils (%) (Auto) 0.8, Basophils (%) (Auto) 0.5, Sodium Level 137, Potassium Level 3.6, Chloride Level 105, Carbon Dioxide Level 27, Anion Gap 5, Blood Urea Nitrogen 31H, Creatinine 3.3H, Estimat Glomerular Filtration Rate 19.2, Glucose Level 111H, Uric Acid 3.2, Calcium Level 7.2L, Phosphorus Level 1.9L, Magnesium Level 1.8, Total Bilirubin 0.2, Gamma Glutamyl Transpeptidase 33, Aspartate Amino Transf ( AST/SGOT) 31, Alanine Aminotransferase (ALT/SGPT) 20, Alkaline Phosphatase 93, C -Reactive Protein, Quantitative 10.4H, Pro-B-Type Natriuretic Peptide 3213H, Total Protein 4.9L, Albumin 1.1L, Globulin 3.8, Albumin/Globulin Ratio 0.3L, Thyroid Stimulating Hormone (TSH) 6.575H Height (Feet): 5 Height (Inches): 6.00 Weight (Pounds): 120 General Appearance: no apparent distress Objective PE not changed RYAN MCCLOUD Sep 02, 2017 13:40
--- NOTE | 2017-09-02 13:42 | Infectious Diseases Prog Note ---
Assessment/Plan Assessment/Plan A: Recent necrotizing fascitis of R hip ? 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 Encephalopathy Hepatitis C Cellular immune deficiency, low CD4 GI bleeding, source esophagus Sinusitis P: observe off antibiotic Subjective ROS Limited/Unobtainable: Yes Allergies: Coded Allergies: No Known Allergies (Unverified , 08/17/17) Objective Vital Signs Last 24 Hour Vital Signs Date Time Temp Pulse Resp B/P (MAP) Pulse Ox O2 Delivery O2 Flow Rate FiO2 09/02/17 12:15 97.4 86 21 125/76 99 Room Air 09/02/17 08:15 98.1 81 19 119/71 97 Room Air 09/02/17 04:00 97.5 90 20 121/74 97 09/02/17 04:00 97 Room Air 09/02/17 03:13 97.5 09/02/17 00:00 97 Room Air 09/02/17 00:00 97.5 93 20 113/70 97 09/01/17 20:00 97 Room Air 09/01/17 20:00 97.5 86 20 123/66 97 09/01/17 16:11 97.7 83 20 124/67 95 Height (Feet): 5 Height (Inches): 6.00 Weight (Pounds): 120 General Appearance: no acute distress HEENT: mucous membranes moist Respiratory/Chest: lungs clear Cardiovascular: normal rate Abdomen: soft, non tender, other - GT feeding Extremities: no edema Neurologic/Psychiatric: other - sleeping Laboratory Tests Test 09/02/17 04:00 White Blood Count 7.9 K/UL (4.8-10.8) Red Blood Count 2.51 M/UL (4.70-6.10) L Hemoglobin 8.0 G/DL (14.2-18.0) L Hematocrit 24.0 % (42.0-52.0) L Mean Corpuscular Volume 96 FL (80-99) Mean Corpuscular Hemoglobin 31.7 PG (27.0-31.0) H Mean Corpuscular Hemoglobin Concent 33.2 G/DL (32.0-36.0) Red Cell Distribution Width 17.5 % (11.6-14.8) H Platelet Count 191 K/UL (150-450) Mean Platelet Volume 5.3 FL (6.5-10.1) L Neutrophils (%) (Auto) 84.2 % (45.0-75.0) H Lymphocytes (%) (Auto) 7.7 % (20.0-45.0) L Monocytes (%) (Auto) 6.9 % (1.0-10.0) Eosinophils (%) (Auto) 0.8 % (0.0-3.0) Basophils (%) (Auto) 0.5 % (0.0-2.0) Sodium Level 137 MMOL/L (136-145) Potassium Level 3.6 MMOL/L (3.5-5.1) Chloride Level 105 MMOL/L (98-107) Carbon Dioxide Level 27 MMOL/L (21-32) Anion Gap 5 mmol/L (5-15) Blood Urea Nitrogen 31 mg/dL (7-18) H Creatinine 3.3 MG/DL (0.55-1.30) H Estimat Glomerular Filtration Rate 19.2 mL/min (>60) Glucose Level 111 MG/DL (74-106) H Uric Acid 3.2 MG/DL (2.6-7.2) Calcium Level 7.2 MG/DL (8.5-10.1) L Phosphorus Level 1.9 MG/DL (2.5-4.9) L Magnesium Level 1.8 MG/DL (1.8-2.4) Total Bilirubin 0.2 MG/DL (0.2-1.0) Gamma Glutamyl Transpeptidase 33 U/L (5-85) Aspartate Amino Transf (AST/SGOT) 31 U/L (15-37) Alanine Aminotransferase (ALT/SGPT) 20 U/L (12-78) Alkaline Phosphatase 93 U/L (46-116) C-Reactive Protein, Quantitative 10.4 mg/dL (0.00-0.90) H Pro-B-Type Natriuretic Peptide 3213 pg/mL (0-125) H Total Protein 4.9 G/DL (6.4-8.2) L Albumin 1.1 G/DL (3.4-5.0) L Globulin 3.8 g/dL Albumin/Globulin Ratio 0.3 (1.0-2.7) L Thyroid Stimulating Hormone (TSH) 6.575 uiU/mL (0.358-3.740) Current Medications Medications (Trade) Dose Ordered Sig/Srini Route PRN Reason Start Time Stop Time Status Last Admin Dose Admin Acetaminophen (Tylenol) 650 mg Q4H PRN ORAL fever 08/23/17 18:10 09/16/17 18:09 Chlorhexidine Gluconate (Sandra-Hex 2%) 1 applic DAILY@2000 TOPIC 08/23/17 20:00 09/17/17 19:59 09/01/17 20:52 Dextrose (Dextrose 50%) STAT PRN IV Hypoglycemia 08/23/17 18:10 09/16/17 18:09 Dextrose/Sodium Chloride 1,000 ml @ 50 mls/hr Q20H IV 09/01/17 12:00 10/01/17 11:59 09/02/17 08:25 Epoetin Yovani (Procrit (for ESRD on dialysis)) 10,000 units SAT-SAT-SAT SUBQ 09/02/17 21:00 10/02/17 20:59 Hydromorphone HCl (Dilaudid) 0.5 mg Q4H PRN IVP For Pain 09/01/17 12:00 09/08/17 11:59 09/02/17 12:46 Levetiracetam (Keppra) 750 mg Q12HR NG 09/01/17 21:00 10/01/17 20:59 09/02/17 08:24 Levothyroxine Sodium (Synthroid) 75 mcg ACBREAKFAST GT 08/24/17 06:30 09/21/17 06:29 09/02/17 05:37 Ondansetron HCl (Zofran) 4 mg Q6H PRN IVP Nausea & Vomiting 08/23/17 18:10 09/16/17 18:09 08/25/17 18:10 Polyethylene Glycol (Miralax) 17 gm HSPRN PRN GT Constipation 08/23/17 18:10 09/21/17 18:09 Potassium Chloride (K-Dur) 20 meq DAILY NG 08/30/17 09:00 09/29/17 08:59 09/02/17 11:19 Ranitidine HCl (Zantac) 150 mg TWICE A DAY GT 09/01/17 18:00 10/01/17 17:59 09/02/17 08:24 Tamsulosin HCl (Flomax) 0.4 mg BEDTIME ORAL 09/01/17 21:00 10/01/17 20:59 09/01/17 20:52 Tramadol HCl (Ultram) 50 mg Q6H PRN GT BREAKTHROUGH PAIN 09/01/17 12:00 09/08/17 11:59 09/01/17 15:48 TOYA ENGLISH Sep 02, 2017 13:42
--- NOTE | 2017-09-02 15:05 | General Progress Note ---
Assessment/Plan Assessment/Plan ASSESSMENT AND RECOMMENDATIONS: 1. Upper GI bleed, s/p egd. GI service following. Now with PEG tube 2. Facial lymphoma, status post chemotherapy with radiation. Currently cancer is in remission. Repeat CT of the head no evidence of malignancy. 3. Anemia secondary to chronic disease. Anemia workup has been reviewed. --> transfuse if hgb below 7 4. Anemia secondary to kidney disease. --> Nephrology service following. Continue dialysis 5. Altered mental status. Neurology service is evaluating the patient. 6. Necrotizing fasciitis, status post wound VAC and surgery, completed 2 weeks ago. --> continue wound care 7. Thrombocytopenia post surgical as well as due to underlying Hep C--> monitor closely. Has now normalized 8. Hepatitis C Subjective Allergies: Coded Allergies: No Known Allergies (Unverified , 08/17/17) All Systems: reviewed and negative except above Subjective No events overnight Objective Last 24 Hour Vital Signs Date Time Temp Pulse Resp B/P (MAP) Pulse Ox O2 Delivery O2 Flow Rate FiO2 09/02/17 12:15 97.4 86 21 125/76 99 Room Air 09/02/17 08:15 98.1 81 19 119/71 97 Room Air 09/02/17 04:00 97.5 90 20 121/74 97 09/02/17 04:00 97 Room Air 09/02/17 03:13 97.5 09/02/17 00:00 97 Room Air 09/02/17 00:00 97.5 93 20 113/70 97 09/01/17 20:00 97 Room Air 09/01/17 20:00 97.5 86 20 123/66 97 09/01/17 16:11 97.7 83 20 124/67 95 Intake and Output 09/02/17 09/03/17 19:00 07:00 Intake Total 480 ml Output Total 140 ml Balance 340 ml Free Water 60 ml Tube Feeding 420 ml Drainage Total 140 ml # Bowel Movements 3 Laboratory Tests 09/02/17 04:00: White Blood Count 7.9, Red Blood Count 2.51L, Hemoglobin 8.0L, Hematocrit 24.0L , Mean Corpuscular Volume 96, Mean Corpuscular Hemoglobin 31.7H, Mean Corpuscular Hemoglobin Concent 33.2, Red Cell Distribution Width 17.5H, Platelet Count 191, Mean Platelet Volume 5.3L, Neutrophils (%) (Auto) 84.2H, Lymphocytes (%) (Auto) 7.7L, Monocytes (%) (Auto) 6.9, Eosinophils (%) (Auto) 0.8, Basophils (%) (Auto) 0.5, Sodium Level 137, Potassium Level 3.6, Chloride Level 105, Carbon Dioxide Level 27, Anion Gap 5, Blood Urea Nitrogen 31H, Creatinine 3.3H, Estimat Glomerular Filtration Rate 19.2, Glucose Level 111H, Uric Acid 3.2, Calcium Level 7.2L, Phosphorus Level 1.9L, Magnesium Level 1.8, Total Bilirubin 0.2, Gamma Glutamyl Transpeptidase 33, Aspartate Amino Transf ( AST/SGOT) 31, Alanine Aminotransferase (ALT/SGPT) 20, Alkaline Phosphatase 93, C -Reactive Protein, Quantitative 10.4H, Pro-B-Type Natriuretic Peptide 3213H, Total Protein 4.9L, Albumin 1.1L, Globulin 3.8, Albumin/Globulin Ratio 0.3L, Thyroid Stimulating Hormone (TSH) 6.575H Height (Feet): 5 Height (Inches): 6.00 Weight (Pounds): 120 General Appearance: no apparent distress EENT: normal ENT inspection Neck: normal alignment Cardiovascular: normal peripheral pulses Abdomen: non tender Neurologic: cotton factor II-XII grossly normal Skin: normal pigmentation Nader Brumfield Sep 02, 2017 15:05
[2017-09-02] MEDS ORDERED: KEPPRA750 MG GT (15:53)
[2017-09-02] MEDS ORDERED: LEVOTHYROXINE75 MCG GT (15:54)
[2017-09-02] MEDS ORDERED: ZANTAC150 MG GT (15:55)
[2017-09-02] MEDS ORDERED: TAMSULOSIN HCL0.4 MG GT (15:56)
[2017-09-02] MEDS ORDERED: TRAMADOL HCL50 MG ORAL (15:56)
[2017-09-02] MEDS ORDERED: Heplock Flush 100 units/ml 3 ml syr INJ ONE (16:00)
[2017-09-02] MEDS ORDERED: D5NS 1000ml IV ONE (16:05)
[2017-09-02 16:15] VITALS: BP 119/65
--- NOTE | 2017-09-02 19:38 | Cardiology Progress Note ---
Assessment/Plan Assessment/Plan 1. Abnormal electrocardiogram with primary T-wave abnormality. Cardiac enzymes are negative. Echocardiogram shows no WMA with normal LVEF. No chest pain or SOB at this time. 2. BNP of more than 5000 possibly due to renal failure and volume overload. Subjective Subjective Sinus rhythm at 96. Objective Last 24 Hour Vital Signs Date Time Temp Pulse Resp B/P (MAP) Pulse Ox O2 Delivery O2 Flow Rate FiO2 09/02/17 16:15 97.7 96 20 119/65 97 Room Air 09/02/17 12:15 97.4 86 21 125/76 99 Room Air 09/02/17 08:15 98.1 81 19 119/71 97 Room Air 09/02/17 04:00 97.5 90 20 121/74 97 09/02/17 04:00 97 Room Air 09/02/17 03:13 97.5 09/02/17 00:00 97 Room Air 09/02/17 00:00 97.5 93 20 113/70 97 09/01/17 20:00 97 Room Air 09/01/17 20:00 97.5 86 20 123/66 97 Intake and Output 09/02/17 09/03/17 19:00 07:00 Intake Total 480 ml Output Total 590 ml Balance -110 ml Free Water 60 ml Tube Feeding 420 ml Output Urine Total 450 ml Drainage Total 140 ml # Bowel Movements 8 2D Echo: TDS, normal LVEF, RVSP 15 mmhg, Grade I LVDD Laboratory Tests Test 09/02/17 04:00 White Blood Count 7.9 K/UL (4.8-10.8) Red Blood Count 2.51 M/UL (4.70-6.10) L Hemoglobin 8.0 G/DL (14.2-18.0) L Hematocrit 24.0 % (42.0-52.0) L Mean Corpuscular Volume 96 FL (80-99) Mean Corpuscular Hemoglobin 31.7 PG (27.0-31.0) H Mean Corpuscular Hemoglobin Concent 33.2 G/DL (32.0-36.0) Red Cell Distribution Width 17.5 % (11.6-14.8) H Platelet Count 191 K/UL (150-450) Mean Platelet Volume 5.3 FL (6.5-10.1) L Neutrophils (%) (Auto) 84.2 % (45.0-75.0) H Lymphocytes (%) (Auto) 7.7 % (20.0-45.0) L Monocytes (%) (Auto) 6.9 % (1.0-10.0) Eosinophils (%) (Auto) 0.8 % (0.0-3.0) Basophils (%) (Auto) 0.5 % (0.0-2.0) Sodium Level 137 MMOL/L (136-145) Potassium Level 3.6 MMOL/L (3.5-5.1) Chloride Level 105 MMOL/L (98-107) Carbon Dioxide Level 27 MMOL/L (21-32) Anion Gap 5 mmol/L (5-15) Blood Urea Nitrogen 31 mg/dL (7-18) H Creatinine 3.3 MG/DL (0.55-1.30) H Estimat Glomerular Filtration Rate 19.2 mL/min (>60) Glucose Level 111 MG/DL (74-106) H Uric Acid 3.2 MG/DL (2.6-7.2) Calcium Level 7.2 MG/DL (8.5-10.1) L Phosphorus Level 1.9 MG/DL (2.5-4.9) L Magnesium Level 1.8 MG/DL (1.8-2.4) Total Bilirubin 0.2 MG/DL (0.2-1.0) Gamma Glutamyl Transpeptidase 33 U/L (5-85) Aspartate Amino Transf (AST/SGOT) 31 U/L (15-37) Alanine Aminotransferase (ALT/SGPT) 20 U/L (12-78) Alkaline Phosphatase 93 U/L (46-116) C-Reactive Protein, Quantitative 10.4 mg/dL (0.00-0.90) H Pro-B-Type Natriuretic Peptide 3213 pg/mL (0-125) H Total Protein 4.9 G/DL (6.4-8.2) L Albumin 1.1 G/DL (3.4-5.0) L Globulin 3.8 g/dL Albumin/Globulin Ratio 0.3 (1.0-2.7) L Thyroid Stimulating Hormone (TSH) 6.575 uiU/mL (0.358-3.740) Objective HEAD AND NECK: No JVD. Right face scar unchanged LUNGS: Clear. CARDIOVASCULAR: Regular. S1 and S2 with no gallop, his chest has a right- sided port. ABDOMEN: Soft.S/P PEG EXTREMITIES: No edema. NICOLÁS VANCE Sep 02, 2017 19:38
[2017-09-02 20:00] VITALS: BP 116/64
--- NOTE | 2017-09-02 21:20 | General Progress Note ---
Assessment/Plan Problem List: (1) Altered level of consciousness ICD Codes: R40.4 - Transient alteration of awareness SNOMED: 5617984 (2) Acute renal failure ICD Codes: N17.9 - Acute kidney failure, unspecified SNOMED: 00466414 (3) Dehydration ICD Codes: E86.0 - Dehydration SNOMED: 28230903 (4) Anemia ICD Codes: D64.9 - Anemia, unspecified SNOMED: 502942837 (5) Lymphoma ICD Codes: C85.90 - Non-Hodgkin lymphoma, unspecified, unspecified site SNOMED: 588661399 (6) Malnutrition ICD Codes: E46 - Unspecified protein-calorie malnutrition SNOMED: 12312842 (7) Hypothyroid ICD Codes: E03.9 - Hypothyroidism, unspecified SNOMED: 46109471 Status: progressing Assessment/Plan reviewed chart and labs abx per id no acute events sepsis improving lymphoma Subjective ROS Limited/Unobtainable: Yes Allergies: Coded Allergies: No Known Allergies (Unverified , 08/17/17) Objective Last 24 Hour Vital Signs Date Time Temp Pulse Resp B/P (MAP) Pulse Ox O2 Delivery O2 Flow Rate FiO2 09/02/17 20:00 98.2 75 20 116/64 98 09/02/17 16:15 97.7 96 20 119/65 97 Room Air 09/02/17 12:15 97.4 86 21 125/76 99 Room Air 09/02/17 08:15 98.1 81 19 119/71 97 Room Air 09/02/17 04:00 97.5 90 20 121/74 97 09/02/17 04:00 97 Room Air 09/02/17 03:13 97.5 09/02/17 00:00 97 Room Air 09/02/17 00:00 97.5 93 20 113/70 97 Intake and Output 09/02/17 09/03/17 19:00 07:00 Intake Total 760 ml Output Total 545 ml Balance 215 ml Free Water 100 ml Tube Feeding 660 ml Output Urine Total 450 ml Drainage Total 95 ml # Bowel Movements 8 Laboratory Tests 09/02/17 04:00: White Blood Count 7.9, Red Blood Count 2.51L, Hemoglobin 8.0L, Hematocrit 24.0L , Mean Corpuscular Volume 96, Mean Corpuscular Hemoglobin 31.7H, Mean Corpuscular Hemoglobin Concent 33.2, Red Cell Distribution Width 17.5H, Platelet Count 191, Mean Platelet Volume 5.3L, Neutrophils (%) (Auto) 84.2H, Lymphocytes (%) (Auto) 7.7L, Monocytes (%) (Auto) 6.9, Eosinophils (%) (Auto) 0.8, Basophils (%) (Auto) 0.5, Sodium Level 137, Potassium Level 3.6, Chloride Level 105, Carbon Dioxide Level 27, Anion Gap 5, Blood Urea Nitrogen 31H, Creatinine 3.3H, Estimat Glomerular Filtration Rate 19.2, Glucose Level 111H, Uric Acid 3.2, Calcium Level 7.2L, Phosphorus Level 1.9L, Magnesium Level 1.8, Total Bilirubin 0.2, Gamma Glutamyl Transpeptidase 33, Aspartate Amino Transf ( AST/SGOT) 31, Alanine Aminotransferase (ALT/SGPT) 20, Alkaline Phosphatase 93, C -Reactive Protein, Quantitative 10.4H, Pro-B-Type Natriuretic Peptide 3213H, Total Protein 4.9L, Albumin 1.1L, Globulin 3.8, Albumin/Globulin Ratio 0.3L, Thyroid Stimulating Hormone (TSH) 6.575H Height (Feet): 5 Height (Inches): 6.00 Weight (Pounds): 120 Cardiovascular: normal rate Respiratory/Chest: lungs clear Abdomen: soft Fern Stafford MD Sep 02, 2017 21:20
[2017-09-02] MEDS: Dyna-Hex 2% Top Sol 2oz TOPIC SCH (21:38)
[2017-09-02] MEDS: Tamsulosin 0.4mg cap ORAL SCH (21:39)
[2017-09-02] MEDS: Epogen (for ESRD on dialysis) SUBQ SCH ×2 (21:39→22:06)
[2017-09-03] VITALS: BP 113/64
[2017-09-03] MEDS: Hydromorphone 0.5mg/0.5ml inj IVP PRN ×5 (00:52→20:33)
[2017-09-03] MEDS: traMADol 50mg tab GT PRN ×2 (01:31→16:39)
[2017-09-03 04:00] VITALS: BP 112/68
[2017-09-03] MEDS: D5NS 1,000 ML IV SCH (05:18)
[2017-09-03 07:09] LABS: MEAN CORPUSCULAR HGB CONC 33.1 G/DL (32.0-36.0); MEAN CORPUSCULAR VOLUME 97 FL (80-99); MEAN PLATELET VOLUME 4.9 FL (6.5-10.1); PLATELET COUNT 204 K/UL (150-450); RED BLOOD COUNT 2.38 M/UL (4.70-6.10); RED CELL DISTRIBUTION WIDTH 17.2 % (11.6-14.8); WHITE BLOOD COUNT 7.1 K/UL (4.8-10.8)
[2017-09-03 07:23] LABS: ANION GAP 6 mmol/L (5-15); CALCIUM 7.5 MG/DL (8.5-10.1); CARBON DIOXIDE 26 MMOL/L (21-32); CHLORIDE 107 MMOL/L (98-107); CREATININE 3.3 MG/DL (0.55-1.30); GLOMERULAR FILTRATION RATE 19.2 mL/min (>60); POTASSIUM 3.7 MMOL/L (3.5-5.1); SODIUM 139 MMOL/L (136-145)
[2017-09-03 07:26] LABS: HEPATITIS BE ANTIGEN/CEDARS NONREACTIVE (NONREACTIVE)
[2017-09-03 07:27] LABS: HEPATITIS C VIRUS AB/CEDARS 16.77 S/CO (<0.80)
[2017-09-03 08:00] VITALS: BP 111/68
[2017-09-03] MEDS: levETIRAcetam 500mg/5ml Liquid NG SCH ×2 (08:31→20:33)
[2017-09-03 10:30] LABS: ANISOCYTOSIS 1+; BAND NEUTROPHILS % (MANUAL) 1 % (0-8); BASOPHILS % (MANUAL) 0 % (0-2); EOSINOPHILS % (MANUAL) 1 % (0-3); LYMPHOCYTES % (MANUAL) 8 % (20-45); NEUTROPHILS % (MANUAL) 80 % (45-75); PLATELET ESTIMATE ADEQUATE; PLATELET MORPHOLOGY NORMAL; TOTAL CELLS COUNTED 100
[2017-09-03 10:32] LABS: HYPOCHROMASIA 1+
--- NOTE | 2017-09-03 11:32 | Infectious Diseases Prog Note ---
Assessment/Plan Assessment/Plan A: Recent necrotizing fascitis of R hip ? 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 Encephalopathy Hepatitis C Cellular immune deficiency, low CD4 GI bleeding, source esophagus Sinusitis P: observe off antibiotic Subjective ROS Limited/Unobtainable: Yes Allergies: Coded Allergies: No Known Allergies (Unverified , 08/17/17) Objective Vital Signs Last 24 Hour Vital Signs Date Time Temp Pulse Resp B/P (MAP) Pulse Ox O2 Delivery O2 Flow Rate FiO2 09/03/17 08:00 98.0 73 18 111/68 98 Room Air 09/03/17 04:00 98.2 78 19 112/68 97 Room Air 09/03/17 04:00 97 Room Air 09/03/17 00:00 98.2 82 20 113/64 97 09/03/17 00:00 97 Room Air 09/02/17 20:00 98 Room Air 09/02/17 20:00 98.2 75 20 116/64 98 09/02/17 16:15 97.7 96 20 119/65 97 Room Air 09/02/17 12:15 97.4 86 21 125/76 99 Room Air Height (Feet): 5 Height (Inches): 6.00 Weight (Pounds): 120 General Appearance: no acute distress HEENT: mucous membranes moist Respiratory/Chest: lungs clear Cardiovascular: normal rate Abdomen: soft, non tender Extremities: no edema Neurologic/Psychiatric: other - sleeping Laboratory Tests Test 09/03/17 05:15 White Blood Count 7.1 K/UL (4.8-10.8) Red Blood Count 2.38 M/UL (4.70-6.10) L Hemoglobin 7.6 G/DL (14.2-18.0) L Hematocrit 23.0 % (42.0-52.0) L Mean Corpuscular Volume 97 FL (80-99) Mean Corpuscular Hemoglobin 32.0 PG (27.0-31.0) H Mean Corpuscular Hemoglobin Concent 33.1 G/DL (32.0-36.0) Red Cell Distribution Width 17.2 % (11.6-14.8) H Platelet Count 204 K/UL (150-450) Mean Platelet Volume 4.9 FL (6.5-10.1) L Neutrophils (%) (Auto) % (45.0-75.0) Lymphocytes (%) (Auto) % (20.0-45.0) Monocytes (%) (Auto) % (1.0-10.0) Eosinophils (%) (Auto) % (0.0-3.0) Basophils (%) (Auto) % (0.0-2.0) Differential Total Cells Counted 100 Neutrophils % (Manual) 80 % (45-75) H Lymphocytes % (Manual) 8 % (20-45) L Monocytes % (Manual) 10 % (1-10) Eosinophils % (Manual) 1 % (0-3) Basophils % (Manual) 0 % (0-2) Band Neutrophils 1 % (0-8) Platelet Estimate Adequate Platelet Morphology Normal Hypochromasia 1+ Anisocytosis 1+ Sodium Level 139 MMOL/L (136-145) Potassium Level 3.7 MMOL/L (3.5-5.1) Chloride Level 107 MMOL/L (98-107) Carbon Dioxide Level 26 MMOL/L (21-32) Anion Gap 6 mmol/L (5-15) Blood Urea Nitrogen 32 mg/dL (7-18) H Creatinine 3.3 MG/DL (0.55-1.30) H Estimat Glomerular Filtration Rate 19.2 mL/min (>60) Glucose Level 111 MG/DL (74-106) H Calcium Level 7.5 MG/DL (8.5-10.1) L Current Medications Medications (Trade) Dose Ordered Sig/Srini Route PRN Reason Start Time Stop Time Status Last Admin Dose Admin Acetaminophen (Tylenol) 650 mg Q4H PRN ORAL fever 08/23/17 18:10 09/16/17 18:09 Chlorhexidine Gluconate (Sandra-Hex 2%) 1 applic DAILY@1999 TOPIC 08/23/17 20:00 09/17/17 19:59 09/02/17 21:38 Dextrose (Dextrose 50%) STAT PRN IV Hypoglycemia 08/23/17 18:10 09/16/17 18:09 Dextrose/Sodium Chloride 1,000 ml @ 50 mls/hr Q20H IV 09/01/17 12:00 10/01/17 11:59 09/03/17 05:18 Epoetin Yovani (Procrit (for ESRD on dialysis)) 10,000 units MON-WED-SAT SUBQ 09/02/17 21:00 10/02/17 20:59 09/02/17 22:06 Hydromorphone HCl (Dilaudid) 0.5 mg Q4H PRN IVP For Pain 09/01/17 12:00 09/08/17 11:59 09/03/17 09:43 Levetiracetam (Keppra) 750 mg Q12HR NG 09/01/17 21:00 10/01/17 20:59 09/03/17 08:31 Levothyroxine Sodium (Synthroid) 75 mcg ACBREAKFAST GT 08/24/17 06:30 09/21/17 06:29 09/03/17 05:11 Loperamide HCl (Imodium) 2 mg Q6H PRN NG Diarrhea 09/02/17 16:15 10/02/17 16:14 Ondansetron HCl (Zofran) 4 mg Q6H PRN IVP Nausea & Vomiting 08/23/17 18:10 09/16/17 18:09 08/25/17 18:10 Polyethylene Glycol (Miralax) 17 gm HSPRN PRN GT Constipation 08/23/17 18:10 09/21/17 18:09 Potassium Chloride (K-Dur) 20 meq DAILY NG 08/30/17 09:00 09/29/17 08:59 09/03/17 08:31 Ranitidine HCl (Zantac) 150 mg TWICE A DAY GT 09/01/17 18:00 10/01/17 17:59 09/03/17 08:30 Tamsulosin HCl (Flomax) 0.4 mg BEDTIME ORAL 09/01/17 21:00 10/01/17 20:59 09/02/17 21:39 Tramadol HCl (Ultram) 50 mg Q6H PRN GT BREAKTHROUGH PAIN 09/01/17 12:00 09/08/17 11:59 09/03/17 01:31 TOYA ENGLISH Sep 03, 2017 11:32
--- NOTE | 2017-09-03 11:37 | Nephrology Progress Note ---
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 If need for dialysis arise then arrange for OP HD. re eval meds stool c dif Has PEG now HD last 08/29 K and Phos supplement as needed Consider transfusion when needed start EPO kidney DANI : Bilateral echogenic slightly small kidneys, consistent with medical renal disease Negative for hydronephrosis. 2D Echo- Left ventricular ejection fraction estimated to be grossly normal. Avoid nephrotoxics- Subjective ROS Limited/Unobtainable: No Constitutional: Reports: malaise Objective Objective Last 24 Hour Vital Signs Date Time Temp Pulse Resp B/P (MAP) Pulse Ox O2 Delivery O2 Flow Rate FiO2 09/03/17 08:00 98.0 73 18 111/68 98 Room Air 09/03/17 04:00 98.2 78 19 112/68 97 Room Air 09/03/17 04:00 97 Room Air 09/03/17 00:00 98.2 82 20 113/64 97 09/03/17 00:00 97 Room Air 09/02/17 20:00 98 Room Air 09/02/17 20:00 98.2 75 20 116/64 98 09/02/17 16:15 97.7 96 20 119/65 97 Room Air 09/02/17 12:15 97.4 86 21 125/76 99 Room Air Laboratory Tests 09/03/17 05:15: White Blood Count 7.1, Red Blood Count 2.38L, Hemoglobin 7.6L, Hematocrit 23.0L , Mean Corpuscular Volume 97, Mean Corpuscular Hemoglobin 32.0H, Mean Corpuscular Hemoglobin Concent 33.1, Red Cell Distribution Width 17.2H, Platelet Count 204, Mean Platelet Volume 4.9L, Neutrophils (%) (Auto) , Lymphocytes (%) (Auto) , Monocytes (%) (Auto) , Eosinophils (%) (Auto) , Basophils (%) (Auto) , Differential Total Cells Counted 100, Neutrophils % ( Manual) 80H, Lymphocytes % (Manual) 8L, Monocytes % (Manual) 10, Eosinophils % ( Manual) 1, Basophils % (Manual) 0, Band Neutrophils 1, Platelet Estimate Adequate, Platelet Morphology Normal, Hypochromasia 1+, Anisocytosis 1+, Sodium Level 139, Potassium Level 3.7, Chloride Level 107, Carbon Dioxide Level 26, Anion Gap 6, Blood Urea Nitrogen 32H, Creatinine 3.3H, Estimat Glomerular Filtration Rate 19.2, Glucose Level 111H, Calcium Level 7.5L Height (Feet): 5 Height (Inches): 6.00 Weight (Pounds): 120 General Appearance: no apparent distress Objective PE not changed RYAN MCCLOUD Sep 03, 2017 11:37
[2017-09-03 12:00] VITALS: BP 111/67
--- NOTE | 2017-09-03 12:43 | GI Progress Note ---
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 Kitchen. Assessment/Plan SUMMARY FINDINGS: 1. Severe friable oozing blood from distal esophagus, most probably from chemo. 2. Gastritis, status post biopsy. Follow up biopsy results >> unremarkable, negative for H. Pylori Hep C positive >> outpatient Tx s/p PEG, some loose BM noted RECOMMENDATIONS: okay for DC per GI standpoint tolerating TF push PO ppi BID + Carafate monitor H&H, prn transfusion electrolyte correction abx fu OT eval fu labs Subjective Subjective limited Objective Last 24 Hour Vital Signs Date Time Temp Pulse Resp B/P (MAP) Pulse Ox O2 Delivery O2 Flow Rate FiO2 09/03/17 08:00 98.0 73 18 111/68 98 Room Air 09/03/17 04:00 98.2 78 19 112/68 97 Room Air 09/03/17 04:00 97 Room Air 09/03/17 00:00 98.2 82 20 113/64 97 09/03/17 00:00 97 Room Air 09/02/17 20:00 98 Room Air 09/02/17 20:00 98.2 75 20 116/64 98 09/02/17 16:15 97.7 96 20 119/65 97 Room Air Intake and Output 09/03/17 09/04/17 19:00 07:00 Intake Total 250 ml Balance 250 ml IV Total 250 ml Laboratory Tests Test 09/03/17 05:15 White Blood Count 7.1 K/UL (4.8-10.8) Red Blood Count 2.38 M/UL (4.70-6.10) L Hemoglobin 7.6 G/DL (14.2-18.0) L Hematocrit 23.0 % (42.0-52.0) L Mean Corpuscular Volume 97 FL (80-99) Mean Corpuscular Hemoglobin 32.0 PG (27.0-31.0) H Mean Corpuscular Hemoglobin Concent 33.1 G/DL (32.0-36.0) Red Cell Distribution Width 17.2 % (11.6-14.8) H Platelet Count 204 K/UL (150-450) Mean Platelet Volume 4.9 FL (6.5-10.1) L Neutrophils (%) (Auto) % (45.0-75.0) Lymphocytes (%) (Auto) % (20.0-45.0) Monocytes (%) (Auto) % (1.0-10.0) Eosinophils (%) (Auto) % (0.0-3.0) Basophils (%) (Auto) % (0.0-2.0) Differential Total Cells Counted 100 Neutrophils % (Manual) 80 % (45-75) H Lymphocytes % (Manual) 8 % (20-45) L Monocytes % (Manual) 10 % (1-10) Eosinophils % (Manual) 1 % (0-3) Basophils % (Manual) 0 % (0-2) Band Neutrophils 1 % (0-8) Platelet Estimate Adequate Platelet Morphology Normal Hypochromasia 1+ Anisocytosis 1+ Sodium Level 139 MMOL/L (136-145) Potassium Level 3.7 MMOL/L (3.5-5.1) Chloride Level 107 MMOL/L (98-107) Carbon Dioxide Level 26 MMOL/L (21-32) Anion Gap 6 mmol/L (5-15) Blood Urea Nitrogen 32 mg/dL (7-18) H Creatinine 3.3 MG/DL (0.55-1.30) H Estimat Glomerular Filtration Rate 19.2 mL/min (>60) Glucose Level 111 MG/DL (74-106) H Calcium Level 7.5 MG/DL (8.5-10.1) L Height (Feet): 5 Height (Inches): 6.00 Weight (Pounds): 120 General Appearance: WD/WN, no apparent distress, alert, thin Cardiovascular: normal rate Respiratory/Chest: normal breath sounds, no respiratory distress Abdominal Exam: normal bowel sounds, non tender, soft, GT site - c/d/i Extremities: non-tender oLu Jarquin N.P. Sep 03, 2017 12:43
[2017-09-03 16:15] VITALS: BP 115/54
[2017-09-03 20:00] VITALS: BP 112/65
--- NOTE | 2017-09-03 20:10 | General Surgery Progress Note ---
General Surgery-Progress Note Subjective Procedure Performed Wound VAC change for large right hip wound Symptoms: improved Additional Comments doing well. no complaints. wound VAC removed for transfer/discharge. has wet to dry dressings for now. Objective Last 24 Hour Vital Signs Date Time Temp Pulse Resp B/P (MAP) Pulse Ox O2 Delivery O2 Flow Rate FiO2 09/03/17 16:15 97.7 71 21 115/54 97 Room Air 09/03/17 12:00 98.1 73 18 111/67 09/03/17 08:00 98.0 73 18 111/68 98 Room Air 09/03/17 04:00 98.2 78 19 112/68 97 Room Air 09/03/17 04:00 97 Room Air 09/03/17 00:00 98.2 82 20 113/64 97 09/03/17 00:00 97 Room Air I&O Intake and Output 09/03/17 09/04/17 19:00 07:00 Intake Total 1440 ml Output Total 400 ml 300 ml Balance 1040 ml -300 ml Free Water 100 ml IV Total 550 ml Tube Feeding 540 ml Blood Product 250 ml Output Urine Total 400 ml 300 ml # Bowel Movements 3 Dressing: dry, saturated Wound: clean, intact Drains: none Cardiovascular: RSR Respiratory: clear Abdomen: soft, non-tender, present bowel sounds Extremities: no tenderness Laboratory Tests Test 09/03/17 05:15 White Blood Count 7.1 K/UL (4.8-10.8) Red Blood Count 2.38 M/UL (4.70-6.10) L Hemoglobin 7.6 G/DL (14.2-18.0) L Hematocrit 23.0 % (42.0-52.0) L Mean Corpuscular Volume 97 FL (80-99) Mean Corpuscular Hemoglobin 32.0 PG (27.0-31.0) H Mean Corpuscular Hemoglobin Concent 33.1 G/DL (32.0-36.0) Red Cell Distribution Width 17.2 % (11.6-14.8) H Platelet Count 204 K/UL (150-450) Mean Platelet Volume 4.9 FL (6.5-10.1) L Neutrophils (%) (Auto) % (45.0-75.0) Lymphocytes (%) (Auto) % (20.0-45.0) Monocytes (%) (Auto) % (1.0-10.0) Eosinophils (%) (Auto) % (0.0-3.0) Basophils (%) (Auto) % (0.0-2.0) Differential Total Cells Counted 100 Neutrophils % (Manual) 80 % (45-75) H Lymphocytes % (Manual) 8 % (20-45) L Monocytes % (Manual) 10 % (1-10) Eosinophils % (Manual) 1 % (0-3) Basophils % (Manual) 0 % (0-2) Band Neutrophils 1 % (0-8) Platelet Estimate Adequate Platelet Morphology Normal Hypochromasia 1+ Anisocytosis 1+ Sodium Level 139 MMOL/L (136-145) Potassium Level 3.7 MMOL/L (3.5-5.1) Chloride Level 107 MMOL/L (98-107) Carbon Dioxide Level 26 MMOL/L (21-32) Anion Gap 6 mmol/L (5-15) Blood Urea Nitrogen 32 mg/dL (7-18) H Creatinine 3.3 MG/DL (0.55-1.30) H Estimat Glomerular Filtration Rate 19.2 mL/min (>60) Glucose Level 111 MG/DL (74-106) H Calcium Level 7.5 MG/DL (8.5-10.1) L Plan Problems: (1) Wound, open, hip or thigh Assessment & Plan: 62M here for medical evaluation and management. has large right lateral hip wound after episode of soft tissue infection requiring large debridement. wound has been managed at outside facility and will be managed by surgery while in hospital. good granulation tissue over large area of debridement with last VAC change no tissues currently needing debridement.. no signs of active infection. recovering wound vac removed for discharge/transfer. has wet to dry dressing for time being wound vac order and paperwork completed today to ensure patient has VAC upon discharge/transfer. okay to d/c from surgical standpoint -keep wound clean. -okay to change to wet to dry dressings for discharge if portable wound VAC cannot be obtained. -as nutritional status improves will be ready for skin graft but not sure when this will be. needs more protein and caloric intake. thank you for this consultation and allowing me to participate in patients care. Mauricio Mistry Sep 03, 2017 20:10
[2017-09-03] MEDS: Dyna-Hex 2% Top Sol 2oz TOPIC SCH (20:33)
[2017-09-03] MEDS: Tamsulosin 0.4mg cap ORAL SCH (20:34)
--- NOTE | 2017-09-03 21:12 | Cardiology Progress Note ---
Assessment/Plan Assessment/Plan 1. Abnormal electrocardiogram with primary T-wave abnormality, possibly electrolyte derangement. Echocardiogram shows no WMA with normal LVEF. No chest pain or SOB at this time. 2. BNP of more than 5000 possibly due to renal failure and volume overload. 3. Sinus tachycardia, resolved. Subjective Subjective Sinus rhythm at 71. Objective Last 24 Hour Vital Signs Date Time Temp Pulse Resp B/P (MAP) Pulse Ox O2 Delivery O2 Flow Rate FiO2 09/03/17 16:15 97.7 71 21 115/54 97 Room Air 09/03/17 12:00 98.1 73 18 111/67 09/03/17 08:00 98.0 73 18 111/68 98 Room Air 09/03/17 04:00 98.2 78 19 112/68 97 Room Air 09/03/17 04:00 97 Room Air 09/03/17 00:00 98.2 82 20 113/64 97 09/03/17 00:00 97 Room Air Intake and Output 09/03/17 09/04/17 19:00 07:00 Intake Total 1440 ml Output Total 400 ml 300 ml Balance 1040 ml -300 ml Free Water 100 ml IV Total 550 ml Tube Feeding 540 ml Blood Product 250 ml Output Urine Total 400 ml 300 ml # Bowel Movements 3 2D Echo: TDS, normal LVEF, RVSP 15 mmhg, Grade I LVDD Laboratory Tests Test 09/03/17 05:15 White Blood Count 7.1 K/UL (4.8-10.8) Red Blood Count 2.38 M/UL (4.70-6.10) L Hemoglobin 7.6 G/DL (14.2-18.0) L Hematocrit 23.0 % (42.0-52.0) L Mean Corpuscular Volume 97 FL (80-99) Mean Corpuscular Hemoglobin 32.0 PG (27.0-31.0) H Mean Corpuscular Hemoglobin Concent 33.1 G/DL (32.0-36.0) Red Cell Distribution Width 17.2 % (11.6-14.8) H Platelet Count 204 K/UL (150-450) Mean Platelet Volume 4.9 FL (6.5-10.1) L Neutrophils (%) (Auto) % (45.0-75.0) Lymphocytes (%) (Auto) % (20.0-45.0) Monocytes (%) (Auto) % (1.0-10.0) Eosinophils (%) (Auto) % (0.0-3.0) Basophils (%) (Auto) % (0.0-2.0) Differential Total Cells Counted 100 Neutrophils % (Manual) 80 % (45-75) H Lymphocytes % (Manual) 8 % (20-45) L Monocytes % (Manual) 10 % (1-10) Eosinophils % (Manual) 1 % (0-3) Basophils % (Manual) 0 % (0-2) Band Neutrophils 1 % (0-8) Platelet Estimate Adequate Platelet Morphology Normal Hypochromasia 1+ Anisocytosis 1+ Sodium Level 139 MMOL/L (136-145) Potassium Level 3.7 MMOL/L (3.5-5.1) Chloride Level 107 MMOL/L (98-107) Carbon Dioxide Level 26 MMOL/L (21-32) Anion Gap 6 mmol/L (5-15) Blood Urea Nitrogen 32 mg/dL (7-18) H Creatinine 3.3 MG/DL (0.55-1.30) H Estimat Glomerular Filtration Rate 19.2 mL/min (>60) Glucose Level 111 MG/DL (74-106) H Calcium Level 7.5 MG/DL (8.5-10.1) L Objective HEAD AND NECK: No JVD. PERRLA, EOMI LUNGS: Clear. CARDIOVASCULAR: Regular. S1 and S2 with no gallop, right-sided port over the right chest wall ABDOMEN: Soft, NT/ND, S/P PEG EXTREMITIES: No edema, clubbing or cyanosis. NICOLÁS VANCE Sep 03, 2017 21:12
--- NOTE | 2017-09-03 21:16 | General Progress Note ---
Assessment/Plan Problem List: (1) Altered level of consciousness ICD Codes: R40.4 - Transient alteration of awareness SNOMED: 4117056 (2) Acute renal failure ICD Codes: N17.9 - Acute kidney failure, unspecified SNOMED: 34914506 (3) Dehydration ICD Codes: E86.0 - Dehydration SNOMED: 96120786 (4) Anemia ICD Codes: D64.9 - Anemia, unspecified SNOMED: 888756147 (5) Lymphoma ICD Codes: C85.90 - Non-Hodgkin lymphoma, unspecified, unspecified site SNOMED: 540282263 (6) Malnutrition ICD Codes: E46 - Unspecified protein-calorie malnutrition SNOMED: 56808052 (7) Hypothyroid ICD Codes: E03.9 - Hypothyroidism, unspecified SNOMED: 39634909 Status: progressing Assessment/Plan afebrile reviewed meds no bleeding sepsis improving lymphoma Subjective ROS Limited/Unobtainable: Yes Allergies: Coded Allergies: No Known Allergies (Unverified , 08/17/17) Objective Last 24 Hour Vital Signs Date Time Temp Pulse Resp B/P (MAP) Pulse Ox O2 Delivery O2 Flow Rate FiO2 09/03/17 16:15 97.7 71 21 115/54 97 Room Air 09/03/17 12:00 98.1 73 18 111/67 09/03/17 08:00 98.0 73 18 111/68 98 Room Air 09/03/17 04:00 98.2 78 19 112/68 97 Room Air 09/03/17 04:00 97 Room Air 09/03/17 00:00 98.2 82 20 113/64 97 09/03/17 00:00 97 Room Air Intake and Output 09/03/17 09/04/17 19:00 07:00 Intake Total 1440 ml Output Total 400 ml 300 ml Balance 1040 ml -300 ml Free Water 100 ml IV Total 550 ml Tube Feeding 540 ml Blood Product 250 ml Output Urine Total 400 ml 300 ml # Bowel Movements 3 Laboratory Tests 09/03/17 05:15: White Blood Count 7.1, Red Blood Count 2.38L, Hemoglobin 7.6L, Hematocrit 23.0L , Mean Corpuscular Volume 97, Mean Corpuscular Hemoglobin 32.0H, Mean Corpuscular Hemoglobin Concent 33.1, Red Cell Distribution Width 17.2H, Platelet Count 204, Mean Platelet Volume 4.9L, Neutrophils (%) (Auto) , Lymphocytes (%) (Auto) , Monocytes (%) (Auto) , Eosinophils (%) (Auto) , Basophils (%) (Auto) , Differential Total Cells Counted 100, Neutrophils % ( Manual) 80H, Lymphocytes % (Manual) 8L, Monocytes % (Manual) 10, Eosinophils % ( Manual) 1, Basophils % (Manual) 0, Band Neutrophils 1, Platelet Estimate Adequate, Platelet Morphology Normal, Hypochromasia 1+, Anisocytosis 1+, Sodium Level 139, Potassium Level 3.7, Chloride Level 107, Carbon Dioxide Level 26, Anion Gap 6, Blood Urea Nitrogen 32H, Creatinine 3.3H, Estimat Glomerular Filtration Rate 19.2, Glucose Level 111H, Calcium Level 7.5L Height (Feet): 5 Height (Inches): 6.00 Weight (Pounds): 120 Cardiovascular: normal rate Respiratory/Chest: lungs clear Abdomen: soft Fern Stafford MD Sep 03, 2017 21:16
[2017-09-04] VITALS: BP 118/64
[2017-09-04] MEDS: D5NS 1,000 ML IV SCH ×2 (00:36→22:21)
[2017-09-04] MEDS: Hydromorphone 0.5mg/0.5ml inj IVP PRN ×5 (00:39→19:52)
[2017-09-04 04:00] VITALS: BP 124/62
[2017-09-04 07:03] LABS: BASOPHILS % (AUTO) 0.7 % (0.0-2.0); EOSINOPHILS % (AUTO) 1.2 % (0.0-3.0); MEAN CORPUSCULAR HEMOGLOBIN 32.4 PG (27.0-31.0); MEAN CORPUSCULAR HGB CONC 33.4 G/DL (32.0-36.0); MEAN CORPUSCULAR VOLUME 97 FL (80-99); MEAN PLATELET VOLUME 4.9 FL (6.5-10.1); MONOCYTES % (AUTO) 10.1 % (1.0-10.0); NEUTROPHILS % (AUTO) 77.1 % (45.0-75.0); PLATELET COUNT 269 K/UL (150-450); RED BLOOD COUNT 3.23 M/UL (4.70-6.10); RED CELL DISTRIBUTION WIDTH 16.6 % (11.6-14.8); WHITE BLOOD COUNT 8.5 K/UL (4.8-10.8)
[2017-09-04 07:27] LABS: ANION GAP 8 mmol/L (5-15); CALCIUM 7.7 MG/DL (8.5-10.1); CARBON DIOXIDE 24 MMOL/L (21-32); CHLORIDE 108 MMOL/L (98-107); CREATININE 3.1 MG/DL (0.55-1.30); GLOMERULAR FILTRATION RATE 20.7 mL/min (>60); POTASSIUM 4.1 MMOL/L (3.5-5.1); SODIUM 140 MMOL/L (136-145)
[2017-09-04 08:31] VITALS: BP 124/73
[2017-09-04] MEDS: levETIRAcetam 500mg/5ml Liquid NG SCH ×2 (09:24→22:25)
--- NOTE | 2017-09-04 11:01 | General Progress Note ---
Assessment/Plan Assessment/Plan ASSESSMENT AND RECOMMENDATIONS: 1. Upper GI bleed, s/p egd. GI service following. Now with PEG tube 2. Facial lymphoma, status post chemotherapy with radiation. Currently cancer is in remission. Repeat CT of the head no evidence of malignancy. 3. Anemia secondary to chronic disease. Anemia workup has been reviewed. --> transfuse if hgb below 7 --> s/p transfusion 09/03 4. Anemia secondary to kidney disease. --> Nephrology service following. Continue dialysis 5. Altered mental status. Neurology service is evaluating the patient. 6. Necrotizing fasciitis, status post wound VAC and surgery, completed 2 weeks ago. --> continue wound care, improving. Surgery following 7. Thrombocytopenia post surgical as well as due to underlying Hep C--> monitor closely. Has now normalized 8. Hepatitis C Subjective Allergies: Coded Allergies: No Known Allergies (Unverified , 08/17/17) All Systems: reviewed and negative except above Subjective H/H better after transfusion, feeling better Objective Last 24 Hour Vital Signs Date Time Temp Pulse Resp B/P (MAP) Pulse Ox O2 Delivery O2 Flow Rate FiO2 09/04/17 08:31 97.7 76 21 124/73 97 09/04/17 04:00 98.4 75 20 124/62 100 09/04/17 00:00 98.1 73 20 118/64 92 Room Air 09/03/17 20:00 98.2 77 18 112/65 96 Room Air 09/03/17 16:15 97.7 71 21 115/54 97 Room Air 09/03/17 12:00 98.1 73 18 111/67 Laboratory Tests 09/04/17 05:10: White Blood Count 8.5, Red Blood Count 3.23L, Hemoglobin 10.5#L, Hematocrit 31.3 #L, Mean Corpuscular Volume 97, Mean Corpuscular Hemoglobin 32.4H, Mean Corpuscular Hemoglobin Concent 33.4, Red Cell Distribution Width 16.6H, Platelet Count 269, Mean Platelet Volume 4.9L, Neutrophils (%) (Auto) 77.1H, Lymphocytes (%) (Auto) 11.0L, Monocytes (%) (Auto) 10.1H, Eosinophils (%) (Auto ) 1.2, Basophils (%) (Auto) 0.7 09/04/17 05:15: Sodium Level 140, Potassium Level 4.1, Chloride Level 108H, Carbon Dioxide Level 24, Anion Gap 8, Blood Urea Nitrogen 33H, Creatinine 3.1H, Estimat Glomerular Filtration Rate 20.7, Glucose Level 106, Calcium Level 7.7L Height (Feet): 5 Height (Inches): 6.00 Weight (Pounds): 120 General Appearance: WD/WN EENT: normal ENT inspection Neck: normal alignment Abdomen: normal bowel sounds Skin: normal pigmentation Nader Brumfield Sep 04, 2017 11:01
--- NOTE | 2017-09-04 11:23 | GI Progress Note ---
Assessment/Plan Problems: (1) Lymphoma ICD Codes: C85.90 - Non-Hodgkin lymphoma, unspecified, unspecified site SNOMED: 285071729 (2) Malnutrition ICD Codes: E46 - Unspecified protein-calorie malnutrition SNOMED: 33461047 (3) Anemia ICD Codes: D64.9 - Anemia, unspecified SNOMED: 940838595 (4) Anemia due to blood loss ICD Codes: D50.0 - Iron deficiency anemia secondary to blood loss (chronic) SNOMED: 195957717 (5) Dehydration ICD Codes: E86.0 - Dehydration SNOMED: 08406185 (6) UGI bleed ICD Codes: K92.2 - Gastrointestinal hemorrhage, unspecified SNOMED: 93741406 Status: stable Status Narrative Discussed with Dr. Kitchen. Assessment/Plan SUMMARY FINDINGS: 1. Severe friable oozing blood from distal esophagus, most probably from chemo. 2. Gastritis, status post biopsy. Follow up biopsy results >> unremarkable, negative for H. Pylori Hep C positive >> outpatient Tx s/p PEG, some loose BM noted >> positive for cdiff RECOMMENDATIONS: okay for DC per GI standpoint tolerating TF push PO ppi BID + Carafate monitor H&H, prn transfusion electrolyte correction abx >> vanco per ID fu OT eval fu labs Subjective Subjective wants to go home Objective Last 24 Hour Vital Signs Date Time Temp Pulse Resp B/P (MAP) Pulse Ox O2 Delivery O2 Flow Rate FiO2 09/04/17 08:31 97.7 76 21 124/73 97 09/04/17 04:00 98.4 75 20 124/62 100 09/04/17 00:00 98.1 73 20 118/64 92 Room Air 09/03/17 20:00 98.2 77 18 112/65 96 Room Air 09/03/17 16:15 97.7 71 21 115/54 97 Room Air 09/03/17 12:00 98.1 73 18 111/67 Laboratory Tests Test 09/04/17 05:10 09/04/17 05:15 White Blood Count 8.5 K/UL (4.8-10.8) Red Blood Count 3.23 M/UL (4.70-6.10) L Hemoglobin 10.5 G/DL (14.2-18.0) #L Hematocrit 31.3 % (42.0-52.0) #L Mean Corpuscular Volume 97 FL (80-99) Mean Corpuscular Hemoglobin 32.4 PG (27.0-31.0) H Mean Corpuscular Hemoglobin Concent 33.4 G/DL (32.0-36.0) Red Cell Distribution Width 16.6 % (11.6-14.8) H Platelet Count 269 K/UL (150-450) Mean Platelet Volume 4.9 FL (6.5-10.1) L Neutrophils (%) (Auto) 77.1 % (45.0-75.0) H Lymphocytes (%) (Auto) 11.0 % (20.0-45.0) L Monocytes (%) (Auto) 10.1 % (1.0-10.0) H Eosinophils (%) (Auto) 1.2 % (0.0-3.0) Basophils (%) (Auto) 0.7 % (0.0-2.0) Sodium Level 140 MMOL/L (136-145) Potassium Level 4.1 MMOL/L (3.5-5.1) Chloride Level 108 MMOL/L (98-107) H Carbon Dioxide Level 24 MMOL/L (21-32) Anion Gap 8 mmol/L (5-15) Blood Urea Nitrogen 33 mg/dL (7-18) H Creatinine 3.1 MG/DL (0.55-1.30) H Estimat Glomerular Filtration Rate 20.7 mL/min (>60) Glucose Level 106 MG/DL (74-106) Calcium Level 7.7 MG/DL (8.5-10.1) L Microbiology Date/Time Source Procedure Growth Status 09/03/17 15:00 Stool Clostridium difficile Toxin Assay - Final Complete Height (Feet): 5 Height (Inches): 6.00 Weight (Pounds): 120 General Appearance: WD/WN, no apparent distress, alert, thin Cardiovascular: normal rate Respiratory/Chest: normal breath sounds, no respiratory distress Abdominal Exam: normal bowel sounds, non tender, soft, GT site - c/d/i Extremities: non-tender Lou Jarquin N.PMarla Sep 04, 2017 11:23
--- NOTE | 2017-09-04 11:25 | Infectious Diseases Prog Note ---
Assessment/Plan Assessment/Plan A: C. difficile colitis Recent necrotizing fascitis of R hip ? 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 Encephalopathy Hepatitis C Cellular immune deficiency, low CD4 GI bleeding, source esophagus Sinusitis P: PO vancomycin X 14 days Discontinue Loperamide Subjective ROS Limited/Unobtainable: Yes Constitutional: Reports: other - wants to go home Gastrointestinal/Abdominal: Reports: diarrhea Allergies: Coded Allergies: No Known Allergies (Unverified , 08/17/17) Objective Vital Signs Last 24 Hour Vital Signs Date Time Temp Pulse Resp B/P (MAP) Pulse Ox O2 Delivery O2 Flow Rate FiO2 09/04/17 08:31 97.7 76 21 124/73 97 09/04/17 04:00 98.4 75 20 124/62 100 09/04/17 00:00 98.1 73 20 118/64 92 Room Air 09/03/17 20:00 98.2 77 18 112/65 96 Room Air 09/03/17 16:15 97.7 71 21 115/54 97 Room Air 09/03/17 12:00 98.1 73 18 111/67 Height (Feet): 5 Height (Inches): 6.00 Weight (Pounds): 120 General Appearance: no acute distress HEENT: mucous membranes moist Respiratory/Chest: chest wall non-tender Cardiovascular: normal rate Abdomen: soft, non tender, other - GT feeding Extremities: no edema Neurologic/Psychiatric: alert, responsive Microbiology Date/Time Source Procedure Growth Status 09/03/17 15:00 Stool Clostridium difficile Toxin Assay - Final Complete Laboratory Tests Test 09/04/17 05:10 09/04/17 05:15 White Blood Count 8.5 K/UL (4.8-10.8) Red Blood Count 3.23 M/UL (4.70-6.10) L Hemoglobin 10.5 G/DL (14.2-18.0) #L Hematocrit 31.3 % (42.0-52.0) #L Mean Corpuscular Volume 97 FL (80-99) Mean Corpuscular Hemoglobin 32.4 PG (27.0-31.0) H Mean Corpuscular Hemoglobin Concent 33.4 G/DL (32.0-36.0) Red Cell Distribution Width 16.6 % (11.6-14.8) H Platelet Count 269 K/UL (150-450) Mean Platelet Volume 4.9 FL (6.5-10.1) L Neutrophils (%) (Auto) 77.1 % (45.0-75.0) H Lymphocytes (%) (Auto) 11.0 % (20.0-45.0) L Monocytes (%) (Auto) 10.1 % (1.0-10.0) H Eosinophils (%) (Auto) 1.2 % (0.0-3.0) Basophils (%) (Auto) 0.7 % (0.0-2.0) Sodium Level 140 MMOL/L (136-145) Potassium Level 4.1 MMOL/L (3.5-5.1) Chloride Level 108 MMOL/L (98-107) H Carbon Dioxide Level 24 MMOL/L (21-32) Anion Gap 8 mmol/L (5-15) Blood Urea Nitrogen 33 mg/dL (7-18) H Creatinine 3.1 MG/DL (0.55-1.30) H Estimat Glomerular Filtration Rate 20.7 mL/min (>60) Glucose Level 106 MG/DL (74-106) Calcium Level 7.7 MG/DL (8.5-10.1) L Current Medications Medications (Trade) Dose Ordered Sig/Srini Route PRN Reason Start Time Stop Time Status Last Admin Dose Admin Acetaminophen (Tylenol) 650 mg Q4H PRN ORAL fever 08/23/17 18:10 09/16/17 18:09 Chlorhexidine Gluconate (Sandra-Hex 2%) 1 applic DAILY@1999 TOPIC 08/23/17 20:00 09/17/17 19:59 09/03/17 20:33 Dextrose (Dextrose 50%) STAT PRN IV Hypoglycemia 08/23/17 18:10 09/16/17 18:09 Dextrose/Sodium Chloride 1,000 ml @ 50 mls/hr Q20H IV 09/01/17 12:00 10/01/17 11:59 09/04/17 00:36 Epoetin Yovani (Procrit (for ESRD on dialysis)) 10,000 units SAT-SAT-SAT SUBQ 09/02/17 21:00 10/02/17 20:59 09/02/17 22:06 Hydromorphone HCl (Dilaudid) 0.5 mg Q4H PRN IVP For Pain 09/01/17 12:00 09/08/17 11:59 09/04/17 09:25 Levetiracetam (Keppra) 750 mg Q12HR NG 09/01/17 21:00 10/01/17 20:59 09/04/17 09:24 Levothyroxine Sodium (Synthroid) 75 mcg ACBREAKFAST GT 08/24/17 06:30 09/21/17 06:29 09/04/17 05:31 Ondansetron HCl (Zofran) 4 mg Q6H PRN IVP Nausea & Vomiting 08/23/17 18:10 09/16/17 18:09 08/25/17 18:10 Polyethylene Glycol (Miralax) 17 gm HSPRN PRN GT Constipation 08/23/17 18:10 09/21/17 18:09 Potassium Chloride (K-Dur) 20 meq DAILY NG 08/30/17 09:00 09/29/17 08:59 09/04/17 09:24 Ranitidine HCl (Zantac) 150 mg TWICE A DAY GT 09/01/17 18:00 10/01/17 17:59 09/04/17 09:24 Tamsulosin HCl (Flomax) 0.4 mg BEDTIME ORAL 09/01/17 21:00 10/01/17 20:59 09/03/17 20:34 Tramadol HCl (Ultram) 50 mg Q6H PRN GT BREAKTHROUGH PAIN 09/01/17 12:00 09/08/17 11:59 09/03/17 16:39 TOYA ENGLISH Sep 04, 2017 11:25
[2017-09-04 11:32] VITALS: BP 121/71
[2017-09-04] MEDS: traMADol 50mg tab GT PRN (11:50)
[2017-09-04] MEDS ORDERED: Vancomycin oral 125mg/2.5ml ORAL SCH (12:00)
--- NOTE | 2017-09-04 12:31 | Nephrology Progress Note ---
Assessment/Plan Problem List: (1) Acute renal failure (ARF) (2) Malnutrition (3) UGI bleed Assessment: worsening anemia Assessment Cr stable and lower 3.1 Hgb higher post transfusion acute toxic metabolic encephalopathy r/o CVA acute renal failure with possible dehydration Wasted and sever malnutrition Coffee ground vomiting metabolic acidosis e/lyte imbalance intermittent jerks , r/o seizure disorder anemia R facial lymphoma ( on chemo) R left thigh necrotizing fasciitis ( with wound vac) severe protein calorie malnutrition elevated TSH hx of smoking Plan Plan: OK to DC from renal stand Can DC and follow up renal parameters as out patient. If need for dialysis arise then arrange for OP HD. re eval meds stool c dif Has PEG now HD last 08/29 K and Phos supplement as needed Consider transfusion when needed start EPO kidney DANI : Bilateral echogenic slightly small kidneys, consistent with medical renal disease Negative for hydronephrosis. 2D Echo- Left ventricular ejection fraction estimated to be grossly normal. Avoid nephrotoxics- Objective Objective Last 24 Hour Vital Signs Date Time Temp Pulse Resp B/P (MAP) Pulse Ox O2 Delivery O2 Flow Rate FiO2 09/04/17 11:32 97.9 71 20 121/71 96 09/04/17 08:31 97.7 76 21 124/73 97 09/04/17 04:00 98.4 75 20 124/62 100 09/04/17 00:00 98.1 73 20 118/64 92 Room Air 09/03/17 20:00 98.2 77 18 112/65 96 Room Air 09/03/17 16:15 97.7 71 21 115/54 97 Room Air Intake and Output 09/03/17 09/04/17 19:00 07:00 Intake Total 1550 ml 1210 ml Output Total 400 ml 1600 ml Balance 1150 ml -390 ml Free Water 100 ml IV Total 600 ml 550 ml Tube Feeding 600 ml 660 ml Blood Product 250 ml Output Urine Total 400 ml 1600 ml # Bowel Movements 5 Laboratory Tests 09/04/17 05:10: White Blood Count 8.5, Red Blood Count 3.23L, Hemoglobin 10.5#L, Hematocrit 31.3 #L, Mean Corpuscular Volume 97, Mean Corpuscular Hemoglobin 32.4H, Mean Corpuscular Hemoglobin Concent 33.4, Red Cell Distribution Width 16.6H, Platelet Count 269, Mean Platelet Volume 4.9L, Neutrophils (%) (Auto) 77.1H, Lymphocytes (%) (Auto) 11.0L, Monocytes (%) (Auto) 10.1H, Eosinophils (%) (Auto ) 1.2, Basophils (%) (Auto) 0.7 09/04/17 05:15: Sodium Level 140, Potassium Level 4.1, Chloride Level 108H, Carbon Dioxide Level 24, Anion Gap 8, Blood Urea Nitrogen 33H, Creatinine 3.1H, Estimat Glomerular Filtration Rate 20.7, Glucose Level 106, Calcium Level 7.7L Height (Feet): 5 Height (Inches): 6.00 Weight (Pounds): 120 Objective PE not changed RYAN MCCLOUD Sep 04, 2017 12:31
[2017-09-04] MEDS ORDERED: D5 1/2NS 1000ml IV ONE (15:26)
[2017-09-04] MEDS ORDERED: Tubing IV Blood Pump IV ONE (15:26)
[2017-09-04] MEDS ORDERED: NS Irrig 1000ml ONE (15:26)
[2017-09-04 15:50] VITALS: BP 128/67
--- NOTE | 2017-09-04 16:37 | General Surgery Progress Note ---
General Surgery-Progress Note Subjective Procedure Performed Wound VAC change for large right hip wound Additional Comments doing well. not ready for discharge. replace VAC Objective Last 24 Hour Vital Signs Date Time Temp Pulse Resp B/P (MAP) Pulse Ox O2 Delivery O2 Flow Rate FiO2 09/04/17 15:50 97.7 71 20 128/67 98 09/04/17 11:32 97.9 71 20 121/71 96 09/04/17 08:31 97.7 76 21 124/73 97 09/04/17 04:00 98.4 75 20 124/62 100 09/04/17 00:00 98.1 73 20 118/64 92 Room Air 09/03/17 20:00 98.2 77 18 112/65 96 Room Air I&O Intake and Output 09/03/17 09/04/17 19:00 07:00 Intake Total 1550 ml 1270 ml Output Total 400 ml 1600 ml Balance 1150 ml -330 ml Free Water 100 ml IV Total 600 ml 550 ml Tube Feeding 600 ml 720 ml Blood Product 250 ml Output Urine Total 400 ml 1600 ml # Bowel Movements 5 Dressing: saturated Wound: clean Drains: none Cardiovascular: RSR Respiratory: clear Abdomen: soft, non-tender, present bowel sounds Extremities: no tenderness Laboratory Tests Test 09/04/17 05:10 09/04/17 05:15 White Blood Count 8.5 K/UL (4.8-10.8) Red Blood Count 3.23 M/UL (4.70-6.10) L Hemoglobin 10.5 G/DL (14.2-18.0) #L Hematocrit 31.3 % (42.0-52.0) #L Mean Corpuscular Volume 97 FL (80-99) Mean Corpuscular Hemoglobin 32.4 PG (27.0-31.0) H Mean Corpuscular Hemoglobin Concent 33.4 G/DL (32.0-36.0) Red Cell Distribution Width 16.6 % (11.6-14.8) H Platelet Count 269 K/UL (150-450) Mean Platelet Volume 4.9 FL (6.5-10.1) L Neutrophils (%) (Auto) 77.1 % (45.0-75.0) H Lymphocytes (%) (Auto) 11.0 % (20.0-45.0) L Monocytes (%) (Auto) 10.1 % (1.0-10.0) H Eosinophils (%) (Auto) 1.2 % (0.0-3.0) Basophils (%) (Auto) 0.7 % (0.0-2.0) Sodium Level 140 MMOL/L (136-145) Potassium Level 4.1 MMOL/L (3.5-5.1) Chloride Level 108 MMOL/L (98-107) H Carbon Dioxide Level 24 MMOL/L (21-32) Anion Gap 8 mmol/L (5-15) Blood Urea Nitrogen 33 mg/dL (7-18) H Creatinine 3.1 MG/DL (0.55-1.30) H Estimat Glomerular Filtration Rate 20.7 mL/min (>60) Glucose Level 106 MG/DL (74-106) Calcium Level 7.7 MG/DL (8.5-10.1) L Plan Problems: (1) Wound, open, hip or thigh Assessment & Plan: 62M here for medical evaluation and management. has large right lateral hip wound after episode of soft tissue infection requiring large debridement. wound has been managed at outside facility and will be managed by surgery while in hospital. good granulation tissue over large area of debridement with last VAC change no tissues currently needing debridement.. no signs of active infection. recovering wound vac order and paperwork completed today to ensure patient has VAC upon discharge/transfer. -Replace wound VAC since not ready for discharge. -keep wound clean. -okay to change to wet to dry dressings for discharge if portable wound VAC cannot be obtained. -as nutritional status improves will be ready for skin graft but not sure when this will be. needs more protein and caloric intake. thank you for this consultation and allowing me to participate in patients care. Mauricio Mistry Sep 04, 2017 16:37
[2017-09-04] MEDS: Vancomycin oral 125mg/2.5ml ORAL SCH (17:36)
[2017-09-04 20:00] VITALS: BP 120/68
--- NOTE | 2017-09-04 20:32 | General Progress Note ---
Assessment/Plan Problem List: (1) Altered level of consciousness ICD Codes: R40.4 - Transient alteration of awareness SNOMED: 6311220 (2) Acute renal failure ICD Codes: N17.9 - Acute kidney failure, unspecified SNOMED: 45071225 (3) Dehydration ICD Codes: E86.0 - Dehydration SNOMED: 63539914 (4) Anemia ICD Codes: D64.9 - Anemia, unspecified SNOMED: 522582606 (5) Lymphoma ICD Codes: C85.90 - Non-Hodgkin lymphoma, unspecified, unspecified site SNOMED: 889293994 (6) Malnutrition ICD Codes: E46 - Unspecified protein-calorie malnutrition SNOMED: 01060153 (7) Hypothyroid ICD Codes: E03.9 - Hypothyroidism, unspecified SNOMED: 59591938 Assessment/Plan arf improving reviewed chart and labs and meds sepsis improving lymphoma Subjective ROS Limited/Unobtainable: Yes Allergies: Coded Allergies: No Known Allergies (Unverified , 08/17/17) Objective Last 24 Hour Vital Signs Date Time Temp Pulse Resp B/P (MAP) Pulse Ox O2 Delivery O2 Flow Rate FiO2 09/04/17 20:00 97.9 68 18 120/68 98 09/04/17 15:50 97.7 71 20 128/67 98 09/04/17 11:32 97.9 71 20 121/71 96 09/04/17 08:31 97.7 76 21 124/73 97 09/04/17 04:00 98.4 75 20 124/62 100 09/04/17 00:00 98.1 73 20 118/64 92 Room Air Intake and Output 09/03/17 09/04/17 19:00 07:00 Intake Total 1550 ml 1270 ml Output Total 400 ml 1600 ml Balance 1150 ml -330 ml Free Water 100 ml IV Total 600 ml 550 ml Tube Feeding 600 ml 720 ml Blood Product 250 ml Output Urine Total 400 ml 1600 ml # Bowel Movements 5 Laboratory Tests 09/04/17 05:10: White Blood Count 8.5, Red Blood Count 3.23L, Hemoglobin 10.5#L, Hematocrit 31.3 #L, Mean Corpuscular Volume 97, Mean Corpuscular Hemoglobin 32.4H, Mean Corpuscular Hemoglobin Concent 33.4, Red Cell Distribution Width 16.6H, Platelet Count 269, Mean Platelet Volume 4.9L, Neutrophils (%) (Auto) 77.1H, Lymphocytes (%) (Auto) 11.0L, Monocytes (%) (Auto) 10.1H, Eosinophils (%) (Auto ) 1.2, Basophils (%) (Auto) 0.7 09/04/17 05:15: Sodium Level 140, Potassium Level 4.1, Chloride Level 108H, Carbon Dioxide Level 24, Anion Gap 8, Blood Urea Nitrogen 33H, Creatinine 3.1H, Estimat Glomerular Filtration Rate 20.7, Glucose Level 106, Calcium Level 7.7L Height (Feet): 5 Height (Inches): 6.00 Weight (Pounds): 120 Respiratory/Chest: lungs clear Fern Stafford MD Sep 04, 2017 20:32
[2017-09-04] MEDS: Dyna-Hex 2% Top Sol 2oz TOPIC SCH (22:24)
[2017-09-04] MEDS: Tamsulosin 0.4mg cap ORAL SCH (22:25)
[2017-09-04] MEDS: Epogen (for ESRD on dialysis) SUBQ SCH (22:27)
--- NOTE | 2017-09-04 23:40 | Cardiology Progress Note ---
Assessment/Plan Assessment/Plan 1. Abnormal electrocardiogram with primary T-wave abnormality, possibly electrolyte derangement. Echocardiogram shows no WMA with normal LVEF. No chest pain or SOB at this time. 2. BNP of more than 5000 possibly due to renal failure and volume overload. 3. Sinus tachycardia, resolved. Subjective Subjective Sinus rhythm at 68. No chest pain or SOB. Objective Last 24 Hour Vital Signs Date Time Temp Pulse Resp B/P (MAP) Pulse Ox O2 Delivery O2 Flow Rate FiO2 09/04/17 20:00 97.9 68 18 120/68 98 09/04/17 15:50 97.7 71 20 128/67 98 09/04/17 11:32 97.9 71 20 121/71 96 09/04/17 08:31 97.7 76 21 124/73 97 09/04/17 04:00 98.4 75 20 124/62 100 09/04/17 00:00 98.1 73 20 118/64 92 Room Air Intake and Output 09/03/17 09/04/17 19:00 07:00 Intake Total 1550 ml 1270 ml Output Total 400 ml 1600 ml Balance 1150 ml -330 ml Free Water 100 ml IV Total 600 ml 550 ml Tube Feeding 600 ml 720 ml Blood Product 250 ml Output Urine Total 400 ml 1600 ml # Bowel Movements 5 2D Echo: TDS, normal LVEF, RVSP 15 mmhg, Grade I LVDD Laboratory Tests Test 09/04/17 05:10 09/04/17 05:15 White Blood Count 8.5 K/UL (4.8-10.8) Red Blood Count 3.23 M/UL (4.70-6.10) L Hemoglobin 10.5 G/DL (14.2-18.0) #L Hematocrit 31.3 % (42.0-52.0) #L Mean Corpuscular Volume 97 FL (80-99) Mean Corpuscular Hemoglobin 32.4 PG (27.0-31.0) H Mean Corpuscular Hemoglobin Concent 33.4 G/DL (32.0-36.0) Red Cell Distribution Width 16.6 % (11.6-14.8) H Platelet Count 269 K/UL (150-450) Mean Platelet Volume 4.9 FL (6.5-10.1) L Neutrophils (%) (Auto) 77.1 % (45.0-75.0) H Lymphocytes (%) (Auto) 11.0 % (20.0-45.0) L Monocytes (%) (Auto) 10.1 % (1.0-10.0) H Eosinophils (%) (Auto) 1.2 % (0.0-3.0) Basophils (%) (Auto) 0.7 % (0.0-2.0) Sodium Level 140 MMOL/L (136-145) Potassium Level 4.1 MMOL/L (3.5-5.1) Chloride Level 108 MMOL/L (98-107) H Carbon Dioxide Level 24 MMOL/L (21-32) Anion Gap 8 mmol/L (5-15) Blood Urea Nitrogen 33 mg/dL (7-18) H Creatinine 3.1 MG/DL (0.55-1.30) H Estimat Glomerular Filtration Rate 20.7 mL/min (>60) Glucose Level 106 MG/DL (74-106) Calcium Level 7.7 MG/DL (8.5-10.1) L Microbiology Date/Time Source Procedure Growth Status 09/03/17 15:00 Stool Clostridium difficile Toxin Assay - Final Complete Objective HEAD AND NECK: No JVD. PERRLA, EOMI LUNGS: Clear. CARDIOVASCULAR: Regular. S1 and S2 with no gallop, right-sided port over the right chest wall ABDOMEN: Soft, NT/ND, S/P PEG EXTREMITIES: No edema, clubbing or cyanosis. NICOLÁS VANCE Sep 04, 2017 23:40
[2017-09-05] VITALS: BP 131/71
[2017-09-05] MEDS: Hydromorphone 0.5mg/0.5ml inj IVP PRN ×5 (00:17→17:50)
[2017-09-05] MEDS: Vancomycin oral 125mg/2.5ml ORAL SCH ×5 (00:17→23:05)
[2017-09-05 03:17] VITALS: BP 135/73
[2017-09-05] MEDS: traMADol 50mg tab GT PRN ×3 (03:25→21:15)
[2017-09-05 07:03] LABS: BASOPHILS % (AUTO) 0.8 % (0.0-2.0); EOSINOPHILS % (AUTO) 1.7 % (0.0-3.0); LYMPHOCYTES % (AUTO) 12.9 % (20.0-45.0); MEAN CORPUSCULAR HEMOGLOBIN 32.2 PG (27.0-31.0); MEAN CORPUSCULAR HGB CONC 33.2 G/DL (32.0-36.0); MEAN CORPUSCULAR VOLUME 97 FL (80-99); MEAN PLATELET VOLUME 4.8 FL (6.5-10.1); MONOCYTES % (AUTO) 10.4 % (1.0-10.0); NEUTROPHILS % (AUTO) 74.2 % (45.0-75.0); PLATELET COUNT 299 K/UL (150-450); RED CELL DISTRIBUTION WIDTH 16.5 % (11.6-14.8); WHITE BLOOD COUNT 8.5 K/UL (4.8-10.8)
[2017-09-05 07:39] LABS: ANION GAP 10 mmol/L (5-15); CARBON DIOXIDE 22 MMOL/L (21-32); CHLORIDE 109 MMOL/L (98-107); GLOMERULAR FILTRATION RATE 21.5 mL/min (>60); POTASSIUM 3.5 MMOL/L (3.5-5.1); SODIUM 141 MMOL/L (136-145)
[2017-09-05 08:00] VITALS: BP 121/70
[2017-09-05] MEDS: levETIRAcetam 500mg/5ml Liquid NG SCH ×2 (09:17→20:35)
--- NOTE | 2017-09-05 10:43 | Infectious Diseases Prog Note ---
Assessment/Plan Assessment/Plan A: C. difficile colitis Recent necrotizing fascitis of R hip ? 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 Encephalopathy Hepatitis C Cellular immune deficiency, low CD4 GI bleeding, source esophagus Sinusitis P: Continue PO vancomycin X 13 days Subjective ROS Limited/Unobtainable: Yes Allergies: Coded Allergies: No Known Allergies (Unverified , 08/17/17) Objective Vital Signs Last 24 Hour Vital Signs Date Time Temp Pulse Resp B/P (MAP) Pulse Ox O2 Delivery O2 Flow Rate FiO2 09/05/17 08:00 98.1 81 20 121/70 97 09/05/17 04:00 98 Room Air 09/05/17 03:17 96.5 77 20 135/73 98 Room Air 09/05/17 00:00 99 Room Air 09/05/17 00:00 97.7 68 18 131/71 99 09/04/17 20:00 98 Room Air 09/04/17 20:00 97.9 68 18 120/68 98 09/04/17 15:50 97.7 71 20 128/67 98 09/04/17 11:32 97.9 71 20 121/71 96 Height (Feet): 5 Height (Inches): 6.00 Weight (Pounds): 120 General Appearance: no acute distress HEENT: mucous membranes moist Respiratory/Chest: lungs clear Cardiovascular: normal rate Abdomen: soft, non tender Extremities: other - pedal edema Skin: ulcers Neurologic/Psychiatric: other - sleeping Microbiology Date/Time Source Procedure Growth Status 09/03/17 15:00 Stool Clostridium difficile Toxin Assay - Final Complete Laboratory Tests Test 09/05/17 04:40 White Blood Count 8.5 K/UL (4.8-10.8) Red Blood Count 3.00 M/UL (4.70-6.10) L Hemoglobin 9.7 G/DL (14.2-18.0) L Hematocrit 29.0 % (42.0-52.0) L Mean Corpuscular Volume 97 FL (80-99) Mean Corpuscular Hemoglobin 32.2 PG (27.0-31.0) H Mean Corpuscular Hemoglobin Concent 33.2 G/DL (32.0-36.0) Red Cell Distribution Width 16.5 % (11.6-14.8) H Platelet Count 299 K/UL (150-450) Mean Platelet Volume 4.8 FL (6.5-10.1) L Neutrophils (%) (Auto) 74.2 % (45.0-75.0) Lymphocytes (%) (Auto) 12.9 % (20.0-45.0) L Monocytes (%) (Auto) 10.4 % (1.0-10.0) H Eosinophils (%) (Auto) 1.7 % (0.0-3.0) Basophils (%) (Auto) 0.8 % (0.0-2.0) Sodium Level 141 MMOL/L (136-145) Potassium Level 3.5 MMOL/L (3.5-5.1) Chloride Level 109 MMOL/L (98-107) H Carbon Dioxide Level 22 MMOL/L (21-32) Anion Gap 10 mmol/L (5-15) Blood Urea Nitrogen 32 mg/dL (7-18) H Creatinine 3.0 MG/DL (0.55-1.30) H Estimat Glomerular Filtration Rate 21.5 mL/min (>60) Glucose Level 105 MG/DL (74-106) Calcium Level 8.0 MG/DL (8.5-10.1) L Current Medications Medications (Trade) Dose Ordered Sig/Srini Route PRN Reason Start Time Stop Time Status Last Admin Dose Admin Acetaminophen (Tylenol) 650 mg Q4H PRN ORAL fever 08/23/17 18:10 09/16/17 18:09 Chlorhexidine Gluconate (Sandra-Hex 2%) 1 applic DAILY@2000 TOPIC 08/23/17 20:00 09/17/17 19:59 09/04/17 22:24 Dextrose (Dextrose 50%) STAT PRN IV Hypoglycemia 08/23/17 18:10 09/16/17 18:09 Dextrose/Sodium Chloride 1,000 ml @ 50 mls/hr Q20H IV 09/01/17 12:00 10/01/17 11:59 09/04/17 22:21 Epoetin Yovani (Procrit (for ESRD on dialysis)) 10,000 units MON-WED-SAT SUBQ 09/02/17 21:00 10/02/17 20:59 09/04/17 22:27 Hydromorphone HCl (Dilaudid) 0.5 mg Q4H PRN IVP For Pain 09/01/17 12:00 09/08/17 11:59 09/05/17 09:17 Levetiracetam (Keppra) 750 mg Q12HR NG 09/01/17 21:00 10/01/17 20:59 09/05/17 09:17 Levothyroxine Sodium (Synthroid) 75 mcg ACBREAKFAST GT 08/24/17 06:30 09/21/17 06:29 09/05/17 05:26 Ondansetron HCl (Zofran) 4 mg Q6H PRN IVP Nausea & Vomiting 08/23/17 18:10 09/16/17 18:09 08/25/17 18:10 Polyethylene Glycol (Miralax) 17 gm HSPRN PRN GT Constipation 08/23/17 18:10 09/21/17 18:09 Potassium Chloride (K-Dur) 20 meq DAILY NG 08/30/17 09:00 09/29/17 08:59 09/05/17 09:17 Ranitidine HCl (Zantac) 150 mg TWICE A DAY GT 09/01/17 18:00 10/01/17 17:59 09/05/17 09:17 Tamsulosin HCl (Flomax) 0.4 mg BEDTIME ORAL 09/01/17 21:00 10/01/17 20:59 09/04/17 22:25 Tramadol HCl (Ultram) 50 mg Q6H PRN GT BREAKTHROUGH PAIN 09/01/17 12:00 09/08/17 11:59 09/05/17 03:25 Vancomycin HCl (Vancomycin) 125 mg Q6HR ORAL 09/04/17 18:00 09/11/17 17:59 09/05/17 05:26 TOYA ENGLISH Sep 05, 2017 10:43
--- NOTE | 2017-09-05 11:40 | GI Progress Note ---
Assessment/Plan Problems: (1) Lymphoma ICD Codes: C85.90 - Non-Hodgkin lymphoma, unspecified, unspecified site SNOMED: 965480672 (2) Malnutrition ICD Codes: E46 - Unspecified protein-calorie malnutrition SNOMED: 33656289 (3) Anemia ICD Codes: D64.9 - Anemia, unspecified SNOMED: 407311688 (4) Anemia due to blood loss ICD Codes: D50.0 - Iron deficiency anemia secondary to blood loss (chronic) SNOMED: 462069219 (5) Dehydration ICD Codes: E86.0 - Dehydration SNOMED: 03903597 (6) UGI bleed ICD Codes: K92.2 - Gastrointestinal hemorrhage, unspecified SNOMED: 01911759 Status: stable Status Narrative Discussed with Dr. Kitchen. Assessment/Plan SUMMARY FINDINGS: 1. Severe friable oozing blood from distal esophagus, most probably from chemo. 2. Gastritis, status post biopsy. Follow up biopsy results >> unremarkable, negative for H. Pylori Hep C positive >> outpatient Tx s/p PEG RECOMMENDATIONS: okay for DC per GI standpoint tolerating TF push PO ppi BID + Carafate monitor H&H, prn transfusion electrolyte correction abx >> vanco per ID for cdiff fu OT eval fu labs Subjective Subjective wants to go home Objective Last 24 Hour Vital Signs Date Time Temp Pulse Resp B/P (MAP) Pulse Ox O2 Delivery O2 Flow Rate FiO2 09/05/17 08:00 98.1 81 20 121/70 97 09/05/17 04:00 98 Room Air 09/05/17 03:17 96.5 77 20 135/73 98 Room Air 09/05/17 00:00 99 Room Air 09/05/17 00:00 97.7 68 18 131/71 99 09/04/17 20:00 98 Room Air 09/04/17 20:00 97.9 68 18 120/68 98 09/04/17 15:50 97.7 71 20 128/67 98 Intake and Output 09/04/17 09/05/17 19:00 07:00 Intake Total 870 ml 1150 ml Output Total 600 ml 30 ml Balance 270 ml 1120 ml Intake Oral 0 ml Free Water 100 ml IV Total 50 ml 550 ml Tube Feeding 720 ml 600 ml Output Urine Total 600 ml Drainage Total 30 ml # Bowel Movements 4 Laboratory Tests Test 09/05/17 04:40 White Blood Count 8.5 K/UL (4.8-10.8) Red Blood Count 3.00 M/UL (4.70-6.10) L Hemoglobin 9.7 G/DL (14.2-18.0) L Hematocrit 29.0 % (42.0-52.0) L Mean Corpuscular Volume 97 FL (80-99) Mean Corpuscular Hemoglobin 32.2 PG (27.0-31.0) H Mean Corpuscular Hemoglobin Concent 33.2 G/DL (32.0-36.0) Red Cell Distribution Width 16.5 % (11.6-14.8) H Platelet Count 299 K/UL (150-450) Mean Platelet Volume 4.8 FL (6.5-10.1) L Neutrophils (%) (Auto) 74.2 % (45.0-75.0) Lymphocytes (%) (Auto) 12.9 % (20.0-45.0) L Monocytes (%) (Auto) 10.4 % (1.0-10.0) H Eosinophils (%) (Auto) 1.7 % (0.0-3.0) Basophils (%) (Auto) 0.8 % (0.0-2.0) Sodium Level 141 MMOL/L (136-145) Potassium Level 3.5 MMOL/L (3.5-5.1) Chloride Level 109 MMOL/L (98-107) H Carbon Dioxide Level 22 MMOL/L (21-32) Anion Gap 10 mmol/L (5-15) Blood Urea Nitrogen 32 mg/dL (7-18) H Creatinine 3.0 MG/DL (0.55-1.30) H Estimat Glomerular Filtration Rate 21.5 mL/min (>60) Glucose Level 105 MG/DL (74-106) Calcium Level 8.0 MG/DL (8.5-10.1) L Height (Feet): 5 Height (Inches): 6.00 Weight (Pounds): 120 General Appearance: WD/WN, no apparent distress, alert, thin Cardiovascular: normal rate Respiratory/Chest: normal breath sounds, no respiratory distress Abdominal Exam: normal bowel sounds, non tender, soft Extremities: non-tender Lou Jarquin N.PMarla Sep 05, 2017 11:40
[2017-09-05 12:29] VITALS: BP 117/70
--- NOTE | 2017-09-05 12:33 | General Surgery Progress Note ---
General Surgery-Progress Note Subjective Procedure Performed Wound VAC change for large right hip wound Additional Comments doing well. comfortable. Wound VAC replaced yesterday while home VAC being obtained. (paperwork completed) Objective Last 24 Hour Vital Signs Date Time Temp Pulse Resp B/P (MAP) Pulse Ox O2 Delivery O2 Flow Rate FiO2 09/05/17 12:29 97.7 81 20 117/70 96 09/05/17 08:00 98.1 81 20 121/70 97 09/05/17 04:00 98 Room Air 09/05/17 03:17 96.5 77 20 135/73 98 Room Air 09/05/17 00:00 99 Room Air 09/05/17 00:00 97.7 68 18 131/71 99 09/04/17 20:00 98 Room Air 09/04/17 20:00 97.9 68 18 120/68 98 09/04/17 15:50 97.7 71 20 128/67 98 I&O Intake and Output 09/04/17 09/05/17 19:00 07:00 Intake Total 870 ml 1150 ml Output Total 600 ml 30 ml Balance 270 ml 1120 ml Intake Oral 0 ml Free Water 100 ml IV Total 50 ml 550 ml Tube Feeding 720 ml 600 ml Output Urine Total 600 ml Drainage Total 30 ml # Bowel Movements 4 Dressing: dry Wound: clean Drains: wound vac Cardiovascular: RSR Respiratory: clear Abdomen: soft, non-tender, present bowel sounds Extremities: no tenderness Laboratory Tests Test 09/05/17 04:40 White Blood Count 8.5 K/UL (4.8-10.8) Red Blood Count 3.00 M/UL (4.70-6.10) L Hemoglobin 9.7 G/DL (14.2-18.0) L Hematocrit 29.0 % (42.0-52.0) L Mean Corpuscular Volume 97 FL (80-99) Mean Corpuscular Hemoglobin 32.2 PG (27.0-31.0) H Mean Corpuscular Hemoglobin Concent 33.2 G/DL (32.0-36.0) Red Cell Distribution Width 16.5 % (11.6-14.8) H Platelet Count 299 K/UL (150-450) Mean Platelet Volume 4.8 FL (6.5-10.1) L Neutrophils (%) (Auto) 74.2 % (45.0-75.0) Lymphocytes (%) (Auto) 12.9 % (20.0-45.0) L Monocytes (%) (Auto) 10.4 % (1.0-10.0) H Eosinophils (%) (Auto) 1.7 % (0.0-3.0) Basophils (%) (Auto) 0.8 % (0.0-2.0) Sodium Level 141 MMOL/L (136-145) Potassium Level 3.5 MMOL/L (3.5-5.1) Chloride Level 109 MMOL/L (98-107) H Carbon Dioxide Level 22 MMOL/L (21-32) Anion Gap 10 mmol/L (5-15) Blood Urea Nitrogen 32 mg/dL (7-18) H Creatinine 3.0 MG/DL (0.55-1.30) H Estimat Glomerular Filtration Rate 21.5 mL/min (>60) Glucose Level 105 MG/DL (74-106) Calcium Level 8.0 MG/DL (8.5-10.1) L Plan Problems: (1) Wound, open, hip or thigh Assessment & Plan: 62M here for medical evaluation and management. has large right lateral hip wound after episode of soft tissue infection requiring large debridement. wound has been managed at outside facility and will be managed by surgery while in hospital. good granulation tissue over large area of debridement with last VAC change no tissues currently needing debridement.. no signs of active infection. recovering wound vac order and paperwork completed to ensure patient has VAC upon discharge /transfer. -Will change VAC q3 days. replaced 09/04/2017 -keep wound clean. -okay to change to wet to dry dressings for discharge if portable wound VAC cannot be obtained. -as nutritional status improves will be ready for skin graft but not sure when this will be. needs more protein and caloric intake. thank you for this consultation and allowing me to participate in patients care. Mauricio Mistry Sep 05, 2017 12:33
--- NOTE | 2017-09-05 14:03 | Nephrology Progress Note ---
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 If need for dialysis arise then arrange for OP HD. re eval meds stool c dif Has PEG now HD last 08/29 K and Phos supplement as needed Consider transfusion when needed start EPO kidney DANI : Bilateral echogenic slightly small kidneys, consistent with medical renal disease Negative for hydronephrosis. 2D Echo- Left ventricular ejection fraction estimated to be grossly normal. Avoid nephrotoxics- Subjective ROS Limited/Unobtainable: No Constitutional: Reports: malaise Objective Objective Last 24 Hour Vital Signs Date Time Temp Pulse Resp B/P (MAP) Pulse Ox O2 Delivery O2 Flow Rate FiO2 09/05/17 12:29 97.7 81 20 117/70 96 09/05/17 08:00 98.1 81 20 121/70 97 09/05/17 04:00 98 Room Air 09/05/17 03:17 96.5 77 20 135/73 98 Room Air 09/05/17 00:00 99 Room Air 09/05/17 00:00 97.7 68 18 131/71 99 09/04/17 20:00 98 Room Air 09/04/17 20:00 97.9 68 18 120/68 98 09/04/17 15:50 97.7 71 20 128/67 98 Intake and Output 09/04/17 09/05/17 19:00 07:00 Intake Total 870 ml 1150 ml Output Total 600 ml 30 ml Balance 270 ml 1120 ml Intake Oral 0 ml Free Water 100 ml IV Total 50 ml 550 ml Tube Feeding 720 ml 600 ml Output Urine Total 600 ml Drainage Total 30 ml # Bowel Movements 4 Laboratory Tests 09/05/17 04:40: White Blood Count 8.5, Red Blood Count 3.00L, Hemoglobin 9.7L, Hematocrit 29.0L , Mean Corpuscular Volume 97, Mean Corpuscular Hemoglobin 32.2H, Mean Corpuscular Hemoglobin Concent 33.2, Red Cell Distribution Width 16.5H, Platelet Count 299, Mean Platelet Volume 4.8L, Neutrophils (%) (Auto) 74.2, Lymphocytes (%) (Auto) 12.9L, Monocytes (%) (Auto) 10.4H, Eosinophils (%) (Auto ) 1.7, Basophils (%) (Auto) 0.8, Sodium Level 141, Potassium Level 3.5, Chloride Level 109H, Carbon Dioxide Level 22, Anion Gap 10, Blood Urea Nitrogen 32H, Creatinine 3.0H, Estimat Glomerular Filtration Rate 21.5, Glucose Level 105 , Calcium Level 8.0L Height (Feet): 5 Height (Inches): 6.00 Weight (Pounds): 120 General Appearance: no apparent distress Objective PE not changed RYAN MCCLOUD Sep 05, 2017 14:03
[2017-09-05 16:21] VITALS: BP 120/69
[2017-09-05] MEDS ORDERED: D5NS 1000ml IV ONE (16:53)
--- NOTE | 2017-09-05 17:05 | General Progress Note ---
Assessment/Plan Assessment/Plan ASSESSMENT AND RECOMMENDATIONS: 1. Upper GI bleed, s/p egd. GI service following. Now with PEG tube 2. Facial lymphoma, status post chemotherapy with radiation. Currently cancer is in remission. Repeat CT of the head no evidence of malignancy. 3. Anemia secondary to chronic disease. Anemia workup has been reviewed. --> transfuse if hgb below 7 4. Anemia secondary to kidney disease. --> Nephrology service following. Continue dialysis 5. Altered mental status. Neurology service is evaluating the patient. 6. Necrotizing fasciitis, status post wound VAC and surgery, completed 2 weeks ago. --> continue wound care, improving. Surgery following 7. Thrombocytopenia post surgical as well as due to underlying Hep C--> monitor closely. Has now normalized 8. Hepatitis C Subjective Allergies: Coded Allergies: No Known Allergies (Unverified , 08/17/17) All Systems: reviewed and negative except above Subjective NAD Objective Last 24 Hour Vital Signs Date Time Temp Pulse Resp B/P (MAP) Pulse Ox O2 Delivery O2 Flow Rate FiO2 09/05/17 16:21 97.7 78 18 120/69 98 09/05/17 12:29 97.7 81 20 117/70 96 09/05/17 08:00 98.1 81 20 121/70 97 09/05/17 04:00 98 Room Air 09/05/17 03:17 96.5 77 20 135/73 98 Room Air 09/05/17 00:00 99 Room Air 09/05/17 00:00 97.7 68 18 131/71 99 09/04/17 20:00 98 Room Air 09/04/17 20:00 97.9 68 18 120/68 98 Intake and Output 09/04/17 09/05/17 19:00 07:00 Intake Total 870 ml 1150 ml Output Total 600 ml 30 ml Balance 270 ml 1120 ml Intake Oral 0 ml Free Water 100 ml IV Total 50 ml 550 ml Tube Feeding 720 ml 600 ml Output Urine Total 600 ml Drainage Total 30 ml # Bowel Movements 4 Laboratory Tests 09/05/17 04:40: White Blood Count 8.5, Red Blood Count 3.00L, Hemoglobin 9.7L, Hematocrit 29.0L , Mean Corpuscular Volume 97, Mean Corpuscular Hemoglobin 32.2H, Mean Corpuscular Hemoglobin Concent 33.2, Red Cell Distribution Width 16.5H, Platelet Count 299, Mean Platelet Volume 4.8L, Neutrophils (%) (Auto) 74.2, Lymphocytes (%) (Auto) 12.9L, Monocytes (%) (Auto) 10.4H, Eosinophils (%) (Auto ) 1.7, Basophils (%) (Auto) 0.8, Sodium Level 141, Potassium Level 3.5, Chloride Level 109H, Carbon Dioxide Level 22, Anion Gap 10, Blood Urea Nitrogen 32H, Creatinine 3.0H, Estimat Glomerular Filtration Rate 21.5, Glucose Level 105 , Calcium Level 8.0L Height (Feet): 5 Height (Inches): 6.00 Weight (Pounds): 120 General Appearance: no apparent distress EENT: normal ENT inspection Neck: normal alignment Cardiovascular: normal peripheral pulses Respiratory/Chest: chest wall non-tender Skin: normal pigmentation Nader Brumfield Sep 05, 2017 17:05
[2017-09-05] MEDS: D5NS 1,000 ML IV SCH (17:50)
[2017-09-05 20:00] VITALS: BP 129/74
[2017-09-05] MEDS: Tamsulosin 0.4mg cap ORAL SCH (20:35)
[2017-09-05] MEDS: Dyna-Hex 2% Top Sol 2oz TOPIC SCH (20:35)
--- NOTE | 2017-09-05 21:07 | General Progress Note ---
Assessment/Plan Problem List: (1) Altered level of consciousness ICD Codes: R40.4 - Transient alteration of awareness SNOMED: 1782454 (2) Acute renal failure ICD Codes: N17.9 - Acute kidney failure, unspecified SNOMED: 30911278 (3) Dehydration ICD Codes: E86.0 - Dehydration SNOMED: 20421953 (4) Anemia ICD Codes: D64.9 - Anemia, unspecified SNOMED: 828755914 (5) Lymphoma ICD Codes: C85.90 - Non-Hodgkin lymphoma, unspecified, unspecified site SNOMED: 263467054 (6) Malnutrition ICD Codes: E46 - Unspecified protein-calorie malnutrition SNOMED: 11064915 (7) Hypothyroid ICD Codes: E03.9 - Hypothyroidism, unspecified SNOMED: 22168789 Status: progressing Assessment/Plan azotemia lymphoma c diff diarrryea Subjective ROS Limited/Unobtainable: Yes Allergies: Coded Allergies: No Known Allergies (Unverified , 08/17/17) Subjective diarhea Objective Last 24 Hour Vital Signs Date Time Temp Pulse Resp B/P (MAP) Pulse Ox O2 Delivery O2 Flow Rate FiO2 09/05/17 20:00 98.1 84 20 129/74 98 Room Air 09/05/17 18:20 97.7 09/05/17 16:21 97.7 78 18 120/69 98 09/05/17 12:29 97.7 81 20 117/70 96 09/05/17 08:00 98.1 81 20 121/70 97 09/05/17 04:00 98 Room Air 09/05/17 03:17 96.5 77 20 135/73 98 Room Air 09/05/17 00:00 99 Room Air 09/05/17 00:00 97.7 68 18 131/71 99 Intake and Output 09/04/17 09/05/17 19:00 07:00 Intake Total 870 ml 1150 ml Output Total 600 ml 30 ml Balance 270 ml 1120 ml Intake Oral 0 ml Free Water 100 ml IV Total 50 ml 550 ml Tube Feeding 720 ml 600 ml Output Urine Total 600 ml Drainage Total 30 ml # Bowel Movements 4 Laboratory Tests 09/05/17 04:40: White Blood Count 8.5, Red Blood Count 3.00L, Hemoglobin 9.7L, Hematocrit 29.0L , Mean Corpuscular Volume 97, Mean Corpuscular Hemoglobin 32.2H, Mean Corpuscular Hemoglobin Concent 33.2, Red Cell Distribution Width 16.5H, Platelet Count 299, Mean Platelet Volume 4.8L, Neutrophils (%) (Auto) 74.2, Lymphocytes (%) (Auto) 12.9L, Monocytes (%) (Auto) 10.4H, Eosinophils (%) (Auto ) 1.7, Basophils (%) (Auto) 0.8, Sodium Level 141, Potassium Level 3.5, Chloride Level 109H, Carbon Dioxide Level 22, Anion Gap 10, Blood Urea Nitrogen 32H, Creatinine 3.0H, Estimat Glomerular Filtration Rate 21.5, Glucose Level 105 , Calcium Level 8.0L Height (Feet): 5 Height (Inches): 6.00 Weight (Pounds): 120 Fern Stafford MD Sep 05, 2017 21:07
[2017-09-06] VITALS (7 sets, daily range): BP systolic 112–149; BP diastolic 49–78
[2017-09-06] MEDS: Hydromorphone 0.5mg/0.5ml inj IVP PRN ×6 (00:02→21:33)
[2017-09-06] MEDS: traMADol 50mg tab GT PRN ×3 (03:20→20:25)
[2017-09-06] MEDS: Vancomycin oral 125mg/2.5ml ORAL SCH ×4 (04:56→23:02)
[2017-09-06 06:38] LABS: EOSINOPHILS % (AUTO) 2.6 % (0.0-3.0); LYMPHOCYTES % (AUTO) 14.5 % (20.0-45.0); MEAN CORPUSCULAR HGB CONC 32.8 G/DL (32.0-36.0); MEAN CORPUSCULAR VOLUME 98 FL (80-99); MEAN PLATELET VOLUME 4.6 FL (6.5-10.1); MONOCYTES % (AUTO) 10.7 % (1.0-10.0); NEUTROPHILS % (AUTO) 71.2 % (45.0-75.0); PLATELET COUNT 317 K/UL (150-450); RED CELL DISTRIBUTION WIDTH 17.5 % (11.6-14.8); WHITE BLOOD COUNT 7.2 K/UL (4.8-10.8)
[2017-09-06 07:01] LABS: ANION GAP 9 mmol/L (5-15); CALCIUM 6.3 MG/DL (8.5-10.1); CARBON DIOXIDE 22 MMOL/L (21-32); CHLORIDE 111 MMOL/L (98-107); CREATININE 2.8 MG/DL (0.55-1.30); GLOMERULAR FILTRATION RATE 23.2 mL/min (>60); POTASSIUM 3.6 MMOL/L (3.5-5.1); SODIUM 141 MMOL/L (136-145)
[2017-09-06] MEDS: levETIRAcetam 500mg/5ml Liquid NG SCH ×2 (09:09→20:24)
--- NOTE | 2017-09-06 09:42 | General Progress Note ---
Assessment/Plan Assessment/Plan ASSESSMENT AND RECOMMENDATIONS: 1. Upper GI bleed, s/p egd. GI service following. Now with PEG tube 2. Facial lymphoma, status post chemotherapy with radiation. Currently cancer is in remission. Repeat CT of the head no evidence of malignancy. 3. Anemia secondary to chronic disease. Anemia workup has been reviewed. --> transfuse if hgb below 7 4. Anemia secondary to kidney disease. --> Nephrology service following. Continue dialysis 5. Altered mental status. Neurology service is evaluating the patient. 6. Necrotizing fasciitis, status post wound VAC and surgery, completed 2 weeks ago. --> continue wound care, improving. Surgery following 7. Thrombocytopenia post surgical as well as due to underlying Hep C--> monitor closely. Has now normalized 8. Hepatitis C Subjective Hematologic/Lymphatic: Reports: anemia Allergies: Coded Allergies: No Known Allergies (Unverified , 08/17/17) All Systems: reviewed and negative except above Subjective Nofevers, no bleeding. Objective Last 24 Hour Vital Signs Date Time Temp Pulse Resp B/P (MAP) Pulse Ox O2 Delivery O2 Flow Rate FiO2 09/06/17 08:15 97.6 79 20 127/76 97 Room Air 09/06/17 05:23 97.0 09/06/17 04:19 97.0 09/06/17 04:00 97.0 76 20 125/69 98 Room Air 09/06/17 00:02 97.9 77 20 112/62 99 Room Air 09/05/17 20:00 98.1 84 20 129/74 98 Room Air 09/05/17 16:21 97.7 78 18 120/69 98 09/05/17 12:29 97.7 81 20 117/70 96 Intake and Output 09/05/17 09/06/17 19:00 07:00 Intake Total 1070 ml 550 ml Output Total 900 ml Balance 1070 ml -350 ml Free Water 300 ml IV Total 50 ml 550 ml Tube Feeding 720 ml Output Urine Total 900 ml # Bowel Movements 5 Laboratory Tests 09/06/17 05:35: White Blood Count 7.2, Red Blood Count 2.80L, Hemoglobin 9.0L, Hematocrit 27.4L , Mean Corpuscular Volume 98, Mean Corpuscular Hemoglobin 32.0H, Mean Corpuscular Hemoglobin Concent 32.8, Red Cell Distribution Width 17.5H, Platelet Count 317, Mean Platelet Volume 4.6L, Neutrophils (%) (Auto) 71.2, Lymphocytes (%) (Auto) 14.5L, Monocytes (%) (Auto) 10.7H, Eosinophils (%) (Auto ) 2.6, Basophils (%) (Auto) 1.0, Sodium Level 141, Potassium Level 3.6, Chloride Level 111H, Carbon Dioxide Level 22, Anion Gap 9, Blood Urea Nitrogen 31H, Creatinine 2.8H, Estimat Glomerular Filtration Rate 23.2, Glucose Level 99 , Calcium Level 6.3#L Height (Feet): 5 Height (Inches): 6.00 Weight (Pounds): 120 General Appearance: no apparent distress EENT: normal ENT inspection Neck: non-tender, normal alignment Cardiovascular: normal rate, regularly irregular, no JVD Respiratory/Chest: chest wall non-tender Edema: 1+ Pedal (L), 1+ Pedal (R) Skin: normal pigmentation Nader Brumfield Sep 06, 2017 09:42
--- NOTE | 2017-09-06 12:30 | General Surgery Progress Note ---
General Surgery-Progress Note Subjective Procedure Performed Wound VAC change for large right hip wound Symptoms: improved Additional Comments doing well. comfortable. still with multiple BM's daily. wound vac in place and functional. drainage serous Objective Last 24 Hour Vital Signs Date Time Temp Pulse Resp B/P (MAP) Pulse Ox O2 Delivery O2 Flow Rate FiO2 09/06/17 09:39 97.6 09/06/17 08:15 97.6 79 20 127/76 97 Room Air 09/06/17 04:19 97.0 09/06/17 04:00 97.0 76 20 125/69 98 Room Air 09/06/17 00:02 97.9 77 20 112/62 99 Room Air 09/05/17 20:00 98.1 84 20 129/74 98 Room Air 09/05/17 16:21 97.7 78 18 120/69 98 I&O Intake and Output 09/05/17 09/06/17 19:00 07:00 Intake Total 1070 ml 550 ml Output Total 900 ml Balance 1070 ml -350 ml Free Water 300 ml IV Total 50 ml 550 ml Tube Feeding 720 ml Output Urine Total 900 ml # Bowel Movements 5 Dressing: dry Wound: clean Drains: wound vac Respiratory: clear Abdomen: soft, flat, non-tender, present bowel sounds Extremities: no tenderness Laboratory Tests Test 09/06/17 05:35 White Blood Count 7.2 K/UL (4.8-10.8) Red Blood Count 2.80 M/UL (4.70-6.10) L Hemoglobin 9.0 G/DL (14.2-18.0) L Hematocrit 27.4 % (42.0-52.0) L Mean Corpuscular Volume 98 FL (80-99) Mean Corpuscular Hemoglobin 32.0 PG (27.0-31.0) H Mean Corpuscular Hemoglobin Concent 32.8 G/DL (32.0-36.0) Red Cell Distribution Width 17.5 % (11.6-14.8) H Platelet Count 317 K/UL (150-450) Mean Platelet Volume 4.6 FL (6.5-10.1) L Neutrophils (%) (Auto) 71.2 % (45.0-75.0) Lymphocytes (%) (Auto) 14.5 % (20.0-45.0) L Monocytes (%) (Auto) 10.7 % (1.0-10.0) H Eosinophils (%) (Auto) 2.6 % (0.0-3.0) Basophils (%) (Auto) 1.0 % (0.0-2.0) Sodium Level 141 MMOL/L (136-145) Potassium Level 3.6 MMOL/L (3.5-5.1) Chloride Level 111 MMOL/L (98-107) H Carbon Dioxide Level 22 MMOL/L (21-32) Anion Gap 9 mmol/L (5-15) Blood Urea Nitrogen 31 mg/dL (7-18) H Creatinine 2.8 MG/DL (0.55-1.30) H Estimat Glomerular Filtration Rate 23.2 mL/min (>60) Glucose Level 99 MG/DL (74-106) Calcium Level 6.3 MG/DL (8.5-10.1) #L Plan Problems: (1) Wound, open, hip or thigh Assessment & Plan: 62M here for medical evaluation and management. has large right lateral hip wound after episode of soft tissue infection requiring large debridement. wound has been managed at outside facility and will be managed by surgery while in hospital. good granulation tissue over large area of debridement with last VAC change no tissues currently needing debridement.. no signs of active infection. recovering wound vac order and paperwork completed to ensure patient has VAC upon discharge /transfer. -Will change VAC q3 days. replaced 09/04/2017. will likely replace tomorrow -keep wound clean. -abx as per ID for c diff. -okay to change to wet to dry dressings for discharge if portable wound VAC cannot be obtained. -as nutritional status improves will be ready for skin graft but not sure when this will be. needs more protein and caloric intake. thank you for this consultation and allowing me to participate in patients care. Mauricio Mistry Sep 06, 2017 12:30
[2017-09-06] MEDS: D5NS 1,000 ML IV SCH (12:36)
--- NOTE | 2017-09-06 13:59 | Nephrology Progress Note ---
Assessment/Plan Problem List: (1) Acute renal failure (ARF) (2) Malnutrition (3) UGI bleed Assessment: worsening anemia (4) C. 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 If need for dialysis arise then arrange for OP HD. re eval meds stool c dif Has PEG now HD last 08/29 no further HD needed K and Phos supplement as needed Consider transfusion when needed start EPO kidney DANI : Bilateral echogenic slightly small kidneys, consistent with medical renal disease Negative for hydronephrosis. 2D Echo- Left ventricular ejection fraction estimated to be grossly normal. Avoid nephrotoxics- Subjective ROS Limited/Unobtainable: No Constitutional: Reports: malaise Objective Objective Last 24 Hour Vital Signs Date Time Temp Pulse Resp B/P (MAP) Pulse Ox O2 Delivery O2 Flow Rate FiO2 09/06/17 13:43 97.6 09/06/17 12:31 97.6 09/06/17 12:15 97.1 70 20 143/60 99 Room Air 09/06/17 08:15 97.6 79 20 127/76 97 Room Air 09/06/17 04:00 97.0 76 20 125/69 98 Room Air 09/06/17 00:02 97.9 77 20 112/62 99 Room Air 09/05/17 20:00 98.1 84 20 129/74 98 Room Air 09/05/17 16:21 97.7 78 18 120/69 98 Intake and Output 09/05/17 09/06/17 19:00 07:00 Intake Total 1070 ml 550 ml Output Total 900 ml Balance 1070 ml -350 ml Free Water 300 ml IV Total 50 ml 550 ml Tube Feeding 720 ml Output Urine Total 900 ml # Bowel Movements 5 Laboratory Tests 09/06/17 05:35: White Blood Count 7.2, Red Blood Count 2.80L, Hemoglobin 9.0L, Hematocrit 27.4L , Mean Corpuscular Volume 98, Mean Corpuscular Hemoglobin 32.0H, Mean Corpuscular Hemoglobin Concent 32.8, Red Cell Distribution Width 17.5H, Platelet Count 317, Mean Platelet Volume 4.6L, Neutrophils (%) (Auto) 71.2, Lymphocytes (%) (Auto) 14.5L, Monocytes (%) (Auto) 10.7H, Eosinophils (%) (Auto ) 2.6, Basophils (%) (Auto) 1.0, Sodium Level 141, Potassium Level 3.6, Chloride Level 111H, Carbon Dioxide Level 22, Anion Gap 9, Blood Urea Nitrogen 31H, Creatinine 2.8H, Estimat Glomerular Filtration Rate 23.2, Glucose Level 99 , Calcium Level 6.3#L Height (Feet): 5 Height (Inches): 6.00 Weight (Pounds): 120 General Appearance: no apparent distress Objective PE not changed RYAN MCCLOUD Sep 06, 2017 13:59
--- NOTE | 2017-09-06 14:42 | GI Progress Note ---
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 Kitchen. Assessment/Plan SUMMARY FINDINGS: 1. Severe friable oozing blood from distal esophagus, most probably from chemo. 2. Gastritis, status post biopsy. Follow up biopsy results >> unremarkable, negative for H. Pylori Hep C positive >> outpatient Tx s/p PEG RECOMMENDATIONS: okay for DC per GI standpoint tolerating TF push PO ppi BID + Carafate monitor H&H, prn transfusion electrolyte correction abx >> vanco per ID for cdiff fu OT eval fu labs Subjective Subjective wants to go home Objective Last 24 Hour Vital Signs Date Time Temp Pulse Resp B/P (MAP) Pulse Ox O2 Delivery O2 Flow Rate FiO2 09/06/17 13:43 97.6 09/06/17 12:31 97.6 09/06/17 12:15 97.1 70 20 143/60 99 Room Air 09/06/17 08:15 97.6 79 20 127/76 97 Room Air 09/06/17 04:00 97.0 76 20 125/69 98 Room Air 09/06/17 00:02 97.9 77 20 112/62 99 Room Air 09/05/17 20:00 98.1 84 20 129/74 98 Room Air 09/05/17 16:21 97.7 78 18 120/69 98 Intake and Output 09/05/17 09/06/17 19:00 07:00 Intake Total 1070 ml 550 ml Output Total 900 ml Balance 1070 ml -350 ml Free Water 300 ml IV Total 50 ml 550 ml Tube Feeding 720 ml Output Urine Total 900 ml # Bowel Movements 5 Laboratory Tests Test 09/06/17 05:35 White Blood Count 7.2 K/UL (4.8-10.8) Red Blood Count 2.80 M/UL (4.70-6.10) L Hemoglobin 9.0 G/DL (14.2-18.0) L Hematocrit 27.4 % (42.0-52.0) L Mean Corpuscular Volume 98 FL (80-99) Mean Corpuscular Hemoglobin 32.0 PG (27.0-31.0) H Mean Corpuscular Hemoglobin Concent 32.8 G/DL (32.0-36.0) Red Cell Distribution Width 17.5 % (11.6-14.8) H Platelet Count 317 K/UL (150-450) Mean Platelet Volume 4.6 FL (6.5-10.1) L Neutrophils (%) (Auto) 71.2 % (45.0-75.0) Lymphocytes (%) (Auto) 14.5 % (20.0-45.0) L Monocytes (%) (Auto) 10.7 % (1.0-10.0) H Eosinophils (%) (Auto) 2.6 % (0.0-3.0) Basophils (%) (Auto) 1.0 % (0.0-2.0) Sodium Level 141 MMOL/L (136-145) Potassium Level 3.6 MMOL/L (3.5-5.1) Chloride Level 111 MMOL/L (98-107) H Carbon Dioxide Level 22 MMOL/L (21-32) Anion Gap 9 mmol/L (5-15) Blood Urea Nitrogen 31 mg/dL (7-18) H Creatinine 2.8 MG/DL (0.55-1.30) H Estimat Glomerular Filtration Rate 23.2 mL/min (>60) Glucose Level 99 MG/DL (74-106) Calcium Level 6.3 MG/DL (8.5-10.1) #L Height (Feet): 5 Height (Inches): 6.00 Weight (Pounds): 120 General Appearance: WD/WN, no apparent distress, alert Cardiovascular: normal rate Respiratory/Chest: normal breath sounds, no respiratory distress Abdominal Exam: normal bowel sounds, non tender, soft, GT site - c/d/i Extremities: non-tender Jarquin,Lou Hobson N.P. Sep 06, 2017 14:42
--- NOTE | 2017-09-06 16:26 | Infectious Diseases Prog Note ---
Assessment/Plan Assessment/Plan A: C. difficile colitis Recent necrotizing fascitis of R hip ? 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 Encephalopathy Hepatitis C Cellular immune deficiency, low CD4 GI bleeding, source esophagus Sinusitis P: Continue PO vancomycin X 12 days Can be discharged to home with GT vancomycin Subjective ROS Limited/Unobtainable: Yes Gastrointestinal/Abdominal: Reports: diarrhea, other - soft stool Allergies: Coded Allergies: No Known Allergies (Unverified , 08/17/17) Objective Vital Signs Last 24 Hour Vital Signs Date Time Temp Pulse Resp B/P (MAP) Pulse Ox O2 Delivery O2 Flow Rate FiO2 09/06/17 13:43 97.6 09/06/17 12:31 97.6 09/06/17 12:15 97.1 70 20 143/60 99 Room Air 09/06/17 08:15 97.6 79 20 127/76 97 Room Air 09/06/17 04:00 97.0 76 20 125/69 98 Room Air 09/06/17 00:02 97.9 77 20 112/62 99 Room Air 09/05/17 20:00 98.1 84 20 129/74 98 Room Air Height (Feet): 5 Height (Inches): 6.00 Weight (Pounds): 120 General Appearance: no acute distress HEENT: mucous membranes moist Respiratory/Chest: lungs clear Cardiovascular: normal rate, other - Portocath Abdomen: soft, non tender, other - GT feeding Skin: ulcers, other - R hip woud-vac Neurologic/Psychiatric: alert, responsive Laboratory Tests Test 09/06/17 05:35 White Blood Count 7.2 K/UL (4.8-10.8) Red Blood Count 2.80 M/UL (4.70-6.10) L Hemoglobin 9.0 G/DL (14.2-18.0) L Hematocrit 27.4 % (42.0-52.0) L Mean Corpuscular Volume 98 FL (80-99) Mean Corpuscular Hemoglobin 32.0 PG (27.0-31.0) H Mean Corpuscular Hemoglobin Concent 32.8 G/DL (32.0-36.0) Red Cell Distribution Width 17.5 % (11.6-14.8) H Platelet Count 317 K/UL (150-450) Mean Platelet Volume 4.6 FL (6.5-10.1) L Neutrophils (%) (Auto) 71.2 % (45.0-75.0) Lymphocytes (%) (Auto) 14.5 % (20.0-45.0) L Monocytes (%) (Auto) 10.7 % (1.0-10.0) H Eosinophils (%) (Auto) 2.6 % (0.0-3.0) Basophils (%) (Auto) 1.0 % (0.0-2.0) Sodium Level 141 MMOL/L (136-145) Potassium Level 3.6 MMOL/L (3.5-5.1) Chloride Level 111 MMOL/L (98-107) H Carbon Dioxide Level 22 MMOL/L (21-32) Anion Gap 9 mmol/L (5-15) Blood Urea Nitrogen 31 mg/dL (7-18) H Creatinine 2.8 MG/DL (0.55-1.30) H Estimat Glomerular Filtration Rate 23.2 mL/min (>60) Glucose Level 99 MG/DL (74-106) Calcium Level 6.3 MG/DL (8.5-10.1) #L Current Medications Medications (Trade) Dose Ordered Sig/Srini Route PRN Reason Start Time Stop Time Status Last Admin Dose Admin Acetaminophen (Tylenol) 650 mg Q4H PRN ORAL fever 08/23/17 18:10 09/16/17 18:09 Chlorhexidine Gluconate (Sandra-Hex 2%) 1 applic DAILY@2000 TOPIC 08/23/17 20:00 09/17/17 19:59 09/05/17 20:35 Dextrose (Dextrose 50%) STAT PRN IV Hypoglycemia 08/23/17 18:10 09/16/17 18:09 Dextrose/Sodium Chloride 1,000 ml @ 50 mls/hr Q20H IV 09/01/17 12:00 10/01/17 11:59 09/06/17 12:36 Epoetin Yovani (Procrit (for ESRD on dialysis)) 10,000 units SAT-SAT-SAT SUBQ 09/02/17 21:00 10/02/17 20:59 09/04/17 22:27 Famotidine (Pepcid) 20 mg BID GT 09/05/17 20:00 1/20/18 19:59 09/06/17 09:09 Hydromorphone HCl (Dilaudid) 0.5 mg Q4H PRN IVP For Pain 09/01/17 12:00 09/08/17 11:59 09/06/17 12:42 Levetiracetam (Keppra) 750 mg Q12HR NG 09/01/17 21:00 10/01/17 20:59 09/06/17 09:09 Levothyroxine Sodium (Synthroid) 75 mcg ACBREAKFAST GT 08/24/17 06:30 09/21/17 06:29 09/06/17 05:28 Ondansetron HCl (Zofran) 4 mg Q6H PRN IVP Nausea & Vomiting 08/23/17 18:10 09/16/17 18:09 08/25/17 18:10 Polyethylene Glycol (Miralax) 17 gm HSPRN PRN GT Constipation 08/23/17 18:10 09/21/17 18:09 Potassium Chloride (K-Dur) 20 meq DAILY NG 08/30/17 09:00 09/29/17 08:59 09/06/17 09:09 Tamsulosin HCl (Flomax) 0.4 mg BEDTIME ORAL 09/01/17 21:00 10/01/17 20:59 09/05/17 20:35 Tramadol HCl (Ultram) 50 mg Q6H PRN GT BREAKTHROUGH PAIN 09/01/17 12:00 09/08/17 11:59 09/06/17 11:32 Vancomycin HCl (Vancomycin) 125 mg Q6HR ORAL 09/04/17 18:00 09/11/17 17:59 09/06/17 12:36 TOYA ENGLISH Sep 06, 2017 16:26
[2017-09-06] MEDS ORDERED: D5NS 1000ml IV ONE (17:13)
[2017-09-06] MEDS: Dyna-Hex 2% Top Sol 2oz TOPIC SCH (20:23)
[2017-09-06] MEDS: Tamsulosin 0.4mg cap ORAL SCH (20:24)
[2017-09-06] MEDS: Epogen (for ESRD on dialysis) SUBQ SCH (20:34)
--- NOTE | 2017-09-06 20:55 | General Progress Note ---
Assessment/Plan Problem List: (1) Altered level of consciousness ICD Codes: R40.4 - Transient alteration of awareness SNOMED: 0593124 (2) Acute renal failure ICD Codes: N17.9 - Acute kidney failure, unspecified SNOMED: 59225988 (3) Dehydration ICD Codes: E86.0 - Dehydration SNOMED: 92190612 (4) Anemia ICD Codes: D64.9 - Anemia, unspecified SNOMED: 900382547 (5) Lymphoma ICD Codes: C85.90 - Non-Hodgkin lymphoma, unspecified, unspecified site SNOMED: 221681120 (6) Malnutrition ICD Codes: E46 - Unspecified protein-calorie malnutrition SNOMED: 38810714 (7) Hypothyroid ICD Codes: E03.9 - Hypothyroidism, unspecified SNOMED: 10782312 Assessment/Plan dehydration improving dc in am lymphoma c diff diarrhea resolved Subjective ROS Limited/Unobtainable: Yes Allergies: Coded Allergies: No Known Allergies (Unverified , 08/17/17) Subjective diarhea Objective Last 24 Hour Vital Signs Date Time Temp Pulse Resp B/P (MAP) Pulse Ox O2 Delivery O2 Flow Rate FiO2 09/06/17 17:18 97.5 09/06/17 16:15 97.5 78 19 149/49 99 Room Air 09/06/17 12:31 97.6 09/06/17 12:15 97.1 70 20 143/60 99 Room Air 09/06/17 08:15 97.6 79 20 127/76 97 Room Air 09/06/17 04:00 97.0 76 20 125/69 98 Room Air 09/06/17 00:02 97.9 77 20 112/62 99 Room Air Intake and Output 09/05/17 09/06/17 19:00 07:00 Intake Total 1070 ml 550 ml Output Total 900 ml Balance 1070 ml -350 ml Free Water 300 ml IV Total 50 ml 550 ml Tube Feeding 720 ml Output Urine Total 900 ml # Bowel Movements 5 Laboratory Tests 09/06/17 05:35: White Blood Count 7.2, Red Blood Count 2.80L, Hemoglobin 9.0L, Hematocrit 27.4L , Mean Corpuscular Volume 98, Mean Corpuscular Hemoglobin 32.0H, Mean Corpuscular Hemoglobin Concent 32.8, Red Cell Distribution Width 17.5H, Platelet Count 317, Mean Platelet Volume 4.6L, Neutrophils (%) (Auto) 71.2, Lymphocytes (%) (Auto) 14.5L, Monocytes (%) (Auto) 10.7H, Eosinophils (%) (Auto ) 2.6, Basophils (%) (Auto) 1.0, Sodium Level 141, Potassium Level 3.6, Chloride Level 111H, Carbon Dioxide Level 22, Anion Gap 9, Blood Urea Nitrogen 31H, Creatinine 2.8H, Estimat Glomerular Filtration Rate 23.2, Glucose Level 99 , Calcium Level 6.3#L Height (Feet): 5 Height (Inches): 6.00 Weight (Pounds): 120 General Appearance: confused Fern Stafford MD Sep 06, 2017 20:55
[2017-09-07] VITALS: BP 124/77
[2017-09-07] MEDS: Hydromorphone 0.5mg/0.5ml inj IVP PRN ×4 (01:31→13:07)
[2017-09-07] MEDS: traMADol 50mg tab GT PRN ×3 (03:44→16:27)
[2017-09-07 04:00] VITALS: BP 134/77
[2017-09-07] MEDS: Vancomycin oral 125mg/2.5ml ORAL SCH ×2 (05:03→13:07)
--- NOTE | 2017-09-07 07:53 | General Progress Note ---
Assessment/Plan Problem List: (1) Lymphoma ICD Codes: C85.90 - Non-Hodgkin lymphoma, unspecified, unspecified site SNOMED: 255240134 (2) Anemia ICD Codes: D64.9 - Anemia, unspecified SNOMED: 470367941 (3) UGI bleed ICD Codes: K92.2 - Gastrointestinal hemorrhage, unspecified SNOMED: 24312020 Assessment/Plan SUMMARY FINDINGS: 1. Severe friable oozing blood from distal esophagus, most probably from chemo. 2. Gastritis, status post biopsy. Follow up biopsy results >> unremarkable, negative for H. Pylori Hep C positive >> outpatient Tx s/p PEG RECOMMENDATIONS: okay for DC per GI standpoint tolerating TF push PO ppi BID + Carafate monitor H&H, prn transfusion electrolyte correction abx >> vanco per ID for cdiff fu OT eval fu labs Subjective ROS Limited/Unobtainable: No Allergies: Coded Allergies: No Known Allergies (Unverified , 08/17/17) Objective Last 24 Hour Vital Signs Date Time Temp Pulse Resp B/P (MAP) Pulse Ox O2 Delivery O2 Flow Rate FiO2 09/07/17 05:59 96.6 09/07/17 04:43 96.6 09/07/17 04:00 97.3 67 19 134/77 100 Room Air 09/07/17 00:00 96.6 69 19 124/77 97 Room Air 09/06/17 22:00 97.2 81 20 135/78 93 Room Air 09/06/17 20:00 98.1 70 19 121/69 99 Room Air 09/06/17 16:15 97.5 78 19 149/49 99 Room Air 09/06/17 12:15 97.1 70 20 143/60 99 Room Air 09/06/17 08:15 97.6 79 20 127/76 97 Room Air Intake and Output 09/06/17 09/07/17 19:00 07:00 Intake Total 50 ml 550 ml Output Total 600 ml 550 ml Balance -550 ml 0 ml IV Total 50 ml 550 ml Output Urine Total 600 ml 550 ml # Bowel Movements 2 1 Height (Feet): 5 Height (Inches): 6.00 Weight (Pounds): 120 General Appearance: no apparent distress EENT: normal ENT inspection Neck: supple Cardiovascular: normal rate Respiratory/Chest: decreased breath sounds Abdomen: normal bowel sounds, non tender, soft Extremities: non-tender SUE PORTILLO Sep 07, 2017 07:53
[2017-09-07 08:00] VITALS: BP 145/52
[2017-09-07] MEDS: D5NS 1,000 ML IV SCH (08:00)
[2017-09-07] MEDS: levETIRAcetam 500mg/5ml Liquid NG SCH (09:21)
--- NOTE | 2017-09-07 09:25 | General Progress Note ---
Assessment/Plan Problem List: (1) Altered level of consciousness ICD Codes: R40.4 - Transient alteration of awareness SNOMED: 3066756 (2) Acute renal failure ICD Codes: N17.9 - Acute kidney failure, unspecified SNOMED: 01427817 (3) Dehydration ICD Codes: E86.0 - Dehydration SNOMED: 59565315 (4) Anemia ICD Codes: D64.9 - Anemia, unspecified SNOMED: 355873410 (5) Lymphoma ICD Codes: C85.90 - Non-Hodgkin lymphoma, unspecified, unspecified site SNOMED: 648824463 (6) Malnutrition ICD Codes: E46 - Unspecified protein-calorie malnutrition SNOMED: 88908827 (7) Hypothyroid ICD Codes: E03.9 - Hypothyroidism, unspecified SNOMED: 56071893 Status: progressing Assessment/Plan c diff gave dc order already Subjective ROS Limited/Unobtainable: Yes Allergies: Coded Allergies: No Known Allergies (Unverified , 08/17/17) Subjective diarhea Objective Last 24 Hour Vital Signs Date Time Temp Pulse Resp B/P (MAP) Pulse Ox O2 Delivery O2 Flow Rate FiO2 09/07/17 08:00 97.7 71 18 145/52 99 09/07/17 05:59 96.6 09/07/17 04:43 96.6 09/07/17 04:00 97.3 67 19 134/77 100 Room Air 09/07/17 00:00 96.6 69 19 124/77 97 Room Air 09/06/17 22:00 97.2 81 20 135/78 93 Room Air 09/06/17 20:00 98.1 70 19 121/69 99 Room Air 09/06/17 16:15 97.5 78 19 149/49 99 Room Air 09/06/17 12:15 97.1 70 20 143/60 99 Room Air Intake and Output 09/06/17 09/07/17 19:00 07:00 Intake Total 50 ml 550 ml Output Total 600 ml 550 ml Balance -550 ml 0 ml IV Total 50 ml 550 ml Output Urine Total 600 ml 550 ml # Bowel Movements 2 1 Height (Feet): 5 Height (Inches): 6.00 Weight (Pounds): 120 Fern Stafford MD Sep 07, 2017 09:25
--- NOTE | 2017-09-07 10:33 | Infectious Diseases Prog Note ---
Assessment/Plan Assessment/Plan antibiotics : po vancomycin A 1. c.diff colitis 2. rectal VRE colonization 3. renal failure 4. hepatitis C 5. GI bleeding 6. facial lymphoma 7. recent necrotizing fasciitis of right hip P 1. continue po vancomycin 2. will follow up cultures Subjective ROS Limited/Unobtainable: Yes Allergies: Coded Allergies: No Known Allergies (Unverified , 08/17/17) Objective Vital Signs Last 24 Hour Vital Signs Date Time Temp Pulse Resp B/P (MAP) Pulse Ox O2 Delivery O2 Flow Rate FiO2 09/07/17 08:00 97.7 71 18 145/52 99 09/07/17 05:59 96.6 09/07/17 04:43 96.6 09/07/17 04:00 97.3 67 19 134/77 100 Room Air 09/07/17 00:00 96.6 69 19 124/77 97 Room Air 09/06/17 22:00 97.2 81 20 135/78 93 Room Air 09/06/17 20:00 98.1 70 19 121/69 99 Room Air 09/06/17 16:15 97.5 78 19 149/49 99 Room Air 09/06/17 12:15 97.1 70 20 143/60 99 Room Air Height (Feet): 5 Height (Inches): 6.00 Weight (Pounds): 120 Respiratory/Chest: lungs clear Cardiovascular: normal rate, regular rhythm, no gallop/murmur Abdomen: soft, non tender, other - GT, right hip VAC Extremities: no edema, other - right subclavian LUIS OBREGON Sep 07, 2017 10:33
--- NOTE | 2017-09-07 11:37 | General Surgery Progress Note ---
General Surgery-Progress Note Subjective Procedure Performed Wound VAC change for large right hip wound Symptoms: improved Additional Comments comfortable. wound VAC on but will be removed for discharge. happy to go home! Objective Last 24 Hour Vital Signs Date Time Temp Pulse Resp B/P (MAP) Pulse Ox O2 Delivery O2 Flow Rate FiO2 09/07/17 09:51 97.7 09/07/17 08:00 97.7 71 18 145/52 99 09/07/17 04:43 96.6 09/07/17 04:00 97.3 67 19 134/77 100 Room Air 09/07/17 00:00 96.6 69 19 124/77 97 Room Air 09/06/17 22:00 97.2 81 20 135/78 93 Room Air 09/06/17 20:00 98.1 70 19 121/69 99 Room Air 09/06/17 16:15 97.5 78 19 149/49 99 Room Air 09/06/17 12:15 97.1 70 20 143/60 99 Room Air I&O Intake and Output 09/06/17 09/07/17 19:00 07:00 Intake Total 50 ml 550 ml Output Total 750 ml 550 ml Balance -700 ml 0 ml IV Total 50 ml 550 ml Output Urine Total 600 ml 550 ml Drainage Total 150 ml # Bowel Movements 2 1 Dressing: dry Wound: clean Drains: wound vac Cardiovascular: RSR Respiratory: clear Abdomen: soft, non-tender, present bowel sounds Extremities: no tenderness Plan Problems: (1) Wound, open, hip or thigh Assessment & Plan: 62M here for medical evaluation and management. has large right lateral hip wound after episode of soft tissue infection requiring large debridement. wound has been managed at outside facility and will be managed by surgery while in hospital. good granulation tissue over large area of debridement with last VAC change no tissues currently needing debridement.. no signs of active infection. recovering wound vac order and paperwork completed to ensure patient has VAC upon discharge /transfer. -okay to d/c from surgical standpoint -okay to change to wet to dry dressings for discharge if portable wound VAC cannot be obtained. -as nutritional status improves will be ready for skin graft but not sure when this will be. needs more protein and caloric intake. thank you for this consultation and allowing me to participate in patients care. Mauricio Mistry Sep 07, 2017 11:37
[2017-09-07 12:00] VITALS: BP 140/62
[2017-09-07] MEDS ORDERED: VANCOMYCIN HCL500 MG GT (12:12)
[2017-09-07] MEDS ORDERED: POTASSIUM CHLO20 ME1 GT (12:13)
[2017-09-07] MEDS ORDERED: ZOFRAN ODT4 MG GT (12:14)
--- NOTE | 2017-09-07 12:36 | Nephrology Progress Note ---
Assessment/Plan Problem List: (1) Acute renal failure (ARF) (2) Malnutrition (3) UGI bleed Assessment: worsening anemia (4) C. 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 If need for dialysis arise then arrange for OP HD. re eval meds stool c dif Has PEG now HD last 08/29 no further HD needed K and Phos supplement as needed Consider transfusion when needed start EPO kidney DANI : Bilateral echogenic slightly small kidneys, consistent with medical renal disease Negative for hydronephrosis. 2D Echo- Left ventricular ejection fraction estimated to be grossly normal. Avoid nephrotoxics- Subjective ROS Limited/Unobtainable: No Constitutional: Reports: malaise Objective Objective Last 24 Hour Vital Signs Date Time Temp Pulse Resp B/P (MAP) Pulse Ox O2 Delivery O2 Flow Rate FiO2 09/07/17 12:00 98.0 74 18 140/62 97 09/07/17 11:56 97.7 09/07/17 09:51 97.7 09/07/17 08:00 97.7 71 18 145/52 99 09/07/17 04:00 97.3 67 19 134/77 100 Room Air 09/07/17 00:00 96.6 69 19 124/77 97 Room Air 09/06/17 22:00 97.2 81 20 135/78 93 Room Air 09/06/17 20:00 98.1 70 19 121/69 99 Room Air 09/06/17 16:15 97.5 78 19 149/49 99 Room Air Intake and Output 09/06/17 09/07/17 19:00 07:00 Intake Total 50 ml 550 ml Output Total 750 ml 550 ml Balance -700 ml 0 ml IV Total 50 ml 550 ml Output Urine Total 600 ml 550 ml Drainage Total 150 ml # Bowel Movements 2 1 Height (Feet): 5 Height (Inches): 6.00 Weight (Pounds): 120 General Appearance: no apparent distress Objective PE not changed RYAN MCCLOUD Sep 07, 2017 12:36
[2017-09-07] MEDS ORDERED: Heplock Flush 100 units/ml 3 ml syr INJ ONE (14:45)
[2017-09-07 16:00] VITALS: BP 138/74
--- NOTE | 2017-09-11 22:54 | Discharge Summary ---
Discharge Summary Hospital Course Date of Admission Aug 17, 2017 at 20:59 Date of Discharge Sep 07, 2017 at 16:47 Admitting Diagnosis ALTERD MENTAL STATUS HPI Silver Schaefer is a 62 year old male who was admitted on Aug 17, 2017 at 20:59 for Altered Mental Status Hospital Course dc summary #[id number] Discharge Medications Continued Medications: Acetaminophen* (Acetaminophen 325MG Tablet*) 325 Mg Tablet 650 MG ORAL Q4H PRN for For Pain, TAB Famotidine (Famotidine) 20 Mg Tablet 20 MG ORAL TWICE A DAY, #60 TAB 0 Refills Levetiracetam (Keppra) 750 Mg Tablet 750 MG GT Q12HR, TAB Levothyroxine Sodium* (Levothyroxine Sodium*) 75 Mcg Tablet 75 MCG GT ACBREAKFAST, TAB Take in the morning on an empty stomach, at least 30 minutes before food. Ondansetron Odt* (Zofran Odt*) 4 Mg Tab.rapdis 4 MG GT Q6H PRN for Nausea & Vomiting, #30 TAB Polyethylene Glycol 3350 (Polyethylene Glycol 3350) 1 Gm Granules 17 GM MC, GM Potassium Chloride* (K-Dur*) 20 Meq Tab.er.prt 20 MEQ GT DAILY, #7 TAB 0 Refills Tamsulosin Hcl (Tamsulosin Hcl*) 0.4 Mg Cap.er.24h 0.4 MG GT BEDTIME, CAP Tramadol Hcl* (Ultram*) 50 Mg Tablet 50 MG ORAL Q6H PRN for For Pain, #30 TAB 0 Refills Vancomycin Hcl (Vancomycin Hcl) 500 Mg Vial 125 MG GT Q6HR, VIAL Discontinued Medications: Ranitidine Hcl* (Zantac*) 150 Mg Tablet 150 MG GT TWICE A DAY, TAB Discharge Condition Upon Discharge: stable Discharge Disposition Patient was discharged to Home with Home Health(06) Discharge Diagnoses: Ildefonso (Loretta)Estefania NP Sep 11, 2017 22:54
--- NOTE | 2017-09-12 22:45 | Discharge Summary 2 SIG ---
DATE OF ADMISSION: 08/17/2017 DATE OF DISCHARGE: 09/07/2017 REASON FOR ADMISSION: 62-year-old male with history of right facial lymphoma, status post chemotherapy and status post right leg necrotizing fasciitis with wound surgery done outside of the hospital two weeks ago, was brought from the shelter facility with altered mental status. The patient was unable to provide any history and history was provided by his daughter. According to the family member, the patient was awake, alert, and oriented x3 prior to this. The patient was also walking prior to necrotizing fasciitis. No known trauma. Workup in the emergency room revealed evidence of acute renal failure and dehydration as well as metabolic acidosis. CT of the head showed calcification, but could not completely exclude hematoma. Laboratories were significant for bicarbonate - 7 and renal failure with a BUN -88 and creatinine -5.8. Lactic acid -1. Glucose -81. Troponin negative. Pro BNP - 5409. Albumin -2.4. ABG revealed evidence of metabolic acidosis with pH -7.257 and pCO2 - 18.6. Oxygenation was stable. Potassium was within normal limits. The patient was given IV fluids and admitted to ICU for further management with diagnoses of acute renal failure, dehydration, metabolic acidosis, and altered level of consciousness due to the acute toxic metabolic encephalopathy. HOSPITAL COURSE: The patient was admitted. Supplemental oxygen and pulmonary toilet were provided as needed to keep saturation above 92%. MRI of the brain and EEG were ordered along with Neurology evaluation. The patient was started on IV fluids with dextrose( due to elevated sodium) with bicarbonate. Bicarbonate was improving, but creatinine was without significant change. Nephrology consult was requested. The patient was started on empiric antibiotic. ID consult requested. The patient noted to be anemic, likely secondary to chemotherapy, done earlier for lymphoma. Anemia workup was ordered. Wound VAC was continued. Wound care nurse seen and evaluated the patient for wound VAC. NG tube inserted for the medication. The patient was kept NPO. Pain management was provided. Bowel regimen instituted. DVT prophylaxis provided. MRI of the brain subsequently revealed no acute intracranial pathology. Neurologist closely followed initially. Patient with new onset of verbal unresponsiveness and generalized myoclonus. neurologist followed to rule out seizure disorder and meningeal carcinomatosis, given history of lymphoma. The patient was on seizure precaution. The patient was started on Keppra. EEG was abnormal with generalized slowing, but no definite epileptiform activity. MRI did not revealed any evidence of carcinomatosis. Initial troponin was negative, but on 08/19 with minimal elevation-0.073 with return back to negative on 08/20 . Echocardiogram revealed preserved ejection fraction to the extent visualized. Patient had no cardiac complaints. It was felt that single episode of minimally elevated troponin was likely due to acute renal failure and resolved. Hand I Cutter closely followed the patient. The patient was required start of hemodialysis, new onset. Renal ultrasound revealed bilateral echogenicity consistent with medical renal disease. Renal parameters and electrolytes were closely monitored and corrected as needed. Nephrotoxics were avoided. No need for further hemodialysis. Hand I Cutter cleared for discharge. Hemodialysis catheter discontinued. Acute renal failure was likely secondary to dehydration. Last hemodialysis was done on 08/29/2017 and no further hemodialysis was needed. Potassium and phosphorus were replaced as needed. The patient was started on Epogen for anemia of chronic disease. Infectious Diseases closely followed the patient, status post treatment for fungal urinary tract infection. The patient was later observed off antibiotics. However, during the course of stay, the patient was found to be positive for C difficile colitis. The patient was started on oral Vanco as per ID management. Blood cultures were negative. Surgery closely followed the patient. Wound VAC was changed every two days. Wound vacuum was functional and clean. No need for debridement. No signs of active infection. Anemia workup revealed anemia of chronic disease. Counts were closely monitored. The patient required total of four intis of packed red blood cells transfusion. The patient undergone esophagogastroduodenoscopy due to hematemesis with findings of gastritis, severe friable blood from the esophagus, most probably from chemotherapy. The patient was started on PPI and Carafate. No further hematemesis. [facility] closely followed. Anemia was multifactorial due to blood loss ( from hematemesis) and due to chronic kidney disease. Patient started on Epogen. Hemoglobin and hematocrit remained stable prior to discharge. Gastric biopsy was consistent with chronic mild gastritis , but no Helicobacter infection was noted. The patient passed swallow evaluation, but did not eat because it was painful. Subsequently patient undergone PEG placement on 08/31/2017. Strict aspiration and reflux precautions were maintained. The patient was started on G-tube feeding and able to tolerate feeding. Dietary recommendation were implemented for nutritional support to maintain adequate protein calorie intake. Bowel regimen instituted. GI closely followed the patient. Hepatitis panel was positive for hepatitis C. Recommended outpatient treatment for hepatitis C. Continue PPI twice a day and Carafate. Pain management was addressed. The patient was working with physical and occupational therapists. DVT prophylaxis provided. Mental status returned back to baseline. Family decided to take the patient home with home health services. Home health services along with ambulance transportation were arranged. The patient was stable for discharge home with home health services. FINAL DIAGNOSES: 1. Acute toxic metabolic encephalopathy, resolved (likely due to acute renal failure). 2. Acute renal failure on chronic kidney disease, requiring new start of hemodialysis ( currently no further hemodialysis, since acute renal failure resolved). 3. Episode of elevated troponin (secondary to acute renal failure). 4. Dehydration, resolved 5. Metabolic acidosis, resolved. 6. Electrolyte imbalance (hypokalemia, hypomagnesemia), resolved 7. Upper gastrointestinal bleeding. 8. Status post esophagogastroduodenoscopy on 08/20/2017. 9. Gastritis. 10. Anemia due to blood loss 11. Acute anemia requiring blood transfusion. 12. Anemia of chronic renal disease. 13. Dysphagia, status post percutaneous endoscopic gastrostomy. 14 Generalized myoclonus. 15. Possible seizure disorder. 16. Clostridium difficile colitis. 17. Recent necrotizing fasciitis, right hip. 18. Right lateral hip wound with wound VAC. 19. Fungal urinary tract infection, status post treatment. 20. Right facial lymphoma with history of prior chemotherapy. 21. Severe protein-calorie malnutrition. 22. Hepatitis C. 23. History of smoking. DISCHARGE INSTRUCTIONS: The patient was discharged home with home health services. DISCHARGE MEDICATIONS: See medication reconciliation list. Prescription provided for vancomycin for C. diff colitis. Sherif Dailey D.O. Estefania Rehmangregorio N.PMarla DR: ANNMARIE JOB#: [id number] CC: CHYNA
== END 2017-09-07 16:47 | disposition home health service (06) | DRG 469 ==
LOC: EDBD 17:26 → EDBEDREQ 17:50 → EMR 18:20 → ENRESERV 20:51 → EDBEDREQ 20:53 → 2E 20:59 → ICU 22:22 → 2W 08-22 19:20 → 4E 08-23 17:26
PROC: 5A1D70Z Performance of Urinary Filtration, Intermittent, Less than 6 Hours Per Day (ICD-10-PCS; 2017-08-19)
PROC: 0DB68ZX Excision of Stomach, Via Natural or Artificial Opening Endoscopic, Diagnostic (ICD-10-PCS; 2017-08-21)
PROC: 2W0NX6Z Change Pressure Dressing on Right Upper Leg (ICD-10-PCS; 2017-08-22)
PROC: 2W0PX6Z Change Pressure Dressing on Left Upper Leg (ICD-10-PCS; principal; 2017-08-29)
PROC: 0DH63UZ Insertion of Feeding Device into Stomach, Percutaneous Approach (ICD-10-PCS; 2017-08-30 09:24)
DX: N17.9 Acute kidney failure, unspecified (principal); R57.8 Other shock; M72.6 Necrotizing fasciitis; G92 Toxic encephalopathy; E43 Unspecified severe protein-calorie malnutrition; A04.72 Enterocolitis due to Clostridium difficile, not specified as recurrent; D84.8 Other specified immunodeficiencies; B49 Unspecified mycosis; C85.91 Non-Hodgkin lymphoma, unspecified, lymph nodes of head, face, and neck; E87.2 Acidosis; E87.0 Hyperosmolality and hypernatremia; E86.0 Dehydration; Z68.1 Body mass index [BMI] 19.9 or less, adult; E03.9 Hypothyroidism, unspecified; N18.9 Chronic kidney disease, unspecified; D63.1 Anemia in chronic kidney disease; R13.10 Dysphagia, unspecified; H70.91 Unspecified mastoiditis, right ear; E87.6 Hypokalemia; E83.42 Hypomagnesemia; K29.70 Gastritis, unspecified, without bleeding; K22.8 Other specified diseases of esophagus; N39.0 Urinary tract infection, site not specified; B19.20 Unspecified viral hepatitis C without hepatic coma; D64.81 Anemia due to antineoplastic chemotherapy; R00.0 Tachycardia, unspecified; K20.8 Other esophagitis; G40.409 Other generalized epilepsy and epileptic syndromes, not intractable, without status epilepticus; D50.0 Iron deficiency anemia secondary to blood loss (chronic); D69.6 Thrombocytopenia, unspecified; L03.90 Cellulitis, unspecified
CPT/HCPCS: 36415; 36569; 36600; 70450; 70551; 71010; 74000; 74230; 76700; 76775; 76937; 80048; 80053; 80061; 80076; 80202; 81001; 82140; 82378; 82533; 82550; 82607; 82728; 82746; 82803; 82945; 82977; 83036; 83540; 83550; 83605; 83735; 83880; 83930; 84100; 84157; 84165; 84300; 84439; 84443; 84481; 84484; 84550; 85007; 85025; 85384; 85610; 85730; 86140; 86360; 86703; 86706; 86707; 86803; 86850; 86900; 86901; 86920; 87040; 87081; 87086; 87324; 87517; 89050; 89051; 93005; 93306; 94003; 94150; 95819; 99285; C9399; J2250; J2405; J3430; J8499